=== PATIENT | male | born 1940 | race Caucasian/White ===

== ENCOUNTER 2016-08-12 14:34 | Inpatient (IN) | payer OTHER, MEDICARE ==
[2016-08-12] VITALS (8 sets, daily range): BP systolic 136–148; BP diastolic 79–90; PULSE 64–70; TEMP 36.5–36.7; O2SAT 95–98; Ht 165.1 cm; Wt 106.8 kg
[~2016-08-12] VITALS: Ht 165.1 cm; Wt 106.8 kg
[~2016-08-12 14:34] MED LIST: AMT10 PO; BCTRO EXT; BTP80 PO; Boost Nutritional Drink PO; CMD2 PO; CYM60 PO; DICL1GEL28 TOP; LORA-741 PO; MAGNSUS5 PO; MENTOIN12 EXT; NYST80OI TOP; OXGN; OXYC1TAB3 PO; PANT40TA PO; POLY99.02 OPB; POTA-327 PO; PREG1CAP36 PO; SALI0.6517 NAE; SIME1CHW3 PO; TYL325X PO
[2016-08-12] MEDS ORDERED: SODIUM CHLORIDE 0.9% 1000ML 1,000 ML IV STA (14:41)
[2016-08-12] MEDS ORDERED: ONDANSETRON INJ 2 MG/ML 2 ML VIAL IV STA (14:41)
[2016-08-12] MEDS ORDERED: FENTANYL CITRATE INJ 50 MCG/1 ML 2 ML VIAL IV PRN (14:45)
[2016-08-12] MEDS ORDERED: OPTIRAY 320 IV PRN (15:00)
--- NOTE | 2016-08-12 15:07 | DIAGNOSTIC IMAGING REPORT ---
CHEST ONE VIEW PORTABLE CLINICAL HISTORY: ABDOMINAL PAIN/GI pain. Nausea. COMPARISON STUDY: 05/03/2016 FINDINGS: Mild stable cardiomegaly. This is diminished from the prior exam. Diaphragms are smooth. Lungs Volumes are diminished. No focal infiltrate. IMPRESSION: Chronic change. No acute process. Electronically signed by: Julian Vargas M.D. 08/12/2016 3:06 PM Dictated Date/Time: 08/12/2016 3:05 PM
[2016-08-12 15:08] LABS: BASO % 0.2 %; BASO ABS # 0.01 K/uL (0-0.2); COMPLETE YES; HEMATOCRIT 36.6 % (42-52); IG% 0.9 %; LYMPH % 20.4 %; LYMPH ABS # 1.17 K/uL (1.2-3.4); MEAN CELL VOLUME 81.9 fL (80-100); MEAN CORPUSCULAR HEMOGLOBIN 26.2 pg (25-34); MEAN PLATELET VOLUME 9.8 fL (7.4-10.4); MONO % 13.1 %; NEUT % 64.4 %; PLATELET COUNT 232 K/uL (130-400); RED BLOOD COUNT 4.47 M/uL (4.7-6.1); WHITE BLOOD COUNT 5.73 K/uL (4.8-10.8)
[2016-08-12] MEDS ORDERED: MOML PO (15:17)
[2016-08-12] MEDS ORDERED: SALI0.6517 NAE ×2 (15:17→15:51)
[2016-08-12] MEDS ORDERED: OXYC-609 PO (15:17)
--- NOTE | 2016-08-12 15:17 | EMERGENCY ROOM VISIT NOTE ---
History Report prepared by Victorino: Fay Mckinley Under the Supervision of: Dr. Juan Douglass M.D. First contact with patient: 14:35 Chief Complaint: ABDOMINAL PAIN Stated Complaint: ABDOMINAL PAIN History of Present Illness The patient is a 76 year old male who presents to the Emergency Room from [place] with complaints of abdominal pain that began yesterday. It is worse today than it was yesterday. His current pain is a 7-8/10 in severity. The pain is constant and eating does not seem to make it worse. He had 2 Tylenol today for his discomfort. He has never had pain this intense in the past. The patient had an abdominal x-ray yesterday which did not show any obstruction. He also complains of increased shortness of breath recently. He does not normally wear oxygen. The patient had pneumonia recently and was recently on antibiotics. He did have a large bowel movement today. Denies fever, nausea, vomiting, or other complaints. He does still have his gallbladder and appendix. 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 He is on Coumadin. Source of History: patient Onset: yesterday Position: abdomen Symptom Intensity: 7-8/10 Timing: worsening Associated Symptoms: + SOB, No fevers, No nausea, No vomiting Review of Systems See HPI for pertinent positives & negatives. A total of 10 systems reviewed and were otherwise negative. 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 (14) UTI (urinary tract infection) (15) Warfarin anticoagulation Surgical Problems: (1) H/O inguinal hernia repair (2) H/O sinus surgery (3) Status post hip hemiarthroplasty (4) Status post removal right hip prosthesis (5) Status post total knee replacement Family History Cerebral aneurysm BROTHER Colon cancer SISTER Diabetes mellitus MOTHER Heart disease FATHER MOTHER Hypertension FATHER Prostate cancer FATHER Stroke FATHER Social History Smoking Status: Former Smoker Alcohol Use: none Drug Use: none Marital Status: single Housing Status: lives alone, half-way Occupation Status: retired Current/Historical Medications Scheduled Acetaminophen (Tylenol), 500 MG PO TID Amitriptyline HCl (Amitriptyline HCl), 10 MG PO BID Amlodipine (Norvasc), 5 MG PO DAILY Amoxicillin & Pot Clavulanate (Augmentin 875-125 mg), 1 TAB PO BID Aspirin (Aspirin Chewable), 81 MG PO QAM Baclofen (Baclofen), 20 MG PO BID Diclofenac Sodium (Topical) (Diclofenac Sodium), 1 APPLN TOP TID Duloxetine HCl (Duloxetine HCl), 60 MG PO QAM Emollient (Moisturizing Cream), 1 APPLN TOP HS Ferrous Sulfate (Ferrous Sulfate), 325 MG PO BIDM Furosemide (Lasix), 20 MG PO QAM Ipratropium-Albuterol (Duoneb), 1 TREATMENT INH Q6H Metformin Hcl (Glucophage), 1,000 MG PO BID Metolazone (Zaroxolyn), 2.5 MG PO 2XWK Mupirocin (Bactroban 2% Oint), 1 APPLN TOP BID Nystatin (Nystatin Cream), 1 APPLN TOP BID Pantoprazole Sodium (Protonix), 40 MG PO QAM Polyvinyl Alcohol (Artificial Tears), 2 DROPS OPB UD Potassium Chloride (Potassium Chloride Er), 20 MEQ PO TID Prednisone (Prednisone), 40 MG PO UD Pregabalin (Lyrica), 50 MG PO AMPM Pregabalin (Lyrica), 75 MG PO QPM Rosuvastatin Calcium (Crestor), 10 MG PO DAILY Saline (Deep Sea Nasal Crane), 2 SPRAYS SABRINA UD Sennosides-Docusate Sodium (Senexon-S), 2 TABS PO DAILY Simethicone (Gas Relief Extra Strength), 125 MG PO TID Sotalol Hcl (Sotalol Hcl), 80 MG PO BID Warfarin Sodium (Coumadin), 2 MG PO 6XWK Warfarin Sodium (Coumadin), 4 MG PO WK Zinc Oxide (Topical) (Desitin), 1 APPLN TOP BID Scheduled PRN Acetaminophen (Tylenol), 650 MG PO Q4H PRN for Pain Alum & Mag Hydrox-Simethicone (Rulox), 30 ML PO QD PRN for Indigestion Bisacodyl (Bisacodyl), 10 MG OR UD PRN for Constipation Guaifenesin (Siltussin Sa), 5 ML PO Q4H PRN for Cough Magnesium Hydroxide (Milk Of Magnesia), 30 ML PO UD PRN for Constipation Oxycodone HCl (Oxycodone HCl), 5 MG PO Q4H PRN for Moderate to Severe Pain Oxygen (Oxygen), 2 LITERS NA UD PRN for Shortness of Breath Saline (Deep Sea Nasal Crane), 2 SPRAYS SABRINA Q4H PRN for DRYNESS Sodium Phosphate/Biphosphate (Fleet Enema), 1 EA OR UD PRN for Constipation Allergies Coded Allergies: Latex (Verified Allergy, Mild, UNSURE - FROM [facility], 04/29/16) Macrolides and Ketolides (Verified Allergy, Unknown, [facility], 04/29/16) Azithromycin (Verified Adverse Reaction, Mild, nausea, 04/29/16) with nausea and diarrhea Physical Exam Vital Signs Date Time Temp Pulse Resp B/P Pulse Ox O2 Delivery O2 Flow Rate FiO2 08/12/16 18:02 66 16 129/77 92 Room Air 08/12/16 16:04 63 16 113/73 97 Nasal Cannula 6.0 08/12/16 15:06 64 16 135/84 92 Nasal Cannula 6.0 08/12/16 14:38 36.4 65 16 138/101 90 Room Air Physical Exam GENERAL: Patient is in no acute distress. HEENT: No acute trauma, normocephalic atraumatic, mucous membranes moist, no nasal congestion, no scleral icterus. NECK: No stridor, no adenopathy, no meningismus, trachea is midline. LUNGS: Clear to auscultation bilaterally when listening anteriorly, no wheeze, no rhonchi, breath sounds equal. HEART: Without murmurs gallops or rubs, regular rate and rhythm. ABDOMEN: Firm and distended but there is no real tenderness, bowel sounds are positive, no obvious hernia, tympani with percussion, Cantrell catheter draining clear to yellow colored urine. EXTREMITIES: Chronic skin change without any active cellulitis, mild bilateral pedal edema, muscle wasting noted, no obvious deformity. NEUROLOGIC: He has no use of his lower extremities consistent with past history , awake alert and oriented with normal upper extremity movement bilaterally. SKIN: No rash, no jaundice, no diaphoresis. Medical Decision & Procedures ER Provider Diagnostic Interpretation: X ray results and stated below per my interpretation and radiologist interpretation. Other radiology results and stated below per my review and radiologist interpretation: CHEST ONE VIEW PORTABLE CLINICAL HISTORY: ABDOMINAL PAIN/GI pain. Nausea. COMPARISON STUDY: 05/03/2016 FINDINGS: Mild stable cardiomegaly. This is diminished from the prior exam. Diaphragms are smooth. Lungs Volumes are diminished. No focal infiltrate. IMPRESSION: Chronic change. No acute process. Electronically signed by: Julian Vargas M.D. 08/12/2016 3:06 PM Dictated Date/Time: 08/12/2016 3:[address] SCAN OF THE ABDOMEN AND PELVIS WITH IV CONTRAST CLINICAL HISTORY: Generalized abdominal pain. COMPARISON STUDY: Abdominal CT dated 05/04/2016. TECHNIQUE: Following the IV administration of 94 cc of Optiray 320, CT scan of the abdomen and pelvis is performed from the lung bases to the proximal femora. Images are reviewed in the axial, sagittal, and coronal planes. IV contrast was administered without complication. Automated dose control exposure was utilized. The examination is degraded by large body habitus, and by streak artifact from the body wall abutting the CT gantry. There is significant streak artifact in the upper abdomen from the patient's arms. CT DOSE: 1649.12 mGy.cm FINDINGS: Lung bases: The heart is enlarged and without pericardial effusion. There is dependent airspace consolidation. No pleural effusion is identified. Gynecomastia is noted. Liver: The contrast-enhanced liver is enlarged, measuring 18.5 cm in length. The liver demonstrates diffusely diminished attenuation consistent with hepatic steatosis. Fatty sparing is seen adjacent to gallbladder fossa. There is no intrahepatic biliary ductal dilatation. The hepatic veins and portal veins are patent. Gallbladder: Unremarkable. Spleen: Normal in size and attenuation. Pancreas: Moderately atrophic and grossly unremarkable. Adrenal glands: Unremarkable. Kidneys: The contrast enhanced kidneys demonstrate cortical atrophy and are without hydronephrosis. The kidneys enhance symmetrically. Bilateral subcentimeter cortical hypodensities likely represent cysts but are too small for definitive characterization. Abdominal vasculature: The abdominal aorta is normal in course and caliber noting advanced atherosclerotic calcification. 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 This is best seen on axial image #162. Bowel: The sigmoid colon is tortuous. There is focal twisting suggested involving the sigmoid colon on axial image #308. The upstream sigmoid colon is dilated, and the appearance is concerning for possible sigmoid volvulus. There is no evidence of small bowel obstruction. The small bowel loops are normal in caliber. Numerous pill fragment are identified in the cecum. The appendix is well-visualized and normal. Peritoneum: There is no intraperitoneal free air or abdominal ascites. There is near complete fatty atrophy of the paraspinous musculature and iliopsoas muscles. Lymphadenopathy: Mildly enlarged retroperitoneal and iliac chain lymph nodes are similar to previous. A left periaortic node on image #257 measures 1.1 cm short axis. A left external iliac node on image #392 measures 1.3 cm in short axis. Pelvic viscera: The bladder is partially decompressed around a Cantrell catheter and is grossly unremarkable. The prostate and seminal vesicles are normal as visualized. There is a small fat-containing left inguinal hernia. Skeletal structures: The skeletal structures are osteopenic. There is advanced lumbosacral spondylosis as well as mild scoliosis. Compression deformities are seen at T5, T6, T7, T8, T9, T10, and L5. There is near-complete bony fusion of L1 and L2. No lytic or blastic lesions are seen. Advanced destructive change is identified involving the right hip. This is similar in appearance to previous. Postoperative change is identified in the right ileum. Postoperative changes also partially Imaged in the left femur. IMPRESSION: 1. Findings are concerning for developing sigmoid volvulus. Surgical consultation is advised. 2. Mildly enlarged retroperitoneal and iliac chain lymph nodes are identified and similar appearance to 05/04/2016 examination. These are indeterminant and may be on a reactive basis. 3. Hepatomegaly and severe hepatic steatosis. 4. There is bibasilar dependent airspace consolidation. This likely represents atelectasis. Correlate clinically for evidence of developing pneumonia. 5. 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 6. Advanced destructive changes in the right hip are similar to previous. 7. Cardiomegaly. A pericardial effusion has resolved as compared to 05/04/2016. 8. Numerous compression deformities are noted throughout the imaged spine. 9. Additional changes as above. Electronically signed by: Juan Garcia M.D. 08/12/2016 4:42 PM Dictated Date/Time: 08/12/2016 4:28 PM Laboratory Results 08/12/16 14:56 Red Blood Count 4.47, Mean Corpuscular Volume 81.9, Mean Corpuscular Hemoglobin 26.2, Mean Corpuscular Hemoglobin Concent 32.0, Mean Platelet Volume 9.8, Neutrophils (%) (Auto) 64.4, Lymphocytes (%) (Auto) 20.4, Monocytes (%) (Auto) 13.1, Eosinophils (%) (Auto) 1.0, Basophils (%) (Auto) 0.2, Neutrophils # (Auto ) 3.69, Lymphocytes # (Auto) 1.17, Monocytes # (Auto) 0.75, Eosinophils # (Auto ) 0.06, Basophils # (Auto) 0.01 08/12/16 14:56 Test 08/12/16 14:56 08/12/16 15:20 08/12/16 17:11 08/12/16 17:30 White Blood Count 5.73 K/uL (4.8-10.8) Red Blood Count 4.47 M/uL (4.7-6.1) Hemoglobin 11.7 g/dL (14.0-18.0) Hematocrit 36.6 % (42-52) Mean Corpuscular Volume 81.9 fL (80-100) Mean Corpuscular Hemoglobin 26.2 pg (25-34) Mean Corpuscular Hemoglobin Concent 32.0 g/dl (32-36) Platelet Count 232 K/uL (130-400) Mean Platelet Volume 9.8 fL (7.4-10.4) Neutrophils (%) (Auto) 64.4 % Lymphocytes (%) (Auto) 20.4 % Monocytes (%) (Auto) 13.1 % Eosinophils (%) (Auto) 1.0 % Basophils (%) (Auto) 0.2 % Neutrophils # (Auto) 3.69 K/uL (1.4-6.5) Lymphocytes # (Auto) 1.17 K/uL (1.2-3.4) Monocytes # (Auto) 0.75 K/uL (0.11-0.59) Eosinophils # (Auto) 0.06 K/uL (0-0.5) Basophils # (Auto) 0.01 K/uL (0-0.2) RDW Standard Deviation 53.8 fL (36.4-46.3) RDW Coefficient of Variation 17.9 % (11.5-14.5) Immature Granulocyte % (Auto) 0.9 % Immature Granulocyte # (Auto) 0.05 K/uL (0.00-0.02) Anion Gap 12.0 mmol/L (3-11) Est Creatinine Clear Calc Drug Dose 62.3 ml/min Estimated GFR () 68.6 Estimated GFR (Non- 59.2 BUN/Creatinine Ratio 24.5 (10-20) Lactic Acid Level 1.9 mmol/L (0.4-2.0) Calcium Level 8.5 mg/dl (8.5-10.1) Total Bilirubin 0.2 mg/dl (0.2-1) Aspartate Amino Transf (AST/SGOT) 17 U/L (15-37) Alanine Aminotransferase (ALT/SGPT) 24 U/L (12-78) Alkaline Phosphatase 105 U/L (45-117) Troponin I < 0.015 ng/ml (0-0.045) Pro-B-Type Natriuretic Peptide 1145 pg/ml (0-900) Total Protein 8.4 gm/dl (6.4-8.2) Albumin 3.0 gm/dl (3.4-5.0) Globulin 5.4 gm/dl (2.5-4.0) Albumin/Globulin Ratio 0.6 (0.9-2) Lipase 104 U/L (73-393) Urine Color YELLOW Urine Appearance SL CLOUDY (CLEAR) Urine pH 5.5 (4.5-7.5) Urine Specific [place] 1.015 (1.000-1.030) Urine Protein NEG (NEG) Urine Glucose (UA) NEG (NEG) Urine Ketones NEG (NEG) Urine Occult Blood 3+ (NEG) Urine Nitrite POS (NEG) Urine Bilirubin NEG (NEG) Urine Urobilinogen NEG (NEG) Urine Leukocyte Esterase MODERATE (NEG) Urine RBC >30 /hpf (0-4) Urine WBC 10-30 /hpf (0-5) Urine Epithelial Cells 5-10 /lpf (0-5) Urine Bacteria NEG (NEG) Urine Hyaline Casts 1-5 /lpf (0-5) Bedside Prothrombin Time INR 2.1 (0.9-1.1) Prothrombin Time 19.6 SECONDS (9.0-12.0) Prothromb Time International Ratio 1.8 (0.9-1.1) Activated Partial Thromboplast Time 40.1 SECONDS (21.0-31.0) Partial Thromboplastin Ratio 1.5 Test 08/12/16 18:04 Laboratory results reviewed by me. Medications Administered Medications (Trade) Dose Ordered Sig/Betzy Route Start Time Stop Time Status Last Admin Dose Admin Ondansetron HCl 4 mg 4 mg NOW STAT IV 08/12/16 14:41 08/12/16 14:45 DC 08/12/16 15:00 4 MG Sodium Chloride (Nss 1000ml) 1,000 ml @ 200 mls/hr Q5H STAT IV 08/12/16 14:41 08/12/16 19:40 DC 08/12/16 15:03 200 MLS/HR Fentanyl Citrate (Fentanyl Inj) 50 mcg Q15M PRN IV 08/12/16 14:45 08/26/16 14:44 08/12/16 15:01 50 MCG Naloxone HCl (Narcan Inj) 0.4 mg STK-MED ONCE .ROUTE 08/12/16 17:10 08/12/16 17:11 DC 08/12/16 17:14 0.2 MG Piperacillin Sod/ Tazobactam Sod (Zosyn Iv) 4.5 gm NOW STAT IV 08/12/16 17:23 08/12/16 17:24 DC 08/12/16 17:23 4.5 GM ECG Indication: abdominal pain Rate (beats per minute): 64 Rhythm: normal sinus Findings: T-wave inversion (anterior and laterally), no ectopy Comparison ECG Date: 04/30/16 Change: T wave changes are more pronounced ED Course 1437: The patient was evaluated in room B8. A complete history and physical exam was performed. 1441: Ordered NSS 1000 ml @ 200 mls/hr IV, Zofran Inj 4 mg IV. 1445: Ordered Fentanyl Inj 50 mcg IV. 1653: I discussed the case with Dr. Garcia, General Surgery. He will be involved in the case but also requested that I speak with GI about the patient. 1700: I discussed the case with Dr. Angie [facility]. [facility] will be involved in the case. 1707: Upon reexamination the patient is feeling better but is slightly drowsy. 1710: I discussed the case with Dr. Turner, [facility] Hospitalist. The patient will be evaluated for further management. 1712: Ordered Narcan Inj 0.2 mg IV. 1718: I reassessed the patient. He was more alert after receiving Narcan. 1723: Ordered Zosyn 4.5 gm IV. 1735: I discussed the case with Dr. Rodriguez, [facility] Gastroenterology. Medical Decision Differential includes bowel obstruction, diverticulitis, appendicitis, acute cholecystitis, pancreatitis, bowel perforation, bowel ischemia, constipation, pneumonia, UTI, hernia. There is no leukocytosis or concerning anemia. No significant electrolyte abnormality or kidney failure. Lactic acid is not elevated making bowel ischemia less likely. There is no pancreatitis. EKG shows a sinus rhythm, there is no acute ischemia although there were some T-wave inversions seen. Cardiac enzyme testing times one is not suggestive of acute cardiac injury. Chest film shows no pneumonia, free air or pneumothorax. INR is elevated consistent with someone using Coumadin. Urinalysis does suggest infection. Abdominal and pelvis CT is suggestive of a sigmoid volvulus. Patient received IV saline, he was given IV Zofran for nausea and a small amount of IV fentanyl. He became pretty sedate after the fentanyl and I did give a small dose of IV Narcan, he then became much more awake. He received a dose of IV Zosyn for the potential UTI. I did speak to general surgery with the findings on CT, they suggested I speak to GI, I spoke to GI. I also spoke to the on-call hospitalist. I talked with the patient. He is aware of his findings. He is being seen by the GI and surgical specialists, intervention will likely be required, I will leave this decision to them. The patient's abdominal pain is explained by the findings on CT. He is presently resting fairly comfortably. Admission/observation is warranted. Consults Time Called: 1648 Consulting Physician: Dr. Garcia, General Surgery Returned Call: 1653 I discussed the case with him. He will be involved in the case but also requested that I speak with GI about the patient. Additional Consults: Time Called: 1655 Consulted Physician: Dr. Angie [facility] Returned Call: 1700 Additional Comments: I discussed the case with him. [facility] will be involved in the case. Time Called: 1706 Consulted Physician: Dr. Turner, [facility] Hospitalist Returned Call: 1710 Additional Comments: I discussed the case with him. The patient will be evaluated for further management. OTHER CONSULTS: 1737: I discussed the case with Dr. Rodriguez, [facility] Gastroenterology. Impression Primary Impression: Sigmoid volvulus Additional Impressions: Diffuse abdominal pain UTI (urinary tract infection) Scribe Attestation The scribe's documentation has been prepared under my direction and personally reviewed by me in its entirety. I confirm that the note above accurately reflects all work, treatment, procedures, and medical decision making performed by me. Departure Information Dispostion Being Evaluated By Hospitalist Referrals Lilo Davis M.D. (PCP) Patient Instructions My [facility] Problem Qualifiers
[2016-08-12] MEDS ORDERED: GUAI100S75 PO (15:19)
[2016-08-12] MEDS ORDERED: LYR50 PO (15:20)
[2016-08-12] MEDS ORDERED: FURO-85 PO (15:20)
[2016-08-12] MEDS ORDERED: NYSCR30 TOP (15:23)
[2016-08-12] MEDS ORDERED: BCTROWC TOP (15:23)
[2016-08-12] MEDS ORDERED: [UNRECOGNIZED DRUG - CODE] TOP (15:25)
[2016-08-12 15:30] LABS: ALT/SGPT 24 U/L (12-78); BLOOD UREA NITROGEN 29 mg/dl (7-18); BUN/CREATININE RATIO 24.5 (10-20); CALCIUM 8.5 mg/dl (8.5-10.1); CARBON DIOXIDE 28 mmol/L (21-32); CHLORIDE 93 mmol/L (98-107); GLUCOSE 148 mg/dl (70-99); POTASSIUM 4.1 mmol/L (3.5-5.1); SODIUM 133 mmol/L (136-145)
[2016-08-12] MEDS ORDERED: PRED20TA PO (15:30)
[2016-08-12 15:35] LABS: ALB/GLOB RATIO 0.6 (0.9-2); ALKALINE PHOSPHATASE 105 U/L (45-117); AST/SGOT 17 U/L (15-37)
[2016-08-12 15:41] LABS: MANUAL MICROSCOPIC REQUIRED? YES; URINE APPEARANCE SL CLOUDY (CLEAR); URINE BILIRUBIN NEG (NEG); URINE COLOR YELLOW; URINE NITRITE POS (NEG); URINE PH 5.5 (4.5-7.5); URINE SPECIFIC GRAVITY 1.015 (1.000-1.030); UROBILINOGEN NEG (NEG)
[2016-08-12] MEDS ORDERED: ACET-1256 PO (15:45)
[2016-08-12] MEDS ORDERED: AMOX875T PO (15:45)
[2016-08-12] MEDS ORDERED: IPRASOL4 INH (15:54)
[2016-08-12 15:57] LABS: REVIEW REQ? NO
[2016-08-12] MEDS ORDERED: PREG75CA PO (15:58)
[2016-08-12 16:01] LABS: URINE BACTERIA NEG (NEG); URINE RBC >30 /hpf (0-4)
[2016-08-12] MEDS ORDERED: DICL1GEL34 TOP (16:01)
[2016-08-12] MEDS ORDERED: ZINC40OI11 TOP (16:04)
[2016-08-12] MEDS ORDERED: ALUM-76 PO (16:07)
[2016-08-12] MEDS ORDERED: WARF4TAB PO (16:13)
[2016-08-12] MEDS ORDERED: WARF2TAB PO (16:13)
--- NOTE | 2016-08-12 16:44 | DIAGNOSTIC IMAGING REPORT ---
CT SCAN OF THE ABDOMEN AND PELVIS WITH IV CONTRAST CLINICAL HISTORY: Generalized abdominal pain. COMPARISON STUDY: Abdominal CT dated 05/04/2016. TECHNIQUE: Following the IV administration of 94 cc of Optiray 320, CT scan of the abdomen and pelvis is performed from the lung bases to the proximal femora. Images are reviewed in the axial, sagittal, and coronal planes. IV contrast was administered without complication. Automated dose control exposure was utilized. The examination is degraded by large body habitus, and by streak artifact from the body wall abutting the CT gantry. There is significant streak artifact in the upper abdomen from the patient's arms. CT DOSE: 1649.12 mGy.cm FINDINGS: Lung bases: The heart is enlarged and without pericardial effusion. There is dependent airspace consolidation. No pleural effusion is identified. Gynecomastia is noted. Liver: The contrast-enhanced liver is enlarged, measuring 18.5 cm in length. The liver demonstrates diffusely diminished attenuation consistent with hepatic steatosis. Fatty sparing is seen adjacent to gallbladder fossa. There is no intrahepatic biliary ductal dilatation. The hepatic veins and portal veins are patent. Gallbladder: Unremarkable. Spleen: Normal in size and attenuation. Pancreas: Moderately atrophic and grossly unremarkable. Adrenal glands: Unremarkable. Kidneys: The contrast enhanced kidneys demonstrate cortical atrophy and are without hydronephrosis. The kidneys enhance symmetrically. Bilateral subcentimeter cortical hypodensities likely represent cysts but are too small for definitive characterization. Abdominal vasculature: The abdominal aorta is normal in course and caliber noting advanced atherosclerotic calcification. 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 This is best seen on axial image #162. Bowel: The sigmoid colon is tortuous. There is focal twisting suggested involving the sigmoid colon on axial image #308. The upstream sigmoid colon is dilated, and the appearance is concerning for possible sigmoid volvulus. There is no evidence of small bowel obstruction. The small bowel loops are normal in caliber. Numerous pill fragment are identified in the cecum. The appendix is well-visualized and normal. Peritoneum: There is no intraperitoneal free air or abdominal ascites. There is near complete fatty atrophy of the paraspinous musculature and iliopsoas muscles. Lymphadenopathy: Mildly enlarged retroperitoneal and iliac chain lymph nodes are similar to previous. A left periaortic node on image #257 measures 1.1 cm short axis. A left external iliac node on image #392 measures 1.3 cm in short axis. Pelvic viscera: The bladder is partially decompressed around a Cantrell catheter and is grossly unremarkable. The prostate and seminal vesicles are normal as visualized. There is a small fat-containing left inguinal hernia. Skeletal structures: The skeletal structures are osteopenic. There is advanced lumbosacral spondylosis as well as mild scoliosis. Compression deformities are seen at T5, T6, T7, T8, T9, T10, and L5. There is near-complete bony fusion of L1 and L2. No lytic or blastic lesions are seen. Advanced destructive change is identified involving the right hip. This is similar in appearance to previous. Postoperative change is identified in the right ileum. Postoperative changes also partially Imaged in the left femur. IMPRESSION: 1. Findings are concerning for developing sigmoid volvulus. Surgical consultation is advised. 2. Mildly enlarged retroperitoneal and iliac chain lymph nodes are identified and similar appearance to 05/04/2016 examination. These are indeterminant and may be on a reactive basis. 3. Hepatomegaly and severe hepatic steatosis. 4. There is bibasilar dependent airspace consolidation. This likely represents atelectasis. Correlate clinically for evidence of developing pneumonia. 5. 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 6. Advanced destructive changes in the right hip are similar to previous. 7. Cardiomegaly. A pericardial effusion has resolved as compared to 05/04/2016. 8. Numerous compression deformities are noted throughout the imaged spine. 9. Additional changes as above. Electronically signed by: Juan Garcia M.D. 08/12/2016 4:42 PM Dictated Date/Time: 08/12/2016 4:28 PM
[2016-08-12] MEDS ORDERED: BISA10SU5 PR (17:00)
[2016-08-12] MEDS ORDERED: SODIENE PR (17:00)
[2016-08-12] MEDS ORDERED: LRS20 PO (17:08)
[2016-08-12] MEDS ORDERED: CRS10 PO (17:08)
[2016-08-12] MEDS ORDERED: ASPCH81X PO (17:08)
[2016-08-12] MEDS ORDERED: NALOXONE HCL 0.4 MG/1 ML VIAL/CARP ONE (17:10)
[2016-08-12] MEDS ORDERED: NALOXONE HCL 0.4 MG/1 ML VIAL/CARP IV STA (17:12)
[2016-08-12] MEDS ORDERED: PIPERACILLIN/TAZOBACTAM 4.5 GM/100ML D5W IV STA (17:23)
[2016-08-12 17:55] LABS: INR 1.8 (0.9-1.1); PARTIAL THROMBOPLASTIN RATIO 1.5; PROTHROMBIN TIME (PATIENT) 19.6 SECONDS (9.0-12.0)
[2016-08-12] MEDS ORDERED: CONSULT PHARMACY STA (18:04)
--- NOTE | 2016-08-12 18:27 | History and Physical ---
History & Physical Date & Time of Service: Aug 12, 2016 at 18:22 Chief Complaint: Abdominal Pain Primary Care Physician: Lilo Davis M.D. 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 Patient lives at [facility] and follows with Dr. Davis. Patient at his baseline state of health until yesterday when he was noted to be wheezing and hypoxic. CXR showed possible atelectasis. He was started on Augmentin, Nebs and Prednisone and apparently was improved from that standpoint per [place] records. Today though, patient had increasing abdominal pain and was brought to the ER for evaluation. At the ED, CT abdomen showed possible sigmoid volvulus. GI and Gen Surg consulted. Patient was given Fentanyl at the ER, but was then noted to be "loopy" and hence was given Narcan. On my exam, patient was sleeping but easily rousable. He is oriented x 2. Denies abdominal pain, nausea. Denies dyspnea, has occasional cough and sputum, no fever/chills. No other symptoms. 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 (13) Warfarin anticoagulation Status: Chronic Surgical Problems: (1) H/O inguinal hernia repair Status: Chronic (2) H/O sinus surgery Status: Chronic (3) Status post hip hemiarthroplasty Permanent Comment: right Status: Chronic (4) Status post removal right hip prosthesis Status: Chronic (5) Status post total knee replacement Permanent Comment: BL, with revision of left Status: Chronic Family History Cerebral aneurysm BROTHER Colon cancer SISTER Diabetes mellitus MOTHER Heart disease FATHER MOTHER Hypertension FATHER Prostate cancer FATHER Stroke FATHER Social History Smoking Status: Former Smoker Drug Use: none Marital Status: single Housing status: correction Occupational Status: retired Immunizations History of Influenza Vaccine: Yes Influenza Vaccine Date: Apr 01, 2014 History of Tetanus Vaccine?: Yes Tetanus Immunization Date: May 13, 1996 History of Pneumococcal: Yes Pneumococcal Date: Jun 26, 2010 History of Hepatitis B Vaccine: No Multi-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, MRSA Allergies Coded Allergies: Latex (Verified Allergy, Mild, UNSURE - FROM [facility], 04/29/16) Macrolides and Ketolides (Verified Allergy, Unknown, UNKN, 04/29/16) Azithromycin (Verified Adverse Reaction, Mild, nausea, 04/29/16) with nausea and diarrhea Home Medications Scheduled Acetaminophen (Tylenol), 500 MG PO TID Amitriptyline HCl (Amitriptyline HCl), 10 MG PO BID Amlodipine (Norvasc), 5 MG PO DAILY Amoxicillin & Pot Clavulanate (Augmentin 875-125 mg), 1 TAB PO BID Aspirin (Aspirin Chewable), 81 MG PO QAM Baclofen (Baclofen), 20 MG PO BID Diclofenac Sodium (Topical) (Diclofenac Sodium), 1 APPLN TOP TID Duloxetine HCl (Duloxetine HCl), 60 MG PO QAM Emollient (Moisturizing Cream), 1 APPLN TOP HS Ferrous Sulfate (Ferrous Sulfate), 325 MG PO BIDM Furosemide (Lasix), 20 MG PO QAM Ipratropium-Albuterol (Duoneb), 1 TREATMENT INH Q6H Metformin Hcl (Glucophage), 1,000 MG PO BID Metolazone (Zaroxolyn), 2.5 MG PO 2XWK Mupirocin (Bactroban 2% Oint), 1 APPLN TOP BID Nystatin (Nystatin Cream), 1 APPLN TOP BID Pantoprazole Sodium (Protonix), 40 MG PO QAM Polyvinyl Alcohol (Artificial Tears), 2 DROPS OPB UD Potassium Chloride (Potassium Chloride Er), 20 MEQ PO TID Prednisone (Prednisone), 40 MG PO UD Pregabalin (Lyrica), 50 MG PO AMPM Pregabalin (Lyrica), 75 MG PO QPM Rosuvastatin Calcium (Crestor), 10 MG PO DAILY Saline (Deep Sea Nasal [place]), 2 SPRAYS SABRINA UD Sennosides-Docusate Sodium ([place]-S), 2 TABS PO DAILY Simethicone (Gas Relief Extra Strength), 125 MG PO TID Sotalol Hcl (Sotalol Hcl), 80 MG PO BID Warfarin Sodium (Coumadin), 2 MG PO 6XWK Warfarin Sodium (Coumadin), 4 MG PO WK Zinc Oxide (Topical) (Desitin), 1 APPLN TOP BID Scheduled PRN Acetaminophen (Tylenol), 650 MG PO Q4H PRN for Pain Alum & Mag Hydrox-Simethicone (Rulox), 30 ML PO QD PRN for Indigestion Bisacodyl (Bisacodyl), 10 MG NV UD PRN for Constipation Guaifenesin (Siltussin Sa), 5 ML PO Q4H PRN for Cough Magnesium Hydroxide (Milk Of Magnesia), 30 ML PO UD PRN for Constipation Oxycodone HCl (Oxycodone HCl), 5 MG PO Q4H PRN for Moderate to Severe Pain Oxygen (Oxygen), 2 LITERS NA UD PRN for Shortness of Breath Saline (Deep Sea Nasal [place]), 2 SPRAYS SABRINA Q4H PRN for DRYNESS Sodium Phosphate/Biphosphate (Fleet Enema), 1 EA NV UD PRN for Constipation Review of Systems Constitutional- no fever; no weight loss Eyes- no acute visual changes ENT- no sinus drainage; no pharyngitis Pulmonary- no cough, no wheezing, no shortness of breath Cardiac- no chest pain, no palpitations, no orthopnea, no dependent edema GI- (+) as noted above - no dysuria, no hematuria Musculoskeletal- no arthralgias, no myalgias Derm- no rashes, no new skin lesions, no changing skin lesions Hematologic- no unusual bruising, no unusual bleeding Lymphatics- no adenopathy Endocrine- no polyuria or polydipsia; no heat or cold intolerance Neuro- no headaches, no focal neurologic symptoms Psych- no anxiety, no depression Physical Exam Vital Signs Date Time Temp Pulse Resp B/P Pulse Ox O2 Delivery O2 Flow Rate FiO2 08/12/16 18:02 66 16 129/77 92 Room Air 08/12/16 16:04 63 16 113/73 97 Nasal Cannula 6.0 08/12/16 15:06 64 16 135/84 92 Nasal Cannula 6.0 08/12/16 14:38 36.4 65 16 138/101 90 Room Air General Appearance: WD/WN, no apparent distress Head: normocephalic, atraumatic Eyes: normal inspection, PERRL, EOMI, sclerae normal ENT: normal ENT inspection, hearing grossly normal, pharynx normal Neck: supple, no adenopathy, thyroid normal, no JVD, trachea midline Respiratory/Chest: chest non-tender, lungs clear, normal breath sounds, no respiratory distress, no accessory muscle use Cardiovascular: regular rate, rhythm, no edema, no murmur Abdomen/GI: normal bowel sounds, non tender, soft, + pertinent finding ( distended) Extremities/Musculoskelatal: + pertinent finding (mild lower leg edema and warmth, no tenderness) Neurologic/Psych: merchandising specialist II-XII nml as tested, no motor/sensory deficits, alert, normal mood/affect, normal reflexes, oriented x 3 Skin: normal color, warm/dry Lymphatic: no adenopathy Diagnostics Laboratory Results Results Past 24 Hours Test 08/12/16 14:56 08/12/16 15:20 08/12/16 17:11 08/12/16 17:30 Range/Units White Blood Count 5.73 4.8-10.8 K/uL Red Blood Count 4.47 4.7-6.1 M/uL Hemoglobin 11.7 14.0-18.0 g/dL Hematocrit 36.6 42-52 % Mean Corpuscular Volume 81.9 80-100 fL Mean Corpuscular Hemoglobin 26.2 25-34 pg Mean Corpuscular Hemoglobin Concent 32.0 32-36 g/dl Platelet Count 232 130-400 K/uL Mean Platelet Volume 9.8 7.4-10.4 fL Neutrophils (%) (Auto) 64.4 % Lymphocytes (%) (Auto) 20.4 % Monocytes (%) (Auto) 13.1 % Eosinophils (%) (Auto) 1.0 % Basophils (%) (Auto) 0.2 % Neutrophils # (Auto) 3.69 1.4-6.5 K/uL Lymphocytes # (Auto) 1.17 1.2-3.4 K/uL Monocytes # (Auto) 0.75 0.11-0.59 K/uL Eosinophils # (Auto) 0.06 0-0.5 K/uL Basophils # (Auto) 0.01 0-0.2 K/uL RDW Standard Deviation 53.8 36.4-46.3 fL RDW Coefficient of Variation 17.9 11.5-14.5 % Immature Granulocyte % (Auto) 0.9 % Immature Granulocyte # (Auto) 0.05 0.00-0.02 K/uL Sodium Level 133 136-145 mmol/L Potassium Level 4.1 3.5-5.1 mmol/L Chloride Level 93 98-107 mmol/L Carbon Dioxide Level 28 21-32 mmol/L Anion Gap 12.0 3-11 mmol/L Blood Urea Nitrogen 29 7-18 mg/dl Creatinine 1.20 0.60-1.40 mg/dl Est Creatinine Clear Calc Drug Dose 62.3 ml/min Estimated GFR () 68.6 Estimated GFR (Non- 59.2 BUN/Creatinine Ratio 24.5 10-20 Random Glucose 148 70-99 mg/dl Lactic Acid Level 1.9 0.4-2.0 mmol/L Calcium Level 8.5 8.5-10.1 mg/dl Total Bilirubin 0.2 0.2-1 mg/dl Aspartate Amino Transf (AST/SGOT) 17 15-37 U/L Alanine Aminotransferase (ALT/SGPT) 24 12-78 U/L Alkaline Phosphatase 105 45-117 U/L Troponin I < 0.015 0-0.045 ng/ml Total Protein 8.4 6.4-8.2 gm/dl Albumin 3.0 3.4-5.0 gm/dl Globulin 5.4 2.5-4.0 gm/dl Albumin/Globulin Ratio 0.6 0.9-2 Lipase 104 73-393 U/L Urine Color YELLOW Urine Appearance SL CLOUDY CLEAR Urine pH 5.5 4.5-7.5 Urine Specific [place] 1.015 1.000-1.030 Urine Protein NEG NEG Urine Glucose (UA) NEG NEG Urine Ketones NEG NEG Urine Occult Blood 3+ NEG Urine Nitrite POS NEG Urine Bilirubin NEG NEG Urine Urobilinogen NEG NEG Urine Leukocyte Esterase MODERATE NEG Urine RBC >30 0-4 /hpf Urine WBC 10-30 0-5 /hpf Urine Epithelial Cells 5-10 0-5 /lpf Urine Bacteria NEG NEG Urine Hyaline Casts 1-5 0-5 /lpf Bedside Prothrombin Time INR 2.1 0.9-1.1 Prothrombin Time 19.6 9.0-12.0 SECONDS Prothromb Time International Ratio 1.8 0.9-1.1 Activated Partial Thromboplast Time 40.1 21.0-31.0 SECONDS Partial Thromboplastin Ratio 1.5 Test 08/12/16 18:04 Range/Units Microbiology Results 08/12/16 Blood Culture, Snow Batch Pending 08/12/16 Blood Culture, Ordered Pending Diagnostic Radiology CT abdomen:Findings are concerning for developing sigmoid volvulus CXR: no infiltrates EKG sinus rhythm, HR normal, non specific t wave depressions in the anterior leads Impression Assessment and Plan 76 year old male with history of CAD, Paroxysmal A fib on Coumadin, Paraplegia, Neurogenic Bladder s/p Surgery for Spinal Cord Tumor, Recurrent UTI, DM, HTN presenting with abdominal pain. ABDOMINAL PAIN POSSIBLE SIGMOID VOLVULUS NPO GI and Surgery consulted may need endoscopy, per NH staff, last meal 1230pm management of hypoxia, elevated INR noted below HYPOXIA POSSIBLE PNEUMONIA/BRONCHITIS R/O CHF EXACERBATION - CT chest ABG - empiric Zosyn and Levaquin Solumedrol Nebs q6h NON SPECIFIC T WAVE INVERSION, ANTERIOR LEADS - no cardiac symptoms serial cardiac markers echo POSSIBLE UTI HISTORY OF RECURRENT UTI - urine culture blood culture - on empiric Zosyn and Levaquin EPISODE OF CONFUSION - after receiving Fentanyl Narcan given - oriented on my exam CAD - hold Aspirin for possible GI/Surgical Intervention PAROXYSMAL A FIB - INR 1.8 hold coumadin continue Sotalol - INR daily DIASTOLIC CHF - check BNP, CT chest hold diuretics for now NEUROGENIC BLADDER PARAPLEGIA,S/P SURGERY FOR SPINAL CORD TUMOR DM 2 - ISS for now usually on Metformin HTN - hold Amlodipine for now DVT prophylaxis - INR 1.8 usually on coumadin Code Status - Full Code Disposition resident of [facility] Prophylaxis [facility]TE Risk Assessment Done? Y/N: Yes Risk Level: Moderate
[2016-08-12] MEDS ORDERED: LEVALBUTEROL/IPRATROPIUM NEB INH SCH (18:30)
[2016-08-12] MEDS ORDERED: ONDANSETRON INJ 2 MG/ML 2 ML VIAL IV PRN ×2 (18:30→20:15)
[2016-08-12] MEDS ORDERED: METF-384 PO (19:06)
[2016-08-12] MEDS ORDERED: PHARMACY GLYCEMIC MGMT CONSULT PRN (19:30)
[2016-08-12] MEDS ORDERED: PIPERACILL/TAZOBAC CONSULT ACTIVE PRN (19:30)
[2016-08-12] MEDS ORDERED: LEVOFLOXACIN CONSULT ACTIVE PRN (19:30)
[2016-08-12 19:55] LABS: ZZURINE CULT IF INDIC CATH YES
[2016-08-12] MEDS ORDERED: KETAMINE HCL INJ 50 MG/ML 10 ML VIAL ONE (20:06)
[2016-08-12] MEDS ORDERED: MIDAZOLAM HCL 1 MG/ML 2ML VIAL ONE (20:09)
[2016-08-12] MEDS ORDERED: LACTATED RINGER'S 1000ML 1,000 ML IV PRN (20:15)
--- NOTE | 2016-08-12 20:24 | Gastrointestinal Consultation ---
Gastrointestinal Consultation Date of Consultation: Aug 12, 2016 Attending Physician: Dr. Turner Consulting Physician: Dr. 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 He presented to the ER from [place] with increasing abdominal pain and distension. He tells me this started yesterday evening. He was also recently started on antibiotics, steroids and nebs for SOB and possible pneumonia. Work up in the ER today is significant for likely sigmoid volvulus. He is hemodynamically stable but noted to have hypoxia in the ER with sats in the high 80's on RA and low 90's on 4-6 L O2. He tells me he has never had a colonoscopy. Past Medical/Surgical History Medical Problems: (1) Altered mental status Status: Acute (2) Altered mental status Status: Acute (3) Altered mental status Status: Acute (4) Diffuse abdominal pain Status: Acute (5) Dislodged Kohli catheter Status: Acute (6) Fever Status: Acute (7) Hematuria Status: Acute (8) Hyperglycemia Status: Acute (9) Hypomagnesemia Status: Acute (10) Hypoxia Status: Acute (11) Hypoxia Status: Acute (12) Lactic acid acidosis Status: Acute (13) Left lower lobe pneumonia Status: Acute (14) Leukocytosis Status: Acute (15) Pneumonia Status: Acute (16) Renal insufficiency Status: Acute (17) Sigmoid volvulus Status: Acute (18) UTI (urinary tract infection) Status: Acute (19) UTI (urinary tract infection) Status: Acute (20) UTI (urinary tract infection) Status: Acute (21) UTI (urinary tract infection) Status: Acute Past Medical History: as noted in HPI Past Surgical History: multiple orthopedic surgeries spinal surgery hernia repair Family History Cerebral aneurysm BROTHER Colon cancer SISTER Diabetes mellitus MOTHER Heart disease FATHER MOTHER Hypertension FATHER Prostate cancer FATHER Stroke FATHER Social History Smoking Status: Former Smoker Alcohol Use: none Drug Use: none Marital Status: single Housing Status: lives alone, residential Occupation Status: retired Allergies Coded Allergies: Latex (Verified Allergy, Mild, UNSURE - FROM [facility] [place], 04/29/16) Macrolides and Ketolides (Verified Allergy, Unknown, UNKN, 04/29/16) Azithromycin (Verified Adverse Reaction, Mild, nausea, 04/29/16) with nausea and diarrhea Current Medications Home Meds and Scripts Medications Dose Route/Sig Max Daily Dose Days Date Category Dose Instructions Coumadin (Warfarin Sodium) 4 Mg Tab 4 Mg PO WK 08/12/16 Reported TAKE 4 MG EVERY THURSDAY OR OTHERWISE DIRECTED TO TAKE BY ANTICOAGULATION CLINIC/MD Coumadin (Warfarin Sodium) 2 Mg Tab 2 Mg PO 6XWK 08/12/16 Reported TAKE 2 MG EVERY THURSDAY,THURSDAY,THURSDAY,THURSDAY,THURSDAY AND THURSDAY OR OTHERWISE DIRECTED TO TAKE BY ANTICOAGULATION CLINIC/ Sotalol Hcl 80 Mg Tab 80 Mg PO BID 08/12/16 Reported Rulox (Alum & Mag Hydrox-Simethicone) 1 Yasmeen Yasmeen 30 Ml PO QD PRN 08/12/16 Reported Desitin (Zinc Oxide (Topical)) 40 % Oin 1 Appln TOP BID 08/12/16 Reported APPLY TO SACRAL AREAS DIRECTED Diclofenac Sodium (Diclofenac Sodium (Topical)) 1 % Gel 1 Appln TOP TID 08/12/16 Reported APPLY DIRECTED TO LEFT SHOULDER Lyrica (Pregabalin) 75 Mg Cap 75 Mg PO QPM 08/12/16 Reported Duoneb (Ipratropium-Albuterol) 3 Ml Nebu 1 Treatment INH Q6H 3 08/12/16 Reported PRESCRIBED 08/09/2016, ROUTINE FOR 3 DAYS Deep Sea Nasal [place] (Saline) 0.65 % Spr 2 Sprays SABRINA UD 08/12/16 Reported INSTILL 2 SPRAYS INTO EACH NOSTRIL AT THE FOLLOWING HOURS: 0700, 0900, 1100, 1500, 1700, 1900, 2100 AND 2300 HOURS Augmentin 875-125 mg (Amoxicillin & Pot Clavulanate) 1 Tab Tab 1 Tab PO BID 10 08/12/16 Reported PRESCRIBED 08/11/2016, TAKE DIRECTED UNTIL GONE Tylenol (Acetaminophen) 500 Mg Tab 500 Mg PO TID 08/12/16 Reported Artificial Tears (Polyvinyl Alcohol) 1.4 % Rossy 2 Drops OPB UD 08/12/16 Reported INSTIL 2 DROPS INTO BOTH EYES AT THESE HOURS: 0900 1100 1300 1500 1700 1900 2100 Prednisone 20 Mg Tab 40 Mg PO UD 5 08/12/16 Reported PRESCRIBED 08/11/2016, TAKE DIRECTED FOR 5 DAYS Potassium Chloride Er (Potassium Chloride) 10 Meq Tab 20 Meq PO TID 08/12/16 Reported Moisturizing Cream (Emollient) 1 Cre Cre 1 Appln TOP HS 08/12/16 Reported APPLY DIRECTED TO DRY FEET Nystatin Cream (Nystatin) 90 Appln/30 Gm Cr 1 Appln TOP BID 08/12/16 Reported APPLY TO REDDENED/ABRADED AREAS OF BUTTOCKS Bactroban 2% Oint (Mupirocin) 66 Appln/22 Gm Oint 1 Appln TOP BID 08/12/16 Reported APPLY DIRECTED TO SACRUM Siltussin Sa (Guaifenesin) 100 Mg/5 Ml Syp 5 Ml PO Q4H PRN 08/12/16 Reported Oxycodone HCl 5 Mg Tab 5 Mg PO Q4H PRN 08/12/16 Reported Milk Of Magnesia (Magnesium Hydroxide) 30 Ml Susp 30 Ml PO UD PRN 08/12/16 Reported ONE TIME DAILY FOR NO BOWEL MOVEMENT FOR 3 DAYS. ADMINISTER ON THE MORNING OF DAY 4. Deep Sea Nasal [place] (Saline) 0.65 % Spr 2 Sprays SABRINA Q4H PRN 08/12/16 Reported Gas Relief Extra Strength (Simethicone) 125 Mg Chw 125 Mg PO TID 04/29/16 Reported Norvasc (Amlodipine Besylate) 5 Mg Tab 5 Mg PO DAILY 04/29/16 Reported Zaroxolyn (Metolazone) 2.5 Mg Tab 2.5 Mg PO 2XWK 04/07/16 Reported TAKE THIS MEDICATION EVERY THURSDAY AND THURSDAY Lyrica (Pregabalin) 50 Mg Cap 50 Mg PO AMPM 04/07/16 Reported Lasix (Furosemide) 20 Mg Tab 20 Mg PO QAM 04/07/16 Reported Tylenol (Acetaminophen) 325 Mg Tab 650 Mg PO Q4H PRN 02/20/16 Reported Oxygen Gas 2 Liters NA UD PRN 02/20/16 Reported Glucophage (Metformin Hcl) 1,000 Mg Tab 1,000 Mg PO BID 02/05/16 Reported Fleet Enema (Sodium Phosphate/Biphosphate) Keila 1 Ea IL UD PRN 02/05/16 Reported DAILY NEEDED ON DAY 6 IF DULCOLAX SUPPOSITORY WAS INEFFECTIVE Bisacodyl 10 Mg Sup 10 Mg IL UD PRN 02/05/16 Reported DAILY NEEDED FOR NO BOWEL MOVEMENT FOR 5 DAYS IF MOM INEFFECTIVE Senexon-S (Sennosides-Docusate Sodium) 1 Tab Tab 2 Tabs PO DAILY 02/05/16 Reported Protonix (Pantoprazole Sodium) 40 Mg Tab 40 Mg PO QAM 01/07/16 Reported Duloxetine HCl 60 Mg Cap 60 Mg PO QAM 12/20/15 Reported Amitriptyline HCl 10 Mg Tab 10 Mg PO BID 08/25/15 Reported Ferrous Sulfate 325 Mg Tab 325 Mg PO BIDM 04/20/15 Reported Baclofen 20 Mg Tab 20 Mg PO BID 04/20/15 Reported Crestor (Rosuvastatin Calcium) 10 Mg Tab 10 Mg PO DAILY 04/20/15 Reported Aspirin Chewable (Aspirin) 81 Mg Chew 81 Mg PO QAM 04/20/15 Reported Review of Systems 12 systems reviewed and negative except as noted Physical Exam Date Time Temp Pulse Resp B/P Pulse Ox O2 Delivery O2 Flow Rate FiO2 08/12/16 20:03 66 16 133/80 92 08/12/16 18:02 66 16 129/77 92 Room Air 08/12/16 16:04 63 16 113/73 97 Nasal Cannula 6.0 08/12/16 15:06 64 16 135/84 92 Nasal Cannula 6.0 08/12/16 14:38 36.4 65 16 138/101 90 Room Air General Appearance: WD/WN, + mild distress Eyes: normal inspection, EOMI ENT: normal ENT inspection, hearing grossly normal, + pertinent finding (MM dry ) Neck: supple, no adenopathy, no JVD Respiratory/Chest: chest non-tender, no respiratory distress, + decreased breath sounds, + wheezing Cardiovascular: regular rate, rhythm Abdomen: + pertinent finding (distended, tympanitic, no guarding) Extremities: + pedal edema Neurologic/Psych: + pertinent finding (LE paraplegia) Skin: normal color, no jaundice, warm/dry Laboratory Results Last 24 Hours Test 08/12/16 14:56 08/12/16 15:20 08/12/16 17:11 08/12/16 17:30 White Blood Count 5.73 K/uL Red Blood Count 4.47 M/uL Hemoglobin 11.7 g/dL Hematocrit 36.6 % Mean Corpuscular Volume 81.9 fL Mean Corpuscular Hemoglobin 26.2 pg Mean Corpuscular Hemoglobin Concent 32.0 g/dl Platelet Count 232 K/uL Mean Platelet Volume 9.8 fL Neutrophils (%) (Auto) 64.4 % Lymphocytes (%) (Auto) 20.4 % Monocytes (%) (Auto) 13.1 % Eosinophils (%) (Auto) 1.0 % Basophils (%) (Auto) 0.2 % Neutrophils # (Auto) 3.69 K/uL Lymphocytes # (Auto) 1.17 K/uL Monocytes # (Auto) 0.75 K/uL Eosinophils # (Auto) 0.06 K/uL Basophils # (Auto) 0.01 K/uL RDW Standard Deviation 53.8 fL RDW Coefficient of Variation 17.9 % Immature Granulocyte % (Auto) 0.9 % Immature Granulocyte # (Auto) 0.05 K/uL Sodium Level 133 mmol/L Potassium Level 4.1 mmol/L Chloride Level 93 mmol/L Carbon Dioxide Level 28 mmol/L Anion Gap 12.0 mmol/L Blood Urea Nitrogen 29 mg/dl Creatinine 1.20 mg/dl Est Creatinine Clear Calc Drug Dose 62.3 ml/min Estimated GFR () 68.6 Estimated GFR (Non- 59.2 BUN/Creatinine Ratio 24.5 Random Glucose 148 mg/dl Lactic Acid Level 1.9 mmol/L Calcium Level 8.5 mg/dl Total Bilirubin 0.2 mg/dl Aspartate Amino Transf (AST/SGOT) 17 U/L Alanine Aminotransferase (ALT/SGPT) 24 U/L Alkaline Phosphatase 105 U/L Troponin I < 0.015 ng/ml Pro-B-Type Natriuretic Peptide 1145 pg/ml Total Protein 8.4 gm/dl Albumin 3.0 gm/dl Globulin 5.4 gm/dl Albumin/Globulin Ratio 0.6 Lipase 104 U/L Urine Color YELLOW Urine Appearance SL CLOUDY Urine pH 5.5 Urine Specific [place] 1.015 Urine Protein NEG Urine Glucose (UA) NEG Urine Ketones NEG Urine Occult Blood 3+ Urine Nitrite POS Urine Bilirubin NEG Urine Urobilinogen NEG Urine Leukocyte Esterase MODERATE Urine RBC >30 /hpf Urine WBC 10-30 /hpf Urine Epithelial Cells 5-10 /lpf Urine Bacteria NEG Urine Hyaline Casts 1-5 /lpf Bedside Prothrombin Time INR 2.1 Prothrombin Time 19.6 SECONDS Prothromb Time International Ratio 1.8 Activated Partial Thromboplast Time 40.1 SECONDS Partial Thromboplastin Ratio 1.5 Test 08/12/16 18:04 Impression Patient is a 76 year old male with multiple co-morbidities including T5 paraplegia who presented with increasing abd pain and distension and imaging suggestive of a sigmoid volvulus. Plan - Emergent colonoscopy to be done in the OR. - Gentle IVF hydration. - Correction of electrolyte abnormalities. - Surgery consult.
[2016-08-12] MEDS ORDERED: SODIUM CHLORIDE 0.9% INJ 10 ML VIAL ONE (20:52)
[2016-08-12] MEDS: IPRATROPIUM BROMIDE NEB SOLN 0.02% 2.5 ML VIAL INH SCH (21:00)
[2016-08-12] MEDS: LEVALBUTEROL 1.25MG/0.5ML NEB INH SCH (21:00)
[2016-08-12] MEDS ORDERED: INSULIN ASPART 100 UNITS/ML 3 ML PEN SC SCH (21:00)
--- NOTE | 2016-08-12 21:08 | GI REPORT ---
Procedure Date: 08/12/2016 8:03 PM Procedure: Flexible Sigmoidoscopy Indications: Generalized abdominal pain, Abnormal CT of the GI tract, Volvulus Medicines: Sedation Administered by an Anesthesia Professional Complications: No immediate complications. Estimated blood loss: None. Estimated Blood Loss: Estimated blood loss: none. Procedure: Pre-Anesthesia Assessment: - Prior to the procedure, a History and Physical was performed, and patient medications, allergies and sensitivities were reviewed. The patient's tolerance of previous anesthesia was reviewed. - The risks and benefits of the procedure and the sedation options and risks were discussed with the patient. All questions were answered and informed consent was obtained. - Patient identification and proposed procedure were verified prior to the procedure by the physician and the nurse. The procedure was verified in the pre-procedure area in the procedure room. - Mental Status Examination: alert and oriented. Airway Examination: normal oropharyngeal airway and neck mobility. Respiratory Examination: poor air movement. CV Examination: normal. Abdominal Examination: abdomen tender, abdomen distended and abdomen tympanic upon percussion. - ASA Grade Assessment: E - Emergency. After obtaining informed consent, the endoscope was passed under direct vision. Throughout the procedure, the patient's blood pressure, pulse, and oxygen saturations were monitored continuously. The scope was introduced through the anus and advanced to the splenic flexure. The flexible sigmoidoscopy was accomplished without difficulty. The patient tolerated the procedure well. Findings: The perianal and digital rectal examinations were normal. Pertinent negatives include normal sphincter tone and no palpable rectal lesions. A volvulus, with viable appearing mucosa, was found in the sigmoid colon. Decompression of the volvulus was attempted and was successful, with complete decompression achieved. Following the maneuver, a tube was placed to maintain the decompression. Estimated blood loss: none. Normal mucosa was found in the descending colon. Stool was found in the entire colon. Impression: - Sigmoid volvulus. Successful complete decompression achieved. Large amount of air and stool expelled. Tube left in place. - Normal mucosa in the descending colon. - Stool in the entire examined colon. - No specimens collected. Recommendation: - Please leave the rectal decompression tube in place. - Return patient to [facility] for ongoing care. Kristie Rodriguez D.O. Kristie Rodriguez DO 08/12/2016 9:07:26 PM This report has been signed electronically. Note Initiated On: 08/12/2016 8:03 PM
--- NOTE | 2016-08-12 21:41 | Anesthesiology Progress Note ---
Anesthesia Post Op Note Date & Time Aug 12, 2016 at 21:41 Vital Signs Pain Intensity: 0 Vital Signs Past 12 Hours Date Time Temp Pulse Resp B/P Pulse Ox O2 Delivery O2 Flow Rate FiO2 08/12/16 21:30 36.1 64 16 138/73 97 Nasal Cannula 2 08/12/16 21:20 67 16 148/79 98 Nasal Cannula 3 08/12/16 21:11 36.5 67 14 146/84 98 Nasal Cannula 3 08/12/16 20:03 66 16 133/80 92 08/12/16 18:02 66 16 129/77 92 Room Air 08/12/16 16:04 63 16 113/73 97 Nasal Cannula 6.0 08/12/16 15:06 64 16 135/84 92 Nasal Cannula 6.0 08/12/16 14:38 36.4 65 16 138/101 90 Room Air Notes Mental Status: alert / awake / arousable, participated in evaluation Nausea / Vomiting: adequately controlled Pain: adequately controlled Airway Patency, RR, SpO2: stable & adequate BP & HR: stable & adequate Hydration State: stable & adequate Anesthetic Complications: no major complications apparent Pt did very well. Just gave 1 mg midazolam and 10 mg ketamine.
--- NOTE | 2016-08-12 21:42 | SURGICAL CONSULTATION ---
DATE OF CONSULTATION: 08/12/2016 HISTORY OF PRESENT ILLNESS: I have been asked by Dr. Douglass to see this 76-year-old male who lives at [facility]. The history was obtained mostly from the chart. He has been having some abdominal pain and was given a very small amount of fentanyl but that was effective in controlling his discomfort. He, however, then required Narcan to reestablish his mental status as the Narcan sedated him as well. He answers questions with minimal response for each one at this time. He apparently developed abdominal pain beginning yesterday. The pain was persistent and the severity increased today. He denies having had this in the past. He is having bowel movements. He had a formed bowel movement this morning. He denies a history of constipation. He denies requiring laxatives. He has not had diarrhea. He does not think there was any blood with his stool. His abdomen is distended, but he cannot tell me whether it is more distended than usual or whether this is his baseline. The ER chart also indicates some complaints of increased shortness of breath. He has a history of pneumonia recently and has had a chronic cough. He was recently on antibiotics. He denies fevers, chills, nausea or vomiting with this. He has a history of a spinal tumor. He has developed paralysis below the waist. He does have some feeling below the waist, but he cannot move his lower extremities. He is anticoagulated with Coumadin. 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 PAST SURGICAL HISTORY: Inguinal hernia repair, sinus surgery, hip hemiarthroplasty, total knee replacement on the left and a right hip prosthesis. MEDICATIONS AT HOME: Include amitriptyline, Norvasc, Augmentin, aspirin, baclofen, diclofenac, Duloxetine, ferrous sulfate, Lasix, DuoNeb, Glucophage, Zaroxolyn, Bactroban, Nystatin, Protonix, artificial tears, potassium, prednisone, Lyrica, Crestor, sotalol, Coumadin and Desitin. ALLERGIES: LATEX, MACROLIDES AND AZITHROMYCIN. PHYSICAL EXAMINATION: GENERAL: Reveals an obese male who does not appear to be in acute distress. VITAL SIGNS: Blood pressure 129/77, heart rate 66, respirations 16, temperature 36.4, pulse oximetry is 92% on room air. HEENT: Reveals the sclerae to be anicteric. Mucous membranes are moist. NECK: Supple, with no JVD, no cervical or supraclavicular adenopathy. BACK: Has no spinal or CVA tenderness. LUNGS: Clear. HEART: Regular. ABDOMEN: Distended, but there are normoactive bowel sounds. His abdomen is soft. There is very mild tenderness mostly in the lower abdomen to moderate palpation. There is no crepitance. EXTREMITIES: He has dermatitis on the pretibial area bilaterally. There is 1+ edema bilaterally. LABORATORY DATA: WBC 5.73, H\T\H is 11.7 and 36.6, platelet count 232,000. Sodium 133, potassium 4.1, chloride 93, CO2 of 28, BUN 29, creatinine 1.2, glucose 148. Lactic acid 1.9, total bilirubin 0.2, AST 17, ALT 24, alkaline phosphatase 105. Lipase 104. INR is 2.1. ABG is pending. CT scan of the abdomen and pelvis showing a tortuous sigmoid colon with focal twisting suggested. The upstream sigmoid colon is dilated and it raises the question of a sigmoid volvulus, but no evidence of small-bowel obstruction. The small bowel loops are normal in caliber. There is no free air or ascites. ASSESSMENT AND PLAN: This patient has a possible developing sigmoid volvulus. His INR is 2.1. I would agree with GI consultation for decompression. He may need a sigmoid colectomy at some point. We need to discuss with him the possibility of a tertiary care center for the procedure considering his significant comorbid conditions. We will keep him n.p.o. for now. There is no evidence of acute peritonitis requiring immediate surgical intervention. MTDD
[2016-08-12 23:22] LABS: ARTERIAL BLD GAS O2 SATURATION 93.5 % (90-95); ARTERIAL BLOOD GAS BASE EXCESS 5.8 mEq/L (-9-1.8); ARTERIAL BLOOD GAS HCO3 34 mmol/L (19-24); ARTERIAL BLOOD GAS PO2 77 mm/Hg (80-95)
[2016-08-12 23:24] LABS: ALLEN TEST POS (POS); O2 ADMINISTRATION 2 L O2
[2016-08-12 23:34] LABS: CKMB/CK RATIO 5.7 (0-3.0)
[2016-08-12 23:46] LABS: BLOOD UREA NITROGEN 28 mg/dl (7-18); BUN/CREATININE RATIO 23.1 (10-20); CALCIUM 8.3 mg/dl (8.5-10.1); CARBON DIOXIDE 34 mmol/L (21-32); CHLORIDE 94 mmol/L (98-107); GLUCOSE 130 mg/dl (70-99); POTASSIUM 4.2 mmol/L (3.5-5.1); SODIUM 136 mmol/L (136-145)
[2016-08-13] VITALS (18 sets, daily range): BP systolic 127–159; BP diastolic 76–106; PULSE 58–84; TEMP 36.4–37; O2SAT 40–98
[2016-08-13] MEDS: PIPERACILL/TAZOBAC IV 3.375 GM in DEXTROSE 5% 100ML 100 ML IV SCH ×2 (00:01→08:36)
[2016-08-13] MEDS: METHYLPREDNISOLONE IV 40 MG in SYRINGE 0 ML IV SCH ×2 (00:01→23:24)
[2016-08-13] MEDS: NYSTATIN CR 15 GM TUBE EXT SCH ×3 (00:02→20:28)
[2016-08-13] MEDS: BACITRACIN OINT 15 GM TUBE TOP SCH ×3 (00:02→20:28)
[2016-08-13] MEDS: SOTALOL HCL 80 MG TAB PO SCH ×4 (00:03→20:28)
[2016-08-13] MEDS ORDERED: SODIUM CHLORIDE 0.9% 500ML 500 ML IV SCH (00:30)
[2016-08-13 01:00] LABS: ALLEN TEST POS (POS); ARTERIAL BLD GAS O2 SATURATION 94.5 % (90-95); ARTERIAL BLOOD GAS BASE EXCESS 6.5 mEq/L (-9-1.8); ARTERIAL BLOOD GAS HCO3 35 mmol/L (19-24); ARTERIAL BLOOD GAS PO2 79 mm/Hg (80-95); ARTERIAL BLOOD GAS pH 7.32 (7.35-7.45); O2 ADMINISTRATION 30% BIPAP
[2016-08-13] MEDS ORDERED: SODIUM CHLORIDE 0.9% 1000ML 1,000 ML IV SCH (01:30)
[2016-08-13] MEDS: LEVALBUTEROL 1.25MG/0.5ML NEB INH SCH ×4 (02:19→19:13)
[2016-08-13] MEDS: IPRATROPIUM BROMIDE NEB SOLN 0.02% 2.5 ML VIAL INH SCH ×4 (02:19→19:13)
[2016-08-13] MEDS: LEVOFLOXACIN / D5W 750 MG in PREMIXED IN D5W 150 ML IV SCH (02:30)
[2016-08-13 03:32] LABS: CKMB/CK RATIO 5.8 (0-3.0)
[2016-08-13 05:57] LABS: BASO % 0.1 %; BASO ABS # 0.01 K/uL (0-0.2); COMPLETE YES; EOS % 0.1 %; HEMATOCRIT 36.5 % (42-52); LYMPH % 10.6 %; LYMPH ABS # 0.71 K/uL (1.2-3.4); MEAN CELL VOLUME 82.4 fL (80-100); MEAN CORPUSCULAR HGB CONC 31.5 g/dl (32-36); MEAN PLATELET VOLUME 9.9 fL (7.4-10.4); MONO % 2.5 %; NEUT % 85.7 %; PLATELET COUNT 214 K/uL (130-400); RED BLOOD COUNT 4.43 M/uL (4.7-6.1); WHITE BLOOD COUNT 6.69 K/uL (4.8-10.8)
[2016-08-13] MEDS: INSULIN ASPART 100 UNITS/ML 3 ML PEN SC SCH ×4 (06:00→18:16)
[2016-08-13 06:07] LABS: INR 1.8 (0.9-1.1); PROTHROMBIN TIME (PATIENT) 19.8 SECONDS (9.0-12.0)
[2016-08-13 06:29] LABS: BUN/CREATININE RATIO 21.8 (10-20); CALCIUM 8.6 mg/dl (8.5-10.1); CREATININE 1.2 mg/dl (0.60-1.40); POTASSIUM 4.7 mmol/L (3.5-5.1)
--- NOTE | 2016-08-13 08:06 | Surgery Progress Note ---
Surgery Progress Note Date of Service Aug 13, 2016. Subjective More alert today Underwent colonoscopic decompression last night O2 saturations decreased, Now on BIPAP Consider sigmoid colectomy after bowel prep but need risk up relative to respiratory status May need to consider tertiary care center Objective Vital Signs: Date Time Temp Pulse Resp B/P Pulse Ox O2 Delivery O2 Flow Rate FiO2 08/13/16 07:29 36.8 67 17 127/79 95 BiPAP 50 08/13/16 06:49 63 96 50 08/13/16 06:48 63 22 96 BiPAP/CPAP 50 08/13/16 06:12 62 93 50 08/13/16 04:00 98 BiPAP 30 08/13/16 03:30 36.7 73 21 128/96 40 08/13/16 02:21 58 93 30 08/13/16 02:19 59 20 91 BiPAP/CPAP 30 08/13/16 01:00 36.5 71 17 150/89 96 BiPAP 30 08/13/16 00:29 68 94 30 08/13/16 00:00 98 BiPAP 30 08/13/16 00:00 70 16 146/84 95 BiPAP 30 08/12/16 23:59 36.5 08/12/16 23:30 67 16 136/79 96 BiPAP 30 08/12/16 23:03 68 16 146/90 95 Nasal Cannula 2.0 08/12/16 22:45 64 16 141/86 96 Nasal Cannula 2.0 08/12/16 22:30 70 18 141/86 98 Nasal Cannula 2.0 08/12/16 22:25 36.7 69 18 137/88 98 Nasal Cannula 2.0 08/12/16 22:14 36.7 69 18 137/88 98 Nasal Cannula 2.0 08/12/16 21:53 36.5 66 20 148/88 95 Nasal Cannula 2.0 08/12/16 21:30 36.1 64 16 138/73 97 Nasal Cannula 2 08/12/16 21:20 67 16 148/79 98 Nasal Cannula 3 08/12/16 21:11 36.5 67 14 146/84 98 Nasal Cannula 3 08/12/16 20:03 66 16 133/80 92 08/12/16 18:02 66 16 129/77 92 Room Air 08/12/16 16:04 63 16 113/73 97 Nasal Cannula 6.0 08/12/16 15:06 64 16 135/84 92 Nasal Cannula 6.0 08/12/16 14:38 36.4 65 16 138/101 90 Room Air Abdomen: normal bowel sounds, + tenderness (decrease, very mild) Laboratory Results: Results Past 24 Hours Test 08/12/16 14:56 08/12/16 15:20 08/12/16 17:11 08/12/16 17:30 Range/Units White Blood Count 5.73 4.8-10.8 K/uL Red Blood Count 4.47 4.7-6.1 M/uL Hemoglobin 11.7 14.0-18.0 g/dL Hematocrit 36.6 42-52 % Mean Corpuscular Volume 81.9 80-100 fL Mean Corpuscular Hemoglobin 26.2 25-34 pg Mean Corpuscular Hemoglobin Concent 32.0 32-36 g/dl Platelet Count 232 130-400 K/uL Mean Platelet Volume 9.8 7.4-10.4 fL Neutrophils (%) (Auto) 64.4 % Lymphocytes (%) (Auto) 20.4 % Monocytes (%) (Auto) 13.1 % Eosinophils (%) (Auto) 1.0 % Basophils (%) (Auto) 0.2 % Neutrophils # (Auto) 3.69 1.4-6.5 K/uL Lymphocytes # (Auto) 1.17 1.2-3.4 K/uL Monocytes # (Auto) 0.75 0.11-0.59 K/uL Eosinophils # (Auto) 0.06 0-0.5 K/uL Basophils # (Auto) 0.01 0-0.2 K/uL RDW Standard Deviation 53.8 36.4-46.3 fL RDW Coefficient of Variation 17.9 11.5-14.5 % Immature Granulocyte % (Auto) 0.9 % Immature Granulocyte # (Auto) 0.05 0.00-0.02 K/uL Sodium Level 133 136-145 mmol/L Potassium Level 4.1 3.5-5.1 mmol/L Chloride Level 93 98-107 mmol/L Carbon Dioxide Level 28 21-32 mmol/L Anion Gap 12.0 3-11 mmol/L Blood Urea Nitrogen 29 7-18 mg/dl Creatinine 1.20 0.60-1.40 mg/dl Est Creatinine Clear Calc Drug Dose 62.3 ml/min Estimated GFR () 68.6 Estimated GFR (Non- 59.2 BUN/Creatinine Ratio 24.5 10-20 Random Glucose 148 70-99 mg/dl Lactic Acid Level 1.9 0.4-2.0 mmol/L Calcium Level 8.5 8.5-10.1 mg/dl Total Bilirubin 0.2 0.2-1 mg/dl Aspartate Amino Transf (AST/SGOT) 17 15-37 U/L Alanine Aminotransferase (ALT/SGPT) 24 12-78 U/L Alkaline Phosphatase 105 45-117 U/L Troponin I < 0.015 0-0.045 ng/ml Pro-B-Type Natriuretic Peptide 1145 0-900 pg/ml Total Protein 8.4 6.4-8.2 gm/dl Albumin 3.0 3.4-5.0 gm/dl Globulin 5.4 2.5-4.0 gm/dl Albumin/Globulin Ratio 0.6 0.9-2 Lipase 104 73-393 U/L Urine Color YELLOW Urine Appearance SL CLOUDY CLEAR Urine pH 5.5 4.5-7.5 Urine Specific [place] 1.015 1.000-1.030 Urine Protein NEG NEG Urine Glucose (UA) NEG NEG Urine Ketones NEG NEG Urine Occult Blood 3+ NEG Urine Nitrite POS NEG Urine Bilirubin NEG NEG Urine Urobilinogen NEG NEG Urine Leukocyte Esterase MODERATE NEG Urine RBC >30 0-4 /hpf Urine WBC 10-30 0-5 /hpf Urine Epithelial Cells 5-10 0-5 /lpf Urine Bacteria NEG NEG Urine Hyaline Casts 1-5 0-5 /lpf Bedside Prothrombin Time INR 2.1 0.9-1.1 Prothrombin Time 19.6 9.0-12.0 SECONDS Prothromb Time International Ratio 1.8 0.9-1.1 Activated Partial Thromboplast Time 40.1 21.0-31.0 SECONDS Partial Thromboplastin Ratio 1.5 Test 08/12/16 23:02 08/13/16 00:07 08/13/16 00:45 08/13/16 03:05 Range/Units Arterial Blood pH 7.30 7.32 7.35-7.45 Arterial Blood Partial Pressure CO2 70 68 35-46 mmHg Arterial Blood Partial Pressure O2 77 79 80-95 mm/Hg Arterial Blood HCO3 34 35 19-24 mmol/L Arterial Blood Oxygen Saturation 93.5 94.5 90-95 % Arterial Blood Base Excess 5.8 6.5 -9-1.8 mEq/L Arterial Blood Gas Delivery 2 L O2 30% BIPAP Junior Test POS POS POS Sodium Level 136 136-145 mmol/L Potassium Level 4.2 3.5-5.1 mmol/L Chloride Level 94 98-107 mmol/L Carbon Dioxide Level 34 21-32 mmol/L Anion Gap 8.0 3-11 mmol/L Blood Urea Nitrogen 28 7-18 mg/dl Creatinine 1.20 0.60-1.40 mg/dl Est Creatinine Clear Calc Drug Dose 62.3 ml/min Estimated GFR () 68.6 Estimated GFR (Non- 59.2 BUN/Creatinine Ratio 23.1 10-20 Random Glucose 130 70-99 mg/dl Calcium Level 8.3 8.5-10.1 mg/dl Total Creatine Kinase 37 33 39-308 U/L Creatine Kinase MB 2.1 1.9 0.5-3.6 ng/ml Creatine Kinase MB Ratio 5.7 5.8 0-3.0 Troponin I < 0.015 < 0.015 0-0.045 ng/ml Bedside Glucose 122 70-99 mg/dl Test 08/13/16 05:05 08/13/16 06:01 Range/Units White Blood Count 6.69 4.8-10.8 K/uL Red Blood Count 4.43 4.7-6.1 M/uL Hemoglobin 11.5 14.0-18.0 g/dL Hematocrit 36.5 42-52 % Mean Corpuscular Volume 82.4 80-100 fL Mean Corpuscular Hemoglobin 26.0 25-34 pg Mean Corpuscular Hemoglobin Concent 31.5 32-36 g/dl Platelet Count 214 130-400 K/uL Mean Platelet Volume 9.9 7.4-10.4 fL Neutrophils (%) (Auto) 85.7 % Lymphocytes (%) (Auto) 10.6 % Monocytes (%) (Auto) 2.5 % Eosinophils (%) (Auto) 0.1 % Basophils (%) (Auto) 0.1 % Neutrophils # (Auto) 5.72 1.4-6.5 K/uL Lymphocytes # (Auto) 0.71 1.2-3.4 K/uL Monocytes # (Auto) 0.17 0.11-0.59 K/uL Eosinophils # (Auto) 0.01 0-0.5 K/uL Basophils # (Auto) 0.01 0-0.2 K/uL RDW Standard Deviation 54.0 36.4-46.3 fL RDW Coefficient of Variation 18.0 11.5-14.5 % Immature Granulocyte % (Auto) 1.0 % Immature Granulocyte # (Auto) 0.07 0.00-0.02 K/uL Prothrombin Time 19.8 9.0-12.0 SECONDS Prothromb Time International Ratio 1.8 0.9-1.1 Sodium Level 133 136-145 mmol/L Potassium Level 4.7 3.5-5.1 mmol/L Chloride Level 92 98-107 mmol/L Carbon Dioxide Level 32 21-32 mmol/L Anion Gap 9.0 3-11 mmol/L Blood Urea Nitrogen 26 7-18 mg/dl Creatinine 1.20 0.60-1.40 mg/dl Est Creatinine Clear Calc Drug Dose 62.1 ml/min Estimated GFR () 68.6 Estimated GFR (Non- 59.2 BUN/Creatinine Ratio 21.8 10-20 Random Glucose 158 70-99 mg/dl Calcium Level 8.6 8.5-10.1 mg/dl Bedside Glucose 171 70-99 mg/dl Microbiology Results 08/12/16 Blood Culture, Received Pending 08/12/16 Blood Culture, Received Pending 08/13/16 Urine Culture, Received Pending 08/12/16 Urine Culture, Received Pending Assessment & Plan Sigmoid volvulus decompressed Consider sigmoid colectomy after bowel prep but need risk up relative to respiratory status May need to consider [facility] care [facility]
[2016-08-13] MEDS: DICLOFENAC SOD 1% GEL 100 GM TUBE EXT SCH ×4 (08:37→20:28)
--- NOTE | 2016-08-13 08:44 | Clinical Documentation Query ---
CLINICAL DOCUMENTATION QUERY 76 year old male who presents with sigmoid volvulus. He underwent decompression and has since had respiratory difficulties. In your clinical opinion is this patient being managed for: ( ) Acute hypercapnic respiratory failure treated with O2 via BiPAP. ( ) Other explanation of clinical findings (Please Explain) ( ) Unable to determine (Please Define) ( ) Need to Discuss ( ) Not Agree The medical record reflects the following clinical findings, treatment, and risk factors. Clinical Indicators: Sx consult stating, "O2 saturations decreased, Now on BIPAP." ABG reveal hypercapnia and respiratory acidosis (ABG 7.30/70/77/34) Treatment: O2 via BiPAP, IV Solumedrol, Risk Factors: Age, CHF, Sedation from procedure, and Abdominal pain Please clarify and document your clinical opinion in the progress notes and discharge summary. Terms such as "probable", "suspected", "likely", "questionable", "possible", or "still to be ruled out" are acceptable. IF IN AGREEMENT, YOU MUST DOCUMENT ABOVE DIAGNOSTIC STATEMENT IN DAILY PROGRESS NOTES AND DISCHARGE SUMMARY. This document is not part of the patient's record. Thank You, Joni Wilson, RN [phone]
--- NOTE | 2016-08-13 09:47 | Pharmacy Progress Note ---
Glycemic Control Intl Consult Date of Service Aug 13, 2016. Scope Glycemic Pharmacist consulted by Dr Turner on 08/12/16 for glycemic control and to write orders per [facility] inpatient glycemic control protocol Objective Weight (Kilograms): 111.100 Accuchecks BSG (last 24hrs): Test 08/12/16 14:56 08/12/16 23:02 08/13/16 00:07 08/13/16 05:05 Random Glucose 148 mg/dl (70-99) 130 mg/dl (70-99) 158 mg/dl (70-99) Bedside Glucose 122 mg/dl (70-99) Test 08/13/16 06:01 Bedside Glucose 171 mg/dl (70-99) Laboratory Data (last 24hrs) Test 08/12/16 14:56 08/12/16 23:02 08/13/16 05:05 Anion Gap 12.0 mmol/L 8.0 mmol/L 9.0 mmol/L BUN/Creatinine Ratio 24.5 23.1 21.8 Blood Urea Nitrogen 29 mg/dl 28 mg/dl 26 mg/dl Creatinine 1.20 mg/dl 1.20 mg/dl 1.20 mg/dl Potassium Level 4.1 mmol/L 4.2 mmol/L 4.7 mmol/L Sodium Level 133 mmol/L 136 mmol/L 133 mmol/L White Blood Count 5.73 K/uL 6.69 K/uL Red Blood Count 4.47 M/uL 4.43 M/uL Hemoglobin 11.7 g/dL 11.5 g/dL Hematocrit 36.6 % 36.5 % Mean Corpuscular Volume 81.9 fL 82.4 fL Mean Corpuscular Hemoglobin 26.2 pg 26.0 pg Mean Corpuscular Hemoglobin Concent 32.0 g/dl 31.5 g/dl Platelet Count 232 K/uL 214 K/uL Mean Platelet Volume 9.8 fL 9.9 fL Neutrophils (%) (Auto) 64.4 % 85.7 % Lymphocytes (%) (Auto) 20.4 % 10.6 % Monocytes (%) (Auto) 13.1 % 2.5 % Eosinophils (%) (Auto) 1.0 % 0.1 % Basophils (%) (Auto) 0.2 % 0.1 % Neutrophils # (Auto) 3.69 K/uL 5.72 K/uL Lymphocytes # (Auto) 1.17 K/uL 0.71 K/uL Monocytes # (Auto) 0.75 K/uL 0.17 K/uL Eosinophils # (Auto) 0.06 K/uL 0.01 K/uL Basophils # (Auto) 0.01 K/uL 0.01 K/uL Recent Pertinent Medications Outpatient Anti-diabetic Regimen: * Metformin 1000 mg PO BIDM * A1c = 6.8 % 06/18/16 The patient is currently receiving: * Correctional Insulin: Novolog Correction per scale ACHS Goal Range: Low 140 mg/dL - High 180 mg/dL Correction Factor: 30 mg/dL/unit * Prandial insulin: Per carb ratio of 1 unit per 10 grams CHO consumed * Oral Agents: currently on hold Risk Factors for Insulin Resistance: * Steroids * Infection * IVF * Recent Surgery * Diet Assessment & Plan ASSESSMENT: * 76 yo T2D M known to the glycemic service from previous admissions, admitted with abdominal pain * A1c 6.8% from 06/2016 indicative of good glycemic control * BSGs were within goal range over night and a weight-based Novolog scale was started * Patient remains NPO- underwent colonoscopic decompression overnight * He typically does not require much insulin to keep BSGs within goal range; however, he is on solumedrol 40 mg IV daily which will change things--> tighten Novolog slightly * ADA & AACE recommend a goal blood sugar range 140-180 mg/dl for the majority of critically ill & non-critically ill patients. However, more stringent targets may be selected in individual cases. PLAN FOR INPATIENT GLYCEMIC CONTROL: * Hold outpatient oral diabetes medications * Correctional Insulin with NOVOLOG per scale ACHS or Q6hrs while NPO * Goal Range: Low 140 mg/dL - High 180 mg/dL * Correction Factor: 25 mg/dL/unit * Nutritional / Prandial insulin per carb ratio of 1 unit per 9 grams CHO consumed * A1c current-added to D/C instructions * Please note that the plan above was derived based on current level of insulin resistance and hospital stress. These recommendations are appropriate for inpatient admission only. Plan of care upon discharge will need to be reassessed to avoid potential outpatient hypo/hyperglycemia. Thank you.
--- NOTE | 2016-08-13 11:42 | Gastroenterology Progress Note ---
Progress Note Date of Service: Aug 13, 2016 Subjective Pt evaluation today including: conversation w/ family, physical exam, chart review, lab review, review of studies, review of inpatient medication list Mr. Gould is 76 year old male with hx of T5 paraplegia, CAD, PAF on chronic anticoagulation, neurogenic bladder, DM, and HTN. He presented to the ER yesterday, brought from [place]. Imaging was suggestive of sigmoid volvulus and he underwent colonoscopic decompression with result of a large amt of fluid and air being expelled. Today, he is hemodynamically stable, resting quietly in bed and denies pain. Rectal tube remains in place. On exam he is non tender, non distended. Review of Systems Constitutional: No fever Respiratory: No cough Cardiac: No chest pain Abdomen: + see HPI, No GI bleeding, No constipation, No diarrhea, No nausea, No pain, No vomiting Neuro: No memory loss Psych: No depression symptoms Heme: No abnormal bleeding/bruising Medications Current Inpatient Medications Medications (Trade) Dose Ordered Sig/Betzy Route Start Time Stop Time Status Last Admin Dose Admin Ioversol 100 ml 100 ml UD PRN IV 08/12/16 15:00 08/16/16 14:59 Methylprednisolone Sodium Succinate/ Syringe (Solu-Medrol IV/ Syringe) 0.64 ml @ 1.5 mls/min Q24H IV 08/13/16 00:00 09/12/16 00:00 08/13/16 00:01 1.5 MLS/MIN Miscellaneous Information (Consult Glycemic Management Pharmacy) 1 ea UD PRN N/A 08/12/16 19:30 09/11/16 19:29 Ondansetron HCl (Zofran Inj) 4 mg Q6H PRN IV 08/12/16 18:30 09/11/16 18:29 Ipratropium [place] (Atrovent 0.02% 0.5MG/2.5ML Neb) 0.5 mg Q6R INH 08/12/16 21:00 09/11/16 20:59 08/13/16 06:47 0.5 MG Levalbuterol (Xopenex 1.25MG/ 0.5ML Neb) 1.25 mg Q6R INH 08/12/16 21:00 09/11/16 20:59 08/13/16 06:47 1.25 MG Piperacillin Sod/ Tazobactam Sod (Consult) 1 ea UD PRN N/A 08/12/16 19:30 09/11/16 19:29 Levofloxacin (Consult) 1 ea UD PRN N/A 08/12/16 19:30 09/11/16 19:29 Insulin Aspart SLIDING SCALE G... Q6 SC 08/13/16 00:00 09/12/16 00:00 Levofloxacin/Prmx (Levaquin / D5W/ Premixed D5W) 150 ml @ 100 mls/hr Q24H IV 08/13/16 02:00 08/20/16 01:59 08/13/16 02:30 100 MLS/HR Diclofenac Sodium (Voltaren 1% Top Gel) 1 appln TID EXT 08/12/16 21:00 09/11/16 20:59 08/13/16 08:37 1 APPLN Bacitracin (Bacitracin Oint) 1 appln BID TOP 08/12/16 21:00 09/11/16 20:59 08/13/16 08:38 1 APPLN Nystatin (Mycostatin Crm) 1 appln BID EXT 08/12/16 21:00 09/11/16 20:59 08/13/16 08:36 1 APPLN Sotalol HCl 80 mg 80 mg BID PO 08/12/16 21:00 09/11/16 20:59 08/13/16 08:38 80 MG Piperacillin Sod/ Tazobactam Sod/ Dextrose (Zosyn Iv/D5 100ml) 120 ml @ 30 mls/hr Q8H IV 08/13/16 16:00 08/20/16 00:00 Objective Vital Signs Date Time Temp Pulse Resp B/P Pulse Ox O2 Delivery O2 Flow Rate FiO2 08/13/16 11:09 36.4 64 14 135/81 96 BiPAP 50 08/13/16 10:15 BiPAP 50 08/13/16 07:29 36.8 67 17 127/79 95 BiPAP 50 08/13/16 06:49 63 96 50 08/13/16 06:48 63 22 96 BiPAP/CPAP 50 08/13/16 06:12 62 93 50 08/13/16 04:00 98 BiPAP 30 08/13/16 03:30 36.7 73 21 128/96 40 08/13/16 02:21 58 93 30 08/13/16 02:19 59 20 91 BiPAP/CPAP 30 08/13/16 01:00 36.5 71 17 150/89 96 BiPAP 30 08/13/16 00:29 68 94 30 08/13/16 00:00 98 BiPAP 30 08/13/16 00:00 70 16 146/84 95 BiPAP 30 08/12/16 23:59 36.5 08/12/16 23:30 67 16 136/79 96 BiPAP 30 08/12/16 23:03 68 16 146/90 95 Nasal Cannula 2.0 08/12/16 22:45 64 16 141/86 96 Nasal Cannula 2.0 08/12/16 22:30 70 18 141/86 98 Nasal Cannula 2.0 08/12/16 22:25 36.7 69 18 137/88 98 Nasal Cannula 2.0 08/12/16 22:14 36.7 69 18 137/88 98 Nasal Cannula 2.0 08/12/16 21:53 36.5 66 20 148/88 95 Nasal Cannula 2.0 08/12/16 21:30 36.1 64 16 138/73 97 Nasal Cannula 2 08/12/16 21:20 67 16 148/79 98 Nasal Cannula 3 08/12/16 21:11 36.5 67 14 146/84 98 Nasal Cannula 3 08/12/16 20:03 66 16 133/80 92 08/12/16 18:02 66 16 129/77 92 Room Air 08/12/16 16:04 63 16 113/73 97 Nasal Cannula 6.0 08/12/16 15:06 64 16 135/84 92 Nasal Cannula 6.0 08/12/16 14:38 36.4 65 16 138/101 90 Room Air Physical Exam General Appearance: no apparent distress Neck: no JVD Respiratory/Chest: + decreased breath sounds Cardiovascular: regular rate, rhythm, no JVD, no murmur Abdomen: non tender, soft Extremities: non-tender Neurologic/Psych: alert, normal mood/affect, oriented x 3 Skin: no jaundice Laboratory Results Last 24 Hours Test 08/12/16 14:56 08/12/16 15:20 08/12/16 17:11 08/12/16 17:30 White Blood Count 5.73 K/uL Red Blood Count 4.47 M/uL Hemoglobin 11.7 g/dL Hematocrit 36.6 % Mean Corpuscular Volume 81.9 fL Mean Corpuscular Hemoglobin 26.2 pg Mean Corpuscular Hemoglobin Concent 32.0 g/dl Platelet Count 232 K/uL Mean Platelet Volume 9.8 fL Neutrophils (%) (Auto) 64.4 % Lymphocytes (%) (Auto) 20.4 % Monocytes (%) (Auto) 13.1 % Eosinophils (%) (Auto) 1.0 % Basophils (%) (Auto) 0.2 % Neutrophils # (Auto) 3.69 K/uL Lymphocytes # (Auto) 1.17 K/uL Monocytes # (Auto) 0.75 K/uL Eosinophils # (Auto) 0.06 K/uL Basophils # (Auto) 0.01 K/uL RDW Standard Deviation 53.8 fL RDW Coefficient of Variation 17.9 % Immature Granulocyte % (Auto) 0.9 % Immature Granulocyte # (Auto) 0.05 K/uL Sodium Level 133 mmol/L Potassium Level 4.1 mmol/L Chloride Level 93 mmol/L Carbon Dioxide Level 28 mmol/L Anion Gap 12.0 mmol/L Blood Urea Nitrogen 29 mg/dl Creatinine 1.20 mg/dl Est Creatinine Clear Calc Drug Dose 62.3 ml/min Estimated GFR () 68.6 Estimated GFR (Non- 59.2 BUN/Creatinine Ratio 24.5 Random Glucose 148 mg/dl Lactic Acid Level 1.9 mmol/L Calcium Level 8.5 mg/dl Total Bilirubin 0.2 mg/dl Aspartate Amino Transf (AST/SGOT) 17 U/L Alanine Aminotransferase (ALT/SGPT) 24 U/L Alkaline Phosphatase 105 U/L Troponin I < 0.015 ng/ml Pro-B-Type Natriuretic Peptide 1145 pg/ml Total Protein 8.4 gm/dl Albumin 3.0 gm/dl Globulin 5.4 gm/dl Albumin/Globulin Ratio 0.6 Lipase 104 U/L Urine Color YELLOW Urine Appearance SL CLOUDY Urine pH 5.5 Urine Specific [place] 1.015 Urine Protein NEG Urine Glucose (UA) NEG Urine Ketones NEG Urine Occult Blood 3+ Urine Nitrite POS Urine Bilirubin NEG Urine Urobilinogen NEG Urine Leukocyte Esterase MODERATE Urine RBC >30 /hpf Urine WBC 10-30 /hpf Urine Epithelial Cells 5-10 /lpf Urine Bacteria NEG Urine Hyaline Casts 1-5 /lpf Bedside Prothrombin Time INR 2.1 Prothrombin Time 19.6 SECONDS Prothromb Time International Ratio 1.8 Activated Partial Thromboplast Time 40.1 SECONDS Partial Thromboplastin Ratio 1.5 Test 08/12/16 23:02 08/13/16 00:07 08/13/16 00:45 08/13/16 03:05 Arterial Blood pH 7.30 7.32 Arterial Blood Partial Pressure CO2 70 mmHg 68 mmHg Arterial Blood Partial Pressure O2 77 mm/Hg 79 mm/Hg Arterial Blood HCO3 34 mmol/L 35 mmol/L Arterial Blood Oxygen Saturation 93.5 % 94.5 % Arterial Blood Base Excess 5.8 mEq/L 6.5 mEq/L Arterial Blood Gas Delivery 2 L O2 30% BIPAP Junior Test POS POS Sodium Level 136 mmol/L Potassium Level 4.2 mmol/L Chloride Level 94 mmol/L Carbon Dioxide Level 34 mmol/L Anion Gap 8.0 mmol/L Blood Urea Nitrogen 28 mg/dl Creatinine 1.20 mg/dl Est Creatinine Clear Calc Drug Dose 62.3 ml/min Estimated GFR () 68.6 Estimated GFR (Non- 59.2 BUN/Creatinine Ratio 23.1 Random Glucose 130 mg/dl Calcium Level 8.3 mg/dl Total Creatine Kinase 37 U/L 33 U/L Creatine Kinase MB 2.1 ng/ml 1.9 ng/ml Creatine Kinase MB Ratio 5.7 5.8 Troponin I < 0.015 ng/ml < 0.015 ng/ml Bedside Glucose 122 mg/dl Test 08/13/16 05:05 08/13/16 06:01 08/13/16 10:54 White Blood Count 6.69 K/uL Red Blood Count 4.43 M/uL Hemoglobin 11.5 g/dL Hematocrit 36.5 % Mean Corpuscular Volume 82.4 fL Mean Corpuscular Hemoglobin 26.0 pg Mean Corpuscular Hemoglobin Concent 31.5 g/dl Platelet Count 214 K/uL Mean Platelet Volume 9.9 fL Neutrophils (%) (Auto) 85.7 % Lymphocytes (%) (Auto) 10.6 % Monocytes (%) (Auto) 2.5 % Eosinophils (%) (Auto) 0.1 % Basophils (%) (Auto) 0.1 % Neutrophils # (Auto) 5.72 K/uL Lymphocytes # (Auto) 0.71 K/uL Monocytes # (Auto) 0.17 K/uL Eosinophils # (Auto) 0.01 K/uL Basophils # (Auto) 0.01 K/uL RDW Standard Deviation 54.0 fL RDW Coefficient of Variation 18.0 % Immature Granulocyte % (Auto) 1.0 % Immature Granulocyte # (Auto) 0.07 K/uL Prothrombin Time 19.8 SECONDS Prothromb Time International Ratio 1.8 Sodium Level 133 mmol/L Potassium Level 4.7 mmol/L Chloride Level 92 mmol/L Carbon Dioxide Level 32 mmol/L Anion Gap 9.0 mmol/L Blood Urea Nitrogen 26 mg/dl Creatinine 1.20 mg/dl Est Creatinine Clear Calc Drug Dose 62.1 ml/min Estimated GFR () 68.6 Estimated GFR (Non- 59.2 BUN/Creatinine Ratio 21.8 Random Glucose 158 mg/dl Calcium Level 8.6 mg/dl Bedside Glucose 171 mg/dl 187 mg/dl Assessment and Plan Mr. Gould is a 76 yr old paraplegic male who is one day post colonoscopic decompression of a sigmoid volvulus. He is doing well, though is high risk for recurrence. Plan: 1. OK from a GI standpoint to start a clear liquid diet, but will defer to surgery and primary services. 2. Daily KUB to f/o recurrence. 3. Avoid medications that slow GI motility: narcotics, benzos, anticholinergics. 4. Keep rectal tube in as long as possible. 5. Further management by surgery. I have seen , examined and agree with the plan as outlined by HOPE James as above. -exam reveals soft abd -Not a great surgical candidate, ostomy given paralysis and decubitus ulcers may be a better termite exterminator option
[2016-08-13] MEDS ORDERED: PERFLUTREN LIPID MICROSPHERE (DEFINITY) IV ONE (11:46)
--- NOTE | 2016-08-13 13:50 | ECHOCARDIOGRAM REPORT ---
*NOTICE TO RECEIVING LIBERTARIAN AGENCY This information is strictly Confidential and protected under [place] law. [place] law prohibits you from making any further disclosure of this information unless further disclosure is expressly permitted by the written consent of the person to whom it pertains or is authorized by law. A general authorization for the release of medical or other information is not sufficient for this purpose. Hospital accepts no responsibility if the information is made available to any other person, INCLUDING THE PATIENT. Interpretation Summary * Name: CARLY BELLA Study Date: 08/13/2016 11:18 AM BP: 128/96 mmHg * Patient Location: .2E\S\E201\S\1 HR: 62 * : 1940 (M/d/yyyy) Gender: Male Height: 65 in * Age: 76 yrs Ethnicity: CA Weight: 246 lb * Ordering Physician: Jethro Turner * Performed By: Esther Borja RDCS * * Reason For Study: T wave inversion anterior leads * BSA: 2.2 m2 * -- Conclusions -- * The left ventricle is normal in size. * There is moderate concentric left ventricular hypertrophy. * Left ventricular systolic function is normal. * No regional wall motion abnormalities noted. * Ejection Fraction = 60-65%. * Aortic valve sclerosis moderate, without significant aortic valvular stenosis. * There is no pericardial effusion. * The study was technically difficult. Procedure Details * A complete two-dimensional transthoracic echocardiogram was performed (2D, M-mode, Doppler and color flow Doppler). * A contrast injection of Definity was performed to improve assessment of LV function. * Contrast was injected into an intravenous site in the right arm. * One vial of Definity ultrasound contrast was diluted in normal saline to a total volume of 10 ml. A total of '4' ml of solution was administered during imaging. * Lot # [id number] of Definity utilized for procedure. * Expiration date JUN 28. * The attending nurse who injected the contrast agent was Von Aguila RN. * The study was technically limited. * The study was technically difficult. Left Ventricle * The left ventricle is normal in size. * There is moderate concentric left ventricular hypertrophy. * Ejection Fraction = 60-65%. * Left ventricular systolic function is normal. * No regional wall motion abnormalities noted. Right Ventricle * The right ventricle is normal in size and function. Atria * The left atrial size is normal. * Right atrial size is normal. * No ASD detected; PFO is not assessed. Mitral Valve * The mitral valve is normal. * There is no mitral valve stenosis. * There is trace mitral regurgitation. Tricuspid Valve * The tricuspid valve is normal. * There is no tricuspid stenosis. * There is trace tricuspid regurgitation. Aortic Valve * Aortic valve sclerosis moderate, without significant aortic valvular stenosis. * The aortic valve is trileaflet. * No hemodynamically significant valvular aortic stenosis. * No aortic regurgitation is present. Pulmonic Valve * The pulmonic valve is not well visualized. Great Vessels * The aortic root is normal size. Pericardium/Pleural * There is no pericardial effusion. Great Vessels * Normal inferior vena cava diameter and respiratory variation suggests normal central venous pressure. MMode 2D Measurements and Calculations IVSd 1.3 cm LVIDd 4.5 cm LVIDs 3.1 cm LVPWd 0.98 cm IVS/LVPW 1.3 FS 31.1 % EDV(Teich) 94.7 ml ESV(Teich) 38.8 ml EF(Teich) 59.0 % EDV(cubed) 94.0 ml ESV(cubed) 30.7 ml EF(cubed) 67.4 % LV mass(C)d 188.1 grams LV mass(C)dI 87.1 grams/m\S\2 CO(Teich) 3.6 l/min CI(Teich) 1.7 l/min/m\S\2 SV(Teich) 55.9 ml SI(Teich) 25.9 ml/m\S\2 CO(cubed) 4.1 l/min CI(cubed) 1.9 l/min/m\S\2 SV(cubed) 63.3 ml SI(cubed) 29.3 ml/m\S\2 Ao root diam 3.5 cm Ao root area 9.7 cm\S\2 ACS 2.0 cm asc Aorta Diam 3.0 cm LVAd ap4 30.5 cm\S\2 LVLd ap4 8.3 cm EDV(MOD-sp4) 91.0 ml LVAs ap4 15.8 cm\S\2 LVLs ap4 6.1 cm ESV(MOD-sp4) 35.0 ml EF(MOD-sp4) 61.5 % LVAd ap2 21.2 cm\S\2 LVLd ap2 7.0 cm EDV(MOD-sp2) 54.0 ml LVAs ap2 12.1 cm\S\2 LVLs ap2 5.7 cm ESV(MOD-sp2) 21.0 ml EF(MOD-sp2) 61.1 % CO(MOD-sp4) 3.6 l/min CI(MOD-sp4) 1.7 l/min/m\S\2 SV(MOD-sp4) 56.0 ml SI(MOD-sp4) 25.9 ml/m\S\2 CO(MOD-sp2) 2.1 l/min CI(MOD-sp2) 0.99 l/min/m\S\2 SV(MOD-sp2) 33.0 ml SI(MOD-sp2) 15.3 ml/m\S\2 Doppler Measurements and Calculations MV E max sabrina 63.7 cm/sec MV A max sabrina 65.6 cm/sec MV E/A 0.97 MV dec time 0.23 sec Ao V2 max 129.1 cm/sec Ao max PG 6.7 mmHg Ao max PG (full) 0.72 mmHg LV V1 max PG 5.9 mmHg LV V1 max 121.9 cm/sec PA V2 max 95.6 cm/sec PA max PG 3.7 mmHg PA acc slope 590.2 cm/sec\S\2 PA acc time 0.13 sec TR max sabrina 103.8 cm/sec PA pr(Accel) 18.8 mmHg
--- NOTE | 2016-08-13 16:49 | Progress Note ---
Subjective Date of Service: Aug 13, 2016. Subjective Pt evaluation today including: conversation w/ patient, physical exam, lab review, review of studies, review of inpatient medication list Saw/examined the patient in room 201 +lethargic states he's doing fine, no abdominal pain very tired, and that is the only complaint today difficult to obtain ROS due to patient's mental status/lethargy Problem List Medical Problems: (1) Altered mental status Status: Acute (2) Altered mental status Status: Acute (3) Altered mental status Status: Acute (4) Diffuse abdominal pain Status: Acute (5) Dislodged Cantrell catheter Status: Acute (6) Fever Status: Acute (7) Hematuria Status: Acute (8) Hyperglycemia Status: Acute (9) Hypomagnesemia Status: Acute (10) Hypoxia Status: Acute (11) Hypoxia Status: Acute (12) Lactic acid acidosis Status: Acute (13) Left lower lobe pneumonia Status: Acute (14) Leukocytosis Status: Acute (15) Pneumonia Status: Acute (16) Renal insufficiency Status: Acute (17) Sigmoid volvulus Status: Acute (18) UTI (urinary tract infection) Status: Acute (19) UTI (urinary tract infection) Status: Acute (20) UTI (urinary tract infection) Status: Acute (21) UTI (urinary tract infection) Status: Acute Review of Systems Constitutional: + fatigue, + weakness Respiratory: No shortness of breath Cardiac: No chest pain Abdomen: No diarrhea, No nausea, No pain, No vomiting Medications Current Inpatient Medications Medications (Trade) Dose Ordered Sig/Betzy Route Start Time Stop Time Status Last Admin Dose Admin Ioversol 100 ml 100 ml UD PRN IV 08/12/16 15:00 08/16/16 14:59 Methylprednisolone Sodium Succinate/ Syringe (Solu-Medrol IV/ Syringe) 0.64 ml @ 1.5 mls/min Q24H IV 08/13/16 00:00 09/12/16 00:00 08/13/16 00:01 1.5 MLS/MIN Miscellaneous Information (Consult Glycemic Management Pharmacy) 1 ea UD PRN N/A 08/12/16 19:30 09/11/16 19:29 Ondansetron HCl (Zofran Inj) 4 mg Q6H PRN IV 08/12/16 18:30 09/11/16 18:29 Ipratropium [place] (Atrovent 0.02% 0.5MG/2.5ML Neb) 0.5 mg Q6R INH 08/12/16 21:00 09/11/16 20:59 08/13/16 14:19 0.5 MG Levalbuterol (Xopenex 1.25MG/ 0.5ML Neb) 1.25 mg Q6R INH 08/12/16 21:00 09/11/16 20:59 08/13/16 14:19 1.25 MG Piperacillin Sod/ Tazobactam Sod (Consult) 1 ea UD PRN N/A 08/12/16 19:30 09/11/16 19:29 Levofloxacin (Consult) 1 ea UD PRN N/A 08/12/16 19:30 09/11/16 19:29 Insulin Aspart SLIDING SCALE G... Q6 SC 08/13/16 00:00 09/12/16 00:00 08/13/16 12:24 1 UNITS Levofloxacin/Prmx (Levaquin / D5W/ Premixed D5W) 150 ml @ 100 mls/hr Q24H IV 08/13/16 02:00 08/20/16 01:59 08/13/16 02:30 100 MLS/HR Diclofenac Sodium (Voltaren 1% Top Gel) 1 appln TID EXT 08/12/16 21:00 09/11/16 20:59 08/13/16 14:00 1 APPLN Bacitracin (Bacitracin Oint) 1 appln BID TOP 08/12/16 21:00 09/11/16 20:59 08/13/16 08:38 1 APPLN Nystatin (Mycostatin Crm) 1 appln BID EXT 08/12/16 21:00 09/11/16 20:59 08/13/16 08:36 1 APPLN Sotalol HCl 80 mg 80 mg BID PO 08/12/16 21:00 09/11/16 20:59 08/13/16 08:38 80 MG Piperacillin Sod/ Tazobactam Sod/ Dextrose (Zosyn Iv/D5 100ml) 120 ml @ 30 mls/hr Q8H IV 08/13/16 16:00 08/20/16 00:00 Objective Vital Signs Date Time Temp Pulse Resp B/P Pulse Ox O2 Delivery O2 Flow Rate FiO2 08/13/16 14:58 36.6 63 15 159/106 95 Nasal Cannula 4.0 08/13/16 14:19 76 18 96 Nasal Cannula 4.0 08/13/16 12:00 BiPAP 50 08/13/16 11:09 36.4 64 14 135/81 96 BiPAP 50 08/13/16 10:15 BiPAP 50 08/13/16 07:29 36.8 67 17 127/79 95 BiPAP 50 08/13/16 06:49 63 96 50 08/13/16 06:48 63 22 96 BiPAP/CPAP 50 08/13/16 06:12 62 93 50 08/13/16 04:00 98 BiPAP 30 08/13/16 03:30 36.7 73 21 128/96 40 08/13/16 02:21 58 93 30 08/13/16 02:19 59 20 91 BiPAP/CPAP 30 08/13/16 01:00 36.5 71 17 150/89 96 BiPAP 30 08/13/16 00:29 68 94 30 08/13/16 00:00 98 BiPAP 30 08/13/16 00:00 70 16 146/84 95 BiPAP 30 08/12/16 23:59 36.5 08/12/16 23:30 67 16 136/79 96 BiPAP 30 08/12/16 23:03 68 16 146/90 95 Nasal Cannula 2.0 08/12/16 22:45 64 16 141/86 96 Nasal Cannula 2.0 08/12/16 22:30 70 18 141/86 98 Nasal Cannula 2.0 08/12/16 22:25 36.7 69 18 137/88 98 Nasal Cannula 2.0 08/12/16 22:14 36.7 69 18 137/88 98 Nasal Cannula 2.0 08/12/16 21:53 36.5 66 20 148/88 95 Nasal Cannula 2.0 08/12/16 21:30 36.1 64 16 138/73 97 Nasal Cannula 2 08/12/16 21:20 67 16 148/79 98 Nasal Cannula 3 08/12/16 21:11 36.5 67 14 146/84 98 Nasal Cannula 3 08/12/16 20:03 66 16 133/80 92 08/12/16 18:02 66 16 129/77 92 Room Air Physical Exam General Appearance: + pertinent finding (+lethargic/tired/difficult to arouse) Respiratory/Chest: no respiratory distress, no accessory muscle use Cardiovascular: regular rate, rhythm, no edema, no murmur Abdomen: normal bowel sounds, non tender, soft Extremities: normal inspection, no pedal edema, + pertinent finding (PVD changes in the legs; +open wounds between gluteal skin folds) Laboratory Results Last 24 Hours Test 08/12/16 17:11 08/12/16 17:30 08/12/16 23:02 08/13/16 00:07 Bedside Prothrombin Time INR 2.1 Prothrombin Time 19.6 SECONDS Prothromb Time International Ratio 1.8 Activated Partial Thromboplast Time 40.1 SECONDS Partial Thromboplastin Ratio 1.5 Arterial Blood pH 7.30 Arterial Blood Partial Pressure CO2 70 mmHg Arterial Blood Partial Pressure O2 77 mm/Hg Arterial Blood HCO3 34 mmol/L Arterial Blood Oxygen Saturation 93.5 % Arterial Blood Base Excess 5.8 mEq/L Arterial Blood Gas Delivery 2 L O2 Junior Test POS Sodium Level 136 mmol/L Potassium Level 4.2 mmol/L Chloride Level 94 mmol/L Carbon Dioxide Level 34 mmol/L Anion Gap 8.0 mmol/L Blood Urea Nitrogen 28 mg/dl Creatinine 1.20 mg/dl Est Creatinine Clear Calc Drug Dose 62.3 ml/min Estimated GFR () 68.6 Estimated GFR (Non- 59.2 BUN/Creatinine Ratio 23.1 Random Glucose 130 mg/dl Calcium Level 8.3 mg/dl Total Creatine Kinase 37 U/L Creatine Kinase MB 2.1 ng/ml Creatine Kinase MB Ratio 5.7 Troponin I < 0.015 ng/ml Bedside Glucose 122 mg/dl Test 08/13/16 00:45 08/13/16 03:05 08/13/16 05:05 08/13/16 06:01 Arterial Blood pH 7.32 Arterial Blood Partial Pressure CO2 68 mmHg Arterial Blood Partial Pressure O2 79 mm/Hg Arterial Blood HCO3 35 mmol/L Arterial Blood Oxygen Saturation 94.5 % Arterial Blood Base Excess 6.5 mEq/L Arterial Blood Gas Delivery 30% BIPAP Junior Test POS Total Creatine Kinase 33 U/L Creatine Kinase MB 1.9 ng/ml Creatine Kinase MB Ratio 5.8 Troponin I < 0.015 ng/ml White Blood Count 6.69 K/uL Red Blood Count 4.43 M/uL Hemoglobin 11.5 g/dL Hematocrit 36.5 % Mean Corpuscular Volume 82.4 fL Mean Corpuscular Hemoglobin 26.0 pg Mean Corpuscular Hemoglobin Concent 31.5 g/dl Platelet Count 214 K/uL Mean Platelet Volume 9.9 fL Neutrophils (%) (Auto) 85.7 % Lymphocytes (%) (Auto) 10.6 % Monocytes (%) (Auto) 2.5 % Eosinophils (%) (Auto) 0.1 % Basophils (%) (Auto) 0.1 % Neutrophils # (Auto) 5.72 K/uL Lymphocytes # (Auto) 0.71 K/uL Monocytes # (Auto) 0.17 K/uL Eosinophils # (Auto) 0.01 K/uL Basophils # (Auto) 0.01 K/uL RDW Standard Deviation 54.0 fL RDW Coefficient of Variation 18.0 % Immature Granulocyte % (Auto) 1.0 % Immature Granulocyte # (Auto) 0.07 K/uL Prothrombin Time 19.8 SECONDS Prothromb Time International Ratio 1.8 Sodium Level 133 mmol/L Potassium Level 4.7 mmol/L Chloride Level 92 mmol/L Carbon Dioxide Level 32 mmol/L Anion Gap 9.0 mmol/L Blood Urea Nitrogen 26 mg/dl Creatinine 1.20 mg/dl Est Creatinine Clear Calc Drug Dose 62.1 ml/min Estimated GFR () 68.6 Estimated GFR (Non- 59.2 BUN/Creatinine Ratio 21.8 Random Glucose 158 mg/dl Calcium Level 8.6 mg/dl Bedside Glucose 171 mg/dl Test 08/13/16 10:54 Bedside Glucose 187 mg/dl Assessment and Plan This is a 76 year old male with PMH of 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 of atrial fibrillation on anticoagulation, recurrent lower extremity cellulitis, hx. of discitis, presents with difficulty breathing and abdominal pain, which was found to be a sigmoid volvulus Sigmoid Volvulus appreciate GI and surgical evaluations s/p colonoscopic decompression denies abdominal pain after colonoscopy will start clears and advance if okay with GI KUB in AM hemodynamically stable likely related to opioid overuse; may need pain management consultation for medication reconciliation Hypoxia Respiratory Distress CXR performed, no acute processes possibly related to opioid overuse has had problems with lethargy and hypoxia in the past bipap was initially started due to hypoxia, but that has been weaned off in no respiratory distress currently monitor pulse ox and uptitrate O2 as needed continue nebulizers PRN solu-medrol daily; will taper this in AM Hx. of Recurrent UTI in the setting of Neurogenic Bladder chronic indwelling catheter cultures are pending on Zosyn/Levaquin currently CAD restart ASA if no other intervention taking place Paroxysmal A. Fib rate controlled with sotalol restart Coumadin if no other surgical intervention is taking place Diastolic CHF hold diuretics, restart when tolerating PO intake DM2 hold oral agents insulin sliding scale will monitor BSGs with changing diet HTN continue Norvasc DVT ppx Coumadin FULL CODE d/c back to [facility] when medically stable
[2016-08-13] MEDS: PIPERACILL/TAZOBAC IV 4.5 GM in DEXTROSE 5% 100ML IV SCH ×2 (17:08→23:23)
[2016-08-13] MEDS ORDERED: NURSING VERBAL MED ORDER ONE (21:15)
[2016-08-13] MEDS ORDERED: HYDROmorphone INJ 0.5 MG/0.5 ML SYR IV PRN (23:00)
[2016-08-13] MEDS ORDERED: OPTIRAY 320 IV PRN (23:15)
[2016-08-13] MEDS: KETOROLAC TROMETHAMINE 15 MG/ML VIAL IV. PRN (23:24)
[2016-08-14] VITALS (10 sets, daily range): BP systolic 125–158; BP diastolic 71–93; PULSE 66–85; TEMP 36.7–37; O2SAT 88–98
[2016-08-14] MEDS: TRAMADOL HCL 50 MG TAB PO PRN ×3 (00:38→18:29)
[2016-08-14] MEDS: IPRATROPIUM BROMIDE NEB SOLN 0.02% 2.5 ML VIAL INH SCH ×4 (01:15→19:00)
[2016-08-14] MEDS: LEVALBUTEROL 1.25MG/0.5ML NEB INH SCH ×4 (01:15→19:00)
[2016-08-14] MEDS: HYDROmorphone INJ 1 MG/ML SYR IV PRN ×2 (01:39→22:17)
[2016-08-14] MEDS: LEVOFLOXACIN / D5W 750 MG in PREMIXED IN D5W 150 ML IV SCH (01:41)
[2016-08-14 06:12] LABS: BASO % 0.1 %; BASO ABS # 0.01 K/uL (0-0.2); COMPLETE YES; IG% 1.1 %; LYMPH % 7.3 %; LYMPH ABS # 0.57 K/uL (1.2-3.4); MEAN CELL VOLUME 82.8 fL (80-100); MEAN CORPUSCULAR HEMOGLOBIN 25.7 pg (25-34); MEAN CORPUSCULAR HGB CONC 31.1 g/dl (32-36); MEAN PLATELET VOLUME 9.8 fL (7.4-10.4); MONO % 3.2 %; NEUT % 88.3 %; PLATELET COUNT 220 K/uL (130-400); RED BLOOD COUNT 4.35 M/uL (4.7-6.1); WHITE BLOOD COUNT 7.85 K/uL (4.8-10.8)
[2016-08-14 06:20] LABS: INR 1.7 (0.9-1.1); PROTHROMBIN TIME (PATIENT) 18.6 SECONDS (9.0-12.0)
--- NOTE | 2016-08-14 06:21 | DIAGNOSTIC IMAGING REPORT ---
CHEST CTA for PULMONARY ARTERIES CT DOSE: 2737.69 mGy.cm HISTORY: Chest pain dyspnea TECHNIQUE: Multiaxial CT images of the chest were performed following the intravenous administration of contrast to evaluate the pulmonary arteries. Maximal intensity projection images were also obtained. COMPARISON STUDY: 06/20/2010 FINDINGS: Study is negative for pulmonary most. Pulmonary arteries enhance peripherally. Bibasilar atelectatic and/or infiltrative change. Trace bibasilar pleural effusions. Mild cardiomegaly. Unremarkable thoracic aorta. IMPRESSION: 1. Study is negative for pulmonary embolus. 2. Bibasilar atelectatic and/or infiltrative change. 3. Trace bibasilar pleural effusions Electronically signed by: Julian Vargas M.D. 08/14/2016 6:20 AM Dictated Date/Time: 08/14/2016 6:18 AM
[2016-08-14 06:37] LABS: BUN/CREATININE RATIO 18.8 (10-20); CALCIUM 8.3 mg/dl (8.5-10.1); CREATININE 1.4 mg/dl (0.60-1.40); POTASSIUM 4.2 mmol/L (3.5-5.1)
[2016-08-14] MEDS: INSULIN ASPART 100 UNITS/ML 3 ML PEN SC SCH ×4 (07:00→20:03)
[2016-08-14] MEDS: SOTALOL HCL 80 MG TAB PO SCH ×2 (07:37→19:53)
[2016-08-14] MEDS: PIPERACILL/TAZOBAC IV 4.5 GM in DEXTROSE 5% 100ML IV SCH (07:38)
[2016-08-14] MEDS: AMLODIPINE BESYLATE 5 MG TAB PO SCH (07:38)
[2016-08-14] MEDS: NYSTATIN CR 15 GM TUBE EXT SCH ×2 (07:39→19:53)
[2016-08-14] MEDS: DICLOFENAC SOD 1% GEL 100 GM TUBE EXT SCH ×3 (07:40→19:53)
[2016-08-14] MEDS: BACITRACIN OINT 15 GM TUBE TOP SCH ×2 (07:40→19:52)
--- NOTE | 2016-08-14 07:48 | DIAGNOSTIC IMAGING REPORT ---
CT SCAN OF THE ABDOMEN AND PELVIS WITH IV CONTRAST CLINICAL HISTORY: Generalized abdominal pain. Recent sigmoid volvulus. COMPARISON STUDY: Abdominal CT dated 08/12/2016. TECHNIQUE: Following the IV administration of 118 cc of Optiray 320, CT scan of the abdomen and pelvis is performed from the lung bases to the proximal femora. Images are reviewed in the axial, sagittal, and coronal planes. IV contrast was administered without complication. Automated dose control exposure was utilized. The examination is degraded by large body habitus, and by streak artifact from the body wall abutting the CT gantry. There is significant streak artifact in the upper abdomen from the patient's arms. FINDINGS: Lung bases: The heart is enlarged and without pericardial effusion. There is increasing dependent airspace consolidation. No pleural effusion is identified. Gynecomastia is noted. Liver: The contrast-enhanced liver is enlarged, measuring 18.5 cm in length. The liver demonstrates diffusely diminished attenuation consistent with hepatic steatosis. Fatty sparing is seen adjacent to gallbladder fossa. There is no intrahepatic biliary ductal dilatation. The hepatic veins and portal veins are patent. Gallbladder: Unremarkable. Spleen: Normal in size and attenuation. Pancreas: Moderately atrophic and grossly unremarkable. Adrenal glands: Unremarkable. Kidneys: The contrast enhanced kidneys demonstrate cortical atrophy and are without hydronephrosis. The kidneys enhance symmetrically. Bilateral subcentimeter cortical hypodensities likely represent cysts but are too small for definitive characterization. Abdominal vasculature: The abdominal aorta is normal in course and caliber noting advanced atherosclerotic calcification. 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 This is best seen on axial image # 143. Bowel: A rectal tube is in place within the tortuous sigmoid colon. There is diffuse wall thickening and hyperemia seen involving the majority of the sigmoid colon. No significant pericolonic inflammation is identified. There is no evidence of recurrent volvulus. The proximal colon is normal in appearance. No bowel obstruction is identified. The appendix is well-visualized and normal. Peritoneum: There is no intraperitoneal free air or abdominal ascites. There is near complete fatty atrophy of the paraspinous musculature and iliopsoas muscles. Lymphadenopathy: Mildly enlarged retroperitoneal and iliac chain lymph nodes are similar to previous. A left periaortic node on image # 241 measures 1.1 cm short axis. A left external iliac node on image # 356 measures 1.3 cm in short axis. Pelvic viscera: The bladder is decompressed around a Cantrell catheter and is grossly unremarkable. The prostate and seminal vesicles are normal as visualized. There is a small fat-containing left inguinal hernia. Skeletal structures: The skeletal structures are osteopenic. There is advanced lumbosacral spondylosis as well as mild scoliosis. Compression deformities are seen at T5, T6, T7, T8, T9, T10, and L5. There is near-complete bony fusion of L1 and L2. No lytic or blastic lesions are seen. Advanced destructive change is identified involving the right hip. This is similar in appearance to previous. Postoperative change is identified in the right ileum. Postoperative changes also partially Imaged in the left femur. IMPRESSION: 1. A rectal tube is in place. There is no evidence of recurrent sigmoid volvulus. 2. There is diffuse wall thickening and hyperemia seen throughout the sigmoid colon. No significant pericolonic inflammation is identified. The appearance suggests a nonspecific colitis. This could be on an infectious, inflammatory, or ischemic basis. Clinical correlation will be required. 3. Mildly enlarged retroperitoneal and iliac chain lymph nodes are identified and similar appearance to 05/04/2016 examination. These are indeterminant and may be on a reactive basis. 4. Hepatomegaly and severe hepatic steatosis. 5. There is increasing bibasilar dependent airspace consolidation. This likely represents atelectasis. Correlate clinically for evidence of developing pneumonia. 6. 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 7. Advanced destructive changes in the right hip are similar to previous. 8. Cardiomegaly. 9. Numerous compression deformities are noted throughout the imaged spine. 10. Additional changes as above. Electronically signed by: Juan Garcia M.D. 08/14/2016 7:46 AM Dictated Date/Time: 08/14/2016 7:40 AM
[2016-08-14] MEDS ORDERED: GLUCOSE 40% GEL 15 GM TUBE PO PRN (09:00)
[2016-08-14] MEDS ORDERED: GLUCAGON FOR INJ 1 MG VIAL SQ PRN (09:00)
[2016-08-14] MEDS ORDERED: DEXTROSE 50% 50 ML SYR IV PRN (09:00)
[2016-08-14] MEDS ORDERED: GLUCOSE 10 TABS/TUBE PO PRN (09:00)
--- NOTE | 2016-08-14 09:03 | DIAGNOSTIC IMAGING REPORT ---
KUB CLINICAL HISTORY: Generalized abdominal pain. Recent sigmoid volvulus and rectal tube. FINDINGS: 3 AP, portable, supine abdominal radiographs are correlated with abdominal CT dated 08/14/2016. The examination is significantly degraded by large body habitus. There is no radiographic evidence of bowel obstruction. A rectal tube is in place, coiled within the sigmoid colon. The tip is located in the right lower quadrant. No evidence of intraperitoneal free air is seen on these supine views. The skeletal structures are osteopenic. Extensive chronic deformity is noted in the hips and bony pelvis. Orthopedic hardware is seen in the right ileum and the left proximal femur. There is lumbosacral spondylosis and scoliosis. IMPRESSION: 1. No bowel obstruction. 2. A rectal tube is unchanged in position. Electronically signed by: Juan Garcia M.D. 08/14/2016 9:02 AM Dictated Date/Time: 08/14/2016 9:00 AM
--- NOTE | 2016-08-14 10:22 | Gastroenterology Progress Note ---
Progress Note Date of Service: Aug 14, 2016 Subjective Pt evaluation today including: conversation w/ patient, physical exam, chart review, lab review, review of studies, review of inpatient medication list Mr. Gould is a 76 yr old male with hx of T5 paraplegia who lives at [facility] and also with hx of CAD, PAF on chronic anticoagulation, neurogenic bladder, DM , and HTN. He presented to the ER yesterday, brought from [place]. He underwent colonoscopic decompression and rectal tube placement on 08/12. Because of pain late yesterday, CT was completed with rectal tube in place, no obstruction or perforation. KUB this morning with similar findings. Today he has minimal diffuse abdominal discomfort, no significant pain. Review of Systems Constitutional: No fever Respiratory: No cough Cardiac: No chest pain Abdomen: + pain, + see HPI, No GI bleeding, No constipation, No diarrhea, No nausea, No vomiting Neuro: No memory loss Psych: No depression symptoms Heme: No abnormal bleeding/bruising Endo: No fatigue Skin: No rash Medications Current Inpatient Medications Medications (Trade) Dose Ordered Sig/Betzy Route Start Time Stop Time Status Last Admin Dose Admin Ioversol (Optiray 320) 100 ml UD PRN IV 08/12/16 15:00 08/16/16 14:59 Miscellaneous Information (Consult Glycemic Management Pharmacy) 1 ea UD PRN N/A 08/12/16 19:30 09/11/16 19:29 Ondansetron HCl (Zofran Inj) 4 mg Q6H PRN IV 08/12/16 18:30 09/11/16 18:29 Ipratropium [place] (Atrovent 0.02% 0.5MG/2.5ML Neb) 0.5 mg Q6R INH 08/12/16 21:00 09/11/16 20:59 08/14/16 07:12 0.5 MG Levalbuterol (Xopenex 1.25MG/ 0.5ML Neb) 1.25 mg Q6R INH 08/12/16 21:00 09/11/16 20:59 08/14/16 07:12 1.25 MG Levofloxacin 1 ea 1 ea UD PRN N/A 08/12/16 19:30 09/11/16 19:29 Levofloxacin/Prmx (Levaquin / D5W/ Premixed D5W) 150 ml @ 100 mls/hr Q24H IV 08/13/16 02:00 08/20/16 01:59 08/14/16 01:41 100 MLS/HR Diclofenac Sodium (Voltaren 1% Top Gel) 1 appln TID EXT 08/12/16 21:00 09/11/16 20:59 08/14/16 07:40 1 APPLN Bacitracin (Bacitracin Oint) 1 appln BID TOP 08/12/16 21:00 09/11/16 20:59 08/14/16 07:40 1 APPLN Nystatin (Mycostatin Crm) 1 appln BID EXT 08/12/16 21:00 09/11/16 20:59 08/14/16 07:39 1 APPLN Sotalol HCl (Betapace Tab) 80 mg BID PO 08/12/16 21:00 09/11/16 20:59 08/14/16 07:37 80 MG Amlodipine Besylate (Norvasc Tab) 5 mg QAM PO 08/14/16 09:00 09/13/16 08:59 08/14/16 07:38 5 MG Insulin Aspart (novoLOG ASPART) SLIDING SCALE G... ACHS SC 08/14/16 07:00 09/13/16 06:59 Tramadol HCl (Ultram Tab) 25 mg Q6H PRN PO 08/13/16 23:00 09/12/16 22:59 08/14/16 00:38 25 MG Hydromorphone HCl (Dilaudid Inj) 0.25 mg Q6H PRN IV 08/13/16 23:00 08/27/16 22:59 08/14/16 01:39 0.25 MG Ketorolac Tromethamine (Toradol Inj) 15 mg Q6H PRN IV. 08/13/16 23:00 08/18/16 22:59 08/13/16 23:24 15 MG Ioversol (Optiray 320) 111 ml UD PRN IV 08/13/16 23:15 08/17/16 23:14 Prednisone (PredniSONE TAB) 40 mg DAILY PO 08/14/16 09:00 09/13/16 08:59 08/14/16 09:28 40 MG Glucose (Glucose 40% Gel) 15-30 GRAMS 15 GRAMS... UD PRN PO 08/14/16 09:00 09/13/16 08:59 Glucose (Glucose Chew Tab) 4-8 Tablets 4 Tabl... UD PRN PO 08/14/16 09:00 09/13/16 08:59 Dextrose (Dextrose 50% 50ML Syringe) 25-50ML OF 50% DW IV FOR... UD PRN IV 08/14/16 09:00 09/13/16 08:59 Glucagon (Glucagon Inj) 1 mg UD PRN SQ 08/14/16 09:00 09/13/16 08:59 Objective Vital Signs Date Time Temp Pulse Resp B/P Pulse Ox O2 Delivery O2 Flow Rate FiO2 08/14/16 10:02 36.9 69 20 133/82 92 3.0 08/14/16 08:13 36.8 66 18 158/93 96 08/14/16 08:00 Nasal Cannula 08/14/16 07:15 68 18 92 Nasal Cannula 4.0 08/14/16 04:10 93 Nasal Cannula 4.0 08/14/16 03:07 37.0 66 21 125/71 93 Nasal Cannula 4.0 08/14/16 01:16 85 18 94 Nasal Cannula 4.0 08/14/16 00:00 98 Nasal Cannula 4.0 08/13/16 23:32 37.0 66 18 144/76 97 Nasal Cannula 4.0 08/13/16 20:10 Nasal Cannula 4.0 08/13/16 19:13 84 18 94 Nasal Cannula 4.0 08/13/16 18:59 36.9 78 15 136/99 92 Nasal Cannula 4.0 08/13/16 16:00 95 Nasal Cannula 4.0 08/13/16 14:58 36.6 63 15 159/106 95 Nasal Cannula 4.0 08/13/16 14:19 76 18 96 Nasal Cannula 4.0 08/13/16 12:00 BiPAP 50 08/13/16 11:09 36.4 64 14 135/81 96 BiPAP 50 Physical Exam General Appearance: no apparent distress Neck: no JVD Respiratory/Chest: lungs clear Cardiovascular: regular rate, rhythm, no JVD, no murmur Abdomen: soft, + tenderness (minmal, diffuse) Neurologic/Psych: alert, normal mood/affect, oriented x 3 Skin: no jaundice Laboratory Results Last 24 Hours Test 08/13/16 10:54 08/13/16 18:05 08/13/16 20:19 08/14/16 05:09 Bedside Glucose 187 mg/dl 189 mg/dl 152 mg/dl White Blood Count 7.85 K/uL Red Blood Count 4.35 M/uL Hemoglobin 11.2 g/dL Hematocrit 36.0 % Mean Corpuscular Volume 82.8 fL Mean Corpuscular Hemoglobin 25.7 pg Mean Corpuscular Hemoglobin Concent 31.1 g/dl Platelet Count 220 K/uL Mean Platelet Volume 9.8 fL Neutrophils (%) (Auto) 88.3 % Lymphocytes (%) (Auto) 7.3 % Monocytes (%) (Auto) 3.2 % Eosinophils (%) (Auto) 0.0 % Basophils (%) (Auto) 0.1 % Neutrophils # (Auto) 6.93 K/uL Lymphocytes # (Auto) 0.57 K/uL Monocytes # (Auto) 0.25 K/uL Eosinophils # (Auto) 0.00 K/uL Basophils # (Auto) 0.01 K/uL RDW Standard Deviation 53.8 fL RDW Coefficient of Variation 17.7 % Immature Granulocyte % (Auto) 1.1 % Immature Granulocyte # (Auto) 0.09 K/uL Prothrombin Time 18.6 SECONDS Prothromb Time International Ratio 1.7 Sodium Level 136 mmol/L Potassium Level 4.2 mmol/L Chloride Level 93 mmol/L Carbon Dioxide Level 35 mmol/L Anion Gap 8.0 mmol/L Blood Urea Nitrogen 26 mg/dl Creatinine 1.40 mg/dl Est Creatinine Clear Calc Drug Dose 52.1 ml/min Estimated GFR () 57.0 Estimated GFR (Non- 49.1 BUN/Creatinine Ratio 18.8 Random Glucose 167 mg/dl Calcium Level 8.3 mg/dl Test 08/14/16 06:52 Bedside Glucose 171 mg/dl Assessment and Plan Mr. Gould is a 76 yr old paraplegic male who is two days post colonoscopic decompression of a sigmoid volvulus. He is doing well, though is high risk for recurrence. Plan: 1. Avoid medications that slow GI motility: narcotics, benzos, anticholinergics. Consider ongoing stimulant and osmotic laxatives. 2. Keep rectal tube in as long as possible. 3. Would defer consideration for surgery, advancement of diet and other further management to surgery. GI will watch peripherally. I have seen , examined and agree with the plan as outlined by HOPE James as above. -exam reveals soft abd -Definitive therapy per surgery
--- NOTE | 2016-08-14 10:42 | Surgery Progress Note ---
Surgery Progress Note Date of Service Aug 14, 2016. Subjective Post OP Day: 2 (s/p sigmoid volvulus decompression and rectal tube placement) + diet (clear liquids), + feeling well, + pain controlled, No bowel movement, No chest pain, No flatus, No nausea, No vomiting Objective Vital Signs: Date Time Temp Pulse Resp B/P Pulse Ox O2 Delivery O2 Flow Rate FiO2 08/14/16 10:02 36.9 69 20 133/82 92 3.0 08/14/16 08:13 36.8 66 18 158/93 96 08/14/16 08:00 Nasal Cannula 08/14/16 07:15 68 18 92 Nasal Cannula 4.0 08/14/16 04:10 93 Nasal Cannula 4.0 08/14/16 03:07 37.0 66 21 125/71 93 Nasal Cannula 4.0 08/14/16 01:16 85 18 94 Nasal Cannula 4.0 08/14/16 00:00 98 Nasal Cannula 4.0 08/13/16 23:32 37.0 66 18 144/76 97 Nasal Cannula 4.0 08/13/16 20:10 Nasal Cannula 4.0 08/13/16 19:13 84 18 94 Nasal Cannula 4.0 08/13/16 18:59 36.9 78 15 136/99 92 Nasal Cannula 4.0 08/13/16 16:00 95 Nasal Cannula 4.0 08/13/16 14:58 36.6 63 15 159/106 95 Nasal Cannula 4.0 08/13/16 14:19 76 18 96 Nasal Cannula 4.0 08/13/16 12:00 BiPAP 50 08/13/16 11:09 36.4 64 14 135/81 96 BiPAP 50 General Appearance: WD/WN, no apparent distress, + obese Head: normocephalic, atraumatic Respiratory/Chest: normal breath sounds (on 4 liters of O2 via nc), no respiratory distress, no accessory muscle use, + wheezing Cardiovascular: regular rate, rhythm Abdomen: normal bowel sounds, non distended, soft, no pulsatile mass, + tenderness (slihgtly tender however no real pain on palpation) Laboratory Results: Results Past 24 Hours Test 08/13/16 10:54 08/13/16 18:05 08/13/16 20:19 08/14/16 05:09 Range/Units Bedside Glucose 187 189 152 70-99 mg/dl White Blood Count 7.85 4.8-10.8 K/uL Red Blood Count 4.35 4.7-6.1 M/uL Hemoglobin 11.2 14.0-18.0 g/dL Hematocrit 36.0 42-52 % Mean Corpuscular Volume 82.8 80-100 fL Mean Corpuscular Hemoglobin 25.7 25-34 pg Mean Corpuscular Hemoglobin Concent 31.1 32-36 g/dl Platelet Count 220 130-400 K/uL Mean Platelet Volume 9.8 7.4-10.4 fL Neutrophils (%) (Auto) 88.3 % Lymphocytes (%) (Auto) 7.3 % Monocytes (%) (Auto) 3.2 % Eosinophils (%) (Auto) 0.0 % Basophils (%) (Auto) 0.1 % Neutrophils # (Auto) 6.93 1.4-6.5 K/uL Lymphocytes # (Auto) 0.57 1.2-3.4 K/uL Monocytes # (Auto) 0.25 0.11-0.59 K/uL Eosinophils # (Auto) 0.00 0-0.5 K/uL Basophils # (Auto) 0.01 0-0.2 K/uL RDW Standard Deviation 53.8 36.4-46.3 fL RDW Coefficient of Variation 17.7 11.5-14.5 % Immature Granulocyte % (Auto) 1.1 % Immature Granulocyte # (Auto) 0.09 0.00-0.02 K/uL Prothrombin Time 18.6 9.0-12.0 SECONDS Prothromb Time International Ratio 1.7 0.9-1.1 Sodium Level 136 136-145 mmol/L Potassium Level 4.2 3.5-5.1 mmol/L Chloride Level 93 98-107 mmol/L Carbon Dioxide Level 35 21-32 mmol/L Anion Gap 8.0 3-11 mmol/L Blood Urea Nitrogen 26 7-18 mg/dl Creatinine 1.40 0.60-1.40 mg/dl Est Creatinine Clear Calc Drug Dose 52.1 ml/min Estimated GFR () 57.0 Estimated GFR (Non- 49.1 BUN/Creatinine Ratio 18.8 10-20 Random Glucose 167 70-99 mg/dl Calcium Level 8.3 8.5-10.1 mg/dl Test 2/2/17 06:52 Range/Units Bedside Glucose 171 70-99 mg/dl Assessment & Plan I interviewed and examined the patient an reviewed his labs and I agree with the above note. I discussed surgical options for sigmoid volvulus and explained that surgery is the usual recommendation. I explained that the bowel can retwist and that it is common for that to happen. I explained the options of removing the bowel and reconnecting it or possibly creating a colostomy which would give better control for healing of the decubitus ulcers. He stated that he just wants to go back to where he was living. I asked him to think about it over night and we could discuss it more tomorrow. POD # 2 s/p Sigmoid volvulus Decompression with rectal tube placement - KUB this am shows no sign of bowel obstruction, rectal tube tip present in sigmoid colon - vital signs stable - O2 via nasal canula and not BIPAP - no leukocytosis - abdominal examination benign, nondistended Plan: Continue Clear liquid diet Continue Rectal tube for decompression Continue current management established by hospitalist service will continue to monitor I have discussed this patient with Dr. Garcia who agrees with above stated findings and treatment plan.
--- NOTE | 2016-08-14 12:47 | Pharmacy Progress Note ---
Glycemic Control: Progress Nt Date of Service Aug 14, 2016. Scope Glycemic Pharmacist consulted by Dr Turner on 08/12/16 for glycemic control and to write orders per [facility] inpatient glycemic control protocol. Objective Accuchecks BSG (last 24hrs): Test 08/13/16 18:05 08/13/16 20:19 08/14/16 05:09 08/14/16 06:52 Bedside Glucose 189 mg/dl (70-99) 152 mg/dl (70-99) 171 mg/dl (70-99) Random Glucose 167 mg/dl (70-99) Test 08/14/16 11:26 Bedside Glucose 181 mg/dl (70-99) Laboratory Data (last 24hrs) Test 08/14/16 05:09 Anion Gap 8.0 mmol/L BUN/Creatinine Ratio 18.8 Blood Urea Nitrogen 26 mg/dl Creatinine 1.40 mg/dl Potassium Level 4.2 mmol/L Sodium Level 136 mmol/L White Blood Count 7.85 K/uL Red Blood Count 4.35 M/uL Hemoglobin 11.2 g/dL Hematocrit 36.0 % Mean Corpuscular Volume 82.8 fL Mean Corpuscular Hemoglobin 25.7 pg Mean Corpuscular Hemoglobin Concent 31.1 g/dl Platelet Count 220 K/uL Mean Platelet Volume 9.8 fL Neutrophils (%) (Auto) 88.3 % Lymphocytes (%) (Auto) 7.3 % Monocytes (%) (Auto) 3.2 % Eosinophils (%) (Auto) 0.0 % Basophils (%) (Auto) 0.1 % Neutrophils # (Auto) 6.93 K/uL Lymphocytes # (Auto) 0.57 K/uL Monocytes # (Auto) 0.25 K/uL Eosinophils # (Auto) 0.00 K/uL Basophils # (Auto) 0.01 K/uL Recent Pertinent Medications Outpatient Anti-diabetic Regimen: * Metformin 1000 mg PO BIDM * A1c = 6.8 % 06/18/16 The patient is currently receiving: * Correctional Insulin: Novolog Correction per scale ACHS Goal Range: Low 140 mg/dL - High 180 mg/dL Correction Factor: 25 mg/dL/unit * Prandial insulin: Per carb ratio of 1 unit per 9 grams CHO consumed * Oral Agents: currently on hold Risk Factors for Insulin Resistance: * Steroids: Solu-medrol 40mg IV - last dose last night --> Prednisone 40mg PO Daily started today * Infection: IV Levaquin * Recent Surgery: POD2 sigmoid decompression and rectal tube placement * Diet: Clears Assessment & Plan ASSESSMENT: 08/13/16 * 76 yo T2D M known to the glycemic service from previous admissions, admitted with abdominal pain * A1c 6.8% from 06/2016 indicative of good glycemic control * BSGs were within goal range over night and a weight-based Novolog scale was started * Patient remains NPO- underwent colonoscopic decompression overnight * He typically does not require much insulin to keep BSGs within goal range; however, he is on solumedrol 40 mg IV daily which will change things--> tighten Novolog slightly * ADA & AACE recommend a goal blood sugar range 140-180 mg/dl for the majority of critically ill & non-critically ill patients. However, more stringent targets may be selected in individual cases. 08/14/16 * Patient required 5 units of insulin yesterday, 0 units so far today. BSGs at goal. No changes in regimen required at this time. * Steroids transitioned to oral PLAN FOR INPATIENT GLYCEMIC CONTROL: * Hold outpatient oral diabetes medications * Correctional Insulin with NOVOLOG per scale ACHS or Q6hrs while NPO * Goal Range: Low 140 mg/dL - High 180 mg/dL * Correction Factor: 25 mg/dL/unit * Nutritional / Prandial insulin per carb ratio of 1 unit per 9 grams CHO consumed * Please note that the plan above was derived based on current level of insulin resistance and hospital stress. These recommendations are appropriate for inpatient admission only. Plan of care upon discharge will need to be reassessed to avoid potential outpatient hypo/hyperglycemia. Thank you.
[2016-08-14] MEDS: KETOROLAC TROMETHAMINE 15 MG/ML VIAL IV. PRN ×2 (12:54→19:56)
[2016-08-14] MEDS ORDERED: NURSING VERBAL MED ORDER ONE (14:15)
[2016-08-14] MEDS: FUROSEMIDE 20 MG TAB PO SCH (15:35)
[2016-08-14] MEDS ORDERED: PREGABALIN 75 MG CAP PO SCH (21:00)
[2016-08-15 00:32] VITALS: BP 139/77; PULSE 67; TEMP 36.8; O2SAT 93
[2016-08-15 02:06] VITALS: PULSE 68; O2SAT 92
[2016-08-15] MEDS: IPRATROPIUM BROMIDE NEB SOLN 0.02% 2.5 ML VIAL INH SCH ×3 (02:06→14:01)
[2016-08-15] MEDS: LEVALBUTEROL 1.25MG/0.5ML NEB INH SCH ×3 (02:06→14:01)
[2016-08-15] MEDS: LEVOFLOXACIN / D5W 750 MG in PREMIXED IN D5W 150 ML IV SCH (02:29)
[2016-08-15] MEDS: KETOROLAC TROMETHAMINE 15 MG/ML VIAL IV. PRN (02:58)
[2016-08-15 06:08] LABS: BASO % 0.1 %; BASO ABS # 0.01 K/uL (0-0.2); COMPLETE YES; IG% 1.5 %; LYMPH ABS # 0.96 K/uL (1.2-3.4); MEAN CELL VOLUME 82.4 fL (80-100); MEAN CORPUSCULAR HGB CONC 31.6 g/dl (32-36); MEAN PLATELET VOLUME 9.6 fL (7.4-10.4); MONO % 12.3 %; NEUT % 74.1 %; PLATELET COUNT 248 K/uL (130-400); RED BLOOD COUNT 4.61 M/uL (4.7-6.1); WHITE BLOOD COUNT 7.99 K/uL (4.8-10.8)
[2016-08-15 06:22] LABS: INR 1.5 (0.9-1.1); PROTHROMBIN TIME (PATIENT) 16.5 SECONDS (9.0-12.0)
[2016-08-15 06:48] LABS: CALCIUM 8.7 mg/dl (8.5-10.1); CREATININE 1.4 mg/dl (0.60-1.40); POTASSIUM 3.2 mmol/L (3.5-5.1)
[2016-08-15 07:24] VITALS: PULSE 71; O2SAT 93
--- NOTE | 2016-08-15 07:51 | Surgery Progress Note ---
Surgery Progress Note Date of Service Aug 15, 2016. Subjective No bowel movement, No nausea, No vomiting Denies abdominal pain Objective Vital Signs: Date Time Temp Pulse Resp B/P Pulse Ox O2 Delivery O2 Flow Rate FiO2 08/15/16 07:24 71 18 93 Nasal Cannula 4.0 08/15/16 02:06 68 18 92 Nasal Cannula 4.0 08/15/16 00:32 36.8 67 18 139/77 93 Nasal Cannula 4.0 08/15/16 00:00 Nasal Cannula 4.0 08/14/16 19:00 76 18 91 Room Air 08/14/16 16:03 36.7 66 18 145/89 92 Nasal Cannula 4.0 08/14/16 16:00 Nasal Cannula 4.0 08/14/16 15:08 67 18 88 Nasal Cannula 2.0 08/14/16 10:02 36.9 69 20 133/82 92 3.0 08/14/16 10:00 Nasal Cannula 4.0 08/14/16 08:13 36.8 66 18 158/93 96 08/14/16 08:00 Nasal Cannula Abdomen: normal bowel sounds, non tender, soft Laboratory Results: Results Past 24 Hours Test 08/14/16 11:26 08/14/16 19:42 08/15/16 05:19 Range/Units Bedside Glucose 181 222 70-99 mg/dl White Blood Count 7.99 4.8-10.8 K/uL Red Blood Count 4.61 4.7-6.1 M/uL Hemoglobin 12.0 14.0-18.0 g/dL Hematocrit 38.0 42-52 % Mean Corpuscular Volume 82.4 80-100 fL Mean Corpuscular Hemoglobin 26.0 25-34 pg Mean Corpuscular Hemoglobin Concent 31.6 32-36 g/dl Platelet Count 248 130-400 K/uL Mean Platelet Volume 9.6 7.4-10.4 fL Neutrophils (%) (Auto) 74.1 % Lymphocytes (%) (Auto) 12.0 % Monocytes (%) (Auto) 12.3 % Eosinophils (%) (Auto) 0.0 % Basophils (%) (Auto) 0.1 % Neutrophils # (Auto) 5.92 1.4-6.5 K/uL Lymphocytes # (Auto) 0.96 1.2-3.4 K/uL Monocytes # (Auto) 0.98 0.11-0.59 K/uL Eosinophils # (Auto) 0.00 0-0.5 K/uL Basophils # (Auto) 0.01 0-0.2 K/uL RDW Standard Deviation 54.0 36.4-46.3 fL RDW Coefficient of Variation 17.8 11.5-14.5 % Immature Granulocyte % (Auto) 1.5 % Immature Granulocyte # (Auto) 0.12 0.00-0.02 K/uL Nucleated RBC Absolute Count (auto) 0.02 0-0 K/uL Nucleated Red Blood Cells % 0.2 % Prothrombin Time 16.5 9.0-12.0 SECONDS Prothromb Time International Ratio 1.5 0.9-1.1 Sodium Level 136 136-145 mmol/L Potassium Level 3.2 3.5-5.1 mmol/L Chloride Level 91 98-107 mmol/L Carbon Dioxide Level 34 21-32 mmol/L Anion Gap 11.0 3-11 mmol/L Blood Urea Nitrogen 29 7-18 mg/dl Creatinine 1.40 0.60-1.40 mg/dl Est Creatinine Clear Calc Drug Dose 52.1 ml/min Estimated GFR () 57.0 Estimated GFR (Non- 49.1 BUN/Creatinine Ratio 21.0 10-20 Random Glucose 131 70-99 mg/dl Calcium Level 8.7 8.5-10.1 mg/dl Assessment & Plan Sigmoid volvulus I reviewed surgical poptions Patient stated "I don't want to stay in hospital that long" I explained that the twist might recur He understands that but does not want surgery right now Consider removing rectal tube and feeding If volvulus recurs will need to discuss surgery again at that time..
[2016-08-15] MEDS ORDERED: PREGABALIN 50 MG CAP PO SCH (08:00)
[2016-08-15] MEDS: SOTALOL HCL 80 MG TAB PO SCH (08:05)
[2016-08-15] MEDS: NYSTATIN CR 15 GM TUBE EXT SCH (08:05)
[2016-08-15] MEDS: AMLODIPINE BESYLATE 5 MG TAB PO SCH (08:05)
[2016-08-15] MEDS: BACITRACIN OINT 15 GM TUBE TOP SCH (08:05)
[2016-08-15 08:06] VITALS: BP 162/92; PULSE 63; TEMP 36.8; O2SAT 93
[2016-08-15] MEDS: FUROSEMIDE 20 MG TAB PO SCH (08:08)
[2016-08-15] MEDS: DICLOFENAC SOD 1% GEL 100 GM TUBE EXT SCH ×2 (08:47→14:00)
[2016-08-15] MEDS: INSULIN ASPART 100 UNITS/ML 3 ML PEN SC SCH ×2 (08:51→12:42)
[2016-08-15] MEDS: HYDROmorphone INJ 1 MG/ML SYR IV PRN (11:34)
--- NOTE | 2016-08-15 13:00 | Pharmacy Progress Note ---
Glycemic: Assessment & Plan Date of Service Aug 15, 2016. Assessment & Plan The patient received 5 units of insulin on 08/13, 8 units on 08/14. BSGs ranging 113 - 222 mg/dl over the past 24hrs. Running a bit high following steroid. IV Levaquin was dc'd. Diet still clear liquid but may be advanced. Will decrease goal range and tighten Novolog coverage. * Basal insulin: none at this time * Correctional Insulin: Novolog Correction per scale ACHS Goal Range: Low 120 mg/dL - High 140 mg/dL Correction Factor: 20 mg/dL/unit * Prandial insulin: Per carb ratio of 1 unit per 8 grams CHO consumed BSGs continue to improve, no other changes needed to inpatient regimen at this time. Pharmacy will continue to monitor patient daily and write orders per [facility] inpatient glycemic control protocol. Thanks. * Please note that the plan above was derived based on current level of insulin resistance and hospital stress. These recommendations are appropriate for inpatient admission only. Plan of care upon discharge will need to be reassessed to avoid potential outpatient hypo/hyperglycemia.
--- NOTE | 2016-08-15 13:11 | Progress Note ---
Subjective Date of Service: Aug 15, 2016. Subjective Pt evaluation today including: conversation w/ patient, physical exam, lab review, review of studies, conversation w/ toy consultant, review of inpatient medication list Saw/examined the patient in room 404 Denies any abdominal pain, no other problems/issues Very anxious/eager to get back to [facility] Problem List Medical Problems: (1) Altered mental status Status: Acute (2) Altered mental status Status: Acute (3) Altered mental status Status: Acute (4) Diffuse abdominal pain Status: Acute (5) Dislodged Cantrell catheter Status: Acute (6) Fever Status: Acute (7) Hematuria Status: Acute (8) Hyperglycemia Status: Acute (9) Hypomagnesemia Status: Acute (10) Hypoxia Status: Acute (11) Hypoxia Status: Acute (12) Lactic acid acidosis Status: Acute (13) Left lower lobe pneumonia Status: Acute (14) Leukocytosis Status: Acute (15) Pneumonia Status: Acute (16) Renal insufficiency Status: Acute (17) Sigmoid volvulus Status: Acute (18) UTI (urinary tract infection) Status: Acute (19) UTI (urinary tract infection) Status: Acute (20) UTI (urinary tract infection) Status: Acute (21) UTI (urinary tract infection) Status: Acute Review of Systems Constitutional: No chills, No fever Abdomen: No diarrhea, No nausea, No pain, No vomiting Medications Current Inpatient Medications Medications (Trade) Dose Ordered Sig/Betzy Route Start Time Stop Time Status Last Admin Dose Admin Ioversol (Optiray 320) 100 ml UD PRN IV 08/12/16 15:00 08/16/16 14:59 Miscellaneous Information (Consult Glycemic Management Pharmacy) 1 ea UD PRN N/A 08/12/16 19:30 09/11/16 19:29 Ondansetron HCl (Zofran Inj) 4 mg Q6H PRN IV 08/12/16 18:30 09/11/16 18:29 Ipratropium [place] (Atrovent 0.02% 0.5MG/2.5ML Neb) 0.5 mg Q6R INH 08/12/16 21:00 09/11/16 20:59 08/15/16 07:24 0.5 MG Levalbuterol (Xopenex 1.25MG/ 0.5ML Neb) 1.25 mg Q6R INH 08/12/16 21:00 09/11/16 20:59 08/15/16 07:24 1.25 MG Diclofenac Sodium (Voltaren 1% Top Gel) 1 appln TID EXT 08/12/16 21:00 09/11/16 20:59 08/15/16 08:47 1 APPLN Bacitracin (Bacitracin Oint) 1 appln BID TOP 08/12/16 21:00 09/11/16 20:59 08/15/16 08:05 1 APPLN Nystatin (Mycostatin Crm) 1 appln BID EXT 08/12/16 21:00 09/11/16 20:59 08/15/16 08:05 1 APPLN Sotalol HCl (Betapace Tab) 80 mg BID PO 08/12/16 21:00 09/11/16 20:59 08/15/16 08:05 80 MG Amlodipine Besylate (Norvasc Tab) 5 mg QAM PO 08/14/16 09:00 09/13/16 08:59 08/15/16 08:05 5 MG Insulin Aspart (novoLOG ASPART) SLIDING SCALE G... ACHS SC 08/14/16 07:00 09/13/16 06:59 08/15/16 12:42 4 UNITS Tramadol HCl (Ultram Tab) 25 mg Q6H PRN PO 08/13/16 23:00 09/12/16 22:59 08/14/16 18:29 25 MG Hydromorphone HCl (Dilaudid Inj) 0.25 mg Q6H PRN IV 08/13/16 23:00 08/27/16 22:59 08/15/16 11:34 0.25 MG Ketorolac Tromethamine (Toradol Inj) 15 mg Q6H PRN IV. 08/13/16 23:00 08/18/16 22:59 08/15/16 02:58 15 MG Ioversol (Optiray 320) 111 ml UD PRN IV 08/13/16 23:15 08/17/16 23:14 Prednisone (PredniSONE TAB) 40 mg DAILY PO 08/14/16 09:00 09/13/16 08:59 08/15/16 08:05 40 MG Glucose (Glucose 40% Gel) 15-30 GRAMS 15 GRAMS... UD PRN PO 08/14/16 09:00 09/13/16 08:59 Glucose (Glucose Chew Tab) 4-8 Tablets 4 Tabl... UD PRN PO 08/14/16 09:00 09/13/16 08:59 Dextrose (Dextrose 50% 50ML Syringe) 25-50ML OF 50% DW IV FOR... UD PRN IV 08/14/16 09:00 09/13/16 08:59 Glucagon (Glucagon Inj) 1 mg UD PRN SQ 08/14/16 09:00 09/13/16 08:59 Furosemide (Lasix Tab) 20 mg QAM PO 08/14/16 14:30 09/13/16 14:29 08/15/16 08:08 20 MG Pregabalin (Lyrica Cap) 50 mg QAM PO 08/15/16 08:00 09/14/16 07:59 08/15/16 08:05 50 MG Pregabalin (Lyrica Cap) 75 mg PM PO 08/14/16 21:00 09/13/16 20:59 08/14/16 20:04 75 MG Objective Vital Signs Date Time Temp Pulse Resp B/P Pulse Ox O2 Delivery O2 Flow Rate FiO2 08/15/16 08:06 36.8 63 20 162/92 93 08/15/16 08:00 Nasal Cannula 4.0 08/15/16 07:24 71 18 93 Nasal Cannula 4.0 08/15/16 02:06 68 18 92 Nasal Cannula 4.0 08/15/16 00:32 36.8 67 18 139/77 93 Nasal Cannula 4.0 08/15/16 00:00 Nasal Cannula 4.0 08/14/16 19:00 76 18 91 Room Air 08/14/16 16:03 36.7 66 18 145/89 92 Nasal Cannula 4.0 08/14/16 16:00 Nasal Cannula 4.0 08/14/16 15:08 67 18 88 Nasal Cannula 2.0 Physical Exam General Appearance: no apparent distress, + pertinent finding (+paraplegia) Respiratory/Chest: lungs clear, normal breath sounds, no respiratory distress, no accessory muscle use Cardiovascular: regular rate, rhythm, no edema, no murmur Abdomen: normal bowel sounds, non tender, soft Laboratory Results Last 24 Hours Test 08/14/16 19:42 08/15/16 05:19 08/15/16 07:59 Bedside Glucose 222 mg/dl 113 mg/dl White Blood Count 7.99 K/uL Red Blood Count 4.61 M/uL Hemoglobin 12.0 g/dL Hematocrit 38.0 % Mean Corpuscular Volume 82.4 fL Mean Corpuscular Hemoglobin 26.0 pg Mean Corpuscular Hemoglobin Concent 31.6 g/dl Platelet Count 248 K/uL Mean Platelet Volume 9.6 fL Neutrophils (%) (Auto) 74.1 % Lymphocytes (%) (Auto) 12.0 % Monocytes (%) (Auto) 12.3 % Eosinophils (%) (Auto) 0.0 % Basophils (%) (Auto) 0.1 % Neutrophils # (Auto) 5.92 K/uL Lymphocytes # (Auto) 0.96 K/uL Monocytes # (Auto) 0.98 K/uL Eosinophils # (Auto) 0.00 K/uL Basophils # (Auto) 0.01 K/uL RDW Standard Deviation 54.0 fL RDW Coefficient of Variation 17.8 % Immature Granulocyte % (Auto) 1.5 % Immature Granulocyte # (Auto) 0.12 K/uL Nucleated RBC Absolute Count (auto) 0.02 K/uL Nucleated Red Blood Cells % 0.2 % Prothrombin Time 16.5 SECONDS Prothromb Time International Ratio 1.5 Sodium Level 136 mmol/L Potassium Level 3.2 mmol/L Chloride Level 91 mmol/L Carbon Dioxide Level 34 mmol/L Anion Gap 11.0 mmol/L Blood Urea Nitrogen 29 mg/dl Creatinine 1.40 mg/dl Est Creatinine Clear Calc Drug Dose 52.1 ml/min Estimated GFR () 57.0 Estimated GFR (Non- 49.1 BUN/Creatinine Ratio 21.0 Random Glucose 131 mg/dl Calcium Level 8.7 mg/dl Assessment and Plan This is a 76 year old male with PMH of 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 of atrial fibrillation on anticoagulation, recurrent lower extremity cellulitis, hx. of discitis, presents with difficulty breathing and abdominal pain, which was found to be a sigmoid volvulus Sigmoid Volvulus 2/3 remove rectal tube advance diet plan is for discharge back to [facility] today chance of twisting and another volvulus is high, patient aware, but refusing surgery laxatives/stool softeners on discharge 2/2 appreciate GI and surgical evaluations s/p colonoscopic decompression denies abdominal pain after colonoscopy will start clears and advance if okay with GI KUB in AM hemodynamically stable likely related to opioid overuse; may need pain management consultation for medication reconciliation Hypoxia Respiratory Distress CXR performed, no acute processes possibly related to opioid overuse has had problems with lethargy and hypoxia in the past bipap was initially started due to hypoxia, but that has been weaned off in no respiratory distress currently monitor pulse ox and uptitrate O2 as needed continue nebulizers PRN solu-medrol daily; will taper this in AM Hx. of Recurrent UTI in the setting of Neurogenic Bladder chronic indwelling catheter cultures are pending on Zosyn/Levaquin currently CAD restart ASA if no other intervention taking place Paroxysmal A. Fib rate controlled with sotalol restart Coumadin if no other surgical intervention is taking place Diastolic CHF hold diuretics, restart when tolerating PO intake DM2 hold oral agents insulin sliding scale will monitor BSGs with changing diet HTN continue Norvasc DVT ppx Coumadin FULL CODE d/c back to [facility] when medically stable
--- NOTE | 2016-08-15 13:15 | Discharge Instructions ---
Discharge Instructions Admission Reason for Admission: Sigmiod Volvulus Discharge Discharge Diagnosis / Problem: Sigmoid Volvulus; s/p colonoscopic decompression Discharge Goals Goal(s): Decrease discomfort, Improve function Activity Recommendations Activity Limitations: resume your previous activity . Instructions / Follow-Up Instructions / Follow-Up Please follow-up with primary care physician If abdominal pain recurs - should return to ER; high chance of re-volvulus Current Hospital Diet Patient's current hospital diet: Clear Liquid Diet Discharge Diet Recommended Diet: AHA Diet (Heart Healthy) Procedures Procedures Performed: Colonoscopy in OR Pending Studies Studies pending at discharge: no Medical Emergencies . Who to Call and When: Medical Emergencies: If at any time you feel your situation is an emergency, please call 911 immediately. . Non-Emergent Contact Non-Emergency issues call your: Primary Care Provider . . "Provider Documentation" section prepared by Angela Chung. VTE Core Measure Inpt VTE Proph given/why not?: Warfarin (Coumadin)
--- NOTE | 2016-08-15 13:16 | Discharge Summary ---
Discharge Summary Admission Date: Aug 12, 2016 at 18:04 Discharge Date: Aug 15, 2016 Discharge Disposition: intermediate facility Principal Diagnosis: Sigmoid Volvulus s/p colonoscopic decompression Medication Reconciliation Continued Medications: Acetaminophen (Tylenol) 325 Mg Tab 650 MG PO Q4H PRN for Pain Acetaminophen (Tylenol) 500 Mg Tab 500 MG PO TID, TAB Alum & Mag Hydrox-Simethicone (Rulox) 1 Yasmeen Yasmeen 30 ML PO QD PRN for Indigestion Amitriptyline HCl (Amitriptyline HCl) 10 Mg Tab 10 MG PO BID Amlodipine (Norvasc) 5 Mg Tab 5 MG PO DAILY, TAB Aspirin (Aspirin Chewable) 81 Mg Chew 81 MG PO QAM, TAB Baclofen (Baclofen) 20 Mg Tab 20 MG PO BID Bisacodyl (Bisacodyl) 10 Mg Sup 10 MG UT UD PRN for Constipation DAILY NEEDED FOR NO BOWEL MOVEMENT FOR 5 DAYS IF MOM INEFFECTIVE Diclofenac Sodium (Topical) (Diclofenac Sodium) 1 % Gel 1 APPLN TOP TID APPLY DIRECTED TO LEFT SHOULDER Duloxetine HCl (Duloxetine HCl) 60 Mg Cap 60 MG PO QAM Emollient (Moisturizing Cream) 1 Cre Cre 1 APPLN TOP HS APPLY DIRECTED TO DRY FEET Ferrous Sulfate (Ferrous Sulfate) 325 Mg Tab 325 MG PO BIDM Furosemide (Lasix) 20 Mg Tab 20 MG PO QAM, TAB Guaifenesin (Siltussin Sa) 100 Mg/5 Ml Syp 5 ML PO Q4H PRN for Cough Ipratropium-Albuterol (Duoneb) 3 Ml Nebu 1 TREATMENT INH Q6H for 3 Days, INHA PRESCRIBED 08/09/2016, ROUTINE FOR 3 DAYS Magnesium Hydroxide (Milk Of Magnesia) 30 Ml Susp 30 ML PO UD PRN for Constipation, ML ONE TIME DAILY FOR NO BOWEL MOVEMENT FOR 3 DAYS. ADMINISTER ON THE MORNING OF DAY 4. Metformin Hcl (Glucophage) 1,000 Mg Tab 1000 MG PO BID, TAB Metolazone (Zaroxolyn) 2.5 Mg Tab 2.5 MG PO 2XWK, TAB TAKE THIS MEDICATION EVERY THURSDAY AND THURSDAY Mupirocin (Bactroban 2% Oint) 66 Appln/22 Gm Oint 1 APPLN TOP BID APPLY DIRECTED TO SACRUM Nystatin (Nystatin Cream) 90 Appln/30 Gm Cr 1 APPLN TOP BID APPLY TO REDDENED/ABRADED AREAS OF BUTTOCKS Oxycodone HCl (Oxycodone HCl) 5 Mg Tab 5 MG PO Q4H PRN for Moderate to Severe Pain Oxygen (Oxygen) Gas 2 LITERS NA UD PRN for Shortness of Breath Pantoprazole Sodium (Protonix) 40 Mg Tab 40 MG PO QAM, TAB Polyvinyl Alcohol (Artificial Tears) 1.4 % Ross[place] 2 DROPS OPB UD INSTIL 2 DROPS INTO BOTH EYES AT THESE HOURS: 0900 1100 1300 1500 1700 1900 2100 Potassium Chloride (Potassium Chloride Er) 10 Meq Tab 20 MEQ PO TID, TAB Prednisone (Prednisone) 20 Mg Tab 40 MG PO UD for 5 Days, TAB PRESCRIBED 08/11/2016, TAKE DIRECTED FOR 5 DAYS Pregabalin (Lyrica) 50 Mg Cap 50 MG PO AMPM, CAP Pregabalin (Lyrica) 75 Mg Cap 75 MG PO QPM, CAP Rosuvastatin Calcium (Crestor) 10 Mg Tab 10 MG PO DAILY Saline (Deep Sea Nasal [place]) 0.65 % Spr 2 SPRAYS SABRINA Q4H PRN for DRYNESS Saline (Deep Sea Nasal [place]) 0.65 % Spr 2 SPRAYS SABRINA UD INSTILL 2 SPRAYS INTO EACH NOSTRIL AT THE FOLLOWING HOURS: 0700, 0900, 1100, 1500, 1700, 1900, 2100 AND 2300 HOURS Sennosides-Docusate Sodium ([place]-S) 1 Tab Tab 2 TABS PO DAILY Simethicone (Gas Relief Extra Strength) 125 Mg Chw 125 MG PO TID Sodium Phosphate/Biphosphate (Fleet Enema) Keila 1 EA UT UD PRN for Constipation, BTL DAILY NEEDED ON DAY 6 IF DULCOLAX SUPPOSITORY WAS INEFFECTIVE Sotalol Hcl (Sotalol Hcl) 80 Mg Tab 80 MG PO BID, TAB Warfarin Sodium (Coumadin) 2 Mg Tab 2 MG PO 6XWK, TAB TAKE 2 MG EVERY THURSDAY,THURSDAY,THURSDAY,THURSDAY,THURSDAY AND THURSDAY OR OTHERWISE DIRECTED TO TAKE BY ANTICOAGULATION CLINIC/MD Warfarin Sodium (Coumadin) 4 Mg Tab 4 MG PO WK, TAB TAKE 4 MG EVERY THURSDAY OR OTHERWISE DIRECTED TO TAKE BY ANTICOAGULATION CLINIC/MD Zinc Oxide (Topical) (Desitin) 40 % Oin 1 APPLN TOP BID APPLY TO SACRAL AREAS DIRECTED Discontinued Medications: Amoxicillin & Pot Clavulanate (Augmentin 875-125 mg) 1 Tab Tab 1 TAB PO BID for 10 Days, #20 TAB PRESCRIBED 08/11/2016, TAKE DIRECTED UNTIL GONE Admission Information HPI (per Admitting provider): 76 year old male with history of CAD, Paroxysmal A fib on Coumadin, Paraplegia, Neurogenic Bladder s/p Surgery for Spinal Cord Tumor, Recurrent UTI, DM, HTN presenting with abdominal pain. Patient lives at [facility] and follows with Dr. Davis. Patient at his baseline state of health until yesterday when he was noted to be wheezing and hypoxic. CXR showed possible atelectasis. He was started on Augmentin, Nebs and Prednisone and apparently was improved from that standpoint per [place] records. Today though, patient had increasing abdominal pain and was brought to the ER for evaluation. At the ED, CT abdomen showed possible sigmoid volvulus. GI and Gen Surg consulted. Patient was given Fentanyl at the ER, but was then noted to be "loopy" and hence was given Narcan. On my exam, patient was sleeping but easily rousable. He is oriented x 2. Denies abdominal pain, nausea. Denies dyspnea, has occasional cough and sputum, no fever/chills. No other symptoms. Physical Exam (per Admitting): General Appearance: WD/WN, no apparent distress Head: normocephalic, atraumatic Eyes: normal inspection, PERRL, EOMI, sclerae normal ENT: normal ENT inspection, hearing grossly normal, pharynx normal Neck: supple, no adenopathy, thyroid normal, no JVD, trachea midline Respiratory/Chest: chest non-tender, lungs clear, normal breath sounds, no respiratory distress, no accessory muscle use Cardiovascular: regular rate, rhythm, no edema, no murmur Abdomen/GI: normal bowel sounds, non tender, soft, + pertinent finding ( distended) Extremities/Musculoskelatal: + pertinent finding (mild lower leg edema and warmth, no tenderness) Neurologic/Psych: manager medicaid II-XII nml as tested, no motor/sensory deficits, alert , normal mood/affect, normal reflexes, oriented x 3 Skin: normal color, warm/dry Lymphatic: no adenopathy Hospital Course This is a 76 year old male with PMH of 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 of atrial fibrillation on anticoagulation, recurrent lower extremity cellulitis, hx. of discitis, presents with difficulty breathing and abdominal pain, which was found to be a sigmoid volvulus Sigmoid Volvulus 2/3 remove rectal tube advance diet plan is for discharge back to [facility] today chance of twisting and another volvulus is high, patient aware, but refusing surgery laxatives/stool softeners on discharge 2/2 appreciate GI and surgical evaluations s/p colonoscopic decompression denies abdominal pain after colonoscopy will start clears and advance if okay with GI KUB in AM hemodynamically stable likely related to opioid overuse; may need pain management consultation for medication reconciliation Hypoxia Respiratory Distress CXR performed, no acute processes possibly related to opioid overuse has had problems with lethargy and hypoxia in the past bipap was initially started due to hypoxia, but that has been weaned off in no respiratory distress currently monitor pulse ox and uptitrate O2 as needed continue nebulizers PRN solu-medrol daily; will taper this in AM Hx. of Recurrent UTI in the setting of Neurogenic Bladder chronic indwelling catheter cultures are pending on Zosyn/Levaquin currently CAD restart ASA if no other intervention taking place Paroxysmal A. Fib rate controlled with sotalol restart Coumadin if no other surgical intervention is taking place Diastolic CHF hold diuretics, restart when tolerating PO intake DM2 hold oral agents insulin sliding scale will monitor BSGs with changing diet HTN continue Norvasc DVT ppx Coumadin FULL CODE d/c back to [facility] when medically stable Total time spent on discharge = 42 minutes This includes examination of the patient, discharge planning, medication reconciliation, and communication with other providers. Discharge Instructions Please follow-up with primary care physician If abdominal pain recurs - should return to ER; high chance of re-volvulus
[2016-08-15 14:01] VITALS: PULSE 67; O2SAT 94
[2016-08-15 15:18] VITALS: BP 162/92; PULSE 67; TEMP 36.8; O2SAT 94
[2016-10-20] MEDS ORDERED: IPRASOL4 INH (13:01)
[2016-10-20] MEDS ORDERED: CEFD300C2 PO (13:01)
[2016-12-07] MEDS ORDERED: LVQ750 PO (13:51)
[2016-12-07] MEDS ORDERED: LCTX PO (13:51)
[2016-12-07] MEDS ORDERED: LORA-741 PO (13:53)
[2016-12-07] MEDS ORDERED: OXYC-609 PO (13:53)
[2017-04-11] MEDS ORDERED: AMLO-110 PO (05:24)
[2017-04-11] MEDS ORDERED: ASPI81TA28 PO (11:00)
[2017-04-11] MEDS ORDERED: METO2.5T PO (15:20)
[2017-04-11] MEDS ORDERED: POTA-74 PO (15:30)
[2017-04-11] MEDS ORDERED: POLY99.0 OPB (15:45)
[2017-04-11] MEDS ORDERED: SOTA80TA PO (16:09)
[2017-04-11] MEDS ORDERED: SENN-83 PO (16:40)
[2017-04-11] MEDS ORDERED: FERR325T5 PO (17:08)
[2017-04-11] MEDS ORDERED: FRS/40 PO (17:09)
[2017-04-11] MEDS ORDERED: LCTX PO (17:09)
[2017-04-11] MEDS ORDERED: NYSCR30 TOP (17:33)
[2017-04-11] MEDS ORDERED: TRAM-10 PO ×2 (17:33)
[2017-04-11] MEDS ORDERED: BISA-16 PO (17:33)
[2017-04-11] MEDS ORDERED: MOML PO (17:33)
[2017-04-11] MEDS ORDERED: LYR100 PO (17:33)
[2017-04-11] MEDS ORDERED: CMD25 PO (17:43)
== END 2016-08-15 15:54 | DRG 389 ==
LOC: ENRESERVTM → ENRESERVDT → EDBD 14:34 → C.EDB 14:35 → C.2E 18:04 → C.4E 08-14 09:51
PROVIDERS: ADMIT Internal Medicine; ATTEND Family Medicine
PROC: 0D7N8ZZ Dilation of Sigmoid Colon, Via Natural or Artificial Opening Endoscopic (ICD-10-PCS; principal; 2016-08-12 20:30)
DX: K56.2 Volvulus (principal); N39.0 Urinary tract infection, site not specified; G82.20 Paraplegia, unspecified; I25.10 Atherosclerotic heart disease of native coronary artery without angina pectoris; I48.0 Paroxysmal atrial fibrillation; Z79.01 Long term (current) use of anticoagulants; N31.9 Neuromuscular dysfunction of bladder, unspecified; E11.9 Type 2 diabetes mellitus without complications; I10 Essential (primary) hypertension; E78.5 Hyperlipidemia, unspecified; I25.2 Old myocardial infarction; M19.90 Unspecified osteoarthritis, unspecified site; Z87.891 Personal history of nicotine dependence; Z86.14 Personal history of Methicillin resistant Staphylococcus aureus infection; Z79.82 Long term (current) use of aspirin; Z79.899 Other long term (current) drug therapy; Z79.52 Long term (current) use of systemic steroids; E66.9 Obesity, unspecified; Z68.39 Body mass index [BMI] 39.0-39.9, adult; R09.02 Hypoxemia; R91.1 Solitary pulmonary nodule; Z96.641 Presence of right artificial hip joint; Z96.653 Presence of artificial knee joint, bilateral; Z87.440 Personal history of urinary (tract) infections; Z84.89 Family history of other specified conditions; Z83.3 Family history of diabetes mellitus; Z82.49 Family history of ischemic heart disease and other diseases of the circulatory system; Z80.42 Family history of malignant neoplasm of prostate; Z80.8 Family history of malignant neoplasm of other organs or systems; Z82.3 Family history of stroke

== ENCOUNTER 2016-08-16 19:17 | Emergency (ER) | payer OTHER, MEDICARE ==
[~2016-08-16] VITALS: Ht 175.3 cm; Wt 108.9 kg
[~2016-08-16 19:17] MED LIST changes: +ACET-1256 PO; +ALUM-76 PO; +ASPCH81X PO; -BCTRO EXT; +BCTROWC TOP; +BISA10SU5 PR; -BTP80 PO; -Boost Nutritional Drink PO; -CMD2 PO; +CRS10 PO; -DICL1GEL28 TOP; +DICL1GEL34 TOP; +FURO-85 PO; +GUAI100S75 PO; +IPRASOL4 INH; -LORA-741 PO; +LRS20 PO; +LYR50 PO; -MAGNSUS5 PO; -MENTOIN12 EXT; +METF-384 PO; +MOML PO; +NYSCR30 TOP; -NYST80OI TOP; +OXYC-609 PO; -OXYC1TAB3 PO; -POLY99.02 OPB; -POTA-327 PO; +PRED20TA PO; -PREG1CAP36 PO; +PREG75CA PO; +SODIENE PR; +WARF2TAB PO; +WARF4TAB PO; +ZINC40OI11 TOP; +[UNRECOGNIZED DRUG - CODE] TOP
[2016-08-16 19:20] VITALS: O2SAT 99
[2016-08-16 19:26] VITALS: TEMP 36.6; Ht 175.3 cm; Wt 108.9 kg
[2016-08-16 21:05] LABS: BASO % 0.1 %; BASO ABS # 0.01 K/uL (0-0.2); COMPLETE YES; EOS % 0.4 %; HEMATOCRIT 36.9 % (42-52); IG% 1.7 %; LYMPH % 12.1 %; MEAN CELL VOLUME 81.5 fL (80-100); MEAN CORPUSCULAR HEMOGLOBIN 25.8 pg (25-34); MEAN CORPUSCULAR HGB CONC 31.7 g/dl (32-36); MEAN PLATELET VOLUME 9.9 fL (7.4-10.4); MONO % 11.2 %; NEUT % 74.5 %; PLATELET COUNT 238 K/uL (130-400); RED BLOOD COUNT 4.53 M/uL (4.7-6.1); WHITE BLOOD COUNT 9.08 K/uL (4.8-10.8)
[2016-08-16 21:16] LABS: INR 1.3 (0.9-1.1); PARTIAL THROMBOPLASTIN RATIO 1.2; PROTHROMBIN TIME (PATIENT) 13.7 SECONDS (9.0-12.0)
[2016-08-16 21:25] LABS: ALT/SGPT 27 U/L (12-78); BLOOD UREA NITROGEN 42 mg/dl (7-18); BUN/CREATININE RATIO 30.1 (10-20); CALCIUM 8.2 mg/dl (8.5-10.1); CARBON DIOXIDE 30 mmol/L (21-32); CHLORIDE 95 mmol/L (98-107); GLUCOSE 133 mg/dl (70-99); MAGNESIUM 2.1 mg/dl (1.8-2.4); SODIUM 136 mmol/L (136-145)
[2016-08-16 21:36] LABS: ALKALINE PHOSPHATASE 83 U/L (45-117); AST/SGOT 25 U/L (15-37)
[2016-08-16 21:47] LABS: URINE APPEARANCE CLEAR (CLEAR); URINE BILIRUBIN NEG (NEG); URINE COLOR YELLOW; URINE EPITHELIAL CELL AUTO 20-30 /lpf (0-5); URINE NITRITE NEG (NEG); URINE SPECIFIC GRAVITY 1.019 (1.000-1.030); UROBILINOGEN NEG (NEG)
[2016-08-16 21:50] LABS: MANUAL MICROSCOPIC REQUIRED? NO; REVIEW REQ? NO
--- NOTE | 2016-08-16 21:59 | DIAGNOSTIC IMAGING REPORT ---
ABDOMEN 2VIEW W/PA CHEST RTN CLINICAL HISTORY: vomiting, chest congestion COMPARISON STUDY: 08/14/2016 FINDINGS: Interval removal of the rectal tube. Pre-existing changes of the pelvis and lumbar spine unchanged. No secondary signs of free air. Bowel pattern is nonobstructive. Lungs are considered clear. IMPRESSION: 1. Negative chest. 2. Interval removal of the rectal tube. 3. Current bowel pattern is nonobstructive Electronically signed by: Julian Vargas M.D. 08/16/2016 9:58 PM Dictated Date/Time: 08/16/2016 9:56 PM
[2016-08-17] MEDS ORDERED: WARFARIN SOD 1 MG TAB PO ONE
[2016-08-17 00:57] VITALS: BP 128/81; PULSE 84; O2SAT 95
--- NOTE | 2016-08-17 02:48 | EMERGENCY ROOM VISIT NOTE ---
History Report prepared by Victorino: Litzy Mcmanus Under the Supervision of: Dr. Juarez Bustos M.D. First contact with patient: 19:59 Chief Complaint: ILLNESS Stated Complaint: ALTERED MENTAL STATUS History of Present Illness The patient is a 76 year old male who presents to the Emergency Room with complaints of constant illness symptoms beginning today. Per the patient and his family, the patient is from [facility]. He was discharged yesterday from [facility] for a Sigmoid volvulus procedure. His blood work was normal at time of discharge. Gagandeep says that he was confused as to where he was and vomited thick green substance. The patient denies this. He states he feels tired but has no other complaints. The patient's family however states that he does not seem confused or lethargic. He does have a productive cough, congestion and is experiencing fatigue. The patient has a history of UTI's and bladder infections. When he becomes ill, his family notes he does experience AMS. Family does not think his mental status is altered right now. 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 Pt denies LOC, headache, fevers, chills, diaphoresis, visual changes, neck pain, chest pain, breathing difficulties, nausea, vomiting, abdominal pain, back pain, melena, hematochezia, urinary symptoms, numbness, new weakness, lymphadenopathy, rash, or other complaints. Source of History: patient Onset: today Position: other (global) Quality: other (illness) Timing: constant Associated Symptoms: + cough, + fatigue Note: Patient is congested. Review of Systems See HPI for pertinent positives and negatives. A total of ten systems were reviewed and were otherwise negative. 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 (14) UTI (urinary tract infection) (15) Warfarin anticoagulation Surgical Problems: (1) H/O inguinal hernia repair (2) H/O sinus surgery (3) Status post hip hemiarthroplasty (4) Status post removal right hip prosthesis (5) Status post total knee replacement Family History Cerebral aneurysm BROTHER Colon cancer SISTER Diabetes mellitus MOTHER Heart disease FATHER MOTHER Hypertension FATHER Prostate cancer FATHER Stroke FATHER Social History Smoking Status: Never Smoker Alcohol Use: none Drug Use: none Marital Status: single Housing Status: lives alone, alf Occupation Status: retired Current/Historical Medications Scheduled Acetaminophen (Tylenol), 500 MG PO TID Amitriptyline HCl (Amitriptyline HCl), 10 MG PO BID Amlodipine (Norvasc), 5 MG PO DAILY Aspirin (Aspirin Chewable), 81 MG PO QAM Baclofen (Baclofen), 20 MG PO BID Diclofenac Sodium (Topical) (Diclofenac Sodium), 1 APPLN TOP TID Duloxetine HCl (Duloxetine HCl), 60 MG PO QAM Emollient (Moisturizing Cream), 1 APPLN TOP HS Ferrous Sulfate (Ferrous Sulfate), 325 MG PO BIDM Furosemide (Lasix), 20 MG PO QAM Ipratropium-Albuterol (Duoneb), 1 TREATMENT INH Q6H Metformin Hcl (Glucophage), 1,000 MG PO BID Metolazone (Zaroxolyn), 2.5 MG PO 2XWK Mupirocin (Bactroban 2% Oint), 1 APPLN TOP BID Nystatin (Nystatin Cream), 1 APPLN TOP BID Pantoprazole Sodium (Protonix), 40 MG PO QAM Polyvinyl Alcohol (Artificial Tears), 2 DROPS OPB UD Potassium Chloride (Potassium Chloride Er), 20 MEQ PO TID Pregabalin (Lyrica), 50 MG PO DAILY Pregabalin (Lyrica), 75 MG PO QPM Rosuvastatin Calcium (Crestor), 10 MG PO DAILY Saline (Deep Sea Nasal [place]), 2 SPRAYS SABRINA UD Sennosides-Docusate Sodium ([place]-S), 2 TABS PO DAILY Simethicone (Gas Relief Extra Strength), 125 MG PO TID Sotalol Hcl (Sotalol Hcl), 80 MG PO BID Warfarin Sodium (Coumadin), 2 MG PO 6XWK Zinc Oxide (Topical) (Desitin), 1 APPLN TOP BID Scheduled PRN Acetaminophen (Tylenol), 650 MG PO Q4H PRN for Pain Alum & Mag Hydrox-Simethicone (Rulox), 30 ML PO QD PRN for Indigestion Bisacodyl (Bisacodyl), 10 MG MA UD PRN for Constipation Guaifenesin (Siltussin Sa), 5 ML PO Q4H PRN for Cough Magnesium Hydroxide (Milk Of Magnesia), 30 ML PO UD PRN for Constipation Oxycodone HCl (Oxycodone HCl), 5 MG PO Q4H PRN for Moderate to Severe Pain Oxygen (Oxygen), 2 LITERS NA UD PRN for Shortness of Breath Saline (Deep Sea Nasal [place]), 2 SPRAYS SABRINA Q4H PRN for DRYNESS Sodium Phosphate/Biphosphate (Fleet Enema), 1 EA MA UD PRN for Constipation Allergies Coded Allergies: Latex (Verified Allergy, Mild, UNSURE - FROM [facility], 08/16/16) Macrolides and Ketolides (Verified Allergy, Unknown, [facility], 08/16/16) Azithromycin (Verified Adverse Reaction, Mild, nausea, 08/16/16) with nausea and diarrhea Physical Exam Vital Signs Date Time Temp Pulse Resp B/P Pulse Ox O2 Delivery O2 Flow Rate FiO2 08/17/16 00:57 84 20 128/81 95 Nasal Cannula 2.0 08/16/16 23:40 68 08/16/16 23:30 70 20 151/102 96 Room Air 08/16/16 21:31 66 20 124/83 96 Room Air 08/16/16 19:30 67 08/16/16 19:26 36.6 80 20 142/102 99 Room Air 08/16/16 19:20 99 Room Air Physical Exam GENERAL: Awake, alert but tired-appearing, in no distress HENT: Normocephalic, atraumatic. Oropharynx unremarkable. EYES: Normal conjunctiva. Sclera non-icteric. NECK: Supple. No nuchal rigidity. FROM. No JVD. RESPIRATORY: Scattered rhonchi bilaterally. CARDIAC: Regular rate, normal rhythm. Extremities warm and well perfused. Pulses equal. ABDOMEN: Soft, non-distended. No tenderness to palpation. No rebound or guarding. No masses. RECTAL: Deferred. MUSCULOSKELETAL: Chest examination reveals no tenderness. The back is symmetrical on inspection without obvious abnormality. There is no CVA tenderness to palpation. No joint edema. LOWER EXTREMITIES: Paralysis of the legs. Calves are equal size bilaterally and non-tender. +1 edema. Chronic venous discoloration. NEURO: Normal sensorium. Left facial droop otherwise no other sensory motor deficit. SKIN: No rash or jaundice noted. Medical Decision & Procedures ER Provider Diagnostic Interpretation: X-ray: Per my interpretation, radiologist review. ABDOMEN 2VIEW W/PA CHEST RTN CLINICAL HISTORY: vomiting, chest congestion COMPARISON STUDY: 08/14/2016 FINDINGS: Interval removal of the rectal tube. Pre-existing changes of the pelvis and lumbar spine unchanged. No secondary signs of free air. Bowel pattern is nonobstructive. Lungs are considered clear. IMPRESSION: 1. Negative chest. 2. Interval removal of the rectal tube. 3. Current bowel pattern is nonobstructive Electronically signed by: Julian Vargas M.D. 08/16/2016 9:58 PM Dictated Date/Time: 08/16/2016 9:56 PM Laboratory Results 08/16/16 20:50 Red Blood Count 4.53, Mean Corpuscular Volume 81.5, Mean Corpuscular Hemoglobin 25.8, Mean Corpuscular Hemoglobin Concent 31.7, Mean Platelet Volume 9.9, Neutrophils (%) (Auto) 74.5, Lymphocytes (%) (Auto) 12.1, Monocytes (%) (Auto) 11.2, Eosinophils (%) (Auto) 0.4, Basophils (%) (Auto) 0.1, Neutrophils # (Auto ) 6.76, Lymphocytes # (Auto) 1.10, Monocytes # (Auto) 1.02, Eosinophils # (Auto ) 0.04, Basophils # (Auto) 0.01 08/16/16 20:50 Test 08/16/16 20:50 08/16/16 21:00 08/16/16 21:25 White Blood Count 9.08 K/uL (4.8-10.8) Red Blood Count 4.53 M/uL (4.7-6.1) Hemoglobin 11.7 g/dL (14.0-18.0) Hematocrit 36.9 % (42-52) Mean Corpuscular Volume 81.5 fL (80-100) Mean Corpuscular Hemoglobin 25.8 pg (25-34) Mean Corpuscular Hemoglobin Concent 31.7 g/dl (32-36) Platelet Count 238 K/uL (130-400) Mean Platelet Volume 9.9 fL (7.4-10.4) Neutrophils (%) (Auto) 74.5 % Lymphocytes (%) (Auto) 12.1 % Monocytes (%) (Auto) 11.2 % Eosinophils (%) (Auto) 0.4 % Basophils (%) (Auto) 0.1 % Neutrophils # (Auto) 6.76 K/uL (1.4-6.5) Lymphocytes # (Auto) 1.10 K/uL (1.2-3.4) Monocytes # (Auto) 1.02 K/uL (0.11-0.59) Eosinophils # (Auto) 0.04 K/uL (0-0.5) Basophils # (Auto) 0.01 K/uL (0-0.2) RDW Standard Deviation 53.9 fL (36.4-46.3) RDW Coefficient of Variation 18.2 % (11.5-14.5) Immature Granulocyte % (Auto) 1.7 % Immature Granulocyte # (Auto) 0.15 K/uL (0.00-0.02) Prothrombin Time 13.7 SECONDS (9.0-12.0) Prothromb Time International Ratio 1.3 (0.9-1.1) Activated Partial Thromboplast Time 29.9 SECONDS (21.0-31.0) Partial Thromboplastin Ratio 1.2 Anion Gap 11.0 mmol/L (3-11) Est Creatinine Clear Calc Drug Dose 56.3 ml/min Estimated GFR () 57.0 Estimated GFR (Non- 49.1 BUN/Creatinine Ratio 30.1 (10-20) Calcium Level 8.2 mg/dl (8.5-10.1) Magnesium Level 2.1 mg/dl (1.8-2.4) Total Bilirubin 0.3 mg/dl (0.2-1) Direct Bilirubin < 0.1 mg/dl (0-0.2) Aspartate Amino Transf (AST/SGOT) 25 U/L (15-37) Alanine Aminotransferase (ALT/SGPT) 27 U/L (12-78) Alkaline Phosphatase 83 U/L (45-117) Total Protein 7.3 gm/dl (6.4-8.2) Albumin 2.7 gm/dl (3.4-5.0) Lipase 105 U/L (73-393) Thyroid Stimulating Hormone (TSH) 3.760 uIu/ml (0.300-4.500) Influenza Type A Antigen Neg for Influ A (NEG) Influenza Type B Antigen Neg for Influ B (NEG) Urine Color YELLOW Urine Appearance CLEAR (CLEAR) Urine pH 5.0 (4.5-7.5) Urine Specific [place] 1.019 (1.000-1.030) Urine Protein NEG (NEG) Urine Glucose (UA) NEG (NEG) Urine Ketones NEG (NEG) Urine Occult Blood NEG (NEG) Urine Nitrite NEG (NEG) Urine Bilirubin NEG (NEG) Urine Urobilinogen NEG (NEG) Urine Leukocyte Esterase TRACE (NEG) Urine WBC (Auto) 1-5 /hpf (0-5) Urine RBC (Auto) 0-4 /hpf (0-4) Urine Hyaline Casts (Auto) 1-5 /lpf (0-5) Urine Epithelial Cells (Auto) 20-30 /lpf (0-5) Urine Bacteria (Auto) NEG (NEG) Laboratory results reviewed by me Medications Administered Medications (Trade) Dose Ordered Sig/Betzy Route Start Time Stop Time Status Last Admin Dose Admin Warfarin Sodium (Coumadin Tab) 2 mg NOW ONCE PO 08/17/16 00:00 08/17/16 00:01 DC 08/17/16 00:28 2 MG ECG Indication: other (illness) Rate (beats per minute): 67 Rhythm: normal sinus Findings: nonspecific-ST abn Change: T wave inversion anteriorly improved from August 12, 2016. ED Course 2025: The patient was evaluated in room B9. A complete history and physical exam was performed. 2354: The patient did receive his Coumadin dosage tonight. He is getting a little extra dosage due to subtherapeutic INR level. 0000: Coumadin Tab 2 mg PO. 0030: I reevaluated the patient. Discussed results and discharge instructions: he verbalized understanding and agreement. The patient is ready for discharge. Medical Decision Prior records/ancillary studies reviewed and summarized above. Nursing notes reviewed and agree them. Additional history obtained from family. The patient's history was concerning for altered mental status. Differential diagnosis: Etiologies such as metabolic, infection, hypo/hyperglycemia, electrolyte abnormalities, cardiac sources, intracerebral event, toxicologic, neurologic, as well as others were entertained. Physical examination: As above. ER treatment provided: IV Lock On reassessment the patient felt better. The patient desired discharge. Oral Coumadin given as his level is slightly subtherapeutic. 2 mg orally. Diagnostics interpretation by me: ECG: Normal sinus without ischemia or ectopy. The labs revealed mild anemia on CBC. No leukocytosis. INR was slightly subtherapeutic. His UA was unremarkable. Chemistry panel was unremarkable. LFTs and lipase are negative. Flu testing and TSH were negative. Imaging studies: X-rays as above. The patient has unremarkable diagnostic testing. He feels well and was without complaints. He denies any vomiting. He feels like he is just tired after being in the hospital for many days. Family states his mental status is baseline. Since his testing was negative and he feels well and I discussed discharge and close follow-up as an outpatient. The patient was very much in agreement and did not want stay in the hospital. I discussed this with his family. By the evaluation outlined above emergent etiologies such as infection, other abnormalities, cardiac sources, intracerebral event, toxologic, neurologic, abnormalities blood glucose, metabolic, as well as others were deemed relatively unlikely. The patient and family were informed about the findings as listed above. All questions were answered and they were pleased with the treatment. Return instructions were outlined and the patient was discharged in stable condition. Outpatient prescription management: No change Referral: The patient was referred back to his primary care physician for follow-up in 2 days for a recheck of the current condition. The chart was completed utilizing [employer] Speech voice recognition software. Grammatical errors, random word insertions, pronoun errors, and incomplete sentences are an occasional consequence of this system due to software limitations, ambient noise, and hardware issues. Any formal questions or concerns about the content, text, or information contained within the body of this dictation should be directly addressed to the physician for clarification. Impression Primary Impression: Weakness Additional Impression: Fatigue Scribe Attestation The scribe's documentation has been prepared under my direction and personally reviewed by me in its entirety. I confirm that the note above accurately reflects all work, treatment, procedures, and medical decision making performed by me. Departure Information Dispostion Being Evaluated By Hospitalist Lilo Mcleod M.D. (PCP) Forms HOME CARE DOCUMENTATION FORM, IMPORTANT VISIT INFORMATION, WORK / SCHOOL INSTRUCTIONS Additional Instructions The patient's chemistry panel, CBC, and urinalysis were unremarkable. Chest and abdominal imaging was negative. Flu testing was negative. The INR was slightly low and an extra 2 mg of Coumadin was given. Please have the level checked on Thursday with the Coumadin clinic. Continue other medications as prescribed. Return to the ER for worsening weakness, confusion, change in mental status, chest pain, difficulty breathing, fevers, vomiting, worsening of your condition , or as needed. Follow-up with the primary care doctor on Thursday. Problem Qualifiers
[2016-10-20] MEDS ORDERED: IPRASOL4 INH (13:01)
[2016-10-20] MEDS ORDERED: CEFD300C2 PO (13:01)
[2016-12-07] MEDS ORDERED: LCTX PO (13:51)
[2016-12-07] MEDS ORDERED: LVQ750 PO (13:51)
[2016-12-07] MEDS ORDERED: OXYC-609 PO (13:53)
[2016-12-07] MEDS ORDERED: LORA-741 PO (13:53)
[2017-04-11] MEDS ORDERED: AMLO-110 PO (05:24)
[2017-04-11] MEDS ORDERED: ASPI81TA28 PO (11:00)
[2017-04-11] MEDS ORDERED: METO2.5T PO (15:20)
[2017-04-11] MEDS ORDERED: POTA-74 PO (15:30)
[2017-04-11] MEDS ORDERED: POLY99.0 OPB (15:45)
[2017-04-11] MEDS ORDERED: SOTA80TA PO (16:09)
[2017-04-11] MEDS ORDERED: SENN-83 PO (16:40)
[2017-04-11] MEDS ORDERED: FERR325T5 PO (17:08)
[2017-04-11] MEDS ORDERED: FRS/40 PO (17:09)
[2017-04-11] MEDS ORDERED: LCTX PO (17:09)
[2017-04-11] MEDS ORDERED: LYR100 PO (17:33)
[2017-04-11] MEDS ORDERED: BISA-16 PO (17:33)
[2017-04-11] MEDS ORDERED: TRAM-10 PO ×2 (17:33)
[2017-04-11] MEDS ORDERED: MOML PO (17:33)
[2017-04-11] MEDS ORDERED: NYSCR30 TOP (17:33)
[2017-04-11] MEDS ORDERED: CMD25 PO (17:43)
== END 2016-08-17 01:01 | disposition home or self-care (01) ==
LOC: EDBD 19:17 → C.EDB 19:19
DX: R53.1 Weakness (principal); R53.83 Other fatigue; R79.1 Abnormal coagulation profile; I48.91 Unspecified atrial fibrillation; I25.10 Atherosclerotic heart disease of native coronary artery without angina pectoris; I25.2 Old myocardial infarction; I10 Essential (primary) hypertension; E78.5 Hyperlipidemia, unspecified; G82.20 Paraplegia, unspecified; Z79.899 Other long term (current) drug therapy; Z79.01 Long term (current) use of anticoagulants; Z79.82 Long term (current) use of aspirin; Z87.440 Personal history of urinary (tract) infections; Z83.3 Family history of diabetes mellitus; Z82.49 Family history of ischemic heart disease and other diseases of the circulatory system; Z80.0 Family history of malignant neoplasm of digestive organs; Z80.42 Family history of malignant neoplasm of prostate; Z82.3 Family history of stroke

== ENCOUNTER 2016-09-28 19:40 | Inpatient (IN) | payer OTHER, MEDICARE ==
[~2016-09-28] VITALS: Ht 165.1 cm; Wt 106.4 kg
[~2016-09-28 19:40] MED LIST changes: -PRED20TA PO; -WARF4TAB PO; -ZINC40OI11 TOP; +ZINC40OI13 TOP
[2016-09-28] MEDS ORDERED: SODIUM CHLORIDE 0.9% 1000ML 1,000 ML IV STA (20:04)
[2016-09-28] MEDS ORDERED: SODIUM CHLORIDE 0.9% 1000ML 1,000 ML IV ONE (20:04)
[2016-09-28] MEDS ORDERED: WARF4TAB8 PO (20:08)
[2016-09-28 20:21] LABS: MANUAL MICROSCOPIC REQUIRED? YES; REVIEW REQ? NO; URINE APPEARANCE SL CLOUDY (CLEAR); URINE BILIRUBIN NEG (NEG); URINE COLOR YELLOW; URINE NITRITE POS (NEG); URINE PH 6.5 (4.5-7.5); URINE SPECIFIC GRAVITY 1.015 (1.000-1.030); UROBILINOGEN NEG (NEG)
--- NOTE | 2016-09-28 20:35 | DIAGNOSTIC IMAGING REPORT ---
CHEST ONE VIEW PORTABLE CLINICAL HISTORY: CHEST PAIN dyspnea COMPARISON STUDY: 08/16/2016 FINDINGS: Platelike atelectasis both lung bases. Diaphragms are smooth. Mild pulmonary vascular congestion. IMPRESSION: Mild pulmonary venous congestion. Platelike atelectasis both lung bases. Electronically signed by: Julian Vargas M.D. 09/28/2016 8:34 PM Dictated Date/Time: 09/28/2016 8:33 PM
--- NOTE | 2016-09-28 20:38 | EMERGENCY ROOM VISIT NOTE ---
History Report prepared by Victorino: Walter Mcclelland Under the Supervision of: Dr. Ashwin Raphael M.D. First contact with patient: 19:52 Chief Complaint: ALTERED MENTAL STATUS Stated Complaint: AMS/POSS SEPSIS / FR [facility] Nursing Triage Summary: patient sent in from [facility] after staff noticed patient had been having decreased LOC and altered mental status. upon entry to ED patient is arousable and answers questions appropriately. patient does have redenned left lower extremity and states it has been that way since having a knee operation. History of Present Illness The patient is a 76 year old male who presents to the Emergency Room with complaints of sudden altered mental status occurring prior to arrival. The patients family sates that the patient was eating dinner, and he dropped his sandwich, and he did not even realize it. 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 Additionally, he is diabetic. The patient states that he is having some mild right lower quadrant abdominal pain. The patient denies any urinary symptoms, chest pain, cough, hematochezia, recent sickness, or falls. The family additionally states that the patient has a history of septic infections. Source of History: patient, family Onset: prior to arrival Position: other (global) Quality: other (altered mental status) Timing: other (sudden) Associated Symptoms: + abdominal pain, No chest pain, No cough, No hematochezia, No urinary symptoms Review of Systems See HPI for pertinent positives & negatives. A total of 10 systems reviewed and were otherwise negative. 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 Nurse's notes were reviewed and I agree with. Sigmoid volvulus which was decompressed in July Chronic anticoagulation with Coumadin Family History Cerebral aneurysm BROTHER Colon cancer SISTER Diabetes mellitus MOTHER Heart disease FATHER MOTHER Hypertension FATHER Prostate cancer FATHER Stroke FATHER Social History Smoking Status: Never Smoker Alcohol Use: none Drug Use: none Marital Status: single Housing Status: lives alone, care home Occupation Status: retired Current/Historical Medications Scheduled Acetaminophen (Tylenol), 500 MG PO TID Amitriptyline HCl (Amitriptyline HCl), 10 MG PO BID Amlodipine (Norvasc), 5 MG PO DAILY Aspirin (Aspirin Chewable), 81 MG PO QAM Baclofen (Baclofen), 20 MG PO BID Diclofenac Sodium (Topical) (Diclofenac Sodium), 1 APPLN TOP TID Duloxetine HCl (Duloxetine HCl), 60 MG PO QAM Emollient (Moisturizing Cream), 1 APPLN TOP HS Ferrous Sulfate (Ferrous Sulfate), 325 MG PO BIDM Furosemide (Lasix), 20 MG PO QAM Ipratropium-Albuterol (Duoneb), 1 TREATMENT INH Q6H Metformin Hcl (Glucophage), 1,000 MG PO BID Metolazone (Zaroxolyn), 2.5 MG PO 2XWK Pantoprazole Sodium (Protonix), 40 MG PO QAM Polyvinyl Alcohol (Artificial Tears), 2 DROPS OPB UD Potassium Chloride (Potassium Chloride Er), 20 MEQ PO TID Pregabalin (Lyrica), 75 MG PO BID Rosuvastatin Calcium (Crestor), 10 MG PO DAILY Saline (Deep Sea Nasal [place]), 2 SPRAYS SABRINA UD Sennosides-Docusate Sodium ([place]-S), 2 TABS PO DAILY Simethicone (Gas Relief Extra Strength), 125 MG PO TID Sotalol Hcl (Sotalol Hcl), 80 MG PO BID Warfarin Sod (Jantoven), 4 MG PO 3XWK Warfarin Sodium (Coumadin), 2 MG PO 4XWK Zinc Oxide (Topical) (Desitin), 1 APPLN TOP BID Scheduled PRN Acetaminophen (Tylenol), 650 MG PO Q4H PRN for Pain Alum & Mag Hydrox-Simethicone (Rulox), 30 ML PO QD PRN for Indigestion Magnesium Hydroxide (Milk Of Magnesia), 30 ML PO UD PRN for Constipation Oxycodone HCl (Oxycodone HCl), 5 MG PO Q4H PRN for Moderate to Severe Pain Oxygen (Oxygen), 2 LITERS NA UD PRN for Shortness of Breath Saline (Deep Sea Nasal [place]), 2 SPRAYS SABRINA Q4H PRN for DRYNESS Sodium Phosphate/Biphosphate (Fleet Enema), 1 EA CA UD PRN for Constipation Allergies Coded Allergies: Latex (Verified Allergy, Mild, UNSURE - FROM [facility] HOME, 09/28/16) Macrolides and Ketolides (Verified Allergy, Unknown, [facility], 09/28/16) Azithromycin (Verified Adverse Reaction, Mild, nausea, 09/28/16) with nausea and diarrhea Physical Exam Vital Signs Date Time Temp Pulse Resp B/P Pulse Ox O2 Delivery O2 Flow Rate FiO2 09/28/16 21:21 74 20 159/88 100 Nasal Cannula 4.0 09/28/16 20:13 71 09/28/16 19:55 73 09/28/16 19:43 36.5 82 20 162/95 94 Nasal Cannula 2.0 Physical Exam General: Non-ill appearing older male who Sleepy but arousable. Answers all questions appropriately. [place] or 3 HEENT: Normal cephalic atraumatic. Pupils are equal round and reactive to light. Extraocular movements are intact. Oropharynx is pink with moist mucous membranes. No swelling of the mouth lips or tongue. Neck: Supple with a midline trachea. No meningeal signs or stiffness, no JVD or bruits. No Stridor. Chest: Clear to auscultation bilaterally. No wheezes or rhonchi. No increased work of breathing. Heart: regular rate and rhythm. Abdomen: Minimally tender. Soft, nondistended without rebound guarding or rigidity. Cantrell Catheter in place. Extremities: No cyanosis clubbing. He is chronic bilateral lower extremity edema. No calf tenderness or assymetry Spine/Back. Non tender to palpation. No CVA tenderness Skin: Good turgor without rashes. Neurologic exam: Paraplegia in the legs. Cranial nerves two through 12 are intact. Medical Decision & Procedures ER Provider Diagnostic Interpretation: Radiology results as stated below per my review and radiologist interpretation: HEAD CT NONCONTRAST CT DOSE: 1784.44 mGy.cm HISTORY: Mental status change eval for altered mental status TECHNIQUE: Multiaxial CT images of the head were performed without the use of intravenous contrast. Comparison: 05/03/2016 Findings: Moderate mucosal thickening of all major sinuses. Mastoid air cells are clear. The calvarium and skull base are intact. The ventricles and sulci are within normal limits. There is no mass, hematoma, midline shift, or acute infarct. Mild age-related chronic small vessel change Impression: Chronic sinusitis. No acute intracranial abnormality. Electronically signed by: Julian Vargas M.D. 09/28/2016 9:09 PM Dictated Date/Time: 09/28/2016 9:07 PM CHEST ONE VIEW PORTABLE CLINICAL HISTORY: CHEST PAIN dyspnea COMPARISON STUDY: 08/16/2016 FINDINGS: Platelike atelectasis both lung bases. Diaphragms are smooth. Mild pulmonary vascular congestion. IMPRESSION: Mild pulmonary venous congestion. Platelike atelectasis both lung bases. Electronically signed by: Julian Vargas M.D. 09/28/2016 8:34 PM Dictated Date/Time: 09/28/2016 8:33 PM ABDOMEN AND PELVIS CT WITHOUT CONTRAST CT DOSE: 4368.63 mGy.cm HISTORY: Pain eval for RLA pain TECHNIQUE: Multiaxial CT images of the abdomen and pelvis were performed without contrast. COMPARISON STUDY: None. FINDINGS: Bibasilar atelectatic and/or infiltrative change. Findings of a mild hepatosplenomegaly. Fatty infiltration of liver. Gallbladder is negative for distention. Pancreas is uniform. Kidneys negative for hydronephrosis. Destructive changes of the right hip and associated acetabulum are stable to slightly progressive. Bladder is midline] tube has been removed. There may be an early developing sigmoid volvulus. Maximum sigmoid diameter is 6.5 cm. Compression deformities of the thoracolumbar region are stable. IMPRESSION: 1. Destructive process involving the right hip and right acetabulum slightly progressive from the prior study. 2. Mild increase in distention of the mid sigmoid which may indicate an early or developing recurrent volvulus. 3. Stable abdominal and pelvic adenopathy. 4. Stable compression deformities of the thoracolumbar spine. 5. Stable hepatosplenomegaly. 6. Mild bibasilar atelectatic and/or infiltrative changes Electronically signed by: Julian Vargas M.D. 09/28/2016 9:16 PM Dictated Date/Time: 09/28/2016 9:09 PM Laboratory Results Test 09/28/16 19:45 09/28/16 20:32 09/28/16 20:38 09/28/16 20:41 Urine Color YELLOW Urine Appearance SL CLOUDY (CLEAR) Urine pH 6.5 (4.5-7.5) Urine Specific [place] 1.015 (1.000-1.030) Urine Protein 2+ (NEG) Urine Glucose (UA) NEG (NEG) Urine Ketones NEG (NEG) Urine Occult Blood 3+ (NEG) Urine Nitrite POS (NEG) Urine Bilirubin NEG (NEG) Urine Urobilinogen NEG (NEG) Urine Leukocyte Esterase LARGE (NEG) Urine RBC 10-30 /hpf (0-4) Urine WBC >30 /hpf (0-5) Urine Epithelial Cells 10-20 /lpf (0-5) Urine Renal Cells 0-5 /lpf (FEW) Urine Bacteria 4+ (NEG) Activated Partial Thromboplast Time 57.0 SECONDS (21.0-31.0) Partial Thromboplastin Ratio 2.2 Total Bilirubin 0.2 mg/dl (0.2-1) Direct Bilirubin < 0.1 mg/dl (0-0.2) Aspartate Amino Transf (AST/SGOT) 12 U/L (15-37) Alanine Aminotransferase (ALT/SGPT) 14 U/L (12-78) Alkaline Phosphatase 124 U/L (45-117) Total Protein 8.4 gm/dl (6.4-8.2) Albumin 2.7 gm/dl (3.4-5.0) Lipase 221 U/L (73-393) Bedside Troponin I 0.000 ng/ml (0-0.045) Bedside Lactic Acid Venous 2.22 mmol/L (0.90-1.70) Lab results as reviewed by me. Medications Administered Medications (Trade) Dose Ordered Sig/Betzy Route Start Time Stop Time Status Last Admin Dose Admin Sodium Chloride 1,000 ml @ 999 mls/hr Q1H1M STAT IV 09/28/16 20:04 09/28/16 21:59 DC 09/28/16 20:04 999 MLS/HR Sodium Chloride (Nss 1000ml) 1,000 ml @ 150 mls/hr Q6H40M ONCE IV 09/28/16 20:04 09/28/16 21:59 DC 09/28/16 20:04 150 MLS/HR Piperacillin Sod/ Tazobactam Sod (Zosyn Iv) 4.5 gm NOW STAT IV 09/28/16 21:24 09/28/16 21:25 DC 09/28/16 21:36 4.5 GM ECG Indication: altered mental status Rate (beats per minute): 79 Rhythm: normal sinus Findings: nonspecific-ST abn, no ectopy, other (T wave abnormalities) Comparison ECG Date: 08/16/16 Change: no significant change ED Course 1951: Past medical records reviewed. The patient was evaluated in room C5, and a complete history and physical examination were performed. 2003: Sodium Chloride 1000 ml @ 150 mls/hr IV, Sodium Chloride 1000 ml @ 999 mls /hr IV 2123: Zosyn 4.5gm IV 2125: I reevaluated the patient, and he was resting. 2129: I discussed the patient's case with Dr. Aguilar. He is going to evaluate the patient for further treatment Medical Decision Differentials include, but are not limited to; sepsis, intracranial process, CVA , UTI, arrhythmia, electrolyte or metabolic abnormality. This patient comes in as described above. He was placed in room C5. He has had altered mental status he is sleepy but arousable answers questions. This is more sleepy than usual he has a very complicated medical history. He is afebrile and has stable vital signs here . he may have had a little bit of lower abdominal pain but on exam he is minimally tender. I reviewed his history and he had a recent sigmoid volvulus and certainly that is concern as well. I talked to the son at length and he said when he had volvulus in July , he had severe pain and vomiting which he does not have now. IV access established ,blood work was obtained including lactic acid blood cultures. Urinalysis and culture obtained and a CAT scan of his head and abdomen. He has no acute focal neurologic deficits to suggest stroke. His CT of his head was unremarkable. He has no acute electrolyte or metabolic abdomen otherwise. Lactic acid is mildly elevated. He was hydrated normal saline. His urinalysis does suggest UTI however he has chronic Cantrell catheter. He was given Zosyn IV to cover this and other possibilities. The CAT scan of his abdomen suggest a possible recurrence of a sigmoid volvulus here on exam besides being somnolent he really has no other symptoms. I did consult Dr. Boykin to see him in the emergency department. He think he needs to be admitted for hydration and antibiotics GI consultation and further evaluation. This could be an evolving process or recurrent volvulous. The patient's son is happy the plan will be admitted for these measures. Consults Time Called: 2127 Consulting Physician: Dr. Aguilar Returned Call: 2129 I discussed the patient's case with Dr. Aguilar. He is going to evaluate the patient for further treatment Impression Primary Impression: Altered mental status Additional Impressions: Sepsis Sigmoid volvulus UTI (urinary tract infection) Scribe Attestation The scribe's documentation has been prepared under my direction and personally reviewed by me in its entirety. I confirm that the note above accurately reflects all work, treatment, procedures, and medical decision making performed by me. Departure Information Dispostion Being Evaluated By Hospitalist Lilo Mcleod M.D. (PCP) Patient Instructions My [facility] Problem Qualifiers
[2016-09-28 20:46] LABS: URINE BACTERIA 4+ (NEG); URINE WBC >30 /hpf (0-5)
[2016-09-28 20:49] LABS: BASO % 0.2 %; BASO ABS # 0.02 K/uL (0-0.2); COMPLETE YES; EOS % 1.3 %; HEMATOCRIT 33.6 % (42-52); IG% 0.3 %; LYMPH ABS # 0.97 K/uL (1.2-3.4); MEAN CELL VOLUME 78.9 fL (80-100); MEAN CORPUSCULAR HEMOGLOBIN 25.6 pg (25-34); MEAN CORPUSCULAR HGB CONC 32.4 g/dl (32-36); MEAN PLATELET VOLUME 9.1 fL (7.4-10.4); MONO % 8.7 %; NEUT % 79.5 %; PLATELET COUNT 216 K/uL (130-400); RED BLOOD COUNT 4.26 M/uL (4.7-6.1)
[2016-09-28 21:08] LABS: INR 2.1 (0.9-1.1); PARTIAL THROMBOPLASTIN RATIO 2.2; PROTHROMBIN TIME (PATIENT) 23.2 SECONDS (9.0-12.0)
[2016-09-28 21:10] LABS: ALT/SGPT 14 U/L (12-78); BLOOD UREA NITROGEN 24 mg/dl (7-18); BUN/CREATININE RATIO 18.5 (10-20); CALCIUM 8.9 mg/dl (8.5-10.1); CARBON DIOXIDE 30 mmol/L (21-32); CHLORIDE 90 mmol/L (98-107); GLUCOSE 137 mg/dl (70-99); POTASSIUM 4.6 mmol/L (3.5-5.1); SODIUM 128 mmol/L (136-145)
--- NOTE | 2016-09-28 21:10 | DIAGNOSTIC IMAGING REPORT ---
HEAD CT NONCONTRAST CT DOSE: 1784.44 mGy.cm HISTORY: Mental status change eval for altered mental status TECHNIQUE: Multiaxial CT images of the head were performed without the use of intravenous contrast. Comparison: 05/03/2016 Findings: Moderate mucosal thickening of all major sinuses. Mastoid air cells are clear. The calvarium and skull base are intact. The ventricles and sulci are within normal limits. There is no mass, hematoma, midline shift, or acute infarct. Mild age-related chronic small vessel change Impression: Chronic sinusitis. No acute intracranial abnormality. Electronically signed by: Julian Vargas M.D. 09/28/2016 9:09 PM Dictated Date/Time: 09/28/2016 9:07 PM
[2016-09-28 21:13] LABS: ALKALINE PHOSPHATASE 124 U/L (45-117); AST/SGOT 12 U/L (15-37)
--- NOTE | 2016-09-28 21:17 | DIAGNOSTIC IMAGING REPORT ---
ABDOMEN AND PELVIS CT WITHOUT CONTRAST CT DOSE: 4368.63 mGy.cm HISTORY: Pain eval for RLA pain TECHNIQUE: Multiaxial CT images of the abdomen and pelvis were performed without contrast. COMPARISON STUDY: None. FINDINGS: Bibasilar atelectatic and/or infiltrative change. Findings of a mild hepatosplenomegaly. Fatty infiltration of liver. Gallbladder is negative for distention. Pancreas is uniform. Kidneys negative for hydronephrosis. Destructive changes of the right hip and associated acetabulum are stable to slightly progressive. Bladder is midline] tube has been removed. There may be an early developing sigmoid volvulus. Maximum sigmoid diameter is 6.5 cm. Compression deformities of the thoracolumbar region are stable. IMPRESSION: 1. Destructive process involving the right hip and right acetabulum slightly progressive from the prior study. 2. Mild increase in distention of the mid sigmoid which may indicate an early or developing recurrent volvulus. 3. Stable abdominal and pelvic adenopathy. 4. Stable compression deformities of the thoracolumbar spine. 5. Stable hepatosplenomegaly. 6. Mild bibasilar atelectatic and/or infiltrative changes Electronically signed by: Julian Vargas M.D. 09/28/2016 9:16 PM Dictated Date/Time: 09/28/2016 9:09 PM
[2016-09-28] MEDS ORDERED: PIPERACILLIN/TAZOBACTAM 4.5 GM/100ML D5W IV STA (21:24)
[2016-09-28 22:32] LABS: ARTERIAL BLD GAS O2 SATURATION 95.2 % (90-95); ARTERIAL BLOOD GAS BASE EXCESS 6.3 mEq/L (-9-1.8); ARTERIAL BLOOD GAS HCO3 34 mmol/L (19-24); ARTERIAL BLOOD GAS PO2 86 mm/Hg (80-95); ARTERIAL BLOOD GAS pH 7.34 (7.35-7.45)
[2016-09-28 22:34] LABS: ALLEN TEST POS (POS); O2 ADMINISTRATION 4.5L
[2016-09-28] MEDS ORDERED: ALBUT/IPRATROP 3MG/0.5MG NEB 3 ML VIAL INH STA (22:48)
[2016-09-28] MEDS ORDERED: SOTALOL HCL 80 MG TAB PO ONE (22:49)
[2016-09-28 22:59] LABS: MAGNESIUM 2.3 mg/dl (1.8-2.4); THYROID STIMULATING HORMONE 3.62 uIu/ml (0.300-4.500)
[2016-09-28] MEDS ORDERED: SOD PHOSPHATE/SOD BIPHOSPHATE ENEMA 132 ML BTL PR PRN (23:00)
[2016-09-28] MEDS ORDERED: DEXTROSE 50% 50 ML SYR IV PRN (23:00)
[2016-09-28] MEDS ORDERED: PROMETHAZINE HCL INJ 12.5 MG in SODIUM CHLORIDE 0.9% 50ML 50 ML IV PRN (23:00)
[2016-09-28] MEDS ORDERED: ALBUT/IPRATROP 3MG/0.5MG NEB 3 ML VIAL INH PRN (23:00)
[2016-09-28] MEDS ORDERED: GLUCOSE 40% GEL 15 GM TUBE PO PRN (23:00)
[2016-09-28] MEDS ORDERED: GLUCAGON FOR INJ 1 MG VIAL SQ PRN (23:00)
[2016-09-28] MEDS ORDERED: GLUCOSE 10 TABS/TUBE PO PRN (23:00)
[2016-09-28] MEDS ORDERED: ONDANSETRON INJ 2 MG/ML 2 ML VIAL IV PRN (23:00)
[2016-09-28] MEDS ORDERED: NITROGLYCERIN 0.4 MG SL PER TAB CHARGE SL PRN (23:00)
[2016-09-28 23:18] VITALS: BP 145/94; PULSE 80; TEMP 36.9; O2SAT 97; Ht 165.1 cm; Wt 106.4 kg
[2016-09-28] MEDS ORDERED: PIPERACILL/TAZOBAC CONSULT ACTIVE PRN (23:31)
[2016-09-29] VITALS (14 sets, daily range): BP systolic 116–141; BP diastolic 71–83; PULSE 55–79; TEMP 36.5–36.9; O2SAT 92–100
[2016-09-29] MEDS: SODIUM CHLORIDE 0.9% 1000ML 1,000 ML IV SCH ×2 (00:08→16:31)
[2016-09-29] MEDS ORDERED: LEVALBUTEROL/IPRATROPIUM NEB INH SCH (03:00)
[2016-09-29] MEDS: IPRATROPIUM BROMIDE NEB SOLN 0.02% 2.5 ML VIAL INH SCH ×4 (03:19→19:39)
[2016-09-29] MEDS: LEVALBUTEROL 1.25MG/0.5ML NEB INH SCH ×4 (03:19→19:39)
--- NOTE | 2016-09-29 03:57 | HISTORY & PHYSICAL EXAMINATION ---
DATE OF ADMISSION: 09/28/2016 PRIMARY CARE PHYSICIAN: Dr. Lilo Davis. History obtained from records and the patient's cousin, Mr. Dagoberto Gould. Limited history obtained secondary to disorientation and lethargic state. Patient is a [facility] resident. HISTORY OF PRESENT ILLNESS: Medical history significant for chronic resp failure home O2 prn as per records, chronic diastolic HF (EF 60-65% 2017), CAD as per records, hypertension, paroxysmal Afib, on anticoagulation, chronic anemia (baseline hemoglobin 11), recurrent UTIs secondary to neurogenic bladder secondary to spinal cord tumor surgery, history of paraplegia, chronic indwelling Cantrell catheter, DM2 on oral meds, Lyme disease sp tx hx of MRSA, history of sigmoid volvulus as per records. Recent confinement last month for sigmoid volvulus, status post colonic decompression w/ rectal tube placement. As per records, chance of twisting another volvulus was high. Patient refused surgery as per note. As per records, last few days, the patient was noted to have LE swelling by staff. Diuretic dose increased. Outpatient chest x-ray a few days ago showed some congestion. Yesterday, the patient noted to have decreased responsiveness, increased confusion, O2 sats 88 on room air. As per cousin, the patient somewhat distractible the last few days. Patient complaining of abdominal discomfort, no nausea, no witnessed vomiting, Belly more distended as per cousin. Patient brought to the Emergency Room. Given Zosyn for possible UTI. MEDICAL HISTORY: As above. PAST SURGICAL HISTORY: Hernia repair, sinus surgery, hip surgery, knee replacement. HOME MEDICATIONS: Include Protonix, artificial tears, potassium chloride, Lyrica, Crestor, sotalol, Fleet enema, Coumadin, loose stools noted, Jantoven, Desitin, Protonix, Senokot-S, DuoNeb, Glucophage, Zaroxolyn, oxycodone, oxygen, baclofen, diclofenac, duloxetine, ferrous sulfate, Lasix, aspirin, Tylenol, amitriptyline, Norvasc. ALLERGIES: AZITHROMYCIN, LATEX, MACROLIDE, KETOLIDE. FAMILY HISTORY: Diabetes, heart disease, brain aneurysm. PERSONAL SOCIAL HISTORY: Past tobacco abuse. No chronic intake of alcoholic beverages. [facility] resident. Closest family is cousin. REVIEW OF SYSTEMS: Could not be reliably obtained. PHYSICAL EXAMINATION: VITAL SIGNS: Blood pressure was noted to be 162/95, later 150/80, pulse rate 69, RR 20, temperature 36.9, sats 94 on 2 liters. GENERAL: Noted to be lethargic, disoriented. No respiratory distress. SKIN: Pallor. HEENT: Pale palpebral conjunctivae. Dry mucosa. NECK: Short neck. CHEST: Rhonchi. HEART: Regular rate and rhythm. ABDOMEN: marked distention, some tenderness. EXTREMITIES: Minimal LE edema. no tenderness NEUROLOGIC: disoriented, restless. Old facial asymmetry. LABORATORY DATA: Hemoglobin 10.9, hematocrit 32.6, white cell count 9.7, platelets 216. Sodium 128, potassium 4.6, chloride 90, CO2 of 30, BUN 20, creatinine 1.3, glucose 137. Lipase was normal. BNP was normal. INR was noted to be 2.1. trop 0 Hemoglobin A1c from 03/[address] head, no acute pathology. Chest x-ray, minimal congestion, atelectasis. CT abdomen and pelvis, destructive process right hip progressing, mild increase distention midsigmoid which may indicate early or developing recurrent volvulus. UA, nitrite positive. ASSESSMENT: 1. Encephalopathy multifactorial : Hyponatremia, clinical dehydration, possibly from recent [facility] at the prison for LE swelling complicated urinary tract infection (chronic indwelling Cantrell 2 to neurogenic bladder secondary to spinal cord tumor surgery) No sepsis. Abdominal pain, distention, possible developing recurrent volvulus on CT. (px refused surgery recommendation as per records) home neuropsychotropic/narcotics/anti-spasmodic meds 2. Chronic diastolic failure. The patient seems to be on dry side. 3. chronic resp failure as per records, px prone to CO2 retention 4. Coronary artery disease as per records. 5. HTN, slightly elevated 6. PAF, NSR, INR tx 7. DM2, on oral meds, well controlled as of recent A1c last year. 8. Acute on chronic anemia. Hemoglobin is up. No overt bleeding for now. 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 Past tobacco abuse. 11. Loose stools, ro Clostridium difficile diarrhea. 12. hx MRSA as per records PLAN: PCU. Hold home diuretics for now. Careful correction of sodium. Follow urine cultures, Zosyn. Hold neuro psychotropic/anti-spasmodic meds until mentation at baseline GI consult RE abdominal distention, possible recurrent volvulus. Patient known to Dr. Rodriguez. stool cdif ISS BG goal 140-180 Patient due for hemoglobin A1c check. Hold Coumadin for now. RE px may need intervention for poss volvulus DVT prophylaxis, SCDs while off Coumadin and INR less than 2. DNR as per cousin/POA, Dagobertovinny Gould, contact number [phone]. [facility]
[2016-09-29] MEDS: PIPERACILL/TAZOBAC IV 4.5 GM in DEXTROSE 5% 100ML IV SCH ×3 (04:06→20:14)
[2016-09-29] MEDS ORDERED: HALOPERIDOL 1 MG TAB PO PRN (05:45)
[2016-09-29] MEDS ORDERED: HALOPERIDOL LACTATE 5 MG/ML 1 ML VIAL IM PRN (05:45)
[2016-09-29 06:43] LABS: BASO % 0.1 %; BASO ABS # 0.01 K/uL (0-0.2); COMPLETE YES; EOS % 0.8 %; IG% 0.3 %; LYMPH % 7.4 %; LYMPH ABS # 0.87 K/uL (1.2-3.4); MEAN CELL VOLUME 78.8 fL (80-100); MEAN CORPUSCULAR HEMOGLOBIN 25.1 pg (25-34); MEAN CORPUSCULAR HGB CONC 31.9 g/dl (32-36); MEAN PLATELET VOLUME 9.1 fL (7.4-10.4); MONO % 9.3 %; NEUT % 82.1 %; PLATELET COUNT 215 K/uL (130-400); RED BLOOD COUNT 4.06 M/uL (4.7-6.1); WHITE BLOOD COUNT 11.77 K/uL (4.8-10.8)
[2016-09-29 06:52] LABS: INR 2.1 (0.9-1.1); PROTHROMBIN TIME (PATIENT) 22.7 SECONDS (9.0-12.0)
[2016-09-29] MEDS: INSULIN ASPART 100 UNITS/ML 3 ML PEN SC SCH ×4 (07:00→20:00)
[2016-09-29 07:08] LABS: ESTIMATED AVERAGE GLUCOSE 169 mg/dl; HA1C FLAG Normal (Normal)
[2016-09-29 07:15] LABS: BLOOD UREA NITROGEN 24 mg/dl (7-18); BUN/CREATININE RATIO 18.1 (10-20); CALCIUM 8.9 mg/dl (8.5-10.1); CARBON DIOXIDE 34 mmol/L (21-32); CHLORIDE 90 mmol/L (98-107); GLUCOSE 138 mg/dl (70-99); SODIUM 131 mmol/L (136-145)
[2016-09-29] MEDS: FERROUS SULFATE 325 MG TAB PO SCH ×2 (08:21→16:30)
[2016-09-29] MEDS: AMLODIPINE BESYLATE 5 MG TAB PO SCH (08:23)
[2016-09-29] MEDS: PANTOprazole SOD 40 MG TAB PO SCH (08:23)
[2016-09-29] MEDS: SOTALOL HCL 80 MG TAB PO SCH ×2 (08:23→21:18)
[2016-09-29] MEDS: ASPIRIN 81 MG CHEW PO SCH (08:23)
[2016-09-29] MEDS: DOCUSATE SODIUM/SENNA 50/8.6MG TAB PO SCH (08:24)
--- NOTE | 2016-09-29 09:37 | Gastrointestinal Consultation ---
Gastrointestinal Consultation Date of Consultation: Sep 29, 2016 Consulting Physician: Kp Reason for Consultation: ? volvulus History of Present Illness Patient is a 76 year old male with PMH significant for sigmoid volvulus w/ colonic decompression last month, HTN, CAD, DMT2, AFIB on anticoagulation, anemia of chronic disease, spinal cord tumor, paraplegia, neurogenic bladder, who presents to the ED for evaluation of worsening edema and altered LOC. GI was consulted for evaluation of generalized abdominal pain, worse in RLQ and questionable volvulus on CT ABD. Patient is a poor historian and there is no family at bedside. During assessment he is drowsy with limited interaction. Denies fever, chills, chest pain, nausea, vomiting. CT abd 09/28/16: Destructive changes of the right hip and associated acetabulum are stable to slightly progressive. Bladder is midline] tube has been removed. There may be an early developing sigmoid volvulus. Maximum sigmoid diameter is 6.5 cm. Compression deformities of the thoracolumbar region are stable. Past Medical/Surgical History Medical Problems: (1) Altered mental status Status: Acute (2) Altered mental status Status: Acute (3) Altered mental status Status: Acute (4) Altered mental status Status: Acute (5) Diffuse abdominal pain Status: Acute (6) Dislodged Cantrell catheter Status: Acute (7) Fever Status: Acute (8) Hematuria Status: Acute (9) Hyperglycemia Status: Acute (10) Hypomagnesemia Status: Acute (11) Hypoxia Status: Acute (12) Hypoxia Status: Acute (13) Lactic acid acidosis Status: Acute (14) Left lower lobe pneumonia Status: Acute (15) Leukocytosis Status: Acute (16) Pneumonia Status: Acute (17) Renal insufficiency Status: Acute (18) Sepsis Status: Acute (19) Sigmoid volvulus Status: Acute (20) UTI (urinary tract infection) Status: Acute (21) UTI (urinary tract infection) Status: Acute (22) UTI (urinary tract infection) Status: Acute (23) UTI (urinary tract infection) Status: Acute Family History Cerebral aneurysm BROTHER Colon cancer SISTER Diabetes mellitus MOTHER Heart disease FATHER MOTHER Hypertension FATHER Prostate cancer FATHER Stroke FATHER Social History Smoking Status: Never Smoker Alcohol Use: none Drug Use: none Marital Status: single Housing Status: lives alone, skilled nursing Occupation Status: retired Allergies Coded Allergies: Latex (Verified Allergy, Mild, UNSURE - FROM [facility] [place], 09/28/16) Macrolides and Ketolides (Verified Allergy, Unknown, [facility], 09/28/16) Azithromycin (Verified Adverse Reaction, Mild, nausea, 09/28/16) with nausea and diarrhea Current Medications Home Meds and Scripts Medications Dose Route/Sig Max Daily Dose Days Date Category Dose Instructions Jantoven (Warfarin Sodium) 4 Mg Tab 4 Mg PO 3XWK 09/28/16 Reported Coumadin (Warfarin Sodium) 2 Mg Tab 2 Mg PO 4XWK 08/12/16 Reported TAKE 2 MG EVERY THURSDAY,THURSDAY,THURSDAY, THURSDAY OR OTHERWISE DIRECTED TO TAKE BY ANTICOAGULATION CLINIC/ Sotalol Hcl 80 Mg Tab 80 Mg PO BID 08/12/16 Reported Rulox (Alum & Mag Hydrox-Simethicone) 1 Yasmeen Yasmeen 30 Ml PO QD PRN 08/12/16 Reported Desitin (Zinc Oxide (Topical)) 40 % Oin 1 Appln TOP BID 08/12/16 Reported APPLY TO SACRAL AREAS DIRECTED Diclofenac Sodium (Diclofenac Sodium (Topical)) 1 % Gel 1 Appln TOP TID 08/12/16 Reported APPLY DIRECTED TO LEFT SHOULDER Lyrica (Pregabalin) 75 Mg Cap 75 Mg PO BID 08/12/16 Reported Duoneb (Ipratropium-Albuterol) 3 Ml Nebu 1 Treatment INH Q6H 3 08/12/16 Reported PRESCRIBED 08/09/2016, ROUTINE FOR 3 DAYS Deep Sea Nasal [place] (Saline) 0.65 % Spr 2 Sprays SABRINA UD 08/12/16 Reported INSTILL 2 SPRAYS INTO EACH NOSTRIL AT THE FOLLOWING HOURS: 0700, 0900, 1100, 1500, 1700, 1900, 2100 AND 2300 HOURS Tylenol (Acetaminophen) 500 Mg Tab 500 Mg PO TID 08/12/16 Reported Artificial Tears (Polyvinyl Alcohol) 1.4 % Rossy 2 Drops OPB UD 08/12/16 Reported INSTIL 2 DROPS INTO BOTH EYES AT THESE HOURS: 0900 1100 1300 1500 1700 1900 2100 Potassium Chloride Er (Potassium Chloride) 10 Meq Tab 20 Meq PO TID 08/12/16 Reported Moisturizing Cream (Emollient) 1 Cre Cre 1 Appln TOP HS 08/12/16 Reported APPLY DIRECTED TO DRY FEET Oxycodone HCl 5 Mg Tab 5 Mg PO Q4H PRN 08/12/16 Reported Milk Of Magnesia (Magnesium Hydroxide) 30 Ml Susp 30 Ml PO UD PRN 08/12/16 Reported ONE TIME DAILY FOR NO BOWEL MOVEMENT FOR 3 DAYS. ADMINISTER ON THE MORNING OF DAY 4. Deep Sea Nasal [place] (Saline) 0.65 % Spr 2 Sprays SABRINA Q4H PRN 08/12/16 Reported Gas Relief Extra Strength (Simethicone) 125 Mg Chw 125 Mg PO TID 04/29/16 Reported Norvasc (Amlodipine Besylate) 5 Mg Tab 5 Mg PO DAILY 04/29/16 Reported Zaroxolyn (Metolazone) 2.5 Mg Tab 2.5 Mg PO 2XWK 04/07/16 Reported TAKE THIS MEDICATION EVERY THURSDAY AND THURSDAY Lasix (Furosemide) 20 Mg Tab 20 Mg PO QAM 04/07/16 Reported Tylenol (Acetaminophen) 325 Mg Tab 650 Mg PO Q4H PRN 02/20/16 Reported Oxygen Gas 2 Liters NA UD PRN 02/20/16 Reported Glucophage (Metformin Hcl) 1,000 Mg Tab 1,000 Mg PO BID 02/05/16 Reported Fleet Enema (Sodium Phosphate/Biphosphate) Keila 1 Ea VA UD PRN 02/05/16 Reported DAILY NEEDED ON DAY 6 IF DULCOLAX SUPPOSITORY WAS INEFFECTIVE Senexon-S (Sennosides-Docusate Sodium) 1 Tab Tab 2 Tabs PO DAILY 02/05/16 Reported Protonix (Pantoprazole Sodium) 40 Mg Tab 40 Mg PO QAM 01/07/16 Reported Duloxetine HCl 60 Mg Cap 60 Mg PO QAM 12/20/15 Reported Amitriptyline HCl 10 Mg Tab 10 Mg PO BID 08/25/15 Reported Ferrous Sulfate 325 Mg Tab 325 Mg PO BIDM 04/20/15 Reported Baclofen 20 Mg Tab 20 Mg PO BID 04/20/15 Reported Crestor (Rosuvastatin Calcium) 10 Mg Tab 10 Mg PO DAILY 04/20/15 Reported Aspirin Chewable (Aspirin) 81 Mg Chew 81 Mg PO QAM 04/20/15 Reported Review of Systems Constitutional: No chills, No fever Respiratory: No shortness of breath Cardiac: No chest pain Abdomen: + pain, No GI bleeding, No constipation, No diarrhea, No nausea, No vomiting Skin: No rash Physical Exam Date Time Temp Pulse Resp B/P Pulse Ox O2 Delivery O2 Flow Rate FiO2 09/29/16 08:24 36.9 79 20 116/71 93 Nasal Cannula 2.0 09/29/16 07:02 74 18 92 Nasal Cannula 4.0 09/29/16 04:00 Nasal Cannula 09/29/16 03:22 36.9 78 24 141/83 100 Mask 4.0 09/29/16 03:19 74 18 92 Nasal Cannula 4.0 09/29/16 00:25 78 18 93 Nasal Cannula 4.0 09/28/16 23:18 36.9 80 20 145/94 97 Nasal Cannula 4.0 09/28/16 22:39 79 20 158/80 99 09/28/16 21:21 74 20 159/88 100 Nasal Cannula 4.0 09/28/16 20:13 71 09/28/16 19:55 73 09/28/16 19:43 36.5 82 20 162/95 94 Nasal Cannula 2.0 General Appearance: + mild distress ENT: hearing grossly normal Neck: supple Respiratory/Chest: no respiratory distress, no accessory muscle use, + decreased breath sounds Cardiovascular: regular rate, rhythm, no JVD Abdomen: no organomegaly, no pulsatile mass, + abnormal bowel sounds (distant bowel sounds, present x 4), + distended Neurologic/Psych: alert, + pertinent finding (oriented to place, not location) Skin: normal color, no jaundice, warm/dry, no rash Laboratory Results Last 24 Hours Test 09/28/16 19:45 09/28/16 20:32 09/28/16 20:38 09/28/16 22:17 Urine Color YELLOW Urine Appearance SL CLOUDY Urine pH 6.5 Urine Specific [place] 1.015 Urine Protein 2+ Urine Glucose (UA) NEG Urine Ketones NEG Urine Occult Blood 3+ Urine Nitrite POS Urine Bilirubin NEG Urine Urobilinogen NEG Urine Leukocyte Esterase LARGE Urine RBC 10-30 /hpf Urine WBC >30 /hpf Urine Epithelial Cells 10-20 /lpf Urine Renal Cells 0-5 /lpf Urine Bacteria 4+ White Blood Count 9.70 K/uL Red Blood Count 4.26 M/uL Hemoglobin 10.9 g/dL Hematocrit 33.6 % Mean Corpuscular Volume 78.9 fL Mean Corpuscular Hemoglobin 25.6 pg Mean Corpuscular Hemoglobin Concent 32.4 g/dl Platelet Count 216 K/uL Mean Platelet Volume 9.1 fL Neutrophils (%) (Auto) 79.5 % Lymphocytes (%) (Auto) 10.0 % Monocytes (%) (Auto) 8.7 % Eosinophils (%) (Auto) 1.3 % Basophils (%) (Auto) 0.2 % Neutrophils # (Auto) 7.71 K/uL Lymphocytes # (Auto) 0.97 K/uL Monocytes # (Auto) 0.84 K/uL Eosinophils # (Auto) 0.13 K/uL Basophils # (Auto) 0.02 K/uL RDW Standard Deviation 50.2 fL RDW Coefficient of Variation 17.7 % Immature Granulocyte % (Auto) 0.3 % Immature Granulocyte # (Auto) 0.03 K/uL Prothrombin Time 23.2 SECONDS Prothromb Time International Ratio 2.1 Activated Partial Thromboplast Time 57.0 SECONDS Partial Thromboplastin Ratio 2.2 Sodium Level 128 mmol/L 131 mmol/L Potassium Level 4.6 mmol/L Chloride Level 90 mmol/L Carbon Dioxide Level 30 mmol/L Anion Gap 8.0 mmol/L Blood Urea Nitrogen 24 mg/dl Creatinine 1.30 mg/dl Est Creatinine Clear Calc Drug Dose 58.5 ml/min Estimated GFR () 62.3 Estimated GFR (Non- 53.8 BUN/Creatinine Ratio 18.5 Random Glucose 137 mg/dl Calcium Level 8.9 mg/dl Total Bilirubin 0.2 mg/dl Direct Bilirubin < 0.1 mg/dl Aspartate Amino Transf (AST/SGOT) 12 U/L Alanine Aminotransferase (ALT/SGPT) 14 U/L Alkaline Phosphatase 124 U/L Total Protein 8.4 gm/dl Albumin 2.7 gm/dl Lipase 221 U/L Bedside Troponin I 0.000 ng/ml Arterial Blood pH 7.34 Arterial Blood Partial Pressure CO2 64 mmHg Arterial Blood Partial Pressure O2 86 mm/Hg Arterial Blood HCO3 34 mmol/L Arterial Blood Oxygen Saturation 95.2 % Arterial Blood Base Excess 6.3 mEq/L Arterial Blood Gas Delivery 4.5L Junior Test POS Estimated Average Glucose 169 mg/dl Hemoglobin A1c 7.5 % Osmolality 284 mOsm/kg Magnesium Level 2.3 mg/dl Ammonia 12.0 umol/L Pro-B-Type Natriuretic Peptide 808 pg/ml Thyroid Stimulating Hormone (TSH) 3.620 uIu/ml Test 09/29/16 06:13 09/29/16 06:24 White Blood Count 11.77 K/uL Red Blood Count 4.06 M/uL Hemoglobin 10.2 g/dL Hematocrit 32.0 % Mean Corpuscular Volume 78.8 fL Mean Corpuscular Hemoglobin 25.1 pg Mean Corpuscular Hemoglobin Concent 31.9 g/dl Platelet Count 215 K/uL Mean Platelet Volume 9.1 fL Neutrophils (%) (Auto) 82.1 % Lymphocytes (%) (Auto) 7.4 % Monocytes (%) (Auto) 9.3 % Eosinophils (%) (Auto) 0.8 % Basophils (%) (Auto) 0.1 % Neutrophils # (Auto) 9.67 K/uL Lymphocytes # (Auto) 0.87 K/uL Monocytes # (Auto) 1.09 K/uL Eosinophils # (Auto) 0.09 K/uL Basophils # (Auto) 0.01 K/uL RDW Standard Deviation 51.0 fL RDW Coefficient of Variation 17.6 % Immature Granulocyte % (Auto) 0.3 % Immature Granulocyte # (Auto) 0.04 K/uL Prothrombin Time 22.7 SECONDS Prothromb Time International Ratio 2.1 Sodium Level 131 mmol/L Potassium Level 4.0 mmol/L Chloride Level 90 mmol/L Carbon Dioxide Level 34 mmol/L Anion Gap 7.0 mmol/L Blood Urea Nitrogen 24 mg/dl Creatinine 1.30 mg/dl Est Creatinine Clear Calc Drug Dose 57.5 ml/min Estimated GFR () 62.3 Estimated GFR (Non- 53.8 BUN/Creatinine Ratio 18.1 Random Glucose 138 mg/dl Calcium Level 8.9 mg/dl Troponin I < 0.015 ng/ml Bedside Glucose 151 mg/dl Impression Patient is a 76 year old male with generalized abdominal pain, worse in RLQ with CT evidence of distention and possible early sigmoid volvulus. Plan NPO IVF colonoscopy with colonic decompression today with Dr. Goodrich Avoid medications that slow GI motility: narcotics, benzos, anticholinergics Start bowel regimen I saw and evaluated the patient. He appears to have recurrent sigmoid volvulus based on the CT scan from yesterday evening. The patient has a recent history of a sigmoid volvulus and is status post a colonic decompression in July. At that time he had seen general surgery but the patient declined surgical intervention. Physical examination No obvious distress Distended abdomen with tympany noted Impression: Patient with signs and symptoms suggestive of recurrent sigmoid volvulus. Given the CT scan findings we will proceed with colonoscopy for volvulus reduction and colonic compression tube placement. We did obtain consent for the procedure from the patient's power of senior trial attorney. Plan Colonic decompression today Daily KUB, KUB today after colonic decompression Obtain a general surgery consultation Colyte 100 mL via rectal tube every 4-6 hours all rectal tube remains in place.
[2016-09-29] MEDS ORDERED: MINERAL OIL 30 ML UDC ONE (10:54)
--- NOTE | 2016-09-29 12:09 | GI REPORT ---
Procedure Date: 09/29/2016 11:46 AM Procedure: Colonoscopy Indications: Abnormal CT of the GI tract, Suspected volvulus, For therapy of volvulus Medicines: Monitored Anesthesia Care Complications: No immediate complications. Estimated blood loss: Minimal. Estimated Blood Loss: Estimated blood loss: none. Procedure: Pre-Anesthesia Assessment: - Prior to the procedure, a History and Physical was performed, and patient medications, allergies and sensitivities were reviewed. The patient's tolerance of previous anesthesia was reviewed. - The patient is unable to give consent secondary to the patient's altered mental status. The alternatives, risks and benefits of the procedure were discussed at length with the patient's relative. The patient's proxy verbalized understanding of the risks as well as the alternatives and wished to proceed with the procedure. - Patient identification and proposed procedure were verified prior to the procedure by the physician, the nurse and the elocution teacher. The procedure was verified in the procedure room. - Pre-procedure physical examination revealed no contraindications to sedation. - ASA Grade Assessment: IV - A patient with severe systemic disease that is a constant threat to life. - After reviewing the risks and benefits, the patient was deemed in satisfactory condition to undergo the procedure. - Immediately prior to administration of medications, the patient was re-assessed for adequacy to receive sedatives. - The heart rate, respiratory rate, oxygen saturations, blood pressure, adequacy of pulmonary ventilation, and response to care were monitored throughout the procedure. - The physical status of the patient was re-assessed after the procedure. - The anesthesia plan was to use monitored anesthesia care (MAC). After I obtained informed consent, the scope was passed under direct vision. Throughout the procedure, the patient's blood pressure, pulse, and oxygen saturations were monitored continuously. The Scope was introduced through the anus and advanced to the transverse colon for evaluation. This was the intended extent. The colonoscopy was performed without difficulty. The patient tolerated the procedure well. The quality of the bowel preparation was adequate. Findings: The perianal and digital rectal examinations were normal. Pertinent negatives include normal sphincter tone. A large amount of solid stool was found in the transverse colon, precluding visualization. Decompression of the volvulus was attempted and was successful, with complete decompression achieved. Following the maneuver, a tube was placed to maintain the decompression. Estimated blood loss: none. Impression: - Stool in the transverse colon. - Decompression tube placed (Sigmoid volvulus) Recommendation: Colonic decompression perfromed Please give 100 ml colyte via rectal tube every 4 hours KUB today and every am Surgery consultation today Jenny Goodrich D.O. Jenny Goodrich, 09/29/2016 12:09:36 PM This report has been signed electronically. Note Initiated On: 09/29/2016 11:46 AM I attest to the content of the Intraoperative Record and orders documented therein, exceptions below
[2016-09-29] MEDS ORDERED: PROPOFOL IV EMULSION 10 MG/ML 20 ML VIAL IV ONE (12:12)
[2016-09-29] MEDS ORDERED: LIDOCAINE HCL 2% 2 ML VIAL (20MG/ML) ONE (12:12)
--- NOTE | 2016-09-29 12:29 | Anesthesiology Progress Note ---
Anesthesia Post Op Note Date & Time Sep 29, 2016 at 12:28 Vital Signs Pain Intensity: 0 Vital Signs Past 12 Hours Date Time Temp Pulse Resp B/P Pulse Ox O2 Delivery O2 Flow Rate FiO2 09/29/16 12:13 69 16 125/70 96 Nasal Cannula 4 09/29/16 11:18 37.1 73 16 144/77 97 Nasal Cannula 4 09/29/16 08:24 36.9 79 20 116/71 93 Nasal Cannula 2.0 09/29/16 08:00 92 Nasal Cannula 4.0 09/29/16 07:02 74 18 92 Nasal Cannula 4.0 09/29/16 04:00 Nasal Cannula 09/29/16 03:22 36.9 78 24 141/83 100 Mask 4.0 09/29/16 03:19 74 18 92 Nasal Cannula 4.0 Notes Mental Status: alert / awake / arousable, participated in evaluation Pt Amnestic to Procedure: Yes Nausea / Vomiting: adequately controlled Pain: adequately controlled Airway Patency, RR, SpO2: stable & adequate BP & HR: stable & adequate Hydration State: stable & adequate Anesthetic Complications: no major complications apparent
--- NOTE | 2016-09-29 12:58 | Clinical Documentation Query ---
CLINICAL DOCUMENTATION QUERY Dr. KAY, In your clinical opinion is this patient being managed for: ( ) UTI possibly due to chronic indwelling kohli catheter ( ) Other explanation of clinical findings (Please Explain) ( ) Unable to determine (Please Define) ( ) Need to Discuss ( ) Not Agree The medical record reflects the following clinical findings, treatment, and risk factors. Clinical Indicators: 76 yo male with a complicated UTI. Documentation reflects pt has a chronic kohli catheter due to a neurogenic bladder. UA with LE large, WBC > 30, bacteria +4. Culture is pending Treatment: IV zosyn, kohli catheter changed Risk Factors: chronic kohli catheter Please clarify and document your clinical opinion in the progress notes and discharge summary. Terms such as "probable", "suspected", "likely", "questionable", "possible", or "still to be ruled out" are acceptable. IF IN AGREEMENT, YOU MUST DOCUMENT ABOVE DIAGNOSTIC STATEMENT IN DAILY PROGRESS NOTES AND DISCHARGE SUMMARY. This document is not part of the patient's record. Thank You, Lianne Stevenson, MARVIN [phone]
--- NOTE | 2016-09-29 15:27 | Surgery Consultation ---
Consultation Date of Consultation: Sep 29, 2016. Attending Physician: Angela Chung DO Reason for Consultation: Recurrent Sigmoid Volvulus (Fifi Camarillo PA-C) History of Present Illness Homero is a 76 year-old male who presented to emergency department from nursing facility with altered mental status and decreased O2 saturations at 88% on room air. He also had some generalized abdominal pain. CT scan of abdomen and pelvis showed possible recurrent sigmoid volvulus. He was last in the hospital at the end of July for sigmoid volvulus which he required decompression with rectal tube. Patient elected against surgery at that time. Homero has extensive medical history including CAD, obesity, history of spinal cord tumor and paraplegia, neurogenic bladder with chronic indwelling Cantrell Catheter, DM2, HTN, Chronic anemia, atrial fibrillation on anticoagulation, and recurrent UTIs. Homero underwent CT scan of abdomen and pelvis which showed possible recurrence of sigmoid volvulus. He underwent colonoscopy for decompression and rectal tube placement today. (Fifi Camarillo PA-C) Past Medical/Surgical History Medical Problems: (1) Altered mental status Status: Acute (2) Altered mental status Status: Acute (3) Altered mental status Status: Acute (4) Altered mental status Status: Acute (5) Diffuse abdominal pain Status: Acute (6) Dislodged Cantrell catheter Status: Acute (7) Fever Status: Acute (8) Hematuria Status: Acute (9) Hyperglycemia Status: Acute (10) Hypomagnesemia Status: Acute (11) Hypoxia Status: Acute (12) Hypoxia Status: Acute (13) Lactic acid acidosis Status: Acute (14) Left lower lobe pneumonia Status: Acute (15) Leukocytosis Status: Acute (16) Pneumonia Status: Acute (17) Renal insufficiency Status: Acute (18) Sepsis Status: Acute (19) Sigmoid volvulus Status: Acute (20) UTI (urinary tract infection) Status: Acute (21) UTI (urinary tract infection) Status: Acute (22) UTI (urinary tract infection) Status: Acute (23) UTI (urinary tract infection) Status: Acute (Fifi Camarillo PA-C) Family History Cerebral aneurysm BROTHER Colon cancer SISTER Diabetes mellitus MOTHER Heart disease FATHER MOTHER Hypertension FATHER Prostate cancer FATHER Stroke FATHER (Fifi Camarillo PA-C) Cerebral aneurysm BROTHER Colon cancer SISTER Diabetes mellitus MOTHER Heart disease FATHER MOTHER Hypertension FATHER Prostate cancer FATHER Stroke FATHER (Julian Garcia M.D.) Social History Smoking Status: Never Smoker Drug Use: none Marital Status: single Housing Status: lives alone, assisted Occupation Status: retired (Fifi Camarillo ., JAZMÍN) Allergies Coded Allergies: Latex (Verified Allergy, Mild, UNSURE - FROM [facility], 09/28/16) Macrolides and Ketolides (Verified Allergy, Unknown, [facility], 09/28/16) Azithromycin (Verified Adverse Reaction, Mild, nausea, 09/28/16) with nausea and diarrhea Home Medications Scheduled Acetaminophen (Tylenol), 500 MG PO TID Amitriptyline HCl (Amitriptyline HCl), 10 MG PO BID Amlodipine (Norvasc), 5 MG PO DAILY Aspirin (Aspirin Chewable), 81 MG PO QAM Baclofen (Baclofen), 20 MG PO BID Diclofenac Sodium (Topical) (Diclofenac Sodium), 1 APPLN TOP TID Duloxetine HCl (Duloxetine HCl), 60 MG PO QAM Emollient (Moisturizing Cream), 1 APPLN TOP HS Ferrous Sulfate (Ferrous Sulfate), 325 MG PO BIDM Furosemide (Lasix), 20 MG PO QAM Ipratropium-Albuterol (Duoneb), 1 TREATMENT INH Q6H Metformin Hcl (Glucophage), 1,000 MG PO BID Metolazone (Zaroxolyn), 2.5 MG PO 2XWK Pantoprazole Sodium (Protonix), 40 MG PO QAM Polyvinyl Alcohol (Artificial Tears), 2 DROPS OPB UD Potassium Chloride (Potassium Chloride Er), 20 MEQ PO TID Pregabalin (Lyrica), 75 MG PO BID Rosuvastatin Calcium (Crestor), 10 MG PO DAILY Saline (Deep Sea Nasal [place]), 2 SPRAYS SABRINA UD Sennosides-Docusate Sodium ([place]-S), 2 TABS PO DAILY Simethicone (Gas Relief Extra Strength), 125 MG PO TID Sotalol Hcl (Sotalol Hcl), 80 MG PO BID Warfarin Sod (Jantoven), 4 MG PO 3XWK Warfarin Sodium (Coumadin), 2 MG PO 4XWK Zinc Oxide (Topical) (Desitin), 1 APPLN TOP BID Scheduled PRN Acetaminophen (Tylenol), 650 MG PO Q4H PRN for Pain Alum & Mag Hydrox-Simethicone (Rulox), 30 ML PO QD PRN for Indigestion Magnesium Hydroxide (Milk Of Magnesia), 30 ML PO UD PRN for Constipation Oxycodone HCl (Oxycodone HCl), 5 MG PO Q4H PRN for Moderate to Severe Pain Oxygen (Oxygen), 2 LITERS NA UD PRN for Shortness of Breath Saline (Deep Sea Nasal [place]), 2 SPRAYS SABRINA Q4H PRN for DRYNESS Sodium Phosphate/Biphosphate (Fleet Enema), 1 EA NV UD PRN for Constipation Current Inpatient Medications Current Inpatient Medications Medications (Trade) Dose Ordered Sig/Betzy Route Start Time Stop Time Status Last Admin Dose Admin Albuterol/ Ipratropium (Duoneb) 3 ml Q2H PRN INH 09/28/16 23:00 10/28/16 22:59 Acetaminophen (Tylenol Tab) 650 mg Q4H PRN PO 09/28/16 23:00 10/28/16 22:59 Nitroglycerin (Nitrostat Tab) 0.4 mg UD PRN SL 09/28/16 23:00 10/28/16 22:59 Insulin Aspart (novoLOG ASPART) SLIDING SCALE If C... ACHS SC 09/29/16 07:00 10/29/16 06:59 Glucose (Glucose 40% Gel) 15-30 GRAMS 15 GRAMS... UD PRN PO 09/28/16 23:00 10/28/16 22:59 Glucose (Glucose Chew Tab) 4-8 Tablets 4 Tabl... UD PRN PO 09/28/16 23:00 10/28/16 22:59 Dextrose (Dextrose 50% 50ML Syringe) 25-50ML OF 50% DW IV FOR... UD PRN IV 09/28/16 23:00 10/28/16 22:59 Glucagon (Glucagon Inj) 1 mg UD PRN SQ 09/28/16 23:00 10/28/16 22:59 Hydromorphone HCl (Dilaudid Inj) 0.5 mg Q3H PRN IV 09/28/16 23:00 10/12/16 22:59 Ondansetron HCl 4 mg 4 mg Q6H PRN IV 09/28/16 23:00 10/28/16 22:59 Promethazine HCl/ Sodium Chloride (Phenergan Inj/ Nss 50ml) 50.5 ml @ 204 mls/hr Q6H PRN IV 09/28/16 23:00 10/28/16 22:59 Amlodipine Besylate (Norvasc Tab) 5 mg DAILY PO 09/29/16 09:00 10/29/16 08:59 09/29/16 08:23 5 MG Aspirin (Aspirin Chew) 81 mg QAM PO 09/29/16 09:00 10/29/16 08:59 09/29/16 08:23 81 MG Ferrous Sulfate (Feosol Tab) 325 mg BIDM PO 09/29/16 07:30 10/29/16 07:59 09/29/16 08:21 325 MG Pantoprazole Sodium (Protonix Tab) 40 mg QAM PO 09/29/16 09:00 10/29/16 08:59 09/29/16 08:23 40 MG Senna/Docusate Sodium (Senokot S Tab) 2 tab DAILY PO 09/29/16 09:00 10/29/16 08:59 09/29/16 08:24 2 TAB Sodium Biphosphate/ Sodium Phosphate (Fleet Enema) 1 ml UD PRN NV 09/28/16 23:00 10/28/16 22:59 Sotalol HCl (Betapace Tab) 80 mg BID PO 09/29/16 09:00 10/29/16 08:59 09/29/16 08:23 80 MG Piperacillin Sod/ Tazobactam Sod 1 ea 1 ea UD PRN N/A 09/28/16 23:31 10/28/16 23:30 Sodium Chloride (Nss 1000ml) 1,000 ml @ 60 mls/hr [id number] IV 09/28/16 23:15 10/28/16 23:14 09/29/16 00:08 60 MLS/HR Ipratropium [place] (Atrovent 0.02% 0.5MG/2.5ML Neb) 0.5 mg Q6R INH 09/29/16 03:00 10/29/16 02:59 09/29/16 14:13 0.5 MG Levalbuterol 1.25 mg 1.25 mg Q6R INH 09/29/16 03:00 10/29/16 02:59 09/29/16 14:13 1.25 MG Piperacillin Sod/ Tazobactam Sod/ Dextrose (Zosyn Iv/D5 100ml) 120 ml @ 30 mls/hr Q8H IV 09/29/16 04:00 10/09/16 03:59 09/29/16 13:35 30 MLS/HR Haloperidol Lactate (Haldol Inj) 2 mg Q2H PRN IM 09/29/16 05:45 10/29/16 05:44 Haloperidol (Haldol Tab) 2 mg Q4H PRN PO 09/29/16 05:45 10/29/16 05:44 Polyethylene Glycol/ Electrolytes (Golytely Soln) 0.4 dose Q4 NV 09/29/16 16:00 10/29/16 15:59 (Fifi Camarillo ., INESC) Review of Systems Patient is poor historian, slightly confused on examination. States he is having abdominal pain and "pain everywhere" (Fifi Camarillo ., INESC) Physical Exam Date Time Temp Pulse Resp B/P Pulse Ox O2 Delivery O2 Flow Rate FiO2 09/29/16 14:14 74 18 93 Nasal Cannula 4.0 09/29/16 12:49 72 139/80 94 Nasal Cannula 3.0 09/29/16 12:28 67 18 108/60 97 Nasal Cannula 4 09/29/16 12:13 69 16 125/70 96 Nasal Cannula 4 09/29/16 12:00 94 Nasal Cannula 4.0 09/29/16 11:18 37.1 73 16 144/77 97 Nasal Cannula 4 09/29/16 08:24 36.9 79 20 116/71 93 Nasal Cannula 2.0 09/29/16 08:00 92 Nasal Cannula 4.0 09/29/16 07:02 74 18 92 Nasal Cannula 4.0 09/29/16 04:00 Nasal Cannula 09/29/16 03:22 36.9 78 24 141/83 100 Mask 4.0 09/29/16 03:19 74 18 92 Nasal Cannula 4.0 09/29/16 00:25 78 18 93 Nasal Cannula 4.0 09/28/16 23:18 36.9 80 20 145/94 97 Nasal Cannula 4.0 09/28/16 22:39 79 20 158/80 99 09/28/16 21:21 74 20 159/88 100 Nasal Cannula 4.0 09/28/16 20:13 71 09/28/16 19:55 73 09/28/16 19:43 36.5 82 20 162/95 94 Nasal Cannula 2.0 General Appearance: + mild distress, + obese Head: atraumatic Eyes: sclerae normal ENT: hearing grossly normal Respiratory/Chest: no respiratory distress, no accessory muscle use Abdomen/GI: normal bowel sounds, soft, no organomegaly, no pulsatile mass, + tenderness Neurologic/Psych: + disoriented Skin: warm/dry, no rash (Fifi Camarillo ., PA-C) Laboratory Results Last 24 Hours Test 09/28/16 19:45 09/28/16 20:32 09/28/16 20:38 09/28/16 20:41 Urine Color YELLOW Urine Appearance SL CLOUDY Urine pH 6.5 Urine Specific [place] 1.015 Urine Protein 2+ Urine Glucose (UA) NEG Urine Ketones NEG Urine Occult Blood 3+ Urine Nitrite POS Urine Bilirubin NEG Urine Urobilinogen NEG Urine Leukocyte Esterase LARGE Urine RBC 10-30 /hpf Urine WBC >30 /hpf Urine Epithelial Cells 10-20 /lpf Urine Renal Cells 0-5 /lpf Urine Bacteria 4+ White Blood Count 9.70 K/uL Red Blood Count 4.26 M/uL Hemoglobin 10.9 g/dL Hematocrit 33.6 % Mean Corpuscular Volume 78.9 fL Mean Corpuscular Hemoglobin 25.6 pg Mean Corpuscular Hemoglobin Concent 32.4 g/dl Platelet Count 216 K/uL Mean Platelet Volume 9.1 fL Neutrophils (%) (Auto) 79.5 % Lymphocytes (%) (Auto) 10.0 % Monocytes (%) (Auto) 8.7 % Eosinophils (%) (Auto) 1.3 % Basophils (%) (Auto) 0.2 % Neutrophils # (Auto) 7.71 K/uL Lymphocytes # (Auto) 0.97 K/uL Monocytes # (Auto) 0.84 K/uL Eosinophils # (Auto) 0.13 K/uL Basophils # (Auto) 0.02 K/uL RDW Standard Deviation 50.2 fL RDW Coefficient of Variation 17.7 % Immature Granulocyte % (Auto) 0.3 % Immature Granulocyte # (Auto) 0.03 K/uL Prothrombin Time 23.2 SECONDS Prothromb Time International Ratio 2.1 Activated Partial Thromboplast Time 57.0 SECONDS Partial Thromboplastin Ratio 2.2 Sodium Level 128 mmol/L Potassium Level 4.6 mmol/L Chloride Level 90 mmol/L Carbon Dioxide Level 30 mmol/L Anion Gap 8.0 mmol/L Blood Urea Nitrogen 24 mg/dl Creatinine 1.30 mg/dl Est Creatinine Clear Calc Drug Dose 58.5 ml/min Estimated GFR () 62.3 Estimated GFR (Non- 53.8 BUN/Creatinine Ratio 18.5 Random Glucose 137 mg/dl Calcium Level 8.9 mg/dl Total Bilirubin 0.2 mg/dl Direct Bilirubin < 0.1 mg/dl Aspartate Amino Transf (AST/SGOT) 12 U/L Alanine Aminotransferase (ALT/SGPT) 14 U/L Alkaline Phosphatase 124 U/L Total Protein 8.4 gm/dl Albumin 2.7 gm/dl Lipase 221 U/L Bedside Troponin I 0.000 ng/ml Bedside Lactic Acid Venous 2.22 mmol/L Test 09/28/16 22:17 09/29/16 06:13 09/29/16 06:24 Arterial Blood pH 7.34 Arterial Blood Partial Pressure CO2 64 mmHg Arterial Blood Partial Pressure O2 86 mm/Hg Arterial Blood HCO3 34 mmol/L Arterial Blood Oxygen Saturation 95.2 % Arterial Blood Base Excess 6.3 mEq/L Arterial Blood Gas Delivery 4.5L Junior Test POS Sodium Level 131 mmol/L 131 mmol/L Estimated Average Glucose 169 mg/dl Hemoglobin A1c 7.5 % Osmolality 284 mOsm/kg Magnesium Level 2.3 mg/dl Ammonia 12.0 umol/L Pro-B-Type Natriuretic Peptide 808 pg/ml Thyroid Stimulating Hormone (TSH) 3.620 uIu/ml White Blood Count 11.77 K/uL Red Blood Count 4.06 M/uL Hemoglobin 10.2 g/dL Hematocrit 32.0 % Mean Corpuscular Volume 78.8 fL Mean Corpuscular Hemoglobin 25.1 pg Mean Corpuscular Hemoglobin Concent 31.9 g/dl Platelet Count 215 K/uL Mean Platelet Volume 9.1 fL Neutrophils (%) (Auto) 82.1 % Lymphocytes (%) (Auto) 7.4 % Monocytes (%) (Auto) 9.3 % Eosinophils (%) (Auto) 0.8 % Basophils (%) (Auto) 0.1 % Neutrophils # (Auto) 9.67 K/uL Lymphocytes # (Auto) 0.87 K/uL Monocytes # (Auto) 1.09 K/uL Eosinophils # (Auto) 0.09 K/uL Basophils # (Auto) 0.01 K/uL RDW Standard Deviation 51.0 fL RDW Coefficient of Variation 17.6 % Immature Granulocyte % (Auto) 0.3 % Immature Granulocyte # (Auto) 0.04 K/uL Prothrombin Time 22.7 SECONDS Prothromb Time International Ratio 2.1 Potassium Level 4.0 mmol/L Chloride Level 90 mmol/L Carbon Dioxide Level 34 mmol/L Anion Gap 7.0 mmol/L Blood Urea Nitrogen 24 mg/dl Creatinine 1.30 mg/dl Est Creatinine Clear Calc Drug Dose 57.5 ml/min Estimated GFR () 62.3 Estimated GFR (Non- 53.8 BUN/Creatinine Ratio 18.1 Random Glucose 138 mg/dl Calcium Level 8.9 mg/dl Troponin I < 0.015 ng/ml Bedside Glucose 151 mg/dl ABDOMEN AND PELVIS CT WITHOUT CONTRAST CT DOSE: 4368.63 mGy.cm HISTORY: Pain eval for RLA pain TECHNIQUE: Multiaxial CT images of the abdomen and pelvis were performed without contrast. COMPARISON STUDY: None. FINDINGS: Bibasilar atelectatic and/or infiltrative change. Findings of a mild hepatosplenomegaly. Fatty infiltration of liver. Gallbladder is negative for distention. Pancreas is uniform. Kidneys negative for hydronephrosis. Destructive changes of the right hip and associated acetabulum are stable to slightly progressive. Bladder is midline] tube has been removed. There may be an early developing sigmoid volvulus. Maximum sigmoid diameter is 6.5 cm. Compression deformities of the thoracolumbar region are stable. IMPRESSION: 1. Destructive process involving the right hip and right acetabulum slightly progressive from the prior study. 2. Mild increase in distention of the mid sigmoid which may indicate an early or developing recurrent volvulus. 3. Stable abdominal and pelvic adenopathy. 4. Stable compression deformities of the thoracolumbar spine. 5. Stable hepatosplenomegaly. 6. Mild bibasilar atelectatic and/or infiltrative changes (Fifi Camarillo ., PA-C) Assessment & Plan Recurrent Sigmoid Volvulus s/p rectal tube decompression - Leukocytosis of 11.77 - afebrile - INR 2.1 Altered Mental Status Plan: Dr. Garcia discussed with Family Member Michael Gould, (person to notify) about patient's status and the possible need for sigmoidectomy given this is second occurrence of sigmoid volvulus. Patient does not want to have colostomy and would prefer to have reconnection if surgery is required. Patient underwent colonoscopy for decompression and rectal tube placement by Dr. Goodrich today. Continue rectal tube and orders per GI Recheck INR tomorrow am Continue current pain management prn Dr. Garcia to discuss management options with family/POA tomorrow Dr. Garcia has seen and examined patient, agrees with above stated findings and treatment plan. (Fifi Camarillo ., PA-C) I have interview and examined this patient and review the labs and radiology images and reports and I agree with the above note. He has a recurrent volvulus. I discussed his situation with spouse of POA. He will need to have his INR normalize prior to surgery. A decision will need to be made regarding creation of colostomy or not. They will also need to decide where they would like the surgery performed. (Julian Garcia M.D.)
--- NOTE | 2016-09-29 15:42 | DIAGNOSTIC IMAGING REPORT ---
KUB CLINICAL HISTORY: Rectal tube placement. FINDINGS: 2 AP, portable, supine abdominal radiographs are correlated with abdominal CT dated 09/28/2016. A rectal tube is coiled in the right pelvis, likely located within the sigmoid colon. There is no clear radiographic evidence of bowel obstruction. No evidence of intraperitoneal free air is seen on these supine views. There is advanced atherosclerotic calcification of the abdominal aorta. The skeletal structures are osteopenic. Advanced lumbosacral spondylosis and scoliosis are noted. Postoperative change is seen in the right bony pelvis. Advanced degenerative change and chronic deformity is noted in the right hip. Postoperative change is partially imaged in the left femur. IMPRESSION: 1. A rectal tube is in place. This is coiled in the right hemipelvis, likely located within the tortuous sigmoid colon. 2. There is no clear radiographic evidence of bowel obstruction. Electronically signed by: Juan Garcia M.D. 09/29/2016 3:40 PM Dictated Date/Time: 09/29/2016 3:35 PM
--- NOTE | 2016-09-29 15:45 | Progress Note ---
Subjective Date of Service: Sep 29, 2016. Subjective Pt evaluation today including: conversation w/ patient, physical exam, lab review, review of studies, review of inpatient medication list Saw/examined the patient in room 205 He had a colonoscopic decompression earlier today States he still feels weak and has abdominal pain Seems more awake/alert and with it currently than what was documented during admission Problem List Medical Problems: (1) Altered mental status Status: Acute (2) Altered mental status Status: Acute (3) Altered mental status Status: Acute (4) Altered mental status Status: Acute (5) Diffuse abdominal pain Status: Acute (6) Dislodged [place]rell catheter Status: Acute (7) Fever Status: Acute (8) Hematuria Status: Acute (9) Hyperglycemia Status: Acute (10) Hypomagnesemia Status: Acute (11) Hypoxia Status: Acute (12) Hypoxia Status: Acute (13) Lactic acid acidosis Status: Acute (14) Left lower lobe pneumonia Status: Acute (15) Leukocytosis Status: Acute (16) Pneumonia Status: Acute (17) Renal insufficiency Status: Acute (18) Sepsis Status: Acute (19) Sigmoid volvulus Status: Acute (20) UTI (urinary tract infection) Status: Acute (21) UTI (urinary tract infection) Status: Acute (22) UTI (urinary tract infection) Status: Acute (23) UTI (urinary tract infection) Status: Acute Review of Systems Respiratory: No shortness of breath Cardiac: No chest pain Abdomen: + pain, No diarrhea, No nausea, No vomiting Medications Current Inpatient Medications Medications (Trade) Dose Ordered Sig/Betzy Route Start Time Stop Time Status Last Admin Dose Admin Albuterol/ Ipratropium (Duoneb) 3 ml Q2H PRN INH 09/28/16 23:00 10/28/16 22:59 Acetaminophen (Tylenol Tab) 650 mg Q4H PRN PO 09/28/16 23:00 10/28/16 22:59 Nitroglycerin (Nitrostat Tab) 0.4 mg UD PRN SL 09/28/16 23:00 10/28/16 22:59 Insulin Aspart (novoLOG ASPART) SLIDING SCALE If C... ACHS SC 09/29/16 07:00 10/29/16 06:59 Glucose (Glucose 40% Gel) 15-30 GRAMS 15 GRAMS... UD PRN PO 09/28/16 23:00 10/28/16 22:59 Glucose (Glucose Chew Tab) 4-8 Tablets 4 Tabl... UD PRN PO 09/28/16 23:00 10/28/16 22:59 Dextrose (Dextrose 50% 50ML Syringe) 25-50ML OF 50% DW IV FOR... UD PRN IV 09/28/16 23:00 10/28/16 22:59 Glucagon (Glucagon Inj) 1 mg UD PRN SQ 09/28/16 23:00 10/28/16 22:59 Hydromorphone HCl (Dilaudid Inj) 0.5 mg Q3H PRN IV 09/28/16 23:00 10/12/16 22:59 Ondansetron HCl 4 mg 4 mg Q6H PRN IV 09/28/16 23:00 10/28/16 22:59 Promethazine HCl/ Sodium Chloride (Phenergan Inj/ Nss 50ml) 50.5 ml @ 204 mls/hr Q6H PRN IV 09/28/16 23:00 10/28/16 22:59 Amlodipine Besylate (Norvasc Tab) 5 mg DAILY PO 09/29/16 09:00 10/29/16 08:59 09/29/16 08:23 5 MG Aspirin (Aspirin Chew) 81 mg QAM PO 09/29/16 09:00 10/29/16 08:59 09/29/16 08:23 81 MG Ferrous Sulfate (Feosol Tab) 325 mg BIDM PO 09/29/16 07:30 10/29/16 07:59 09/29/16 08:21 325 MG Pantoprazole Sodium (Protonix Tab) 40 mg QAM PO 09/29/16 09:00 10/29/16 08:59 09/29/16 08:23 40 MG Senna/Docusate Sodium (Senokot S Tab) 2 tab DAILY PO 09/29/16 09:00 10/29/16 08:59 09/29/16 08:24 2 TAB Sodium Biphosphate/ Sodium Phosphate (Fleet Enema) 1 ml UD PRN AR 09/28/16 23:00 10/28/16 22:59 Sotalol HCl (Betapace Tab) 80 mg BID PO 09/29/16 09:00 10/29/16 08:59 09/29/16 08:23 80 MG Piperacillin Sod/ Tazobactam Sod 1 ea 1 ea UD PRN N/A 09/28/16 23:31 10/28/16 23:30 Sodium Chloride (Nss 1000ml) 1,000 ml @ 60 mls/hr [id number] IV 09/28/16 23:15 10/28/16 23:14 09/29/16 00:08 60 MLS/HR Ipratropium [place] (Atrovent 0.02% 0.5MG/2.5ML Neb) 0.5 mg Q6R INH 09/29/16 03:00 10/29/16 02:59 09/29/16 14:13 0.5 MG Levalbuterol 1.25 mg 1.25 mg Q6R INH 09/29/16 03:00 10/29/16 02:59 09/29/16 14:13 1.25 MG Piperacillin Sod/ Tazobactam Sod/ Dextrose (Zosyn Iv/D5 100ml) 120 ml @ 30 mls/hr Q8H IV 09/29/16 04:00 10/09/16 03:59 09/29/16 13:35 30 MLS/HR Haloperidol Lactate (Haldol Inj) 2 mg Q2H PRN IM 09/29/16 05:45 10/29/16 05:44 Haloperidol (Haldol Tab) 2 mg Q4H PRN PO 09/29/16 05:45 10/29/16 05:44 Polyethylene Glycol/ Electrolytes (Golytely Soln) 0.4 dose Q4 AR 09/29/16 16:00 10/29/16 15:59 Objective Vital Signs Date Time Temp Pulse Resp B/P Pulse Ox O2 Delivery O2 Flow Rate FiO2 09/29/16 14:14 74 18 93 Nasal Cannula 4.0 09/29/16 12:49 72 139/80 94 Nasal Cannula 3.0 09/29/16 12:28 67 18 108/60 97 Nasal Cannula 4 09/29/16 12:13 69 16 125/70 96 Nasal Cannula 4 09/29/16 12:00 94 Nasal Cannula 4.0 09/29/16 11:18 37.1 73 16 144/77 97 Nasal Cannula 4 09/29/16 08:24 36.9 79 20 116/71 93 Nasal Cannula 2.0 09/29/16 08:00 92 Nasal Cannula 4.0 09/29/16 07:02 74 18 92 Nasal Cannula 4.0 09/29/16 04:00 Nasal Cannula 09/29/16 03:22 36.9 78 24 141/83 100 Mask 4.0 09/29/16 03:19 74 18 92 Nasal Cannula 4.0 09/29/16 00:25 78 18 93 Nasal Cannula 4.0 09/28/16 23:18 36.9 80 20 145/94 97 Nasal Cannula 4.0 09/28/16 22:39 79 20 158/80 99 09/28/16 21:21 74 20 159/88 100 Nasal Cannula 4.0 09/28/16 20:13 71 09/28/16 19:55 73 09/28/16 19:43 36.5 82 20 162/95 94 Nasal Cannula 2.0 Physical Exam General Appearance: + mild distress, + pertinent finding (This is an eldery man who is paraplegic, lethargic patient who is arousable with stimuli, feels weak, with abdominal pain) Respiratory/Chest: lungs clear, normal breath sounds, no respiratory distress, no accessory muscle use Cardiovascular: regular rate, rhythm, no edema, no murmur Abdomen: + abnormal bowel sounds (decreased bowel sounds), + distended, + tenderness Laboratory Results Last 24 Hours Test 09/28/16 19:45 09/28/16 20:32 09/28/16 20:38 09/28/16 20:41 Urine Color YELLOW Urine Appearance SL CLOUDY Urine pH 6.5 Urine Specific [place] 1.015 Urine Protein 2+ Urine Glucose (UA) NEG Urine Ketones NEG Urine Occult Blood 3+ Urine Nitrite POS Urine Bilirubin NEG Urine Urobilinogen NEG Urine Leukocyte Esterase LARGE Urine RBC 10-30 /hpf Urine WBC >30 /hpf Urine Epithelial Cells 10-20 /lpf Urine Renal Cells 0-5 /lpf Urine Bacteria 4+ White Blood Count 9.70 K/uL Red Blood Count 4.26 M/uL Hemoglobin 10.9 g/dL Hematocrit 33.6 % Mean Corpuscular Volume 78.9 fL Mean Corpuscular Hemoglobin 25.6 pg Mean Corpuscular Hemoglobin Concent 32.4 g/dl Platelet Count 216 K/uL Mean Platelet Volume 9.1 fL Neutrophils (%) (Auto) 79.5 % Lymphocytes (%) (Auto) 10.0 % Monocytes (%) (Auto) 8.7 % Eosinophils (%) (Auto) 1.3 % Basophils (%) (Auto) 0.2 % Neutrophils # (Auto) 7.71 K/uL Lymphocytes # (Auto) 0.97 K/uL Monocytes # (Auto) 0.84 K/uL Eosinophils # (Auto) 0.13 K/uL Basophils # (Auto) 0.02 K/uL RDW Standard Deviation 50.2 fL RDW Coefficient of Variation 17.7 % Immature Granulocyte % (Auto) 0.3 % Immature Granulocyte # (Auto) 0.03 K/uL Prothrombin Time 23.2 SECONDS Prothromb Time International Ratio 2.1 Activated Partial Thromboplast Time 57.0 SECONDS Partial Thromboplastin Ratio 2.2 Sodium Level 128 mmol/L Potassium Level 4.6 mmol/L Chloride Level 90 mmol/L Carbon Dioxide Level 30 mmol/L Anion Gap 8.0 mmol/L Blood Urea Nitrogen 24 mg/dl Creatinine 1.30 mg/dl Est Creatinine Clear Calc Drug Dose 58.5 ml/min Estimated GFR () 62.3 Estimated GFR (Non- 53.8 BUN/Creatinine Ratio 18.5 Random Glucose 137 mg/dl Calcium Level 8.9 mg/dl Total Bilirubin 0.2 mg/dl Direct Bilirubin < 0.1 mg/dl Aspartate Amino Transf (AST/SGOT) 12 U/L Alanine Aminotransferase (ALT/SGPT) 14 U/L Alkaline Phosphatase 124 U/L Total Protein 8.4 gm/dl Albumin 2.7 gm/dl Lipase 221 U/L Bedside Troponin I 0.000 ng/ml Bedside Lactic Acid Venous 2.22 mmol/L Test 09/28/16 22:17 09/29/16 06:13 09/29/16 06:24 Arterial Blood pH 7.34 Arterial Blood Partial Pressure CO2 64 mmHg Arterial Blood Partial Pressure O2 86 mm/Hg Arterial Blood HCO3 34 mmol/L Arterial Blood Oxygen Saturation 95.2 % Arterial Blood Base Excess 6.3 mEq/L Arterial Blood Gas Delivery 4.5L Junior Test POS Sodium Level 131 mmol/L 131 mmol/L Estimated Average Glucose 169 mg/dl Hemoglobin A1c 7.5 % Osmolality 284 mOsm/kg Magnesium Level 2.3 mg/dl Ammonia 12.0 umol/L Pro-B-Type Natriuretic Peptide 808 pg/ml Thyroid Stimulating Hormone (TSH) 3.620 uIu/ml White Blood Count 11.77 K/uL Red Blood Count 4.06 M/uL Hemoglobin 10.2 g/dL Hematocrit 32.0 % Mean Corpuscular Volume 78.8 fL Mean Corpuscular Hemoglobin 25.1 pg Mean Corpuscular Hemoglobin Concent 31.9 g/dl Platelet Count 215 K/uL Mean Platelet Volume 9.1 fL Neutrophils (%) (Auto) 82.1 % Lymphocytes (%) (Auto) 7.4 % Monocytes (%) (Auto) 9.3 % Eosinophils (%) (Auto) 0.8 % Basophils (%) (Auto) 0.1 % Neutrophils # (Auto) 9.67 K/uL Lymphocytes # (Auto) 0.87 K/uL Monocytes # (Auto) 1.09 K/uL Eosinophils # (Auto) 0.09 K/uL Basophils # (Auto) 0.01 K/uL RDW Standard Deviation 51.0 fL RDW Coefficient of Variation 17.6 % Immature Granulocyte % (Auto) 0.3 % Immature Granulocyte # (Auto) 0.04 K/uL Prothrombin Time 22.7 SECONDS Prothromb Time International Ratio 2.1 Potassium Level 4.0 mmol/L Chloride Level 90 mmol/L Carbon Dioxide Level 34 mmol/L Anion Gap 7.0 mmol/L Blood Urea Nitrogen 24 mg/dl Creatinine 1.30 mg/dl Est Creatinine Clear Calc Drug Dose 57.5 ml/min Estimated GFR () 62.3 Estimated GFR (Non- 53.8 BUN/Creatinine Ratio 18.1 Random Glucose 138 mg/dl Calcium Level 8.9 mg/dl Troponin I < 0.015 ng/ml Bedside Glucose 151 mg/dl Assessment and Plan This is a 76 year old male with PMH of 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 of atrial fibrillation on anticoagulation, recurrent lower extremity cellulitis, hx. of discitis, presents with recurrent sigmoid volvulus Sigmoid Volvulus presented in July with similar presentation at that time, he had a colonoscopy to decompress the volvulus at that time they recommended surgery, but he refused, knowing that recurrence was a possibility presented again from [facility] with altered mental status and abdominal distention Abdominal CT was performed showing recurrent volvulus appreciate GI input and management, they performed decompression surgery has been consulted repeat KUB in AM Metabolic Encephalopathy secondary to Recurrent UTI in the setting of Neurogenic Bladder chronic indwelling catheter cultures are pending started on Zosyn Paroxysmal A. Fib rate controlled with sotalol restart Coumadin if no surgical intervention taking place will await surgery input Diastolic CHF giving gentle hydration while NPO monitor breathing status DM2 hold oral agents insulin sliding scale will monitor BSGs with changing diet HTN continue Norvasc DVT ppx INR currently 2.1 DNR
[2016-09-29] MEDS: LAVAGE SOLUTION 4000ML PR SCH ×2 (16:30→20:14)
[2016-09-30] VITALS (12 sets, daily range): BP systolic 103–152; BP diastolic 54–70; PULSE 66–82; TEMP 36.8–37.8; O2SAT 91–97
[2016-09-30] MEDS: LAVAGE SOLUTION 4000ML PR SCH ×7 (00:09→23:42)
[2016-09-30] MEDS: INSULIN ASPART 100 UNITS/ML 3 ML PEN SC SCH ×4 (02:00→20:21)
[2016-09-30] MEDS: IPRATROPIUM BROMIDE NEB SOLN 0.02% 2.5 ML VIAL INH SCH ×2 (02:18→07:05)
[2016-09-30] MEDS: LEVALBUTEROL 1.25MG/0.5ML NEB INH SCH ×2 (02:18→07:05)
[2016-09-30] MEDS: HYDROmorphone INJ 0.5 MG/0.5 ML SYR IV PRN ×4 (03:21→22:08)
[2016-09-30] MEDS: PIPERACILL/TAZOBAC IV 4.5 GM in DEXTROSE 5% 100ML IV SCH ×3 (04:36→20:19)
[2016-09-30 07:04] LABS: BASO % 0.1 %; BASO ABS # 0.01 K/uL (0-0.2); COMPLETE YES; EOS % 0.7 %; HEMATOCRIT 33.2 % (42-52); IG% 0.3 %; LYMPH % 11.1 %; LYMPH ABS # 1.01 K/uL (1.2-3.4); MEAN CELL VOLUME 81.6 fL (80-100); MEAN CORPUSCULAR HEMOGLOBIN 25.6 pg (25-34); MEAN CORPUSCULAR HGB CONC 31.3 g/dl (32-36); MEAN PLATELET VOLUME 9.5 fL (7.4-10.4); MONO % 9.8 %; PLATELET COUNT 223 K/uL (130-400); RED BLOOD COUNT 4.07 M/uL (4.7-6.1); WHITE BLOOD COUNT 9.06 K/uL (4.8-10.8)
[2016-09-30 07:17] LABS: INR 1.9 (0.9-1.1); PROTHROMBIN TIME (PATIENT) 20.5 SECONDS (9.0-12.0)
--- NOTE | 2016-09-30 07:17 | Surgery Progress Note ---
Surgery Progress Note Date of Service Sep 30, 2016. Subjective No nausea, No vomiting Sleepy this AM Denies pain Hungry Objective Vital Signs: Date Time Temp Pulse Resp B/P Pulse Ox O2 Delivery O2 Flow Rate FiO2 09/30/16 04:00 91 Nasal Cannula 3.0 09/30/16 03:10 37.1 80 24 130/70 91 Nasal Cannula 3.0 09/30/16 02:18 74 18 95 Nasal Cannula 3.0 09/30/16 00:03 36.8 69 21 124/67 97 Nasal Cannula 3.0 09/30/16 00:01 97 Nasal Cannula 3.0 09/29/16 20:00 96 Nasal Cannula 3.0 09/29/16 19:46 36.5 76 22 137/71 96 Nasal Cannula 3.0 09/29/16 19:42 76 18 96 Nasal Cannula 3.0 09/29/16 16:00 96 Nasal Cannula 4.0 09/29/16 15:41 36.7 55 20 140/73 95 Nasal Cannula 3.0 09/29/16 14:14 74 18 93 Nasal Cannula 4.0 09/29/16 12:49 72 139/80 94 Nasal Cannula 3.0 09/29/16 12:28 67 18 108/60 97 Nasal Cannula 4 09/29/16 12:13 69 16 125/70 96 Nasal Cannula 4 09/29/16 12:00 94 Nasal Cannula 4.0 09/29/16 11:18 37.1 73 16 144/77 97 Nasal Cannula 4 09/29/16 08:24 36.9 79 20 116/71 93 Nasal Cannula 2.0 09/29/16 08:00 92 Nasal Cannula 4.0 Abdomen: non tender, soft, + distended (but less) Laboratory Results: Results Past 24 Hours Test 09/29/16 16:27 09/29/16 20:04 09/30/16 01:59 09/30/16 06:40 Range/Units Bedside Glucose 130 117 130 70-99 mg/dl White Blood Count 9.06 4.8-10.8 K/uL Red Blood Count 4.07 4.7-6.1 M/uL Hemoglobin 10.4 14.0-18.0 g/dL Hematocrit 33.2 42-52 % Mean Corpuscular Volume 81.6 80-100 fL Mean Corpuscular Hemoglobin 25.6 25-34 pg Mean Corpuscular Hemoglobin Concent 31.3 32-36 g/dl Platelet Count 223 130-400 K/uL Mean Platelet Volume 9.5 7.4-10.4 fL Neutrophils (%) (Auto) 78.0 % Lymphocytes (%) (Auto) 11.1 % Monocytes (%) (Auto) 9.8 % Eosinophils (%) (Auto) 0.7 % Basophils (%) (Auto) 0.1 % Neutrophils # (Auto) 7.06 1.4-6.5 K/uL Lymphocytes # (Auto) 1.01 1.2-3.4 K/uL Monocytes # (Auto) 0.89 0.11-0.59 K/uL Eosinophils # (Auto) 0.06 0-0.5 K/uL Basophils # (Auto) 0.01 0-0.2 K/uL RDW Standard Deviation 53.6 36.4-46.3 fL RDW Coefficient of Variation 17.8 11.5-14.5 % Immature Granulocyte % (Auto) 0.3 % Immature Granulocyte # (Auto) 0.03 0.00-0.02 K/uL Assessment & Plan Recurrent volvulus WBC normal No pain or tenderness this AM Will need sigmoid resection Will discuss timing and site with patient's POA Continue with rectal tube
[2016-09-30 07:30] LABS: BUN/CREATININE RATIO 15.6 (10-20); CALCIUM 8.6 mg/dl (8.5-10.1); CREATININE 1.2 mg/dl (0.60-1.40); POTASSIUM 3.5 mmol/L (3.5-5.1)
[2016-09-30] MEDS: FERROUS SULFATE 325 MG TAB PO SCH (08:22)
[2016-09-30] MEDS: SOTALOL HCL 80 MG TAB PO SCH ×2 (08:22→20:54)
[2016-09-30] MEDS: PANTOprazole SOD 40 MG TAB PO SCH (08:23)
[2016-09-30] MEDS: ASPIRIN 81 MG CHEW PO SCH (08:23)
[2016-09-30] MEDS: AMLODIPINE BESYLATE 5 MG TAB PO SCH (08:23)
[2016-09-30] MEDS: DOCUSATE SODIUM/SENNA 50/8.6MG TAB PO SCH (08:24)
[2016-09-30] MEDS: SODIUM CHLORIDE 0.9% 1000ML 1,000 ML IV SCH (08:24)
[2016-09-30] MEDS ORDERED: PHYTONADIONE 5 MG TAB PO STA (10:25)
--- NOTE | 2016-09-30 10:33 | Progress Note ---
Internal Med Progress Note Date of Service: Sep 30, 2016. Provider Documentation: SUBJECTIVE: remains sleepy opens eyes to voice , mentions belly hurts , no other complain can not tell whether he was able to pass gas -has rectal tube can tell that he is in Hospital -thinks it is [facility] , corrects when reoriented that he is in [facility], later [facility] [employer] falls to sleep in between sentences OBJECTIVE: Vital Signs-as noted below Exam: General-elderly male, chronically ill appearing Eyes-sclera non icteric, ENT-dry oral mucosa Lungs-no wheeze or rales Heart-regular Abdomen-distended, soft, bowel sound active /hyper pitched on left quadrant Extremities--warm /erythematous area on rt lower leg /chronic venous stasis change on left lower leg , + 2-3 pedal edema , un stageable sacral wound on both buttock and sacral area Neuro-lethargic, sleepy , opens eyes to voice , paraplegic at baseline Lab data as noted below. ASSESSMENT & PLAN: RECURRENT Sigmoid Volvulus last admission in July with similar presentation-had colonoscopic decompression pt refused surgery in that time presented again from [facility] with altered mental status and abdominal distention Abdominal CT shows recurrent Sigmoid volvulus appreciate GI input and management, s/p Colonoscopic decompression followed by sigmoid colon tube placement repeat KUB in AM-shows no significant bowel dilatation , colonic tube in sigmoid colon surgery has been consulted-appreciate input -pt will need Surgical resection of Sigmoid colon to prevent future obstruction D/w POA -Pt's Cousin Darius Gould contact number [phone]. agreeable for Surgery -but prefers not to have Colostomy wants to discuss with Surgery team and medical team -possible a meeting to make decision Surgery team updated Lethargy /Changed Mental status -due to Metabolic Encephalopathy in setting of sigmoid volvulus /dehydration /possible UTI /leg cellulitis -still remains sleepy -opening eyes to voice , able to follow simple commands cont to monitor RT Lower ext cellulitis : red /increased warmth /tender on rt lower ext on Zosyn Sacral wound : present on admission evaluated with wound care nurse buttock wound appear to be hard and boggy need to R/o abscess /underlying fluid collection wound care Dr Julian Cam consulted Possible UTI : due to chronic indwelling catheter in setting of Neurogenic bladder on Zosyn Urine culture -pin point growth -re incubating -will follow HX OF Paroxysmal A. Fib rate controlled with sotalol Coumadin on hold for possible colon surgery 2 mg PO vit K ordered INR 1.9 today follow INR HX OF Diastolic CHF appears to be dehydrated given gentle hydration monitor vol status DM2 hold oral agents-pt is NPO insulin sliding scale DVT ppx INR currently 1.9 DNR DISPOSITION : was at [facility] possible return to [place] when medically stable social service consulted for discharge planning -update given to Darius GONSALEZ Contact WALLACE Gould -Cousin contact number [phone]. Vital Signs: Date Time Temp Pulse Resp B/P Pulse Ox O2 Delivery O2 Flow Rate FiO2 09/30/16 12:00 37.0 74 22 127/67 94 Nasal Cannula 3.0 09/30/16 12:00 Nasal Cannula 3.0 09/30/16 08:00 Nasal Cannula 3.0 09/30/16 07:33 36.8 68 20 107/54 93 Nasal Cannula 2.0 09/30/16 07:05 68 18 96 Nasal Cannula 3.0 09/30/16 04:00 91 Nasal Cannula 3.0 09/30/16 03:10 37.1 80 24 130/70 91 Nasal Cannula 3.0 09/30/16 02:18 74 18 95 Nasal Cannula 3.0 09/30/16 00:03 36.8 69 21 124/67 97 Nasal Cannula 3.0 09/30/16 00:01 97 Nasal Cannula 3.0 09/29/16 20:00 96 Nasal Cannula 3.0 09/29/16 19:46 36.5 76 22 137/71 96 Nasal Cannula 3.0 09/29/16 19:42 76 18 96 Nasal Cannula 3.0 09/29/16 16:00 96 Nasal Cannula 4.0 09/29/16 15:41 36.7 55 20 140/73 95 Nasal Cannula 3.0 Lab Results: Results Past 24 Hours Test 09/29/16 16:27 09/29/16 20:04 09/30/16 01:59 09/30/16 06:40 Range/Units Bedside Glucose 130 117 130 70-99 mg/dl White Blood Count 9.06 4.8-10.8 K/uL Red Blood Count 4.07 4.7-6.1 M/uL Hemoglobin 10.4 14.0-18.0 g/dL Hematocrit 33.2 42-52 % Mean Corpuscular Volume 81.6 80-100 fL Mean Corpuscular Hemoglobin 25.6 25-34 pg Mean Corpuscular Hemoglobin Concent 31.3 32-36 g/dl Platelet Count 223 130-400 K/uL Mean Platelet Volume 9.5 7.4-10.4 fL Neutrophils (%) (Auto) 78.0 % Lymphocytes (%) (Auto) 11.1 % Monocytes (%) (Auto) 9.8 % Eosinophils (%) (Auto) 0.7 % Basophils (%) (Auto) 0.1 % Neutrophils # (Auto) 7.06 1.4-6.5 K/uL Lymphocytes # (Auto) 1.01 1.2-3.4 K/uL Monocytes # (Auto) 0.89 0.11-0.59 K/uL Eosinophils # (Auto) 0.06 0-0.5 K/uL Basophils # (Auto) 0.01 0-0.2 K/uL RDW Standard Deviation 53.6 36.4-46.3 fL RDW Coefficient of Variation 17.8 11.5-14.5 % Immature Granulocyte % (Auto) 0.3 % Immature Granulocyte # (Auto) 0.03 0.00-0.02 K/uL Prothrombin Time 20.5 9.0-12.0 SECONDS Prothromb Time International Ratio 1.9 0.9-1.1 Sodium Level 134 136-145 mmol/L Potassium Level 3.5 3.5-5.1 mmol/L Chloride Level 94 98-107 mmol/L Carbon Dioxide Level 29 21-32 mmol/L Anion Gap 11.0 3-11 mmol/L Blood Urea Nitrogen 19 7-18 mg/dl Creatinine 1.20 0.60-1.40 mg/dl Est Creatinine Clear Calc Drug Dose 61.9 ml/min Estimated GFR () 68.6 Estimated GFR (Non- 59.2 BUN/Creatinine Ratio 15.6 10-20 Random Glucose 131 70-99 mg/dl Calcium Level 8.6 8.5-10.1 mg/dl Test 09/30/16 14:14 Range/Units Bedside Glucose 119 70-99 mg/dl Microbiology Results 09/30/16 MRSA DNA Surveillance Screen - Final, Complete Specimen Positive for MRSA by DNA Probe 09/30/16 C.difficile Toxin B Gene (PCR) - Final, Complete No C. difficile toxin B gene detected
--- NOTE | 2016-09-30 11:17 | DIAGNOSTIC IMAGING REPORT ---
KUB CLINICAL HISTORY: Sigmoid volvulus. COMPARISON STUDY: 09/29/2016 FINDINGS: The study is limited from a technical standpoint. Postsurgical changes involve the right hemipelvis. There is a chronic right hip deformity. A colonic tube is visualized. The tube is likely positioned within the sigmoid. There is no significant bowel dilatation. IMPRESSION: No significant bowel dilatation. Electronically signed by: Hitesh Fajardo M.D. 09/30/2016 11:16 AM Dictated Date/Time: 09/30/2016 11:15 AM
[2016-09-30] MEDS ORDERED: PHYTONADIONE PED INJ 2 MG, ORA-SWEET SYRUP 2.25 ML, ORA-PLUS SUSP. VEHICLE 2.25 ML, BAR... PO ONE ×3 (11:30)
--- NOTE | 2016-09-30 11:40 | Gastroenterology Progress Note ---
Progress Note Date of Service: Sep 30, 2016 Subjective Pt evaluation today including: conversation w/ patient, physical exam, lab review, review of studies, review of inpatient medication list Mr. Gould is a 76 yr old male with a hx of LTKA on 09/09 with recurrent sigmoid volvulus S/P endoscopic insertion of a rectal tube yesterday. Today, abdomen moderately distended, moderately tender on palpation but not taunt. BS present but hypoactive. Rectal tube in place with golytely through the tube with return of clear/yellow liquid with tiny flakes of solid dark brown stool draining through the tube. KUB today with rectal tube in the sigmoid. No colon distention. Discussed with Dr. Whitfield and the plan is for surgical reduction of the volvulus by Dr. Garcia after INR is reversed - in the next few days. Review of Systems Pt denies pain; doesn't answer questions, unable to obtain ROS from the pt. Pt is afebrile, normotensive, pulse ox low 90's with 2 or 3 L O2. Medications Current Inpatient Medications Medications (Trade) Dose Ordered Sig/Betzy Route Start Time Stop Time Status Last Admin Dose Admin Acetaminophen (Tylenol Tab) 650 mg Q4H PRN PO 09/28/16 23:00 10/28/16 22:59 Nitroglycerin (Nitrostat Tab) 0.4 mg UD PRN SL 09/28/16 23:00 10/28/16 22:59 Glucose (Glucose 40% Gel) 15-30 GRAMS 15 GRAMS... UD PRN PO 09/28/16 23:00 10/28/16 22:59 Glucose (Glucose Chew Tab) 4-8 Tablets 4 Tabl... UD PRN PO 09/28/16 23:00 10/28/16 22:59 Dextrose (Dextrose 50% 50ML Syringe) 25-50ML OF 50% DW IV FOR... UD PRN IV 09/28/16 23:00 10/28/16 22:59 Glucagon (Glucagon Inj) 1 mg UD PRN SQ 09/28/16 23:00 10/28/16 22:59 Hydromorphone HCl (Dilaudid Inj) 0.5 mg Q3H PRN IV 09/28/16 23:00 10/12/16 22:59 09/30/16 03:21 0.5 MG Ondansetron HCl 4 mg 4 mg Q6H PRN IV 09/28/16 23:00 10/28/16 22:59 Promethazine HCl/ Sodium Chloride (Phenergan Inj/ Nss 50ml) 50.5 ml @ 204 mls/hr Q6H PRN IV 09/28/16 23:00 10/28/16 22:59 Amlodipine Besylate (Norvasc Tab) 5 mg DAILY PO 09/29/16 09:00 10/29/16 08:59 Future Hold 09/30/16 08:23 5 MG Aspirin (Aspirin Chew) 81 mg QAM PO 09/29/16 09:00 10/29/16 08:59 Future Hold 09/30/16 08:23 81 MG Ferrous Sulfate (Feosol Tab) 325 mg BIDM PO 09/29/16 07:30 10/29/16 07:59 Future Hold 09/30/16 08:22 325 MG Senna/Docusate Sodium (Senokot S Tab) 2 tab DAILY PO 09/29/16 09:00 10/29/16 08:59 09/30/16 08:24 2 TAB Sodium Biphosphate/ Sodium Phosphate (Fleet Enema) 1 ml UD PRN NJ 09/28/16 23:00 10/28/16 22:59 Sotalol HCl (Betapace Tab) 80 mg BID PO 09/29/16 09:00 10/29/16 08:59 09/30/16 08:22 80 MG Piperacillin Sod/ Tazobactam Sod 1 ea 1 ea UD PRN N/A 09/28/16 23:31 10/28/16 23:30 Sodium Chloride 1,000 ml @ 60 mls/hr [id number] IV 09/28/16 23:15 10/28/16 23:14 09/30/16 08:24 60 MLS/HR Piperacillin Sod/ Tazobactam Sod/ Dextrose (Zosyn Iv/D5 100ml) 120 ml @ 30 mls/hr Q8H IV 09/29/16 04:00 10/09/16 03:59 09/30/16 04:36 30 MLS/HR Haloperidol Lactate (Haldol Inj) 2 mg Q2H PRN IM 09/29/16 05:45 10/29/16 05:44 Haloperidol (Haldol Tab) 2 mg Q4H PRN PO 09/29/16 05:45 10/29/16 05:44 Polyethylene Glycol/ Electrolytes (Golytely Soln) 0.4 dose Q4 NJ 09/29/16 16:00 10/29/16 15:59 09/30/16 08:17 0.4 DOSE Insulin Aspart SLIDING SCALE If C... Q6H SC 09/29/16 20:00 10/29/16 19:59 Pantoprazole Sodium/Syringe (Protonix Inj/ Syringe) 10 ml @ 5 mls/min DAILY@11 IV 09/30/16 11:00 10/30/16 10:59 UNV Ipratropium Josephine (Atrovent 0.02% 0.5MG/2.5ML Neb) 0.5 mg Q6R PRN INH 09/30/16 15:00 10/30/16 14:59 UNV Levalbuterol (Xopenex 1.25MG/ 0.5ML Neb) 1.25 mg Q6R PRN INH 09/30/16 15:00 10/30/16 14:59 UNV Phytonadione (Mephyton Tab) 2 mg NOW STAT PO 09/30/16 10:25 09/30/16 10:26 UNV Objective Vital Signs Date Time Temp Pulse Resp B/P Pulse Ox O2 Delivery O2 Flow Rate FiO2 09/30/16 08:00 Nasal Cannula 3.0 09/30/16 07:33 36.8 68 20 107/54 93 Nasal Cannula 2.0 09/30/16 07:05 68 18 96 Nasal Cannula 3.0 09/30/16 04:00 91 Nasal Cannula 3.0 09/30/16 03:10 37.1 80 24 130/70 91 Nasal Cannula 3.0 09/30/16 02:18 74 18 95 Nasal Cannula 3.0 09/30/16 00:03 36.8 69 21 124/67 97 Nasal Cannula 3.0 09/30/16 00:01 97 Nasal Cannula 3.0 09/29/16 20:00 96 Nasal Cannula 3.0 09/29/16 19:46 36.5 76 22 137/71 96 Nasal Cannula 3.0 09/29/16 19:42 76 18 96 Nasal Cannula 3.0 09/29/16 16:00 96 Nasal Cannula 4.0 09/29/16 15:41 36.7 55 20 140/73 95 Nasal Cannula 3.0 09/29/16 14:14 74 18 93 Nasal Cannula 4.0 09/29/16 12:49 72 139/80 94 Nasal Cannula 3.0 09/29/16 12:28 67 18 108/60 97 Nasal Cannula 4 09/29/16 12:13 69 16 125/70 96 Nasal Cannula 4 09/29/16 12:00 94 Nasal Cannula 4.0 Physical Exam General Appearance: no apparent distress Neck: no JVD Respiratory/Chest: no respiratory distress, + wheezing (mild, scattered), + pertinent finding (cough during exam) Cardiovascular: regular rate, rhythm, no JVD, no murmur Abdomen: non tender (no indication of tenderness on palpation), + abnormal bowel sounds (hypoactive), + distended Neurologic/Psych: alert, normal mood/affect, oriented x 3 Skin: normal color, no jaundice, no rash Laboratory Results Last 24 Hours Test 09/29/16 16:27 09/29/16 20:04 09/30/16 01:59 09/30/16 06:40 Bedside Glucose 130 mg/dl 117 mg/dl 130 mg/dl White Blood Count 9.06 K/uL Red Blood Count 4.07 M/uL Hemoglobin 10.4 g/dL Hematocrit 33.2 % Mean Corpuscular Volume 81.6 fL Mean Corpuscular Hemoglobin 25.6 pg Mean Corpuscular Hemoglobin Concent 31.3 g/dl Platelet Count 223 K/uL Mean Platelet Volume 9.5 fL Neutrophils (%) (Auto) 78.0 % Lymphocytes (%) (Auto) 11.1 % Monocytes (%) (Auto) 9.8 % Eosinophils (%) (Auto) 0.7 % Basophils (%) (Auto) 0.1 % Neutrophils # (Auto) 7.06 K/uL Lymphocytes # (Auto) 1.01 K/uL Monocytes # (Auto) 0.89 K/uL Eosinophils # (Auto) 0.06 K/uL Basophils # (Auto) 0.01 K/uL RDW Standard Deviation 53.6 fL RDW Coefficient of Variation 17.8 % Immature Granulocyte % (Auto) 0.3 % Immature Granulocyte # (Auto) 0.03 K/uL Prothrombin Time 20.5 SECONDS Prothromb Time International Ratio 1.9 Sodium Level 134 mmol/L Potassium Level 3.5 mmol/L Chloride Level 94 mmol/L Carbon Dioxide Level 29 mmol/L Anion Gap 11.0 mmol/L Blood Urea Nitrogen 19 mg/dl Creatinine 1.20 mg/dl Est Creatinine Clear Calc Drug Dose 61.9 ml/min Estimated GFR () 68.6 Estimated GFR (Non- 59.2 BUN/Creatinine Ratio 15.6 Random Glucose 131 mg/dl Calcium Level 8.6 mg/dl Assessment and Plan Mr. Gould is a 76 yr old male with a recurrent sigmoid volvulus who underwent endoscopic reduction with placement of a rectal tube which remains in place. No colon distention on KUB today. Plan: 1. Please keep rectal tube in place, OK to use to deliver Golytely. 2. Appreciate surgical input and agree with eventual surgical treatment. 3. Avoid narcotics as much as possible to allow motility. 4. GI will continue to follow. ATTESTATION: I have performed a history and physical examination of this patient and reviewed the electronic record. Specifically, on physical examination the abdomen is soft and mildly distended. I have discussed the case with HOPE Landon. The above note reflects my findings, conclusions, and recommendations. Hu Vallejo MD
[2016-09-30] MEDS ORDERED: LEVALBUTEROL 1.25MG/0.5ML NEB INH PRN (12:00)
[2016-09-30] MEDS ORDERED: IPRATROPIUM BROMIDE NEB SOLN 0.02% 2.5 ML VIAL INH PRN (12:00)
[2016-09-30] MEDS ORDERED: EUCERIN CR 120 GM JAR EXT PRN (13:15)
--- NOTE | 2016-09-30 13:17 | Clinical Documentation Query ---
CLINICAL DOCUMENTATION QUERY Dr. CAR, In your clinical opinion is this patient being managed for: ( x ) UTI possibly due to chronic indwelling kohli catheter ( ) Other explanation of clinical findings (Please Explain) ( ) Unable to determine (Please Define) ( ) Need to Discuss ( ) Not Agree The medical record reflects the following clinical findings, treatment, and risk factors. Clinical Indicators: 76 yo male with a complicated UTI. Documentation reflects pt has a chronic kohli catheter due to a neurogenic bladder. UA with LE large, WBC > 30, bacteria +4. Culture is pending Treatment: IV zosyn, kohli catheter changed Risk Factors: chronic kohli catheter Please clarify and document your clinical opinion in the progress notes and discharge summary. Terms such as "probable", "suspected", "likely", "questionable", "possible", or "still to be ruled out" are acceptable. IF IN AGREEMENT, YOU MUST DOCUMENT ABOVE DIAGNOSTIC STATEMENT IN DAILY PROGRESS NOTES AND DISCHARGE SUMMARY. This document is not part of the patient's record. Thank You, Lianne Stevenson, MARVIN [phone]
[2016-09-30] MEDS: ACETAMINOPHEN 325 MG TAB PO PRN (13:51)
--- NOTE | 2016-09-30 15:37 | Progress Note ---
Progress Note Date of Service Sep 30, 2016. Progress Note ATTENDING NOTE : Pt's Cousin WALLACE Gould would like to meet surgery and medicine team to discuss Surgery option Dr Garcia will be available at 5 PM Mr Gould updated -will be at [facility] today at 5 pm
[2016-09-30] MEDS ORDERED: SODIUM CHLORIDE 0.65% NA SOLN 45 ML (OCEAN) NAE PRN (17:45)
[2016-09-30] MEDS ORDERED: MAGNESIUM HYDROXIDE SUSP 30 ML UDC PO PRN (17:45)
[2016-09-30] MEDS ORDERED: FUROSEMIDE INJ 20 MG in SYRINGE 0 ML IV SCH (18:30)
[2016-09-30] MEDS: PREGABALIN 75 MG CAP PO SCH (19:21)
[2016-09-30] MEDS: SODIUM CHLORIDE 0.65% NA SOLN 45 ML (OCEAN) NAE SCH ×3 (19:22→23:16)
[2016-09-30] MEDS: EUCERIN CR 120 GM JAR EXT SCH (20:53)
[2016-09-30] MEDS: AMITRIPTYLINE HCL 10 MG TAB PO SCH (20:55)
[2016-09-30] MEDS: BACLOFEN TAB 20 MG TAB PO SCH (20:55)
[2016-09-30] MEDS: SIMETHICONE 80 MG CHEW PO SCH (20:56)
[2016-09-30] MEDS: LANOLIN/PETROLATUM 30 GM TUBE EXT SCH ×2 (21:24)
--- NOTE | 2016-09-30 21:34 | DIAGNOSTIC IMAGING REPORT ---
KUB HISTORY: ? Colon dilation COMPARISON: KUB 09/30/2016. FINDINGS: There again noted postoperative changes at the right hip. A colonic tube remains unchanged in position. No pneumoperitoneum. No pneumatosis. The large and small bowel are normal in caliber. No dilated loops of bowel. The right side of the colon is gas-filled. No renal calculi. No ureteral calculi. IMPRESSION: No significant bowel dilatation. Electronically signed by: Jorge Veronica M.D. 09/30/2016 9:32 PM Dictated Date/Time: 09/30/2016 9:31 PM
[2016-10-01] VITALS (8 sets, daily range): BP systolic 115–138; BP diastolic 63–90; PULSE 66–84; TEMP 36.7–37.9; O2SAT 91–98
[2016-10-01] MEDS: HYDROmorphone INJ 0.5 MG/0.5 ML SYR IV PRN ×2 (01:07→04:29)
[2016-10-01] MEDS: INSULIN ASPART 100 UNITS/ML 3 ML PEN SC SCH ×4 (02:00→20:54)
[2016-10-01] MEDS: LAVAGE SOLUTION 4000ML PR SCH ×4 (04:18→16:00)
[2016-10-01] MEDS: PIPERACILL/TAZOBAC IV 4.5 GM in DEXTROSE 5% 100ML IV SCH ×2 (04:18→11:42)
[2016-10-01 06:23] LABS: HEMATOCRIT 30.9 % (42-52); MEAN CELL VOLUME 80.9 fL (80-100); MEAN CORPUSCULAR HEMOGLOBIN 25.4 pg (25-34); MEAN CORPUSCULAR HGB CONC 31.4 g/dl (32-36); MEAN PLATELET VOLUME 9.1 fL (7.4-10.4); PLATELET COUNT 245 K/uL (130-400); RED BLOOD COUNT 3.82 M/uL (4.7-6.1); WHITE BLOOD COUNT 10.31 K/uL (4.8-10.8)
[2016-10-01 06:29] LABS: INR 1.4 (0.9-1.1); PROTHROMBIN TIME (PATIENT) 14.9 SECONDS (9.0-12.0)
[2016-10-01 06:49] LABS: BUN/CREATININE RATIO 11.7 (10-20); CALCIUM 8.8 mg/dl (8.5-10.1); CREATININE 1.5 mg/dl (0.60-1.40); POTASSIUM 3.2 mmol/L (3.5-5.1)
[2016-10-01] MEDS: LAVAGE SOLUTION 4000ML PO SCH (07:28)
[2016-10-01] MEDS: SODIUM CHLORIDE 0.65% NA SOLN 45 ML (OCEAN) NAE SCH ×8 (07:40→23:18)
[2016-10-01] MEDS: LANOLIN/PETROLATUM 30 GM TUBE EXT SCH ×4 (07:40→20:52)
[2016-10-01] MEDS: BACLOFEN TAB 20 MG TAB PO SCH ×2 (07:41→20:47)
[2016-10-01] MEDS: DULOXETINE HCL 60 MG CAP PO SCH (07:41)
[2016-10-01] MEDS: AMITRIPTYLINE HCL 10 MG TAB PO SCH ×2 (07:41→20:45)
[2016-10-01] MEDS: DOCUSATE SODIUM/SENNA 50/8.6MG TAB PO SCH (07:41)
[2016-10-01] MEDS: SOTALOL HCL 80 MG TAB PO SCH ×2 (07:42→20:46)
[2016-10-01] MEDS: SIMETHICONE 80 MG CHEW PO SCH ×3 (07:43→20:45)
[2016-10-01] MEDS: PREGABALIN 75 MG CAP PO SCH ×2 (07:46→20:45)
--- NOTE | 2016-10-01 08:13 | DIAGNOSTIC IMAGING REPORT ---
KUB CLINICAL HISTORY: sigmoid volvulus pain COMPARISON STUDY: 09/30/2016 FINDINGS: Nonobstructive bowel pattern. Rectal tube in position. IMPRESSION: Nonobstructive bowel pattern. Rectal tube in position. Electronically signed by: Julian Vargas M.D. 10/01/2016 8:12 AM Dictated Date/Time: 10/01/2016 8:09 AM
--- NOTE | 2016-10-01 08:14 | DIAGNOSTIC IMAGING REPORT ---
CHEST ONE VIEW PORTABLE CLINICAL HISTORY: CHF dyspnea COMPARISON STUDY: No previous studies for comparison. FINDINGS: Mild stable cardiomegaly. Pulmonary vasculature prominence. Diaphragms smooth. IMPRESSION: Mild prominence of pulmonary vasculature. No change from the prior exam. Electronically signed by: Julian Vargas M.D. 10/01/2016 8:13 AM Dictated Date/Time: 10/01/2016 8:12 AM
[2016-10-01] MEDS ORDERED: FUROSEMIDE 20 MG TAB PO SCH (09:00)
[2016-10-01] MEDS ORDERED: POTASSIUM CHLR 10 MEQ / WTR 10 MEQ in PREMIXED WATER 100 ML IV SCH (11:00)
[2016-10-01] MEDS: PANTOprazole INJ 40 MG in SYRINGE 0 ML IV SCH (11:17)
[2016-10-01] MEDS ORDERED: BOOST BREEZE NUTRITION DRINK 1 BOX PO SCH (11:30)
[2016-10-01] MEDS ORDERED: POTASSIUM CHLORIDE 20 MEQ/15 ML UDC PO STA (11:52)
[2016-10-01] MEDS: BOOST BREEZE NUTRITION DRINK 1 BOX PO SCH ×2 (11:55→16:45)
--- NOTE | 2016-10-01 11:55 | Gastroenterology Progress Note ---
Progress Note Date of Service: Oct 01, 2016 Subjective Pt evaluation today including: conversation w/ patient, physical exam Review of Systems Constitutional: No fever Respiratory: No cough Cardiac: No chest pain Abdomen: + pain (c/o pain) Male : No dysuria Neuro: + problem reported (Seems more alert today. Answers simple questions. ) Psych: No depression symptoms Heme: No abnormal bleeding/bruising Endo: No problem reported Skin: No jaundice Medications Current Inpatient Medications Medications (Trade) Dose Ordered Sig/Betzy Route Start Time Stop Time Status Last Admin Dose Admin Acetaminophen (Tylenol Tab) 650 mg Q4H PRN PO 09/28/16 23:00 10/28/16 22:59 09/30/16 13:51 650 MG Nitroglycerin (Nitrostat Tab) 0.4 mg UD PRN SL 09/28/16 23:00 10/28/16 22:59 Glucose (Glucose 40% Gel) 15-30 GRAMS 15 GRAMS... UD PRN PO 09/28/16 23:00 10/28/16 22:59 Glucose (Glucose Chew Tab) 4-8 Tablets 4 Tabl... UD PRN PO 09/28/16 23:00 10/28/16 22:59 Dextrose (Dextrose 50% 50ML Syringe) 25-50ML OF 50% DW IV FOR... UD PRN IV 09/28/16 23:00 10/28/16 22:59 Glucagon (Glucagon Inj) 1 mg UD PRN SQ 09/28/16 23:00 10/28/16 22:59 Hydromorphone HCl (Dilaudid Inj) 0.5 mg Q3H PRN IV 09/28/16 23:00 10/12/16 22:59 10/01/16 04:29 0.5 MG Ondansetron HCl 4 mg 4 mg Q6H PRN IV 09/28/16 23:00 10/28/16 22:59 Promethazine HCl/ Sodium Chloride (Phenergan Inj/ Nss 50ml) 50.5 ml @ 204 mls/hr Q6H PRN IV 09/28/16 23:00 10/28/16 22:59 Amlodipine Besylate (Norvasc Tab) 5 mg DAILY PO 09/29/16 09:00 10/29/16 08:59 Future Hold 09/30/16 08:23 5 MG Aspirin (Aspirin Chew) 81 mg QAM PO 09/29/16 09:00 10/29/16 08:59 Future Hold 09/30/16 08:23 81 MG Ferrous Sulfate (Feosol Tab) 325 mg BIDM PO 09/29/16 07:30 10/29/16 07:59 Future Hold 09/30/16 08:22 325 MG Senna/Docusate Sodium (Senokot S Tab) 2 tab DAILY PO 09/29/16 09:00 10/29/16 08:59 10/01/16 07:41 2 TAB Sodium Biphosphate/ Sodium Phosphate (Fleet Enema) 1 ml UD PRN NJ 09/28/16 23:00 10/28/16 22:59 Sotalol HCl (Betapace Tab) 80 mg BID PO 09/29/16 09:00 10/29/16 08:59 10/01/16 07:42 80 MG Piperacillin Sod/ Tazobactam Sod 1 ea 1 ea UD PRN N/A 09/28/16 23:31 10/28/16 23:30 Piperacillin Sod/ Tazobactam Sod/ Dextrose (Zosyn Iv/D5 100ml) 120 ml @ 30 mls/hr Q8H IV 09/29/16 04:00 10/09/16 03:59 10/01/16 11:42 30 MLS/HR Polyethylene Glycol/ Electrolytes (Golytely Soln) 0.4 dose Q4 NJ 09/29/16 16:00 10/29/16 15:59 10/01/16 11:41 0.4 DOSE Insulin Aspart SLIDING SCALE If C... Q6H SC 09/29/16 20:00 10/29/16 19:59 09/30/16 20:21 1 UNITS Pantoprazole Sodium/Syringe (Protonix Inj/ Syringe) 10 ml @ 5 mls/min DAILY@11 IV 10/01/16 11:00 10/31/16 10:59 10/01/16 11:17 5 MLS/MIN Ipratropium [place] (Atrovent 0.02% 0.5MG/2.5ML Neb) 0.5 mg Q6H PRN INH 09/30/16 12:00 10/30/16 11:59 Levalbuterol (Xopenex 1.25MG/ 0.5ML Neb) 1.25 mg Q6H PRN INH 09/30/16 12:00 10/30/16 11:59 Multi-Ingredient Ointment (Eucerin Unscented Cr) 1 appln BID PRN EXT 09/30/16 13:15 10/30/16 13:14 Polyethylene Glycol/ Electrolytes (Golytely Soln) 8 dose DAILY@0800 PO 10/01/16 08:00 10/02/16 23:59 10/01/16 07:28 8 DOSE Amitriptyline HCl (Elavil Tab) 10 mg BID PO 09/30/16 21:00 10/30/16 20:59 10/01/16 07:41 10 MG Baclofen (Lioresal Tab) 20 mg BID PO 09/30/16 21:00 10/30/16 20:59 10/01/16 07:41 20 MG Duloxetine HCl (Cymbalta Cap) 60 mg QAM PO 10/01/16 09:00 10/31/16 08:59 10/01/16 07:41 60 MG Furosemide (Lasix Tab) 20 mg QAM PO 10/01/16 09:00 10/31/16 08:59 Future Hold 10/01/16 07:41 20 MG Magnesium Hydroxide (Milk Of Magnesia Susp) 30 ml UD PRN PO 09/30/16 17:45 10/30/16 17:44 Pregabalin (Lyrica Cap) 75 mg BID PO 09/30/16 18:30 10/30/16 18:29 10/01/16 07:46 75 MG Sodium Chloride ([place] Nasal [place]) 2 sprays Q4H PRN SABRINA 09/30/16 17:45 10/30/16 17:44 Sodium Chloride ([place] Nasal [place]) 2 sprays 0700,0900,1100,1500 SABRINA 10/01/16 07:00 10/31/16 06:59 10/01/16 11:17 2 SPRAYS Multi-Ingredient Ointment (Eucerin Unscented Cr) 1 appln HS EXT 09/30/16 21:00 10/30/16 20:59 09/30/16 20:53 1 APPLN Simethicone (Mylicon Chew Tab) 120 mg TID PO 09/30/16 21:00 10/30/16 20:59 10/01/16 07:43 120 MG Multi-Ingredient Ointment (Desitin Oint) 1 gm BID EXT 09/30/16 21:00 10/30/16 20:59 10/01/16 07:40 1 GM Sodium Chloride 2 sprays 2 sprays 1700,1900,2100,2300 SABRINA 09/30/16 19:00 10/30/16 18:59 09/30/16 23:16 2 SPRAYS Potassium Chloride/Prmx (Kcl 10 Meq / Wtr/Premixed Water) 100 ml @ 100 mls/hr Q1H IV 10/01/16 11:00 10/01/16 14:59 10/01/16 11:16 100 MLS/HR Enteral Nutritional Formula (Boost Breeze Nutritional Drink) 0.5 box TIDM PO 10/01/16 11:30 10/31/16 11:29 Objective Vital Signs Date Time Temp Pulse Resp B/P Pulse Ox O2 Delivery O2 Flow Rate FiO2 10/01/16 11:12 37.0 73 16 138/90 94 Nasal Cannula 3.0 10/01/16 08:11 Nasal Cannula 3.0 10/01/16 08:00 Nasal Cannula 3.0 10/01/16 07:51 37.3 78 24 120/64 91 Nasal Cannula 4.0 10/01/16 04:00 91 Nasal Cannula 4.0 10/01/16 03:28 37.9 84 26 119/66 91 Nasal Cannula 4.0 10/01/16 00:01 93 Nasal Cannula 4.0 09/30/16 23:40 37.8 82 26 152/67 93 Nasal Cannula 4.0 09/30/16 20:00 95 Nasal Cannula 2.0 09/30/16 19:25 37.0 72 20 120/61 95 Nasal Cannula 2.0 09/30/16 16:00 Nasal Cannula 3.0 09/30/16 15:31 36.8 66 18 103/59 95 09/30/16 12:00 37.0 74 22 127/67 94 Nasal Cannula 3.0 09/30/16 12:00 Nasal Cannula 3.0 Physical Exam General Appearance: + mild distress (abdominal discomfort) Neck: no JVD Respiratory/Chest: lungs clear (much improved from yesterday) Cardiovascular: no JVD, no murmur Abdomen: non tender, soft Extremities: non-tender Neurologic/Psych: alert, normal mood/affect, oriented x 3 Skin: no jaundice Laboratory Results Last 24 Hours Test 09/30/16 14:14 09/30/16 19:57 10/01/16 01:58 10/01/16 06:00 Bedside Glucose 119 mg/dl 187 mg/dl 140 mg/dl White Blood Count 10.31 K/uL Red Blood Count 3.82 M/uL Hemoglobin 9.7 g/dL Hematocrit 30.9 % Mean Corpuscular Volume 80.9 fL Mean Corpuscular Hemoglobin 25.4 pg Mean Corpuscular Hemoglobin Concent 31.4 g/dl RDW Standard Deviation 52.8 fL RDW Coefficient of Variation 17.6 % Platelet Count 245 K/uL Mean Platelet Volume 9.1 fL Prothrombin Time 14.9 SECONDS Prothromb Time International Ratio 1.4 Sodium Level 136 mmol/L Potassium Level 3.2 mmol/L Chloride Level 93 mmol/L Carbon Dioxide Level 31 mmol/L Anion Gap 12.0 mmol/L Blood Urea Nitrogen 18 mg/dl Creatinine 1.50 mg/dl Est Creatinine Clear Calc Drug Dose 49.5 ml/min Estimated GFR () 52.4 Estimated GFR (Non- 45.2 BUN/Creatinine Ratio 11.7 Random Glucose 129 mg/dl Calcium Level 8.8 mg/dl Test 10/01/16 06:36 Bedside Glucose 142 mg/dl Assessment and Plan Mr. Gould is a 76 yr old male with a recurrent sigmoid volvulus who underwent endoscopic reduction with placement of a rectal tube which remains in place. No colon distention on KUB today. Plan: 1. Please keep rectal tube in place, OK to use to deliver Golytely. 2. Appreciate surgical input and agree with eventual surgical treatment. 3. Avoid narcotics as much as possible to allow motility. ATTESTATION: I have performed a history and physical examination of this patient and reviewed the electronic record. Specifically, on physical examination abdomen remains mildly distended. For surgery Thursday. I have discussed the case with HOPE Landon. The above note reflects my findings, conclusions, and recommendations. Hu Vallejo MD
--- NOTE | 2016-10-01 14:07 | Surgery Progress Note ---
Surgery Progress Note Date of Service Oct 01, 2016. Subjective Post OP Day: HD # 3 +back and leg pain No abdominal pain tolerated diet no nausea or vomiting +shortness of breath Objective Vital Signs: Date Time Temp Pulse Resp B/P Pulse Ox O2 Delivery O2 Flow Rate FiO2 10/01/16 12:00 Nasal Cannula 3.0 10/01/16 11:12 37.0 73 16 138/90 94 Nasal Cannula 3.0 10/01/16 08:11 Nasal Cannula 3.0 10/01/16 08:00 Nasal Cannula 3.0 10/01/16 07:51 37.3 78 24 120/64 91 Nasal Cannula 4.0 10/01/16 04:00 91 Nasal Cannula 4.0 10/01/16 03:28 37.9 84 26 119/66 91 Nasal Cannula 4.0 10/01/16 00:01 93 Nasal Cannula 4.0 09/30/16 23:40 37.8 82 26 152/67 93 Nasal Cannula 4.0 09/30/16 20:00 95 Nasal Cannula 2.0 09/30/16 19:25 37.0 72 20 120/61 95 Nasal Cannula 2.0 09/30/16 16:00 Nasal Cannula 3.0 09/30/16 15:31 36.8 66 18 103/59 95 General Appearance: WD/WN, + mild distress, + obese Head: normocephalic, atraumatic Respiratory/Chest: no respiratory distress, no accessory muscle use, + crackles Cardiovascular: regular rate, rhythm Abdomen: non tender, non distended, soft, no pulsatile mass Laboratory Results: Results Past 24 Hours Test 09/30/16 14:14 09/30/16 19:57 10/01/16 01:58 10/01/16 06:00 Range/Units Bedside Glucose 119 187 140 70-99 mg/dl White Blood Count 10.31 4.8-10.8 K/uL Red Blood Count 3.82 4.7-6.1 M/uL Hemoglobin 9.7 14.0-18.0 g/dL Hematocrit 30.9 42-52 % Mean Corpuscular Volume 80.9 80-100 fL Mean Corpuscular Hemoglobin 25.4 25-34 pg Mean Corpuscular Hemoglobin Concent 31.4 32-36 g/dl RDW Standard Deviation 52.8 36.4-46.3 fL RDW Coefficient of Variation 17.6 11.5-14.5 % Platelet Count 245 130-400 K/uL Mean Platelet Volume 9.1 7.4-10.4 fL Prothrombin Time 14.9 9.0-12.0 SECONDS Prothromb Time International Ratio 1.4 0.9-1.1 Sodium Level 136 136-145 mmol/L Potassium Level 3.2 3.5-5.1 mmol/L Chloride Level 93 98-107 mmol/L Carbon Dioxide Level 31 21-32 mmol/L Anion Gap 12.0 3-11 mmol/L Blood Urea Nitrogen 18 7-18 mg/dl Creatinine 1.50 0.60-1.40 mg/dl Est Creatinine Clear Calc Drug Dose 49.5 ml/min Estimated GFR () 52.4 Estimated GFR (Non- 45.2 BUN/Creatinine Ratio 11.7 10-20 Random Glucose 129 70-99 mg/dl Calcium Level 8.8 8.5-10.1 mg/dl Test 10/01/16 06:36 Range/Units Bedside Glucose 142 70-99 mg/dl Assessment & Plan Recurrent Sigmoid Volvulus s/p rectal tube decompression - vital signs stable - CXR showing increased pulmonary congestion - KUB showing nonobstructive bowel gas pattern - Rectal tube with liquid stool output Plan: Continue rectal tube per GI continue clear liquids Patient to have sigmoid resection Thursday at [address] Garcia discussed with family/POA Half of bowel prep today and half tomorrow Continue current CCU management Will continue to monitor I have discussed this patient with Dr. Garcia who is in agreement with above stated findings and treatment plan.
[2016-10-01] MEDS ORDERED: CEFTRIAXONE SOD INJ 2000 MG in DEXTROSE 5% 50ML IV SCH (16:00)
--- NOTE | 2016-10-01 20:01 | Progress Note ---
Internal Med Progress Note Date of Service: Oct 01, 2016. Provider Documentation: SUBJECTIVE: more awake and alert today mentions that he feels sleepy no complain of abdominal pain getting bowel prep -liquid dark stool in rectal tube on clears -as per nursing able to tolerate with out worsening of abdominal pain or N/V OBJECTIVE: Vital Signs-as noted below Exam: General-elderly male, chronically ill appearing ,sleeping , opens eyes to voice Eyes-sclera non icteric, ENT-dry oral mucosa Lungs-no wheeze or rales Heart-regular Abdomen-distended, soft, bowel sound active /hyper pitched on left quadrant Extremities--improved red on rt lower leg /no warmth or tenderness /chronic venous stasis change on left lower leg , + 2-3 pedal edema , un stageable sacral wound on both buttock and sacral area Neuro-lethargic, sleepy , opens eyes to voice , paraplegic at baseline Lab data as noted below. 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 with altered mental status and abdominal distention Abdominal CT shows recurrent Sigmoid volvulus appreciate GI input and management, s/p Colonoscopic decompression followed by sigmoid colon tube placement serial KUB -shows no significant bowel dilatation , colonic tube in sigmoid colon surgery has been consulted-appreciate input -schedule for Surgical resection of Sigmoid colon on Thursday Am cont bowel prep on Clear diet , NPO past midnight on Lethargy /Changed Mental status -due to Metabolic Encephalopathy improved mental status to approx baseline RT Lower ext cellulitis : improved cont on IV Abx Sacral wound : present on admission evaluated with wound care nurse buttock wound appear to be hard and boggy need to R/o abscess /underlying fluid collection wound care Dr Julian Cam consulted UTI : due to chronic indwelling catheter in setting of Neurogenic bladder Urine culture -E coli Abx changed to IV Rocephin per sensitivity HX OF Paroxysmal A. Fib rate controlled with sotalol Coumadin on hold for possible colon surgery 2 mg PO vit K ordered INR 1.4 follow INR HX OF Diastolic CHF given IV Lasix for vol overload monitor ACUTE KIDNEY INJURY /CKD STAGE 3 : due to above hold Lasix follow PRP DM2 hold oral agents-pt is NPO insulin sliding scale DVT ppx hold Coumadin DNR DISPOSITION : was at [place] possible return to [place] when medically stable social service consulted for discharge planning -update given to Darius GONSALEZ Contact WALLACE Mccoy Liner -Cousin contact number [phone]. Vital Signs: Date Time Temp Pulse Resp B/P Pulse Ox O2 Delivery O2 Flow Rate FiO2 10/02/16 12:00 36.5 70 16 132/76 94 Nasal Cannula 4.0 10/02/16 12:00 94 Nasal Cannula 3.0 10/02/16 08:00 36.5 70 16 132/76 94 Nasal Cannula 4.0 10/02/16 08:00 94 Nasal Cannula 3.0 10/02/16 04:00 Nasal Cannula 3.0 10/02/16 03:49 36.4 67 22 123/74 91 Nasal Cannula 4.0 10/01/16 23:59 Nasal Cannula 3.0 10/01/16 23:40 36.7 66 21 121/79 98 Nasal Cannula 4.0 10/01/16 20:14 36.8 75 18 115/63 95 10/01/16 20:00 Nasal Cannula 3.0 10/01/16 16:00 Nasal Cannula 3.0 10/01/16 15:44 36.9 76 20 131/63 92 Lab Results: Results Past 24 Hours Test 10/01/16 20:50 10/02/16 05:40 10/02/16 06:36 10/02/16 11:16 Range/Units Bedside Glucose 127 118 160 70-99 mg/dl Prothrombin Time 12.7 9.0-12.0 SECONDS Prothromb Time International Ratio 1.2 0.9-1.1 Sodium Level 139 136-145 mmol/L Potassium Level 2.9 3.5-5.1 mmol/L Chloride Level 96 98-107 mmol/L Carbon Dioxide Level 35 21-32 mmol/L Anion Gap 8.0 3-11 mmol/L Blood Urea Nitrogen 14 7-18 mg/dl Creatinine 1.20 0.60-1.40 mg/dl Est Creatinine Clear Calc Drug Dose 61.5 ml/min Estimated GFR () 68.6 Estimated GFR (Non- 59.2 BUN/Creatinine Ratio 11.3 10-20 Random Glucose 117 70-99 mg/dl Calcium Level 8.8 8.5-10.1 mg/dl Test 10/02/16 11:25 10/02/16 14:29 10/02/16 14:46 10/02/16 14:47 Range/Units White Blood Count 9.05 4.8-10.8 K/uL Red Blood Count 3.72 4.7-6.1 M/uL Hemoglobin 9.3 14.0-18.0 g/dL Hematocrit 30.0 42-52 % Mean Corpuscular Volume 80.6 80-100 fL Mean Corpuscular Hemoglobin 25.0 25-34 pg Mean Corpuscular Hemoglobin Concent 31.0 32-36 g/dl RDW Standard Deviation 52.9 36.4-46.3 fL RDW Coefficient of Variation 17.8 11.5-14.5 % Platelet Count 223 130-400 K/uL Mean Platelet Volume 8.5 7.4-10.4 fL Bedside Glucose 154 70-99 mg/dl
[2016-10-01] MEDS: EUCERIN CR 120 GM JAR EXT SCH (20:47)
[2016-10-01] MEDS ORDERED: NURSING VERBAL MED ORDER ONE (23:30)
[2016-10-02] VITALS (11 sets, daily range): BP systolic 123–136; BP diastolic 74–80; PULSE 60–71; TEMP 36.4–37.1; O2SAT 91–98
[2016-10-02] MEDS ORDERED: HYDROmorphone INJ 0.5 MG/0.5 ML SYR IV PRN
[2016-10-02 06:37] LABS: INR 1.2 (0.9-1.1); PROTHROMBIN TIME (PATIENT) 12.7 SECONDS (9.0-12.0)
[2016-10-02 06:47] LABS: BUN/CREATININE RATIO 11.3 (10-20); CALCIUM 8.8 mg/dl (8.5-10.1); CREATININE 1.2 mg/dl (0.60-1.40); POTASSIUM 2.9 mmol/L (3.5-5.1)
[2016-10-02] MEDS: INSULIN ASPART 100 UNITS/ML 3 ML PEN SC SCH ×4 (07:00→20:53)
[2016-10-02] MEDS: BOOST BREEZE NUTRITION DRINK 1 BOX PO SCH ×3 (07:30→15:53)
--- NOTE | 2016-10-02 07:39 | DIAGNOSTIC IMAGING REPORT ---
CHEST ONE VIEW PORTABLE HISTORY: Short of breath. COMPARISON: Chest 10/01/2016. FINDINGS: There are low lung volumes. The heart is mildly enlarged. Tortuous thoracic aorta. Left greater the right interstitial and vascular thickening with a small left and trace right pleural effusion. This is similar to the prior study. IMPRESSION: No change in the mild asymmetric pulmonary edema and small left and trace right pleural effusions. Electronically signed by: Jorge Veronica M.D. 10/02/2016 7:38 AM Dictated Date/Time: 10/02/2016 7:37 AM
--- NOTE | 2016-10-02 07:55 | DIAGNOSTIC IMAGING REPORT ---
KUB CLINICAL HISTORY: sigmoid volvulus pain COMPARISON STUDY: 10/01/2016 FINDINGS: Rectal tube in position. Stable postoperative changes right hemithorax. Nonobstructive bowel pattern. IMPRESSION: Rectal tube in position. Nonobstructive bowel pattern. Electronically signed by: Julian Vargas M.D. 10/02/2016 7:54 AM Dictated Date/Time: 10/02/2016 7:53 AM
[2016-10-02] MEDS: LAVAGE SOLUTION 4000ML PO SCH (08:07)
[2016-10-02] MEDS: SODIUM CHLORIDE 0.65% NA SOLN 45 ML (OCEAN) NAE SCH ×8 (08:48→23:56)
[2016-10-02] MEDS: DULOXETINE HCL 60 MG CAP PO SCH (08:48)
[2016-10-02] MEDS: LANOLIN/PETROLATUM 30 GM TUBE EXT SCH ×4 (08:48→20:54)
[2016-10-02] MEDS: SOTALOL HCL 80 MG TAB PO SCH (08:48)
[2016-10-02] MEDS: SIMETHICONE 80 MG CHEW PO SCH ×2 (08:49→13:59)
[2016-10-02] MEDS: PREGABALIN 75 MG CAP PO SCH (08:49)
[2016-10-02] MEDS: AMITRIPTYLINE HCL 10 MG TAB PO SCH (08:49)
[2016-10-02] MEDS: DOCUSATE SODIUM/SENNA 50/8.6MG TAB PO SCH (08:50)
[2016-10-02] MEDS: BACLOFEN TAB 20 MG TAB PO SCH (08:50)
[2016-10-02] MEDS: ACETAMINOPHEN 325 MG TAB PO PRN (09:07)
[2016-10-02] MEDS ORDERED: IMIPENEM/CILASTATIN CONSULT ACTIVE PRN (11:00)
[2016-10-02] MEDS ORDERED: POTASSIUM CHLORIDE 20 MEQ/15 ML UDC PO ONE (11:30)
[2016-10-02 11:33] LABS: MEAN CELL VOLUME 80.6 fL (80-100); MEAN PLATELET VOLUME 8.5 fL (7.4-10.4); PLATELET COUNT 223 K/uL (130-400); RED BLOOD COUNT 3.72 M/uL (4.7-6.1); WHITE BLOOD COUNT 9.05 K/uL (4.8-10.8)
[2016-10-02] MEDS: PANTOprazole INJ 40 MG in SYRINGE 0 ML IV SCH (11:50)
[2016-10-02] MEDS: IMIPENEM/CILASTATIN IV 500 MG in D5W 100ML IV SCH ×3 (11:51→23:56)
--- NOTE | 2016-10-02 15:31 | DIAGNOSTIC IMAGING REPORT ---
CT HEAD WITHOUT CONTRAST (CT) CLINICAL HISTORY: Acute change in mental status COMPARISON STUDY: 09/28/2016 TECHNIQUE: Axial CT of the brain is performed from the vertex to the skull base. IV contrast was not administered for this examination. CT DOSE: 921.40 mGy.cm FINDINGS: No intra or extra-axial mass lesions are visualized. There is no CT evidence of acute cortical infarction. There is no evidence of midline shift. There is no acute hemorrhage. No calvarial fractures are visualized. There are mild white matter hypodensities likely on a small vessel basis. There is no evidence of pathologic ventricular dilatation. There are postsurgical changes involve the paranasal sinuses. There is chronic maxillary mucosal thickening. IMPRESSION: No acute intracranial findings Electronically signed by: Hitesh Fajardo M.D. 10/02/2016 3:30 PM Dictated Date/Time: 10/02/2016 3:28 PM
[2016-10-02 15:55] LABS: ALLEN TEST POS (POS); ARTERIAL BLD GAS O2 SATURATION 92.3 % (90-95); ARTERIAL BLOOD GAS BASE EXCESS 8.6 mEq/L (-9-1.8); ARTERIAL BLOOD GAS HCO3 36 mmol/L (19-24); ARTERIAL BLOOD GAS PO2 74 mm/Hg (80-95); ARTERIAL BLOOD GAS pH 7.37 (7.35-7.45); O2 ADMINISTRATION 2.5 LITERS
--- NOTE | 2016-10-02 16:51 | Anesthesiology Progress Note ---
Anesthesia Progress Note Date of Service Oct 02, 2016. Progress Notes is a 76 year old gentleman who is slated to undergo a bowel resection on 10/03/[address] Garcia. Patient PMH significant for chronic respiratory failure on home oxygen. Upon trying to obtain consent, patient is being placed on BiPAP so his respiratory status will have to be reassessed in AM to see if this is an appropriate time to undergo surgery. Regardless, patient at increased risk for postoperative ventilation. Other PMH significant for PR, CAD , HTN, CHF (although echo 08/13/16 showed EF 60-65% with mild LVH), PAF (coumadin on hold), GERD, OA, NIDDM (being treated with insulin as inpatient however), CKD (stage 3), anemia (chronic) and obesity. 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 He has a neurogenic bladder and an indwelling kohli with recurrent UTI's.EKG showed NSR with HR [address] and T wave abnormalities. H/H was 9.3/30 although patient is type and screened. K on 10/02/16 was 2.9 and was repleted with 60meQ of potassium. Airway exam shows MP 3 without teeth. Given patient's MS changes, phone consent was obtained from patient's POA. Discussed GETA with possible arterial line monitoring and possible post-op mechanical ventilation. All questions answered. Patient will be reassessed in AM to determine whether or not he is fully optimized at this time.
[2016-10-02] MEDS ORDERED: NALOXONE HCL 0.4 MG/1 ML VIAL/CARP IV STA (18:10)
[2016-10-02] MEDS ORDERED: FUROSEMIDE INJ 40 MG in SYRINGE 0 ML IV ONE (18:30)
--- NOTE | 2016-10-02 18:49 | Progress Note ---
Internal Med Progress Note Date of Service: Oct 02, 2016. Provider Documentation: SUBJECTIVE: pt found to be more lethargic this afternoon hardly waking up opens eyes to sternal rub was more alert earlier morning during eval stat ABG ordered CT Head without contrast eval to R/O CVA pt is put on BIpap Cxray shows persistent bilat pulmonary congestion Lasix 40 mg IV ordered case D/w Dr Garcia pt will need to be optimized medically -improved pulmonary status prior to surgery tomorrow AM cont to monitor OBJECTIVE: Vital Signs-as noted below Exam: General-elderly male, more lethargic today , difficult to arouse Eyes-sclera non icteric, ENT-dry oral mucosa Lungs-no wheeze or rales Heart-regular Abdomen-distended, soft, bowel sound active /hyper pitched on left quadrant Extremities--improved red on rt lower leg /no warmth or tenderness /chronic venous stasis change on left lower leg , + 2-3 pedal edema , un stageable sacral wound on both buttock and sacral area Neuro-more lethargic , paraplegic at baseline Lab data as noted below. ASSESSMENT & PLAN: CHANGED MENTAL STATUS : found to be more lethargic, obtunded this afternoon appears to reverse back to his initial presentation on admission pt was more awake and alert yesterday and earlier this AM -no evidence of worsening of infection /sepsis white count remains normal , no fever lactic acid -1 normal ammonia level ABG shows normal pH with PCo2 64 , ordered for Bipap Lasix 40 mg IV ordered for pulmonary congestion stat CT head with out contrast -no acute change pt will be NPO surgery team updated will cont to monitor pt will needs to be evaluated again in Am to assess improvement of status prior to scheduled sigmoid colectomy at 10 AM tomorrow RECURRENT Sigmoid Volvulus last admission in July with similar presentation-had colonoscopic decompression pt refused surgery at that time presented again from [facility] with altered mental status and abdominal distention Abdominal CT shows recurrent Sigmoid volvulus appreciate GI input and management, s/p Colonoscopic decompression followed by sigmoid colon tube placement serial KUB -shows no significant bowel dilatation , colonic tube in sigmoid colon surgery has been consulted-appreciate input -schedule for Surgical resection of Sigmoid colon tomorrow at 10 AM concern for worsening of mental status pulmonary congestion will cont IV Lasix to improve pulmonary congestion BiPap tx for Co2 retention Pulmonology consult requested to assist in optimization of lung status with multiple underlying co comorbidities [place], CAD, HTN, CHF with diastolic dysfunction ( echo 08/13/16 showed EF 60-65% with mild LVH), PAF (Coumadin on hold), GERD, OA, chronic respiratory failure on home 02 2 L , Type 2 DM , CKD (stage 3), anemia ( chronic) and paraplegia with chronic indwelling [place]rell UTI with pseudomonads/E Coli -MDR -on Imipenem , Sacral wound , rt lower ext Cellulitis pt is High risk for Genny and post op complication -including but not limited to -Respiratory failure /overt flash pulmonary edema , decompensated CHF -leading to acute [place] arrhythmia-hx of PAF , [place] change PO Sotalol to IV Lopressor will need ICU monitoring /mechanical ventilation post op will repeat Cxray in AM , Lasix ordered for today and AM Lethargy /Changed Mental status -due to Metabolic Encephalopathy worsening of mental status today management and evaluation outlined above RT Lower ext cellulitis : cont on Imipenem Sacral wound : present on admission evaluated with wound care nurse buttock wound appear to be hard and boggy need to R/o abscess /underlying fluid collection wound care Dr Julian Cam consulted UTI : due to chronic indwelling catheter in setting of Neurogenic bladder Urine culture -E coli /Pseudomonas -multi Drug resistant ABx adjusted to Imipenem -per sensitivity HX OF Paroxysmal A. Fib rate controlled with sotalol Sotalol on hold for NPO staus /bowel surgery IV Lopressor Coumadin on hold for possible colon surgery INR reversed with Vit K ( 2 mg PO vit K given on 09/30/16 ) ACUTE CHF WITH DIASTOLIC FAILURE : cont IV Lasix Diuresis due to worsening of pulmonary congestion /respiratory status repeat Cxray will need ICU monitoring /mechanical ventilation post op ACUTE KIDNEY INJURY /CKD STAGE 3 : follow PRP while getting IV Lasix DM2 insulin sliding scale DVT ppx hold Coumadin DNR DISPOSITION : was at [facility] possible return to [place] when medically stable social service consulted for discharge planning Contact WALLACE Gould -Cousin contact number [phone]. Vital Signs: Date Time Temp Pulse Resp B/P Pulse Ox O2 Delivery O2 Flow Rate FiO2 10/03/16 08:24 40 10/03/16 07:28 37.1 72 22 127/80 96 BiPAP 10/03/16 07:25 76 23 94 BiPAP/CPAP 30 10/03/16 07:25 76 94 30 10/03/16 04:00 98 BiPAP 30 10/03/16 03:45 37.1 80 22 116/75 98 BiPAP 30 10/03/16 03:17 72 94 30 10/03/16 01:55 74 20 94 BiPAP/CPAP 30 10/02/16 23:59 98 BiPAP 30 10/02/16 23:50 37.1 71 22 132/78 91 BiPAP 30 10/02/16 20:00 98 BiPAP 30 10/02/16 19:22 36.4 66 20 129/77 98 BiPAP 10/02/16 19:10 66 94 30 10/02/16 19:10 66 17 96 BiPAP/CPAP 30 10/02/16 16:30 60 97 30 10/02/16 16:08 36.6 61 18 136/80 94 3.0 10/02/16 16:00 94 Nasal Cannula 3.0 10/02/16 12:00 36.5 70 16 132/76 94 Nasal Cannula 4.0 10/02/16 12:00 94 Nasal Cannula 3.0 Lab Results: Results Past 24 Hours Test 10/02/16 11:16 10/02/16 11:25 10/02/16 14:29 10/02/16 15:43 Range/Units Bedside Glucose 160 154 70-99 mg/dl White Blood Count 9.05 4.8-10.8 K/uL Red Blood Count 3.72 4.7-6.1 M/uL Hemoglobin 9.3 14.0-18.0 g/dL Hematocrit 30.0 42-52 % Mean Corpuscular Volume 80.6 80-100 fL Mean Corpuscular Hemoglobin 25.0 25-34 pg Mean Corpuscular Hemoglobin Concent 31.0 32-36 g/dl RDW Standard Deviation 52.9 36.4-46.3 fL RDW Coefficient of Variation 17.8 11.5-14.5 % Platelet Count 223 130-400 K/uL Mean Platelet Volume 8.5 7.4-10.4 fL Arterial Blood pH 7.37 7.35-7.45 Arterial Blood Partial Pressure CO2 63 35-46 mmHg Arterial Blood Partial Pressure O2 74 80-95 mm/Hg Arterial Blood HCO3 36 19-24 mmol/L Arterial Blood Oxygen Saturation 92.3 90-95 % Arterial Blood Base Excess 8.6 -9-1.8 mEq/L Arterial Blood Gas Delivery 2.5 LITERS Junior Test POS POS Lactic Acid Level 1.1 0.4-2.0 mmol/L Test 10/02/16 16:24 10/02/16 18:09 10/02/16 19:25 10/02/16 20:17 Range/Units Bedside Glucose 128 117 70-99 mg/dl Sodium Level 140 136-145 mmol/L Potassium Level 3.6 3.5-5.1 mmol/L Chloride Level 99 98-107 mmol/L Carbon Dioxide Level 35 21-32 mmol/L Anion Gap 6.0 3-11 mmol/L Blood Urea Nitrogen 12 7-18 mg/dl Creatinine 1.20 0.60-1.40 mg/dl Est Creatinine Clear Calc Drug Dose 61.5 ml/min Estimated GFR () 68.6 Estimated GFR (Non- 59.2 BUN/Creatinine Ratio 10.2 10-20 Random Glucose 117 70-99 mg/dl Calcium Level 8.6 8.5-10.1 mg/dl Ammonia 14.0 11-32 umol/L Test 10/03/16 06:05 10/03/16 06:23 Range/Units Prothrombin Time 12.0 9.0-12.0 SECONDS Prothromb Time International Ratio 1.1 0.9-1.1 Arterial Blood pH 7.44 7.35-7.45 Arterial Blood Partial Pressure CO2 55 35-46 mmHg Arterial Blood Partial Pressure O2 64 80-95 mm/Hg Arterial Blood HCO3 37 19-24 mmol/L Arterial Blood Oxygen Saturation 89.8 90-95 % Arterial Blood Base Excess 10.8 -9-1.8 mEq/L Arterial Blood Gas Delivery 30% Junior Test POS POS Sodium Level 139 136-145 mmol/L Potassium Level 3.0 3.5-5.1 mmol/L Chloride Level 97 98-107 mmol/L Carbon Dioxide Level 33 21-32 mmol/L Anion Gap 9.0 3-11 mmol/L Blood Urea Nitrogen 13 7-18 mg/dl Creatinine 1.10 0.60-1.40 mg/dl Est Creatinine Clear Calc Drug Dose 67.1 ml/min Estimated GFR () 76.2 Estimated GFR (Non- 65.8 BUN/Creatinine Ratio 11.4 10-20 Random Glucose 126 70-99 mg/dl Calcium Level 9.2 8.5-10.1 mg/dl Total Bilirubin 0.3 0.2-1 mg/dl Direct Bilirubin < 0.1 0-0.2 mg/dl Aspartate Amino Transf (AST/SGOT) 17 15-37 U/L Alanine Aminotransferase (ALT/SGPT) 12 12-78 U/L Alkaline Phosphatase 116 45-117 U/L Total Protein 8.2 6.4-8.2 gm/dl Albumin 2.2 3.4-5.0 gm/dl Bedside Glucose 124 70-99 mg/dl
[2016-10-02 18:55] LABS: BUN/CREATININE RATIO 10.2 (10-20); CALCIUM 8.6 mg/dl (8.5-10.1); CREATININE 1.2 mg/dl (0.60-1.40); POTASSIUM 3.6 mmol/L (3.5-5.1)
[2016-10-02] MEDS: LEVALBUTEROL 1.25MG/0.5ML NEB INH SCH (19:10)
[2016-10-02] MEDS: IPRATROPIUM BROMIDE NEB SOLN 0.02% 2.5 ML VIAL INH SCH (19:15)
[2016-10-02] MEDS: EUCERIN CR 120 GM JAR EXT SCH (20:38)
[2016-10-03] VITALS (26 sets, daily range): BP systolic 90–127; BP diastolic 60–81; PULSE 72–89; TEMP 36.3–37.1; O2SAT 94–98
[2016-10-03] MEDS: LEVALBUTEROL 1.25MG/0.5ML NEB INH SCH ×3 (03:16→14:49)
[2016-10-03] MEDS: IPRATROPIUM BROMIDE NEB SOLN 0.02% 2.5 ML VIAL INH SCH ×3 (03:16→14:49)
[2016-10-03] MEDS: SODIUM CHLORIDE 0.65% NA SOLN 45 ML (OCEAN) NAE SCH ×5 (05:35→16:25)
[2016-10-03] MEDS: IMIPENEM/CILASTATIN IV 500 MG in D5W 100ML IV SCH ×4 (05:35→23:32)
[2016-10-03] MEDS ORDERED: FUROSEMIDE INJ 40 MG in SYRINGE 0 ML IV ONE (06:00)
[2016-10-03 06:24] LABS: ARTERIAL BLD GAS O2 SATURATION 89.8 % (90-95); ARTERIAL BLOOD GAS BASE EXCESS 10.8 mEq/L (-9-1.8); ARTERIAL BLOOD GAS HCO3 37 mmol/L (19-24); ARTERIAL BLOOD GAS PO2 64 mm/Hg (80-95); ARTERIAL BLOOD GAS pH 7.44 (7.35-7.45)
[2016-10-03 06:25] LABS: ALLEN TEST POS (POS); O2 ADMINISTRATION 30%
[2016-10-03 06:33] LABS: INR 1.1 (0.9-1.1)
[2016-10-03] MEDS ORDERED: ACETAMINOPHEN 1000 MG/100 ML IV IV ONE (06:40)
[2016-10-03 06:53] LABS: ALKALINE PHOSPHATASE 116 U/L (45-117); ALT/SGPT 12 U/L (12-78); AST/SGOT 17 U/L (15-37); BLOOD UREA NITROGEN 13 mg/dl (7-18); BUN/CREATININE RATIO 11.4 (10-20); CALCIUM 9.2 mg/dl (8.5-10.1); CARBON DIOXIDE 33 mmol/L (21-32); CHLORIDE 97 mmol/L (98-107); GLUCOSE 126 mg/dl (70-99); SODIUM 139 mmol/L (136-145)
[2016-10-03] MEDS: INSULIN ASPART 100 UNITS/ML 3 ML PEN SC SCH ×4 (07:00→21:00)
--- NOTE | 2016-10-03 07:39 | DIAGNOSTIC IMAGING REPORT ---
CHEST ONE VIEW PORTABLE HISTORY: Short of breath. COMPARISON: Chest 10/02/2016. FINDINGS: There are low lung volumes with enlargement of the cardiac silhouette. No pneumothorax. Mild pulmonary vascular congestion has improved. A trace left pleural effusion remains unchanged. IMPRESSION: Slight improvement in the pulmonary vascular congestion. Electronically signed by: Jorge Veronica M.D. 10/03/2016 7:37 AM Dictated Date/Time: 10/03/2016 7:36 AM
--- NOTE | 2016-10-03 08:11 | PULMONARY CONSULTATION ---
DATE OF CONSULTATION: 10/03/2016 DATE OF CONSULTATION: 10/03/2016. HISTORY OF PRESENT ILLNESS: The patient is a pleasant 76-year-old male who was admitted to the hospital on the with a sigmoid volvulus and abdominal pain and Dr. Whitfield has asked me to evaluate the patient from a pulmonary standpoint for respiratory failure. The patient has exhibited hypercapnia with relative hypoxemia. His CO2 has been in the 55 to 64 range. When I reviewed his records and his admissions for pneumonia, sigmoid volvulus in the past he has had this as far back as 2015 when he has had significant hypercapnia. He does complain of frequent episodes of falling asleep rather readily at the nursing facility with sedentary activity. He denies morning headaches. I am not sure whether he dreams. He is not sure whether he snores, but he states he was told he had significant snoring in the past. Has been placed on BiPAP and seems to be tolerating that fairly well. With that, his CO2 has improved from 64 down to pCO2 of 55 from the to this morning at 0605 hours. He is awake and comfortable at the present time. This history is notable for paresis lower extremities related to spinal tumor so he is not very active. 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 He actually told me he is able to do his work so he may have some confusion as well. She has never had any lung disease in the past, has never smoked cigarettes. PAST MEDICAL HISTORY: Significant for sigmoid volvulus, hypertension on oxygen at home for chronic respiratory failure, diastolic heart failure, coronary artery disease, paroxysmal atrial fibrillation, anemia, urinary tract infection, spinal cord tumor with neurogenic bladder, paraplegia of the lower extremities, diabetes, Lyme disease, MRSA. PAST SURGICAL HISTORY: Significant for colonoscopy with decompression of the sigmoid volvulus and rectal tube. SOCIAL HISTORY: He chewed tobacco for about 30 years. He has never been an alcohol user, never smoked any cigarettes. On rare occasions, he had smoked some cigars in the past. He is not been an alcohol user. 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 According to records, he has had some hematuria, hypomagnesemia, lactic acidosis, pneumonia in the past, chronic kidney disease, urinary tract infections. FAMILY HISTORY: His brother has had cerebral aneurysm, sister had colon cancer. Mother diabetes, father from heart disease and hypertension. His father also had a stroke and prostate cancer. ALLERGIES: LATEX, MACROLIDES. MEDICATIONS: Noted. PHYSICAL EXAMINATION: VITAL SIGNS: His blood pressure 116/75, respiratory rate is 20, his oxygen saturation 98% on BiPAP. He is afebrile. His weight is 109 kilograms. When he was here in December of last year, he was 109 kilograms at that time so his weight has been stable over the last year or so. HEAD, EYES, EARS, NOSE, AND THROAT: Reveals some slight septal deviation to the left side with a small dose. No facial asymmetry is noted. There has a very small posterior pharynx, large tongue, small pendulous uvula that abuts up against the posterior pharyngeal wall. No adenopathy is noted. No stridor is noted. Trachea is midline. Mandibular exam is normal. There is no neck vein distention or HJR. HEART: Regular rate and rhythm, no murmurs are heard. No irregular heartbeat noted. LUNGS: Reveal decreased breath sounds, otherwise are clear. No fremitus is noted. ABDOMEN: Soft, slightly distended. 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 He has muscle wasting of the lower extremities with no cyanosis, clubbing or edema. Chest x-ray showed changes consistent with possible haziness in the right chest and a bit in the left chest with perhaps asymmetric pulmonary edema. I believe this probably is most consistent with small left pleural effusion. When compared to previous chest x-ray on the , the atelectasis has improved and mild pulmonary vascular congestion is stable. LABORATORY DATA: White count 9.05, hemoglobin 9.3, hematocrit 30%, platelet count 222,000. Blood gas this morning revealed a pH 7.44, pCO2 of 55, pO2 64 and 30% FIO2 on BiPAP. CO2 is 33 on the electrolytes, was 35 on the suggesting some hypoventilation. He remains hypokalemic with a potassium of 3. Liver function studies have been unremarkable. TSH was 3.6. INR is 1.1. Urinalysis revealed many inflammatory cells and red cells and has grown out some E. coli. Blood cultures were unremarkable. MRSA DNA surveillance screen is positive. IMPRESSION: Respiratory failure. This is hypercapnia and is most consistent with hypoventilation syndrome. From his history and his clinical examination I suspect she probably has significant obstructive sleep apnea. He says he stays at the assisted and is a bit confused. I do not know whether he has snoring but certainly with hypercapnia, no history of lung disease, no history of smoking in the past, no major exposures at least from what I can glean from the records, hypoventilation syndrome and/or sleep apnea is the most likely cause. RECOMMENDATIONS: 1. At this point, I would continue with his present medications. I think the Atrovent and Xopenex could be given just p.r.n. 2. Would continue on BIPAP with setting of inspiratory pressure of 14, expiratory pressure of [address] rate of 8. This may help to improve the hypercapnia. 3. Avoid any medications that may cause drowsiness, although on BiPAP if you need to use something he should be fairly well supported. Thanks for asking me to evaluate Mr. Gould. He should probably have a polysomnogram done as an outpatient and that could be done as a portable study at the nursing facility.
[2016-10-03] MEDS: LANOLIN/PETROLATUM 30 GM TUBE EXT SCH ×4 (08:56→23:02)
[2016-10-03] MEDS: POTASSIUM CHLR 10 MEQ / WTR 10 MEQ in PREMIXED WATER 100 ML IV SCH ×4 (09:19→12:00)
--- NOTE | 2016-10-03 09:24 | Surgery Progress Note ---
Surgery Progress Note Date of Service Oct 03, 2016. Subjective Post OP Day: HD # 5 patient sleeping on encounter with BIPAP Wakes to voice Denies abdominal pain Objective Vital Signs: Date Time Temp Pulse Resp B/P Pulse Ox O2 Delivery O2 Flow Rate FiO2 10/03/16 08:24 40 10/03/16 07:28 37.1 72 22 127/80 96 BiPAP 10/03/16 07:25 76 23 94 BiPAP/CPAP 30 10/03/16 07:25 76 94 30 10/03/16 04:00 98 BiPAP 30 10/03/16 03:45 37.1 80 22 116/75 98 BiPAP 30 10/03/16 03:17 72 94 30 10/03/16 01:55 74 20 94 BiPAP/CPAP 30 10/02/16 23:59 98 BiPAP 30 10/02/16 23:50 37.1 71 22 132/78 91 BiPAP 30 10/02/16 20:00 98 BiPAP 30 10/02/16 19:22 36.4 66 20 129/77 98 BiPAP 10/02/16 19:10 66 94 30 10/02/16 19:10 66 17 96 BiPAP/CPAP 30 10/02/16 16:30 60 97 30 10/02/16 16:08 36.6 61 18 136/80 94 3.0 10/02/16 16:00 94 Nasal Cannula 3.0 10/02/16 12:00 36.5 70 16 132/76 94 Nasal Cannula 4.0 10/02/16 12:00 94 Nasal Cannula 3.0 General Appearance: no apparent distress, + obese, + pertinent finding ( chronically ill appearing, BIPAP present, lethargic) Head: normocephalic, atraumatic Neck: trachea midline Respiratory/Chest: normal breath sounds, no respiratory distress, no accessory muscle use Cardiovascular: regular rate, rhythm Abdomen: non tender, non distended, soft, no pulsatile mass, + abnormal bowel sounds (hypoactive bowel sounds) Laboratory Results: Results Past 24 Hours Test 10/02/16 11:16 10/02/16 11:25 10/02/16 14:29 10/02/16 15:43 Range/Units Bedside Glucose 160 154 70-99 mg/dl White Blood Count 9.05 4.8-10.8 K/uL Red Blood Count 3.72 4.7-6.1 M/uL Hemoglobin 9.3 14.0-18.0 g/dL Hematocrit 30.0 42-52 % Mean Corpuscular Volume 80.6 80-100 fL Mean Corpuscular Hemoglobin 25.0 25-34 pg Mean Corpuscular Hemoglobin Concent 31.0 32-36 g/dl RDW Standard Deviation 52.9 36.4-46.3 fL RDW Coefficient of Variation 17.8 11.5-14.5 % Platelet Count 223 130-400 K/uL Mean Platelet Volume 8.5 7.4-10.4 fL Arterial Blood pH 7.37 7.35-7.45 Arterial Blood Partial Pressure CO2 63 35-46 mmHg Arterial Blood Partial Pressure O2 74 80-95 mm/Hg Arterial Blood HCO3 36 19-24 mmol/L Arterial Blood Oxygen Saturation 92.3 90-95 % Arterial Blood Base Excess 8.6 -9-1.8 mEq/L Arterial Blood Gas Delivery 2.5 LITERS Junior Test POS POS Lactic Acid Level 1.1 0.4-2.0 mmol/L Test 10/02/16 16:24 10/02/16 18:09 10/02/16 19:25 10/02/16 20:17 Range/Units Bedside Glucose 128 117 70-99 mg/dl Sodium Level 140 136-145 mmol/L Potassium Level 3.6 3.5-5.1 mmol/L Chloride Level 99 98-107 mmol/L Carbon Dioxide Level 35 21-32 mmol/L Anion Gap 6.0 3-11 mmol/L Blood Urea Nitrogen 12 7-18 mg/dl Creatinine 1.20 0.60-1.40 mg/dl Est Creatinine Clear Calc Drug Dose 61.5 ml/min Estimated GFR () 68.6 Estimated GFR (Non- 59.2 BUN/Creatinine Ratio 10.2 10-20 Random Glucose 117 70-99 mg/dl Calcium Level 8.6 8.5-10.1 mg/dl Ammonia 14.0 11-32 umol/L Test 10/03/16 06:05 10/03/16 06:23 Range/Units Prothrombin Time 12.0 9.0-12.0 SECONDS Prothromb Time International Ratio 1.1 0.9-1.1 Arterial Blood pH 7.44 7.35-7.45 Arterial Blood Partial Pressure CO2 55 35-46 mmHg Arterial Blood Partial Pressure O2 64 80-95 mm/Hg Arterial Blood HCO3 37 19-24 mmol/L Arterial Blood Oxygen Saturation 89.8 90-95 % Arterial Blood Base Excess 10.8 -9-1.8 mEq/L Arterial Blood Gas Delivery 30% Junior Test POS POS Sodium Level 139 136-145 mmol/L Potassium Level 3.0 3.5-5.1 mmol/L Chloride Level 97 98-107 mmol/L Carbon Dioxide Level 33 21-32 mmol/L Anion Gap 9.0 3-11 mmol/L Blood Urea Nitrogen 13 7-18 mg/dl Creatinine 1.10 0.60-1.40 mg/dl Est Creatinine Clear Calc Drug Dose 67.1 ml/min Estimated GFR () 76.2 Estimated GFR (Non- 65.8 BUN/Creatinine Ratio 11.4 10-20 Random Glucose 126 70-99 mg/dl Calcium Level 9.2 8.5-10.1 mg/dl Total Bilirubin 0.3 0.2-1 mg/dl Direct Bilirubin < 0.1 0-0.2 mg/dl Aspartate Amino Transf (AST/SGOT) 17 15-37 U/L Alanine Aminotransferase (ALT/SGPT) 12 12-78 U/L Alkaline Phosphatase 116 45-117 U/L Total Protein 8.2 6.4-8.2 gm/dl Albumin 2.2 3.4-5.0 gm/dl Bedside Glucose 124 70-99 mg/dl Diagnostic Interpretation: CT HEAD WITHOUT CONTRAST (CT) CLINICAL HISTORY: Acute change in mental status COMPARISON STUDY: 09/28/2016 TECHNIQUE: Axial CT of the brain is performed from the vertex to the skull base. IV contrast was not administered for this examination. CT DOSE: 921.40 mGy.cm FINDINGS: No intra or extra-axial mass lesions are visualized. There is no CT evidence of acute cortical infarction. There is no evidence of midline shift. There is no acute hemorrhage. No calvarial fractures are visualized. There are mild white matter hypodensities likely on a small vessel basis. There is no evidence of pathologic ventricular dilatation. There are postsurgical changes involve the paranasal sinuses. There is chronic maxillary mucosal thickening. IMPRESSION: No acute intracranial findings CHEST ONE VIEW PORTABLE HISTORY: Short of breath. COMPARISON: Chest 10/02/2016. FINDINGS: There are low lung volumes with enlargement of the cardiac silhouette. No pneumothorax. Mild pulmonary vascular congestion has improved. A trace left pleural effusion remains unchanged. IMPRESSION: Slight improvement in the pulmonary vascular congestion. 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 Whitfield, patient cleared for surgery. Plan for exploratory laparotomy with sigmoid resection and colostomy. Dr. Garcia has discussed this with the patient's POA, Darius Gould. Will obtain consent over telephone from POA prior to surgery. Patient will be kept on ventilator post-op and weaned off appropriately hopefully 24-48 hours post-op. Dr. Whitfield discussed this with POA. Replete Potassium IV one time Waiting for H&H I have discussed the patient with Dr. Garcia who is in agreement with above stated findings and treatment plan.
[2016-10-03] MEDS ORDERED: DEXAMETHASONE SOD INJ 4 MG/ML VIAL ONE (09:31)
[2016-10-03] MEDS ORDERED: LIDOCAINE HCL 2% 2 ML VIAL (20MG/ML) ONE (09:31)
[2016-10-03] MEDS ORDERED: PROPOFOL IV EMULSION 10 MG/ML 20 ML VIAL IV ONE (09:31)
[2016-10-03] MEDS ORDERED: ONDANSETRON INJ 2 MG/ML 2 ML VIAL ONE (09:31)
[2016-10-03] MEDS ORDERED: ROCURONIUM BROMIDE 10 MG/ML 5 ML VIAL ONE (09:31)
[2016-10-03] MEDS ORDERED: FENTANYL CITRATE INJ 50 MCG/1 ML 2 ML VIAL ONE (09:31)
[2016-10-03] MEDS ORDERED: SUCCINYLCHOLINE CHLORIDE 20 MG/ML 10 ML VIAL IV ONE (09:32)
[2016-10-03] MEDS ORDERED: MIDAZOLAM HCL 1 MG/ML 2ML VIAL ONE ×2 (09:46→12:55)
--- NOTE | 2016-10-03 09:51 | Progress Note ---
Internal Med Progress Note Date of Service: Oct 03, 2016. Provider Documentation: SUBJECTIVE: more awake today , opens eyes complains of Bipap machine alarm going off pt remained on Bipap over night adequate Diuresis with Lasix in afternoon ( 1 L out out after 40 mg Lasix last evening ) got 40 IV Lasix 6 am Cxray shows improved pulmonary congestion ABG shows improvement of PC02 55 spo2 89.9 BiPAP Fo02 increased to 40 % D/w Surgery and Anesthesia pt will proceed for sigmoid colectomy surgery today as scheduled OBJECTIVE: Vital Signs-as noted below Exam: General-elderly male, more awake Eyes-sclera non icteric, ENT-dry oral mucosa Lungs-improved auscultation , no wheeze , minimum rales at base Heart-regular Abdomen-distended, soft, bowel sound active /hyper pitched on left quadrant Extremities--improved red on rt lower leg /no warmth or tenderness /chronic venous stasis change on left lower leg , + 2-3 pedal edema , un stageable sacral wound on both buttock and sacral area Neuro-more arousable today , paraplegic at baseline Lab data as noted below. ASSESSMENT & PLAN: CHANGED MENTAL STATUS : mental status improved since yesterday possible C02 retention was on BiPAP last night -no evidence of worsening of infection /sepsis white count remains normal , no fever stat CT head with out contrast -no acute change lactic acid -1 normal ammonia level ABG this AM shows improved PCo2 64 -> 55 improved pulmonary congestion post diuresis -pt should proceed for surgery this AM RECURRENT Sigmoid Volvulus last admission in July with similar presentation-had colonoscopic decompression pt refused surgery at that time presented again from [facility] with altered mental status and abdominal distention Abdominal CT shows recurrent Sigmoid volvulus appreciate GI input and management, s/p Colonoscopic decompression followed by sigmoid colon tube placement serial KUB -shows no significant bowel dilatation , colonic tube in sigmoid colon surgery has been consulted-appreciate input -schedule for Surgical resection of Sigmoid colon today at 10 AM with multiple underlying co comorbidities VT, CAD, HTN, CHF with diastolic dysfunction ( echo 08/13/16 showed EF 60-65% with mild LVH), PAF (Coumadin on hold), GERD, OA, chronic respiratory failure on home 02 2 L , Type 2 DM , CKD (stage 3), anemia ( chronic) and paraplegia with chronic indwelling Cantrell UTI with pseudomonads/E Coli -MDR -on Imipenem , Sacral wound , rt lower ext Cellulitis pt is High risk for Genny and post op complication -including but not limited to -Respiratory failure /overt flash pulmonary edema , decompensated CHF -leading to acute VT arrhythmia-hx of PAF , [place] change PO Sotalol to IV Lopressor given improvement of mental status and pulmonary congestion -pt should proceed for surgery today will need ICU monitoring /mechanical ventilation post op POA Cousin : Darius Gould updated Surgery and anesthesia team aware Lethargy /Changed Mental status -due to Metabolic Encephalopathy mental status improved today management and evaluation outlined above RT Lower ext cellulitis : cont on Imipenem Sacral wound : present on admission evaluated with wound care nurse buttock wound appear to be hard and boggy need to R/o abscess /underlying fluid collection wound care Dr Julian Cam consulted UTI : due to chronic indwelling catheter in setting of Neurogenic bladder Urine culture -E coli /Pseudomonas -multi Drug resistant ABx adjusted to Imipenem -per sensitivity HX OF Paroxysmal A. Fib rate controlled with sotalol Sotalol on hold for NPO status /bowel surgery IV Lopressor 5 mg q 6 hrs Coumadin on hold for possible colon surgery INR reversed with Vit K ( 2 mg PO vit K given on 09/30/16 ) ACUTE CHF WITH DIASTOLIC FAILURE : echo 08/13/16 showed EF 60-65% with mild LVH cont IV Lasix Diuresis due to worsening of pulmonary congestion /respiratory status Cxray show improved pulmonary congestion this AM repeat Cxray in AM will need ICU monitoring /mechanical ventilation post op ACUTE KIDNEY INJURY /CKD STAGE 3 : follow PRP while getting IV Lasix DM2 insulin sliding scale DVT ppx hold Coumadin DNR DISPOSITION : pt is scheduled for Sigmoid Colectomy today will be in ICU post op for close monitoring of hemodynamics resident at [facility] return to [facility] when medically stable Social service consulted for discharge planning Contact POA Darius Gould -Cousin contact number [phone]. Vital Signs: Date Time Temp Pulse Resp B/P Pulse Ox O2 Delivery O2 Flow Rate FiO2 10/03/16 08:24 40 10/03/16 07:28 37.1 72 22 127/80 96 BiPAP 10/03/16 07:25 76 23 94 BiPAP/CPAP 30 10/03/16 07:25 76 94 30 10/03/16 04:00 98 BiPAP 30 10/03/16 03:45 37.1 80 22 116/75 98 BiPAP 30 10/03/16 03:17 72 94 30 10/03/16 01:55 74 20 94 BiPAP/CPAP 30 10/02/16 23:59 98 BiPAP 30 10/02/16 23:50 37.1 71 22 132/78 91 BiPAP 30 10/02/16 20:00 98 BiPAP 30 10/02/16 19:22 36.4 66 20 129/77 98 BiPAP 10/02/16 19:10 66 94 30 10/02/16 19:10 66 17 96 BiPAP/CPAP 30 10/02/16 16:30 60 97 30 10/02/16 16:08 36.6 61 18 136/80 94 3.0 10/02/16 16:00 94 Nasal Cannula 3.0 10/02/16 12:00 36.5 70 16 132/76 94 Nasal Cannula 4.0 10/02/16 12:00 94 Nasal Cannula 3.0 Lab Results: Results Past 24 Hours Test 10/02/16 11:16 10/02/16 11:25 10/02/16 14:29 10/02/16 15:43 Range/Units Bedside Glucose 160 154 70-99 mg/dl White Blood Count 9.05 4.8-10.8 K/uL Red Blood Count 3.72 4.7-6.1 M/uL Hemoglobin 9.3 14.0-18.0 g/dL Hematocrit 30.0 42-52 % Mean Corpuscular Volume 80.6 80-100 fL Mean Corpuscular Hemoglobin 25.0 25-34 pg Mean Corpuscular Hemoglobin Concent 31.0 32-36 g/dl RDW Standard Deviation 52.9 36.4-46.3 fL RDW Coefficient of Variation 17.8 11.5-14.5 % Platelet Count 223 130-400 K/uL Mean Platelet Volume 8.5 7.4-10.4 fL Arterial Blood pH 7.37 7.35-7.45 Arterial Blood Partial Pressure CO2 63 35-46 mmHg Arterial Blood Partial Pressure O2 74 80-95 mm/Hg Arterial Blood HCO3 36 19-24 mmol/L Arterial Blood Oxygen Saturation 92.3 90-95 % Arterial Blood Base Excess 8.6 -9-1.8 mEq/L Arterial Blood Gas Delivery 2.5 LITERS Junior Test POS POS Lactic Acid Level 1.1 0.4-2.0 mmol/L Test 10/02/16 16:24 10/02/16 18:09 10/02/16 19:25 10/02/16 20:17 Range/Units Bedside Glucose 128 117 70-99 mg/dl Sodium Level 140 136-145 mmol/L Potassium Level 3.6 3.5-5.1 mmol/L Chloride Level 99 98-107 mmol/L Carbon Dioxide Level 35 21-32 mmol/L Anion Gap 6.0 3-11 mmol/L Blood Urea Nitrogen 12 7-18 mg/dl Creatinine 1.20 0.60-1.40 mg/dl Est Creatinine Clear Calc Drug Dose 61.5 ml/min Estimated GFR () 68.6 Estimated GFR (Non- 59.2 BUN/Creatinine Ratio 10.2 10-20 Random Glucose 117 70-99 mg/dl Calcium Level 8.6 8.5-10.1 mg/dl Ammonia 14.0 11-32 umol/L Test 10/03/16 06:05 10/03/16 06:23 Range/Units Prothrombin Time 12.0 9.0-12.0 SECONDS Prothromb Time International Ratio 1.1 0.9-1.1 Arterial Blood pH 7.44 7.35-7.45 Arterial Blood Partial Pressure CO2 55 35-46 mmHg Arterial Blood Partial Pressure O2 64 80-95 mm/Hg Arterial Blood HCO3 37 19-24 mmol/L Arterial Blood Oxygen Saturation 89.8 90-95 % Arterial Blood Base Excess 10.8 -9-1.8 mEq/L Arterial Blood Gas Delivery 30% Junior Test POS POS Sodium Level 139 136-145 mmol/L Potassium Level 3.0 3.5-5.1 mmol/L Chloride Level 97 98-107 mmol/L Carbon Dioxide Level 33 21-32 mmol/L Anion Gap 9.0 3-11 mmol/L Blood Urea Nitrogen 13 7-18 mg/dl Creatinine 1.10 0.60-1.40 mg/dl Est Creatinine Clear Calc Drug Dose 67.1 ml/min Estimated GFR () 76.2 Estimated GFR (Non- 65.8 BUN/Creatinine Ratio 11.4 10-20 Random Glucose 126 70-99 mg/dl Calcium Level 9.2 8.5-10.1 mg/dl Total Bilirubin 0.3 0.2-1 mg/dl Direct Bilirubin < 0.1 0-0.2 mg/dl Aspartate Amino Transf (AST/SGOT) 17 15-37 U/L Alanine Aminotransferase (ALT/SGPT) 12 12-78 U/L Alkaline Phosphatase 116 45-117 U/L Total Protein 8.2 6.4-8.2 gm/dl Albumin 2.2 3.4-5.0 gm/dl Bedside Glucose 124 70-99 mg/dl
[2016-10-03 10:35] LABS: HEMATOCRIT 32.4 % (42-52); MEAN CELL VOLUME 82.2 fL (80-100); MEAN CORPUSCULAR HEMOGLOBIN 25.9 pg (25-34); MEAN CORPUSCULAR HGB CONC 31.5 g/dl (32-36); MEAN PLATELET VOLUME 9.1 fL (7.4-10.4); PLATELET COUNT 277 K/uL (130-400); RED BLOOD COUNT 3.94 M/uL (4.7-6.1); WHITE BLOOD COUNT 8.65 K/uL (4.8-10.8)
--- NOTE | 2016-10-03 10:45 | CONSULTATION REPORT ---
DATE OF CONSULTATION: 10/01/2016 CHIEF COMPLAINT: Ulceration, right thigh region. HISTORY OF PRESENT ILLNESS: The patient was recently admitted to [facility] for evaluation and management of disorientation and lethargy. The patient is a current resident at [facility]. The patient at the present time is moderately confused and unable to provide any significant past medical history regarding the development of ulceration to the hip region. PAST SURGICAL HISTORY: Noted for hernia repair, hip surgery, and knee replacement. MEDICAL HISTORY: Consistent with coronary artery disease, hypertension, atrial fibrillation, anemia, paraplegia, sigmoid volvulus. MEDICATIONS: Were noted in the nursing notes and were reviewed. ALLERGIES: TO LATEX, MACROLIDE, KETOLIDE AND AZITHROMYCIN. REVIEW OF SYSTEMS: Deferred at this time due to the patient's current confusion. PHYSICAL EXAMINATION: GENERAL: The patient is lying in hospital bed in no apparent distress. He is alert, cooperative. VITAL SIGNS: Reviewed and found to be unremarkable. The patient is afebrile. HEENT: Pupils equal and reactive to light. Sclerae clear. NECK: Supple. CHEST: Heart and lungs clear to auscultation. EXTREMITIES: Reveal the presence of ulceration measuring 4 x 6 x 0.1 cm, noted on the right upper thigh posteriorly. No active drainage is noted from this site. There is no central slough or periwound erythema present. ASSESSMENT: Stage II pressure ulcer right thigh region. PLAN: At this time, the site will be dressed with Aquacel Ag and Optifoam, change daily or as needed based upon soiling. The patient will continue to be monitored during the hospitalization and followed up in the outpatient environment as needed. Thank you.
[2016-10-03] MEDS: PANTOprazole INJ 40 MG in SYRINGE 0 ML IV SCH (11:00)
[2016-10-03] MEDS ORDERED: ALBUMIN HUMAN 5% 12.5 GM/250 ML VIAL IV ONE (11:02)
[2016-10-03] MEDS: METOPROLOL TARTRATE 1 MG/ML VIAL IV. SCH ×3 (12:00→23:31)
[2016-10-03 12:37] LABS: ISTAT HEMOGLOBIN 9.2 g/dl (14.0-18.0); ISTAT IONIZED CALCIUM 1.06 mmol/l (1.12-1.32)
[2016-10-03 12:37] LABS: ISTAT ARTERIAL BLOOD GAS HCO3 33 meq/L (19-24); ISTAT ARTERIAL BLOOD GAS PCO2 44 mmHg (35-46); ISTAT ARTERIAL BLOOD GAS PO2 107 mmHg (80-95); ISTAT ARTERIAL BLOOD GAS pH 7.48 (7.35-7.45); ISTAT CARBON DIOXIDE 34 mEq/l (24-31)
[2016-10-03] MEDS ORDERED: ONDANSETRON INJ 2 MG/ML 2 ML VIAL IV PRN (13:00)
[2016-10-03] MEDS ORDERED: ATROPINE SULFATE 0.1 MG/ML 5ML SYR IV PRN (13:00)
[2016-10-03] MEDS ORDERED: EpHEDrine SULFATE INJ 50 MG/ML AMP IV PRN (13:00)
[2016-10-03] MEDS ORDERED: PHENYLEPHRINE 100MCG/ML 5ML SYR IV PRN (13:00)
[2016-10-03] MEDS ORDERED: HYDROmorphone INJ 2 MG/ML SYR/VIAL IV PRN (13:00)
--- NOTE | 2016-10-03 13:10 | [facility] Post Operative Brief Note ---
Immediate Operative Summary Operative Date Oct 03, 2016. Pre-Operative Diagnosis Redundant sigmoid colon with vululos Post-Operative Diagnosis Same Procedure(s) Performed Sigmoid Colectomy with Formation of Colostomy Surgeon Dr Garcia Management Sme Surgeon(s) Nancy Camarillo PA-C Estimated Blood Loss 400ml Findings See dictation Specimens A. sigmoid colon Drains None Anesthesia General Complication(s) None Disposition Surgical ICU
[2016-10-03] MEDS ORDERED: PROPOFOL IV EMULSION 10 MG/ML 100 ML VIAL IV ONE (13:36)
--- NOTE | 2016-10-03 13:40 | OPERATIVE REPORT ---
DATE OF OPERATION: 10/03/2016 PREOPERATIVE DIAGNOSIS: Redundant sigmoid colon, status post volvulus, recurrent. POSTOPERATIVE DIAGNOSIS: Same. PROCEDURE: Exploratory laparotomy and sigmoid colon resection with formation of colostomy. SURGEON: Dr. Julian Garcia. QUALITY CHECKER: Fifi Camarillo PA-C. FINDINGS: The sigmoid colon was markedly redundant. The distal portion of the sigmoid colon was also dilated. There was no evidence of perforation or abscess. TECHNIQUE: The patient was given a general anesthetic and the area was prepped and draped in the usual sterile fashion. Vertical midline incision was made from the umbilicus down towards the pubic bone. The fascial bridge connecting the fascial opening where was a small umbilical hernia was also opened. The abdomen was then explored and the significantly redundant sigmoid colon was identified. The colon was reduced out of the abdomen. The site for division of the colon proximally was chosen. This was chosen above the dilated area and enough length was made for allowing for formation of the colostomy without tension. The mesentery was away from the bowel there and it was divided using the ROHIT stapler. The mesocolon for the sigmoid portion was then divided using the LigaSure in areas and a clamp to divide and ligate technique for the areas with larger vessels. It was ligated with 2-0 silk ties. The dissection was carried from proximal to distal until I was down to near the sacral promontory. The mesocolon was away from the wall of the colon around the entire circumference at that level and it was divided using a TA stapler. That was sent for pathology. There was some oozing from areas of the mesentery that were clamped and ligated with 2-0 and 3-0 silk ties where appropriate. The pelvis was irrigated and the irrigation was removed. There was no further oozing. The site for the colostomy had been previously marked. It was just above the umbilicus on the left side. I decided to move that down about a cm and a half. Skin circular portion was removed. The subcutaneous tissue was divided and hemostasis was obtained down to the fascia. A cruciate incision was made in the fascia. The muscle was split and then the peritoneum was opened. The opening allowed easily to admit 2 of my fingers through the entire length of it. The colon was brought through that area with ease. The areas of dissection were then inspected again and there was no further bleeding. The lower abdomen and pelvis were irrigated again. The irrigation was removed. The fascia was closed with a running #1 PDS. The skin was closed with margie. The colostomy was then matured. The staple line was removed and in 4 quadrants, the 3-0 Vicryl was used in a full thickness through the edge of the colon, a bite taken about 3-4 cm down along the colon wall and then through the dermis to create a [place] type colostomy. The wall of the bowel was then approximated to the dermis in between those 4 sutures. The colostomy remained viable. The skin was then cleansed, dried and a colostomy appliance was applied. A dressing was placed. Estimated blood loss was 400 mL. Sponge, needle and instrument counts were correct prior to closure. The patient tolerated the surgical procedure without complication and was transferred to recovery. I attest to the content of the Intraoperative Record and any orders documented therein. Any exceptions are noted below. MTDD
--- NOTE | 2016-10-03 14:31 | DIAGNOSTIC IMAGING REPORT ---
CHEST ONE VIEW PORTABLE CLINICAL HISTORY: Respiratory failure COMPARISON STUDY: 10/03/2016 FINDINGS: There is an endotracheal tube which extends into the right mainstem bronchus 2.5 cm distal to the suad. There is left lung atelectasis. There is right apical capping consistent with a right apical pleural effusion.[ There is a nasogastric tube which is visualized with its tip extending into the stomach IMPRESSION: 1. Right mainstem bronchus intubation with secondary left lung atelectasis. 2. Right pleural effusion. Electronically signed by: Hitesh Fajardo M.D. 10/03/2016 2:29 PM Dictated Date/Time: 10/03/2016 2:09 PM
[2016-10-03 14:51] LABS: ISTAT ARTERIAL BLOOD GAS HCO3 32 meq/L (19-24); ISTAT ARTERIAL BLOOD GAS PCO2 53 mmHg (35-46); ISTAT ARTERIAL BLOOD GAS PO2 79 mmHg (80-95); ISTAT ARTERIAL BLOOD GAS pH 7.39 (7.35-7.45); ISTAT CARBON DIOXIDE 33 mEq/l (24-31); ISTAT DELIVERY SYSTEM Ventilator; ISTAT FIO2 70 %; ISTAT PEEP 5; ISTAT RATE 14; ISTAT SITE Art Line; VE 7; Vt 500
[2016-10-03] MEDS ORDERED: ALUMINUM/MAGNESIUM SUSP 30 ML UDC NG SCH (17:00)
--- NOTE | 2016-10-03 17:18 | Anesthesiology Progress Note ---
Anesthesia Post Op Note Date & Time Oct 03, 2016 at 17:17 Vital Signs Pain Intensity: 0 Vital Signs Past 12 Hours Date Time Temp Pulse Resp B/P Pulse Ox O2 Delivery O2 Flow Rate FiO2 10/03/16 14:18 Mechanical Ventilator 10/03/16 13:46 89 18 128/70 96 Mechanical Ventilator 70 10/03/16 13:45 70 10/03/16 08:24 40 10/03/16 08:00 96 BiPAP 40 10/03/16 07:28 37.1 72 22 127/80 96 BiPAP 10/03/16 07:25 76 23 94 BiPAP/CPAP 30 10/03/16 07:25 76 94 30 Notes Mental Status: alert / awake / arousable, participated in evaluation Pt Amnestic to Procedure: Yes Nausea / Vomiting: adequately controlled Pain: adequately controlled Airway Patency, RR, SpO2: stable & adequate BP & HR: stable & adequate Hydration State: stable & adequate Anesthetic Complications: no major complications apparent The patient was left intubated PACU. I discussed the patient with Dr. Snyder and gave her a full report.
--- NOTE | 2016-10-03 18:40 | DIAGNOSTIC IMAGING REPORT ---
CHEST ONE VIEW PORTABLE CLINICAL HISTORY: post ET tube reposition check COMPARISON STUDY: Same date 2:00 PM FINDINGS: Improved aeration left hemithorax. Endotracheal tube 2 cm above the suad. Bibasilar atelectatic and/or fusion-type change. Nasogastric tube within the gastric fundus. IMPRESSION: Improved aeration left hemithorax. Endotracheal tube 2 cm above the suad. Electronically signed by: Julian Vargas M.D. 10/03/2016 6:39 PM Dictated Date/Time: 10/03/2016 6:38 PM
[2016-10-03 18:49] LABS: MEAN CELL VOLUME 80.5 fL (80-100); MEAN CORPUSCULAR HEMOGLOBIN 25.1 pg (25-34); MEAN CORPUSCULAR HGB CONC 31.2 g/dl (32-36); MEAN PLATELET VOLUME 9.1 fL (7.4-10.4); PLATELET COUNT 251 K/uL (130-400); RED BLOOD COUNT 3.23 M/uL (4.7-6.1); WHITE BLOOD COUNT 11.84 K/uL (4.8-10.8)
--- NOTE | 2016-10-03 19:02 | Progress Note ---
Progress Note Date of Service Oct 03, 2016. Progress Note POST OP LAB REVIEWED : hb drop from 10.4 in Am to 8.1 acute blood loss anemia due to brittany operative loss ordered for 1 unit of PRBC to be transfused 20 mg IV Lasix post transfusion monitor vol status -pt remains on mechanical ventilation repeat H&H in AM
[2016-10-03 19:21] LABS: ALB/GLOB RATIO 0.5 (0.9-2); BUN/CREATININE RATIO 11.1 (10-20); CALCIUM 8.2 mg/dl (8.5-10.1); CREATININE 1.3 mg/dl (0.60-1.40); POTASSIUM 4.1 mmol/L (3.5-5.1)
[2016-10-03] MEDS ORDERED: FUROSEMIDE INJ 20 MG in SYRINGE 0 ML IV SCH (19:30)
[2016-10-03] MEDS: IPRATROPIUM BROMIDE HFA INHALER INH SCH (21:00)
[2016-10-03] MEDS: LEValbuterol HFA 15GM INHALER INH SCH (21:00)
[2016-10-03] MEDS ORDERED: ACETAMINOPHEN IV 650 MG in EMPTY BAG 0 ML IV PRN (21:45)
[2016-10-03] MEDS: CHLORHEXIDINE GLUCONATE 0.12% 480 ML MT SCH (22:25)
[2016-10-03] MEDS ORDERED: SODIUM CHLORIDE 0.9% 500ML 500 ML IV STA (22:43)
[2016-10-03] MEDS ORDERED: NURSING VERBAL MED ORDER ONE (22:45)
[2016-10-03] MEDS: EUCERIN CR 120 GM JAR EXT SCH (22:59)
[2016-10-03] MEDS: SODIUM CHLORIDE 0.45% 1000ML 1,000 ML IV SCH (23:03)
[2016-10-03 23:13] LABS: HEMATOCRIT 26.9 % (42-52); MEAN CELL VOLUME 82.3 fL (80-100); MEAN CORPUSCULAR HEMOGLOBIN 25.7 pg (25-34); MEAN CORPUSCULAR HGB CONC 31.2 g/dl (32-36); MEAN PLATELET VOLUME 8.5 fL (7.4-10.4); PLATELET COUNT 224 K/uL (130-400); RED BLOOD COUNT 3.27 M/uL (4.7-6.1)
[2016-10-03 23:43] LABS: BASO % 0.1 %; BASO ABS # 0.01 K/uL (0-0.2); COMPLETE YES; IG% 0.4 %; LYMPH % 5.6 %; LYMPH ABS # 0.57 K/uL (1.2-3.4); MONO % 5.4 %; NEUT % 88.5 %; POLYCHROMASIA 1+; ROULEAUX 1+
[2016-10-04] VITALS (25 sets, daily range): BP systolic 89–135; BP diastolic 56–76; PULSE 71–86; TEMP 36.8–37.1; O2SAT 82–100
[2016-10-04] MEDS ORDERED: PROPOFOL IV EMULSION 10 MG/ML 100 ML VIAL IV ONE (00:26)
[2016-10-04] MEDS: IPRATROPIUM BROMIDE HFA INHALER INH SCH ×4 (01:23→20:27)
[2016-10-04] MEDS: LEValbuterol HFA 15GM INHALER INH SCH ×4 (01:23→20:27)
[2016-10-04] MEDS: PROPOFOL IV EMULSION 10 MG/ML 100 ML VIAL IV PRN ×2 (04:57→23:32)
[2016-10-04] MEDS: IMIPENEM/CILASTATIN IV 500 MG in D5W 100ML IV SCH ×3 (04:58→18:15)
--- NOTE | 2016-10-04 04:59 | CRITICAL CARE CONSULTATION ---
DATE OF CONSULTATION: 10/03/2016 CHIEF COMPLAINT: Abdominal pain and altered mental status. HISTORY OF PRESENT ILLNESS: The patient is a 76-year-old chronically ill gentleman, with a history of recurrent sigmoid volvulus who presented to the Emergency Department from [facility] on September 28 secondary to altered mental status. He was found to have a red, left lower extremity as well as some right lower quadrant pain. He underwent a CT scan of the brain which showed some chronic sinusitis and no acute abnormality. Chest x-ray showed mild congestion and atelectasis. CT scan of the abdomen and pelvis showed destructive process involving the right hip and right acetabulum as well as mild increase in distention of the mid sigmoid concerning for recurrent volvulus. Please see the former report for further details. He was admitted to the hospital and started on Zosyn for possible UTI or cellulitis. The GI service was consulted and on September 29 he underwent decompression of the sigmoid volvulus with endoscopic placement of a rectal tube. His Coumadin was held on admission and general surgery was consulted for possible sigmoid colectomy. He had declined surgery in the past. He was given vitamin K and from what I conceive was relatively lethargic for the next day or so. On the , he was more lethargic and underwent another CT scan of his brain. He was placed on BiPAP and given 40 mg of Lasix. A pulmonary consultation was obtained and his antibiotics were switched to imipenem. Today, he underwent a sigmoid colectomy and there were no reported intraoperative complications other than some episodes of hypoxemia which were felt to be secondary to an endotracheal tube that might be in the right mainstem. He also had some bronchospasm and received a bronchodilator treatment. He was intubated with a GlideScope and has limited neck extension and limited mouth opening. He had 1.4 liters of crystalloid, 500 mL of albumin, 400 mL estimated blood loss and 300 mL of urine output. His postop hemoglobin was 9.2. He was transferred from the operating room to the intensive care unit on the ventilator and I placed him on the following ventilator settings; assist control rate 14, tidal volume 500, FIO2 70%, PEEP 5. 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 PAST SURGICAL HISTORY: Status post inguinal hernia repair, left total knee replacement, hip replacement and sinus surgery. ALLERGIES: TO LATEX, MACROLIDES AND AZITHROMYCIN. PRESENT MEDICATIONS: Maalox, Lasix, Dilaudid, imipenem day #2, Atrovent, Xopenex, Lopressor, Eucerin, Nitrostat, Zofran, Protonix, promethazine, Fleet enema and Wagoner nasal spray. SOCIAL HISTORY: He lives at [facility] and does not smoke or drink. FAMILY HISTORY: Significant for cerebral aneurysm, colon cancer, diabetes, hypertension and prostate cancer. REVIEW OF SYSTEMS: Not obtainable due to patient's intubated state. PHYSICAL EXAMINATION: GENERAL: This is an obese man, unresponsive to painful stimuli, being transferred to the ICU from surgery. VITAL SIGNS: Temperature 37.1, heart rate 80, respiratory rate is 14, blood pressure 128/80 and oxygen saturation 98%. HEENT: Pupils are equally round and reactive to light. There is an orogastric tube and endotracheal tube in place. NECK: Short and fat. LUNGS: Have decreased breath sounds throughout, particularly in the bases. No rhonchi or wheezes. HEART: Regular rate and rhythm, no murmurs. ABDOMEN: Obese, distended and somewhat firm. There is a left lower quadrant ostomy which is dark red with some very minimal bloody output in the ostomy bag. EXTREMITIES: Warm. SCDs are in place. There is very mild erythema of the anterior aspect of the left leg. There is trace to 1+ edema. Radial and dorsalis pedis pulses are 1+. There is a right radial A-line. LABORATORY DATA: White blood cell count 11.8, hemoglobin 8.1, hematocrit 26 and platelets 251. Sodium 141, potassium 4.1, chloride 100, CO2 27, BUN 14, creatinine 1.3, blood sugar 151, calcium 8.2 and albumin 2.4. INR 1.1, pH 7.39, pCO2 53, pO2 79 and HCO3 32. MICROBIOLOGY DATA: Urine culture on 09/28/2016 is growing E. coli and Pseudomonas aeruginosa. Blood cultures on 09/28/2016; no growth. C. diff on 09/30/2016; no growth. IMAGING: Portable chest x-ray immediately postoperatively shows a right mainstem intubation with collapse of the left lung and a right pleural effusion. IMPRESSION: 1. Status post exploratory laparotomy and sigmoid colectomy secondary to recurrent sigmoid volvulus. 2. Acute hypoxemic respiratory failure and right mainstem intubation. The endotracheal tube has been pulled back. I do not see that he has any chronic lung disease, but his abdomen and body habitus do promote atelectasis. He was diuresed prior to his surgery. I would not recommend further diuresis, particularly immediately in the postoperative period. He received Lasix from the hospitalist this evening. Hold on any further Lasix for the time being as he will have fluid shifts secondary to his abdominal surgery. 3. Metabolic encephalopathy, unclear etiology. It sounds as if he did not return to his baseline prior to surgery. 4. Escherichia coli and pseudomonas urinary tract infection. I wonder if he may be colonized. I will look back and see if I can find earlier culture data. 5. Possible left lower extremity cellulitis, I think this has likely resolved. 6. History of atrial fibrillation. 7. History of neurogenic bladder. 8. Paraplegia, secondary to T5 mass. 9. Postoperative anemia, no signs of acute blood loss. PLAN: NEUROLOGIC: After the surgery he did awaken. He was placed back on his propofol after that. Titrate propofol for RASS of -1. PULMONARY: Continue bronchodilators. Wean FIO2 on the ventilator tonight and follow up chest x-ray in the morning. CARDIOVASCULAR: I would like to resume his sotalol. It looks as if it has been discontinued on September 29. His beta homer may help control his rhythm, but he may go back into or in and out of atrial fibrillation without an antiarrhythmic. Should he go into atrial fibrillation in the ICU, I will start amiodarone. GASTROINTESTINAL: Maintain n.p.o. with the exception of medications down the NG tube. Await return of bowel function. RENAL: He has renal hold on diuretics for now. Reassess renal function in the morning. Again, he will have fluid shifts and may have a chest x-ray with atelectasis and some pulmonary congestion. HEMATOLOGIC: Follow up the anemia and watch for any signs of bleeding. Eventually he will need to have his Coumadin resumed or begin a heparin infusion. INFECTIOUS DISEASE: Continue imipenem. He may be able to use cefepime. I favor a short course as I suspect he may be colonized with several organisms in his urine. MISCELLANEOUS: SCDs for DVT prophylaxis and I will add IV Protonix. Critical care time, 60 minutes. MTDD
[2016-10-04] MEDS: METOPROLOL TARTRATE 1 MG/ML VIAL IV. SCH ×3 (05:05→18:00)
[2016-10-04] MEDS: SODIUM CHLORIDE 0.45% 1000ML 1,000 ML IV SCH ×3 (05:25→18:58)
[2016-10-04 06:38] LABS: INR 1.1 (0.9-1.1); PROTHROMBIN TIME (PATIENT) 11.6 SECONDS (9.0-12.0)
[2016-10-04] MEDS: INSULIN ASPART 100 UNITS/ML 3 ML PEN SC SCH ×4 (06:45→21:00)
[2016-10-04 07:08] LABS: BUN/CREATININE RATIO 10.2 (10-20); CALCIUM 7.7 mg/dl (8.5-10.1); CREATININE 1.5 mg/dl (0.60-1.40); PHOSPHORUS 2.9 mg/dl (2.5-4.9); POTASSIUM 3.3 mmol/L (3.5-5.1)
--- NOTE | 2016-10-04 07:28 | PROGRESS NOTE ---
DATE: 10/04/2016 SUBJECTIVE: The patient was intubated in the intensive care unit. Dr. Snyder's note was appreciated. He underwent a sigmoid colectomy for recurrent sigmoid volvulus, had developed some hypoxemia, was intubated and his blood gas actually looks fairly good. He is sedated right now and comfortable. According to the nursing personnel he had a fairly good night last night with no significant abnormalities. He did have a low urine output and was given some IV fluids. He has significant oral secretions noted which are clear. OBJECTIVE: VITAL SIGNS: Stable. Blood pressure 118/65, his pulse is 80 and regular, respiratory rate of 16. He is afebrile. Blood gas revealed a pH of 7.39, pCO2 53, pO2 of 79, 1438 in yesterday, min .ventilation of 7 liters with tidal volume of 500, FIO2 70%, PEEP of 5 and respiratory rate of 14. Blood gas for this morning is pending. I\T\Os; 1476 in and 1025 out. Weight 111.1 kilograms, that is about stable for him. HEENT: Endotracheal tube is in good position. No subcutaneous emphysema is noted. Nose exam is unremarkable. No significant nasal drainage is noted. No adenopathy is noted. No neck vein distention or HJR. HEART: Regular rate and rhythm. No murmurs are heard. LUNGS: Reveal decreased breath sounds, otherwise are clear with a few scattered rhonchi in the right mid lung field anterior. No fremitus is noted. ABDOMEN: Slightly distended. EXTREMITIES: Reveal no cyanosis, clubbing or edema. Chest x-ray from last night at 6:00 p.m. showed improved aeration of the left hemithorax with some basilar atelectasis and endotracheal tube 2 cm above the suad. Chest film from today is pending. Hemoglobin was 8.4 yesterday. CBC and PRP are pending for today. TSH was unremarkable. MRSA DNA surveillance screen from the from nasal swab was positive as was on the . IMPRESSION: 1. Respiratory failure postoperatively. 2. Hypoventilation syndrome. 3. Sigmoid volvulus status post sigmoid resection yesterday. 4. Anemia. RECOMMENDATION: At this point, I think attempting to wean would be appropriate. He could be changed down to a CPAP of 5 with some pressure support and see how he does once he is off all his sedatives. He may not be able to be weaned today because of the abdominal surgery. If he is weaned and extubated, he will need to be watched very carefully. He will be placed on BiPAP each time he sleeps because he does have profound hypoventilation syndrome. Overall, he is stable. [facility]
--- NOTE | 2016-10-04 07:30 | PROGRESS NOTE ---
DATE: 10/04/2016 NO DICTATION.
--- NOTE | 2016-10-04 07:47 | DIAGNOSTIC IMAGING REPORT ---
SINGLE VIEW CHEST CLINICAL HISTORY: CHF. FINDINGS: An AP, portable, upright chest radiograph is compared to study dated 10/03/2016. The examination is significantly degraded by portable technique, large body habitus, and patient rotation. Endotracheal and enteric tubes are again noted. The heart is enlarged and there is atherosclerotic calcification of the thoracic aorta. The pulmonary vasculature is noncongested. There are low lung volumes. Pleural effusions are identified with bibasilar consolidation. No pneumothorax is seen. The skeletal structures are osteopenic. Advanced arthritic change is seen in the shoulders. IMPRESSION: 1. Stable lines and tubes. 2. Cardiomegaly without clear radiographic evidence of congestive failure. 3. Low lung volumes. 4. Pleural effusions with bibasilar consolidation. This likely represents atelectasis. Clinical correlation will be required. Electronically signed by: Juan Garcia M.D. 10/04/2016 7:46 AM Dictated Date/Time: 10/04/2016 7:44 AM
[2016-10-04] MEDS: LANOLIN/PETROLATUM 30 GM TUBE EXT SCH ×4 (08:01→21:13)
[2016-10-04] MEDS: CHLORHEXIDINE GLUCONATE 0.12% 480 ML MT SCH ×2 (08:02→21:11)
--- NOTE | 2016-10-04 11:50 | Surgery Progress Note ---
Surgery Progress Note Date of Service Oct 04, 2016. Subjective Post OP Day: 1 sedated on vent Objective Vital Signs: Date Time Temp Pulse Resp B/P Pulse Ox O2 Delivery O2 Flow Rate FiO2 10/04/16 09:15 50 10/04/16 08:00 36.9 73 22 110/64 99 CPAP 30 73 73 10/04/16 08:00 Mechanical Ventilator 30 10/04/16 08:00 30 10/04/16 07:28 50 10/04/16 06:00 81 16 118/65 97 10/04/16 05:07 86 16 111/64 95 10/04/16 05:05 84 104/61 10/04/16 05:00 37.1 84 16 105/59 96 10/04/16 04:50 50 10/04/16 04:24 98 Mechanical Ventilator 70 10/04/16 04:24 70 10/04/16 04:00 84 16 104/61 95 10/04/16 03:00 86 16 89/76 95 10/04/16 02:00 84 16 97/59 95 10/04/16 01:23 50 10/04/16 01:00 85 16 90/56 94 10/04/16 00:05 70 10/04/16 00:05 98 Mechanical Ventilator 70 10/04/16 00:00 81 16 96/59 97 10/03/16 23:31 88 123/81 10/03/16 23:30 84 16 104/63 97 10/03/16 23:15 86 16 119/73 94 10/03/16 23:00 88 16 102/64 96 10/03/16 22:45 85 16 110/67 98 10/03/16 22:30 87 16 100/62 97 10/03/16 22:15 87 16 100/63 97 10/03/16 22:00 87 16 95/61 97 10/03/16 21:45 85 16 96/61 97 10/03/16 21:30 86 16 101/64 98 10/03/16 21:15 37.1 83 16 96/62 98 10/03/16 21:00 84 16 98/62 97 10/03/16 21:00 70 10/03/16 20:45 37.0 87 16 90/60 97 10/03/16 20:30 84 16 101/65 98 10/03/16 20:15 36.3 83 16 95/61 97 10/03/16 20:00 70 10/03/16 20:00 36.5 81 16 108/60 98 10/03/16 20:00 98 Mechanical Ventilator 70 10/03/16 19:09 88 16 117/79 96 10/03/16 19:00 89 16 122/70 97 10/03/16 18:28 88 123/81 10/03/16 18:00 89 24 123/81 98 Mechanical Ventilator 70 89 89 10/03/16 17:19 70 10/03/16 16:00 70 10/03/16 16:00 95 Mechanical Ventilator 70 10/03/16 16:00 37.0 86 14 123/81 96 Mechanical Ventilator 70 86 86 10/03/16 14:18 Mechanical Ventilator 10/03/16 13:46 89 18 128/70 96 Mechanical Ventilator 70 10/03/16 13:45 70 General Appearance: WD/WN, no apparent distress Head: normocephalic, atraumatic Neck: supple, trachea midline Respiratory/Chest: + decreased breath sounds, + rhonchi Cardiovascular: regular rate, rhythm Abdomen: soft, + abnormal bowel sounds, + distended, + tenderness, + pertinent finding (ostomy purple but looks good; some fluid drainage; no gas) Incision(s): clean, dry, intact Extremities: non-tender, no pedal edema Laboratory Results: Results Past 24 Hours Test 10/03/16 12:11 10/03/16 12:18 10/03/16 14:38 10/03/16 18:16 Range/Units Bedside Hemoglobin 9.2 14.0-18.0 g/dl Bedside Hematocrit 27 42-52 % Bedside Sodium 139 135-144 mEq/L Bedside Potassium 3.3 3.3-5.0 mEq/L Bedside Chloride 95 101-112 mEq/L Bedside Total CO2 29 24-31 mEq/l Anion Gap 19.0 16-25 mmol/L Bedside Blood Urea Nitrogen 11 7-18 mg/dl Bedside Creatinine 1.0 0.6-1.3 mg/dl Bedside Glucose (other) 128 70-99 mg/dl Bedside Ionized Calcium (Yoko) 1.06 1.12-1.32 mmol/l Bedside Blood Gas pH (LAB) 7.48 7.39 7.35-7.45 Bedside Blood Gas pCO2 (LAB) 44 53 35-46 mmHg Bedside Blood Gas pO2 (LAB) 107 79 80-95 mmHg Bedside Blood Gas HCO3 (LAB) 33 32 19-24 meq/L Bedside Blood Gas Total CO2 34 33 24-31 mEq/l Bedside Blood Gas Base Excess (LAB) 9.0 7.0 -9-1.8 meq/L Bedside Blood Gas O2 Saturation 98.0 95.0 90-95 % Blood Gas Sample Site Art Line Junior Test NA Oxygen Delivery Device Ventilator Bedside Oxygen Rate (breaths/min) 14 Blood Gas Minute Ventilation 7 Bedside FiO2 70 % Blood Gas Tidal Volume 500 Blood Gas PEEP 5 Bedside Glucose 158 70-99 mg/dl Test 10/03/16 18:26 10/03/16 22:55 10/03/16 22:58 10/04/16 05:44 Range/Units White Blood Count 11.84 10.10 4.8-10.8 K/uL Red Blood Count 3.23 3.27 4.7-6.1 M/uL Hemoglobin 8.1 8.4 14.0-18.0 g/dL Hematocrit 26.0 26.9 42-52 % Mean Corpuscular Volume 80.5 82.3 80-100 fL Mean Corpuscular Hemoglobin 25.1 25.7 25-34 pg Mean Corpuscular Hemoglobin Concent 31.2 31.2 32-36 g/dl RDW Standard Deviation 53.1 53.6 36.4-46.3 fL RDW Coefficient of Variation 17.9 17.8 11.5-14.5 % Platelet Count 251 224 130-400 K/uL Mean Platelet Volume 9.1 8.5 7.4-10.4 fL Sodium Level 141 140 136-145 mmol/L Potassium Level 4.1 3.3 3.5-5.1 mmol/L Chloride Level 100 99 98-107 mmol/L Carbon Dioxide Level 27 33 21-32 mmol/L Anion Gap 14.0 8.0 3-11 mmol/L Blood Urea Nitrogen 14 15 7-18 mg/dl Creatinine 1.30 1.50 0.60-1.40 mg/dl Est Creatinine Clear Calc Drug Dose 56.8 49.7 ml/min Estimated GFR () 62.3 52.4 Estimated GFR (Non- 53.8 45.2 BUN/Creatinine Ratio 11.1 10.2 10-20 Random Glucose 151 139 70-99 mg/dl Calcium Level 8.2 7.7 8.5-10.1 mg/dl Total Bilirubin 0.6 0.5 0.2-1 mg/dl Aspartate Amino Transf (AST/SGOT) 18 11 15-37 U/L Alanine Aminotransferase (ALT/SGPT) 12 14 12-78 U/L Alkaline Phosphatase 91 74 45-117 U/L Total Protein 7.2 6.8 6.4-8.2 gm/dl Albumin 2.4 2.3 3.4-5.0 gm/dl Globulin 4.8 2.5-4.0 gm/dl Albumin/Globulin Ratio 0.5 0.9-2 Neutrophils (%) (Auto) 88.5 % Lymphocytes (%) (Auto) 5.6 % Monocytes (%) (Auto) 5.4 % Eosinophils (%) (Auto) 0.0 % Basophils (%) (Auto) 0.1 % Neutrophils # (Auto) 8.93 1.4-6.5 K/uL Lymphocytes # (Auto) 0.57 1.2-3.4 K/uL Monocytes # (Auto) 0.55 0.11-0.59 K/uL Eosinophils # (Auto) 0.00 0-0.5 K/uL Basophils # (Auto) 0.01 0-0.2 K/uL Immature Granulocyte % (Auto) 0.4 % Immature Granulocyte # (Auto) 0.04 0.00-0.02 K/uL Polychromasia 1+ Rouleau 1+ Bedside Glucose 165 70-99 mg/dl Prothrombin Time 11.6 9.0-12.0 SECONDS Prothromb Time International Ratio 1.1 0.9-1.1 Phosphorus Level 2.9 2.5-4.9 mg/dl Magnesium Level 2.0 1.8-2.4 mg/dl Direct Bilirubin 0.2 0-0.2 mg/dl Test 10/04/16 06:14 Range/Units Bedside Glucose 155 70-99 mg/dl Microbiology Results 10/03/16 MRSA DNA Surveillance Screen - Final, Complete Specimen Positive for MRSA by DNA Probe Assessment & Plan s/p open sigmoid resection and colostomy -weaning vent -ngt out if extubated -npo
[2016-10-04] MEDS: PANTOprazole INJ 40 MG in SYRINGE 0 ML IV SCH (12:08)
[2016-10-04] MEDS ORDERED: POTASSIUM CHLORIDE 20 MEQ/15 ML UDC PO STA (13:43)
[2016-10-04] MEDS ORDERED: FUROSEMIDE 40 MG/4 ML VIAL IV STA (13:49)
[2016-10-04] MEDS: POTASSIUM CHLR 10 MEQ / WTR 10 MEQ in PREMIXED WATER 100 ML IV SCH ×4 (14:25→18:14)
[2016-10-04] MEDS: HYDROmorphone INJ 0.5 MG/0.5 ML SYR IV PRN ×2 (15:54→22:35)
--- NOTE | 2016-10-04 20:52 | Progress Note ---
Internal Med Progress Note Date of Service: Oct 04, 2016. Provider Documentation: pt seen at 1 pm today SUBJECTIVE: awake and alert pointing to ET Tube to be taken off on CPAP trial plan for extubation later today OBJECTIVE: Vital Signs-as noted below Exam: General-elderly male, more awake Eyes-sclera non icteric, ENT-on vent , ET tube , OG tube present Lungs-i+ wheeze , positive rales at base Heart-regular Abdomen-, soft, left lower quadrant colostomy intact , dark liquid stool in bag Extremities--improved red on rt lower leg /no warmth or tenderness /chronic venous stasis change on left lower leg , + 2-3 pedal edema , un stageable sacral wound on both buttock and sacral area Neuro-awake , paraplegic at baseline Lab data as noted below. 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 with similar presentation-had colonoscopic decompression pt refused surgery at that time presented again from [facility] with altered mental status and abdominal distention Abdominal CT shows recurrent Sigmoid volvulus appreciate GI input and management, s/p Colonoscopic decompression followed by sigmoid colon tube placement serial KUB -shows no significant bowel dilatation , colonic tube in sigmoid colon surgery has been consulted-appreciate input -s/p Surgical resection of Sigmoid colon by Dr Garcia on Thursday10/03/16 had Colostomy placed remains in ICU on mechanical ventilation post op colostomy has been having dark liquid stool out out surgery following ACUTE BLOOD LOSS ANEMIA : due to above given 1 unit of PRBC tx post op 20 mg IV Lasix afterwards follow H&H RT Lower ext cellulitis : cont on Imipenem Sacral wound : present on admission evaluated with wound care nurse buttock wound appear to be hard and boggy need to R/o abscess /underlying fluid collection wound care Dr Julian Cam consulted-appreciate input Stage II pressure ulcer right thigh region. recommends : dressing with Aquacel Ag and Optifoam, change daily or as needed based upon soiling. pt will be continue to be followed by wound Care while in Hospital and will need out pat wound clinic follow up COMPLICATED UTI : with microorganism with MDR due to chronic indwelling catheter in setting of Neurogenic bladder Urine culture -E coli /Pseudomonas -multi Drug resistant ABx adjusted to Imipenem -per sensitivity HX OF Paroxysmal A. Fib rate controlled with sotalol Sotalol on hold for NPO status /post op can be resumed via NG tube when OK by surgery to PO intake IV Lopressor 5 mg q 6 hrs Coumadin on hold for possible colon surgery INR reversed with Vit K ( 2 mg PO vit K given on 09/30/16 ) will be resumed when acceptable bleeding risk post op -will D/w Surgery ACUTE CHF WITH DIASTOLIC FAILURE : echo 08/13/16 showed EF 60-65% with mild LVH cont IV Lasix Diuresis due to worsening of pulmonary congestion /respiratory status continue Mechanical ventilation with ICU monitoring getting IV Lasix intermittently follow vol status appreciate input form Critical care ACUTE KIDNEY INJURY /CKD STAGE 3 : Cr elevated 1.5 ( baseline 1.3 ) due to bowel surgery /vol shift started on IV Fluids for low urine out put monitor PRP daily DM2 insulin sliding scale DVT ppx scd and teds Coumadin will be resumed when acceptation bleeding risk post op bowel surgery DNR DISPOSITION : pt will remains in ICU with Mechanical ventilation for respiratory support resident at [facility] return to [facility] when medically stable Social service consulted for discharge planning Contact IRENAPatricia cMcoy Liner -Cousin contact number [phone]. Vital Signs: Date Time Temp Pulse Resp B/P Pulse Ox O2 Delivery O2 Flow Rate FiO2 10/05/16 06:00 14 108/61 95 Mechanical Ventilator 35 10/05/16 05:12 35 10/05/16 05:00 26 145/64 87 10/05/16 05:00 26 145/64 87 Mechanical Ventilator 35 10/05/16 04:05 93 Mechanical Ventilator 40 10/05/16 04:05 60 10/05/16 04:00 36.9 110/67 Mechanical Ventilator 35 10/05/16 03:00 12 134/66 91 Mechanical Ventilator 35 10/05/16 02:18 35 10/05/16 02:00 15 108/73 100 Mechanical Ventilator 35 10/05/16 01:00 16 100/67 92 Mechanical Ventilator 40 10/05/16 00:24 93 Mechanical Ventilator 40 10/05/16 00:24 60 10/05/16 00:00 14 101/55 95 Mechanical Ventilator 40 10/04/16 23:23 40 10/04/16 23:00 8 114/61 100 Mechanical Ventilator 40 10/04/16 22:00 13 115/62 100 Mechanical Ventilator 40 10/04/16 21:00 0 114/61 100 Mechanical Ventilator 40 10/04/16 20:27 40 10/04/16 20:20 93 Mechanical Ventilator 60 10/04/16 20:20 60 10/04/16 20:00 36.8 18 127/69 Mechanical Ventilator 40 10/04/16 19:00 15 130/75 Mechanical Ventilator 60 10/04/16 18:00 15 110/65 82 Mechanical Ventilator 40 132/71 10/04/16 18:00 50 10/04/16 17:00 22 135/72 92 10/04/16 16:15 93 CPAP 40 Mechanical Ventilator 10/04/16 16:15 40 10/04/16 16:00 36.9 79 20 124/67 94 129/71 10/04/16 15:00 78 18 127/70 94 78 10/04/16 14:05 50 10/04/16 14:00 78 21 116/63 95 CPAP 40 78 114/63 Mechanical Ventilator 78 10/04/16 12:07 79 127/65 10/04/16 12:00 40 10/04/16 12:00 Mechanical Ventilator 30 10/04/16 12:00 78 20 116/63 94 CPAP 40 78 Mechanical Ventilator 78 10/04/16 11:30 50 10/04/16 10:00 94 CPAP 40 Mechanical Ventilator 10/04/16 10:00 71 22 CPAP 71 Mechanical Ventilator 71 10/04/16 09:15 50 Lab Results: Results Past 24 Hours Test 10/04/16 12:13 10/04/16 17:00 10/04/16 21:16 10/04/16 22:20 Range/Units Bedside Glucose 137 153 132 70-99 mg/dl Urine Color YELLOW Urine Appearance CLEAR CLEAR Urine pH 6.0 4.5-7.5 Urine Specific [place] 1.010 1.000-1.030 Urine Protein NEG NEG Urine Glucose (UA) NEG NEG Urine Ketones TRACE NEG Urine Occult Blood NEG NEG Urine Nitrite NEG NEG Urine Bilirubin NEG NEG Urine Urobilinogen NEG NEG Urine Leukocyte Esterase TRACE NEG Urine WBC (Auto) 1-5 0-5 /hpf Urine RBC (Auto) 0-4 0-4 /hpf Urine Hyaline Casts (Auto) 1-5 0-5 /lpf Urine Epithelial Cells (Auto) 0-5 0-5 /lpf Urine Bacteria (Auto) NEG NEG Test 10/05/16 05:03 10/05/16 06:47 10/05/16 08:12 Range/Units White Blood Count 9.07 4.8-10.8 K/uL Red Blood Count 2.97 4.7-6.1 M/uL Hemoglobin 7.7 14.0-18.0 g/dL Hematocrit 25.2 42-52 % Mean Corpuscular Volume 84.8 80-100 fL Mean Corpuscular Hemoglobin 25.9 25-34 pg Mean Corpuscular Hemoglobin Concent 30.6 32-36 g/dl RDW Standard Deviation 57.0 36.4-46.3 fL RDW Coefficient of Variation 18.2 11.5-14.5 % Platelet Count 248 130-400 K/uL Mean Platelet Volume 9.1 7.4-10.4 fL Prothrombin Time 11.3 9.0-12.0 SECONDS Prothromb Time International Ratio 1.1 0.9-1.1 Sodium Level 139 136-145 mmol/L Potassium Level 3.2 3.5-5.1 mmol/L Chloride Level 98 98-107 mmol/L Carbon Dioxide Level 31 21-32 mmol/L Anion Gap 10.0 3-11 mmol/L Blood Urea Nitrogen 12 7-18 mg/dl Creatinine 1.20 0.60-1.40 mg/dl Est Creatinine Clear Calc Drug Dose 62.1 ml/min Estimated GFR () 68.6 Estimated GFR (Non- 59.2 BUN/Creatinine Ratio 9.7 10-20 Random Glucose 119 70-99 mg/dl Calcium Level 7.8 8.5-10.1 mg/dl Phosphorus Level 2.2 2.5-4.9 mg/dl Magnesium Level 1.7 1.8-2.4 mg/dl Bedside Glucose 122 70-99 mg/dl Blood Gas Sample Site Art Line Bedside Blood Gas pH (LAB) 7.41 7.35-7.45 Bedside Blood Gas pCO2 (LAB) 49 35-46 mmHg Bedside Blood Gas pO2 (LAB) 65 80-95 mmHg Bedside Blood Gas HCO3 (LAB) 31 19-24 meq/L Bedside Blood Gas Total CO2 33 24-31 mEq/l Bedside Blood Gas Base Excess (LAB) 7.0 -9-1.8 meq/L Bedside Blood Gas O2 Saturation 92.0 90-95 % Junior Test NA Oxygen Delivery Device Ventilator Bedside Oxygen Rate (breaths/min) 14 Blood Gas Minute Ventilation 7.5 Bedside FiO2 35 % Blood Gas Tidal Volume 500 Blood Gas PEEP 5 Microbiology Results 10/04/16 Urine Culture, Received Pending
[2016-10-04] MEDS: EUCERIN CR 120 GM JAR EXT SCH (21:12)
[2016-10-04 23:10] LABS: URINE APPEARANCE CLEAR (CLEAR); URINE BILIRUBIN NEG (NEG); URINE COLOR YELLOW; URINE EPITHELIAL CELL AUTO 0-5 /lpf (0-5); URINE NITRITE NEG (NEG); UROBILINOGEN NEG (NEG)
[2016-10-04 23:18] LABS: MANUAL MICROSCOPIC REQUIRED? NO; REVIEW REQ? NO
[2016-10-05] VITALS (28 sets, daily range): BP systolic 100–145; BP diastolic 55–86; PULSE 72–94; TEMP 36.6–37.2; O2SAT 87–100
[2016-10-05] MEDS: IMIPENEM/CILASTATIN IV 500 MG in D5W 100ML IV SCH ×5 (00:32→23:03)
--- NOTE | 2016-10-05 00:41 | CRITICAL CARE PROGRESS NOTE ---
DATE: 10/04/2016 SUBJECTIVE: Today is postop day #1 status post sigmoid colectomy secondary to recurrent volvulus. The patient did a weaning trial of CPAP 06/16 today. However, he ended up becoming tachypneic and his pressure support was not able to be decreased much beyond that. He received 40 mg of Lasix. He complained of some abdominal pain and is receiving Dilaudid. There has not been anything significant out of his ostomy bag. His NG tube was discontinued, but replaced later in the day. OBJECTIVE: VITAL SIGNS: T-max 37.1, heart rate 70-80, respiratory rate 20, blood pressure 89-118/50s-70s and oxygen saturation 99%. When I saw him, he was on CPAP /, 50%, 24-hour fluid balance positive 451 mL GENERAL: He is awake, he follows simple commands with the upper extremities. LUNGS: Have bibasilar rales, very decreased breath sounds in the bases, no rhonchi or wheezes. HEART: Regular rate and rhythm. ABDOMEN: Distended, firm, appropriately tender. No bowel sounds. EXTREMITIES: With 1+ edema. LABORATORY DATA: White blood cell count 10.1, hemoglobin 8.4, hematocrit 26.9 and platelets 224. Sodium 140, potassium 3.3, chloride 99, CO2 33, BUN 15, creatinine 1.5, AST 11 and albumin 2.3. MICROBIOLOGY DATA: Reviewed. Urine culture from 09/28/2016 shows E. coli and pseudomonas. Followup urine on 10/04/2016 is pending. MEDICATIONS AND INFUSIONS: Acetaminophen, chlorhexidine, Dilaudid, imipenem, insulin, Atrovent, Xopenex, Lopressor, Zofran, Protonix, promethazine, propofol, [place] nasal spray and normal saline. IMAGING: Portable chest x-ray from this morning shows bibasilar atelectasis and elevation of the right hemidiaphragm. IMPRESSION: 1. Postoperative day #1 shows post-exploratory laparotomy and sigmoid colectomy secondary to recurrent sigmoid volvulus, awaiting return of bowel function. 2. Acute hypoxemic respiratory failure. His large abdomen and his body habitus is contributing to his atelectasis. 3. Metabolic encephalopathy, may be improved. He certainly is active today, trying to pull out his two endotracheal tubes at times and making sure that he got his nurses' attention when he needed it. 4. Escherichia coli and pseudomonas urinary tract infection. 5. Possible left lower extremity cellulitis, I believe, resolved. 6. History of atrial fibrillation, presently in sinus rhythm. 7. History of neurogenic bladder. 8. History of paraplegia. 9. Postoperative anemia. 10. Sacral decubitus ulcer 11. History of diastolic dysfunction and afib PLAN: Neruo: Avoid sedatives and treat pain adequately. 1. PULMONARY: Continue attempts at ventilator weaning. I gave him some Lasix and stopped his fluids last evening. 2. CARDIOVASCULAR: Continue IV beta homer and watch volume status carefully. He was on Sotolol as an outpatient. Consider changing to amiodarone or restart sotolol when he is able to take po. 3. GASTROINTESTINAL: Await return of bowel function. Continue proton pump inhibitor for GI prophylaxis. Mobilize if possible. 4. RENAL: Creatinine is up a bit today. With his chronic kidney disease, he may require higher doses of Lasix when it is time to formally diurese him. 5. HEMATOLOGIC: I discussed with surgery the timing of resuming IV heparin or Coumadin. 6. INFECTIOUS DISEASE: Continue imipenem for now. Critical care time, 40 minutes. MTDD
[2016-10-05] MEDS: IPRATROPIUM BROMIDE HFA INHALER INH SCH ×3 (01:55→15:06)
[2016-10-05] MEDS: LEValbuterol HFA 15GM INHALER INH SCH ×3 (01:55→15:06)
[2016-10-05] MEDS: PROPOFOL IV EMULSION 10 MG/ML 100 ML VIAL IV PRN ×2 (05:21→10:36)
[2016-10-05] MEDS: HYDROmorphone INJ 0.5 MG/0.5 ML SYR IV PRN ×4 (05:22→20:23)
[2016-10-05 05:31] LABS: HEMATOCRIT 25.2 % (42-52); MEAN CELL VOLUME 84.8 fL (80-100); MEAN CORPUSCULAR HEMOGLOBIN 25.9 pg (25-34); MEAN CORPUSCULAR HGB CONC 30.6 g/dl (32-36); MEAN PLATELET VOLUME 9.1 fL (7.4-10.4); PLATELET COUNT 248 K/uL (130-400); RED BLOOD COUNT 2.97 M/uL (4.7-6.1); WHITE BLOOD COUNT 9.07 K/uL (4.8-10.8)
[2016-10-05 05:42] LABS: INR 1.1 (0.9-1.1); PROTHROMBIN TIME (PATIENT) 11.3 SECONDS (9.0-12.0)
[2016-10-05 05:57] LABS: BUN/CREATININE RATIO 9.7 (10-20); CALCIUM 7.8 mg/dl (8.5-10.1); CREATININE 1.2 mg/dl (0.60-1.40); MAGNESIUM 1.7 mg/dl (1.8-2.4); POTASSIUM 3.2 mmol/L (3.5-5.1)
[2016-10-05] MEDS: METOPROLOL TARTRATE 1 MG/ML VIAL IV. SCH ×5 (06:00→23:13)
[2016-10-05 06:04] LABS: PHOSPHORUS 2.2 mg/dl (2.5-4.9)
[2016-10-05] MEDS: INSULIN ASPART 100 UNITS/ML 3 ML PEN SC SCH ×4 (06:33→23:19)
--- NOTE | 2016-10-05 07:20 | DIAGNOSTIC IMAGING REPORT ---
CHEST ONE VIEW PORTABLE CLINICAL HISTORY: Congestive heart failure. COMPARISON STUDY: Chest radiograph October 04, 2016. FINDINGS: This exam is compromised by suboptimal penetration. A left subclavian central line is in place. Lung volumes are diminished. There is no pneumothorax. Cardiomediastinal silhouette is stable. There is pulmonary vascular congestion. The tip of the endotracheal tube is 6 mm above the suad. The tip of the nasogastric tube is obscured but at least within the mid body of the stomach. Bibasilar opacities persist. IMPRESSION: 1. Tip of endotracheal tube 6 mm above the suad. 2. Diminished lung volumes with persistent bibasilar opacities. 3. Pulmonary vascular congestion without overt pulmonary edema. Electronically signed by: Chad Mcintyre M.D. 10/05/2016 7:19 AM Dictated Date/Time: 10/05/2016 7:17 AM
[2016-10-05] MEDS: CHLORHEXIDINE GLUCONATE 0.12% 480 ML MT SCH (08:04)
--- NOTE | 2016-10-05 08:32 | PROGRESS NOTE ---
DATE: 10/05/2016 SUBJECTIVE: The patient is comfortable this morning with being sedated on the ventilator. Hemodynamically, he has been stable. His secretions are scant. He continues to have distended abdomen with low tidal volumes, requires ventilator support. His vital signs are stable and he is afebrile. According to nursing personnel he had a fairly stable night late last night with increased amounts of secretions. He was medicated with some Dilaudid. He remains in atrial fibrillation, although when I reviewed the monitored it appeared to be perhaps in normal sinus rhythm with occasional ectopic beats this morning. His endotracheal tube is in good position. No significant secretions Are noted in the tube. OBJECTIVE: NECK: There is no neck vein distention or HJR. No subcutaneous emphysema is noted. HEART: Regular rate and rhythm. His rhythm is stable, I do not detect any of his significant gallops. He does have occasional ectopic beat. LUNGS: Reveal decreased breath sounds bilaterally, otherwise are clear. ABDOMEN: Distended and tympanitic. The NG tube is in good position. He has no cyanosis. He does have edema of his feet with some erythematous changes over the right anterior tibial area. LABORATORY DATA: Hemoglobin was down to 7.7 with hematocrit 25%, blood gas on the 24th is noted. PRP is stable with a potassium of 3.2, magnesium is 1.7, phosphorus is low as well. MRSA DNA surveillance screen nasal swab was positive. IMPRESSION: 1. Respiratory failure with hypoventilation syndrome. 2. Sigmoid volvulus status post resection. 3. Anemia. RECOMMENDATIONS: 1. At this point, I think the patient would benefit from transfusion of 2 units of packed cells. 2. Correct the magnesium and phosphorus. 3. Continue with weaning from the ventilator, although it may be difficult since his abdomen remains distended. Overall, pulmonary wang he is stable. He will be followed by Dr. Patel this week.
[2016-10-05 08:48] LABS: ISTAT ARTERIAL BLOOD GAS HCO3 31 meq/L (19-24); ISTAT ARTERIAL BLOOD GAS PCO2 49 mmHg (35-46); ISTAT ARTERIAL BLOOD GAS PO2 65 mmHg (80-95); ISTAT ARTERIAL BLOOD GAS pH 7.41 (7.35-7.45); ISTAT CARBON DIOXIDE 33 mEq/l (24-31); ISTAT DELIVERY SYSTEM Ventilator; ISTAT FIO2 35 %; ISTAT PEEP 5; ISTAT RATE 14; ISTAT SITE Art Line; VE 7.5; Vt 500
[2016-10-05] MEDS ORDERED: POTASSIUM PHOS 3 MMOL/1 ML INFUSION IV STA ×2 (09:26→18:37)
--- NOTE | 2016-10-05 09:31 | Progress Note ---
Internal Med Progress Note Date of Service: Oct 05, 2016. Provider Documentation: SUBJECTIVE: remains on mechanical ventilation sedated on propofol opens eyes briefly to voice , no recognition dark liquid stool in colostomy bag afebrile remained stable hemodynamically overnight OBJECTIVE: Vital Signs-as noted below Exam: General-elderly male, sedated on Vent Eyes-sclera non icteric, ENT-on vent , ET tube , OG tube present Lungs-i+ wheeze , positive rales at base Heart-regular Abdomen-, soft, left lower quadrant colostomy intact , dark liquid stool in bag Extremities--improved red on rt lower leg /no warmth or tenderness /chronic venous stasis change on left lower leg , + 2-3 pedal edema , un stageable sacral wound on both buttock and sacral area Neuro-on propofol gtt for mechanical ventilation , paraplegic at baseline Lab data as noted below. ASSESSMENT & PLAN: ACUTE RESPIRATORY FAILURE : multifactorial -acute CHF with diastolic dysfunction /underlying severe ANDREW / hypoventilation syndrome /basilar lung atelectasis due to recent bowel surgery remains in Mechanical ventilation post op bowel surgery ABG this AM pH 7.41/pCo2 49/pO2 65/Hco3 31 appreciate input form Critical care Cxray 10/05/16 : 1. Tip of endotracheal tube 6 mm above the suad. 2. Diminished lung volumes with persistent bibasilar opacities. 3. Pulmonary vascular congestion without overt pulmonary edema. 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 with similar presentation-had colonoscopic decompression pt refused surgery at that time presented again from [facility] with altered mental status and abdominal distention Abdominal CT shows recurrent Sigmoid volvulus appreciate GI input and management, s/p Colonoscopic decompression followed by sigmoid colon tube placement serial KUB -shows no significant bowel dilatation , colonic tube in sigmoid colon surgery has been consulted-appreciate input -s/p Surgical resection of Sigmoid colon by Dr Garcia on Thursday10/03/16 POD # 2 had Colostomy placed remains in ICU on mechanical ventilation post op colostomy has been having dark liquid stool out out stool for C diff -negative surgery following ACUTE BLOOD LOSS ANEMIA : due to above given 1 unit of PRBC tx post op on 10/03/16 HB dropped to 7.7 no active bleeding episodes noted , dark liquid in colostomy bag ordered for 1 unit of PRBC to be transfused today 20 mg IV Lasix afterwards ( pt has robin vol overload ) follow H&H RT Lower ext cellulitis : cont on Imipenem MICROBIOLOGY : BLOOD culture : 09/28/16 -no growth stool C diff assay -negative MRSA nasal probe + ve Urine culture on 09/28/16 E.COLI Pseudomonas -multidrug resistance on Imipenem per sensitivity ; ist day of tx 10/02/16 Day # 4 repeat Urine culture on 10/04/16 -report pending LOW K/MG /PHOS : replaced follow lytes Sacral wound : present on admission evaluated with wound care nurse buttock wound appear to be hard and boggy need to R/o abscess /underlying fluid collection wound care Dr Julian Cam consulted-appreciate input Stage II pressure ulcer right thigh region. recommends : dressing with Aquacel Ag and Optifoam, change daily or as needed based upon soiling. pt will be continue to be followed by wound Care while in Hospital and will need out pat wound clinic follow up COMPLICATED UTI : with microorganism with MDR due to chronic indwelling catheter in setting of Neurogenic bladder Urine culture -E coli /Pseudomonas -multi Drug resistant ABx adjusted to Imipenem -per sensitivity HX OF Paroxysmal A. Fib rate controlled with sotalol Sotalol on hold for NPO status /post op can be resumed via NG tube when OK by surgery to PO intake IV Lopressor 5 mg q 6 hrs Coumadin on hold for possible colon surgery INR reversed with Vit K ( 2 mg PO vit K given on 09/30/16 ) will be resumed when acceptable bleeding risk post op -will D/w Surgery ACUTE CHF WITH DIASTOLIC FAILURE : echo 08/13/16 showed EF 60-65% with mild LVH cont IV Lasix Diuresis due to worsening of pulmonary congestion /respiratory status continue Mechanical ventilation with ICU monitoring getting IV Lasix intermittently ordered for 20 mg I V Lasix after 1 unit of PRBC tx resumed out pt scheduled Lasix 20 mg Daily Zaroxolyn 5 mg PO X2 week resumed follow vol status appreciate input form Critical care ACUTE KIDNEY INJURY /CKD STAGE 3 : due to bowel surgery /vol shift started on IV Fluids for low urine out put cr improved to baseline with IV IVF D/brianna for vol overload Lasix to be given post PRBC tx monitor PRP daily DM2 insulin sliding scale DVT ppx high risk paraplegic ordered for Sub q Heparin Coumadin will be resumed when acceptation bleeding risk post op-will D/w surgery DNR ok for mechanical ventilation brittany and post operatively for recovery /pulmonary support D/w PO cousin Mr Darius Gould DISPOSITION : cousin POA Mr Darius Krishnamurthyr updated pt will remain in ICU with Mechanical ventilation for respiratory support resident at [facility] return to [facility] when medically stable Social service consulted for discharge planning Contact WALLACE Gould -Cousin contact number [phone]. Vital Signs: Date Time Temp Pulse Resp B/P Pulse Ox O2 Delivery O2 Flow Rate FiO2 10/05/16 12:07 84 135/72 10/05/16 12:00 35 10/05/16 12:00 CPAP 35 Mechanical Ventilator 10/05/16 11:50 36.9 83 18 135/72 95 10/05/16 11:00 36.7 78 14 112/84 96 10/05/16 10:30 36.6 77 14 106/60 92 10/05/16 10:00 36.8 81 17 119/73 95 10/05/16 09:45 37.1 85 15 119/74 96 10/05/16 09:32 37.0 85 10 121/86 98 10/05/16 09:00 37.0 85 15 128/69 98 Mechanical Ventilator 35 10/05/16 08:00 35 10/05/16 08:00 Mechanical Ventilator 35 10/05/16 07:22 35 10/05/16 07:00 72 14 127/70 93 Mechanical Ventilator 35 10/05/16 06:00 14 108/61 95 Mechanical Ventilator 35 10/05/16 05:12 35 10/05/16 05:00 26 145/64 87 10/05/16 05:00 26 145/64 87 Mechanical Ventilator 35 10/05/16 04:05 93 Mechanical Ventilator 40 10/05/16 04:05 60 10/05/16 04:00 36.9 110/67 Mechanical Ventilator 35 10/05/16 03:00 12 134/66 91 Mechanical Ventilator 35 10/05/16 02:18 35 10/05/16 02:00 15 108/73 100 Mechanical Ventilator 35 10/05/16 01:00 16 100/67 92 Mechanical Ventilator 40 10/05/16 00:24 93 Mechanical Ventilator 40 10/05/16 00:24 60 10/05/16 00:00 14 101/55 95 Mechanical Ventilator 40 10/04/16 23:23 40 10/04/16 23:00 8 114/61 100 Mechanical Ventilator 40 10/04/16 22:00 13 115/62 100 Mechanical Ventilator 40 10/04/16 21:00 0 114/61 100 Mechanical Ventilator 40 10/04/16 20:27 40 10/04/16 20:20 93 Mechanical Ventilator 60 10/04/16 20:20 60 10/04/16 20:00 36.8 18 127/69 Mechanical Ventilator 40 10/04/16 19:00 15 130/75 Mechanical Ventilator 60 10/04/16 18:00 15 110/65 82 Mechanical Ventilator 40 132/71 10/04/16 18:00 50 10/04/16 17:00 22 135/72 92 10/04/16 16:15 93 CPAP 40 Mechanical Ventilator 10/04/16 16:15 40 10/04/16 16:00 36.9 79 20 124/67 94 129/71 10/04/16 15:00 78 18 127/70 94 78 10/04/16 14:05 50 10/04/16 14:00 78 21 116/63 95 CPAP 40 78 114/63 Mechanical Ventilator 78 Lab Results: Results Past 24 Hours Test 10/04/16 17:00 10/04/16 21:16 10/04/16 22:20 10/05/16 05:03 Range/Units Bedside Glucose 153 132 70-99 mg/dl Urine Color YELLOW Urine Appearance CLEAR CLEAR Urine pH 6.0 4.5-7.5 Urine Specific [place] 1.010 1.000-1.030 Urine Protein NEG NEG Urine Glucose (UA) NEG NEG Urine Ketones TRACE NEG Urine Occult Blood NEG NEG Urine Nitrite NEG NEG Urine Bilirubin NEG NEG Urine Urobilinogen NEG NEG Urine Leukocyte Esterase TRACE NEG Urine WBC (Auto) 1-5 0-5 /hpf Urine RBC (Auto) 0-4 0-4 /hpf Urine Hyaline Casts (Auto) 1-5 0-5 /lpf Urine Epithelial Cells (Auto) 0-5 0-5 /lpf Urine Bacteria (Auto) NEG NEG White Blood Count 9.07 4.8-10.8 K/uL Red Blood Count 2.97 4.7-6.1 M/uL Hemoglobin 7.7 14.0-18.0 g/dL Hematocrit 25.2 42-52 % Mean Corpuscular Volume 84.8 80-100 fL Mean Corpuscular Hemoglobin 25.9 25-34 pg Mean Corpuscular Hemoglobin Concent 30.6 32-36 g/dl RDW Standard Deviation 57.0 36.4-46.3 fL RDW Coefficient of Variation 18.2 11.5-14.5 % Platelet Count 248 130-400 K/uL Mean Platelet Volume 9.1 7.4-10.4 fL Prothrombin Time 11.3 9.0-12.0 SECONDS Prothromb Time International Ratio 1.1 0.9-1.1 Sodium Level 139 136-145 mmol/L Potassium Level 3.2 3.5-5.1 mmol/L Chloride Level 98 98-107 mmol/L Carbon Dioxide Level 31 21-32 mmol/L Anion Gap 10.0 3-11 mmol/L Blood Urea Nitrogen 12 7-18 mg/dl Creatinine 1.20 0.60-1.40 mg/dl Est Creatinine Clear Calc Drug Dose 62.1 ml/min Estimated GFR () 68.6 Estimated GFR (Non- 59.2 BUN/Creatinine Ratio 9.7 10-20 Random Glucose 119 70-99 mg/dl Calcium Level 7.8 8.5-10.1 mg/dl Phosphorus Level 2.2 2.5-4.9 mg/dl Magnesium Level 1.7 1.8-2.4 mg/dl Test 10/05/16 06:47 10/05/16 08:12 10/05/16 11:51 Range/Units Bedside Glucose 122 147 70-99 mg/dl Blood Gas Sample Site Art Line Bedside Blood Gas pH (LAB) 7.41 7.35-7.45 Bedside Blood Gas pCO2 (LAB) 49 35-46 mmHg Bedside Blood Gas pO2 (LAB) 65 80-95 mmHg Bedside Blood Gas HCO3 (LAB) 31 19-24 meq/L Bedside Blood Gas Total CO2 33 24-31 mEq/l Bedside Blood Gas Base Excess (LAB) 7.0 -9-1.8 meq/L Bedside Blood Gas O2 Saturation 92.0 90-95 % Junior Test NA Oxygen Delivery Device Ventilator Bedside Oxygen Rate (breaths/min) 14 Blood Gas Minute Ventilation 7.5 Bedside FiO2 35 % Blood Gas Tidal Volume 500 Blood Gas PEEP 5 Microbiology Results 10/04/16 Urine Culture, Received Pending
[2016-10-05] MEDS: LANOLIN/PETROLATUM 30 GM TUBE EXT SCH ×4 (09:46→20:40)
[2016-10-05] MEDS ORDERED: FUROSEMIDE INJ 20 MG in SYRINGE 0 ML IV SCH (10:00)
[2016-10-05] MEDS ORDERED: POTASSIUM CHLR 10 MEQ / WTR 10 MEQ in PREMIXED WATER 100 ML IV SCH (10:00)
[2016-10-05] MEDS ORDERED: MAGNESIUM SULFATE 1GM / D5W 1 GM in PREMIXED IN D5W 100 ML IV SCH (10:00)
[2016-10-05] MEDS ORDERED: POTASSIUM PHOSPHATE INJ 9 MMOL in SODIUM CHLORIDE 0.9% 250ML 250 ML IV SCH (11:00)
[2016-10-05] MEDS: PANTOprazole INJ 40 MG in SYRINGE 0 ML IV SCH (11:08)
[2016-10-05] MEDS: POTASSIUM CHLR 20 MEQ / WTR 20 MEQ in PREMIXED WATER 100 ML IV SCH ×5 (11:08→23:03)
--- NOTE | 2016-10-05 11:16 | Surgery Progress Note ---
Surgery Progress Note Date of Service Oct 05, 2016. Subjective Post OP Day: 2 sedated, intubated Objective Vital Signs: Date Time Temp Pulse Resp B/P Pulse Ox O2 Delivery O2 Flow Rate FiO2 10/05/16 11:00 36.7 78 14 112/84 96 10/05/16 10:30 36.6 77 14 106/60 92 10/05/16 10:00 36.8 81 17 119/73 95 10/05/16 09:45 37.1 85 15 119/74 96 10/05/16 09:32 37.0 85 10 121/86 98 10/05/16 09:00 37.0 85 15 128/69 98 Mechanical Ventilator 35 10/05/16 08:00 35 10/05/16 08:00 Mechanical Ventilator 35 10/05/16 07:22 35 10/05/16 07:00 72 14 127/70 93 Mechanical Ventilator 35 10/05/16 06:00 14 108/61 95 Mechanical Ventilator 35 10/05/16 05:12 35 10/05/16 05:00 26 145/64 87 10/05/16 05:00 26 145/64 87 Mechanical Ventilator 35 10/05/16 04:05 93 Mechanical Ventilator 40 10/05/16 04:05 60 10/05/16 04:00 36.9 110/67 Mechanical Ventilator 35 10/05/16 03:00 12 134/66 91 Mechanical Ventilator 35 10/05/16 02:18 35 10/05/16 02:00 15 108/73 100 Mechanical Ventilator 35 10/05/16 01:00 16 100/67 92 Mechanical Ventilator 40 10/05/16 00:24 93 Mechanical Ventilator 40 10/05/16 00:24 60 10/05/16 00:00 14 101/55 95 Mechanical Ventilator 40 10/04/16 23:23 40 10/04/16 23:00 8 114/61 100 Mechanical Ventilator 40 10/04/16 22:00 13 115/62 100 Mechanical Ventilator 40 10/04/16 21:00 0 114/61 100 Mechanical Ventilator 40 10/04/16 20:27 40 10/04/16 20:20 93 Mechanical Ventilator 60 10/04/16 20:20 60 10/04/16 20:00 36.8 18 127/69 Mechanical Ventilator 40 10/04/16 19:00 15 130/75 Mechanical Ventilator 60 10/04/16 18:00 15 110/65 82 Mechanical Ventilator 40 132/71 10/04/16 18:00 50 10/04/16 17:00 22 135/72 92 10/04/16 16:15 93 CPAP 40 Mechanical Ventilator 10/04/16 16:15 40 10/04/16 16:00 36.9 79 20 124/67 94 129/71 10/04/16 15:00 78 18 127/70 94 78 10/04/16 14:05 50 10/04/16 14:00 78 21 116/63 95 CPAP 40 78 114/63 Mechanical Ventilator 78 10/04/16 12:07 79 127/65 10/04/16 12:00 40 10/04/16 12:00 Mechanical Ventilator 30 10/04/16 12:00 78 20 116/63 94 CPAP 40 78 Mechanical Ventilator 78 10/04/16 11:30 50 General Appearance: WD/WN, no apparent distress Head: normocephalic, atraumatic Neck: supple, trachea midline Respiratory/Chest: chest non-tender, + decreased breath sounds, + crackles Cardiovascular: regular rate, rhythm Abdomen: soft, + distended, + tenderness (mild), + pertinent finding (ostomy OK ; no flatus) Incision(s): clean, dry, intact Extremities: non-tender, + pedal edema Laboratory Results: Results Past 24 Hours Test 10/04/16 12:13 10/04/16 17:00 10/04/16 21:16 10/04/16 22:20 Range/Units Bedside Glucose 137 153 132 70-99 mg/dl Urine Color YELLOW Urine Appearance CLEAR CLEAR Urine pH 6.0 4.5-7.5 Urine Specific [place] 1.010 1.000-1.030 Urine Protein NEG NEG Urine Glucose (UA) NEG NEG Urine Ketones TRACE NEG Urine Occult Blood NEG NEG Urine Nitrite NEG NEG Urine Bilirubin NEG NEG Urine Urobilinogen NEG NEG Urine Leukocyte Esterase TRACE NEG Urine WBC (Auto) 1-5 0-5 /hpf Urine RBC (Auto) 0-4 0-4 /hpf Urine Hyaline Casts (Auto) 1-5 0-5 /lpf Urine Epithelial Cells (Auto) 0-5 0-5 /lpf Urine Bacteria (Auto) NEG NEG Test 10/05/16 05:03 10/05/16 06:47 3/26/17 08:12 Range/Units White Blood Count 9.07 4.8-10.8 K/uL Red Blood Count 2.97 4.7-6.1 M/uL Hemoglobin 7.7 14.0-18.0 g/dL Hematocrit 25.2 42-52 % Mean Corpuscular Volume 84.8 80-100 fL Mean Corpuscular Hemoglobin 25.9 25-34 pg Mean Corpuscular Hemoglobin Concent 30.6 32-36 g/dl RDW Standard Deviation 57.0 36.4-46.3 fL RDW Coefficient of Variation 18.2 11.5-14.5 % Platelet Count 248 130-400 K/uL Mean Platelet Volume 9.1 7.4-10.4 fL Prothrombin Time 11.3 9.0-12.0 SECONDS Prothromb Time International Ratio 1.1 0.9-1.1 Sodium Level 139 136-145 mmol/L Potassium Level 3.2 3.5-5.1 mmol/L Chloride Level 98 98-107 mmol/L Carbon Dioxide Level 31 21-32 mmol/L Anion Gap 10.0 3-11 mmol/L Blood Urea Nitrogen 12 7-18 mg/dl Creatinine 1.20 0.60-1.40 mg/dl Est Creatinine Clear Calc Drug Dose 62.1 ml/min Estimated GFR () 68.6 Estimated GFR (Non- 59.2 BUN/Creatinine Ratio 9.7 10-20 Random Glucose 119 70-99 mg/dl Calcium Level 7.8 8.5-10.1 mg/dl Phosphorus Level 2.2 2.5-4.9 mg/dl Magnesium Level 1.7 1.8-2.4 mg/dl Bedside Glucose 122 70-99 mg/dl Blood Gas Sample Site Art Line Bedside Blood Gas pH (LAB) 7.41 7.35-7.45 Bedside Blood Gas pCO2 (LAB) 49 35-46 mmHg Bedside Blood Gas pO2 (LAB) 65 80-95 mmHg Bedside Blood Gas HCO3 (LAB) 31 19-24 meq/L Bedside Blood Gas Total CO2 33 24-31 mEq/l Bedside Blood Gas Base Excess (LAB) 7.0 -9-1.8 meq/L Bedside Blood Gas O2 Saturation 92.0 90-95 % Junior Test NA Oxygen Delivery Device Ventilator Bedside Oxygen Rate (breaths/min) 14 Blood Gas Minute Ventilation 7.5 Bedside FiO2 35 % Blood Gas Tidal Volume 500 Blood Gas PEEP 5 Microbiology Results 10/04/16 Urine Culture, Received Pending Assessment & Plan s/p open sigmoid resection and colostomy -weaning vent -ngt out if extubated -npo some drainage from ostomy
[2016-10-05] MEDS ORDERED: NURSING VERBAL MED ORDER ONE ×2 (11:30→12:30)
[2016-10-05] MEDS ORDERED: FUROSEMIDE 40 MG/4 ML VIAL ONE (12:01)
[2016-10-05] MEDS: HEPARIN SOD 5000 UNIT/0.5 ML CARP SQ SCH ×2 (15:00→21:36)
[2016-10-05 16:26] LABS: HEMATOCRIT 28.7 % (42-52)
[2016-10-05 16:48] LABS: BUN/CREATININE RATIO 9.6 (10-20); CALCIUM 8.4 mg/dl (8.5-10.1); CREATININE 1.1 mg/dl (0.60-1.40); MAGNESIUM 1.8 mg/dl (1.8-2.4); PHOSPHORUS 2.4 mg/dl (2.5-4.9); POTASSIUM 3.4 mmol/L (3.5-5.1)
[2016-10-05] MEDS ORDERED: MAGNESIUM SULFATE 1GM / D5W 1 GM in PREMIXED IN D5W 100 ML IV ONE (19:00)
[2016-10-05] MEDS ORDERED: POTASSIUM PHOSPHATE INJ 15 MMOL in SODIUM CHLORIDE 0.9% 250ML 250 ML IV SCH (19:00)
--- NOTE | 2016-10-05 19:50 | CRITICAL CARE PROGRESS NOTE ---
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 I saw the patient this morning when he was on the ventilator. He seemed to indicate he was having back pain. He is not having any significant output from his colostomy. He was placed on CPAP 12/5 and eventually CPAP 5/5 and extubated this afternoon. He was not having any significant endotracheal tube secretions. He had 1 unit of packed red blood cells today. OBJECTIVE: VITAL SIGNS: Maximum temperature 37.1, heart rate 70s, respiratory rate 16-22, blood pressure 106-112/60s-70s, oxygen saturation 96s %, 24-hour fluid balance positive 850 mL. GENERAL: He was awake and would follow commands weakly with the upper extremities. LUNGS: Had bibasilar rales, no rhonchi or wheezes. HEART: Regular rate and rhythm. ABDOMEN: Obese, round, firm and appropriately tender. Midline incision dressing is clean, dry and intact. Some dark brown output in the ostomy bag. The ostomy itself is dark red. LABORATORY DATA: White blood cell count 9.07, hemoglobin 7.7, hematocrit 25.2 and platelets 248. Sodium 139, potassium 3.2, chloride 98, CO2 31, BUN 12, creatinine 1.2, calcium 7.8, phosphorus 2.2, magnesium 1.7. PT, PTT and INR are within normal limits. Portable chest x-ray from this morning was reviewed and shows some pulmonary vascular congestion without overt edema. Bibasilar opacities, which I believe are likely secondary to atelectasis. MICROBIOLOGY DATA: Reviewed. MEDICATIONS: Acetaminophen, chlorhexidine, Lasix, subcutaneous heparin, Dilaudid, imipenem day 4, insulin sliding scale, Xopenex, Atrovent, Zaroxolyn, Lopressor, Eucerin, Zofran, Protonix, potassium phosphate, promethazine and [place] nasal spray. IMPRESSION: 1. Postoperative day #2 status post exploratory laparotomy and sigmoid colectomy secondary to recurrent volvulus, doing well from a surgical standpoint and awaiting return of bowel function. 2. Acute hypoxemic respiratory failure, now extubated. He probably has an element of obesity hypoventilation syndrome and is prone to atelectasis secondary to his body habitus and his paraplegia. I have ordered BIPAP to be worn bedtime and as needed. Diuresis is ongoing. 3. Metabolic encephalopathy, improved. 4. Escherichia coli and pseudomonas urinary tract infection, on imipenem. I believe his antibiotics were broadened when he had worsening of his mental status the day prior to surgery. 5. Left lower extremity cellulitis, treated during this admission. 6. History of atrial fibrillation and use of Coumadin as an outpatient. He continues in normal sinus rhythm and is not on his sotalol or systemic anticoagulation. 7. History of neurogenic bladder and urinary tract infection. 8. History of paraplegia. 9. Postoperative anemia, status post 1 unit packed red blood cells today. 10. History of diastolic dysfunction. 11. Chronic indwelling [place]. PLAN: NEUROLOGIC: He may benefit from resuming his baclofen when he is able to take medications orally. Judicious use of narcotics for pain. PULMONARY: BiPAP 15/5 nightly and at bedtime. Bronchodilators, diuresis and mobilization. CARDIOVASCULAR: Continue IV Lopressor. Consider amiodarone if he were to go into atrial fibrillation. At that point, I would recommend heparin infusion. GASTROINTESTINAL: The NG tube was discontinued. Continue proton pump inhibitor. Change to the enteral form soon. RENAL: Attempt diuresis. He already has metabolic alkalosis. He might benefit from albumin with a Lasix chaser. HEMATOLOGY: Resume Coumadin soon. INFECTIOUS DISEASE: He has had 7 days of antibiotics. He was on Zosyn between September 28 and October 01. He was changed to ceftriaxone on October 01 for a day and then was placed on imipenem on October 02. The ceftriaxone and imipenem definitely cover both organisms. Discontinue imipenem after a total of 7 days between the two antibiotics. Critical care time, 40 minutes.
[2016-10-05] MEDS: EUCERIN CR 120 GM JAR EXT SCH (20:19)
[2016-10-05] MEDS: IPRATROPIUM BROMIDE NEB SOLN 0.02% 2.5 ML VIAL INH SCH (20:49)
[2016-10-05] MEDS: LEVALBUTEROL 1.25MG/0.5ML NEB INH SCH (20:49)
[2016-10-06] VITALS (14 sets, daily range): BP systolic 118–144; BP diastolic 70–87; PULSE 77–105; TEMP 36.9–37.3; O2SAT 93–100
[2016-10-06] MEDS: HYDROmorphone INJ 0.5 MG/0.5 ML SYR IV PRN ×6 (00:16→21:16)
[2016-10-06] MEDS: LEVALBUTEROL 1.25MG/0.5ML NEB INH SCH ×4 (02:20→19:17)
[2016-10-06] MEDS: IPRATROPIUM BROMIDE NEB SOLN 0.02% 2.5 ML VIAL INH SCH ×4 (02:20→19:17)
[2016-10-06] MEDS: HEPARIN SOD 5000 UNIT/0.5 ML CARP SQ SCH ×3 (05:38→21:15)
[2016-10-06] MEDS: METOPROLOL TARTRATE 1 MG/ML VIAL IV. SCH (05:41)
[2016-10-06] MEDS: IMIPENEM/CILASTATIN IV 500 MG in D5W 100ML IV SCH ×4 (05:41→23:40)
[2016-10-06] MEDS: INSULIN ASPART 100 UNITS/ML 3 ML PEN SC SCH ×4 (06:00→21:00)
[2016-10-06 06:02] LABS: BASO % 0.4 %; BASO ABS # 0.04 K/uL (0-0.2); HEMATOCRIT 28.4 % (42-52); IG% 2.6 %; LYMPH % 10.6 %; LYMPH ABS # 0.95 K/uL (1.2-3.4); MEAN CELL VOLUME 84.3 fL (80-100); MEAN CORPUSCULAR HEMOGLOBIN 26.4 pg (25-34); MEAN CORPUSCULAR HGB CONC 31.3 g/dl (32-36); MEAN PLATELET VOLUME 8.8 fL (7.4-10.4); MONO % 8.4 %; PLATELET COUNT 250 K/uL (130-400); RED BLOOD COUNT 3.37 M/uL (4.7-6.1); WHITE BLOOD COUNT 8.95 K/uL (4.8-10.8)
[2016-10-06 06:37] LABS: BUN/CREATININE RATIO 9.3 (10-20); CALCIUM 8.2 mg/dl (8.5-10.1); COMPLETE YES; MAGNESIUM 2.1 mg/dl (1.8-2.4); POTASSIUM 3.6 mmol/L (3.5-5.1)
[2016-10-06 06:38] LABS: PHOSPHORUS 2.8 mg/dl (2.5-4.9)
--- NOTE | 2016-10-06 07:37 | DIAGNOSTIC IMAGING REPORT ---
SINGLE VIEW CHEST CLINICAL HISTORY: Respiratory failure. FINDINGS: An AP, portable, upright chest radiograph is compared to study dated 10/05/2016. The examination is significantly degraded by portable technique, large body habitus, and patient rotation. Endotracheal and enteric tubes have been removed. A left PICC line is unchanged in position. The heart is enlarged and there is atherosclerotic calcification of the thoracic aorta. There is mild pulmonary vascular congestion. There are low lung volumes. Pleural effusions are identified with bibasilar consolidation. No pneumothorax is seen. The skeletal structures are osteopenic. Advanced arthritic change is seen in the shoulders. IMPRESSION: 1. Endotracheal and enteric tubes have been removed. 2. Cardiomegaly with mild pulmonary vascular congestion. 3. Low lung volumes. 4. Pleural effusions with bibasilar consolidation, similar to previous. Electronically signed by: Juan Garcia M.D. 10/06/2016 7:36 AM Dictated Date/Time: 10/06/2016 7:34 AM
[2016-10-06] MEDS: PANTOprazole INJ 40 MG in SYRINGE 0 ML IV SCH (08:33)
[2016-10-06] MEDS: LANOLIN/PETROLATUM 30 GM TUBE EXT SCH ×4 (08:34→21:05)
[2016-10-06] MEDS ORDERED: FUROSEMIDE INJ 20 MG in SYRINGE 0 ML IV SCH (09:00)
[2016-10-06] MEDS ORDERED: FUROSEMIDE INJ 40 MG in SYRINGE 0 ML IV SCH (09:00)
[2016-10-06] MEDS ORDERED: POTASSIUM CHLORIDE 20 MEQ/15 ML UDC PO ONE (09:15)
--- NOTE | 2016-10-06 09:15 | Progress Note ---
Internal Med Progress Note Date of Service: Oct 06, 2016. Provider Documentation: SUBJECTIVE: extubated yesterday now on room air , speaking spontaneously asking for food no complain of chest pain or SOB no abdominal discomfort colostomy draining dark liquid stool evaluated by Surgery Dr Garcia at bedside OK to start on clear liquid diet stable to be transferred out of ICU OBJECTIVE: Vital Signs-as noted below Exam: General-awake and alert , conversing , asking for food , says feels very hungry Eyes-sclera non icteric, ENT-dry oral mucosa Lungs-diminished air entry , no rales or wheeze auscultated Heart-regular Abdomen-, soft, left lower quadrant colostomy intact , dark liquid stool in bag , Extremities--improved redness on rt lower leg /no warmth or tenderness / chronic venous stasis change on left lower leg , + 2-3 pedal edema , un stageable sacral wound on both buttock and sacral area Neuro-awake and alert , oriented to place and person , conversing appropriately , paraplegic at baseline Lab data as noted below. ASSESSMENT & PLAN: ACUTE RESPIRATORY FAILURE : resolved multifactorial -acute CHF with diastolic dysfunction /underlying severe ANDREW / hypoventilation syndrome /basilar lung atelectasis due to recent bowel surgery required mechanical ventilation post procedure extubated yesterday afternoon has been doing well , was transitioned to 2l 02 via nasal canula this AM on room air Cxray : 10/06/16 1. Endotracheal and enteric tubes have been removed. 2. Cardiomegaly with mild pulmonary vascular congestion. 3. Low lung volumes. 4. Pleural effusions with bibasilar consolidation, similar to previous. -continue incentive spirometry -repeat Cxray in AM PRN For SOB or concern for vol overload -Bipap at night and PRN ( needs to be on Biapap at night and PRN for wheeze / SOB /Lethargy -hx of ANDREW /multiple times pt was found to be lethargic in AM due to Co2 retention ) -Biapap at HS 15/5 will need to be continued on discharge to SNF/NH as well RECURRENT Sigmoid Volvulus/S/P SIGMOID COLECTOMY WITH COLOSTOMY PLACEMENT recovering well post op last admission in July 2016 with Sigmoid volvulus -had colonoscopic decompression pt refused surgery at that time this admission presented again from [facility] with altered mental status and abdominal distention Abdominal CT shows recurrent Sigmoid volvulus appreciate GI input and management, s/p Colonoscopic decompression followed by sigmoid colon tube placement serial KUB -shows no significant bowel dilatation , colonic tube in sigmoid colon surgery has been consulted-appreciate input -s/p Surgical resection of Sigmoid colon by Dr Garcia on Thursday10/03/16 POD # 3 had Colostomy placed required ICU on mechanical ventilation post op colostomy has been having dark liquid stool out out stool for C diff -negative surgery following -appreciate input pt will be started on Clear liquid diet stable to be transferred to PCU will D/w Surgery when to resume Coumadin for chronic anticoagulation ( Chronic Afib ) ACUTE BLOOD LOSS ANEMIA : due to above-post surgical status given 1 unit of PRBC tx post op on 10/03/16 HB dropped to 7.7 no active bleeding episodes noted , dark liquid in colostomy bag ordered for 1 unit of PRBC to be transfusion on 10/06/16 20 mg IV given Lasix afterwards ( pt has robin vol overload ) H&H 8.9/28.9 today monitor ordered stool for heme occult RT Lower ext cellulitis : resolved on Imipenem Day # 5 COMPLICATED UTI : with microorganism with MDR due to chronic indwelling catheter in setting of Neurogenic bladder Urine culture -E coli /Pseudomonas -multi Drug resistant ABx adjusted to Imipenem -per sensitivity DAY # 5 MICROBIOLOGY : BLOOD culture : 09/28/16 -no growth stool C diff assay -negative MRSA nasal probe + ve Urine culture on 09/28/16 E.COLI Pseudomonas -multidrug resistance on Imipenem per sensitivity ; ist day of tx 10/02/16 Day # 5 will need total 10 days of treatment repeat Urine culture ordered on 10/04/16 -report pending Sacral wound/STAGE II PRESSURE ULCER : present on admission evaluated with wound care nurse buttock wound appear to be hard and boggy need to R/o abscess /underlying fluid collection wound care Dr Julian Cam consulted-appreciate input Stage II pressure ulcer right thigh region. recommends : dressing with Aquacel Ag and Optifoam, change daily or as needed based upon soiling. pt will be continue to be followed by wound Care while in Hospital and will need out pat wound clinic follow up on discharge HX OF Paroxysmal A. Fib rate controlled with sotalol Sotalol resumed today IV Lopressor 5 mg q 6 hrs PRN for HR > 100 Coumadin was on hold for possible colon surgery INR reversed with Vit K ( 2 mg PO vit K given on 09/30/16 ) Coumadin resumed starting form tomorrow D/w Surgery ACUTE CHF WITH DIASTOLIC FAILURE : echo 08/13/16 showed EF 60-65% with mild LVH given IV Lasix Diuresis due to worsening of pulmonary congestion /respiratory status needed Mechanical ventilation with ICU monitoring getting IV Lasix intermittently ordered for 20 mg I V Lasix after 1 unit of PRBC tx Zaroxolyn 5 mg PO X2 week resumed was on Lasix 40 mg IV Lasix with close monitoring of PRP changed to Lasix 40 mg PO daily follow vol status repeat Cxray in PRN basis for SOB /hypoxia appreciate input form Critical care ACUTE KIDNEY INJURY /CKD STAGE 3 : resolved, Cr at baseline monitor PRP daily DM2 insulin sliding scale Metformin on hold for acute illness /bowel surgery /NPO can be resumed on discharge DVT ppx high risk paraplegic on Sub q Heparin Coumadin will be resumed when acceptation bleeding risk post op-will D/w surgery DNR ok for mechanical ventilation brittany and post operatively for recovery /pulmonary support D/w PO cousin Mr Darius Gould DISPOSITION : transfer to PCU today resident at [facility] return to [facility] when medically stable Social service consulted for discharge planning cousin POA Mr Mccoy Liner updated Contact WALLACE Darius Liner -Cousin contact number [phone]. Vital Signs: Date Time Temp Pulse Resp B/P Pulse Ox O2 Delivery O2 Flow Rate FiO2 10/07/16 04:00 36.8 73 14 119/60 97 Nasal Cannula 2.0 10/07/16 04:00 93 Room Air 10/07/16 01:47 71 16 95 Nasal Cannula 2.0 10/06/16 23:59 93 Room Air 10/06/16 23:58 37.1 77 20 118/76 93 Room Air Mechanical Ventilator 10/06/16 20:00 37.2 84 18 132/78 95 Room Air 10/06/16 20:00 95 Room Air 10/06/16 19:17 83 16 95 Room Air 10/06/16 16:36 91 16 96 Room Air 10/06/16 16:13 37.3 80 22 144/87 96 Room Air 10/06/16 16:00 Room Air 10/06/16 12:43 36.9 105 20 119/76 93 Room Air 10/06/16 12:00 Room Air 10/06/16 08:08 37.0 89 20 132/70 94 Room Air 10/06/16 08:00 Room Air Lab Results: Results Past 24 Hours Test 10/06/16 11:29 10/06/16 15:56 10/06/16 20:05 10/07/16 05:47 Range/Units Bedside Glucose 150 106 136 70-99 mg/dl White Blood Count 7.68 4.8-10.8 K/uL Red Blood Count 3.54 4.7-6.1 M/uL Hemoglobin 9.4 14.0-18.0 g/dL Hematocrit 29.4 42-52 % Mean Corpuscular Volume 83.1 80-100 fL Mean Corpuscular Hemoglobin 26.6 25-34 pg Mean Corpuscular Hemoglobin Concent 32.0 32-36 g/dl RDW Standard Deviation 53.7 36.4-46.3 fL RDW Coefficient of Variation 17.8 11.5-14.5 % Platelet Count 275 130-400 K/uL Mean Platelet Volume 8.9 7.4-10.4 fL Nucleated RBC Absolute Count (auto) 0.02 0-0 K/uL Nucleated Red Blood Cells % 0.3 % Prothrombin Time 11.4 9.0-12.0 SECONDS Prothromb Time International Ratio 1.1 0.9-1.1 Sodium Level 136 136-145 mmol/L Potassium Level 3.2 3.5-5.1 mmol/L Chloride Level 94 98-107 mmol/L Carbon Dioxide Level 34 21-32 mmol/L Anion Gap 8.0 3-11 mmol/L Blood Urea Nitrogen 12 7-18 mg/dl Creatinine 1.10 0.60-1.40 mg/dl Est Creatinine Clear Calc Drug Dose 66.2 ml/min Estimated GFR () 76.2 Estimated GFR (Non- 65.8 BUN/Creatinine Ratio 10.6 10-20 Random Glucose 114 70-99 mg/dl Calcium Level 8.0 8.5-10.1 mg/dl Phosphorus Level 2.9 2.5-4.9 mg/dl Magnesium Level 1.9 1.8-2.4 mg/dl
[2016-10-06] MEDS ORDERED: NURSING VERBAL MED ORDER ONE (09:30)
--- NOTE | 2016-10-06 10:12 | Anesthesiology Progress Note ---
Anesthesia Post Op Note Date & Time Oct 06, 2016 at 10:12 Vital Signs Pain Intensity: 7.0 Vital Signs Past 12 Hours Date Time Temp Pulse Resp B/P Pulse Ox O2 Delivery O2 Flow Rate FiO2 10/06/16 08:08 37.0 89 20 132/70 94 Room Air 10/06/16 08:00 Room Air 10/06/16 07:20 77 16 100 Nasal Cannula 2.0 10/06/16 06:00 78 22 124/74 99 Nasal Cannula 2.0 10/06/16 05:41 92 151/74 10/06/16 04:00 37.2 91 22 127/71 98 Nasal Cannula 2.0 10/06/16 04:00 94 BiPAP 30 10/06/16 02:20 82 100 30 10/06/16 02:20 87 18 100 BiPAP/CPAP 30 10/06/16 02:00 88 21 127/71 100 BiPAP 30 10/06/16 00:01 37.2 90 20 122/80 100 Ambu-Bag 30 10/05/16 23:59 94 BiPAP 30 10/05/16 23:13 96 135/71 10/05/16 23:03 76 98 30 Notes Mental Status: alert / awake / arousable, participated in evaluation Pt Amnestic to Procedure: Yes Nausea / Vomiting: adequately controlled Pain: adequately controlled Airway Patency, RR, SpO2: stable & adequate BP & HR: stable & adequate Hydration State: stable & adequate Anesthetic Complications: no major complications apparent
[2016-10-06] MEDS: PREGABALIN 75 MG CAP PO SCH ×2 (11:36→20:01)
--- NOTE | 2016-10-06 11:49 | Surgery Progress Note ---
Surgery Progress Note Date of Service Oct 06, 2016. Subjective Post OP Day: 3 + bowel movement (colostoy), + diet (tolerating clear liquids), + feeling well, + flatus, No nausea, No vomiting Awake, alert, answering questions appropriately Objective Vital Signs: Date Time Temp Pulse Resp B/P Pulse Ox O2 Delivery O2 Flow Rate FiO2 10/06/16 08:08 37.0 89 20 132/70 94 Room Air 10/06/16 08:00 Room Air 10/06/16 07:20 77 16 100 Nasal Cannula 2.0 10/06/16 06:00 78 22 124/74 99 Nasal Cannula 2.0 10/06/16 05:41 92 151/74 10/06/16 04:00 37.2 91 22 127/71 98 Nasal Cannula 2.0 10/06/16 04:00 94 BiPAP 30 10/06/16 02:20 82 100 30 10/06/16 02:20 87 18 100 BiPAP/CPAP 30 10/06/16 02:00 88 21 127/71 100 BiPAP 30 10/06/16 00:01 37.2 90 20 122/80 100 Ambu-Bag 30 10/05/16 23:59 94 BiPAP 30 10/05/16 23:13 96 135/71 10/05/16 23:03 76 98 30 10/05/16 22:00 92 19 117/69 99 Nasal Cannula 2.0 10/05/16 21:01 89 18 99 Nasal Cannula 2.0 10/05/16 20:00 94 Nasal Cannula 2.0 10/05/16 20:00 37.2 94 22 126/72 95 Nasal Cannula 2.0 10/05/16 18:00 81 20 114/71 94 Nasal Cannula 2.0 10/05/16 17:58 96 127/71 10/05/16 17:00 90 18 121/71 98 Nasal Cannula 2.0 10/05/16 16:25 36.9 91 23 132/81 93 Nasal Cannula 4.0 10/05/16 16:15 89 20 134/68 94 Nasal Cannula 4.0 10/05/16 16:00 Nasal Cannula 4.0 10/05/16 15:00 88 21 131/83 96 Nasal Cannula 4.0 10/05/16 13:45 35 10/05/16 13:00 87 16 132/73 96 CPAP 35 Mechanical Ventilator 10/05/16 12:45 35 10/05/16 12:07 84 135/72 10/05/16 12:00 35 10/05/16 12:00 CPAP 35 Mechanical Ventilator 10/05/16 11:50 36.9 83 18 135/72 95 Abdomen: normal bowel sounds, soft, + distended (mild), + pertinent finding ( ostomy functioning) Incision(s): clean, dry, intact, no erythema Laboratory Results: Results Past 24 Hours Test 10/05/16 11:51 10/05/16 16:18 10/05/16 17:48 10/05/16 23:18 Range/Units Bedside Glucose 147 110 100 70-99 mg/dl Hemoglobin 9.3 14.0-18.0 g/dL Hematocrit 28.7 42-52 % Sodium Level 139 136-145 mmol/L Potassium Level 3.4 3.5-5.1 mmol/L Chloride Level 97 98-107 mmol/L Carbon Dioxide Level 34 21-32 mmol/L Anion Gap 8.0 3-11 mmol/L Blood Urea Nitrogen 11 7-18 mg/dl Creatinine 1.10 0.60-1.40 mg/dl Est Creatinine Clear Calc Drug Dose 67.6 ml/min Estimated GFR () 76.2 Estimated GFR (Non- 65.8 BUN/Creatinine Ratio 9.6 10-20 Random Glucose 124 70-99 mg/dl Calcium Level 8.4 8.5-10.1 mg/dl Phosphorus Level 2.4 2.5-4.9 mg/dl Magnesium Level 1.8 1.8-2.4 mg/dl Test 10/06/16 05:47 10/06/16 11:29 Range/Units White Blood Count 8.95 4.8-10.8 K/uL Red Blood Count 3.37 4.7-6.1 M/uL Hemoglobin 8.9 14.0-18.0 g/dL Hematocrit 28.4 42-52 % Mean Corpuscular Volume 84.3 80-100 fL Mean Corpuscular Hemoglobin 26.4 25-34 pg Mean Corpuscular Hemoglobin Concent 31.3 32-36 g/dl Platelet Count 250 130-400 K/uL Mean Platelet Volume 8.8 7.4-10.4 fL Neutrophils (%) (Auto) 75.0 % Lymphocytes (%) (Auto) 10.6 % Monocytes (%) (Auto) 8.4 % Eosinophils (%) (Auto) 3.0 % Basophils (%) (Auto) 0.4 % Neutrophils # (Auto) 6.71 1.4-6.5 K/uL Lymphocytes # (Auto) 0.95 1.2-3.4 K/uL Monocytes # (Auto) 0.75 0.11-0.59 K/uL Eosinophils # (Auto) 0.27 0-0.5 K/uL Basophils # (Auto) 0.04 0-0.2 K/uL RDW Standard Deviation 54.6 36.4-46.3 fL RDW Coefficient of Variation 17.8 11.5-14.5 % Immature Granulocyte % (Auto) 2.6 % Immature Granulocyte # (Auto) 0.23 0.00-0.02 K/uL Red Blood Cell Morphology Unremarkable Sodium Level 140 136-145 mmol/L Potassium Level 3.6 3.5-5.1 mmol/L Chloride Level 99 98-107 mmol/L Carbon Dioxide Level 32 21-32 mmol/L Anion Gap 9.0 3-11 mmol/L Blood Urea Nitrogen 9 7-18 mg/dl Creatinine 1.00 0.60-1.40 mg/dl Est Creatinine Clear Calc Drug Dose 73.0 ml/min Estimated GFR () 85.6 Estimated GFR (Non- 73.8 BUN/Creatinine Ratio 9.3 10-20 Bedside Glucose 108 150 70-99 mg/dl Random Glucose 110 70-99 mg/dl Calcium Level 8.2 8.5-10.1 mg/dl Phosphorus Level 2.8 2.5-4.9 mg/dl Magnesium Level 2.1 1.8-2.4 mg/dl Assessment & Plan S/P sigmoid colectomy with formation of colostomy Bowel function has returned Tolerating clear liquids Can begin Coumadin tomorrow if H7H remains stable.
[2016-10-06] MEDS ORDERED: METOPROLOL TARTRATE 1 MG/ML VIAL IV PRN (12:00)
[2016-10-06] MEDS: SOTALOL HCL 80 MG TAB PO SCH ×2 (12:36→19:59)
[2016-10-06] MEDS: DICLOFENAC SOD 1% GEL 100 GM TUBE EXT SCH ×2 (14:32→19:59)
--- NOTE | 2016-10-06 16:01 | PULMONARY PROGRESS NOTE ---
DATE: 10/06/2016 TIME: 03:40 p.m. SUBJECTIVE: The patient denies shortness of breath. He denies cough. He is not the best historian, however. The one thing he is complaining about is pain in his legs, particularly the left leg. He was extubated yesterday apparently without difficulties. He has been stable today from a respiratory perspective. OBJECTIVE: GENERAL: The patient appears comfortable. His voice was a bit husky. VITAL SIGNS: Temperature is 36.9. NECK: He has a large neck. HEART: Rate is 84 per minute. The rhythm is regular. Blood pressure 119/76. LUNGS: Auscultation of the lung ramos revealed them to be clear bilaterally. No wheezing or rhonchi were heard. Respiratory rate was 20 breaths per minute. Saturation was 93% on room air. ABDOMEN: Obese. It appears distended. He does have bowel sounds. There is a colostomy on the left side. Catheter is in place. EXTREMITIES: The lower extremities show significant edema. There is some generalized discoloration. There are some areas of erythematous change. LABORATORY DATA: White count today was 8.95. Hemoglobin 8.9. Platelets 250,000. Blood gas yesterday showed a pH of 7.41 with a pCO2 of 49 and a pO2 of 65 done on the ventilator. Electrolytes show sodium 140, potassium 3.6, chloride 99 and bicarb 32. BUN was 9 with a creatinine of 1.0. Chest x-ray done today shows that the ET tube has been removed. There is cardiomegaly with mild pulmonary vascular congestion and low lung volumes. The volumes could be down due to the abdominal distention. Pleural effusions were suggested. IMPRESSIONS: 1. Sigmoid volvulus -- status post resection. 2. Respiratory failure -- chronic. 3. Obstructive sleep apnea. 4. Hypoventilatory changes on chest x-ray. 5. Anemia. COMMENTS AND RECOMMENDATIONS: The patient seems fairly stable. I would continue the nebulizer treatments every 6 hours as he has been receiving. I would continue with the incentive spirometry, although I am doubtful if the patient does it. He is very restless the nurses state that this is normal for him. He likely should have a followup blood gas since he was extubated. We will put that in for tomorrow morning.
[2016-10-06] MEDS: EUCERIN CR 120 GM JAR EXT SCH (19:57)
[2016-10-06] MEDS: AMITRIPTYLINE HCL 10 MG TAB PO SCH (19:59)
[2016-10-07] VITALS (12 sets, daily range): BP systolic 104–145; BP diastolic 60–82; PULSE 60–73; TEMP 36.4–36.8; O2SAT 85–100
[2016-10-07] MEDS: HYDROmorphone INJ 0.5 MG/0.5 ML SYR IV PRN ×2 (01:42→18:19)
[2016-10-07] MEDS: LEVALBUTEROL 1.25MG/0.5ML NEB INH SCH ×4 (01:47→20:58)
[2016-10-07] MEDS: IPRATROPIUM BROMIDE NEB SOLN 0.02% 2.5 ML VIAL INH SCH ×4 (01:47→20:58)
[2016-10-07] MEDS: IMIPENEM/CILASTATIN IV 500 MG in D5W 100ML IV SCH ×4 (05:49→23:32)
[2016-10-07] MEDS: HEPARIN SOD 5000 UNIT/0.5 ML CARP SQ SCH ×3 (05:50→21:52)
[2016-10-07 06:01] LABS: HEMATOCRIT 29.4 % (42-52); MEAN CELL VOLUME 83.1 fL (80-100); MEAN CORPUSCULAR HEMOGLOBIN 26.6 pg (25-34); MEAN PLATELET VOLUME 8.9 fL (7.4-10.4); PLATELET COUNT 275 K/uL (130-400); RED BLOOD COUNT 3.54 M/uL (4.7-6.1); WHITE BLOOD COUNT 7.68 K/uL (4.8-10.8)
[2016-10-07 06:24] LABS: BUN/CREATININE RATIO 10.6 (10-20); CREATININE 1.1 mg/dl (0.60-1.40); MAGNESIUM 1.9 mg/dl (1.8-2.4); PHOSPHORUS 2.9 mg/dl (2.5-4.9); POTASSIUM 3.2 mmol/L (3.5-5.1)
[2016-10-07 06:34] LABS: INR 1.1 (0.9-1.1); PROTHROMBIN TIME (PATIENT) 11.4 SECONDS (9.0-12.0)
[2016-10-07] MEDS: INSULIN ASPART 100 UNITS/ML 3 ML PEN SC SCH ×4 (06:38→21:00)
[2016-10-07] MEDS ORDERED: POTASSIUM CHLORIDE 10 MEQ TABCR PO STA (07:20)
[2016-10-07] MEDS: DICLOFENAC SOD 1% GEL 100 GM TUBE EXT SCH ×3 (08:23→21:28)
[2016-10-07] MEDS: LANOLIN/PETROLATUM 30 GM TUBE EXT SCH ×4 (08:23→21:55)
[2016-10-07] MEDS: ROSUVASTATIN CALCIUM 10 MG TAB PO SCH (08:24)
[2016-10-07] MEDS: AMITRIPTYLINE HCL 10 MG TAB PO SCH ×2 (08:24→21:28)
[2016-10-07] MEDS: SOTALOL HCL 80 MG TAB PO SCH ×2 (08:24→21:28)
[2016-10-07] MEDS: DULOXETINE HCL 60 MG CAP PO SCH (08:24)
[2016-10-07] MEDS: PANTOprazole SOD 40 MG TAB PO SCH (08:25)
[2016-10-07] MEDS: FUROSEMIDE 40 MG TAB PO SCH (08:25)
[2016-10-07] MEDS: ASPIRIN 81 MG CHEW PO SCH (08:26)
[2016-10-07] MEDS: PREGABALIN 75 MG CAP PO SCH ×2 (08:27→21:29)
[2016-10-07] MEDS ORDERED: METOLAZONE 2.5 MG TAB PO SCH (08:30)
[2016-10-07 08:55] LABS: ARTERIAL BLD GAS O2 SATURATION 87.1 % (90-95); ARTERIAL BLOOD GAS BASE EXCESS 7.4 mEq/L (-9-1.8); ARTERIAL BLOOD GAS HCO3 34 mmol/L (19-24); ARTERIAL BLOOD GAS PO2 58 mm/Hg (80-95)
[2016-10-07 08:57] LABS: ALLEN TEST POS (POS); O2 ADMINISTRATION 2 LITERS
--- NOTE | 2016-10-07 09:29 | Surgery Progress Note ---
Surgery Progress Note Date of Service Oct 07, 2016. Subjective Post OP Day: 4 (POD # 4 s/p exploratory lapartomy sigmoid resection with creation of colostomy and Hartmanns Pouch) + bowel movement (dark liquid stool and air in colostomy bag), + diet ( tolerating clear liquids), + flatus, No SOB (stated breathing feels better), No chest pain, No complaints, No nausea, No vomiting Objective Vital Signs: Date Time Temp Pulse Resp B/P Pulse Ox O2 Delivery O2 Flow Rate FiO2 10/07/16 07:00 70 12 98 Nasal Cannula 2.0 10/07/16 04:00 36.8 73 14 119/60 97 Nasal Cannula 2.0 10/07/16 04:00 93 Room Air 10/07/16 01:47 71 16 95 Nasal Cannula 2.0 10/06/16 23:59 93 Room Air 10/06/16 23:58 37.1 77 20 118/76 93 Room Air Mechanical Ventilator 10/06/16 20:00 37.2 84 18 132/78 95 Room Air 10/06/16 20:00 95 Room Air 10/06/16 19:17 83 16 95 Room Air 10/06/16 16:36 91 16 96 Room Air 10/06/16 16:13 37.3 80 22 144/87 96 Room Air 10/06/16 16:00 Room Air 10/06/16 12:43 36.9 105 20 119/76 93 Room Air 10/06/16 12:00 Room Air General Appearance: WD/WN, no apparent distress, + obese Head: normocephalic, atraumatic Neck: trachea midline Respiratory/Chest: no respiratory distress, no accessory muscle use, + decreased breath sounds, + crackles, + rales Cardiovascular: regular rate, rhythm, no murmur Abdomen: non tender, non distended, soft, + pertinent finding (ostomy slightly dusky with dark liquid stool and gas in colostomy bag, nontender on palpation) Incision(s): clean, dry, intact, no drainage, erythema Laboratory Results: Results Past 24 Hours Test 10/06/16 11:29 10/06/16 15:56 10/06/16 20:05 10/07/16 05:47 Range/Units Bedside Glucose 150 106 136 70-99 mg/dl White Blood Count 7.68 4.8-10.8 K/uL Red Blood Count 3.54 4.7-6.1 M/uL Hemoglobin 9.4 14.0-18.0 g/dL Hematocrit 29.4 42-52 % Mean Corpuscular Volume 83.1 80-100 fL Mean Corpuscular Hemoglobin 26.6 25-34 pg Mean Corpuscular Hemoglobin Concent 32.0 32-36 g/dl RDW Standard Deviation 53.7 36.4-46.3 fL RDW Coefficient of Variation 17.8 11.5-14.5 % Platelet Count 275 130-400 K/uL Mean Platelet Volume 8.9 7.4-10.4 fL Nucleated RBC Absolute Count (auto) 0.02 0-0 K/uL Nucleated Red Blood Cells % 0.3 % Prothrombin Time 11.4 9.0-12.0 SECONDS Prothromb Time International Ratio 1.1 0.9-1.1 Sodium Level 136 136-145 mmol/L Potassium Level 3.2 3.5-5.1 mmol/L Chloride Level 94 98-107 mmol/L Carbon Dioxide Level 34 21-32 mmol/L Anion Gap 8.0 3-11 mmol/L Blood Urea Nitrogen 12 7-18 mg/dl Creatinine 1.10 0.60-1.40 mg/dl Est Creatinine Clear Calc Drug Dose 66.2 ml/min Estimated GFR () 76.2 Estimated GFR (Non- 65.8 BUN/Creatinine Ratio 10.6 10-20 Random Glucose 114 70-99 mg/dl Calcium Level 8.0 8.5-10.1 mg/dl Phosphorus Level 2.9 2.5-4.9 mg/dl Magnesium Level 1.9 1.8-2.4 mg/dl Test 10/07/16 08:45 Range/Units Arterial Blood pH 7.40 7.35-7.45 Arterial Blood Partial Pressure CO2 56 35-46 mmHg Arterial Blood Partial Pressure O2 58 80-95 mm/Hg Arterial Blood HCO3 34 19-24 mmol/L Arterial Blood Oxygen Saturation 87.1 90-95 % Arterial Blood Base Excess 7.4 -9-1.8 mEq/L Arterial Blood Gas Delivery 2 LITERS Junior Test POS POS Assessment & Plan POD # 4 s/p exploratory laparotomy with sigmoid resection and creation of colostomy and Saniya Pouch -Vital signs stable - tolerating clear liquids - + ostomy output, ostomy sightly dusky, nontender on palpation - abdominal examination benign - H&H 9.4/29.4 respectively s/p transfusion of 2 PRBCs post-op Plan: Continue clear liquids Continue current management established by Medicine Will discuss with Dr. Garcia who will see patient later today.
--- NOTE | 2016-10-07 09:47 | Progress Note ---
Subjective Date of Service: Oct 07, 2016. Subjective Pt evaluation today including: conversation w/ patient, physical exam, lab review, review of studies, review of inpatient medication list Saw/examined the patient in room 110 Doing okay today, awake and alert Tolerating PO diet - had clear broth this morning with no problems/issues c/o chronic back pain and right hip pain no significant abdominal pain +colostomy draining well Problem List Medical Problems: (1) Altered mental status Status: Acute (2) Altered mental status Status: Acute (3) Altered mental status Status: Acute (4) Altered mental status Status: Acute (5) Diffuse abdominal pain Status: Acute (6) Dislodged Cantrell catheter Status: Acute (7) Fever Status: Acute (8) Hematuria Status: Acute (9) Hyperglycemia Status: Acute (10) Hypomagnesemia Status: Acute (11) Hypoxia Status: Acute (12) Hypoxia Status: Acute (13) Lactic acid acidosis Status: Acute (14) Left lower lobe pneumonia Status: Acute (15) Leukocytosis Status: Acute (16) Pneumonia Status: Acute (17) Renal insufficiency Status: Acute (18) Sepsis Status: Acute (19) Sigmoid volvulus Status: Acute (20) Sigmoid volvulus Status: Acute (21) UTI (urinary tract infection) Status: Acute (22) UTI (urinary tract infection) Status: Acute (23) UTI (urinary tract infection) Status: Acute (24) UTI (urinary tract infection) Status: Acute (25) UTI (urinary tract infection) Status: Acute Review of Systems Constitutional: + problem reported (increased appetite), No chills, No fever Respiratory: No cough, No dyspnea at rest, No dyspnea on exertion, No hemoptysis, No shortness of breath, No sputum, No wheezing Cardiac: No chest pain, No edema, No palpitations Abdomen: No nausea, No pain, No vomiting Musculoskeletal: + joint pain (back and right hip/lower extremity; chronic) Heme: No abnormal bleeding/bruising Medications Current Inpatient Medications Medications (Trade) Dose Ordered Sig/Betzy Route Start Time Stop Time Status Last Admin Dose Admin Glucose (Glucose 40% Gel) 15-30 GRAMS 15 GRAMS... UD PRN PO 09/28/16 23:00 10/28/16 22:59 Glucose (Glucose Chew Tab) 4-8 Tablets 4 Tabl... UD PRN PO 09/28/16 23:00 10/28/16 22:59 Dextrose (Dextrose 50% 50ML Syringe) 25-50ML OF 50% DW IV FOR... UD PRN IV 09/28/16 23:00 10/28/16 22:59 Glucagon (Glucagon Inj) 1 mg UD PRN SQ 09/28/16 23:00 10/28/16 22:59 Ondansetron HCl 4 mg 4 mg Q6H PRN IV 09/28/16 23:00 10/28/16 22:59 10/06/16 03:07 4 MG Promethazine HCl/ Sodium Chloride (Phenergan Inj/ Nss 50ml) 50.5 ml @ 204 mls/hr Q6H PRN IV 09/28/16 23:00 10/28/16 22:59 Aspirin (Aspirin Chew) 81 mg QAM PO 09/29/16 09:00 10/29/16 08:59 Future hold 10/07/16 08:26 81 MG Multi-Ingredient Ointment (Eucerin Unscented Cr) 1 appln BID PRN EXT 09/30/16 13:15 10/30/16 13:14 Duloxetine HCl (Cymbalta Cap) 60 mg QAM PO 10/01/16 09:00 10/31/16 08:59 Future hold 10/07/16 08:24 60 MG Magnesium Hydroxide (Milk Of Magnesia Susp) 30 ml UD PRN PO 09/30/16 17:45 10/30/16 17:44 Future hold Sodium Chloride (Edmunds Nasal Harrold) 2 sprays Q4H PRN SABRINA 09/30/16 17:45 10/30/16 17:44 Multi-Ingredient Ointment (Eucerin Unscented Cr) 1 appln HS EXT 09/30/16 21:00 10/30/16 20:59 10/06/16 19:57 1 APPLN Multi-Ingredient Ointment (Desitin Oint) 1 gm BID EXT 09/30/16 21:00 10/30/16 20:59 10/07/16 08:23 1 GM Imipenem/ Cilastatin Sodium 1 ea 1 ea UD PRN N/A 10/02/16 11:00 11/01/16 10:59 Imipenem/ Cilastatin Sodium/ Dextrose (Primaxin Iv/D5 100ml) 110 ml @ 110 mls/hr Q6@0000,0600,1200,1800 IV 10/02/16 12:00 10/12/16 11:59 10/07/16 05:49 110 MLS/HR Hydromorphone HCl 0.5 mg 0.5 mg Q4 PRN IV 10/03/16 18:15 10/17/16 18:14 10/07/16 01:42 0.5 MG Acetaminophen/ Empty Bag (Ofirmev IV/ Empty Iv Bag 100ml) 65 ml @ 260 mls/hr Q6H PRN IV 10/03/16 21:45 11/02/16 21:44 10/06/16 03:11 260 MLS/HR Metolazone (Zaroxolyn Tab) 2.5 mg TuFr@0830 PO 10/07/16 08:30 11/06/16 08:29 10/07/16 08:23 2.5 MG Heparin Sodium (Porcine) (Heparin Sq 5000 Unit/0.5ml) 5,000 unit Q8 SQ 10/05/16 14:00 11/04/16 13:59 10/07/16 05:50 5,000 UNIT Ipratropium Riley (Atrovent 0.02% 0.5MG/2.5ML Neb) 0.5 mg Q6R INH 10/05/16 21:00 11/04/16 20:59 10/07/16 08:50 0.5 MG Levalbuterol (Xopenex 1.25MG/ 0.5ML Neb) 1.25 mg Q6R INH 10/05/16 21:00 11/04/16 20:59 10/07/16 08:50 1.25 MG Heparin Sodium (Porcine) (Heparin 10 Unit/ ml 5 ml Flush) 5 ml PRN PRN FLUSH 10/06/16 00:45 11/05/16 00:44 Insulin Aspart (novoLOG ASPART) SLIDING SCALE If C... ACHS SC 10/06/16 11:00 11/04/16 11:59 Metoprolol Tartrate (Lopressor Iv) 5 mg Q6 PRN IV 10/06/16 12:00 11/05/16 11:59 Furosemide (Lasix Tab) 40 mg QAM PO 10/07/16 09:00 11/06/16 08:59 10/07/16 08:25 40 MG Pantoprazole Sodium (Protonix Tab) 40 mg QAM PO 10/07/16 09:00 11/06/16 08:59 10/07/16 08:25 40 MG Acetaminophen (Tylenol Tab) 650 mg Q4H PRN PO 10/06/16 10:45 11/05/16 10:44 Diclofenac Sodium (Voltaren 1% Top Gel) 1 appln TID EXT 10/06/16 14:00 11/05/16 13:59 10/07/16 08:23 1 APPLN Rosuvastatin Calcium (Crestor Tab) 10 mg DAILY PO 10/07/16 09:00 11/06/16 08:59 10/07/16 08:24 10 MG Pregabalin (Lyrica Cap) 75 mg BID PO 10/06/16 11:00 11/05/16 10:59 10/07/16 08:27 75 MG Sotalol HCl (Betapace Tab) 80 mg BID PO 10/06/16 11:15 11/05/16 11:14 10/07/16 08:24 80 MG Amitriptyline HCl (Elavil Tab) 10 mg BID PO 10/06/16 21:00 11/05/16 20:59 10/07/16 08:24 10 MG Warfarin Sodium (Coumadin Tab) 4 mg DAILY@16 PO 10/07/16 16:00 11/06/16 15:59 Objective Vital Signs Date Time Temp Pulse Resp B/P Pulse Ox O2 Delivery O2 Flow Rate FiO2 10/07/16 07:00 70 12 98 Nasal Cannula 2.0 10/07/16 04:00 36.8 73 14 119/60 97 Nasal Cannula 2.0 10/07/16 04:00 93 Room Air 10/07/16 01:47 71 16 95 Nasal Cannula 2.0 10/06/16 23:59 93 Room Air 10/06/16 23:58 37.1 77 20 118/76 93 Room Air Mechanical Ventilator 10/06/16 20:00 37.2 84 18 132/78 95 Room Air 10/06/16 20:00 95 Room Air 10/06/16 19:17 83 16 95 Room Air 10/06/16 16:36 91 16 96 Room Air 10/06/16 16:13 37.3 80 22 144/87 96 Room Air 10/06/16 16:00 Room Air 10/06/16 12:43 36.9 105 20 119/76 93 Room Air 10/06/16 12:00 Room Air Physical Exam General Appearance: no apparent distress, + pertinent finding (paraplegic at baseline; obese; empty tray at bedside) ENT: hearing grossly normal Respiratory/Chest: chest non-tender, lungs clear, normal breath sounds, no respiratory distress, no accessory muscle use Cardiovascular: regular rate, rhythm, no murmur Abdomen: soft, + pertinent finding (+incisional scar with margie; some redness around the area, mildly tender to palpation; +colostomy in place; draining well) Extremities: + pertinent finding (chronic +2 pitting edema b/l LE; venous stasis changes; redness/fragile skin) Neurologic/Psychiatric: alert, normal mood/affect, oriented x 3 Laboratory Results Last 24 Hours Test 10/06/16 11:29 10/06/16 15:56 10/06/16 20:05 10/07/16 05:47 Bedside Glucose 150 mg/dl 106 mg/dl 136 mg/dl White Blood Count 7.68 K/uL Red Blood Count 3.54 M/uL Hemoglobin 9.4 g/dL Hematocrit 29.4 % Mean Corpuscular Volume 83.1 fL Mean Corpuscular Hemoglobin 26.6 pg Mean Corpuscular Hemoglobin Concent 32.0 g/dl RDW Standard Deviation 53.7 fL RDW Coefficient of Variation 17.8 % Platelet Count 275 K/uL Mean Platelet Volume 8.9 fL Nucleated RBC Absolute Count (auto) 0.02 K/uL Nucleated Red Blood Cells % 0.3 % Prothrombin Time 11.4 SECONDS Prothromb Time International Ratio 1.1 Sodium Level 136 mmol/L Potassium Level 3.2 mmol/L Chloride Level 94 mmol/L Carbon Dioxide Level 34 mmol/L Anion Gap 8.0 mmol/L Blood Urea Nitrogen 12 mg/dl Creatinine 1.10 mg/dl Est Creatinine Clear Calc Drug Dose 66.2 ml/min Estimated GFR () 76.2 Estimated GFR (Non- 65.8 BUN/Creatinine Ratio 10.6 Random Glucose 114 mg/dl Calcium Level 8.0 mg/dl Phosphorus Level 2.9 mg/dl Magnesium Level 1.9 mg/dl Test 10/07/16 08:45 Arterial Blood pH 7.40 Arterial Blood Partial Pressure CO2 56 mmHg Arterial Blood Partial Pressure O2 58 mm/Hg Arterial Blood HCO3 34 mmol/L Arterial Blood Oxygen Saturation 87.1 % Arterial Blood Base Excess 7.4 mEq/L Arterial Blood Gas Delivery 2 LITERS Junior Test POS Assessment and Plan This is a 76 year old male with PMH of 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 of atrial fibrillation on anticoagulation, recurrent lower extremity cellulitis, hx. of discitis, presents with recurrent sigmoid volvulus Acute Respiratory Failure - improved 10/07 His respiratory failure began prior to his surgery (10/04) post-operatively - he required intubation multifactorial in nature - likely obesity-hypoventilation, atelectatic changes seen on CXR due to body habitus, possibly volume overload with acute diastolic CHF patient has been extubated (on 10/05) currently saturating well on 2L O2 via nasal cannula we will continue nocturnal Bipap and Bipap PRN ABG from this AM (10/07) does show some hypercapnia and hypoxia, though normal pH continue nebulizers as needed incentive spirometry encouraged appreciate pulmonary input Recurrent Sigmoid Volvulus s/p Sigmoid Colectomy 10/07 presented in July with similar presentation at that time, he had a colonoscopy/rectal tube to decompress the volvulus at that time they recommended surgery, but he refused, knowing that recurrence was a possibility presented again from [facility] with altered mental status and abdominal distention Abdominal CT was performed showing recurrent volvulus decompression again performed as per GI s/p sigmoid colectomy on (10/03) - colostomy formed and functioning well tolerating clears appreciate surgery input - advance when okay with surgery Acute Blood Loss Anemia 10/07 s/p 2 units of PRBCs post-operatively at its noemi; Hgb down to 7.7 on 10/05 Currently, Hgb > 9; asymptomatic monitor H/H and transfuse PRN Metabolic Encephalopathy secondary to Recurrent UTI in the setting of Neurogenic Bladder and Indwelling Catheter growing drug-resistant E. coli and Pseudomonas repeat culture on 10/04 negative Currently on Invanz day #6 Recurrent b/l LE cellulitis - resolved patient with chronic venous stasis issues has had multiple episodes of cellulitis currently, lower extremities look improved with no significant erythema or warmth Stage II Sacral Pressure Ulcer present on admission appreciate wound care consultation daily dressing changes Paroxysmal A. Fib Coumadin has since been restarted; INR = 1.1, monitor daily continue Sotalol; currently NSR Diastolic CHF has had respiratory distress has been diuresed throughout hospital stay currently receiving PO Lasix 40mg daily DM2 hold oral agents insulin sliding scale will monitor BSGs with changing diet HTN Norvasc held blood pressures are stable, monitor BP DVT ppx subq heparin Coumadin restarted; monitor INR DNR POA Darius Liner - Cousin contact number [phone]
[2016-10-07] MEDS: WARFARIN SOD 4 MG TAB PO SCH (16:29)
--- NOTE | 2016-10-07 18:56 | PULMONARY PROGRESS NOTE ---
DATE: 10/07/2016 TIME: 6:10 p.m. SUBJECTIVE: The patient has been moved out of the intensive care unit. He is lethargic, but arousable. He was complaining to the nurse of pain. He denies shortness of breath. He denies cough. The patient did not verbalize all that much. OBJECTIVE: GENERAL: The patient did not appear in any distress. He was somewhat lethargic as noted. VITAL SIGNS: Temperature is 36.7. Heart rate is 67 per minute, the rhythm is regular. Blood pressure is 121/82. LUNGS: Lung ramos reveal decreased breath sounds at the bases. No wheezing was heard. The patient was able to take deep breaths for me. His oxygen saturation recorded at 5:09 p.m. was 100% on 2 liters, but then at 5:50 p.m. was 85% on 2 liters. ABDOMEN: Shows a colostomy. It is functioning. There are active bowel sounds. The abdomen looks distended. There is no tenderness to palpation. EXTREMITIES: Continue to show significant edema as well as color changes which were seen previously. LABORATORY DATA: Blood gas done today showed a pH of 7.40 with a pCO2 of 56 and a pO2 of 58 done on 2 liter nasal cannula. The pCO2 was higher than it had been on the prior blood gas checks, but that was when he was on the ventilator. Presumably, this is his baseline pCO2 in light of the normal pH. Electrolytes show sodium of 136, potassium 3.2, chloride 94, bicarbonate 34. BUN is 12 with a creatinine of 1.1. Blood sugar is 128. White count is 7.68. Hemoglobin is 9.4. Platelets are 275,000. IMPRESSION: 1. Chronic respiratory failure. 2. Obstructive sleep apnea. 3. Status post resection of sigmoid volvulus. 4. Hypoventilatory change. 5. Anemia. COMMENTS AND RECOMMENDATIONS: The patient refused BiPAP last evening. We need to encourage him to try to use the BiPAP as much as possible. I would continue with the respiratory treatments. He will need to have a recheck on his pulse oximetry that was low at the most recent setting.
[2016-10-07] MEDS: EUCERIN CR 120 GM JAR EXT SCH (21:25)
[2016-10-08] VITALS (9 sets, daily range): BP systolic 107–126; BP diastolic 69–81; PULSE 59–69; TEMP 37.2–37.9; O2SAT 93–99
[2016-10-08] MEDS: IPRATROPIUM BROMIDE NEB SOLN 0.02% 2.5 ML VIAL INH SCH ×4 (02:11→20:06)
[2016-10-08] MEDS: LEVALBUTEROL 1.25MG/0.5ML NEB INH SCH ×4 (02:11→20:06)
[2016-10-08] MEDS: IMIPENEM/CILASTATIN IV 500 MG in D5W 100ML IV SCH ×4 (05:41→23:45)
[2016-10-08] MEDS: HEPARIN SOD 5000 UNIT/0.5 ML CARP SQ SCH ×3 (05:41→21:46)
[2016-10-08 05:47] LABS: HEMATOCRIT 30.6 % (42-52); MEAN CORPUSCULAR HEMOGLOBIN 26.7 pg (25-34); MEAN PLATELET VOLUME 9.5 fL (7.4-10.4); PLATELET COUNT 303 K/uL (130-400); RED BLOOD COUNT 3.56 M/uL (4.7-6.1); WHITE BLOOD COUNT 7.46 K/uL (4.8-10.8)
[2016-10-08 05:52] LABS: INR 1.1 (0.9-1.1); PROTHROMBIN TIME (PATIENT) 11.8 SECONDS (9.0-12.0)
[2016-10-08 06:16] LABS: BUN/CREATININE RATIO 11.8 (10-20); CALCIUM 8.6 mg/dl (8.5-10.1); CREATININE 1.2 mg/dl (0.60-1.40); MAGNESIUM 1.9 mg/dl (1.8-2.4); PHOSPHORUS 3.4 mg/dl (2.5-4.9)
--- NOTE | 2016-10-08 06:46 | Surgery Progress Note ---
Surgery Progress Note Date of Service Oct 08, 2016. Subjective Post OP Day: 5 + bowel movement (colostomy functioning), + diet (tolerated clear liquids), No complaints, No nausea, No vomiting Objective Vital Signs: Date Time Temp Pulse Resp B/P Pulse Ox O2 Delivery O2 Flow Rate FiO2 10/08/16 02:11 68 16 93 Nasal Cannula 2.0 10/07/16 23:32 36.8 63 16 104/66 91 Nasal Cannula 2.0 10/07/16 20:58 62 16 95 Nasal Cannula 2.0 10/07/16 20:00 Nasal Cannula 2.0 10/07/16 18:23 91 Nasal Cannula 2.0 10/07/16 17:50 36.7 67 17 121/82 85 Nasal Cannula 2.0 10/07/16 17:09 36.4 60 14 100 2.0 10/07/16 16:00 36.4 60 14 137/66 100 Nasal Cannula 2.0 10/07/16 16:00 99 Nasal Cannula 2.0 10/07/16 14:15 68 12 100 Nasal Cannula 2.0 10/07/16 12:00 36.6 65 16 136/75 99 Nasal Cannula 2.0 10/07/16 12:00 99 Nasal Cannula 2.0 10/07/16 08:00 98 Nasal Cannula 2.0 10/07/16 08:00 36.6 72 18 145/76 98 Nasal Cannula 2.0 10/07/16 07:00 70 12 98 Nasal Cannula 2.0 Abdomen: normal bowel sounds, non tender, non distended, + pertinent finding ( ostomy viable) Incision(s): clean, dry, intact, no erythema, no drainage Laboratory Results: Results Past 24 Hours Test 10/07/16 08:45 10/07/16 11:21 10/07/16 15:28 10/07/16 21:27 Range/Units Arterial Blood pH 7.40 7.35-7.45 Arterial Blood Partial Pressure CO2 56 35-46 mmHg Arterial Blood Partial Pressure O2 58 80-95 mm/Hg Arterial Blood HCO3 34 19-24 mmol/L Arterial Blood Oxygen Saturation 87.1 90-95 % Arterial Blood Base Excess 7.4 -9-1.8 mEq/L Arterial Blood Gas Delivery 2 LITERS Junior Test POS POS Bedside Glucose 157 128 124 70-99 mg/dl Test 10/08/16 04:55 Range/Units White Blood Count 7.46 4.8-10.8 K/uL Red Blood Count 3.56 4.7-6.1 M/uL Hemoglobin 9.5 14.0-18.0 g/dL Hematocrit 30.6 42-52 % Mean Corpuscular Volume 86.0 80-100 fL Mean Corpuscular Hemoglobin 26.7 25-34 pg Mean Corpuscular Hemoglobin Concent 31.0 32-36 g/dl RDW Standard Deviation 55.9 36.4-46.3 fL RDW Coefficient of Variation 17.7 11.5-14.5 % Platelet Count 303 130-400 K/uL Mean Platelet Volume 9.5 7.4-10.4 fL Nucleated RBC Absolute Count (auto) 0.03 0-0 K/uL Nucleated Red Blood Cells % 0.4 % Prothrombin Time 11.8 9.0-12.0 SECONDS Prothromb Time International Ratio 1.1 0.9-1.1 Sodium Level 137 136-145 mmol/L Potassium Level 3.0 3.5-5.1 mmol/L Chloride Level 94 98-107 mmol/L Carbon Dioxide Level 37 21-32 mmol/L Anion Gap 6.0 3-11 mmol/L Blood Urea Nitrogen 14 7-18 mg/dl Creatinine 1.20 0.60-1.40 mg/dl Est Creatinine Clear Calc Drug Dose 60.7 ml/min Estimated GFR () 68.6 Estimated GFR (Non- 59.2 BUN/Creatinine Ratio 11.8 10-20 Random Glucose 117 70-99 mg/dl Calcium Level 8.6 8.5-10.1 mg/dl Phosphorus Level 3.4 2.5-4.9 mg/dl Magnesium Level 1.9 1.8-2.4 mg/dl Assessment & Plan S/P sigmoid colectomy with formation of colostomy Bowel function continues Tolerating clear liquids Advance to full liquids H&H stable
[2016-10-08] MEDS: INSULIN ASPART 100 UNITS/ML 3 ML PEN SC SCH ×4 (07:55→21:00)
[2016-10-08] MEDS: DICLOFENAC SOD 1% GEL 100 GM TUBE EXT SCH ×3 (08:02→21:39)
[2016-10-08] MEDS: ASPIRIN 81 MG CHEW PO SCH (08:05)
[2016-10-08] MEDS: AMITRIPTYLINE HCL 10 MG TAB PO SCH ×2 (08:05→21:38)
[2016-10-08] MEDS: PANTOprazole SOD 40 MG TAB PO SCH (08:05)
[2016-10-08] MEDS: SOTALOL HCL 80 MG TAB PO SCH ×2 (08:06→21:38)
[2016-10-08] MEDS: FUROSEMIDE 40 MG TAB PO SCH (08:06)
[2016-10-08] MEDS: ROSUVASTATIN CALCIUM 10 MG TAB PO SCH (08:06)
[2016-10-08] MEDS: DULOXETINE HCL 60 MG CAP PO SCH (08:06)
[2016-10-08] MEDS: PREGABALIN 75 MG CAP PO SCH ×2 (08:07→21:38)
[2016-10-08] MEDS: LANOLIN/PETROLATUM 30 GM TUBE EXT SCH ×4 (08:08→21:39)
[2016-10-08] MEDS: HYDROmorphone INJ 0.5 MG/0.5 ML SYR IV PRN (15:24)
[2016-10-08] MEDS: WARFARIN SOD 4 MG TAB PO SCH (15:28)
--- NOTE | 2016-10-08 17:40 | PULMONARY PROGRESS NOTE ---
DATE: 10/08/2016 TIME: 05:10 p.m. SUBJECTIVE: The patient is feeling better. He denies cough or shortness of breath, although I am not sure that he is a good historian. He denies abdominal pain. OBJECTIVE: GENERAL: The patient looked comfortable. He was much more awake than he had been in the last 2 days. VITAL SIGNS: He does have a low-grade fever. Most recent temperature is 37.6. The patient's heart rate is 83 beats per minute. The rhythm was regular. Blood pressure 126/77. LUNGS: Lung ramos revealed fairly good breath sounds bilaterally with no significant wheezes or rhonchi. Saturation was 95% on 2 liters done by myself. ABDOMEN: While it is large, it does not seem overtly distended. It is seemingly a little softer than yesterday. Bowel sounds were present. He has a colostomy. EXTREMITIES: Unchanged showing chronic skin color changes and chronic edema. LABORATORY DATA: White count today is 7.46. Hemoglobin is 9.5. Platelets are 303,000. INR is 1.1. Electrolytes show sodium 137, potassium 3.0, chloride 97, and bicarbonate 37. The BUN is 14 with a creatinine of 1.2. Blood sugar most recently was 146. IMPRESSIONS: 1. Chronic respiratory failure. 2. Status post resection of sigmoid volvulus. 3. Obstructive sleep apnea. 4. Hypoventilatory change. 5. Anemia. COMMENTS AND RECOMMENDATIONS: The patient clinically looks better. He is, however, spiking a fever this afternoon that will need to be followed carefully. I was unable to determine if the patient wore his BiPAP last night or not. I would continue with the current therapy. I have encouraged the patient to keep taking deep breaths. I am doubtful that he is compliant with that, however. He is still getting the nebulizer treatments.
--- NOTE | 2016-10-08 19:02 | Progress Note ---
Subjective Date of Service: Oct 08, 2016. Subjective Pt evaluation today including: conversation w/ patient, physical exam, lab review, review of studies, review of inpatient medication list Saw/examined the patient in room 361 Doing well, tolerated full liquids today; eager for solid food No other issues to note Problem List Medical Problems: (1) Altered mental status Status: Acute (2) Altered mental status Status: Acute (3) Altered mental status Status: Acute (4) Altered mental status Status: Acute (5) Diffuse abdominal pain Status: Acute (6) Dislodged Cantrell catheter Status: Acute (7) Fever Status: Acute (8) Hematuria Status: Acute (9) Hyperglycemia Status: Acute (10) Hypomagnesemia Status: Acute (11) Hypoxia Status: Acute (12) Hypoxia Status: Acute (13) Lactic acid acidosis Status: Acute (14) Left lower lobe pneumonia Status: Acute (15) Leukocytosis Status: Acute (16) Pneumonia Status: Acute (17) Renal insufficiency Status: Acute (18) Sepsis Status: Acute (19) Sigmoid volvulus Status: Acute (20) Sigmoid volvulus Status: Acute (21) UTI (urinary tract infection) Status: Acute (22) UTI (urinary tract infection) Status: Acute (23) UTI (urinary tract infection) Status: Acute (24) UTI (urinary tract infection) Status: Acute (25) UTI (urinary tract infection) Status: Acute Review of Systems Constitutional: + weakness, No chills, No fever Respiratory: No cough, No shortness of breath Cardiac: No chest pain Abdomen: No constipation, No diarrhea, No nausea, No pain, No vomiting Medications Current Inpatient Medications Medications (Trade) Dose Ordered Sig/Betzy Route Start Time Stop Time Status Last Admin Dose Admin Glucose (Glucose 40% Gel) 15-30 GRAMS 15 GRAMS... UD PRN PO 09/28/16 23:00 10/28/16 22:59 Glucose (Glucose Chew Tab) 4-8 Tablets 4 Tabl... UD PRN PO 09/28/16 23:00 10/28/16 22:59 Dextrose (Dextrose 50% 50ML Syringe) 25-50ML OF 50% DW IV FOR... UD PRN IV 09/28/16 23:00 10/28/16 22:59 Glucagon (Glucagon Inj) 1 mg UD PRN SQ 09/28/16 23:00 10/28/16 22:59 Ondansetron HCl 4 mg 4 mg Q6H PRN IV 09/28/16 23:00 10/28/16 22:59 10/06/16 03:07 4 MG Promethazine HCl/ Sodium Chloride (Phenergan Inj/ Nss 50ml) 50.5 ml @ 204 mls/hr Q6H PRN IV 09/28/16 23:00 10/28/16 22:59 Aspirin (Aspirin Chew) 81 mg QAM PO 09/29/16 09:00 10/29/16 08:59 Future hold 10/08/16 08:05 81 MG Multi-Ingredient Ointment (Eucerin Unscented Cr) 1 appln BID PRN EXT 09/30/16 13:15 10/30/16 13:14 Duloxetine HCl (Cymbalta Cap) 60 mg QAM PO 10/01/16 09:00 10/31/16 08:59 Future hold 10/08/16 08:06 60 MG Magnesium Hydroxide (Milk Of Magnesia Susp) 30 ml UD PRN PO 09/30/16 17:45 10/30/16 17:44 Future hold Sodium Chloride ([place] Nasal [place]) 2 sprays Q4H PRN SABRINA 09/30/16 17:45 10/30/16 17:44 Multi-Ingredient Ointment (Eucerin Unscented Cr) 1 appln HS EXT 09/30/16 21:00 10/30/16 20:59 10/07/16 21:25 1 APPLN Multi-Ingredient Ointment (Desitin Oint) 1 gm BID EXT 09/30/16 21:00 10/30/16 20:59 10/08/16 08:08 1 GM Imipenem/ Cilastatin Sodium 1 ea 1 ea UD PRN N/A 10/02/16 11:00 11/01/16 10:59 Imipenem/ Cilastatin Sodium/ Dextrose (Primaxin Iv/D5 100ml) 110 ml @ 110 mls/hr Q6@0000,0600,1200,1800 IV 10/02/16 12:00 10/12/16 11:59 10/08/16 17:36 110 MLS/HR Hydromorphone HCl 0.5 mg 0.5 mg Q4 PRN IV 10/03/16 18:15 10/17/16 18:14 10/08/16 15:24 0.5 MG Acetaminophen/ Empty Bag (Ofirmev IV/ Empty Iv Bag 100ml) 65 ml @ 260 mls/hr Q6H PRN IV 10/03/16 21:45 11/02/16 21:44 10/06/16 03:11 260 MLS/HR Metolazone (Zaroxolyn Tab) 2.5 mg TuFr@0830 PO 10/07/16 08:30 11/06/16 08:29 10/07/16 08:23 2.5 MG Heparin Sodium (Porcine) (Heparin Sq 5000 Unit/0.5ml) 5,000 unit Q8 SQ 10/05/16 14:00 11/04/16 13:59 10/08/16 15:27 5,000 UNIT Ipratropium Early (Atrovent 0.02% 0.5MG/2.5ML Neb) 0.5 mg Q6R INH 10/05/16 21:00 11/04/16 20:59 10/08/16 14:26 0.5 MG Levalbuterol (Xopenex 1.25MG/ 0.5ML Neb) 1.25 mg Q6R INH 10/05/16 21:00 11/04/16 20:59 10/08/16 14:26 1.25 MG Heparin Sodium (Porcine) (Heparin 10 Unit/ ml 5 ml Flush) 5 ml PRN PRN FLUSH 10/06/16 00:45 11/05/16 00:44 10/08/16 07:56 5 ML Insulin Aspart (novoLOG ASPART) SLIDING SCALE If C... ACHS SC 10/06/16 11:00 11/04/16 11:59 Metoprolol Tartrate (Lopressor Iv) 5 mg Q6 PRN IV 10/06/16 12:00 11/05/16 11:59 Furosemide (Lasix Tab) 40 mg QAM PO 10/07/16 09:00 11/06/16 08:59 10/08/16 08:06 40 MG Pantoprazole Sodium (Protonix Tab) 40 mg QAM PO 10/07/16 09:00 11/06/16 08:59 10/08/16 08:05 40 MG Acetaminophen (Tylenol Tab) 650 mg Q4H PRN PO 10/06/16 10:45 11/05/16 10:44 Diclofenac Sodium (Voltaren 1% Top Gel) 1 appln TID EXT 10/06/16 14:00 11/05/16 13:59 10/08/16 15:26 1 APPLN Rosuvastatin Calcium (Crestor Tab) 10 mg DAILY PO 10/07/16 09:00 11/06/16 08:59 10/08/16 08:06 10 MG Pregabalin (Lyrica Cap) 75 mg BID PO 10/06/16 11:00 11/05/16 10:59 10/08/16 08:07 75 MG Sotalol HCl (Betapace Tab) 80 mg BID PO 10/06/16 11:15 11/05/16 11:14 10/08/16 08:06 80 MG Amitriptyline HCl (Elavil Tab) 10 mg BID PO 10/06/16 21:00 11/05/16 20:59 10/08/16 08:05 10 MG Warfarin Sodium (Coumadin Tab) 4 mg DAILY@16 PO 10/07/16 16:00 11/06/16 15:59 10/08/16 15:28 4 MG Objective Vital Signs Date Time Temp Pulse Resp B/P Pulse Ox O2 Delivery O2 Flow Rate FiO2 10/08/16 15:11 37.6 63 17 126/77 97 Nasal Cannula 2.0 10/08/16 14:28 62 16 94 Nasal Cannula 2.0 10/08/16 10:40 95 Nasal Cannula 2.0 10/08/16 08:00 65 119/81 10/08/16 07:55 Room Air 10/08/16 07:38 65 16 96 Nasal Cannula 2.0 10/08/16 07:30 37.2 65 20 107/75 95 Nasal Cannula 2.0 10/08/16 02:11 68 16 93 Nasal Cannula 2.0 10/07/16 23:32 36.8 63 16 104/66 91 Nasal Cannula 2.0 10/07/16 20:58 62 16 95 Nasal Cannula 2.0 10/07/16 20:00 Nasal Cannula 2.0 Physical Exam General Appearance: no apparent distress, + pertinent finding (paraplegia; awake/alert) Respiratory/Chest: lungs clear, normal breath sounds, no respiratory distress, no accessory muscle use Cardiovascular: regular rate, rhythm, no edema, no murmur Abdomen: normal bowel sounds, + tenderness Neurologic/Psychiatric: alert, normal mood/affect, oriented x 3 Skin: + rash (on bilateral legs; venous stasis changes, no acute cellulitic changes) Lymphatic: no adenopathy Laboratory Results Last 24 Hours Test 10/07/16 21:27 10/08/16 04:55 10/08/16 07:22 10/08/16 11:15 Bedside Glucose 124 mg/dl 122 mg/dl 162 mg/dl White Blood Count 7.46 K/uL Red Blood Count 3.56 M/uL Hemoglobin 9.5 g/dL Hematocrit 30.6 % Mean Corpuscular Volume 86.0 fL Mean Corpuscular Hemoglobin 26.7 pg Mean Corpuscular Hemoglobin Concent 31.0 g/dl RDW Standard Deviation 55.9 fL RDW Coefficient of Variation 17.7 % Platelet Count 303 K/uL Mean Platelet Volume 9.5 fL Nucleated RBC Absolute Count (auto) 0.03 K/uL Nucleated Red Blood Cells % 0.4 % Prothrombin Time 11.8 SECONDS Prothromb Time International Ratio 1.1 Sodium Level 137 mmol/L Potassium Level 3.0 mmol/L Chloride Level 94 mmol/L Carbon Dioxide Level 37 mmol/L Anion Gap 6.0 mmol/L Blood Urea Nitrogen 14 mg/dl Creatinine 1.20 mg/dl Est Creatinine Clear Calc Drug Dose 60.7 ml/min Estimated GFR () 68.6 Estimated GFR (Non- 59.2 BUN/Creatinine Ratio 11.8 Random Glucose 117 mg/dl Calcium Level 8.6 mg/dl Phosphorus Level 3.4 mg/dl Magnesium Level 1.9 mg/dl Test 10/08/16 16:50 Bedside Glucose 146 mg/dl Assessment and Plan This is a 76 year old male with PMH of 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 of atrial fibrillation on anticoagulation, recurrent lower extremity cellulitis, hx. of discitis, presents with recurrent sigmoid volvulus Acute Respiratory Failure - improved 10/08 seems to be at baseline did not use bipap last night, will discuss with patient otherwise, continue current medications 10/07 His respiratory failure began prior to his surgery (10/04) post-operatively - he required intubation multifactorial in nature - likely obesity-hypoventilation, atelectatic changes seen on CXR due to body habitus, possibly volume overload with acute diastolic CHF patient has been extubated (on 10/05) currently saturating well on 2L O2 via nasal cannula we will continue nocturnal Bipap and Bipap PRN ABG from this AM (10/07) does show some hypercapnia and hypoxia, though normal pH continue nebulizers as needed incentive spirometry encouraged appreciate pulmonary input Recurrent Sigmoid Volvulus s/p Sigmoid Colectomy 10/08 doing well s/p sigmoid colectomy tolerating full liquids plan is to advance as per general surgery d/c when tolerating PO intake 10/07 presented in July with similar presentation at that time, he had a colonoscopy/rectal tube to decompress the volvulus at that time they recommended surgery, but he refused, knowing that recurrence was a possibility presented again from [facility] with altered mental status and abdominal distention Abdominal CT was performed showing recurrent volvulus decompression again performed as per GI s/p sigmoid colectomy on (10/03) - colostomy formed and functioning well tolerating clears appreciate surgery input - advance when okay with surgery Acute Blood Loss Anemia 10/07 s/p 2 units of PRBCs post-operatively at its noemi; Hgb down to 7.7 on 10/05 Currently, Hgb > 9; asymptomatic monitor H/H and transfuse PRN Metabolic Encephalopathy secondary to Recurrent UTI in the setting of Neurogenic Bladder and Indwelling Catheter growing drug-resistant E. coli and Pseudomonas repeat culture on 10/04 negative Currently on Invanz day #6/10 Recurrent b/l LE cellulitis - resolved patient with chronic venous stasis issues has had multiple episodes of cellulitis currently, lower extremities look improved with no significant erythema or warmth Stage II Sacral Pressure Ulcer present on admission appreciate wound care consultation daily dressing changes Paroxysmal A. Fib Coumadin has since been restarted; INR = 1.1, monitor daily continue Sotalol; currently NSR Diastolic CHF has had respiratory distress has been diuresed throughout hospital stay currently receiving PO Lasix 40mg daily DM2 hold oral agents insulin sliding scale will monitor BSGs with changing diet HTN Norvasc held blood pressures are stable, monitor BP DVT ppx subq heparin Coumadin restarted; monitor INR DNR POA Darius Liner - Cousin contact number [phone]
[2016-10-08] MEDS: POTASSIUM CHLR 20 MEQ / WTR 20 MEQ in PREMIXED WATER 100 ML IV SCH ×2 (19:32→21:38)
[2016-10-08] MEDS: EUCERIN CR 120 GM JAR EXT SCH (21:39)
[2016-10-09] VITALS (8 sets, daily range): BP systolic 115–130; BP diastolic 77–89; PULSE 63–69; TEMP 36.6–37.4; O2SAT 85–98
[2016-10-09] MEDS: LEVALBUTEROL 1.25MG/0.5ML NEB INH SCH ×4 (02:18→20:13)
[2016-10-09] MEDS: IPRATROPIUM BROMIDE NEB SOLN 0.02% 2.5 ML VIAL INH SCH ×4 (02:18→20:13)
[2016-10-09 05:11] LABS: HEMATOCRIT 30.2 % (42-52); MEAN CELL VOLUME 83.2 fL (80-100); MEAN CORPUSCULAR HEMOGLOBIN 25.9 pg (25-34); MEAN CORPUSCULAR HGB CONC 31.1 g/dl (32-36); PLATELET COUNT 305 K/uL (130-400); RED BLOOD COUNT 3.63 M/uL (4.7-6.1); WHITE BLOOD COUNT 7.66 K/uL (4.8-10.8)
[2016-10-09 05:31] LABS: INR 1.2 (0.9-1.1); PROTHROMBIN TIME (PATIENT) 12.9 SECONDS (9.0-12.0)
[2016-10-09 05:37] LABS: BUN/CREATININE RATIO 12.2 (10-20); CALCIUM 8.8 mg/dl (8.5-10.1); CREATININE 1.2 mg/dl (0.60-1.40)
[2016-10-09] MEDS: IMIPENEM/CILASTATIN IV 500 MG in D5W 100ML IV SCH ×3 (05:52→17:23)
[2016-10-09] MEDS: HEPARIN SOD 5000 UNIT/0.5 ML CARP SQ SCH ×3 (06:02→22:01)
[2016-10-09] MEDS: INSULIN ASPART 100 UNITS/ML 3 ML PEN SC SCH ×4 (08:00→21:00)
[2016-10-09] MEDS: POTASSIUM CHLR 20 MEQ / WTR 20 MEQ in PREMIXED WATER 100 ML IV SCH ×2 (09:27→12:28)
[2016-10-09] MEDS: SOTALOL HCL 80 MG TAB PO SCH ×2 (09:28→20:33)
[2016-10-09] MEDS: PANTOprazole SOD 40 MG TAB PO SCH (09:28)
[2016-10-09] MEDS: FUROSEMIDE 40 MG TAB PO SCH (09:29)
[2016-10-09] MEDS: AMITRIPTYLINE HCL 10 MG TAB PO SCH ×2 (09:29→20:34)
[2016-10-09] MEDS: DULOXETINE HCL 60 MG CAP PO SCH (09:29)
[2016-10-09] MEDS: ROSUVASTATIN CALCIUM 10 MG TAB PO SCH (09:29)
[2016-10-09] MEDS: LANOLIN/PETROLATUM 30 GM TUBE EXT SCH ×4 (09:30→20:36)
[2016-10-09] MEDS: DICLOFENAC SOD 1% GEL 100 GM TUBE EXT SCH ×3 (09:30→20:40)
[2016-10-09] MEDS: ASPIRIN 81 MG CHEW PO SCH (09:46)
[2016-10-09] MEDS: PREGABALIN 75 MG CAP PO SCH ×2 (09:46→21:01)
--- NOTE | 2016-10-09 09:46 | Surgery Progress Note ---
Surgery Progress Note Date of Service Oct 09, 2016. Subjective Post OP Day: POD # 6 s/p exploratory laparotomy, sigmoid resection and colostomy formation + bowel movement, + diet (tolerating full liquids), + feeling well, + flatus, + pain controlled, No SOB, No chest pain, No complaints, No nausea, No vomiting Objective Vital Signs: Date Time Temp Pulse Resp B/P Pulse Ox O2 Delivery O2 Flow Rate FiO2 10/09/16 07:49 64 20 130/89 95 Nasal Cannula 2.0 10/09/16 07:40 64 16 94 Nasal Cannula 2.0 10/09/16 02:19 63 16 98 Nasal Cannula 3.0 10/08/16 23:34 37.9 59 18 112/69 99 Nasal Cannula 3.0 10/08/16 20:06 69 16 95 Nasal Cannula 2.0 10/08/16 19:30 Nasal Cannula 2.0 10/08/16 15:11 37.6 63 17 126/77 97 Nasal Cannula 2.0 10/08/16 14:28 62 16 94 Nasal Cannula 2.0 10/08/16 10:40 95 Nasal Cannula 2.0 General Appearance: WD/WN, no apparent distress, + obese Head: normocephalic, atraumatic Neck: trachea midline Respiratory/Chest: lungs clear, normal breath sounds, no respiratory distress, no accessory muscle use, + crackles (slight crackle in left upper lung) Cardiovascular: regular rate, rhythm, no murmur Abdomen: non tender, non distended, soft, no organomegaly, + pertinent finding (Ostomy funciting with soft brown stool present) Incision(s): clean, dry, intact, erythema (slight erythema at incision site but improved from previous) Laboratory Results: Results Past 24 Hours Test 10/08/16 11:15 10/08/16 16:50 10/08/16 20:35 10/09/16 04:50 Range/Units Bedside Glucose 162 146 153 70-99 mg/dl White Blood Count 7.66 4.8-10.8 K/uL Red Blood Count 3.63 4.7-6.1 M/uL Hemoglobin 9.4 14.0-18.0 g/dL Hematocrit 30.2 42-52 % Mean Corpuscular Volume 83.2 80-100 fL Mean Corpuscular Hemoglobin 25.9 25-34 pg Mean Corpuscular Hemoglobin Concent 31.1 32-36 g/dl RDW Standard Deviation 53.2 36.4-46.3 fL RDW Coefficient of Variation 17.5 11.5-14.5 % Platelet Count 305 130-400 K/uL Mean Platelet Volume 9.0 7.4-10.4 fL Nucleated RBC Absolute Count (auto) 0.04 0-0 K/uL Nucleated Red Blood Cells % 0.5 % Prothrombin Time 12.9 9.0-12.0 SECONDS Prothromb Time International Ratio 1.2 0.9-1.1 Sodium Level 135 136-145 mmol/L Potassium Level 3.0 3.5-5.1 mmol/L Chloride Level 89 98-107 mmol/L Carbon Dioxide Level 38 21-32 mmol/L Anion Gap 8.0 3-11 mmol/L Blood Urea Nitrogen 15 7-18 mg/dl Creatinine 1.20 0.60-1.40 mg/dl Est Creatinine Clear Calc Drug Dose 60.7 ml/min Estimated GFR () 68.6 Estimated GFR (Non- 59.2 BUN/Creatinine Ratio 12.2 10-20 Random Glucose 117 70-99 mg/dl Calcium Level 8.8 8.5-10.1 mg/dl Test 10/09/16 07:45 Range/Units Bedside Glucose 125 70-99 mg/dl Assessment & Plan POD # 6 s/p exploratory laparotomy with sigmoid resection and creation of colostomy and Saniya Pouch - Vital signs stable - tolerating full liquids - + ostomy output - abdominal examination benign - H&H 9.4/30.2, stable Plan: advance diet to soft diet Continue current management established by Medicine will continue to monitor I have discussed this patient with Dr. Garcia who is in agreement with above stated findings and treatment plan.
[2016-10-09] MEDS: HYDROmorphone INJ 0.5 MG/0.5 ML SYR IV PRN ×2 (11:16→22:04)
--- NOTE | 2016-10-09 16:26 | PULMONARY PROGRESS NOTE ---
DATE: 10/09/2016 TIME: 4:10 p.m. SUBJECTIVE: The patient offers no complaints. He is not the best historian, however. He denies cough or shortness of breath. He denies abdominal pain. He states he was eating solid food today. OBJECTIVE: GENERAL: The patient looks comfortable. He was sleeping when I came into the room, but he awakened readily. VITAL SIGNS: Current temperature is 36.9. He had a low grade fever earlier today of 37.4. The heart rate is 65 per minute. Blood pressure is 128/77. HEART: The rhythm was regular. LUNGS: Kaur revealed few scattered rhonchi bilaterally posteriorly. Saturation is 98% on 2 liters. ABDOMEN: Has good bowel sounds. It is obese. There is a colostomy in place. He still has peripheral edema in the lower extremities. LABORATORY DATA: White count today is 7.66. Hemoglobin is 9.4. Platelets are 305,000. INR is 1.2. Electrolytes show sodium 135, potassium 3.0, chloride 89, and bicarbonate 38. BUN is 15 with a creatinine of 1.2. Blood sugar was as high as 174. IMPRESSIONS: 1. Respiratory failure - chronic. 2. Sigmoid volvulus with resection. 3. Hypoventilatory changes. 4. Probable obstructive sleep apnea. 5. Anemia. RECOMMENDATIONS: The patient seems clinically fairly stable. I do not know if he has been wearing his BiPAP. I could not obtain that information. He appears to need increased potassium supplementation. The patient has chronic elevation of his PCO2.
--- NOTE | 2016-10-09 16:37 | Progress Note ---
Subjective Date of Service: Oct 09, 2016. Subjective Pt evaluation today including: conversation w/ patient, physical exam, lab review, review of studies, review of inpatient medication list Saw/examined the patient in room 361 He's doing well, no problems/tolerating soft diet No abdominal pain Problem List Medical Problems: (1) Altered mental status Status: Acute (2) Altered mental status Status: Acute (3) Altered mental status Status: Acute (4) Altered mental status Status: Acute (5) Diffuse abdominal pain Status: Acute (6) Dislodged Cantrell catheter Status: Acute (7) Fever Status: Acute (8) Hematuria Status: Acute (9) Hyperglycemia Status: Acute (10) Hypomagnesemia Status: Acute (11) Hypoxia Status: Acute (12) Hypoxia Status: Acute (13) Lactic acid acidosis Status: Acute (14) Left lower lobe pneumonia Status: Acute (15) Leukocytosis Status: Acute (16) Pneumonia Status: Acute (17) Renal insufficiency Status: Acute (18) Sepsis Status: Acute (19) Sigmoid volvulus Status: Acute (20) Sigmoid volvulus Status: Acute (21) UTI (urinary tract infection) Status: Acute (22) UTI (urinary tract infection) Status: Acute (23) UTI (urinary tract infection) Status: Acute (24) UTI (urinary tract infection) Status: Acute (25) UTI (urinary tract infection) Status: Acute Review of Systems Constitutional: + weakness, No chills, No fever Respiratory: No shortness of breath Cardiac: No chest pain Abdomen: No nausea, No pain, No vomiting Medications Current Inpatient Medications Medications (Trade) Dose Ordered Sig/Betzy Route Start Time Stop Time Status Last Admin Dose Admin Glucose (Glucose 40% Gel) 15-30 GRAMS 15 GRAMS... UD PRN PO 09/28/16 23:00 10/28/16 22:59 Glucose (Glucose Chew Tab) 4-8 Tablets 4 Tabl... UD PRN PO 09/28/16 23:00 10/28/16 22:59 Dextrose (Dextrose 50% 50ML Syringe) 25-50ML OF 50% DW IV FOR... UD PRN IV 09/28/16 23:00 10/28/16 22:59 Glucagon (Glucagon Inj) 1 mg UD PRN SQ 09/28/16 23:00 10/28/16 22:59 Ondansetron HCl 4 mg 4 mg Q6H PRN IV 09/28/16 23:00 10/28/16 22:59 10/06/16 03:07 4 MG Promethazine HCl/ Sodium Chloride (Phenergan Inj/ Nss 50ml) 50.5 ml @ 204 mls/hr Q6H PRN IV 09/28/16 23:00 10/28/16 22:59 Aspirin (Aspirin Chew) 81 mg QAM PO 09/29/16 09:00 10/29/16 08:59 Future hold 10/09/16 09:46 81 MG Multi-Ingredient Ointment (Eucerin Unscented Cr) 1 appln BID PRN EXT 09/30/16 13:15 10/30/16 13:14 Duloxetine HCl (Cymbalta Cap) 60 mg QAM PO 10/01/16 09:00 10/31/16 08:59 Future hold 10/09/16 09:29 60 MG Magnesium Hydroxide (Milk Of Magnesia Susp) 30 ml UD PRN PO 09/30/16 17:45 10/30/16 17:44 Future hold Sodium Chloride (Young Nasal [place]) 2 sprays Q4H PRN SABRINA 09/30/16 17:45 10/30/16 17:44 Multi-Ingredient Ointment (Eucerin Unscented Cr) 1 appln HS EXT 09/30/16 21:00 10/30/16 20:59 10/08/16 21:39 1 APPLN Multi-Ingredient Ointment (Desitin Oint) 1 gm BID EXT 09/30/16 21:00 10/30/16 20:59 10/09/16 09:30 1 GM Imipenem/ Cilastatin Sodium 1 ea 1 ea UD PRN N/A 10/02/16 11:00 11/01/16 10:59 Imipenem/ Cilastatin Sodium/ Dextrose (Primaxin Iv/D5 100ml) 110 ml @ 110 mls/hr Q6@0000,0600,1200,1800 IV 10/02/16 12:00 10/12/16 11:59 10/09/16 12:23 110 MLS/HR Hydromorphone HCl 0.5 mg 0.5 mg Q4 PRN IV 10/03/16 18:15 10/17/16 18:14 10/09/16 11:16 0.5 MG Acetaminophen/ Empty Bag (Ofirmev IV/ Empty Iv Bag 100ml) 65 ml @ 260 mls/hr Q6H PRN IV 10/03/16 21:45 11/02/16 21:44 10/06/16 03:11 260 MLS/HR Metolazone (Zaroxolyn Tab) 2.5 mg TuFr@0830 PO 10/07/16 08:30 11/06/16 08:29 10/07/16 08:23 2.5 MG Heparin Sodium (Porcine) (Heparin Sq 5000 Unit/0.5ml) 5,000 unit Q8 SQ 10/05/16 14:00 11/04/16 13:59 10/09/16 06:02 5,000 UNIT Ipratropium [place] (Atrovent 0.02% 0.5MG/2.5ML Neb) 0.5 mg Q6R INH 10/05/16 21:00 11/04/16 20:59 10/09/16 14:07 0.5 MG Levalbuterol (Xopenex 1.25MG/ 0.5ML Neb) 1.25 mg Q6R INH 10/05/16 21:00 11/04/16 20:59 10/09/16 14:07 1.25 MG Heparin Sodium (Porcine) (Heparin 10 Unit/ ml 5 ml Flush) 5 ml PRN PRN FLUSH 10/06/16 00:45 11/05/16 00:44 10/09/16 14:49 5 ML Insulin Aspart (novoLOG ASPART) SLIDING SCALE If C... ACHS SC 10/06/16 11:00 11/04/16 11:59 Metoprolol Tartrate (Lopressor Iv) 5 mg Q6 PRN IV 10/06/16 12:00 11/05/16 11:59 Furosemide (Lasix Tab) 40 mg QAM PO 10/07/16 09:00 11/06/16 08:59 10/09/16 09:29 40 MG Pantoprazole Sodium (Protonix Tab) 40 mg QAM PO 10/07/16 09:00 11/06/16 08:59 10/09/16 09:28 40 MG Acetaminophen (Tylenol Tab) 650 mg Q4H PRN PO 10/06/16 10:45 11/05/16 10:44 Diclofenac Sodium (Voltaren 1% Top Gel) 1 appln TID EXT 10/06/16 14:00 11/05/16 13:59 10/09/16 13:34 1 APPLN Rosuvastatin Calcium (Crestor Tab) 10 mg DAILY PO 10/07/16 09:00 11/06/16 08:59 10/09/16 09:29 10 MG Pregabalin (Lyrica Cap) 75 mg BID PO 10/06/16 11:00 11/05/16 10:59 10/09/16 09:46 75 MG Sotalol HCl (Betapace Tab) 80 mg BID PO 10/06/16 11:15 11/05/16 11:14 10/09/16 09:28 80 MG Amitriptyline HCl (Elavil Tab) 10 mg BID PO 10/06/16 21:00 11/05/16 20:59 10/09/16 09:29 10 MG Warfarin Sodium (Coumadin Tab) 4 mg DAILY@16 PO 10/07/16 16:00 11/06/16 15:59 10/08/16 15:28 4 MG Objective Vital Signs Date Time Temp Pulse Resp B/P Pulse Ox O2 Delivery O2 Flow Rate FiO2 10/09/16 15:25 36.9 65 16 128/77 98 Nasal Cannula 2.0 10/09/16 14:07 69 16 94 Nasal Cannula 2.0 10/09/16 10:04 37.4 10/09/16 07:49 64 20 130/89 95 Nasal Cannula 2.0 10/09/16 07:45 Nasal Cannula 2.0 10/09/16 07:40 64 16 94 Nasal Cannula 2.0 10/09/16 02:19 63 16 98 Nasal Cannula 3.0 10/08/16 23:34 37.9 59 18 112/69 99 Nasal Cannula 3.0 10/08/16 20:06 69 16 95 Nasal Cannula 2.0 10/08/16 19:30 Nasal Cannula 2.0 Physical Exam Respiratory/Chest: no respiratory distress, no accessory muscle use Abdomen: normal bowel sounds, non tender, soft, + pertinent finding (+colostomy ) Extremities: normal inspection, no pedal edema Neurologic/Psychiatric: alert, normal mood/affect, oriented x 3 Laboratory Results Last 24 Hours Test 10/08/16 16:50 10/08/16 20:35 10/09/16 04:50 10/09/16 07:45 Bedside Glucose 146 mg/dl 153 mg/dl 125 mg/dl White Blood Count 7.66 K/uL Red Blood Count 3.63 M/uL Hemoglobin 9.4 g/dL Hematocrit 30.2 % Mean Corpuscular Volume 83.2 fL Mean Corpuscular Hemoglobin 25.9 pg Mean Corpuscular Hemoglobin Concent 31.1 g/dl RDW Standard Deviation 53.2 fL RDW Coefficient of Variation 17.5 % Platelet Count 305 K/uL Mean Platelet Volume 9.0 fL Nucleated RBC Absolute Count (auto) 0.04 K/uL Nucleated Red Blood Cells % 0.5 % Prothrombin Time 12.9 SECONDS Prothromb Time International Ratio 1.2 Sodium Level 135 mmol/L Potassium Level 3.0 mmol/L Chloride Level 89 mmol/L Carbon Dioxide Level 38 mmol/L Anion Gap 8.0 mmol/L Blood Urea Nitrogen 15 mg/dl Creatinine 1.20 mg/dl Est Creatinine Clear Calc Drug Dose 60.7 ml/min Estimated GFR () 68.6 Estimated GFR (Non- 59.2 BUN/Creatinine Ratio 12.2 Random Glucose 117 mg/dl Calcium Level 8.8 mg/dl Test 10/09/16 11:18 Bedside Glucose 174 mg/dl Assessment and Plan This is a 76 year old male with PMH of 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 of atrial fibrillation on anticoagulation, recurrent lower extremity cellulitis, hx. of discitis, presents with recurrent sigmoid volvulus Acute Respiratory Failure - improved 10/09 at baseline No other issues with his respirations chronic elevation of PCO2 appreciate pulm input 10/08 seems to be at baseline did not use bipap last night, will discuss with patient otherwise, continue current medications 10/07 His respiratory failure began prior to his surgery (10/04) post-operatively - he required intubation multifactorial in nature - likely obesity-hypoventilation, atelectatic changes seen on CXR due to body habitus, possibly volume overload with acute diastolic CHF patient has been extubated (on 10/05) currently saturating well on 2L O2 via nasal cannula we will continue nocturnal Bipap and Bipap PRN ABG from this AM (10/07) does show some hypercapnia and hypoxia, though normal pH continue nebulizers as needed incentive spirometry encouraged appreciate pulmonary input Recurrent Sigmoid Volvulus s/p Sigmoid Colectomy 10/09 tolerating soft diet can d/c in AM to [facility] if okay with surgery 10/08 doing well s/p sigmoid colectomy tolerating full liquids plan is to advance as per general surgery d/c when tolerating PO intake 10/07 presented in July with similar presentation at that time, he had a colonoscopy/rectal tube to decompress the volvulus at that time they recommended surgery, but he refused, knowing that recurrence was a possibility presented again from [facility] with altered mental status and abdominal distention Abdominal CT was performed showing recurrent volvulus decompression again performed as per GI s/p sigmoid colectomy on (10/03) - colostomy formed and functioning well tolerating clears appreciate surgery input - advance when okay with surgery Acute Blood Loss Anemia 10/07 s/p 2 units of PRBCs post-operatively at its noemi; Hgb down to 7.7 on 10/05 Currently, Hgb > 9; asymptomatic monitor H/H and transfuse PRN Metabolic Encephalopathy secondary to Recurrent UTI in the setting of Neurogenic Bladder and Indwelling Catheter 10/09 Last dose on Thursday of Invanz 10/07 growing drug-resistant E. coli and Pseudomonas repeat culture on 10/04 negative Currently on Invanz day #6 Recurrent b/l LE cellulitis - resolved patient with chronic venous stasis issues has had multiple episodes of cellulitis currently, lower extremities look improved with no significant erythema or warmth Stage II Sacral Pressure Ulcer present on admission appreciate wound care consultation daily dressing changes Paroxysmal A. Fib Coumadin has since been restarted; INR = 1.1, monitor daily continue Sotalol; currently NSR Diastolic CHF has had respiratory distress has been diuresed throughout hospital stay currently receiving PO Lasix 40mg daily DM2 hold oral agents insulin sliding scale will monitor BSGs with changing diet HTN Norvasc held blood pressures are stable, monitor BP DVT ppx subq heparin Coumadin restarted; monitor INR DNR POA Darius Krishnamurthyr - Cousin contact number [phone]
[2016-10-09] MEDS: WARFARIN SOD 4 MG TAB PO SCH (17:17)
[2016-10-09] MEDS: ACETAMINOPHEN 325 MG TAB PO PRN (20:31)
[2016-10-09] MEDS: EUCERIN CR 120 GM JAR EXT SCH (20:35)
[2016-10-10] VITALS (8 sets, daily range): BP systolic 118–125; BP diastolic 75–80; PULSE 59–68; TEMP 36.6–36.8; O2SAT 92–96
[2016-10-10] MEDS: IMIPENEM/CILASTATIN IV 500 MG in D5W 100ML IV SCH ×4 (01:38→17:14)
[2016-10-10] MEDS: IPRATROPIUM BROMIDE NEB SOLN 0.02% 2.5 ML VIAL INH SCH ×3 (01:54→14:30)
[2016-10-10] MEDS: LEVALBUTEROL 1.25MG/0.5ML NEB INH SCH ×3 (01:54→14:30)
[2016-10-10 05:34] LABS: HEMATOCRIT 29.8 % (42-52); MEAN CELL VOLUME 84.4 fL (80-100); MEAN CORPUSCULAR HEMOGLOBIN 26.3 pg (25-34); MEAN CORPUSCULAR HGB CONC 31.2 g/dl (32-36); MEAN PLATELET VOLUME 9.4 fL (7.4-10.4); PLATELET COUNT 286 K/uL (130-400); RED BLOOD COUNT 3.53 M/uL (4.7-6.1); WHITE BLOOD COUNT 7.79 K/uL (4.8-10.8)
[2016-10-10] MEDS: HEPARIN SOD 5000 UNIT/0.5 ML CARP SQ SCH ×2 (05:48→13:40)
[2016-10-10 05:52] LABS: INR 1.3 (0.9-1.1)
[2016-10-10 06:14] LABS: BUN/CREATININE RATIO 13.7 (10-20); CALCIUM 8.4 mg/dl (8.5-10.1); CREATININE 1.4 mg/dl (0.60-1.40); POTASSIUM 2.8 mmol/L (3.5-5.1)
[2016-10-10] MEDS ORDERED: POTASSIUM CHLORIDE 10 MEQ TABCR PO STA (06:28)
--- NOTE | 2016-10-10 06:32 | Progress Note ---
Internal Med Progress Note Date of Service: Oct 10, 2016. Provider Documentation: Made aware by RN of AM labs. CO2 40s increasing serum crea noted low sodium, K AP CO2 retention 2 to [facility] (BIPAP non-compliant as per RN) hyponatremia, hypokalemia poss from overdiuresis baseline ABG vp & general counsel px about need for BIPAP replace K, check mg hold diuretics for now Will relay to AM provider. Vital Signs: Date Time Temp Pulse Resp B/P Pulse Ox O2 Delivery O2 Flow Rate FiO2 10/10/16 07:48 68 16 93 Nasal Cannula 2.0 10/10/16 01:54 60 16 94 Nasal Cannula 2.0 10/09/16 23:37 36.6 65 18 115/77 98 Nasal Cannula 2.0 10/09/16 20:45 Nasal Cannula 2.0 10/09/16 20:14 68 16 85 Room Air 10/09/16 15:25 36.9 65 16 128/77 98 Nasal Cannula 2.0 10/09/16 14:07 69 16 94 Nasal Cannula 2.0 10/09/16 10:04 37.4 Lab Results: Results Past 24 Hours Test 10/09/16 11:18 10/09/16 16:40 10/09/16 20:43 10/10/16 05:15 Range/Units Bedside Glucose 174 122 173 70-99 mg/dl White Blood Count 7.79 4.8-10.8 K/uL Red Blood Count 3.53 4.7-6.1 M/uL Hemoglobin 9.3 14.0-18.0 g/dL Hematocrit 29.8 42-52 % Mean Corpuscular Volume 84.4 80-100 fL Mean Corpuscular Hemoglobin 26.3 25-34 pg Mean Corpuscular Hemoglobin Concent 31.2 32-36 g/dl RDW Standard Deviation 54.3 36.4-46.3 fL RDW Coefficient of Variation 17.5 11.5-14.5 % Platelet Count 286 130-400 K/uL Mean Platelet Volume 9.4 7.4-10.4 fL Nucleated RBC Absolute Count (auto) 0.02 0-0 K/uL Nucleated Red Blood Cells % 0.2 % Prothrombin Time 14.0 9.0-12.0 SECONDS Prothromb Time International Ratio 1.3 0.9-1.1 Sodium Level 132 136-145 mmol/L Potassium Level 2.8 3.5-5.1 mmol/L Chloride Level 85 98-107 mmol/L Carbon Dioxide Level 41 21-32 mmol/L Anion Gap 6.0 3-11 mmol/L Blood Urea Nitrogen 19 7-18 mg/dl Creatinine 1.40 0.60-1.40 mg/dl Est Creatinine Clear Calc Drug Dose 52.0 ml/min Estimated GFR () 57.0 Estimated GFR (Non- 49.1 BUN/Creatinine Ratio 13.7 10-20 Random Glucose 123 70-99 mg/dl Calcium Level 8.4 8.5-10.1 mg/dl Magnesium Level 1.6 1.8-2.4 mg/dl Test 10/10/16 06:48 Range/Units
[2016-10-10 07:06] LABS: ARTERIAL BLD GAS O2 SATURATION 95.2 % (90-95); ARTERIAL BLOOD GAS BASE EXCESS 13.6 mEq/L (-9-1.8); ARTERIAL BLOOD GAS HCO3 41 mmol/L (19-24); ARTERIAL BLOOD GAS PO2 86 mm/Hg (80-95)
[2016-10-10] MEDS: INSULIN ASPART 100 UNITS/ML 3 ML PEN SC SCH ×3 (08:00→17:14)
[2016-10-10 08:20] LABS: ALLEN TEST POS (POS); O2 ADMINISTRATION 2 L
[2016-10-10] MEDS ORDERED: POTASSIUM CHLORIDE 10 MEQ TABCR PO ONE (08:30)
--- NOTE | 2016-10-10 08:56 | Surgery Progress Note ---
Surgery Progress Note Date of Service Oct 10, 2016. Subjective Post OP Day: POD # 7 s/p ex lap with sigmod resection and formation of colostomy Objective Vital Signs: Date Time Temp Pulse Resp B/P Pulse Ox O2 Delivery O2 Flow Rate FiO2 10/10/16 08:00 36.6 59 20 118/79 96 Nasal Cannula 2.0 10/10/16 07:48 68 16 93 Nasal Cannula 2.0 10/10/16 01:54 60 16 94 Nasal Cannula 2.0 10/09/16 23:37 36.6 65 18 115/77 98 Nasal Cannula 2.0 10/09/16 20:45 Nasal Cannula 2.0 10/09/16 20:14 68 16 85 Room Air 10/09/16 15:25 36.9 65 16 128/77 98 Nasal Cannula 2.0 10/09/16 14:07 69 16 94 Nasal Cannula 2.0 10/09/16 10:04 37.4 General Appearance: WD/WN, no apparent distress, + obese Head: normocephalic, atraumatic Neck: trachea midline Respiratory/Chest: no respiratory distress, no accessory muscle use, + crackles , + rales, + pertinent finding (patient has nebulizer treatment on currently) Cardiovascular: regular rate, rhythm, no murmur Abdomen: non tender, non distended, soft, no organomegaly, + pertinent finding (ostomy pink and funciting, air and soft stool in ostomy bag) Incision(s): clean, dry, intact, no drainage Extremities: + pedal edema Laboratory Results: Results Past 24 Hours Test 10/09/16 11:18 10/09/16 16:40 10/09/16 20:43 10/10/16 05:15 Range/Units Bedside Glucose 174 122 173 70-99 mg/dl White Blood Count 7.79 4.8-10.8 K/uL Red Blood Count 3.53 4.7-6.1 M/uL Hemoglobin 9.3 14.0-18.0 g/dL Hematocrit 29.8 42-52 % Mean Corpuscular Volume 84.4 80-100 fL Mean Corpuscular Hemoglobin 26.3 25-34 pg Mean Corpuscular Hemoglobin Concent 31.2 32-36 g/dl RDW Standard Deviation 54.3 36.4-46.3 fL RDW Coefficient of Variation 17.5 11.5-14.5 % Platelet Count 286 130-400 K/uL Mean Platelet Volume 9.4 7.4-10.4 fL Nucleated RBC Absolute Count (auto) 0.02 0-0 K/uL Nucleated Red Blood Cells % 0.2 % Prothrombin Time 14.0 9.0-12.0 SECONDS Prothromb Time International Ratio 1.3 0.9-1.1 Sodium Level 132 136-145 mmol/L Potassium Level 2.8 3.5-5.1 mmol/L Chloride Level 85 98-107 mmol/L Carbon Dioxide Level 41 21-32 mmol/L Anion Gap 6.0 3-11 mmol/L Blood Urea Nitrogen 19 7-18 mg/dl Creatinine 1.40 0.60-1.40 mg/dl Est Creatinine Clear Calc Drug Dose 52.0 ml/min Estimated GFR () 57.0 Estimated GFR (Non- 49.1 BUN/Creatinine Ratio 13.7 10-20 Random Glucose 123 70-99 mg/dl Calcium Level 8.4 8.5-10.1 mg/dl Magnesium Level 1.6 1.8-2.4 mg/dl Test 10/10/16 06:48 Range/Units Arterial Blood pH 7.40 7.35-7.45 Arterial Blood Partial Pressure CO2 67 35-46 mmHg Arterial Blood Partial Pressure O2 86 80-95 mm/Hg Arterial Blood HCO3 41 19-24 mmol/L Arterial Blood Oxygen Saturation 95.2 90-95 % Arterial Blood Base Excess 13.6 -9-1.8 mEq/L Arterial Blood Gas Delivery 2 L Junior Test POS POS Assessment & Plan POD # 7 s/p exploratory laparotomy with sigmoid resection and creation of colostomy and Saniya Pouch - Vital signs stable - tolerating low fat diet - + ostomy output - abdominal examination benign - H&H stable Plan: Continue low fat diet Continue current management established by Medicine from surgical standpoint patient may be discharged, ostomy functioning well Dr. Garcia has seen and examined patient agrees with assessment and plan.
[2016-10-10] MEDS: PANTOprazole SOD 40 MG TAB PO SCH (09:11)
[2016-10-10] MEDS: AMITRIPTYLINE HCL 10 MG TAB PO SCH (09:11)
[2016-10-10] MEDS: ROSUVASTATIN CALCIUM 10 MG TAB PO SCH (09:11)
[2016-10-10] MEDS: DULOXETINE HCL 60 MG CAP PO SCH (09:11)
[2016-10-10] MEDS: ASPIRIN 81 MG CHEW PO SCH (09:12)
[2016-10-10] MEDS: SOTALOL HCL 80 MG TAB PO SCH (09:12)
[2016-10-10] MEDS: ACETAMINOPHEN 325 MG TAB PO PRN ×2 (09:13→15:10)
[2016-10-10] MEDS: PREGABALIN 75 MG CAP PO SCH (09:13)
[2016-10-10] MEDS: LANOLIN/PETROLATUM 30 GM TUBE EXT SCH ×2 (09:14)
[2016-10-10] MEDS: DICLOFENAC SOD 1% GEL 100 GM TUBE EXT SCH ×2 (09:14→13:40)
--- NOTE | 2016-10-10 13:47 | PULMONARY PROGRESS NOTE ---
DATE: 10/10/2016 TIME: 1:05 p.m. SUBJECTIVE: The patient offers no complaints. He denies cough or shortness of breath. His appetite is good. He is not complaining of any surgical pain. Reportedly, as per nursing staff, he has been refusing BiPAP. PHYSICAL EXAMINATION: GENERAL: The patient appears comfortable at rest. VITAL SIGNS: Temperature is 36.7. Heart rate is 60 beats per minute. The rhythm is regular. Blood pressure is 124/80. Respiratory rate was 16 breaths per minute. LUNGS: Lung ramos revealed mild decreased breath sounds at the bases with just a few scattered rales. Oxygen saturation was 92% on 2 liters. ABDOMEN: Remains obese. There is a colostomy in place. Good bowel sounds were heard. EXTREMITIES: Wrapped and remain edematous. The patient tells me that he has not been able to walk or bear weight for about 3 years because of a back problem. LABORATORY DATA: White count today is 7.79. Hemoglobin is 9.3. Platelets are 286,000. INR today is 1.3. Blood gas done this morning showed a pH of 7.40 with a PCO2 of 67 and a PO2 of 86, done on 2 liters. This reflects a compensated respiratory acidosis. However, the PCO2 was higher than it had been previously. This was done in the very tailor's aide hours and the patient may well have been asleep. Thus, we could anticipate some worsening of his PCO2 at that time of day. He has had elevated carbon dioxide chronically. Electrolytes show sodium 132, potassium 2.8, chloride 85, and bicarb 41. BUN is 19 with a creatinine of 1.4. The patient needs increased potassium obviously. IMPRESSIONS: 1. Chronic respiratory failure with hypercarbia and hypoxia. 2. Obstructive sleep apnea is likely. 3. Status post surgical repair of sigmoid volvulus. 4. Hypoventilatory changes on x-ray. 5. Anemia. 6. Hypokalemia. COMMENTS: The patient's respiratory status is relatively stable. I do not believe there is much we can do about his pCO2 levels if he will not wear BiPAP and this has been tried for several nights. He is maintaining his pH normality. As much as possible, it would be good to get the patient out of bed if this can be done. He does need more potassium supplementation. I would continue his nebulizer treatments even upon discharge. Because he has a high CO2 level, we ideally should be content with O2 saturations about 90% or thereabouts. If we make his oxygen levels excessively high, this will not stimulate ventilation at all. The alkalosis probably is related to the diuretics and the metolazone has been put on hold. The patient I believe is still doing incentive spirometry and should be encouraged to do so. I have no other suggestions at present. We will see the patient again only if specifically requested.
--- NOTE | 2016-10-10 14:57 | Progress Note ---
Subjective Date of Service: Oct 10, 2016. Subjective Pt evaluation today including: conversation w/ patient, physical exam, lab review, review of studies, review of inpatient medication list Saw/examined the patient in room 361 He is doing well, awake/alert, oriented x 3 Eating well, tolerating PO diet; no pain, nausea/vomiting Problem List Medical Problems: (1) Altered mental status Status: Acute (2) Altered mental status Status: Acute (3) Altered mental status Status: Acute (4) Altered mental status Status: Acute (5) Diffuse abdominal pain Status: Acute (6) Dislodged Cantrell catheter Status: Acute (7) Fever Status: Acute (8) Hematuria Status: Acute (9) Hyperglycemia Status: Acute (10) Hypomagnesemia Status: Acute (11) Hypoxia Status: Acute (12) Hypoxia Status: Acute (13) Lactic acid acidosis Status: Acute (14) Left lower lobe pneumonia Status: Acute (15) Leukocytosis Status: Acute (16) Pneumonia Status: Acute (17) Renal insufficiency Status: Acute (18) Sepsis Status: Acute (19) Sigmoid volvulus Status: Acute (20) Sigmoid volvulus Status: Acute (21) UTI (urinary tract infection) Status: Acute (22) UTI (urinary tract infection) Status: Acute (23) UTI (urinary tract infection) Status: Acute (24) UTI (urinary tract infection) Status: Acute (25) UTI (urinary tract infection) Status: Acute Review of Systems Abdomen: No nausea, No pain, No vomiting Medications Current Inpatient Medications Medications (Trade) Dose Ordered Sig/Betzy Route Start Time Stop Time Status Last Admin Dose Admin Glucose (Glucose 40% Gel) 15-30 GRAMS 15 GRAMS... UD PRN PO 09/28/16 23:00 10/28/16 22:59 Glucose (Glucose Chew Tab) 4-8 Tablets 4 Tabl... UD PRN PO 09/28/16 23:00 10/28/16 22:59 Dextrose (Dextrose 50% 50ML Syringe) 25-50ML OF 50% DW IV FOR... UD PRN IV 09/28/16 23:00 10/28/16 22:59 Glucagon (Glucagon Inj) 1 mg UD PRN SQ 09/28/16 23:00 10/28/16 22:59 Ondansetron HCl 4 mg 4 mg Q6H PRN IV 09/28/16 23:00 10/28/16 22:59 10/06/16 03:07 4 MG Promethazine HCl/ Sodium Chloride (Phenergan Inj/ Nss 50ml) 50.5 ml @ 204 mls/hr Q6H PRN IV 09/28/16 23:00 10/28/16 22:59 Aspirin (Aspirin Chew) 81 mg QAM PO 09/29/16 09:00 10/29/16 08:59 Future hold 10/10/16 09:12 81 MG Multi-Ingredient Ointment (Eucerin Unscented Cr) 1 appln BID PRN EXT 09/30/16 13:15 10/30/16 13:14 Duloxetine HCl (Cymbalta Cap) 60 mg QAM PO 10/01/16 09:00 10/31/16 08:59 Future hold 10/10/16 09:11 60 MG Magnesium Hydroxide (Milk Of Magnesia Susp) 30 ml UD PRN PO 09/30/16 17:45 10/30/16 17:44 Future hold Sodium Chloride ([place] Nasal [place]) 2 sprays Q4H PRN SABRINA 09/30/16 17:45 10/30/16 17:44 Multi-Ingredient Ointment (Eucerin Unscented Cr) 1 appln HS EXT 09/30/16 21:00 10/30/16 20:59 10/09/16 20:35 1 APPLN Multi-Ingredient Ointment (Desitin Oint) 1 gm BID EXT 09/30/16 21:00 10/30/16 20:59 10/10/16 09:14 1 GM Imipenem/ Cilastatin Sodium 1 ea 1 ea UD PRN N/A 10/02/16 11:00 11/01/16 10:59 Imipenem/ Cilastatin Sodium/ Dextrose (Primaxin Iv/D5 100ml) 110 ml @ 110 mls/hr Q6@0000,0600,1200,1800 IV 10/02/16 12:00 10/12/16 11:59 10/10/16 11:39 110 MLS/HR Hydromorphone HCl 0.5 mg 0.5 mg Q4 PRN IV 10/03/16 18:15 10/17/16 18:14 10/09/16 22:04 0.5 MG Acetaminophen/ Empty Bag (Ofirmev IV/ Empty Iv Bag 100ml) 65 ml @ 260 mls/hr Q6H PRN IV 10/03/16 21:45 11/02/16 21:44 10/06/16 03:11 260 MLS/HR Metolazone (Zaroxolyn Tab) 2.5 mg TuFr@0830 PO 10/07/16 08:30 11/06/16 08:29 Future Hold 10/07/16 08:23 2.5 MG Heparin Sodium (Porcine) (Heparin Sq 5000 Unit/0.5ml) 5,000 unit Q8 SQ 10/05/16 14:00 11/04/16 13:59 10/10/16 13:40 5,000 UNIT Ipratropium [place] (Atrovent 0.02% 0.5MG/2.5ML Neb) 0.5 mg Q6R INH 10/05/16 21:00 11/04/16 20:59 10/10/16 14:30 0.5 MG Levalbuterol (Xopenex 1.25MG/ 0.5ML Neb) 1.25 mg Q6R INH 10/05/16 21:00 11/04/16 20:59 10/10/16 14:30 1.25 MG Heparin Sodium (Porcine) (Heparin 10 Unit/ ml 5 ml Flush) 5 ml PRN PRN FLUSH 10/06/16 00:45 11/05/16 00:44 10/10/16 13:09 5 ML Insulin Aspart (novoLOG ASPART) SLIDING SCALE If C... ACHS SC 10/06/16 11:00 11/04/16 11:59 Metoprolol Tartrate (Lopressor Iv) 5 mg Q6 PRN IV 10/06/16 12:00 11/05/16 11:59 Furosemide (Lasix Tab) 40 mg QAM PO 10/07/16 09:00 11/06/16 08:59 Future Hold 10/09/16 09:29 40 MG Pantoprazole Sodium (Protonix Tab) 40 mg QAM PO 10/07/16 09:00 11/06/16 08:59 10/10/16 09:11 40 MG Acetaminophen (Tylenol Tab) 650 mg Q4H PRN PO 10/06/16 10:45 11/05/16 10:44 10/10/16 09:13 650 MG Diclofenac Sodium (Voltaren 1% Top Gel) 1 appln TID EXT 10/06/16 14:00 11/05/16 13:59 10/10/16 13:40 1 APPLN Rosuvastatin Calcium (Crestor Tab) 10 mg DAILY PO 10/07/16 09:00 11/06/16 08:59 10/10/16 09:11 10 MG Pregabalin (Lyrica Cap) 75 mg BID PO 10/06/16 11:00 11/05/16 10:59 10/10/16 09:13 75 MG Sotalol HCl (Betapace Tab) 80 mg BID PO 10/06/16 11:15 11/05/16 11:14 10/10/16 09:12 80 MG Amitriptyline HCl (Elavil Tab) 10 mg BID PO 10/06/16 21:00 11/05/16 20:59 10/10/16 09:11 10 MG Warfarin Sodium (Coumadin Tab) 4 mg DAILY@16 PO 10/07/16 16:00 11/06/16 15:59 10/09/16 17:17 4 MG Potassium Chloride (Klor-Con M10) 40 meq DAILY PO 10/11/16 09:00 11/10/16 08:59 Objective Vital Signs Date Time Temp Pulse Resp B/P Pulse Ox O2 Delivery O2 Flow Rate FiO2 10/10/16 14:30 66 16 96 Nasal Cannula 2.0 10/10/16 11:52 36.7 63 14 124/80 92 Nasal Cannula 2.0 10/10/16 11:07 96 Nasal Cannula 2.0 10/10/16 08:10 Nasal Cannula 2.0 10/10/16 08:00 36.6 59 20 118/79 96 Nasal Cannula 2.0 10/10/16 07:48 68 16 93 Nasal Cannula 2.0 10/10/16 01:54 60 16 94 Nasal Cannula 2.0 10/09/16 23:37 36.6 65 18 115/77 98 Nasal Cannula 2.0 10/09/16 20:45 Nasal Cannula 2.0 10/09/16 20:14 68 16 85 Room Air 10/09/16 15:25 36.9 65 16 128/77 98 Nasal Cannula 2.0 Physical Exam General Appearance: no apparent distress Respiratory/Chest: lungs clear, normal breath sounds, no respiratory distress, no accessory muscle use Abdomen: non tender, soft, + pertinent finding (+ostomy in place) Extremities: no pedal edema, + pertinent finding (venous stasis changes) Laboratory Results Last 24 Hours Test 10/09/16 16:40 10/09/16 20:43 10/10/16 05:15 10/10/16 06:48 Bedside Glucose 122 mg/dl 173 mg/dl White Blood Count 7.79 K/uL Red Blood Count 3.53 M/uL Hemoglobin 9.3 g/dL Hematocrit 29.8 % Mean Corpuscular Volume 84.4 fL Mean Corpuscular Hemoglobin 26.3 pg Mean Corpuscular Hemoglobin Concent 31.2 g/dl RDW Standard Deviation 54.3 fL RDW Coefficient of Variation 17.5 % Platelet Count 286 K/uL Mean Platelet Volume 9.4 fL Nucleated RBC Absolute Count (auto) 0.02 K/uL Nucleated Red Blood Cells % 0.2 % Prothrombin Time 14.0 SECONDS Prothromb Time International Ratio 1.3 Sodium Level 132 mmol/L Potassium Level 2.8 mmol/L Chloride Level 85 mmol/L Carbon Dioxide Level 41 mmol/L Anion Gap 6.0 mmol/L Blood Urea Nitrogen 19 mg/dl Creatinine 1.40 mg/dl Est Creatinine Clear Calc Drug Dose 52.0 ml/min Estimated GFR () 57.0 Estimated GFR (Non- 49.1 BUN/Creatinine Ratio 13.7 Random Glucose 123 mg/dl Calcium Level 8.4 mg/dl Magnesium Level 1.6 mg/dl Arterial Blood pH 7.40 Arterial Blood Partial Pressure CO2 67 mmHg Arterial Blood Partial Pressure O2 86 mm/Hg Arterial Blood HCO3 41 mmol/L Arterial Blood Oxygen Saturation 95.2 % Arterial Blood Base Excess 13.6 mEq/L Arterial Blood Gas Delivery 2 L Junior Test POS Test 10/10/16 08:34 10/10/16 12:35 Bedside Glucose 133 mg/dl 176 mg/dl Assessment and Plan This is a 76 year old male with PMH of 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 of atrial fibrillation on anticoagulation, recurrent lower extremity cellulitis, hx. of discitis, presents with recurrent sigmoid volvulus Acute Respiratory Failure - improved 10/10 appreciate pulmonology input should use bipap nocturnally otherwise, not much in terms of his chronic CO2 retention 10/09 at baseline No other issues with his respirations chronic elevation of PCO2 appreciate pulm input 10/08 seems to be at baseline did not use bipap last night, will discuss with patient otherwise, continue current medications 10/07 His respiratory failure began prior to his surgery (10/04) post-operatively - he required intubation multifactorial in nature - likely obesity-hypoventilation, atelectatic changes seen on CXR due to body habitus, possibly volume overload with acute diastolic CHF patient has been extubated (on 10/05) currently saturating well on 2L O2 via nasal cannula we will continue nocturnal Bipap and Bipap PRN ABG from this AM (10/07) does show some hypercapnia and hypoxia, though normal pH continue nebulizers as needed incentive spirometry encouraged appreciate pulmonary input Recurrent Sigmoid Volvulus s/p Sigmoid Colectomy 10/10 tolerating diet d/c back to [facility] today 10/09 tolerating soft diet can d/c in AM to [facility] if okay with surgery 10/08 doing well s/p sigmoid colectomy tolerating full liquids plan is to advance as per general surgery d/c when tolerating PO intake 10/07 presented in July with similar presentation at that time, he had a colonoscopy/rectal tube to decompress the volvulus at that time they recommended surgery, but he refused, knowing that recurrence was a possibility presented again from [facility] with altered mental status and abdominal distention Abdominal CT was performed showing recurrent volvulus decompression again performed as per GI s/p sigmoid colectomy on (10/03) - colostomy formed and functioning well tolerating clears appreciate surgery input - advance when okay with surgery Acute Blood Loss Anemia 10/07 s/p 2 units of PRBCs post-operatively at its noemi; Hgb down to 7.7 on 10/05 Currently, Hgb > 9; asymptomatic monitor H/H and transfuse PRN Metabolic Encephalopathy secondary to Recurrent UTI in the setting of Neurogenic Bladder and Indwelling Catheter 10/09 Last dose on Thursday of -[id number]- Primaxin 10/07 growing drug-resistant E. coli and Pseudomonas repeat culture on 10/04 negative Currently on Primaxin day #6/10 Recurrent b/l LE cellulitis - resolved patient with chronic venous stasis issues has had multiple episodes of cellulitis currently, lower extremities look improved with no significant erythema or warmth Stage II Sacral Pressure Ulcer present on admission appreciate wound care consultation daily dressing changes Paroxysmal A. Fib Coumadin has since been restarted; INR = 1.1, monitor daily continue Sotalol; currently NSR Diastolic CHF has had respiratory distress has been diuresed throughout hospital stay currently receiving PO Lasix 40mg daily DM2 hold oral agents insulin sliding scale will monitor BSGs with changing diet HTN Norvasc held blood pressures are stable, monitor BP DVT ppx subq heparin Coumadin restarted; monitor INR DNR WALLACE Mccoy Liner - Cousin contact number [phone]
--- NOTE | 2016-10-10 15:03 | Discharge Instructions ---
Discharge Instructions Date of Service Oct 10, 2016. Admission Reason for Admission: Encephalopathy Discharge Discharge Diagnosis / Problem: Sigmoid Volvulus s/p Sigmoid Colectomy Discharge Goals Goal(s): Decrease discomfort, Improve function, Diagnostic testing, Therapeutic intervention Activity Recommendations Activity Limitations: resume your previous activity . Instructions / Follow-Up Instructions / Follow-Up Continue current medications Low Fat Diet Recheck INR in 2-3 days Current Hospital Diet Patient's current hospital diet: Low Fiber Diet, Diabetes Type 2 Diet Discharge Diet Recommended Diet: Low Fat Diet Procedures Procedures Performed: Sigmoid Colectomy with Formation of Colostomy Pending Studies Studies pending at discharge: no Laboratory Results Hemoglobin A1c Test 09/28/16 22:17 Range/Units Estimated Average Glucose 169 mg/dl Hemoglobin A1c 7.5 H 4.5-5.6 % Medical Emergencies . Who to Call and When: Medical Emergencies: If at any time you feel your situation is an emergency, please call 911 immediately. . Non-Emergent Contact Non-Emergency issues call your: Primary Care Provider . . "Provider Documentation" section prepared by Angela Chung. VTE Core Measure Inpt VTE Proph given/why not?: Unfractionated heparin SQ, Warfarin (Coumadin)
--- NOTE | 2016-10-10 15:06 | Discharge Summary ---
Discharge Summary Date of Service Oct 10, 2016. Discharge Summary Admission Date: Sep 28, 2016 at 22:07 Discharge Date: Oct 10, 2016 Discharge Disposition: [facility] facility Principal Diagnosis: Sigmoid Volvulus s/p Sigmoid Colectomy Medication Reconciliation Continued Medications: Acetaminophen (Tylenol) 325 Mg Tab 650 MG PO Q4H PRN for Pain Acetaminophen (Tylenol) 500 Mg Tab 500 MG PO TID, TAB Alum & Mag Hydrox-Simethicone (Rulox) 1 Yasmeen Yasmeen 30 ML PO QD PRN for Indigestion Amitriptyline HCl (Amitriptyline HCl) 10 Mg Tab 10 MG PO BID Amlodipine (Norvasc) 5 Mg Tab 5 MG PO DAILY, TAB Aspirin (Aspirin Chewable) 81 Mg Chew 81 MG PO QAM, TAB Baclofen (Baclofen) 20 Mg Tab 20 MG PO BID Diclofenac Sodium (Topical) (Diclofenac Sodium) 1 % Gel 1 APPLN TOP TID APPLY DIRECTED TO LEFT SHOULDER Duloxetine HCl (Duloxetine HCl) 60 Mg Cap 60 MG PO QAM Emollient (Moisturizing Cream) 1 Cre Cre 1 APPLN TOP HS APPLY DIRECTED TO DRY FEET Ferrous Sulfate (Ferrous Sulfate) 325 Mg Tab 325 MG PO BIDM Furosemide (Lasix) 20 Mg Tab 20 MG PO QAM, TAB Ipratropium-Albuterol (Duoneb) 3 Ml Nebu 1 TREATMENT INH Q6H for 3 Days, INHA PRESCRIBED 08/09/2016, ROUTINE FOR 3 DAYS Magnesium Hydroxide (Milk Of Magnesia) 30 Ml Susp 30 ML PO UD PRN for Constipation, ML ONE TIME DAILY FOR NO BOWEL MOVEMENT FOR 3 DAYS. ADMINISTER ON THE MORNING OF DAY 4. Metformin Hcl (Glucophage) 1,000 Mg Tab 1000 MG PO BID, TAB Metolazone (Zaroxolyn) 2.5 Mg Tab 2.5 MG PO 2XWK, TAB TAKE THIS MEDICATION EVERY THURSDAY AND THURSDAY Oxycodone HCl (Oxycodone HCl) 5 Mg Tab 5 MG PO Q4H PRN for Moderate to Severe Pain Oxygen (Oxygen) Gas 2 LITERS NA UD PRN for Shortness of Breath Pantoprazole Sodium (Protonix) 40 Mg Tab 40 MG PO QAM, TAB Polyvinyl Alcohol (Artificial Tears) 1.4 % Rossy 2 DROPS OPB UD INSTIL 2 DROPS INTO BOTH EYES AT THESE HOURS: 0900 1100 1300 1500 1700 1900 2100 Potassium Chloride (Potassium Chloride Er) 10 Meq Tab 20 MEQ PO TID, TAB Pregabalin (Lyrica) 75 Mg Cap 75 MG PO BID, CAP Rosuvastatin Calcium (Crestor) 10 Mg Tab 10 MG PO DAILY Saline ([place] Nasal [place]) 0.65 % Spr 2 SPRAYS SABRINA Q4H PRN for DRYNESS Saline ([place] Nasal [place]) 0.65 % Spr 2 SPRAYS SABRINA UD INSTILL 2 SPRAYS INTO EACH NOSTRIL AT THE FOLLOWING HOURS: 0700, 0900, 1100, 1500, 1700, 1900, 2100 AND 2300 HOURS Sennosides-Docusate Sodium ([place]-S) 1 Tab Tab 2 TABS PO DAILY Simethicone (Gas Relief Extra Strength) 125 Mg Chw 125 MG PO TID Sodium Phosphate/Biphosphate (Fleet Enema) Keila 1 EA MA UD PRN for Constipation, BTL DAILY NEEDED ON DAY 6 IF DULCOLAX SUPPOSITORY WAS INEFFECTIVE Sotalol Hcl (Sotalol Hcl) 80 Mg Tab 80 MG PO BID, TAB Warfarin Sod (Jantoven) 4 Mg Tab 4 MG PO 3XWK, TAB Warfarin Sodium (Coumadin) 2 Mg Tab 2 MG PO 4XWK, TAB TAKE 2 MG EVERY THURSDAY,THURSDAY,THURSDAY, THURSDAY OR OTHERWISE DIRECTED TO TAKE BY ANTICOAGULATION CLINIC/MD Zinc Oxide (Topical) (Desitin) 40 % Oin 1 APPLN TOP BID APPLY TO SACRAL AREAS DIRECTED Admission Information Physical Exam (per Admitting): DATE OF ADMISSION: 09/28/2016 PRIMARY CARE PHYSICIAN: Dr. Lilo Davis. History obtained from records and the patient's cousin, Mr. Dagoberto Gould. Limited history obtained secondary to disorientation and lethargic state. Patient is a [facility] resident. HISTORY OF PRESENT ILLNESS: Medical history significant for chronic resp failure home O2 prn as per records, chronic diastolic HF (EF 60-65% 2016), CAD as per records, hypertension, paroxysmal Afib, on anticoagulation, chronic anemia (baseline hemoglobin 11), recurrent UTIs secondary to neurogenic bladder secondary to spinal cord tumor surgery, history of paraplegia, chronic indwelling Cantrell catheter, DM2 on oral meds, Lyme disease sp tx hx of MRSA, history of sigmoid volvulus as per records. Recent confinement last month for sigmoid volvulus, status post colonic decompression w/ rectal tube placement. As per records, chance of twisting another volvulus was high. Patient refused surgery as per note. As per records, last few days, the patient was noted to have LE swelling by staff. Diuretic dose increased. Outpatient chest x-ray a few days ago showed some congestion. Yesterday, the patient noted to have decreased responsiveness, increased confusion, O2 sats 88 on room air. As per cousin, the patient somewhat distractible the last few days. Patient complaining of abdominal discomfort, no nausea, no witnessed vomiting, Belly more distended as per cousin. Patient brought to the Emergency Room. Given Zosyn for possible UTI. MEDICAL HISTORY: As above. PAST SURGICAL HISTORY: Hernia repair, sinus surgery, hip surgery, knee replacement. HOME MEDICATIONS: Include Protonix, artificial tears, potassium chloride, Lyrica, Crestor, sotalol, Fleet enema, Coumadin, loose stools noted, Jantoven, Desitin, Protonix, Senokot-S, DuoNeb, Glucophage, Zaroxolyn, oxycodone, oxygen, baclofen, diclofenac, duloxetine, ferrous sulfate, Lasix, aspirin, Tylenol, amitriptyline, Norvasc. ALLERGIES: AZITHROMYCIN, LATEX, MACROLIDE, KETOLIDE. FAMILY HISTORY: Diabetes, heart disease, brain aneurysm. PERSONAL SOCIAL HISTORY: Past tobacco abuse. No chronic intake of alcoholic beverages. [facility] resident. Closest family is cousin. REVIEW OF SYSTEMS: Could not be reliably obtained. PHYSICAL EXAMINATION: VITAL SIGNS: Blood pressure was noted to be 162/95, later 150/80, pulse rate 69, RR 20, temperature 36.9, sats 94 on 2 liters. GENERAL: Noted to be lethargic, disoriented. No respiratory distress. SKIN: Pallor. HEENT: Pale palpebral conjunctivae. Dry mucosa. NECK: Short neck. CHEST: Rhonchi. HEART: Regular rate and rhythm. ABDOMEN: marked distention, some tenderness. EXTREMITIES: Minimal LE edema. no tenderness NEUROLOGIC: disoriented, restless. Old facial asymmetry. LABORATORY DATA: Hemoglobin 10.9, hematocrit 32.6, white cell count 9.7, platelets 216. Sodium 128, potassium 4.6, chloride 90, CO2 of 30, BUN 20, creatinine 1.3, glucose 137. Lipase was normal. BNP was normal. INR was noted to be 2.1. trop 0 Hemoglobin A1c from 03/[address] head, no acute pathology. Chest x-ray, minimal congestion, atelectasis. CT abdomen and pelvis, destructive process right hip progressing, mild increase distention midsigmoid which may indicate early or developing recurrent volvulus. UA, nitrite positive. ASSESSMENT: 1. Encephalopathy multifactorial : Hyponatremia, clinical dehydration, possibly from recent diuretic changes at the halfway for LE swelling complicated urinary tract infection (chronic indwelling Cantrell 2 to neurogenic bladder secondary to spinal cord tumor surgery) No sepsis. Abdominal pain, distention, possible developing recurrent volvulus on CT. (px refused surgery recommendation as per records) home neuropsychotropic/narcotics/anti-spasmodic meds 2. Chronic diastolic failure. The patient seems to be on dry side. 3. chronic resp failure as per records, px prone to CO2 retention 4. Coronary artery disease as per records. 5. HTN, slightly elevated 6. PAF, NSR, INR tx 7. DM2, on oral meds, well controlled as of recent A1c last year. 8. Acute on chronic anemia. Hemoglobin is up. No overt bleeding for now. 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 Past tobacco abuse. 11. Loose stools, ro Clostridium difficile diarrhea. 12. hx MRSA as per records PLAN: PCU. Hold home diuretics for now. Careful correction of sodium. Follow urine cultures, Zosyn. Hold neuro psychotropic/anti-spasmodic meds until mentation at baseline GI consult RE abdominal distention, possible recurrent volvulus. Patient known to Dr. Rodriguez. stool cdif ISS BG goal 140-180 Patient due for hemoglobin A1c check. Hold Coumadin for now. RE px may need intervention for poss volvulus DVT prophylaxis, SCDs while off Coumadin and INR less than 2. DNR as per cousin/POA, Alexis Dagoberto Liner, contact number [phone]. 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 of atrial fibrillation on anticoagulation, recurrent lower extremity cellulitis, hx. of discitis, presents with recurrent sigmoid volvulus Acute Respiratory Failure - improved 10/10 appreciate pulmonology input should use bipap nocturnally otherwise, not much in terms of his chronic CO2 retention 10/09 at baseline No other issues with his respirations chronic elevation of PCO2 appreciate pulm input 10/08 seems to be at baseline did not use bipap last night, will discuss with patient otherwise, continue current medications 10/07 His respiratory failure began prior to his surgery (10/04) post-operatively - he required intubation multifactorial in nature - likely obesity-hypoventilation, atelectatic changes seen on CXR due to body habitus, possibly volume overload with acute diastolic CHF patient has been extubated (on 10/05) currently saturating well on 2L O2 via nasal cannula we will continue nocturnal Bipap and Bipap PRN ABG from this AM (10/07) does show some hypercapnia and hypoxia, though normal pH continue nebulizers as needed incentive spirometry encouraged appreciate pulmonary input Recurrent Sigmoid Volvulus s/p Sigmoid Colectomy 10/10 tolerating diet d/c back to [facility] today 10/09 tolerating soft diet can d/c in AM to [facility] if okay with surgery 10/08 doing well s/p sigmoid colectomy tolerating full liquids plan is to advance as per general surgery d/c when tolerating PO intake 10/07 presented in July with similar presentation at that time, he had a colonoscopy/rectal tube to decompress the volvulus at that time they recommended surgery, but he refused, knowing that recurrence was a possibility presented again from [facility] with altered mental status and abdominal distention Abdominal CT was performed showing recurrent volvulus decompression again performed as per GI s/p sigmoid colectomy on (10/03) - colostomy formed and functioning well tolerating clears appreciate surgery input - advance when okay with surgery Acute Blood Loss Anemia 10/07 s/p 2 units of PRBCs post-operatively at its noemi; Hgb down to 7.7 on 10/05 Currently, Hgb > 9; asymptomatic monitor H/H and transfuse PRN Metabolic Encephalopathy secondary to Recurrent UTI in the setting of Neurogenic Bladder and Indwelling Catheter 10/09 Last dose on Thursday of -[id number]-l-[id number]-[id number]- Primaxin 10/07 growing drug-resistant E. coli and Pseudomonas repeat culture on 10/04 negative Currently on Primaxin day #6/10 Recurrent b/l LE cellulitis - resolved patient with chronic venous stasis issues has had multiple episodes of cellulitis currently, lower extremities look improved with no significant erythema or warmth Stage II Sacral Pressure Ulcer present on admission appreciate wound care consultation daily dressing changes Paroxysmal A. Fib Coumadin has since been restarted; INR = 1.1, monitor daily continue Sotalol; currently NSR Diastolic CHF has had respiratory distress has been diuresed throughout hospital stay currently receiving PO Lasix 40mg daily DM2 hold oral agents insulin sliding scale will monitor BSGs with changing diet HTN Norvasc held blood pressures are stable, monitor BP DVT ppx subq heparin Coumadin restarted; monitor INR DNR WALLACE Mccoy Liner - Cousin contact number [phone] Total time spent on discharge = 50 minutes This includes examination of the patient, discharge planning, medication reconciliation, and communication with other providers. Discharge Instructions Continue current medications Low Fat Diet Recheck INR in 2-3 days
[2016-10-10] MEDS: WARFARIN SOD 4 MG TAB PO SCH (16:15)
[2016-10-11] MEDS ORDERED: POTASSIUM CHLORIDE 10 MEQ TABCR PO SCH (09:00)
[2016-10-20] MEDS ORDERED: IPRASOL4 INH (13:01)
[2016-10-20] MEDS ORDERED: CEFD300C2 PO (13:01)
[2016-12-07] MEDS ORDERED: LVQ750 PO (13:51)
[2016-12-07] MEDS ORDERED: LCTX PO (13:51)
[2016-12-07] MEDS ORDERED: OXYC-609 PO (13:53)
[2016-12-07] MEDS ORDERED: LORA-741 PO (13:53)
[2017-04-11] MEDS ORDERED: AMLO-110 PO (05:24)
[2017-04-11] MEDS ORDERED: ASPI81TA28 PO (11:00)
[2017-04-11] MEDS ORDERED: METO2.5T PO (15:20)
[2017-04-11] MEDS ORDERED: POTA-74 PO (15:30)
[2017-04-11] MEDS ORDERED: POLY99.0 OPB (15:45)
[2017-04-11] MEDS ORDERED: SOTA80TA PO (16:09)
[2017-04-11] MEDS ORDERED: SENN-83 PO (16:40)
[2017-04-11] MEDS ORDERED: FERR325T5 PO (17:08)
[2017-04-11] MEDS ORDERED: FRS/40 PO (17:09)
[2017-04-11] MEDS ORDERED: LCTX PO (17:09)
[2017-04-11] MEDS ORDERED: NYSCR30 TOP (17:33)
[2017-04-11] MEDS ORDERED: MOML PO (17:33)
[2017-04-11] MEDS ORDERED: LYR100 PO (17:33)
[2017-04-11] MEDS ORDERED: TRAM-10 PO ×2 (17:33)
[2017-04-11] MEDS ORDERED: BISA-16 PO (17:33)
[2017-04-11] MEDS ORDERED: CMD25 PO (17:43)
[2017-04-16] MEDS ORDERED: CEFE2INJ2 IV ×2 (14:58→15:00)
[2017-04-16] MEDS ORDERED: VNCE1000 IV (15:03)
== END 2016-10-10 18:50 | DRG 329 ==
LOC: ENRESERVTM → ENRESERVDT → EDBD 19:40 → C.EDC 19:41 → C.2E 22:07 → C.MSICU 10-03 13:15 → C.MSW 10-07 17:32
PROVIDERS: ADMIT Family Medicine; ATTEND Family Medicine
PROC: 0D7N8ZZ Dilation of Sigmoid Colon, Via Natural or Artificial Opening Endoscopic (ICD-10-PCS; 2016-09-29)
PROC: 0DBN0ZZ Excision of Sigmoid Colon, Open Approach (ICD-10-PCS; principal; 2016-10-03 10:00)
PROC: 0D1N0Z4 Bypass Sigmoid Colon to Cutaneous, Open Approach (ICD-10-PCS; principal; 2016-10-03 10:00)
DX: K56.2 Volvulus (principal); J96.22 Acute and chronic respiratory failure with hypercapnia; G93.41 Metabolic encephalopathy; J96.21 Acute and chronic respiratory failure with hypoxia; I50.31 Acute diastolic (congestive) heart failure; I50.32 Chronic diastolic (congestive) heart failure; L03.116 Cellulitis of left lower limb; N17.9 Acute kidney failure, unspecified; L03.115 Cellulitis of right lower limb; E87.1 Hypo-osmolality and hyponatremia; I13.0 Hypertensive heart and chronic kidney disease with heart failure and stage 1 through stage 4 chronic kidney disease, or unspecified chronic kidney disease; D62 Acute posthemorrhagic anemia; E66.2 Morbid (severe) obesity with alveolar hypoventilation; G82.20 Paraplegia, unspecified; T83.511A Infection and inflammatory reaction due to indwelling urethral catheter, initial encounter; N39.0 Urinary tract infection, site not specified; E86.0 Dehydration; Z99.81 Dependence on supplemental oxygen; I25.10 Atherosclerotic heart disease of native coronary artery without angina pectoris; Z86.14 Personal history of Methicillin resistant Staphylococcus aureus infection; Z79.82 Long term (current) use of aspirin; Z79.899 Other long term (current) drug therapy; Z88.8 Allergy status to other drugs, medicaments and biological substances; Z79.01 Long term (current) use of anticoagulants; Z91.040 Latex allergy status; I48.0 Paroxysmal atrial fibrillation; Z79.84 Long term (current) use of oral hypoglycemic drugs; Z87.891 Personal history of nicotine dependence; N31.9 Neuromuscular dysfunction of bladder, unspecified; G51.0 Bell's palsy; R19.7 Diarrhea, unspecified; Z66 Do not resuscitate; Z80.8 Family history of malignant neoplasm of other organs or systems; Z82.49 Family history of ischemic heart disease and other diseases of the circulatory system; Z80.42 Family history of malignant neoplasm of prostate; Z82.3 Family history of stroke; Z90.49 Acquired absence of other specified parts of digestive tract; B96.20 Unspecified Escherichia coli [E. coli] as the cause of diseases classified elsewhere; B96.5 Pseudomonas (aeruginosa) (mallei) (pseudomallei) as the cause of diseases classified elsewhere; E11.51 Type 2 diabetes mellitus with diabetic peripheral angiopathy without gangrene; E78.5 Hyperlipidemia, unspecified; Z68.39 Body mass index [BMI] 39.0-39.9, adult; Z88.3 Allergy status to other anti-infective agents; E11.22 Type 2 diabetes mellitus with diabetic chronic kidney disease; Z96.652 Presence of left artificial knee joint; N18.3 Chronic kidney disease, stage 3 (moderate); K21.9 Gastro-esophageal reflux disease without esophagitis; M19.90 Unspecified osteoarthritis, unspecified site; I25.2 Old myocardial infarction; L89.152 Pressure ulcer of sacral region, stage 2; E87.6 Hypokalemia; Y83.1 Surgical operation with implant of artificial internal device as the cause of abnormal reaction of the patient, or of later complication, without mention of misadventure at the time of the procedure; Z16.24 Resistance to multiple antibiotics; Z96.659 Presence of unspecified artificial knee joint; D72.829 Elevated white blood cell count, unspecified

== ENCOUNTER 2016-10-12 09:01 | Inpatient (IN) | payer OTHER, MEDICARE ==
[~2016-10-12] VITALS: Ht 177.8 cm; Wt 109.5 kg
[2016-10-12] VITALS (7 sets, daily range): BP systolic 116–167; BP diastolic 82–91; PULSE 72–80; TEMP 36.1–36.8; O2SAT 95–99; Ht 177.8 cm; Wt 109.5 kg
[~2016-10-12 09:01] MED LIST changes: -BCTROWC TOP; -BISA10SU5 PR; -GUAI100S75 PO; -LYR50 PO; -NYSCR30 TOP; +WARF4TAB8 PO
--- NOTE | 2016-10-12 09:27 | EMERGENCY ROOM VISIT NOTE ---
History Report prepared by Victorino: Robert Bonilla Under the Supervision of: Dr. Hu Larios D.O. First contact with patient: 09:04 Chief Complaint: LETHARGIC Stated Complaint: LETHARGY Nursing Triage Summary: Staff reported the patient to be lethargic, sent for evaluation. History of Present Illness The patient is a 76 year old male who presents to the Emergency Room with complaints of altered mental status. The patient was recently discharged from our facility. He was intubated and spent time in the ICU. He was [facility] a prison. They started to notice over the last 24 hours that he was becoming less and less responsive. The patient doesn't answer to verbal questions and complains of abdominal pain. He also complains of generalized weakness. He denies having any chest pain or shortness of breath. He was noted to have difficulty breathing at the prison I received a DuoNeb and Solu- Medrol prior to arrival from the prehospital personnel. The patient's oxygen saturation were found to be low and he was placed on supplemental. The patient denies having any lower extremity swelling. He does complain of abdominal swelling and pain. He denies having any GI bleeding. The prison staff stated that his ostomy was working and he did not have any vomiting. Review of Systems See HPI for pertinent positives & negatives. A total of 10 systems reviewed and were otherwise negative. 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 (14) UTI (urinary tract infection) (15) UTI (urinary tract infection) (16) Warfarin anticoagulation Surgical Problems: (1) H/O inguinal hernia repair (2) H/O resection of large bowel (3) H/O sinus surgery (4) Status post hip hemiarthroplasty (5) Status post removal right hip prosthesis (6) Status post total knee replacement Family History Cerebral aneurysm BROTHER Colon cancer SISTER Diabetes mellitus MOTHER Heart disease FATHER MOTHER Hypertension FATHER Prostate cancer FATHER Stroke FATHER Social History Smoking Status: Unknown if Ever Smoked Alcohol Use: none Drug Use: none Marital Status: single Housing Status: lives alone, prison Occupation Status: retired Current/Historical Medications Scheduled Acetaminophen (Tylenol), 500 MG PO TID Amitriptyline HCl (Amitriptyline HCl), 10 MG PO BID Amlodipine (Norvasc), 5 MG PO DAILY Aspirin (Aspirin Chewable), 81 MG PO QAM Baclofen (Baclofen), 20 MG PO BID Diclofenac Sodium (Topical) (Diclofenac Sodium), 1 APPLN TOP TID Duloxetine HCl (Duloxetine HCl), 60 MG PO QAM Emollient (Moisturizing Cream), 1 APPLN TOP HS Ferrous Sulfate (Ferrous Sulfate), 325 MG PO BIDM Furosemide (Lasix), 20 MG PO QAM Ipratropium-Albuterol (Duoneb), 1 TREATMENT INH Q6H Metformin Hcl (Glucophage), 1,000 MG PO BID Metolazone (Zaroxolyn), 2.5 MG PO 2XWK Pantoprazole Sodium (Protonix), 40 MG PO QAM Polyvinyl Alcohol (Artificial Tears), 2 DROPS OPB UD Potassium Chloride (Potassium Chloride Er), 20 MEQ PO TID Pregabalin (Lyrica), 75 MG PO BID Rosuvastatin Calcium (Crestor), 10 MG PO DAILY Saline (Deep Sea Nasal Plover), 2 SPRAYS SABRINA UD Sennosides-Docusate Sodium (Senexon-S), 2 TABS PO DAILY Simethicone (Gas Relief Extra Strength), 125 MG PO TID Sotalol Hcl (Sotalol Hcl), 80 MG PO BID Warfarin Sodium (Coumadin), 2 MG PO 4XWK Zinc Oxide (Topical) (Desitin), 1 APPLN TOP BID Scheduled PRN Acetaminophen (Tylenol), 650 MG PO Q4H PRN for Pain Alum & Mag Hydrox-Simethicone (Rulox), 30 ML PO QD PRN for Indigestion Magnesium Hydroxide (Milk Of Magnesia), 30 ML PO UD PRN for Constipation Oxycodone HCl (Oxycodone HCl), 5 MG PO Q4H PRN for Moderate to Severe Pain Oxygen (Oxygen), 2 LITERS NA UD PRN for Shortness of Breath Saline (Deep Sea Nasal Plover), 2 SPRAYS SABRINA Q4H PRN for DRYNESS Sodium Phosphate/Biphosphate (Fleet Enema), 1 EA AL UD PRN for Constipation Allergies Coded Allergies: Latex (Verified Allergy, Mild, UNSURE - FROM [facility], 10/12/16) Macrolides and Ketolides (Verified Allergy, Unknown, UNKN, 10/12/16) Azithromycin (Verified Adverse Reaction, Mild, nausea, 10/12/16) with nausea and diarrhea Physical Exam Vital Signs Date Time Temp Pulse Resp B/P Pulse Ox O2 Delivery O2 Flow Rate FiO2 10/12/16 11:45 96 Nasal Cannula 3.0 10/12/16 10:23 59 18 111/69 96 Nasal Cannula 3.0 10/12/16 09:51 62 10/12/16 09:23 87 Room Air 10/12/16 09:23 94 Nasal Cannula 3.0 10/12/16 09:13 36.8 67 18 115/96 87 Room Air Physical Exam GENERAL: Patient is listless but responds to verbal commands. He does not appear to be in pain. EYES: The conjunctivae are clear. The pupils are round and reactive. EARS, NOSE, MOUTH AND THROAT: The nose is without any evidence of any deformity. Mucous membranes are moist. NECK: The neck is nontender and supple. RESPIRATORY: Shallow respirations are noted. There are scattered rhonchi noted throughout. CARDIOVASCULAR: Regular rate and rhythm noted there no murmurs rubs or gallops normal S1 normal S2 GASTROINTESTINAL: The abdomen is moderately distended and diffusely tender. There is a recent surgical site in the low abdomen. Skin margie are still in place. There is an ostomy in the left side of the abdomen. There is dark stool noted. There is also an area of protrusion in the ostomy site. The ostomy site appears patent. MUSCULOSKELETAL/EXTREMITIES: There is no evidence of gross deformity full range of motion is noted in the hips and shoulders SKIN: There is pedal edema bilaterally. There are venous stasis changes in both lower extremity's. NEUROLOGIC: Patient is awake and oriented to person place and situation. Medical Decision & Procedures ER Provider Diagnostic Interpretation: Radiology results as stated below per my review and radiologist interpretation: CT SCAN OF THE ABDOMEN AND PELVIS WITHOUT CONTRAST CLINICAL HISTORY: Diffuse abdominal pain COMPARISON STUDY: 09/28/2016 TECHNIQUE: CT scan of the abdomen and pelvis was performed from the lung bases to the proximal femurs. Images are reviewed in the axial, sagittal, and coronal planes. IV contrast was not administered for this examination. CT DOSE: 3271.15 mGy.cm FINDINGS: Lower chest: There are bibasilar opacities, likely atelectatic. Liver: The unenhanced liver is normal in size, contour, and attenuation. There is no intrahepatic biliary ductal dilatation. Gallbladder: Unremarkable. Spleen: Normal in size and attenuation. Pancreas: Unremarkable. Adrenal glands: Unremarkable. Kidneys: No renal, ureteral, or bladder calculi are visualized. Bowel: There are no transition zones indicate bowel obstruction. There is been interval surgery. There is a left lower quadrant ostomy. There is infiltration of the anterior abdominal wall fat consistent with recent surgery. There is a suture line within the sigmoid colon. The patient appears be status post partial sigmoid resection. There is infiltration of the mid and upper pelvic mesentery likely secondary to recent surgery. There is a 3 cm soft tissue nodule adjacent sigmoid stump. This likely represents postsurgical change, possibly representing a small hematoma. Peritoneum: There is no intraperitoneal free air or abdominal ascites. Vasculature: The abdominal aorta is normal in course and caliber. Adenopathy: There are mildly enlarged para-aortic and iliac lymph nodes, similar to the preceding study. Pelvic viscera: The bladder, and pelvic viscera are unremarkable. Skeletal structures: The right femoral head is absent. There are postsurgical changes in the right acetabulum. There is right acetabular erosion. There is a right hip joint effusion. There is a possible sinus tract to the right lateral skin surface.. IMPRESSION: 1. Interval sigmoid resection with creation of a left lower quadrant ostomy 2. No evidence of bowel obstruction. No evidence of free air 3. Infiltration and nodularity of the mid pelvic mesenteric fat, likely postsurgical 4. No evidence of a drainable abscess 5. Mild retroperitoneal and pelvic lymphadenopathy, likely postsurgical. 6. 3 cm soft tissue nodule adjacent to the sigmoid stump, likely postsurgical. 7. Persistent erosive/destructive changes involving the right acetabulum. Joint effusion. Possible sinus tract to the right lateral skin surface 8. Bibasilar pulmonary opacities likely atelectatic Electronically signed by: Hitesh Fajardo M.D. 10/12/2016 10:42 AM Dictated Date/Time: 10/12/2016 10:28 AM CHEST ONE VIEW PORTABLE CLINICAL HISTORY: Sepsis COMPARISON STUDY: 10/06/2016 FINDINGS: The heart is enlarged. There is aortic tortuosity/ectasia. There are low lung volumes. There is pulmonary vascular congestion. There are left basal airspace opacities, inflammatory versus atelectatic.[ The left-sided PICC catheter has been removed. There is equivocal small left pleural effusion. IMPRESSION: 1. Interval removal of the left-sided PICC catheter 2. Cardiomegaly with persistent pulmonary vascular congestion 3. Low lung volumes with left basilar atelectasis/consolidation 4. Equivocal small left pleural effusion Electronically signed by: Hitesh Fajardo M.D. 10/12/2016 9:58 AM Dictated Date/Time: 10/12/2016 9:[address] HEAD WITHOUT CONTRAST (CT) CLINICAL HISTORY: Acute change in mental status COMPARISON STUDY: 10/02/2016 TECHNIQUE: Axial CT of the brain is performed from the vertex to the skull base. IV contrast was not administered for this examination. CT DOSE: FINDINGS: No intra or extra-axial mass lesions are visualized. There is no CT evidence of acute cortical infarction. There is no evidence of midline shift. There is no acute hemorrhage. No calvarial fractures are visualized. There are patchy white matter hypodensities likely on a small vessel basis. There is no evidence of pathologic ventricular dilatation. There are postsurgical changes involving the maxillary sinuses. There is partial opacification the left frontal sinus. There is an opacified left anterior ethmoid air cell. IMPRESSION: No acute intracranial findings Electronically signed by: Hitesh Fajardo M.D. 10/12/2016 10:27 AM Dictated Date/Time: 10/12/2016 10:25 AM Laboratory Results 10/12/16 09:36 Red Blood Count 3.72, Mean Corpuscular Volume 83.9, Mean Corpuscular Hemoglobin 26.3, Mean Corpuscular Hemoglobin Concent 31.4, Mean Platelet Volume 9.4, Neutrophils (%) (Auto) 69.7, Lymphocytes (%) (Auto) 14.7, Monocytes (%) (Auto) 7.2, Eosinophils (%) (Auto) 4.1, Basophils (%) (Auto) 0.2, Neutrophils # (Auto) 6.48, Lymphocytes # (Auto) 1.37, Monocytes # (Auto) 0.67, Eosinophils # (Auto) 0.38, Basophils # (Auto) 0.02 10/12/16 09:36 Test 10/12/16 09:36 10/12/16 09:45 10/12/16 10:25 White Blood Count 9.30 K/uL (4.8-10.8) Red Blood Count 3.72 M/uL (4.7-6.1) Hemoglobin 9.8 g/dL (14.0-18.0) Hematocrit 31.2 % (42-52) Mean Corpuscular Volume 83.9 fL (80-100) Mean Corpuscular Hemoglobin 26.3 pg (25-34) Mean Corpuscular Hemoglobin Concent 31.4 g/dl (32-36) Platelet Count 308 K/uL (130-400) Mean Platelet Volume 9.4 fL (7.4-10.4) Neutrophils (%) (Auto) 69.7 % Lymphocytes (%) (Auto) 14.7 % Monocytes (%) (Auto) 7.2 % Eosinophils (%) (Auto) 4.1 % Basophils (%) (Auto) 0.2 % Neutrophils # (Auto) 6.48 K/uL (1.4-6.5) Lymphocytes # (Auto) 1.37 K/uL (1.2-3.4) Monocytes # (Auto) 0.67 K/uL (0.11-0.59) Eosinophils # (Auto) 0.38 K/uL (0-0.5) Basophils # (Auto) 0.02 K/uL (0-0.2) RDW Standard Deviation 55.1 fL (36.4-46.3) RDW Coefficient of Variation 18.0 % (11.5-14.5) Immature Granulocyte % (Auto) 4.1 % Immature Granulocyte # (Auto) 0.38 K/uL (0.00-0.02) Nucleated RBC Absolute Count (auto) 0.03 K/uL (0-0) Nucleated Red Blood Cells % 0.3 % Erythrocyte Sedimentation Rate 77 mm/hr (0-14) Prothrombin Time 16.8 SECONDS (9.0-12.0) Prothromb Time International Ratio 1.5 (0.9-1.1) Activated Partial Thromboplast Time 34.3 SECONDS (21.0-31.0) Partial Thromboplastin Ratio 1.3 Venous Blood pH 7.35 (7.36-7.41) Venous Blood Partial Pressure CO2 72 mmHg (38.0-50.0) Venous Blood Partial Pressure O2 26 mmHg Venous Blood HCO3 39 mmol/L Venous Blood Oxygen Saturation < 60.0 % Venous Blood Base Excess 10.6 mmol/L Anion Gap 4.0 mmol/L (3-11) Est Creatinine Clear Calc Drug Dose 41.9 ml/min Estimated GFR () 39.4 Estimated GFR (Non- 34.0 BUN/Creatinine Ratio 15.6 (10-20) Calcium Level 8.5 mg/dl (8.5-10.1) Phosphorus Level 3.4 mg/dl (2.5-4.9) Magnesium Level 1.8 mg/dl (1.8-2.4) Total Bilirubin 0.5 mg/dl (0.2-1) Aspartate Amino Transf (AST/SGOT) 16 U/L (15-37) Alanine Aminotransferase (ALT/SGPT) 10 U/L (12-78) Alkaline Phosphatase 109 U/L (45-117) Ammonia < 10.0 umol/L (11-32) Total Creatine Kinase 56 U/L (39-308) Creatine Kinase MB 1.0 ng/ml (0.5-3.6) Creatine Kinase MB Ratio 1.8 (0-3.0) Troponin I < 0.015 ng/ml (0-0.045) C-Reactive Protein 8.04 mg/dl (0-0.29) Pro-B-Type Natriuretic Peptide 749 pg/ml (0-900) Total Protein 8.1 gm/dl (6.4-8.2) Albumin 2.6 gm/dl (3.4-5.0) Globulin 5.5 gm/dl (2.5-4.0) Albumin/Globulin Ratio 0.5 (0.9-2) Lipase 111 U/L (73-393) Bedside Lactic Acid Venous 1.87 mmol/L (0.90-1.70) Urine Color YELLOW Urine Appearance CLEAR (CLEAR) Urine pH 5.0 (4.5-7.5) Urine Specific Morton 1.014 (1.000-1.030) Urine Protein TRACE (NEG) Urine Glucose (UA) NEG (NEG) Urine Ketones TRACE (NEG) Urine Occult Blood 1+ (NEG) Urine Nitrite NEG (NEG) Urine Bilirubin NEG (NEG) Urine Urobilinogen NEG (NEG) Urine Leukocyte Esterase MODERATE (NEG) Urine WBC (Auto) 10-30 /hpf (0-5) Urine RBC (Auto) 5-10 /hpf (0-4) Urine Hyaline Casts (Auto) 0 /lpf (0-5) Urine Epithelial Cells (Auto) >30 /lpf (0-5) Urine Bacteria (Auto) 1+ (NEG) Urine Renal Epithelial Cells /lpf (0-5) Laboratory results per my review. Medications Administered Medications (Trade) Dose Ordered Sig/Betzy Route Start Time Stop Time Status Last Admin Dose Admin Sodium Chloride (Nss 500ml) 500 ml @ 999 mls/hr Q31M STAT IV 10/12/16 10:33 10/12/16 11:03 DC 10/12/16 10:36 999 MLS/HR Ceftriaxone Sodium (Rocephin Inj) 1 gm NOW STAT IV 10/12/16 11:05 10/12/16 11:06 DC 10/12/16 12:05 1 GM Levofloxacin 750 mg 750 mg NOW STAT IV 10/12/16 11:05 10/12/16 11:06 DC 10/12/16 12:05 750 MG Sodium Chloride (Nss 1000ml) 1,000 ml @ 80 mls/hr [id number] IV 10/12/16 12:15 11/11/16 12:14 10/12/16 15:00 80 MLS/HR ECG Indication: weakness Rate (beats per minute): 60 Rhythm: normal sinus Findings: T-wave inversion, no ectopy, other (LVH by voltage criteria) Comparison ECG Date: 10/01/16 Change: no significant change ED Course 0915: The patient was evaluated in room B6. A complete history and physical examination were performed. 1033: Ordered Sodium Chloride 500 mL @ 999 mL/hr IV. 1105: Ordered Levofloxacin 750 mg IV, Rocephin 1 gm IV. 1125: I discussed the case with Emilie Askew, she will evaluate the patient for further treatment. Medical Decision Prior records/ancillary studies reviewed and summarized above. Nursing notes reviewed. Additional history obtained from the prehospital personnel. The patient's history was concerning for altered mental status. Differential diagnosis: Etiologies such as metabolic, infection, hypoglycemia, electrolyte abnormalities , cardiac sources, intracerebral event, toxicologic, neurologic, as well as others were entertained. The patient is a 76-year-old male who presented to the emergency department for altered mental status from his [facility]. The patient has been noticed to have decrease in his mental status over the last few days. CAT scan did not show any signs of stroke. He also recently had abdominal surgery. CT abdomen and pelvis did not show any acute disease. The patient was found have signs of urinary tract infection. He also may have a pneumonia because he has significant sputum production hypoxia. Patient started on IV antibiotics in emergency department. He also was given a small fluid bolus. I discussed the patient's laboratory and radiographic studies with him. I also discussed his case with the on-call [facility] hospitalist group. They have agreed to evaluate the patient in emergency department for further management and disposition. Consults Time Called: 1113 Consulting Physician: Emilie Askew Returned Call: 1125 I discussed the case with Emilie Askew, she will evaluate the patient for further treatment. Impression Primary Impression: Altered mental status Additional Impressions: Abdominal pain UTI (urinary tract infection) Hypoxia Scribe Attestation The scribe's documentation has been prepared under my direction and personally reviewed by me in its entirety. I confirm that the note above accurately reflects all work, treatment, procedures, and medical decision making performed by me. Departure Information Dispostion Being Evaluated By Hospitalist Referrals Lilo Davis M.D. (PCP) Patient Instructions My [facility] Problem Qualifiers Primary Impression: Altered mental status Altered mental status type: unspecified Qualified Codes: R41.82 - Altered mental status, unspecified Additional Impressions: Abdominal pain Abdominal location: generalized Qualified Codes: R10.84 - Generalized abdominal pain UTI (urinary tract infection) Urinary tract infection type: site unspecified Hematuria presence: without hematuria Qualified Codes: N39.0 - Urinary tract infection, site not specified
[2016-10-12 09:53] LABS: VEN BLOOD GAS BASE EXCESS 10.6 mmol/L; VENOUS BLOOD GAS PCO2 72 mmHg (38.0-50.0); VENOUS BLOOD GAS PO2 26 mmHg
[2016-10-12 09:54] LABS: BASO % 0.2 %; BASO ABS # 0.02 K/uL (0-0.2); COMPLETE YES; EOS % 4.1 %; HEMATOCRIT 31.2 % (42-52); IG% 4.1 %; LYMPH % 14.7 %; LYMPH ABS # 1.37 K/uL (1.2-3.4); MEAN CELL VOLUME 83.9 fL (80-100); MEAN CORPUSCULAR HEMOGLOBIN 26.3 pg (25-34); MEAN CORPUSCULAR HGB CONC 31.4 g/dl (32-36); MEAN PLATELET VOLUME 9.4 fL (7.4-10.4); MONO % 7.2 %; NEUT % 69.7 %; PLATELET COUNT 308 K/uL (130-400); RED BLOOD COUNT 3.72 M/uL (4.7-6.1)
[2016-10-12 09:55] LABS: VEN BLD GAS O2 SATURATION < 60.0 %
--- NOTE | 2016-10-12 10:00 | DIAGNOSTIC IMAGING REPORT ---
CHEST ONE VIEW PORTABLE CLINICAL HISTORY: Sepsis COMPARISON STUDY: 10/06/2016 FINDINGS: The heart is enlarged. There is aortic tortuosity/ectasia. There are low lung volumes. There is pulmonary vascular congestion. There are left basal airspace opacities, inflammatory versus atelectatic.[ The left-sided PICC catheter has been removed. There is equivocal small left pleural effusion. IMPRESSION: 1. Interval removal of the left-sided PICC catheter 2. Cardiomegaly with persistent pulmonary vascular congestion 3. Low lung volumes with left basilar atelectasis/consolidation 4. Equivocal small left pleural effusion Electronically signed by: Hitesh Fajardo M.D. 10/12/2016 9:58 AM Dictated Date/Time: 10/12/2016 9:57 AM
[2016-10-12 10:04] LABS: INR 1.5 (0.9-1.1); PARTIAL THROMBOPLASTIN RATIO 1.3; PROTHROMBIN TIME (PATIENT) 16.8 SECONDS (9.0-12.0)
[2016-10-12 10:12] LABS: ALT/SGPT 10 U/L (12-78); AST/SGOT 16 U/L (15-37); BLOOD UREA NITROGEN 30 mg/dl (7-18); BUN/CREATININE RATIO 15.6 (10-20); CALCIUM 8.5 mg/dl (8.5-10.1); CARBON DIOXIDE 39 mmol/L (21-32); CHLORIDE 92 mmol/L (98-107); GLUCOSE 136 mg/dl (70-99); MAGNESIUM 1.8 mg/dl (1.8-2.4); POTASSIUM 3.8 mmol/L (3.5-5.1); SODIUM 135 mmol/L (136-145)
[2016-10-12 10:21] LABS: ALB/GLOB RATIO 0.5 (0.9-2); ALKALINE PHOSPHATASE 109 U/L (45-117); C-REACTIVE PROTEIN 8.04 mg/dl (0-0.29); CKMB/CK RATIO 1.8 (0-3.0); PHOSPHORUS 3.4 mg/dl (2.5-4.9)
--- NOTE | 2016-10-12 10:28 | DIAGNOSTIC IMAGING REPORT ---
CT HEAD WITHOUT CONTRAST (CT) CLINICAL HISTORY: Acute change in mental status COMPARISON STUDY: 10/02/2016 TECHNIQUE: Axial CT of the brain is performed from the vertex to the skull base. IV contrast was not administered for this examination. CT DOSE: FINDINGS: No intra or extra-axial mass lesions are visualized. There is no CT evidence of acute cortical infarction. There is no evidence of midline shift. There is no acute hemorrhage. No calvarial fractures are visualized. There are patchy white matter hypodensities likely on a small vessel basis. There is no evidence of pathologic ventricular dilatation. There are postsurgical changes involving the maxillary sinuses. There is partial opacification the left frontal sinus. There is an opacified left anterior ethmoid air cell. IMPRESSION: No acute intracranial findings Electronically signed by: Hitesh Fajardo M.D. 10/12/2016 10:27 AM Dictated Date/Time: 10/12/2016 10:25 AM
[2016-10-12] MEDS ORDERED: SODIUM CHLORIDE 0.9% 500ML 500 ML IV STA (10:33)
--- NOTE | 2016-10-12 10:43 | DIAGNOSTIC IMAGING REPORT ---
CT SCAN OF THE ABDOMEN AND PELVIS WITHOUT CONTRAST CLINICAL HISTORY: Diffuse abdominal pain COMPARISON STUDY: 09/28/2016 TECHNIQUE: CT scan of the abdomen and pelvis was performed from the lung bases to the proximal femurs. Images are reviewed in the axial, sagittal, and coronal planes. IV contrast was not administered for this examination. CT DOSE: 3271.15 mGy.cm FINDINGS: Lower chest: There are bibasilar opacities, likely atelectatic. Liver: The unenhanced liver is normal in size, contour, and attenuation. There is no intrahepatic biliary ductal dilatation. Gallbladder: Unremarkable. Spleen: Normal in size and attenuation. Pancreas: Unremarkable. Adrenal glands: Unremarkable. Kidneys: No renal, ureteral, or bladder calculi are visualized. Bowel: There are no transition zones indicate bowel obstruction. There is been interval surgery. There is a left lower quadrant ostomy. There is infiltration of the anterior abdominal wall fat consistent with recent surgery. There is a suture line within the sigmoid colon. The patient appears be status post partial sigmoid resection. There is infiltration of the mid and upper pelvic mesentery likely secondary to recent surgery. There is a 3 cm soft tissue nodule adjacent sigmoid stump. This likely represents postsurgical change, possibly representing a small hematoma. Peritoneum: There is no intraperitoneal free air or abdominal ascites. Vasculature: The abdominal aorta is normal in course and caliber. Adenopathy: There are mildly enlarged para-aortic and iliac lymph nodes, similar to the preceding study. Pelvic viscera: The bladder, and pelvic viscera are unremarkable. Skeletal structures: The right femoral head is absent. There are postsurgical changes in the right acetabulum. There is right acetabular erosion. There is a right hip joint effusion. There is a possible sinus tract to the right lateral skin surface.. IMPRESSION: 1. Interval sigmoid resection with creation of a left lower quadrant ostomy 2. No evidence of bowel obstruction. No evidence of free air 3. Infiltration and nodularity of the mid pelvic mesenteric fat, likely postsurgical 4. No evidence of a drainable abscess 5. Mild retroperitoneal and pelvic lymphadenopathy, likely postsurgical. 6. 3 cm soft tissue nodule adjacent to the sigmoid stump, likely postsurgical. 7. Persistent erosive/destructive changes involving the right acetabulum. Joint effusion. Possible sinus tract to the right lateral skin surface 8. Bibasilar pulmonary opacities likely atelectatic Electronically signed by: Hitesh Fajardo M.D. 10/12/2016 10:42 AM Dictated Date/Time: 10/12/2016 10:28 AM
[2016-10-12 10:48] LABS: URINE APPEARANCE CLEAR (CLEAR); URINE BILIRUBIN NEG (NEG); URINE COLOR YELLOW; URINE EPITHELIAL CELL AUTO >30 /lpf (0-5); URINE NITRITE NEG (NEG); URINE SPECIFIC GRAVITY 1.014 (1.000-1.030); UROBILINOGEN NEG (NEG)
[2016-10-12 10:52] LABS: MANUAL MICROSCOPIC REQUIRED? NO; REVIEW REQ? YES
[2016-10-12] MEDS ORDERED: LEVAQUIN 750MG / 150ML D5W IV STA (11:05)
[2016-10-12] MEDS ORDERED: CEFTRIAXONE SOD INJ 1 GM ADDVIAL IV STA (11:05)
[2016-10-12 11:37] LABS: ZZURINE CULT IF INDIC CATH YES
[2016-10-12] MEDS ORDERED: ONDANSETRON INJ 2 MG/ML 2 ML VIAL IV PRN (12:15)
[2016-10-12] MEDS ORDERED: ACETAMINOPHEN 325 MG TAB PO PRN (12:15)
[2016-10-12] MEDS ORDERED: LEVOFLOXACIN / D5W 500 MG in PREMIXED IN D5W 100 ML IV SCH (12:15)
[2016-10-12] MEDS ORDERED: CEFTRIAXONE SOD INJ 1 GM in DEXTROSE 5% ADD-VANTAGE 50ML 50 ML IV SCH (12:15)
[2016-10-12] MEDS ORDERED: GLUCOSE 40% GEL 15 GM TUBE PO PRN (12:30)
[2016-10-12] MEDS ORDERED: SODIUM CHLORIDE 0.65% NA SOLN 45 ML (OCEAN) NAE SCH (12:30)
[2016-10-12] MEDS ORDERED: DEXTROSE 50% 50 ML SYR IV PRN (12:30)
[2016-10-12] MEDS ORDERED: SODIUM CHLORIDE 0.65% NA SOLN 45 ML (OCEAN) NAE PRN (12:30)
[2016-10-12] MEDS ORDERED: SOD PHOSPHATE/SOD BIPHOSPHATE ENEMA 132 ML BTL PR PRN (12:30)
[2016-10-12] MEDS ORDERED: MAGNESIUM HYDROXIDE SUSP 30 ML UDC PO PRN (12:30)
[2016-10-12] MEDS ORDERED: GLUCOSE 10 TABS/TUBE PO PRN (12:30)
[2016-10-12] MEDS ORDERED: GLUCAGON FOR INJ 1 MG VIAL SQ PRN (12:30)
[2016-10-12] MEDS ORDERED: NITROGLYCERIN 0.4 MG SL PER TAB CHARGE SL PRN (12:45)
--- NOTE | 2016-10-12 12:54 | Progress Note ---
Progress Note Date of Service Oct 12, 2016. Progress Note ATTENDING ADDENDUM care coordinated with EVIE Diamond please refer to her notes for full details, I agree with her notes patient seen and examined, records reviewed by myself as well on exam, patient seen with family at bedside, Michael patient is lethargic, grimaces to painful stimuli but not in distress Michael states that she was informed that patient has been progressively [facility] at the [facility] no cough, nausea/vomiting, diarrhea VS noted and reviewed lethargic,, not in distress no accessory muscle use normal rate, regular rhythm, no murmurs clear breath sounds bilaterally non distended, soft, surgical incision site without signs of infection, colostomy site with formed stools, non bloody no leg edema, (+) areas of mild erythema, no warmth lethargic, pupils 3mm equal round briskly reactive, grimaces to painful stimuli WBC 9.3 Hg 9.8 Crea 1.9 abg PH 7.[address] head: no acute process CT abdomen: no free air UA: (+) indicative of uti ASSESSMENT/PLAN> ALTERED MENTAL STATUS LIKELY TOXIC METABOLIC ENCEPHALOPATHY FROM: RECURRENT UTI in the setting of Chronic Indwelling Cantrell Cath grew E coli and Pseudomonas last admission, treated with Imipenem ff up repeat urine and blood cultures based on last urine cultures, empiric Cefepime for now change Cantrell Cath will consult ID for recurrent UTIs, possible suppressive therapy ACUTE RENAL FAILURE ON CKD 3 hold diuretics gentle IV fluids repeat ABG to r/o worsening of hypercapnea RECENT SIGMOID COLECTOMY FOR SIGMOID VOLVULUS Colostomy functioning ok per SNF CT abdomen: no acute process other diagnoses and plan of care as per EVIE Diamond's notes Jethro Turner MD
[2016-10-12 13:10] LABS: ARTERIAL BLD GAS O2 SATURATION 94.9 % (90-95); ARTERIAL BLOOD GAS HCO3 37 mmol/L (19-24); ARTERIAL BLOOD GAS PO2 81 mm/Hg (80-95)
[2016-10-12 13:13] LABS: ALLEN TEST POS (POS); O2 ADMINISTRATION 3 L
[2016-10-12] MEDS: SODIUM CHLORIDE 0.9% 1000ML 1,000 ML IV SCH (15:00)
[2016-10-12] MEDS ORDERED: INSULIN ASPART 100 UNITS/ML 3 ML PEN SC SCH (16:00)
[2016-10-12] MEDS ORDERED: CEFEPIME IV 2000 MG in DEXTROSE 5% 100ML IV SCH (16:00)
[2016-10-12] MEDS: DICLOFENAC SOD 1% GEL 100 GM TUBE EXT SCH ×2 (16:32→21:00)
[2016-10-12] MEDS: FERROUS SULFATE 325 MG TAB PO SCH (16:32)
[2016-10-12] MEDS ORDERED: NURSING VERBAL MED ORDER ONE (16:45)
[2016-10-12] MEDS: WARFARIN SOD 2 MG TAB PO SCH (17:50)
[2016-10-12] MEDS: INSULIN ASPART 100 UNITS/ML 3 ML PEN SC SCH ×2 (18:05→23:59)
--- NOTE | 2016-10-12 19:17 | History and Physical ---
History & Physical Date & Time of Service: Oct 12, 2016 at 12:41 Chief Complaint: Lethargy Primary Care Physician: Lilo Davis M.D. 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 Pt was recently admitted to [facility] from 09/28-10/10 with recurrent sigmoid volvulus that was treated with sigmoid bowel resection. Post-operatively patient was transfused 2 units pRBCs and required intubation for respiratory failure (due to obesity- hypoventilation and CHF exacerbation). In addition, urine culture grew drug- resistant pseudomonas and E.coli and patient was treated with 10-day course of Primaxin. Pt was discharged in stable condition to [facility] home. Per cousin at bedside, patient was as his baseline upon discharge. This morning she received a call that the patient had become progressively more lethargic and unresponsive over the past 24 hrs. Cousin adds that this is how the patient typically presents when he has an infection. Pt is unable to give any history at this time due to AMS. In the ED, pt was hypoxic on room air upon arrival. He is afebrile with no leukocytosis. Creat 1.9. UA 1+ bacteria. CXR + low lung volumes with L basilar atelectasis. CT abd/pelvis negative for acute process. Pt will be admitted for further evaluation and treatment. 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 (13) Warfarin anticoagulation Status: Chronic Surgical Problems: (1) H/O inguinal hernia repair Status: Chronic (2) H/O resection of large bowel Permanent Comment: colostomy Status: Chronic (3) H/O sinus surgery Status: Chronic (4) Status post hip hemiarthroplasty Permanent Comment: right Status: Chronic (5) Status post removal right hip prosthesis Status: Chronic (6) Status post total knee replacement Permanent Comment: BL, with revision of left Status: Chronic Family History Cerebral aneurysm BROTHER Colon cancer SISTER Diabetes mellitus MOTHER Heart disease FATHER MOTHER Hypertension FATHER Prostate cancer FATHER Stroke FATHER Social History Smoking Status: Former Smoker Alcohol Use: none Drug Use: none Marital Status: single Housing status: assisted Occupational Status: retired Immunizations History of Influenza Vaccine: Yes Influenza Vaccine Date: Apr 01, 2014 History of Tetanus Vaccine?: Yes Tetanus Immunization Date: May 13, 1996 History of Pneumococcal: Yes Pneumococcal Date: Jun 26, 2010 History of Hepatitis B Vaccine: No Multi-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, MRSA Allergies Coded Allergies: Latex (Verified Allergy, Mild, UNSURE - FROM [facility], 10/12/16) Macrolides and Ketolides (Verified Allergy, Unknown, [facility], 10/12/16) Azithromycin (Verified Adverse Reaction, Mild, nausea, 10/12/16) with nausea and diarrhea Home Medications Scheduled Acetaminophen (Tylenol), 500 MG PO TID Amitriptyline HCl (Amitriptyline HCl), 10 MG PO BID Amlodipine (Norvasc), 5 MG PO DAILY Aspirin (Aspirin Chewable), 81 MG PO QAM Baclofen (Baclofen), 20 MG PO BID Diclofenac Sodium (Topical) (Diclofenac Sodium), 1 APPLN TOP TID Duloxetine HCl (Duloxetine HCl), 60 MG PO QAM Emollient (Moisturizing Cream), 1 APPLN TOP HS Ferrous Sulfate (Ferrous Sulfate), 325 MG PO BIDM Furosemide (Lasix), 20 MG PO QAM Ipratropium-Albuterol (Duoneb), 1 TREATMENT INH Q6H Metformin Hcl (Glucophage), 1,000 MG PO BID Metolazone (Zaroxolyn), 2.5 MG PO 2XWK Pantoprazole Sodium (Protonix), 40 MG PO QAM Polyvinyl Alcohol (Artificial Tears), 2 DROPS OPB UD Potassium Chloride (Potassium Chloride Er), 20 MEQ PO TID Pregabalin (Lyrica), 75 MG PO BID Rosuvastatin Calcium (Crestor), 10 MG PO DAILY Saline (Deep Sea Nasal [place]), 2 SPRAYS SABRINA UD Sennosides-Docusate Sodium ([place]-S), 2 TABS PO DAILY Simethicone (Gas Relief Extra Strength), 125 MG PO TID Sotalol Hcl (Sotalol Hcl), 80 MG PO BID Warfarin Sodium (Coumadin), 2 MG PO 4XWK Zinc Oxide (Topical) (Desitin), 1 APPLN TOP BID Scheduled PRN Acetaminophen (Tylenol), 650 MG PO Q4H PRN for Pain Alum & Mag Hydrox-Simethicone (Rulox), 30 ML PO QD PRN for Indigestion Magnesium Hydroxide (Milk Of Magnesia), 30 ML PO UD PRN for Constipation Oxycodone HCl (Oxycodone HCl), 5 MG PO Q4H PRN for Moderate to Severe Pain Oxygen (Oxygen), 2 LITERS NA UD PRN for Shortness of Breath Saline (Deep Sea Nasal [place]), 2 SPRAYS SABRINA Q4H PRN for DRYNESS Sodium Phosphate/Biphosphate (Fleet Enema), 1 EA NC UD PRN for Constipation Review of Systems Unable to obtain ROS due to AMS Physical Exam Vital Signs Date Time Temp Pulse Resp B/P Pulse Ox O2 Delivery O2 Flow Rate FiO2 10/12/16 11:45 96 Nasal Cannula 3.0 10/12/16 10:23 59 18 111/69 96 Nasal Cannula 3.0 10/12/16 09:51 62 10/12/16 09:23 87 Room Air 10/12/16 09:23 94 Nasal Cannula 3.0 10/12/16 09:13 36.8 67 18 115/96 87 Room Air General Appearance: WD/WN, no apparent distress, + pertinent finding (Pt is laying in bed sleeping on my arrival; cousin is at bedside ) Head: normocephalic, atraumatic Eyes: normal inspection ENT: hearing grossly normal Neck: supple Respiratory/Chest: chest non-tender, lungs clear, normal breath sounds, no respiratory distress Cardiovascular: regular rate, rhythm, no murmur Abdomen/GI: normal bowel sounds, non tender, soft, + pertinent finding ( surgical scar noted to left lower abdomen; no erythema or drainage noted; colostomy bag contains light brown stool ) Back: + pertinent finding (unable to inspect back at this time ) Extremities/Musculoskelatal: no calf tenderness, + pedal edema (trace), + pertinent finding (L knee >R knee; chronic venous stasis skin changes) Neurologic/Psych: + pertinent finding (arousable but very somnolent ) Skin: normal color, warm/dry Diagnostics Laboratory Results Results Past 24 Hours Test 10/12/16 09:36 10/12/16 09:45 10/12/16 10:25 Range/Units White Blood Count 9.30 4.8-10.8 K/uL Red Blood Count 3.72 4.7-6.1 M/uL Hemoglobin 9.8 14.0-18.0 g/dL Hematocrit 31.2 42-52 % Mean Corpuscular Volume 83.9 80-100 fL Mean Corpuscular Hemoglobin 26.3 25-34 pg Mean Corpuscular Hemoglobin Concent 31.4 32-36 g/dl Platelet Count 308 130-400 K/uL Mean Platelet Volume 9.4 7.4-10.4 fL Neutrophils (%) (Auto) 69.7 % Lymphocytes (%) (Auto) 14.7 % Monocytes (%) (Auto) 7.2 % Eosinophils (%) (Auto) 4.1 % Basophils (%) (Auto) 0.2 % Neutrophils # (Auto) 6.48 1.4-6.5 K/uL Lymphocytes # (Auto) 1.37 1.2-3.4 K/uL Monocytes # (Auto) 0.67 0.11-0.59 K/uL Eosinophils # (Auto) 0.38 0-0.5 K/uL Basophils # (Auto) 0.02 0-0.2 K/uL RDW Standard Deviation 55.1 36.4-46.3 fL RDW Coefficient of Variation 18.0 11.5-14.5 % Immature Granulocyte % (Auto) 4.1 % Immature Granulocyte # (Auto) 0.38 0.00-0.02 K/uL Nucleated RBC Absolute Count (auto) 0.03 0-0 K/uL Nucleated Red Blood Cells % 0.3 % Erythrocyte Sedimentation Rate 77 0-14 mm/hr Prothrombin Time 16.8 9.0-12.0 SECONDS Prothromb Time International Ratio 1.5 0.9-1.1 Activated Partial Thromboplast Time 34.3 21.0-31.0 SECONDS Partial Thromboplastin Ratio 1.3 Venous Blood pH 7.35 7.36-7.41 Venous Blood Partial Pressure CO2 72 38.0-50.0 mmHg Venous Blood Partial Pressure O2 26 mmHg Venous Blood HCO3 39 mmol/L Venous Blood Oxygen Saturation < 60.0 % Venous Blood Base Excess 10.6 mmol/L Sodium Level 135 136-145 mmol/L Potassium Level 3.8 3.5-5.1 mmol/L Chloride Level 92 98-107 mmol/L Carbon Dioxide Level 39 21-32 mmol/L Anion Gap 4.0 3-11 mmol/L Blood Urea Nitrogen 30 7-18 mg/dl Creatinine 1.90 0.60-1.40 mg/dl Est Creatinine Clear Calc Drug Dose 41.9 ml/min Estimated GFR () 39.4 Estimated GFR (Non- 34.0 BUN/Creatinine Ratio 15.6 10-20 Random Glucose 136 70-99 mg/dl Calcium Level 8.5 8.5-10.1 mg/dl Phosphorus Level 3.4 2.5-4.9 mg/dl Magnesium Level 1.8 1.8-2.4 mg/dl Total Bilirubin 0.5 0.2-1 mg/dl Aspartate Amino Transf (AST/SGOT) 16 15-37 U/L Alanine Aminotransferase (ALT/SGPT) 10 12-78 U/L Alkaline Phosphatase 109 45-117 U/L Ammonia < 10.0 11-32 umol/L Total Creatine Kinase 56 39-308 U/L Creatine Kinase MB 1.0 0.5-3.6 ng/ml Creatine Kinase MB Ratio 1.8 0-3.0 Troponin I < 0.015 0-0.045 ng/ml C-Reactive Protein 8.04 0-0.29 mg/dl Pro-B-Type Natriuretic Peptide 749 0-900 pg/ml Total Protein 8.1 6.4-8.2 gm/dl Albumin 2.6 3.4-5.0 gm/dl Globulin 5.5 2.5-4.0 gm/dl Albumin/Globulin Ratio 0.5 0.9-2 Lipase 111 73-393 U/L Bedside Lactic Acid Venous 1.87 0.90-1.70 mmol/L Urine Color YELLOW Urine Appearance CLEAR CLEAR Urine pH 5.0 4.5-7.5 Urine Specific [place] 1.014 1.000-1.030 Urine Protein TRACE NEG Urine Glucose (UA) NEG NEG Urine Ketones TRACE NEG Urine Occult Blood 1+ NEG Urine Nitrite NEG NEG Urine Bilirubin NEG NEG Urine Urobilinogen NEG NEG Urine Leukocyte Esterase MODERATE NEG Urine WBC (Auto) 10-30 0-5 /hpf Urine RBC (Auto) 5-10 0-4 /hpf Urine Hyaline Casts (Auto) 0 0-5 /lpf Urine Epithelial Cells (Auto) >30 0-5 /lpf Urine Bacteria (Auto) 1+ NEG Urine Renal Epithelial Cells 0-5 /lpf Microbiology Results 10/12/16 Blood Culture, Received Pending 10/12/16 Blood Culture, Received Pending 10/12/16 Gram Stain, Received Pending 10/12/16 Sputum Culture, Received Pending 10/12/16 Urine Culture, Received Pending Diagnostic Radiology ABD/PELVIS CT IMPRESSION: 1. Interval sigmoid resection with creation of a left lower quadrant ostomy 2. No evidence of bowel obstruction. No evidence of free air 3. Infiltration and nodularity of the mid pelvic mesenteric fat, likely postsurgical 4. No evidence of a drainable abscess 5. Mild retroperitoneal and pelvic lymphadenopathy, likely postsurgical. 6. 3 cm soft tissue nodule adjacent to the sigmoid stump, likely postsurgical. 7. Persistent erosive/destructive changes involving the right acetabulum. Joint effusion. Possible sinus tract to the right lateral skin surface 8. Bibasilar pulmonary opacities likely atelectatic CXR IMPRESSION: 1. Interval removal of the left-sided PICC catheter 2. Cardiomegaly with persistent pulmonary vascular congestion 3. Low lung volumes with left basilar atelectasis/consolidation 4. Equivocal small left pleural effusion CT HEAD IMPRESSION: No acute intracranial findings Impression Assessment and Plan ALTERED MENTAL STATUS; LIKELY SECONDARY TO METABOLIC ENCEPHALOPATHY FROM RECURRENT UTI pt presents with lethargy from [facility]; chronic indwelling kohli for neurogenic bladder -admit to telemetry -pt is afebrile with no leukocytosis -urine cx last admission grew E.Coli and Pseudomonas-->treated with Imipenum -UA 1+ bacteria -blood and urine cx-pending -start IVF and Cefepime -replace kohli cath -consult ID for recurrent UTIs, possible suppressive therapy ACUTE RENAL FAILURE ON CKD 3 -creatinine increased to 1.9 (baseline 1.2); likely dehydrated -hold diuretics -gentle IV fluids -continue to monitor with prp and avoid nephrotoxic agents when able RECENT SIGMOID COLECTOMY FOR SIGMOID VOLVULUS -colostomy functioning well per SNF -CT abd/pelvis: no acute process PAROXYSMAL AFIB -cont Coumadin; INR subtherapeutic at 1.5 -bridge with Lovenox until INR therapeutic -continue to monitor INR daily DIASTOLIC CHF -recent echo EF 60-65% -holding Lasix for now due to elevated creatinine -monitor volume status DM 2 -recent A1C 7.5 -hold oral agents -start ISS -monitor BSG AC HS HTN -stable -cont Norvasc and sotalol -monitor DVT PROPHYLAXIS -cont Coumadin; bridge with Lovenox until INR therapeutic CODE STATUS -DNR per discussion with patient's cousin at bedside DISPO Pt seen in collaboration with Dr. Turner. Please see his addendum for further details. Thanks! -Of note: patient will be followed by Dr. Chung starting tomorrow AM. WALLACE Gould (cousin) contact number [phone] Advanced Directives Existing Living Will: Yes Existing Power of Senior Revenue Accountant: Yes VTE Prophylaxis VTE Risk Assessment Done? Y/N: Yes Risk Level: High
[2016-10-12] MEDS: CEFEPIME IV 2000 MG in DEXTROSE 5% 100ML IV SCH (19:56)
--- NOTE | 2016-10-12 20:00 | Medical Consult ---
Consultation Date of Consultation: Oct 12, 2016. Attending Physician: Angela Chung DO Reason for Consultation: Recurrent urinary tract infection History of Present Illness 76-year-old male well known to the Infectious Disease service with history of neurogenic bladder and recurrent urinary tract infections associated with encephalopathy, hospitalized in September with sigmoid volvulus requiring surgical resection and ostomy placement. He is now admitted with 1 day history of acute change in mental status with abnormal urinalysis consistent with previous episodes of sepsis with urinary tract infection. Prior culture positive for E coli and Pseudomonas. Patient has been started empirically on imipenem. Blood cultures are no growth today, urine culture is pending. CT scan of the abdomen and pelvis, read by me, shows no obvious acute process. No report of significant fever. Past Medical/Surgical History Medical Problems: (1) Abdominal pain Status: Acute (2) Altered mental status Status: Acute (3) Altered mental status Status: Acute (4) Altered mental status Status: Acute (5) Altered mental status Status: Acute (6) Diffuse abdominal pain Status: Acute (7) Dislodged Cantrell catheter Status: Acute (8) Fever Status: Acute (9) Hematuria Status: Acute (10) Hyperglycemia Status: Acute (11) Hypomagnesemia Status: Acute (12) Hypoxia Status: Acute (13) Hypoxia Status: Acute (14) Hypoxia Status: Acute (15) Lactic acid acidosis Status: Acute (16) Left lower lobe pneumonia Status: Acute (17) Leukocytosis Status: Acute (18) Pneumonia Status: Acute (19) Renal insufficiency Status: Acute (20) Sepsis Status: Acute (21) Sigmoid volvulus Status: Acute (22) Sigmoid volvulus Status: Acute (23) UTI (urinary tract infection) Status: Acute (24) UTI (urinary tract infection) Status: Acute (25) UTI (urinary tract infection) Status: Acute (26) UTI (urinary tract infection) Status: Acute (27) UTI (urinary tract infection) Status: Acute Medical Problems: (1) Altered mental status (2) Atrial fibrillation (3) Chronic indwelling Cantrell catheter (4) Coronary artery disease (5) Dyslipidemia (6) History of myocardial infarction (7) Hypertension (8) Lumbar discitis (9) Neurogenic bladder (10) Osteoarthritis (11) Paraplegia (12) Pulmonary nodule (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 (14) UTI (urinary tract infection) (15) UTI (urinary tract infection) (16) Warfarin anticoagulation Surgical Problems: (1) H/O inguinal hernia repair (2) H/O resection of large bowel (3) H/O sinus surgery (4) Status post hip hemiarthroplasty (5) Status post removal right hip prosthesis (6) Status post total knee replacement Family History Cerebral aneurysm BROTHER Colon cancer SISTER Diabetes mellitus MOTHER Heart disease FATHER MOTHER Hypertension FATHER Prostate cancer FATHER Stroke FATHER Social History Smoking Status: Former Smoker Alcohol Use: none Drug Use: none Marital Status: single Housing Status: lives alone, half-way Occupation Status: retired Allergies Coded Allergies: Latex (Verified Allergy, Mild, UNSURE - FROM [facility], 10/12/16) Macrolides and Ketolides (Verified Allergy, Unknown, [facility], 10/12/16) Azithromycin (Verified Adverse Reaction, Mild, nausea, 10/12/16) with nausea and diarrhea Current Inpatient Medications Current Inpatient Medications Medications (Trade) Dose Ordered Sig/Betzy Route Start Time Stop Time Status Last Admin Dose Admin Acetaminophen (Tylenol Tab) 650 mg Q4H PRN PO 10/12/16 12:15 11/11/16 12:14 Ondansetron HCl 4 mg 4 mg Q6H PRN IV 10/12/16 12:15 11/11/16 12:14 Sodium Chloride (Nss 1000ml) 1,000 ml @ 80 mls/hr [id number] IV 10/12/16 12:15 11/11/16 12:14 10/12/16 15:00 80 MLS/HR Glucose (Glucose 40% Gel) 15-30 GRAMS 15 GRAMS... UD PRN PO 10/12/16 12:30 11/11/16 12:29 Glucose (Glucose Chew Tab) 4-8 Tablets 4 Tabl... UD PRN PO 10/12/16 12:30 11/11/16 12:29 Dextrose (Dextrose 50% 50ML Syringe) 25-50ML OF 50% DW IV FOR... UD PRN IV 10/12/16 12:30 11/11/16 12:29 Glucagon (Glucagon Inj) 1 mg UD PRN SQ 10/12/16 12:30 11/11/16 12:29 Amitriptyline HCl (Elavil Tab) 10 mg BID PO 10/12/16 21:00 11/11/16 20:59 Amlodipine Besylate (Norvasc Tab) 5 mg DAILY PO 10/13/16 09:00 11/12/16 08:59 Aspirin (Aspirin Chew) 81 mg QAM PO 10/13/16 09:00 11/12/16 08:59 Baclofen (Lioresal Tab) 20 mg BID PO 10/12/16 21:00 11/11/16 20:59 Diclofenac Sodium (Voltaren 1% Top Gel) 1 appln TID EXT 10/12/16 14:00 11/11/16 13:59 Duloxetine HCl (Cymbalta Cap) 60 mg QAM PO 10/13/16 09:00 11/12/16 08:59 Ferrous Sulfate (Feosol Tab) 325 mg BIDM PO 10/12/16 16:45 11/11/16 17:59 Albuterol/ Ipratropium (Duoneb) 3 ml Q6R INH 10/12/16 15:00 11/11/16 14:59 Magnesium Hydroxide (Milk Of Magnesia Susp) 30 ml DAILY PRN PO 10/12/16 12:30 11/11/16 12:29 Oxycodone HCl (Roxicodone Immediate Rel Tab) 5 mg Q4H PRN PO 10/12/16 12:30 10/26/16 12:29 Pantoprazole Sodium (Protonix Tab) 40 mg QAM PO 10/13/16 09:00 11/12/16 08:59 Pregabalin (Lyrica Cap) 75 mg BID PO 10/12/16 21:00 11/11/16 20:59 Rosuvastatin Calcium (Crestor Tab) 10 mg DAILY PO 10/13/16 09:00 11/12/16 08:59 Sodium Chloride ([place]eton Nasal [place]) 2 sprays Q4H PRN SABRINA 10/12/16 12:30 11/11/16 12:29 Senna/Docusate Sodium (Senokot S Tab) 2 tab DAILY PO 10/13/16 09:00 11/12/16 08:59 Sodium Biphosphate/ Sodium Phosphate (Fleet Enema) 132 ml DAILY PRN PA 10/12/16 12:30 11/11/16 12:29 Sotalol HCl (Betapace Tab) 80 mg BID PO 10/12/16 21:00 11/11/16 20:59 Warfarin Sodium (Coumadin Tab) 2 mg SuTuThSa@1600 PO 10/12/16 18:00 11/11/16 17:59 Nitroglycerin 0.4 mg 0.4 mg UD PRN SL 10/12/16 12:45 11/11/16 12:44 Cefepime HCl/ Dextrose (Maxipime IV/D5 100ml) 112.5 ml @ 225 mls/hr DAILY@1600 IV 10/12/16 16:00 10/22/16 15:59 Insulin Aspart (novoLOG ASPART) SLIDING SCALE If C... Q6 SC 10/12/16 18:00 11/11/16 17:59 10/12/16 18:05 2 UNITS Warfarin Sodium (Coumadin Tab) 4 mg MoWeFr@1600 PO 10/13/16 16:00 11/12/16 15:59 Enoxaparin Sodium (Lovenox Inj) 40 mg HS SQ 10/12/16 21:00 11/11/16 20:59 Review of Systems Not obtainable because of patient's mental status Physical Exam Date Time Temp Pulse Resp B/P Pulse Ox O2 Delivery O2 Flow Rate FiO2 10/12/16 19:22 36.1 80 18 167/91 96 Nasal Cannula 3.0 10/12/16 16:00 99 Nasal Cannula 3.0 10/12/16 14:35 36.6 72 21 124/85 99 Nasal Cannula 3.0 10/12/16 14:25 62 18 96 10/12/16 12:46 58 18 116/67 98 Room Air 10/12/16 11:45 96 Nasal Cannula 3.0 10/12/16 10:23 59 18 111/69 96 Nasal Cannula 3.0 10/12/16 09:51 62 10/12/16 09:23 87 Room Air 10/12/16 09:23 94 Nasal Cannula 3.0 10/12/16 09:13 36.8 67 18 115/96 87 Room Air General Appearance: WD/WN, no apparent distress Head: normocephalic, atraumatic Eyes: normal inspection, EOMI, sclerae normal ENT: normal ENT inspection, pharynx normal Neck: supple, no adenopathy, thyroid normal, trachea midline Respiratory/Chest: chest non-tender, lungs clear, normal breath sounds, no respiratory distress Cardiovascular: regular rate, rhythm, no gallop, no murmur Abdomen/GI: normal bowel sounds, soft, no organomegaly, + pertinent finding ( ostomy site appears clean, surgical incision clean) Back: normal inspection, no CVA tenderness Extremities/Musculoskelatal: no calf tenderness, non-tender, + pertinent finding ( chronic venous stasis changes) Neurologic/Psych: alert, + disoriented Skin: normal color, no rash Lymphatic: no adenopathy Laboratory Results Date/Time Source Procedure Growth Status 10/12/16 09:36 Blood Blood Culture Pending Received 10/12/16 09:17 Blood Blood Culture Pending Received 10/12/16 10:25 Sputum Expectorated Sputum Gram Stain Pending Received 10/12/16 10:25 Sputum Expectorated Sputum Sputum Culture Pending Received 10/12/16 10:25 Urine,Catheterized Urine Culture Pending Received Last 24 Hours Test 10/12/16 09:36 10/12/16 09:45 10/12/16 10:25 10/12/16 12:56 White Blood Count 9.30 K/uL Red Blood Count 3.72 M/uL Hemoglobin 9.8 g/dL Hematocrit 31.2 % Mean Corpuscular Volume 83.9 fL Mean Corpuscular Hemoglobin 26.3 pg Mean Corpuscular Hemoglobin Concent 31.4 g/dl Platelet Count 308 K/uL Mean Platelet Volume 9.4 fL Neutrophils (%) (Auto) 69.7 % Lymphocytes (%) (Auto) 14.7 % Monocytes (%) (Auto) 7.2 % Eosinophils (%) (Auto) 4.1 % Basophils (%) (Auto) 0.2 % Neutrophils # (Auto) 6.48 K/uL Lymphocytes # (Auto) 1.37 K/uL Monocytes # (Auto) 0.67 K/uL Eosinophils # (Auto) 0.38 K/uL Basophils # (Auto) 0.02 K/uL RDW Standard Deviation 55.1 fL RDW Coefficient of Variation 18.0 % Immature Granulocyte % (Auto) 4.1 % Immature Granulocyte # (Auto) 0.38 K/uL Nucleated RBC Absolute Count (auto) 0.03 K/uL Nucleated Red Blood Cells % 0.3 % Erythrocyte Sedimentation Rate 77 mm/hr Prothrombin Time 16.8 SECONDS Prothromb Time International Ratio 1.5 Activated Partial Thromboplast Time 34.3 SECONDS Partial Thromboplastin Ratio 1.3 Venous Blood pH 7.35 Venous Blood Partial Pressure CO2 72 mmHg Venous Blood Partial Pressure O2 26 mmHg Venous Blood HCO3 39 mmol/L Venous Blood Oxygen Saturation < 60.0 % Venous Blood Base Excess 10.6 mmol/L Sodium Level 135 mmol/L Potassium Level 3.8 mmol/L Chloride Level 92 mmol/L Carbon Dioxide Level 39 mmol/L Anion Gap 4.0 mmol/L Blood Urea Nitrogen 30 mg/dl Creatinine 1.90 mg/dl Est Creatinine Clear Calc Drug Dose 41.9 ml/min Estimated GFR () 39.4 Estimated GFR (Non- 34.0 BUN/Creatinine Ratio 15.6 Random Glucose 136 mg/dl Calcium Level 8.5 mg/dl Phosphorus Level 3.4 mg/dl Magnesium Level 1.8 mg/dl Total Bilirubin 0.5 mg/dl Aspartate Amino Transf (AST/SGOT) 16 U/L Alanine Aminotransferase (ALT/SGPT) 10 U/L Alkaline Phosphatase 109 U/L Ammonia < 10.0 umol/L Total Creatine Kinase 56 U/L Creatine Kinase MB 1.0 ng/ml Creatine Kinase MB Ratio 1.8 Troponin I < 0.015 ng/ml C-Reactive Protein 8.04 mg/dl Pro-B-Type Natriuretic Peptide 749 pg/ml Total Protein 8.1 gm/dl Albumin 2.6 gm/dl Globulin 5.5 gm/dl Albumin/Globulin Ratio 0.5 Lipase 111 U/L Bedside Lactic Acid Venous 1.87 mmol/L Urine Color YELLOW Urine Appearance CLEAR Urine pH 5.0 Urine Specific Rheems 1.014 Urine Protein TRACE Urine Glucose (UA) NEG Urine Ketones TRACE Urine Occult Blood 1+ Urine Nitrite NEG Urine Bilirubin NEG Urine Urobilinogen NEG Urine Leukocyte Esterase MODERATE Urine WBC (Auto) 10-30 /hpf Urine RBC (Auto) 5-10 /hpf Urine Hyaline Casts (Auto) 0 /lpf Urine Epithelial Cells (Auto) >30 /lpf Urine Bacteria (Auto) 1+ Urine Renal Epithelial Cells /lpf Arterial Blood pH 7.40 Arterial Blood Partial Pressure CO2 60 mmHg Arterial Blood Partial Pressure O2 81 mm/Hg Arterial Blood HCO3 37 mmol/L Arterial Blood Oxygen Saturation 94.9 % Arterial Blood Base Excess 10.0 mEq/L Arterial Blood Gas Delivery 3 L Junior Test POS Test 10/12/16 14:36 10/12/16 15:57 10/12/16 17:44 Bedside Glucose 205 mg/dl 212 mg/dl Lactic Acid Level 1.7 mmol/L Patient Name: CARLY BELLA Unit Number: [id number] Dictated: 10/12/161027 Transcribed: 10/12/161027 ARG Printed Date/Time: [~ rep prt dt]/[~ rep prt tm] [~ rep ct labl] - [~ rep ct ivnm] [facility] [place] [address] Dictated: 10/12/161027 Transcribed: 10/12/161027 ARG Printed Date/Time: [~ rep prt dt]/[~ rep prt tm] [~ rep ct labl] - [~ rep ct ivnm] CT SCAN OF THE ABDOMEN AND PELVIS WITHOUT CONTRAST CLINICAL HISTORY: Diffuse abdominal pain COMPARISON STUDY: 09/28/2016 TECHNIQUE: CT scan of the abdomen and pelvis was performed from the lung bases to the proximal femurs. Images are reviewed in the axial, sagittal, and coronal planes. IV contrast was not administered for this examination. CT DOSE: 3271.15 mGy.cm FINDINGS: Lower chest: There are bibasilar opacities, likely atelectatic. Liver: The unenhanced liver is normal in size, contour, and attenuation. There is no intrahepatic biliary ductal dilatation. Gallbladder: Unremarkable. Spleen: Normal in size and attenuation. Pancreas: Unremarkable. Adrenal glands: Unremarkable. Kidneys: No renal, ureteral, or bladder calculi are visualized. Bowel: There are no transition zones indicate bowel obstruction. There is been interval surgery. There is a left lower quadrant ostomy. There is infiltration of the anterior abdominal wall fat consistent with recent surgery. There is a suture line within the sigmoid colon. The patient appears be status post partial sigmoid resection. There is infiltration of the mid and upper pelvic mesentery likely secondary to recent surgery. There is a 3 cm soft tissue nodule adjacent sigmoid stump. This likely represents postsurgical change, possibly representing a small hematoma. Peritoneum: There is no intraperitoneal free air or abdominal ascites. Vasculature: The abdominal aorta is normal in course and caliber. Adenopathy: There are mildly enlarged para-aortic and iliac lymph nodes, similar to the preceding study. Pelvic viscera: The bladder, and pelvic viscera are unremarkable. Skeletal structures: The right femoral head is absent. There are postsurgical changes in the right acetabulum. There is right acetabular erosion. There is a right hip joint effusion. There is a possible sinus tract to the right lateral skin surface.. IMPRESSION: 1. Interval sigmoid resection with creation of a left lower quadrant ostomy 2. No evidence of bowel obstruction. No evidence of free air 3. Infiltration and nodularity of the mid pelvic mesenteric fat, likely postsurgical 4. No evidence of a drainable abscess 5. Mild retroperitoneal and pelvic lymphadenopathy, likely postsurgical. 6. 3 cm soft tissue nodule adjacent to the sigmoid stump, likely postsurgical. 7. Persistent erosive/destructive changes involving the right acetabulum. Joint effusion. Possible sinus tract to the right lateral skin surface 8. Bibasilar pulmonary opacities likely atelectatic Electronically signed by: Hitesh Fajardo M.D. 10/12/2016 10:42 AM Dictated Date/Time: 10/12/2016 10:28 AM The status of this report is Signed. Draft = Not yet reviewed or approved by Radiologist. Signed = Reviewed and approved by Radiologist. <AttendingPhy></AttendingPhy> <FamilyPhy>Lilo Davis M.D.</FamilyPhy> < PrimaryPhy>Lilo Davis M.D.</PrimaryPhy> <UnitNumber>[id number]</UnitNumber > <VisitNumber>[id number]</VisitNumber> <PatientName>CARLY BELLA</ PatientName> <DateOfBirth>1940</DateOfBirth> <Location>[facility]</Location> < ServiceDate>10/12/16</ServiceDate> <MNE>ESINDI</MNE> <OrderingPhy>Hu Larios D.O.</OrderingPhy> <OrderingPhyMNE>f rep ord dr wells</OrderingPhyMNE> <DictatingPhyMNE>f rep dict dr wells</DictatingPhyMNE> <CCListMNE>f rep ct vanessae</ CCListMNE> <AdmittingPhyMNE>f pt admit dr wells</AdmittingPhyMNE> <AttendingPhyMNE >f pt attend dr wells</AttendingPhyMNE> <ConsultingPhyMNE>f pt consult dr wells</ConsultingPhyMNE> <FamilyPhyMNE>f pt fam dr wells</FamilyPhyMNE> <OtherPhyMNE>f pt other dr wells</OtherPhyMNE> < PrimaryPhyMNE>f pt prim care dr wells</PrimaryPhyMNE> <ReferringPhyMNE>f pt referring dr wells</ReferringPhyMNE> Assessment & Plan 76-year-old male with history of neurogenic bladder and recurrent urinary tract infections with encephalopathy, status post recent hospitalization for sigmoid volvulus requiring resection, now presents with 1 day history of acute change in mental status and abnormal urinalysis, consistent with prior episodes of sepsis with urinary tract infection and encephalopathy. Given prior culture results showing E coli and Pseudomonas, imipenem appropriate therapy. We will await final culture results and adjust antibiotics accordingly. Recommend orthopedic consultation regarding right hip process. Will discuss with all involved and follow.
[2016-10-12] MEDS: SOTALOL HCL 80 MG TAB PO SCH (21:00)
[2016-10-12] MEDS: BACLOFEN TAB 20 MG TAB PO SCH (21:00)
[2016-10-12] MEDS: AMITRIPTYLINE HCL 10 MG TAB PO SCH (21:00)
[2016-10-12] MEDS ORDERED: CEFEPIME IV 2,000 MG in DEXTROSE 5% 100ML 100 ML IV SCH (21:00)
[2016-10-12] MEDS: PREGABALIN 75 MG CAP PO SCH (21:00)
[2016-10-12] MEDS: ALBUT/IPRATROP 3MG/0.5MG NEB 3 ML VIAL INH SCH (21:01)
[2016-10-12] MEDS ORDERED: METOPROLOL TARTRATE 1 MG/ML VIAL IV PRN (21:45)
[2016-10-12] MEDS: ENOXAPARIN 40 MG/0.4 ML SYR SQ SCH (22:06)
[2016-10-13] VITALS (13 sets, daily range): BP systolic 114–154; BP diastolic 72–90; PULSE 60–82; TEMP 36.4–37.2; O2SAT 91–100
[2016-10-13] MEDS: ALBUT/IPRATROP 3MG/0.5MG NEB 3 ML VIAL INH SCH ×4 (01:40→19:10)
[2016-10-13] MEDS: SODIUM CHLORIDE 0.9% 1000ML 1,000 ML IV SCH ×2 (02:30→15:38)
[2016-10-13] MEDS: INSULIN ASPART 100 UNITS/ML 3 ML PEN SC SCH ×4 (05:54→20:44)
[2016-10-13 06:39] LABS: HEMATOCRIT 31.2 % (42-52); MEAN CELL VOLUME 83.9 fL (80-100); MEAN CORPUSCULAR HEMOGLOBIN 26.1 pg (25-34); MEAN CORPUSCULAR HGB CONC 31.1 g/dl (32-36); MEAN PLATELET VOLUME 9.6 fL (7.4-10.4); PLATELET COUNT 308 K/uL (130-400); RED BLOOD COUNT 3.72 M/uL (4.7-6.1); WHITE BLOOD COUNT 6.29 K/uL (4.8-10.8)
[2016-10-13 06:47] LABS: INR 1.7 (0.9-1.1); PROTHROMBIN TIME (PATIENT) 18.9 SECONDS (9.0-12.0)
[2016-10-13 07:10] LABS: BUN/CREATININE RATIO 19.4 (10-20); CALCIUM 8.6 mg/dl (8.5-10.1); CREATININE 1.4 mg/dl (0.60-1.40); POTASSIUM 4.2 mmol/L (3.5-5.1)
--- NOTE | 2016-10-13 08:42 | Progress Note ---
Subjective Date of Service: Oct 13, 2016. Subjective Pt evaluation today including: conversation w/ patient, physical exam, chart review, lab review, review of studies, review of inpatient medication list Saw/examined the patient in room 208 He is awake and alert today, cooperative during exam and answering questions Does not recall what happened after he went to [facility] States he was doing fine when he first got there, no chest pain, no shortness of breath No symptoms currently; eating properly, +ostomy draining appropriately No significant erythema around surgical site Problem List Medical Problems: (1) Abdominal pain Status: Acute (2) Altered mental status Status: Acute (3) Altered mental status Status: Acute (4) Altered mental status Status: Acute (5) Altered mental status Status: Acute (6) Diffuse abdominal pain Status: Acute (7) Dislodged Cantrell catheter Status: Acute (8) Fever Status: Acute (9) Hematuria Status: Acute (10) Hyperglycemia Status: Acute (11) Hypomagnesemia Status: Acute (12) Hypoxia Status: Acute (13) Hypoxia Status: Acute (14) Hypoxia Status: Acute (15) Lactic acid acidosis Status: Acute (16) Left lower lobe pneumonia Status: Acute (17) Leukocytosis Status: Acute (18) Pneumonia Status: Acute (19) Renal insufficiency Status: Acute (20) Sepsis Status: Acute (21) Sigmoid volvulus Status: Acute (22) Sigmoid volvulus Status: Acute (23) UTI (urinary tract infection) Status: Acute (24) UTI (urinary tract infection) Status: Acute (25) UTI (urinary tract infection) Status: Acute (26) UTI (urinary tract infection) Status: Acute (27) UTI (urinary tract infection) Status: Acute Review of Systems Constitutional: + weakness, No chills, No fever Respiratory: No cough, No shortness of breath, No sputum Cardiac: No chest pain Abdomen: No nausea, No pain, No vomiting Heme: No abnormal bleeding/bruising Medications Current Inpatient Medications Medications (Trade) Dose Ordered Sig/Betzy Route Start Time Stop Time Status Last Admin Dose Admin Acetaminophen (Tylenol Tab) 650 mg Q4H PRN PO 10/12/16 12:15 11/11/16 12:14 Ondansetron HCl 4 mg 4 mg Q6H PRN IV 10/12/16 12:15 11/11/16 12:14 Sodium Chloride (Nss 1000ml) 1,000 ml @ 80 mls/hr [id number] IV 10/12/16 12:15 11/11/16 12:14 10/13/16 02:30 80 MLS/HR Glucose (Glucose 40% Gel) 15-30 GRAMS 15 GRAMS... UD PRN PO 10/12/16 12:30 11/11/16 12:29 Glucose (Glucose Chew Tab) 4-8 Tablets 4 Tabl... UD PRN PO 10/12/16 12:30 11/11/16 12:29 Dextrose (Dextrose 50% 50ML Syringe) 25-50ML OF 50% DW IV FOR... UD PRN IV 10/12/16 12:30 11/11/16 12:29 Glucagon (Glucagon Inj) 1 mg UD PRN SQ 10/12/16 12:30 11/11/16 12:29 Amitriptyline HCl (Elavil Tab) 10 mg BID PO 10/12/16 21:00 11/11/16 20:59 Amlodipine Besylate (Norvasc Tab) 5 mg DAILY PO 10/13/16 09:00 11/12/16 08:59 Aspirin (Aspirin Chew) 81 mg QAM PO 10/13/16 09:00 11/12/16 08:59 Baclofen (Lioresal Tab) 20 mg BID PO 10/12/16 21:00 11/11/16 20:59 Diclofenac Sodium (Voltaren 1% Top Gel) 1 appln TID EXT 10/12/16 14:00 11/11/16 13:59 Duloxetine HCl (Cymbalta Cap) 60 mg QAM PO 10/13/16 09:00 11/12/16 08:59 Ferrous Sulfate (Feosol Tab) 325 mg BIDM PO 10/12/16 16:45 11/11/16 17:59 Albuterol/ Ipratropium (Duoneb) 3 ml Q6R INH 10/12/16 15:00 11/11/16 14:59 10/13/16 07:24 3 ML Magnesium Hydroxide (Milk Of Magnesia Susp) 30 ml DAILY PRN PO 10/12/16 12:30 11/11/16 12:29 Oxycodone HCl (Roxicodone Immediate Rel Tab) 5 mg Q4H PRN PO 10/12/16 12:30 10/26/16 12:29 Pantoprazole Sodium (Protonix Tab) 40 mg QAM PO 10/13/16 09:00 11/12/16 08:59 Pregabalin (Lyrica Cap) 75 mg BID PO 10/12/16 21:00 11/11/16 20:59 Rosuvastatin Calcium (Crestor Tab) 10 mg DAILY PO 10/13/16 09:00 11/12/16 08:59 Sodium Chloride (Stone Nasal [place]) 2 sprays Q4H PRN SABRINA 10/12/16 12:30 11/11/16 12:29 Senna/Docusate Sodium (Senokot S Tab) 2 tab DAILY PO 10/13/16 09:00 11/12/16 08:59 Sodium Biphosphate/ Sodium Phosphate (Fleet Enema) 132 ml DAILY PRN ME 10/12/16 12:30 11/11/16 12:29 Sotalol HCl (Betapace Tab) 80 mg BID PO 10/12/16 21:00 11/11/16 20:59 Warfarin Sodium (Coumadin Tab) 2 mg SuTuThSa@1600 PO 10/12/16 18:00 11/11/16 17:59 Nitroglycerin 0.4 mg 0.4 mg UD PRN SL 10/12/16 12:45 11/11/16 12:44 Cefepime HCl/ Dextrose (Maxipime IV/D5 100ml) 112.5 ml @ 225 mls/hr DAILY@1600 IV 10/12/16 16:00 10/22/16 15:59 10/12/16 19:56 225 MLS/HR Insulin Aspart (novoLOG ASPART) SLIDING SCALE If C... Q6 SC 10/12/16 18:00 11/11/16 17:59 10/13/16 05:54 1 UNITS Warfarin Sodium (Coumadin Tab) 4 mg MoWeFr@1600 PO 10/13/16 16:00 11/12/16 15:59 Enoxaparin Sodium (Lovenox Inj) 40 mg HS SQ 10/12/16 21:00 11/11/16 20:59 10/12/16 22:06 40 MG Metoprolol Tartrate (Lopressor Iv) 5 mg Q6 PRN IV 10/12/16 21:45 11/11/16 21:44 Objective Vital Signs Date Time Temp Pulse Resp B/P Pulse Ox O2 Delivery O2 Flow Rate FiO2 10/13/16 08:03 37.2 73 19 125/90 91 10/13/16 07:25 82 16 95 Nasal Cannula 2.0 10/13/16 04:30 96 Nasal Cannula 2.0 10/13/16 03:31 36.5 76 18 130/78 92 Nasal Cannula 2.0 10/13/16 01:40 78 16 95 Nasal Cannula 2.0 10/13/16 00:05 95 Nasal Cannula 2.0 10/12/16 23:40 36.8 78 21 116/82 99 Nasal Cannula 2.5 10/12/16 21:01 80 16 95 Nasal Cannula 2.0 10/12/16 20:00 96 Nasal Cannula 3.0 10/12/16 19:22 36.1 80 18 167/91 96 Nasal Cannula 3.0 10/12/16 16:00 99 Nasal Cannula 3.0 10/12/16 14:35 36.6 72 21 124/85 99 Nasal Cannula 3.0 10/12/16 14:25 62 18 96 10/12/16 12:46 58 18 116/67 98 Room Air 10/12/16 11:45 96 Nasal Cannula 3.0 10/12/16 10:23 59 18 111/69 96 Nasal Cannula 3.0 10/12/16 09:51 62 10/12/16 09:23 87 Room Air 10/12/16 09:23 94 Nasal Cannula 3.0 10/12/16 09:13 36.8 67 18 115/96 87 Room Air Physical Exam General Appearance: no apparent distress, + pertinent finding (mildly disoriented, but awake/alert; paraplegic male) Respiratory/Chest: chest non-tender, lungs clear, normal breath sounds, no respiratory distress, no accessory muscle use Cardiovascular: regular rate, rhythm, no murmur Abdomen: normal bowel sounds, non tender, soft, + pertinent finding ( incisional scar; margie in place, no significant erythema around surgical site ; ostomy in place, draining stool) Extremities: no pedal edema, + pertinent finding (+venous stasis changes, no significant erythema noted; not warm to touch) Neurologic/Psychiatric: no motor/sensory deficits, alert, normal mood/affect, + disoriented (oriented to person, confused about why he is here and not [facility]) Skin: + pertinent finding (venous stasis changes, multiple skin ulcerations, no erythema, not warm to touch) Laboratory Results Last 24 Hours Test 10/12/16 09:36 10/12/16 09:45 10/12/16 10:25 10/12/16 12:56 White Blood Count 9.30 K/uL Red Blood Count 3.72 M/uL Hemoglobin 9.8 g/dL Hematocrit 31.2 % Mean Corpuscular Volume 83.9 fL Mean Corpuscular Hemoglobin 26.3 pg Mean Corpuscular Hemoglobin Concent 31.4 g/dl Platelet Count 308 K/uL Mean Platelet Volume 9.4 fL Neutrophils (%) (Auto) 69.7 % Lymphocytes (%) (Auto) 14.7 % Monocytes (%) (Auto) 7.2 % Eosinophils (%) (Auto) 4.1 % Basophils (%) (Auto) 0.2 % Neutrophils # (Auto) 6.48 K/uL Lymphocytes # (Auto) 1.37 K/uL Monocytes # (Auto) 0.67 K/uL Eosinophils # (Auto) 0.38 K/uL Basophils # (Auto) 0.02 K/uL RDW Standard Deviation 55.1 fL RDW Coefficient of Variation 18.0 % Immature Granulocyte % (Auto) 4.1 % Immature Granulocyte # (Auto) 0.38 K/uL Nucleated RBC Absolute Count (auto) 0.03 K/uL Nucleated Red Blood Cells % 0.3 % Erythrocyte Sedimentation Rate 77 mm/hr Prothrombin Time 16.8 SECONDS Prothromb Time International Ratio 1.5 Activated Partial Thromboplast Time 34.3 SECONDS Partial Thromboplastin Ratio 1.3 Venous Blood pH 7.35 Venous Blood Partial Pressure CO2 72 mmHg Venous Blood Partial Pressure O2 26 mmHg Venous Blood HCO3 39 mmol/L Venous Blood Oxygen Saturation < 60.0 % Venous Blood Base Excess 10.6 mmol/L Sodium Level 135 mmol/L Potassium Level 3.8 mmol/L Chloride Level 92 mmol/L Carbon Dioxide Level 39 mmol/L Anion Gap 4.0 mmol/L Blood Urea Nitrogen 30 mg/dl Creatinine 1.90 mg/dl Est Creatinine Clear Calc Drug Dose 41.9 ml/min Estimated GFR () 39.4 Estimated GFR (Non- 34.0 BUN/Creatinine Ratio 15.6 Random Glucose 136 mg/dl Calcium Level 8.5 mg/dl Phosphorus Level 3.4 mg/dl Magnesium Level 1.8 mg/dl Total Bilirubin 0.5 mg/dl Aspartate Amino Transf (AST/SGOT) 16 U/L Alanine Aminotransferase (ALT/SGPT) 10 U/L Alkaline Phosphatase 109 U/L Ammonia < 10.0 umol/L Total Creatine Kinase 56 U/L Creatine Kinase MB 1.0 ng/ml Creatine Kinase MB Ratio 1.8 Troponin I < 0.015 ng/ml C-Reactive Protein 8.04 mg/dl Pro-B-Type Natriuretic Peptide 749 pg/ml Total Protein 8.1 gm/dl Albumin 2.6 gm/dl Globulin 5.5 gm/dl Albumin/Globulin Ratio 0.5 Lipase 111 U/L Bedside Lactic Acid Venous 1.87 mmol/L Urine Color YELLOW Urine Appearance CLEAR Urine pH 5.0 Urine Specific [place] 1.014 Urine Protein TRACE Urine Glucose (UA) NEG Urine Ketones TRACE Urine Occult Blood 1+ Urine Nitrite NEG Urine Bilirubin NEG Urine Urobilinogen NEG Urine Leukocyte Esterase MODERATE Urine WBC (Auto) 10-30 /hpf Urine RBC (Auto) 5-10 /hpf Urine Hyaline Casts (Auto) 0 /lpf Urine Epithelial Cells (Auto) >30 /lpf Urine Bacteria (Auto) 1+ Urine Renal Epithelial Cells /lpf Arterial Blood pH 7.40 Arterial Blood Partial Pressure CO2 60 mmHg Arterial Blood Partial Pressure O2 81 mm/Hg Arterial Blood HCO3 37 mmol/L Arterial Blood Oxygen Saturation 94.9 % Arterial Blood Base Excess 10.0 mEq/L Arterial Blood Gas Delivery 3 L Junior Test POS Test 10/12/16 14:36 10/12/16 15:57 10/12/16 17:44 10/12/16 23:53 Bedside Glucose 205 mg/dl 212 mg/dl 174 mg/dl Lactic Acid Level 1.7 mmol/L Test 10/13/16 05:49 10/13/16 05:59 Bedside Glucose 178 mg/dl White Blood Count 6.29 K/uL Red Blood Count 3.72 M/uL Hemoglobin 9.7 g/dL Hematocrit 31.2 % Mean Corpuscular Volume 83.9 fL Mean Corpuscular Hemoglobin 26.1 pg Mean Corpuscular Hemoglobin Concent 31.1 g/dl RDW Standard Deviation 54.8 fL RDW Coefficient of Variation 18.0 % Platelet Count 308 K/uL Mean Platelet Volume 9.6 fL Nucleated RBC Absolute Count (auto) 0.02 K/uL Nucleated Red Blood Cells % 0.3 % Prothrombin Time 18.9 SECONDS Prothromb Time International Ratio 1.7 Sodium Level 140 mmol/L Potassium Level 4.2 mmol/L Chloride Level 98 mmol/L Carbon Dioxide Level 34 mmol/L Anion Gap 8.0 mmol/L Blood Urea Nitrogen 27 mg/dl Creatinine 1.40 mg/dl Est Creatinine Clear Calc Drug Dose 55.8 ml/min Estimated GFR () 57.0 Estimated GFR (Non- 49.1 BUN/Creatinine Ratio 19.4 Random Glucose 184 mg/dl Calcium Level 8.6 mg/dl Assessment and Plan This is a 76 year old male with PMH of 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 of atrial fibrillation on anticoagulation, CKD stage 3, recurrent lower extremity cellulitis, hx. 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 at this point, it seems more likely to be related to the UTI Currently on Cefepime appreciate ID input cultures pending will transition or de-escalate if cultures allow Acute Kidney Injury superimposed on CKD stage 3 likely secondary to UTI and decreased PO intake gentle hydration creat improved from 1.9 to 1.4 Recent Colectomy s/p Colostomy patient with recurrent sigmoid volvulus requiring surgical intervention Denies nausea/vomiting or abdominal pain Abdominal CT with acute findings, chronic/post-surgical changes will need margie removed around 2 weeks after surgery date Likely ANDREW Chronic Hypercapnia ANDREW, obesity-hypoventilation paraplegia and likely atelectatic changes due to body habitus and decreased movement nocturnal bipap recommended by pulmonology during previous admission will order this; though compliance will be an issue Paroxysmal Atrial Fibrillation patient takes Coumadin for anticoagulation INR subtherapeutic, continue Coumadin and monitor INR; adjust dose if necessary continue Sotalol DM2 hold oral agents sliding scale insulin HTN blood pressure controlled continue home medications DVT ppx Coumadin DNR
[2016-10-13] MEDS: AMITRIPTYLINE HCL 10 MG TAB PO SCH ×2 (08:48→20:36)
[2016-10-13] MEDS: ROSUVASTATIN CALCIUM 10 MG TAB PO SCH (08:49)
[2016-10-13] MEDS: PREGABALIN 75 MG CAP PO SCH ×2 (08:49→20:43)
[2016-10-13] MEDS: FERROUS SULFATE 325 MG TAB PO SCH ×2 (08:50→17:34)
[2016-10-13] MEDS: PANTOprazole SOD 40 MG TAB PO SCH (08:50)
[2016-10-13] MEDS: DOCUSATE SODIUM/SENNA 50/8.6MG TAB PO SCH (08:50)
[2016-10-13] MEDS: ASPIRIN 81 MG CHEW PO SCH (08:51)
[2016-10-13] MEDS: BACLOFEN TAB 20 MG TAB PO SCH ×2 (08:51→20:37)
[2016-10-13] MEDS: SOTALOL HCL 80 MG TAB PO SCH ×2 (08:51→20:36)
[2016-10-13] MEDS: AMLODIPINE BESYLATE 5 MG TAB PO SCH (08:51)
[2016-10-13] MEDS: DICLOFENAC SOD 1% GEL 100 GM TUBE EXT SCH ×3 (08:52→20:44)
[2016-10-13] MEDS: DULOXETINE HCL 60 MG CAP PO SCH (08:52)
[2016-10-13] MEDS ORDERED: NURSING VERBAL MED ORDER ONE (09:15)
--- NOTE | 2016-10-13 09:17 | Clinical Documentation Query ---
QUERY 1 OF [address] KAY, In your clinical opinion is this patient being managed for: ( ) possible Pneumonia due to MRSA ( ) Other explanation of clinical findings (Please Explain) ( ) Unable to determine (Please Define) ( ) Need to Discuss ( ) Not Agree The medical record reflects the following clinical findings, treatment, and risk factors. Clinical Indicators: 76 yo male presenting with an altered mental status. Hypoxic on room air at 87% which improved to 94% on 3L. CXR: suggests L basal airspace opacities, inflammatory vs atelectatic. Reportedly having difficulty breathing at [facility]. ER notes lungs with scattered rhonchi throughout and significant sputum production. Treatment: duoneb, O2 support and IV solumedrol by EMS, O2 support continued, IV fluids, IV levaquin, IV rocephin, IV cefepime, ID consult, duonebs scheduled, CPAP Risk Factors: age, recent lengthy hospital stay which included surgery, DM QUERY 2 OF 2 If the UTI is possibly related to the pt's kohli catheter, documentation must explicitly link the relationship. In your clinical opinion is this patient being managed for: ( ) UTI possibly due to chronic kohli catheter ( ) Other explanation of clinical findings (Please Explain) ( ) Unable to determine (Please Define) ( ) Need to Discuss ( ) Not Agree The medical record reflects the following clinical findings, treatment, and risk factors. Clinical Indicators: Pt noted to have recurrent UTI's as well as a chronic kohli catheter d/t neurogenic bladder Treatment: changed kohli catheter, IV cefepime, UA + with pending culture results Risk Factors: neurogenic bladder, chronic kohli catheter, DM Please clarify and document your clinical opinion in the progress notes and discharge summary. Terms such as "probable", "suspected", "likely", "questionable", "possible", or "still to be ruled out" are acceptable. IF IN AGREEMENT, YOU MUST DOCUMENT ABOVE DIAGNOSTIC STATEMENT IN DAILY PROGRESS NOTES AND DISCHARGE SUMMARY. This document is not part of the patient's record. Thank You, Lianne Stevenson, MARVIN [phone]
[2016-10-13] MEDS: WARFARIN SOD 4 MG TAB PO SCH (15:39)
[2016-10-13] MEDS: CEFEPIME IV 2000 MG in DEXTROSE 5% 100ML IV SCH (15:43)
--- NOTE | 2016-10-13 15:44 | Infectious Disease Progress Nt ---
Progress Note Date of Service Oct 13, 2016. Subjective Pt evaluation today including: conversation w/ patient, physical exam, chart review, lab review, review of studies, conversation w/ crm consultant, review of inpatient medication list Patient more alert and oriented today. Remains afebrile. Offers no new specific complaints. All Other Systems: Reviewed and Negative Medications Current Inpatient Medications Medications (Trade) Dose Ordered Sig/Betzy Route Start Time Stop Time Status Last Admin Dose Admin Acetaminophen (Tylenol Tab) 650 mg Q4H PRN PO 10/12/16 12:15 11/11/16 12:14 Ondansetron HCl 4 mg 4 mg Q6H PRN IV 10/12/16 12:15 11/11/16 12:14 Sodium Chloride (Nss 1000ml) 1,000 ml @ 80 mls/hr [id number] IV 10/12/16 12:15 11/11/16 12:14 10/13/16 02:30 80 MLS/HR Glucose (Glucose 40% Gel) 15-30 GRAMS 15 GRAMS... UD PRN PO 10/12/16 12:30 11/11/16 12:29 Glucose (Glucose Chew Tab) 4-8 Tablets 4 Tabl... UD PRN PO 10/12/16 12:30 11/11/16 12:29 Dextrose (Dextrose 50% 50ML Syringe) 25-50ML OF 50% DW IV FOR... UD PRN IV 10/12/16 12:30 11/11/16 12:29 Glucagon (Glucagon Inj) 1 mg UD PRN SQ 10/12/16 12:30 11/11/16 12:29 Amitriptyline HCl (Elavil Tab) 10 mg BID PO 10/12/16 21:00 11/11/16 20:59 10/13/16 08:48 10 MG Amlodipine Besylate (Norvasc Tab) 5 mg DAILY PO 10/13/16 09:00 11/12/16 08:59 10/13/16 08:51 5 MG Aspirin (Aspirin Chew) 81 mg QAM PO 10/13/16 09:00 11/12/16 08:59 10/13/16 08:51 81 MG Baclofen (Lioresal Tab) 20 mg BID PO 10/12/16 21:00 11/11/16 20:59 10/13/16 08:51 20 MG Diclofenac Sodium (Voltaren 1% Top Gel) 1 appln TID EXT 10/12/16 14:00 11/11/16 13:59 10/13/16 08:52 1 APPLN Duloxetine HCl (Cymbalta Cap) 60 mg QAM PO 10/13/16 09:00 11/12/16 08:59 10/13/16 08:52 60 MG Ferrous Sulfate (Feosol Tab) 325 mg BIDM PO 10/12/16 16:45 11/11/16 17:59 10/13/16 08:50 325 MG Albuterol/ Ipratropium (Duoneb) 3 ml Q6R INH 10/12/16 15:00 11/11/16 14:59 10/13/16 07:24 3 ML Magnesium Hydroxide (Milk Of Magnesia Susp) 30 ml DAILY PRN PO 10/12/16 12:30 11/11/16 12:29 Oxycodone HCl (Roxicodone Immediate Rel Tab) 5 mg Q4H PRN PO 10/12/16 12:30 10/26/16 12:29 Pantoprazole Sodium (Protonix Tab) 40 mg QAM PO 10/13/16 09:00 11/12/16 08:59 10/13/16 08:50 40 MG Pregabalin (Lyrica Cap) 75 mg BID PO 10/12/16 21:00 11/11/16 20:59 10/13/16 08:49 75 MG Rosuvastatin Calcium (Crestor Tab) 10 mg DAILY PO 10/13/16 09:00 11/12/16 08:59 10/13/16 08:49 10 MG Sodium Chloride (Cascade Nasal [place]) 2 sprays Q4H PRN SABRINA 10/12/16 12:30 11/11/16 12:29 Senna/Docusate Sodium (Senokot S Tab) 2 tab DAILY PO 10/13/16 09:00 11/12/16 08:59 10/13/16 08:50 2 TAB Sodium Biphosphate/ Sodium Phosphate (Fleet Enema) 132 ml DAILY PRN NM 10/12/16 12:30 11/11/16 12:29 Sotalol HCl (Betapace Tab) 80 mg BID PO 10/12/16 21:00 11/11/16 20:59 10/13/16 08:51 80 MG Warfarin Sodium (Coumadin Tab) 2 mg SuTuThSa@1600 PO 10/12/16 18:00 11/11/16 17:59 Nitroglycerin 0.4 mg 0.4 mg UD PRN SL 10/12/16 12:45 11/11/16 12:44 Cefepime HCl/ Dextrose (Maxipime IV/D5 100ml) 112.5 ml @ 225 mls/hr DAILY@1600 IV 10/12/16 16:00 10/22/16 15:59 10/12/16 19:56 225 MLS/HR Warfarin Sodium (Coumadin Tab) 4 mg MoWeFr@1600 PO 10/13/16 16:00 11/12/16 15:59 Enoxaparin Sodium (Lovenox Inj) 40 mg HS SQ 10/12/16 21:00 11/11/16 20:59 10/12/16 22:06 40 MG Metoprolol Tartrate (Lopressor Iv) 5 mg Q6 PRN IV 10/12/16 21:45 11/11/16 21:44 Insulin Aspart (novoLOG ASPART) SLIDING SCALE If C... ACHS SC 10/13/16 11:00 11/12/16 10:59 10/13/16 11:54 5 UNITS Objective Vital Signs Date Time Temp Pulse Resp B/P Pulse Ox O2 Delivery O2 Flow Rate FiO2 10/13/16 15:30 36.9 69 154/85 94 2.0 10/13/16 12:00 Nasal Cannula 2.0 10/13/16 11:50 36.4 74 20 114/72 97 Nasal Cannula 2.0 10/13/16 08:03 37.2 73 19 125/90 91 10/13/16 08:00 Nasal Cannula 2.0 10/13/16 07:25 82 16 95 Nasal Cannula 2.0 10/13/16 04:30 96 Nasal Cannula 2.0 10/13/16 03:31 36.5 76 18 130/78 92 Nasal Cannula 2.0 10/13/16 01:40 78 16 95 Nasal Cannula 2.0 10/13/16 00:05 95 Nasal Cannula 2.0 10/12/16 23:40 36.8 78 21 116/82 99 Nasal Cannula 2.5 10/12/16 21:01 80 16 95 Nasal Cannula 2.0 10/12/16 20:00 96 Nasal Cannula 3.0 10/12/16 19:22 36.1 80 18 167/91 96 Nasal Cannula 3.0 10/12/16 16:00 99 Nasal Cannula 3.0 Physical Exam General Appearance: WD/WN, no apparent distress Eyes: normal inspection, sclerae normal ENT: normal ENT inspection, pharynx normal Neck: supple, no adenopathy, trachea midline Respiratory/Chest: lungs clear, normal breath sounds, no respiratory distress Cardiovascular: regular rate, rhythm, no gallop, no murmur Abdomen: normal bowel sounds, non tender, soft, no organomegaly Extremities: non-tender, no calf tenderness Neurologic/Psychiatric: alert, + disoriented Skin: normal color, no rash Lymphatic: no adenopathy Laboratory Results Last 24 Hours Test 10/12/16 15:57 10/12/16 17:44 10/12/16 23:53 10/13/16 05:49 Lactic Acid Level 1.7 mmol/L Bedside Glucose 212 mg/dl 174 mg/dl 178 mg/dl Test 10/13/16 05:59 10/13/16 11:10 White Blood Count 6.29 K/uL Red Blood Count 3.72 M/uL Hemoglobin 9.7 g/dL Hematocrit 31.2 % Mean Corpuscular Volume 83.9 fL Mean Corpuscular Hemoglobin 26.1 pg Mean Corpuscular Hemoglobin Concent 31.1 g/dl RDW Standard Deviation 54.8 fL RDW Coefficient of Variation 18.0 % Platelet Count 308 K/uL Mean Platelet Volume 9.6 fL Nucleated RBC Absolute Count (auto) 0.02 K/uL Nucleated Red Blood Cells % 0.3 % Prothrombin Time 18.9 SECONDS Prothromb Time International Ratio 1.7 Sodium Level 140 mmol/L Potassium Level 4.2 mmol/L Chloride Level 98 mmol/L Carbon Dioxide Level 34 mmol/L Anion Gap 8.0 mmol/L Blood Urea Nitrogen 27 mg/dl Creatinine 1.40 mg/dl Est Creatinine Clear Calc Drug Dose 55.8 ml/min Estimated GFR () 57.0 Estimated GFR (Non- 49.1 BUN/Creatinine Ratio 19.4 Random Glucose 184 mg/dl Calcium Level 8.6 mg/dl Vitamin B12 Level 709 pg/mL Folate 4.20 ng/mL Bedside Glucose 263 mg/dl Assessment and Plan 76-year-old male with history of neurogenic bladder and recurrent urinary tract infections with encephalopathy, status post recent hospitalization for sigmoid volvulus requiring resection, now presents with 1 day history of acute change in mental status and abnormal urinalysis, consistent with prior episodes of sepsis with urinary tract infection and encephalopathy. Urine culture is negative, sputum growing Staph species. Am concerned about possible ongoing right hip process, and would recommend orthopedic consultation.Bone scan ordered.
[2016-10-13] MEDS: ENOXAPARIN 40 MG/0.4 ML SYR SQ SCH (20:37)
[2016-10-14] VITALS (11 sets, daily range): BP systolic 113–169; BP diastolic 60–100; PULSE 55–70; TEMP 36.4–36.8; O2SAT 93–100
[2016-10-14] MEDS: ALBUT/IPRATROP 3MG/0.5MG NEB 3 ML VIAL INH SCH ×4 (02:40→19:18)
[2016-10-14] MEDS: SODIUM CHLORIDE 0.9% 1000ML 1,000 ML IV SCH ×2 (04:42→16:18)
[2016-10-14] MEDS: FERROUS SULFATE 325 MG TAB PO SCH ×2 (07:39→16:11)
[2016-10-14] MEDS: ROSUVASTATIN CALCIUM 10 MG TAB PO SCH (07:39)
[2016-10-14] MEDS: SOTALOL HCL 80 MG TAB PO SCH ×2 (07:39→20:10)
[2016-10-14] MEDS: ASPIRIN 81 MG CHEW PO SCH (07:39)
[2016-10-14] MEDS: DULOXETINE HCL 60 MG CAP PO SCH (07:40)
[2016-10-14] MEDS: AMITRIPTYLINE HCL 10 MG TAB PO SCH ×2 (07:40→20:09)
[2016-10-14] MEDS: AMLODIPINE BESYLATE 5 MG TAB PO SCH (07:40)
[2016-10-14] MEDS: BACLOFEN TAB 20 MG TAB PO SCH ×2 (07:40→20:09)
[2016-10-14] MEDS: PANTOprazole SOD 40 MG TAB PO SCH (07:41)
[2016-10-14] MEDS: DICLOFENAC SOD 1% GEL 100 GM TUBE EXT SCH ×3 (07:41→20:10)
[2016-10-14] MEDS: DOCUSATE SODIUM/SENNA 50/8.6MG TAB PO SCH (07:41)
[2016-10-14] MEDS: PREGABALIN 75 MG CAP PO SCH ×2 (07:42→20:15)
[2016-10-14] MEDS: INSULIN ASPART 100 UNITS/ML 3 ML PEN SC SCH ×4 (07:49→20:24)
--- NOTE | 2016-10-14 13:00 | DIAGNOSTIC IMAGING REPORT ---
BONE SCAN 3 PHASE LIMITED HISTORY: Right hip pain. possible right hip infection TECHNIQUE: Immediately and 3 hours following the intravenous administration of 26 mCi of technetium 99 M MDP, 3 phase bone scan of the hips were performed. COMPARISON STUDY: Abdomen and pelvis CT 10/12/2016. FINDINGS: No abnormal radiotracer uptake within the hips on the blood flow or blood pool sequences. Mild radiotracer uptake seen within the proximal right femur on the delayed sequences only. This is located at the area of the deformed proximal right femur in the region of heterotopic ossification. IMPRESSION: Mild radiotracer uptake within the proximal right femur on the delayed sequences only located at the deformed proximal right femur in the region of the heterotopic ossification. No evidence for positive three-phase uptake. Therefore, this is less likely to represent infection. The radiotracer uptake may be related to the heterotopic ossification/new bone formation. Electronically signed by: Jorge Veronica M.D. 10/14/2016 12:59 PM Dictated Date/Time: 10/14/2016 12:54 PM
[2016-10-14] MEDS: WARFARIN SOD 2 MG TAB PO SCH (16:12)
[2016-10-14] MEDS: CEFEPIME IV 2000 MG in DEXTROSE 5% 100ML IV SCH (16:16)
--- NOTE | 2016-10-14 17:41 | Progress Note ---
Subjective Date of Service: Oct 14, 2016. Subjective Pt evaluation today including: conversation w/ patient, physical exam, lab review, review of studies, review of inpatient medication list Saw/examined the patient in room 208 Spoke with patient's sister in the room with him She is concerned that he is coming to the hospital repeatedly because of his UTI He is lethargic and tired today; arousable and does answer some questions, but very lethargic Problem List Medical Problems: (1) Abdominal pain Status: Acute (2) Altered mental status Status: Acute (3) Altered mental status Status: Acute (4) Altered mental status Status: Acute (5) Altered mental status Status: Acute (6) Diffuse abdominal pain Status: Acute (7) Dislodged [place]rell catheter Status: Acute (8) Fever Status: Acute (9) Hematuria Status: Acute (10) Hyperglycemia Status: Acute (11) Hypomagnesemia Status: Acute (12) Hypoxia Status: Acute (13) Hypoxia Status: Acute (14) Hypoxia Status: Acute (15) Lactic acid acidosis Status: Acute (16) Left lower lobe pneumonia Status: Acute (17) Leukocytosis Status: Acute (18) Pneumonia Status: Acute (19) Renal insufficiency Status: Acute (20) Sepsis Status: Acute (21) Sigmoid volvulus Status: Acute (22) Sigmoid volvulus Status: Acute (23) UTI (urinary tract infection) Status: Acute (24) UTI (urinary tract infection) Status: Acute (25) UTI (urinary tract infection) Status: Acute (26) UTI (urinary tract infection) Status: Acute (27) UTI (urinary tract infection) Status: Acute Review of Systems difficult to obtain due to patient's mental status Medications Current Inpatient Medications Medications (Trade) Dose Ordered Sig/Betzy Route Start Time Stop Time Status Last Admin Dose Admin Acetaminophen (Tylenol Tab) 650 mg Q4H PRN PO 10/12/16 12:15 11/11/16 12:14 Ondansetron HCl 4 mg 4 mg Q6H PRN IV 10/12/16 12:15 11/11/16 12:14 Sodium Chloride (Nss 1000ml) 1,000 ml @ 80 mls/hr [id number] IV 10/12/16 12:15 11/11/16 12:14 10/14/16 16:18 80 MLS/HR Glucose (Glucose 40% Gel) 15-30 GRAMS 15 GRAMS... UD PRN PO 10/12/16 12:30 11/11/16 12:29 Glucose (Glucose Chew Tab) 4-8 Tablets 4 Tabl... UD PRN PO 10/12/16 12:30 11/11/16 12:29 Dextrose (Dextrose 50% 50ML Syringe) 25-50ML OF 50% DW IV FOR... UD PRN IV 10/12/16 12:30 11/11/16 12:29 Glucagon (Glucagon Inj) 1 mg UD PRN SQ 10/12/16 12:30 11/11/16 12:29 Amitriptyline HCl (Elavil Tab) 10 mg BID PO 10/12/16 21:00 11/11/16 20:59 10/14/16 07:40 10 MG Amlodipine Besylate (Norvasc Tab) 5 mg DAILY PO 10/13/16 09:00 11/12/16 08:59 10/14/16 07:40 5 MG Aspirin (Aspirin Chew) 81 mg QAM PO 10/13/16 09:00 11/12/16 08:59 10/14/16 07:39 81 MG Baclofen (Lioresal Tab) 20 mg BID PO 10/12/16 21:00 11/11/16 20:59 10/14/16 07:40 20 MG Diclofenac Sodium (Voltaren 1% Top Gel) 1 appln TID EXT 10/12/16 14:00 11/11/16 13:59 10/13/16 08:52 1 APPLN Duloxetine HCl (Cymbalta Cap) 60 mg QAM PO 10/13/16 09:00 11/12/16 08:59 10/14/16 07:40 60 MG Ferrous Sulfate (Feosol Tab) 325 mg BIDM PO 10/12/16 16:45 11/11/16 17:59 10/14/16 16:11 325 MG Albuterol/ Ipratropium (Duoneb) 3 ml Q6R INH 10/12/16 15:00 11/11/16 14:59 10/14/16 14:27 3 ML Magnesium Hydroxide (Milk Of Magnesia Susp) 30 ml DAILY PRN PO 10/12/16 12:30 11/11/16 12:29 Oxycodone HCl (Roxicodone Immediate Rel Tab) 5 mg Q4H PRN PO 10/12/16 12:30 10/26/16 12:29 Pantoprazole Sodium (Protonix Tab) 40 mg QAM PO 10/13/16 09:00 11/12/16 08:59 10/14/16 07:41 40 MG Pregabalin (Lyrica Cap) 75 mg BID PO 10/12/16 21:00 11/11/16 20:59 10/14/16 07:42 75 MG Rosuvastatin Calcium (Crestor Tab) 10 mg DAILY PO 10/13/16 09:00 11/12/16 08:59 10/14/16 07:39 10 MG Sodium Chloride ([place] Nasal [place]) 2 sprays Q4H PRN SABRINA 10/12/16 12:30 11/11/16 12:29 Senna/Docusate Sodium (Senokot S Tab) 2 tab DAILY PO 10/13/16 09:00 11/12/16 08:59 10/14/16 07:41 2 TAB Sodium Biphosphate/ Sodium Phosphate (Fleet Enema) 132 ml DAILY PRN [place] 10/12/16 12:30 11/11/16 12:29 Sotalol HCl (Betapace Tab) 80 mg BID PO 10/12/16 21:00 11/11/16 20:59 10/14/16 07:39 80 MG Warfarin Sodium (Coumadin Tab) 2 mg SuTuThSa@1600 PO 10/12/16 18:00 11/11/16 17:59 10/14/16 16:12 2 MG Nitroglycerin 0.4 mg 0.4 mg UD PRN SL 10/12/16 12:45 11/11/16 12:44 Cefepime HCl/ Dextrose (Maxipime IV/D5 100ml) 112.5 ml @ 225 mls/hr DAILY@1600 IV 10/12/16 16:00 10/22/16 15:59 10/14/16 16:16 225 MLS/HR Warfarin Sodium (Coumadin Tab) 4 mg MoWeFr@1600 PO 10/13/16 16:00 11/12/16 15:59 10/13/16 15:39 4 MG Enoxaparin Sodium (Lovenox Inj) 40 mg HS SQ 10/12/16 21:00 11/11/16 20:59 10/13/16 20:37 40 MG Metoprolol Tartrate (Lopressor Iv) 5 mg Q6 PRN IV 10/12/16 21:45 11/11/16 21:44 Insulin Aspart (novoLOG ASPART) SLIDING SCALE If C... ACHS SC 10/13/16 11:00 11/12/16 10:59 10/14/16 07:49 2 UNITS Objective Vital Signs Date Time Temp Pulse Resp B/P Pulse Ox O2 Delivery O2 Flow Rate FiO2 10/14/16 15:30 36.4 62 20 116/60 100 Room Air 10/14/16 14:27 56 16 96 Nasal Cannula 3.0 10/14/16 12:08 36.8 55 22 169/100 100 10/14/16 12:00 Nasal Cannula 3.0 10/14/16 08:00 Nasal Cannula 3.0 10/14/16 07:37 36.6 66 20 129/81 96 Nasal Cannula 3.0 10/14/16 07:11 70 16 94 Nasal Cannula 3.0 10/14/16 04:00 36.6 64 20 113/61 99 Nasal Cannula 3.0 10/14/16 04:00 Nasal Cannula 4.0 10/14/16 01:35 70 16 93 Nasal Cannula 2.0 10/13/16 23:59 Nasal Cannula 4.0 10/13/16 23:42 36.7 60 20 114/72 98 Nasal Cannula 3.0 10/13/16 20:00 Room Air 10/13/16 19:21 36.6 71 22 129/75 100 Nasal Cannula 3.0 10/13/16 19:10 78 16 94 Nasal Cannula 2.0 Physical Exam General Appearance: + pertinent finding (lethargic; weak; difficult to arouse) Respiratory/Chest: lungs clear, normal breath sounds, no respiratory distress, no accessory muscle use Cardiovascular: regular rate, rhythm, no edema, no murmur Abdomen: normal bowel sounds, non tender, soft, + pertinent finding (+ostomy is functioning) Neurologic/Psychiatric: + disoriented, + pertinent finding (somnolent) Laboratory Results Last 24 Hours Test 10/13/16 20:43 10/14/16 06:38 10/14/16 11:54 10/14/16 16:41 Bedside Glucose 137 mg/dl 130 mg/dl 135 mg/dl 152 mg/dl Assessment and Plan This is a 76 year old male with PMH of 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 of atrial fibrillation on anticoagulation, CKD stage 3, recurrent lower extremity cellulitis, hx. 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 at this point, it seems more likely to be related to the UTI Currently on Cefepime appreciate ID input cultures pending will transition or de-escalate if cultures allow Acute Kidney Injury superimposed on CKD stage 3 likely secondary to UTI and decreased PO intake gentle hydration creat improved from 1.9 to 1.4 Recent Colectomy s/p Colostomy patient with recurrent sigmoid volvulus requiring surgical intervention Denies nausea/vomiting or abdominal pain Abdominal CT with acute findings, chronic/post-surgical changes will need margie removed around 10 days-2 weeks after surgery date Likely ANDREW Chronic Hypercapnia ANDREW, obesity-hypoventilation paraplegia and likely atelectatic changes due to body habitus and decreased movement nocturnal bipap recommended by pulmonology during previous admission will order this; though compliance will be an issue Paroxysmal Atrial Fibrillation patient takes Coumadin for anticoagulation INR subtherapeutic, continue Coumadin and monitor INR; adjust dose if necessary continue Sotalol DM2 hold oral agents sliding scale insulin HTN blood pressure controlled continue home medications DVT ppx Coumadin DNR
--- NOTE | 2016-10-14 19:15 | Infectious Disease Progress Nt ---
Progress Note Date of Service Oct 14, 2016. Subjective Pt evaluation today including: conversation w/ patient, physical exam, chart review, lab review, review of studies, conversation w/ political consultant, review of inpatient medication list Somewhat lethargic today. No other new complaints. Remains afebrile. All Other Systems: Reviewed and Negative Medications Current Inpatient Medications Medications (Trade) Dose Ordered Sig/Betzy Route Start Time Stop Time Status Last Admin Dose Admin Acetaminophen (Tylenol Tab) 650 mg Q4H PRN PO 10/12/16 12:15 11/11/16 12:14 Ondansetron HCl 4 mg 4 mg Q6H PRN IV 10/12/16 12:15 11/11/16 12:14 Sodium Chloride (Nss 1000ml) 1,000 ml @ 80 mls/hr [id number] IV 10/12/16 12:15 11/11/16 12:14 10/14/16 16:18 80 MLS/HR Glucose (Glucose 40% Gel) 15-30 GRAMS 15 GRAMS... UD PRN PO 10/12/16 12:30 11/11/16 12:29 Glucose (Glucose Chew Tab) 4-8 Tablets 4 Tabl... UD PRN PO 10/12/16 12:30 11/11/16 12:29 Dextrose (Dextrose 50% 50ML Syringe) 25-50ML OF 50% DW IV FOR... UD PRN IV 10/12/16 12:30 11/11/16 12:29 Glucagon (Glucagon Inj) 1 mg UD PRN SQ 10/12/16 12:30 11/11/16 12:29 Amitriptyline HCl (Elavil Tab) 10 mg BID PO 10/12/16 21:00 11/11/16 20:59 10/14/16 07:40 10 MG Amlodipine Besylate (Norvasc Tab) 5 mg DAILY PO 10/13/16 09:00 11/12/16 08:59 10/14/16 07:40 5 MG Aspirin (Aspirin Chew) 81 mg QAM PO 10/13/16 09:00 11/12/16 08:59 10/14/16 07:39 81 MG Baclofen (Lioresal Tab) 20 mg BID PO 10/12/16 21:00 11/11/16 20:59 10/14/16 07:40 20 MG Diclofenac Sodium (Voltaren 1% Top Gel) 1 appln TID EXT 10/12/16 14:00 11/11/16 13:59 10/13/16 08:52 1 APPLN Duloxetine HCl (Cymbalta Cap) 60 mg QAM PO 10/13/16 09:00 11/12/16 08:59 10/14/16 07:40 60 MG Ferrous Sulfate (Feosol Tab) 325 mg BIDM PO 10/12/16 16:45 11/11/16 17:59 10/14/16 16:11 325 MG Albuterol/ Ipratropium (Duoneb) 3 ml Q6R INH 10/12/16 15:00 11/11/16 14:59 10/14/16 14:27 3 ML Magnesium Hydroxide (Milk Of Magnesia Susp) 30 ml DAILY PRN PO 10/12/16 12:30 11/11/16 12:29 Oxycodone HCl (Roxicodone Immediate Rel Tab) 5 mg Q4H PRN PO 10/12/16 12:30 10/26/16 12:29 Pantoprazole Sodium (Protonix Tab) 40 mg QAM PO 10/13/16 09:00 11/12/16 08:59 10/14/16 07:41 40 MG Pregabalin (Lyrica Cap) 75 mg BID PO 10/12/16 21:00 11/11/16 20:59 10/14/16 07:42 75 MG Rosuvastatin Calcium (Crestor Tab) 10 mg DAILY PO 10/13/16 09:00 11/12/16 08:59 10/14/16 07:39 10 MG Sodium Chloride ([place] Nasal [place]) 2 sprays Q4H PRN SABRINA 10/12/16 12:30 11/11/16 12:29 Senna/Docusate Sodium (Senokot S Tab) 2 tab DAILY PO 10/13/16 09:00 11/12/16 08:59 10/14/16 07:41 2 TAB Sodium Biphosphate/ Sodium Phosphate (Fleet Enema) 132 ml DAILY PRN [place] 10/12/16 12:30 11/11/16 12:29 Sotalol HCl (Betapace Tab) 80 mg BID PO 10/12/16 21:00 11/11/16 20:59 10/14/16 07:39 80 MG Warfarin Sodium (Coumadin Tab) 2 mg SuTuThSa@1600 PO 10/12/16 18:00 11/11/16 17:59 10/14/16 16:12 2 MG Nitroglycerin 0.4 mg 0.4 mg UD PRN SL 10/12/16 12:45 11/11/16 12:44 Cefepime HCl/ Dextrose (Maxipime IV/D5 100ml) 112.5 ml @ 225 mls/hr DAILY@1600 IV 10/12/16 16:00 10/22/16 15:59 10/14/16 16:16 225 MLS/HR Warfarin Sodium (Coumadin Tab) 4 mg MoWeFr@1600 PO 10/13/16 16:00 11/12/16 15:59 10/13/16 15:39 4 MG Enoxaparin Sodium (Lovenox Inj) 40 mg HS SQ 10/12/16 21:00 11/11/16 20:59 10/13/16 20:37 40 MG Metoprolol Tartrate (Lopressor Iv) 5 mg Q6 PRN IV 10/12/16 21:45 11/11/16 21:44 Insulin Aspart (novoLOG ASPART) SLIDING SCALE If C... ACHS SC 10/13/16 11:00 11/12/16 10:59 10/14/16 17:42 4 UNITS Objective Vital Signs Date Time Temp Pulse Resp B/P Pulse Ox O2 Delivery O2 Flow Rate FiO2 10/14/16 16:00 Nasal Cannula 3.0 10/14/16 15:30 36.4 62 20 116/60 100 Room Air 10/14/16 14:27 56 16 96 Nasal Cannula 3.0 10/14/16 12:08 36.8 55 22 169/100 100 10/14/16 12:00 Nasal Cannula 3.0 10/14/16 08:00 Nasal Cannula 3.0 10/14/16 07:37 36.6 66 20 129/81 96 Nasal Cannula 3.0 10/14/16 07:11 70 16 94 Nasal Cannula 3.0 10/14/16 04:00 36.6 64 20 113/61 99 Nasal Cannula 3.0 10/14/16 04:00 Nasal Cannula 4.0 10/14/16 01:35 70 16 93 Nasal Cannula 2.0 10/13/16 23:59 Nasal Cannula 4.0 10/13/16 23:42 36.7 60 20 114/72 98 Nasal Cannula 3.0 10/13/16 20:00 Room Air 10/13/16 19:21 36.6 71 22 129/75 100 Nasal Cannula 3.0 Physical Exam General Appearance: WD/WN, no apparent distress Eyes: normal inspection, sclerae normal ENT: normal ENT inspection, pharynx normal Neck: supple, no adenopathy, trachea midline Respiratory/Chest: lungs clear, normal breath sounds, no respiratory distress Cardiovascular: regular rate, rhythm, no gallop, no murmur Abdomen: normal bowel sounds, non tender, soft, no organomegaly Extremities: non-tender, no calf tenderness Neurologic/Psychiatric: + disoriented, + pertinent finding (lethargic) Skin: normal color, no rash Lymphatic: no adenopathy Laboratory Results Last 24 Hours Test 10/13/16 20:43 10/14/16 06:38 10/14/16 11:54 10/14/16 16:41 Bedside Glucose 137 mg/dl 130 mg/dl 135 mg/dl 152 mg/dl [~ rep ct add3]] BONE SCAN 3 PHASE LIMITED HISTORY: Right hip pain. possible right hip infection TECHNIQUE: Immediately and 3 hours following the intravenous administration of 26 mCi of technetium 99 M MDP, 3 phase bone scan of the hips were performed. COMPARISON STUDY: Abdomen and pelvis CT 10/12/2016. FINDINGS: No abnormal radiotracer uptake within the hips on the blood flow or blood pool sequences. Mild radiotracer uptake seen within the proximal right femur on the delayed sequences only. This is located at the area of the deformed proximal right femur in the region of heterotopic ossification. IMPRESSION: Mild radiotracer uptake within the proximal right femur on the delayed sequences only located at the deformed proximal right femur in the region of the heterotopic ossification. No evidence for positive three-phase uptake. Therefore, this is less likely to represent infection. The radiotracer uptake may be related to the heterotopic ossification/new bone formation. Electronically signed by: Jorge Veronica M.D. 10/14/2016 12:59 PM Assessment and Plan 76-year-old male with history of neurogenic bladder and recurrent urinary tract infections with encephalopathy, status post recent hospitalization for sigmoid volvulus requiring resection, now presents with 1 day history of acute change in mental status and abnormal urinalysis, consistent with prior episodes of sepsis with urinary tract infection and encephalopathy. Urine culture is negative, sputum growing Staph species, will discuss significance with all involved.. Bone scan not c/w hip infection.
[2016-10-14] MEDS: ENOXAPARIN 40 MG/0.4 ML SYR SQ SCH (20:15)
[2016-10-15] VITALS (13 sets, daily range): BP systolic 129–179; BP diastolic 72–94; PULSE 55–60; TEMP 36.4–36.8; O2SAT 92–100
[2016-10-15] MEDS: ALBUT/IPRATROP 3MG/0.5MG NEB 3 ML VIAL INH SCH ×4 (02:16→19:47)
[2016-10-15] MEDS: SODIUM CHLORIDE 0.9% 1000ML 1,000 ML IV SCH ×2 (05:01→16:09)
[2016-10-15 06:06] LABS: HEMATOCRIT 31.4 % (42-52); MEAN CELL VOLUME 86.5 fL (80-100); MEAN CORPUSCULAR HEMOGLOBIN 25.1 pg (25-34); PLATELET COUNT 257 K/uL (130-400); RED BLOOD COUNT 3.63 M/uL (4.7-6.1); WHITE BLOOD COUNT 6.47 K/uL (4.8-10.8)
[2016-10-15 06:38] LABS: BUN/CREATININE RATIO 22.1 (10-20); CALCIUM 8.5 mg/dl (8.5-10.1); CREATININE 1.1 mg/dl (0.60-1.40); POTASSIUM 4.4 mmol/L (3.5-5.1)
[2016-10-15 06:39] LABS: INR 2.1 (0.9-1.1); PROTHROMBIN TIME (PATIENT) 23.4 SECONDS (9.0-12.0)
[2016-10-15] MEDS: INSULIN ASPART 100 UNITS/ML 3 ML PEN SC SCH ×4 (07:00→21:00)
[2016-10-15] MEDS: DICLOFENAC SOD 1% GEL 100 GM TUBE EXT SCH ×3 (07:56→19:42)
[2016-10-15] MEDS: AMITRIPTYLINE HCL 10 MG TAB PO SCH ×2 (07:57→21:02)
[2016-10-15] MEDS: DOCUSATE SODIUM/SENNA 50/8.6MG TAB PO SCH (07:57)
[2016-10-15] MEDS: ASPIRIN 81 MG CHEW PO SCH (07:57)
[2016-10-15] MEDS: BACLOFEN TAB 20 MG TAB PO SCH ×2 (07:57→21:02)
[2016-10-15] MEDS: PANTOprazole SOD 40 MG TAB PO SCH (07:58)
[2016-10-15] MEDS: ROSUVASTATIN CALCIUM 10 MG TAB PO SCH (07:58)
[2016-10-15] MEDS: AMLODIPINE BESYLATE 5 MG TAB PO SCH (07:58)
[2016-10-15] MEDS: FERROUS SULFATE 325 MG TAB PO SCH ×2 (07:58→17:00)
[2016-10-15] MEDS: SOTALOL HCL 80 MG TAB PO SCH ×2 (07:58→21:41)
[2016-10-15] MEDS: DULOXETINE HCL 60 MG CAP PO SCH (07:59)
[2016-10-15] MEDS: PREGABALIN 75 MG CAP PO SCH ×2 (08:02→21:22)
[2016-10-15] MEDS: CEFEPIME IV 2000 MG in DEXTROSE 5% 100ML IV SCH (16:13)
[2016-10-15] MEDS: WARFARIN SOD 4 MG TAB PO SCH (16:25)
--- NOTE | 2016-10-15 19:40 | Progress Note ---
Medicine Progress Note Date & Time of Visit: Oct 15, 2016 at 19:26. Subjective Patient seen and examined. Sleeping but arousable. Difficult to understand, but nursing staff notes that patient at baseline this hospitalization. Objective Last 8 Hrs Date Time Temp Pulse Resp B/P Pulse Ox O2 Delivery O2 Flow Rate FiO2 10/15/16 15:54 93 Nasal Cannula 3.0 10/15/16 15:50 36.6 58 18 129/76 93 Room Air 10/15/16 14:30 36.5 55 16 100 3.0 10/15/16 14:12 58 18 100 Room Air 10/15/16 12:31 36.5 55 16 151/78 100 Nasal Cannula 3.0 10/15/16 12:00 Nasal Cannula 3.0 Physical Exam: General-sleeping but arousable Eyes-EOMI; no scleral icterus Neck-no stridor; trachea midline Lungs-CTA bilaterally; no wheezes/crackles Heart-RRR; no m/r/g Abdomen-soft; NT; nBS; ostomy site c/d/i Extremities-no deformity Neuro-unable to assess Laboratory Results: Last 24 Hours Test 10/14/16 20:24 10/15/16 05:35 10/15/16 06:10 10/15/16 11:35 Bedside Glucose 123 mg/dl 115 mg/dl 116 mg/dl White Blood Count 6.47 K/uL Red Blood Count 3.63 M/uL Hemoglobin 9.1 g/dL Hematocrit 31.4 % Mean Corpuscular Volume 86.5 fL Mean Corpuscular Hemoglobin 25.1 pg Mean Corpuscular Hemoglobin Concent 29.0 g/dl RDW Standard Deviation 60.2 fL RDW Coefficient of Variation 18.8 % Platelet Count 257 K/uL Mean Platelet Volume 10.0 fL Prothrombin Time 23.4 SECONDS Prothromb Time International Ratio 2.1 Sodium Level 144 mmol/L Potassium Level 4.4 mmol/L Chloride Level 106 mmol/L Carbon Dioxide Level 35 mmol/L Anion Gap 3.0 mmol/L Blood Urea Nitrogen 24 mg/dl Creatinine 1.10 mg/dl Est Creatinine Clear Calc Drug Dose 71.0 ml/min Estimated GFR () 76.2 Estimated GFR (Non- 65.8 BUN/Creatinine Ratio 22.1 Random Glucose 124 mg/dl Calcium Level 8.5 mg/dl Test 10/15/16 16:44 Bedside Glucose 116 mg/dl Assessment & Plan Metabolic encephalopathy - presented with confusion - possibly due to infection - started on Cefepime - ID consulted - urine culture negative - blood cultures negative - sputum culture with MRSA (unsure of clinical significance as patient is also MRSA colonized) - bone scan negative [place] - resolved with IVF's Recent colectomy s/p colostomy - CT a/p unremarkable - surgery done 10/03 Chronic hypercapnia - nocturnal BiPAP Paroxysmal A fib - continue warfarin and sotalol DM type 2 - hold oral agents - SSI DVT prophylaxis with warfarin Dispo to [facility] when medically stable Consultants: Infectious disease Procedures: Bone Scan Mild radiotracer uptake within the proximal right femur on the delayed sequences only located at the deformed proximal right femur in the region of the heterotopic ossification. No evidence for positive three-phase uptake. Therefore, this is less likely to represent infection. The radiotracer uptake may be related to the heterotopic ossification/new bone formation. CT a/p 1. Interval sigmoid resection with creation of a left lower quadrant ostomy 2. No evidence of bowel obstruction. No evidence of free air 3. Infiltration and nodularity of the mid pelvic mesenteric fat, likely postsurgical 4. No evidence of a drainable abscess 5. Mild retroperitoneal and pelvic lymphadenopathy, likely postsurgical. 6. 3 cm soft tissue nodule adjacent to the sigmoid stump, likely postsurgical. 7. Persistent erosive/destructive changes involving the right acetabulum. Joint effusion. Possible sinus tract to the right lateral skin surface 8. Bibasilar pulmonary opacities likely atelectatic Current Inpatient Medications: Current Inpatient Medications Medications (Trade) Dose Ordered Sig/Betzy Route Start Time Stop Time Status Last Admin Dose Admin Acetaminophen (Tylenol Tab) 650 mg Q4H PRN PO 10/12/16 12:15 11/11/16 12:14 Ondansetron HCl 4 mg 4 mg Q6H PRN IV 10/12/16 12:15 11/11/16 12:14 Sodium Chloride (Nss 1000ml) 1,000 ml @ 80 mls/hr [id number] IV 10/12/16 12:15 11/11/16 12:14 10/15/16 16:09 80 MLS/HR Glucose (Glucose 40% Gel) 15-30 GRAMS 15 GRAMS... UD PRN PO 10/12/16 12:30 11/11/16 12:29 Glucose (Glucose Chew Tab) 4-8 Tablets 4 Tabl... UD PRN PO 10/12/16 12:30 11/11/16 12:29 Dextrose (Dextrose 50% 50ML Syringe) 25-50ML OF 50% DW IV FOR... UD PRN IV 10/12/16 12:30 11/11/16 12:29 Glucagon (Glucagon Inj) 1 mg UD PRN SQ 10/12/16 12:30 11/11/16 12:29 Amitriptyline HCl (Elavil Tab) 10 mg BID PO 10/12/16 21:00 11/11/16 20:59 10/15/16 07:57 10 MG Amlodipine Besylate (Norvasc Tab) 5 mg DAILY PO 10/13/16 09:00 11/12/16 08:59 10/15/16 07:58 5 MG Aspirin (Aspirin Chew) 81 mg QAM PO 10/13/16 09:00 11/12/16 08:59 10/15/16 07:57 81 MG Baclofen (Lioresal Tab) 20 mg BID PO 10/12/16 21:00 11/11/16 20:59 10/15/16 07:57 20 MG Diclofenac Sodium (Voltaren 1% Top Gel) 1 appln TID EXT 10/12/16 14:00 11/11/16 13:59 10/15/16 07:56 1 APPLN Duloxetine HCl (Cymbalta Cap) 60 mg QAM PO 10/13/16 09:00 11/12/16 08:59 10/15/16 07:59 60 MG Ferrous Sulfate (Feosol Tab) 325 mg BIDM PO 10/12/16 16:45 11/11/16 17:59 10/15/16 07:58 325 MG Albuterol/ Ipratropium (Duoneb) 3 ml Q6R INH 10/12/16 15:00 11/11/16 14:59 10/15/16 14:12 3 ML Magnesium Hydroxide (Milk Of Magnesia Susp) 30 ml DAILY PRN PO 10/12/16 12:30 11/11/16 12:29 Oxycodone HCl (Roxicodone Immediate Rel Tab) 5 mg Q4H PRN PO 10/12/16 12:30 10/26/16 12:29 Pantoprazole Sodium (Protonix Tab) 40 mg QAM PO 10/13/16 09:00 11/12/16 08:59 10/15/16 07:58 40 MG Pregabalin (Lyrica Cap) 75 mg BID PO 10/12/16 21:00 11/11/16 20:59 10/15/16 08:02 75 MG Rosuvastatin Calcium (Crestor Tab) 10 mg DAILY PO 10/13/16 09:00 11/12/16 08:59 10/15/16 07:58 10 MG Sodium Chloride ([place] Nasal [place]) 2 sprays Q4H PRN SABRINA 10/12/16 12:30 11/11/16 12:29 Senna/Docusate Sodium (Senokot S Tab) 2 tab DAILY PO 10/13/16 09:00 11/12/16 08:59 10/15/16 07:57 2 TAB Sodium Biphosphate/ Sodium Phosphate (Fleet Enema) 132 ml DAILY PRN [place] 10/12/16 12:30 11/11/16 12:29 Sotalol HCl (Betapace Tab) 80 mg BID PO 10/12/16 21:00 11/11/16 20:59 10/15/16 07:58 80 MG Warfarin Sodium (Coumadin Tab) 2 mg SuTuThSa@1600 PO 10/12/16 18:00 11/11/16 17:59 10/14/16 16:12 2 MG Nitroglycerin 0.4 mg 0.4 mg UD PRN SL 10/12/16 12:45 11/11/16 12:44 Cefepime HCl/ Dextrose (Maxipime IV/D5 100ml) 112.5 ml @ 225 mls/hr DAILY@1600 IV 10/12/16 16:00 10/22/16 15:59 10/15/16 16:13 225 MLS/HR Warfarin Sodium (Coumadin Tab) 4 mg MoWeFr@1600 PO 10/13/16 16:00 11/12/16 15:59 10/15/16 16:25 4 MG Enoxaparin Sodium (Lovenox Inj) 40 mg HS SQ 10/12/16 21:00 11/11/16 20:59 10/14/16 20:15 40 MG Metoprolol Tartrate (Lopressor Iv) 5 mg Q6 PRN IV 10/12/16 21:45 11/11/16 21:44 Insulin Aspart (novoLOG ASPART) SLIDING SCALE If C... ACHS SC 10/13/16 11:00 11/12/16 10:59 10/14/16 17:42 4 UNITS
[2016-10-16] VITALS (10 sets, daily range): BP systolic 150–164; BP diastolic 78–99; PULSE 58–74; TEMP 36.1–36.7; O2SAT 92–94
[2016-10-16] MEDS: ALBUT/IPRATROP 3MG/0.5MG NEB 3 ML VIAL INH SCH ×4 (02:30→19:31)
[2016-10-16 06:51] LABS: INR 2.2 (0.9-1.1); PROTHROMBIN TIME (PATIENT) 24.9 SECONDS (9.0-12.0)
[2016-10-16 06:54] LABS: HEMATOCRIT 32.3 % (42-52); MEAN CELL VOLUME 86.1 fL (80-100); MEAN CORPUSCULAR HEMOGLOBIN 26.7 pg (25-34); MEAN PLATELET VOLUME 10.1 fL (7.4-10.4); PLATELET COUNT 245 K/uL (130-400); RED BLOOD COUNT 3.75 M/uL (4.7-6.1); WHITE BLOOD COUNT 5.45 K/uL (4.8-10.8)
[2016-10-16 07:10] LABS: BUN/CREATININE RATIO 17.7 (10-20); CALCIUM 8.7 mg/dl (8.5-10.1); CREATININE 0.95 mg/dl (0.60-1.40); POTASSIUM 3.9 mmol/L (3.5-5.1)
[2016-10-16] MEDS: AMLODIPINE BESYLATE 5 MG TAB PO SCH (08:07)
[2016-10-16] MEDS: DOCUSATE SODIUM/SENNA 50/8.6MG TAB PO SCH (08:07)
[2016-10-16] MEDS: AMITRIPTYLINE HCL 10 MG TAB PO SCH ×2 (08:07→21:23)
[2016-10-16] MEDS: PANTOprazole SOD 40 MG TAB PO SCH (08:07)
[2016-10-16] MEDS: ROSUVASTATIN CALCIUM 10 MG TAB PO SCH (08:07)
[2016-10-16] MEDS: FERROUS SULFATE 325 MG TAB PO SCH ×2 (08:07→17:17)
[2016-10-16] MEDS: ASPIRIN 81 MG CHEW PO SCH (08:08)
[2016-10-16] MEDS: SOTALOL HCL 80 MG TAB PO SCH ×2 (08:08→21:24)
[2016-10-16] MEDS: BACLOFEN TAB 20 MG TAB PO SCH ×2 (08:08→21:23)
[2016-10-16] MEDS: DULOXETINE HCL 60 MG CAP PO SCH (08:08)
[2016-10-16] MEDS: DICLOFENAC SOD 1% GEL 100 GM TUBE EXT SCH ×3 (08:08→21:22)
[2016-10-16] MEDS: PREGABALIN 75 MG CAP PO SCH ×2 (08:16→21:33)
[2016-10-16] MEDS: INSULIN ASPART 100 UNITS/ML 3 ML PEN SC SCH ×4 (08:16→21:00)
[2016-10-16] MEDS: CEFTAROLINE FOSAMIL INJ 600 MG in SODIUM CHLORIDE 0.9% 250ML 250 ML IV SCH ×2 (10:13→21:34)
[2016-10-16] MEDS: WARFARIN SOD 2 MG TAB PO SCH (17:16)
--- NOTE | 2016-10-16 20:22 | Progress Note ---
Medicine Progress Note Date & Time of Visit: Oct 16, 2016 at 20:18. Subjective Patient seen and examined. Appears slightly more interactive today. States that he is ready to eat. Objective Last 8 Hrs Date Time Temp Pulse Resp B/P Pulse Ox O2 Delivery O2 Flow Rate FiO2 10/16/16 19:35 68 16 92 Room Air 10/16/16 16:00 93 Room Air 10/16/16 14:54 36.1 60 18 161/78 93 Room Air 10/16/16 13:55 70 14 94 Room Air Physical Exam: General-awake; alert; NAD Eyes-EOMI; no scleral icterus Neck-no stridor; trachea midline Lungs-CTA bilaterally anteriorly Heart-RRR; no m/r/g Abdomen-soft; NT; nBS; ostomy site c/d/i Extremities-no deformity Neuro-unable to assess Laboratory Results: Last 24 Hours Test 10/15/16 20:24 10/16/16 06:20 10/16/16 07:39 10/16/16 11:16 Bedside Glucose 103 mg/dl 91 mg/dl 108 mg/dl White Blood Count 5.45 K/uL Red Blood Count 3.75 M/uL Hemoglobin 10.0 g/dL Hematocrit 32.3 % Mean Corpuscular Volume 86.1 fL Mean Corpuscular Hemoglobin 26.7 pg Mean Corpuscular Hemoglobin Concent 31.0 g/dl RDW Standard Deviation 58.4 fL RDW Coefficient of Variation 18.5 % Platelet Count 245 K/uL Mean Platelet Volume 10.1 fL Prothrombin Time 24.9 SECONDS Prothromb Time International Ratio 2.2 Sodium Level 145 mmol/L Potassium Level 3.9 mmol/L Chloride Level 106 mmol/L Carbon Dioxide Level 33 mmol/L Anion Gap 6.0 mmol/L Blood Urea Nitrogen 17 mg/dl Creatinine 0.95 mg/dl Est Creatinine Clear Calc Drug Dose 82.2 ml/min Estimated GFR () 91.0 Estimated GFR (Non- 78.5 BUN/Creatinine Ratio 17.7 Random Glucose 116 mg/dl Calcium Level 8.7 mg/dl Test 10/16/16 15:57 Bedside Glucose 103 mg/dl Assessment & Plan Metabolic encephalopathy - presented with confusion - possibly due to infection - started on Cefepime --> changed to ceftaroline - ID consulted - urine culture negative - blood cultures negative - sputum culture with MRSA - bone scan negative - CT head on admission negative [place] - resolved with IVF's Recent colectomy s/p colostomy - CT a/p unremarkable - surgery done 10/03 Chronic hypercapnia - nocturnal BiPAP Paroxysmal A fib - continue warfarin and sotalol - INR therapeutic DM type 2 - hold oral agents - SSI DVT prophylaxis with warfarin Dispo to [facility] when medically stable Consultants: Infectious disease Procedures: Bone Scan Mild radiotracer uptake within the proximal right femur on the delayed sequences only located at the deformed proximal right femur in the region of the heterotopic ossification. No evidence for positive three-phase uptake. Therefore, this is less likely to represent infection. The radiotracer uptake may be related to the heterotopic ossification/new bone formation. CT a/p 1. Interval sigmoid resection with creation of a left lower quadrant ostomy 2. No evidence of bowel obstruction. No evidence of free air 3. Infiltration and nodularity of the mid pelvic mesenteric fat, likely postsurgical 4. No evidence of a drainable abscess 5. Mild retroperitoneal and pelvic lymphadenopathy, likely postsurgical. 6. 3 cm soft tissue nodule adjacent to the sigmoid stump, likely postsurgical. 7. Persistent erosive/destructive changes involving the right acetabulum. Joint effusion. Possible sinus tract to the right lateral skin surface 8. Bibasilar pulmonary opacities likely atelectatic Current Inpatient Medications: Current Inpatient Medications Medications (Trade) Dose Ordered Sig/Betzy Route Start Time Stop Time Status Last Admin Dose Admin Acetaminophen (Tylenol Tab) 650 mg Q4H PRN PO 10/12/16 12:15 11/11/16 12:14 Ondansetron HCl (Zofran Inj) 4 mg Q6H PRN IV 10/12/16 12:15 11/11/16 12:14 Glucose (Glucose 40% Gel) 15-30 GRAMS 15 GRAMS... UD PRN PO 10/12/16 12:30 11/11/16 12:29 Glucose (Glucose Chew Tab) 4-8 Tablets 4 Tabl... UD PRN PO 10/12/16 12:30 11/11/16 12:29 Dextrose (Dextrose 50% 50ML Syringe) 25-50ML OF 50% DW IV FOR... UD PRN IV 10/12/16 12:30 11/11/16 12:29 Glucagon (Glucagon Inj) 1 mg UD PRN SQ 10/12/16 12:30 11/11/16 12:29 Amitriptyline HCl (Elavil Tab) 10 mg BID PO 10/12/16 21:00 11/11/16 20:59 10/16/16 08:07 10 MG Amlodipine Besylate (Norvasc Tab) 5 mg DAILY PO 10/13/16 09:00 11/12/16 08:59 10/16/16 08:07 5 MG Aspirin (Aspirin Chew) 81 mg QAM PO 10/13/16 09:00 11/12/16 08:59 10/16/16 08:08 81 MG Baclofen (Lioresal Tab) 20 mg BID PO 10/12/16 21:00 11/11/16 20:59 10/16/16 08:08 20 MG Diclofenac Sodium (Voltaren 1% Top Gel) 1 appln TID EXT 10/12/16 14:00 11/11/16 13:59 10/16/16 14:35 1 APPLN Duloxetine HCl (Cymbalta Cap) 60 mg QAM PO 10/13/16 09:00 11/12/16 08:59 10/16/16 08:08 60 MG Ferrous Sulfate (Feosol Tab) 325 mg BIDM PO 10/12/16 16:45 11/11/16 17:59 10/16/16 17:17 325 MG Albuterol/ Ipratropium (Duoneb) 3 ml Q6R INH 10/12/16 15:00 11/11/16 14:59 10/16/16 19:31 3 ML Magnesium Hydroxide (Milk Of Magnesia Susp) 30 ml DAILY PRN PO 10/12/16 12:30 11/11/16 12:29 Oxycodone HCl (Roxicodone Immediate Rel Tab) 5 mg Q4H PRN PO 10/12/16 12:30 10/26/16 12:29 Pantoprazole Sodium (Protonix Tab) 40 mg QAM PO 10/13/16 09:00 11/12/16 08:59 10/16/16 08:07 40 MG Pregabalin (Lyrica Cap) 75 mg BID PO 10/12/16 21:00 11/11/16 20:59 10/16/16 08:16 75 MG Rosuvastatin Calcium (Crestor Tab) 10 mg DAILY PO 10/13/16 09:00 11/12/16 08:59 10/16/16 08:07 10 MG Sodium Chloride ([place] Nasal [place]) 2 sprays Q4H PRN SABRINA 10/12/16 12:30 11/11/16 12:29 Senna/Docusate Sodium (Senokot S Tab) 2 tab DAILY PO 10/13/16 09:00 11/12/16 08:59 10/16/16 08:07 2 TAB Sodium Biphosphate/ Sodium Phosphate (Fleet Enema) 132 ml DAILY PRN [place] 10/12/16 12:30 11/11/16 12:29 Sotalol HCl (Betapace Tab) 80 mg BID PO 10/12/16 21:00 11/11/16 20:59 10/16/16 08:08 80 MG Warfarin Sodium (Coumadin Tab) 2 mg SuTuThSa@1600 PO 10/12/16 18:00 11/11/16 17:59 10/16/16 17:16 2 MG Nitroglycerin (Nitrostat Tab) 0.4 mg UD PRN SL 10/12/16 12:45 11/11/16 12:44 Warfarin Sodium (Coumadin Tab) 4 mg MoWeFr@1600 PO 10/13/16 16:00 11/12/16 15:59 10/15/16 16:25 4 MG Metoprolol Tartrate (Lopressor Iv) 5 mg Q6 PRN IV 10/12/16 21:45 11/11/16 21:44 Insulin Aspart SLIDING SCALE If C... ACHS SC 10/13/16 11:00 11/12/16 10:59 10/16/16 08:16 1 UNITS Ceftaroline Fosamil/Sodium Chloride (Teflaro Inj/Nss 250ml) 270 ml @ 250 mls/hr Q12H IV 10/16/16 10:00 10/23/16 09:59 10/16/16 10:13 250 MLS/HR
[2016-10-16] MEDS: OXYCODONE HCL IR 5 MG TAB (IMMEDIATE RELEASE) PO PRN (22:17)
[2016-10-17] VITALS (10 sets, daily range): BP systolic 137–167; BP diastolic 82–97; PULSE 58–72; TEMP 36.2–36.7; O2SAT 91–100
[2016-10-17] MEDS: ALBUT/IPRATROP 3MG/0.5MG NEB 3 ML VIAL INH SCH ×4 (01:56→19:17)
[2016-10-17] MEDS: DULOXETINE HCL 60 MG CAP PO SCH (07:54)
[2016-10-17] MEDS: FERROUS SULFATE 325 MG TAB PO SCH ×2 (07:54→17:48)
[2016-10-17] MEDS: DOCUSATE SODIUM/SENNA 50/8.6MG TAB PO SCH (07:54)
[2016-10-17] MEDS: SOTALOL HCL 80 MG TAB PO SCH ×2 (07:54→20:42)
[2016-10-17] MEDS: PANTOprazole SOD 40 MG TAB PO SCH (07:54)
[2016-10-17] MEDS: ROSUVASTATIN CALCIUM 10 MG TAB PO SCH (07:54)
[2016-10-17] MEDS: AMITRIPTYLINE HCL 10 MG TAB PO SCH ×2 (07:55→20:42)
[2016-10-17] MEDS: AMLODIPINE BESYLATE 5 MG TAB PO SCH (07:55)
[2016-10-17] MEDS: DICLOFENAC SOD 1% GEL 100 GM TUBE EXT SCH ×3 (07:55→20:42)
[2016-10-17] MEDS: BACLOFEN TAB 20 MG TAB PO SCH ×2 (07:55→20:42)
[2016-10-17] MEDS: PREGABALIN 75 MG CAP PO SCH ×2 (07:59→20:49)
[2016-10-17] MEDS: ASPIRIN 81 MG CHEW PO SCH (07:59)
[2016-10-17] MEDS: OXYCODONE HCL IR 5 MG TAB (IMMEDIATE RELEASE) PO PRN ×2 (07:59→23:42)
[2016-10-17] MEDS: INSULIN ASPART 100 UNITS/ML 3 ML PEN SC SCH ×4 (08:00→20:48)
[2016-10-17] MEDS: CEFTAROLINE FOSAMIL INJ 600 MG in SODIUM CHLORIDE 0.9% 250ML 250 ML IV SCH ×2 (09:48→22:05)
[2016-10-17 10:05] LABS: MEAN CELL VOLUME 85.4 fL (80-100); MEAN CORPUSCULAR HEMOGLOBIN 26.4 pg (25-34); MEAN CORPUSCULAR HGB CONC 30.9 g/dl (32-36); MEAN PLATELET VOLUME 9.8 fL (7.4-10.4); PLATELET COUNT 216 K/uL (130-400); RED BLOOD COUNT 3.98 M/uL (4.7-6.1); WHITE BLOOD COUNT 6.11 K/uL (4.8-10.8)
[2016-10-17 10:15] LABS: INR 2.6 (0.9-1.1); PROTHROMBIN TIME (PATIENT) 29.5 SECONDS (9.0-12.0)
[2016-10-17 10:35] LABS: BUN/CREATININE RATIO 12.2 (10-20); CALCIUM 8.3 mg/dl (8.5-10.1); CREATININE 1.3 mg/dl (0.60-1.40); POTASSIUM 3.7 mmol/L (3.5-5.1)
[2016-10-17] MEDS: WARFARIN SOD 4 MG TAB PO SCH (15:48)
--- NOTE | 2016-10-17 17:34 | Infectious Disease Progress Nt ---
Progress Note Date of Service Oct 17, 2016. Subjective Pt evaluation today including: conversation w/ patient, physical exam, chart review, lab review, review of studies, conversation w/ national sales consultant, review of inpatient medication list No obvious problems overnight. Remains afebrile. Tolerating antibiotic without apparent difficulty. All Other Systems: Reviewed and Negative Medications Current Inpatient Medications Medications (Trade) Dose Ordered Sig/Betzy Route Start Time Stop Time Status Last Admin Dose Admin Acetaminophen (Tylenol Tab) 650 mg Q4H PRN PO 10/12/16 12:15 11/11/16 12:14 Ondansetron HCl (Zofran Inj) 4 mg Q6H PRN IV 10/12/16 12:15 11/11/16 12:14 Glucose (Glucose 40% Gel) 15-30 GRAMS 15 GRAMS... UD PRN PO 10/12/16 12:30 11/11/16 12:29 Glucose (Glucose Chew Tab) 4-8 Tablets 4 Tabl... UD PRN PO 10/12/16 12:30 11/11/16 12:29 Dextrose (Dextrose 50% 50ML Syringe) 25-50ML OF 50% DW IV FOR... UD PRN IV 10/12/16 12:30 11/11/16 12:29 Glucagon (Glucagon Inj) 1 mg UD PRN SQ 10/12/16 12:30 11/11/16 12:29 Amitriptyline HCl (Elavil Tab) 10 mg BID PO 10/12/16 21:00 11/11/16 20:59 10/17/16 07:55 10 MG Amlodipine Besylate (Norvasc Tab) 5 mg DAILY PO 10/13/16 09:00 11/12/16 08:59 10/17/16 07:55 5 MG Aspirin (Aspirin Chew) 81 mg QAM PO 10/13/16 09:00 11/12/16 08:59 10/17/16 07:59 81 MG Baclofen (Lioresal Tab) 20 mg BID PO 10/12/16 21:00 11/11/16 20:59 10/17/16 07:55 20 MG Diclofenac Sodium (Voltaren 1% Top Gel) 1 appln TID EXT 10/12/16 14:00 11/11/16 13:59 10/17/16 13:50 1 APPLN Duloxetine HCl (Cymbalta Cap) 60 mg QAM PO 10/13/16 09:00 11/12/16 08:59 10/17/16 07:54 60 MG Ferrous Sulfate (Feosol Tab) 325 mg BIDM PO 10/12/16 16:45 11/11/16 17:59 10/17/16 07:54 325 MG Albuterol/ Ipratropium (Duoneb) 3 ml Q6R INH 10/12/16 15:00 11/11/16 14:59 10/17/16 13:59 3 ML Magnesium Hydroxide (Milk Of Magnesia Susp) 30 ml DAILY PRN PO 10/12/16 12:30 11/11/16 12:29 Oxycodone HCl (Roxicodone Immediate Rel Tab) 5 mg Q4H PRN PO 10/12/16 12:30 10/26/16 12:29 10/17/16 07:59 5 MG Pantoprazole Sodium (Protonix Tab) 40 mg QAM PO 10/13/16 09:00 11/12/16 08:59 10/17/16 07:54 40 MG Pregabalin (Lyrica Cap) 75 mg BID PO 10/12/16 21:00 11/11/16 20:59 10/17/16 07:59 75 MG Rosuvastatin Calcium (Crestor Tab) 10 mg DAILY PO 10/13/16 09:00 11/12/16 08:59 10/17/16 07:54 10 MG Sodium Chloride ([place] Nasal [place]) 2 sprays Q4H PRN SABRINA 10/12/16 12:30 11/11/16 12:29 Senna/Docusate Sodium (Senokot S Tab) 2 tab DAILY PO 10/13/16 09:00 11/12/16 08:59 10/17/16 07:54 2 TAB Sodium Biphosphate/ Sodium Phosphate (Fleet Enema) 132 ml DAILY PRN [place] 10/12/16 12:30 11/11/16 12:29 Sotalol HCl (Betapace Tab) 80 mg BID PO 10/12/16 21:00 11/11/16 20:59 10/17/16 07:54 80 MG Warfarin Sodium (Coumadin Tab) 2 mg SuTuThSa@1600 PO 10/12/16 18:00 11/11/16 17:59 10/16/16 17:16 2 MG Nitroglycerin (Nitrostat Tab) 0.4 mg UD PRN SL 10/12/16 12:45 11/11/16 12:44 Warfarin Sodium (Coumadin Tab) 4 mg MoWeFr@1600 PO 10/13/16 16:00 11/12/16 15:59 10/17/16 15:48 4 MG Metoprolol Tartrate (Lopressor Iv) 5 mg Q6 PRN IV 10/12/16 21:45 11/11/16 21:44 Insulin Aspart SLIDING SCALE If C... ACHS SC 10/13/16 11:00 11/12/16 10:59 10/16/16 08:16 1 UNITS Ceftaroline Fosamil/Sodium Chloride (Teflaro Inj/Nss 250ml) 270 ml @ 250 mls/hr Q12H IV 10/16/16 10:00 10/23/16 09:59 10/17/16 09:48 250 MLS/HR Objective Vital Signs Date Time Temp Pulse Resp B/P Pulse Ox O2 Delivery O2 Flow Rate FiO2 10/17/16 16:00 93 Room Air 50 10/17/16 15:46 36.3 58 18 137/86 93 Room Air 10/17/16 14:01 64 16 96 Room Air 10/17/16 08:18 36.2 71 16 153/85 100 10/17/16 08:00 92 Room Air 10/17/16 07:06 72 16 100 Room Air 10/17/16 01:56 69 16 91 Room Air 10/17/16 00:00 Room Air 10/17/16 00:00 167/97 10/16/16 23:45 150/99 10/16/16 23:23 36.7 61 18 162/91 92 Room Air 10/16/16 19:35 68 16 92 Room Air Physical Exam General Appearance: WD/WN, no apparent distress Eyes: normal inspection, sclerae normal ENT: normal ENT inspection, pharynx normal Neck: supple, no adenopathy, trachea midline Respiratory/Chest: lungs clear, normal breath sounds, no respiratory distress Cardiovascular: regular rate, rhythm, no gallop, no murmur Abdomen: normal bowel sounds, non tender, soft, no organomegaly Extremities: non-tender, no calf tenderness Neurologic/Psychiatric: alert, oriented x 3 Skin: normal color, no rash Lymphatic: no adenopathy Laboratory Results Last 24 Hours Test 10/16/16 20:18 10/17/16 07:51 10/17/16 09:55 10/17/16 11:12 Bedside Glucose 93 mg/dl 105 mg/dl 143 mg/dl White Blood Count 6.11 K/uL Red Blood Count 3.98 M/uL Hemoglobin 10.5 g/dL Hematocrit 34.0 % Mean Corpuscular Volume 85.4 fL Mean Corpuscular Hemoglobin 26.4 pg Mean Corpuscular Hemoglobin Concent 30.9 g/dl RDW Standard Deviation 58.6 fL RDW Coefficient of Variation 18.9 % Platelet Count 216 K/uL Mean Platelet Volume 9.8 fL Prothrombin Time 29.5 SECONDS Prothromb Time International Ratio 2.6 Sodium Level 144 mmol/L Potassium Level 3.7 mmol/L Chloride Level 106 mmol/L Carbon Dioxide Level 28 mmol/L Anion Gap 10.0 mmol/L Blood Urea Nitrogen 16 mg/dl Creatinine 1.30 mg/dl Est Creatinine Clear Calc Drug Dose 60.1 ml/min Estimated GFR () 62.3 Estimated GFR (Non- 53.8 BUN/Creatinine Ratio 12.2 Random Glucose 191 mg/dl Calcium Level 8.3 mg/dl Test 10/17/16 16:28 Bedside Glucose 114 mg/dl Assessment and Plan 76-year-old male with history of neurogenic bladder and recurrent urinary tract infections with encephalopathy, status post recent hospitalization for sigmoid volvulus requiring resection, now presents with 1 day history of acute change in mental status and abnormal urinalysis, consistent with prior episodes of sepsis with urinary tract infection and encephalopathy. Urine culture is negative, sputum growing MRSA, now on ceftaroline. Appears slightly improved. Will continue present Rx and discuss with all involved.
--- NOTE | 2016-10-17 18:49 | Progress Note ---
Medicine Progress Note Date & Time of Visit: Oct 17, 2016 at 18:47. Subjective Patient seen and examined. Cousin present at bedside. Patient states that he is hungry and is not being fed. Objective Last 8 Hrs Date Time Temp Pulse Resp B/P Pulse Ox O2 Delivery O2 Flow Rate FiO2 10/17/16 16:00 93 Room Air 50 10/17/16 15:46 36.3 58 18 137/86 93 Room Air 10/17/16 14:01 64 16 96 Room Air Physical Exam: General-awake; alert; NAD Eyes-EOMI; no scleral icterus Neck-no stridor; trachea midline Lungs-CTA bilaterally anteriorly Heart-RRR; no m/r/g Abdomen-soft; NT; nBS; ostomy site c/d/i Extremities-no deformity Neuro-oriented x3; appropriately identifies family; answers questions appropriately; intelligible speech Laboratory Results: Last 24 Hours Test 10/16/16 20:18 10/17/16 07:51 10/17/16 09:55 10/17/16 11:12 Bedside Glucose 93 mg/dl 105 mg/dl 143 mg/dl White Blood Count 6.11 K/uL Red Blood Count 3.98 M/uL Hemoglobin 10.5 g/dL Hematocrit 34.0 % Mean Corpuscular Volume 85.4 fL Mean Corpuscular Hemoglobin 26.4 pg Mean Corpuscular Hemoglobin Concent 30.9 g/dl RDW Standard Deviation 58.6 fL RDW Coefficient of Variation 18.9 % Platelet Count 216 K/uL Mean Platelet Volume 9.8 fL Prothrombin Time 29.5 SECONDS Prothromb Time International Ratio 2.6 Sodium Level 144 mmol/L Potassium Level 3.7 mmol/L Chloride Level 106 mmol/L Carbon Dioxide Level 28 mmol/L Anion Gap 10.0 mmol/L Blood Urea Nitrogen 16 mg/dl Creatinine 1.30 mg/dl Est Creatinine Clear Calc Drug Dose 60.1 ml/min Estimated GFR () 62.3 Estimated GFR (Non- 53.8 BUN/Creatinine Ratio 12.2 Random Glucose 191 mg/dl Calcium Level 8.3 mg/dl Test 10/17/16 16:28 Bedside Glucose 114 mg/dl Assessment & Plan Metabolic encephalopathy -- improving - presented with confusion - possibly due to infection - started on Cefepime --> changed to ceftaroline - ID consulted - urine culture negative - blood cultures negative - sputum culture with MRSA - bone scan negative - CT head on admission negative [place] - resolved with IVF's Recent colectomy s/p colostomy - CT a/p unremarkable - surgery done 10/03 Chronic hypercapnia - nocturnal BiPAP Paroxysmal A fib - continue warfarin and sotalol - INR therapeutic DM type 2 - hold oral agents - SSI DVT prophylaxis with warfarin Dispo to [facility] when medically stable Consultants: Infectious disease Procedures: Bone Scan Mild radiotracer uptake within the proximal right femur on the delayed sequences only located at the deformed proximal right femur in the region of the heterotopic ossification. No evidence for positive three-phase uptake. Therefore, this is less likely to represent infection. The radiotracer uptake may be related to the heterotopic ossification/new bone formation. CT a/p 1. Interval sigmoid resection with creation of a left lower quadrant ostomy 2. No evidence of bowel obstruction. No evidence of free air 3. Infiltration and nodularity of the mid pelvic mesenteric fat, likely postsurgical 4. No evidence of a drainable abscess 5. Mild retroperitoneal and pelvic lymphadenopathy, likely postsurgical. 6. 3 cm soft tissue nodule adjacent to the sigmoid stump, likely postsurgical. 7. Persistent erosive/destructive changes involving the right acetabulum. Joint effusion. Possible sinus tract to the right lateral skin surface 8. Bibasilar pulmonary opacities likely atelectatic Current Inpatient Medications: Current Inpatient Medications Medications (Trade) Dose Ordered Sig/Betzy Route Start Time Stop Time Status Last Admin Dose Admin Acetaminophen (Tylenol Tab) 650 mg Q4H PRN PO 10/12/16 12:15 11/11/16 12:14 Ondansetron HCl (Zofran Inj) 4 mg Q6H PRN IV 10/12/16 12:15 11/11/16 12:14 Glucose (Glucose 40% Gel) 15-30 GRAMS 15 GRAMS... UD PRN PO 10/12/16 12:30 11/11/16 12:29 Glucose (Glucose Chew Tab) 4-8 Tablets 4 Tabl... UD PRN PO 10/12/16 12:30 11/11/16 12:29 Dextrose (Dextrose 50% 50ML Syringe) 25-50ML OF 50% DW IV FOR... UD PRN IV 10/12/16 12:30 11/11/16 12:29 Glucagon (Glucagon Inj) 1 mg UD PRN SQ 10/12/16 12:30 11/11/16 12:29 Amitriptyline HCl (Elavil Tab) 10 mg BID PO 10/12/16 21:00 11/11/16 20:59 10/17/16 07:55 10 MG Amlodipine Besylate (Norvasc Tab) 5 mg DAILY PO 10/13/16 09:00 11/12/16 08:59 10/17/16 07:55 5 MG Aspirin (Aspirin Chew) 81 mg QAM PO 10/13/16 09:00 11/12/16 08:59 10/17/16 07:59 81 MG Baclofen (Lioresal Tab) 20 mg BID PO 10/12/16 21:00 11/11/16 20:59 10/17/16 07:55 20 MG Diclofenac Sodium (Voltaren 1% Top Gel) 1 appln TID EXT 10/12/16 14:00 11/11/16 13:59 10/17/16 13:50 1 APPLN Duloxetine HCl (Cymbalta Cap) 60 mg QAM PO 10/13/16 09:00 11/12/16 08:59 10/17/16 07:54 60 MG Ferrous Sulfate (Feosol Tab) 325 mg BIDM PO 10/12/16 16:45 11/11/16 17:59 10/17/16 17:48 325 MG Albuterol/ Ipratropium (Duoneb) 3 ml Q6R INH 10/12/16 15:00 11/11/16 14:59 10/17/16 13:59 3 ML Magnesium Hydroxide (Milk Of Magnesia Susp) 30 ml DAILY PRN PO 10/12/16 12:30 11/11/16 12:29 Oxycodone HCl (Roxicodone Immediate Rel Tab) 5 mg Q4H PRN PO 10/12/16 12:30 10/26/16 12:29 10/17/16 07:59 5 MG Pantoprazole Sodium (Protonix Tab) 40 mg QAM PO 10/13/16 09:00 11/12/16 08:59 10/17/16 07:54 40 MG Pregabalin (Lyrica Cap) 75 mg BID PO 10/12/16 21:00 11/11/16 20:59 10/17/16 07:59 75 MG Rosuvastatin Calcium (Crestor Tab) 10 mg DAILY PO 10/13/16 09:00 11/12/16 08:59 10/17/16 07:54 10 MG Sodium Chloride ([place] Nasal [place]) 2 sprays Q4H PRN SABRINA 10/12/16 12:30 11/11/16 12:29 Senna/Docusate Sodium (Senokot S Tab) 2 tab DAILY PO 10/13/16 09:00 11/12/16 08:59 10/17/16 07:54 2 TAB Sodium Biphosphate/ Sodium Phosphate (Fleet Enema) 132 ml DAILY PRN [place] 10/12/16 12:30 11/11/16 12:29 Sotalol HCl (Betapace Tab) 80 mg BID PO 10/12/16 21:00 11/11/16 20:59 10/17/16 07:54 80 MG Warfarin Sodium (Coumadin Tab) 2 mg SuTuThSa@1600 PO 10/12/16 18:00 11/11/16 17:59 10/16/16 17:16 2 MG Nitroglycerin (Nitrostat Tab) 0.4 mg UD PRN SL 10/12/16 12:45 11/11/16 12:44 Warfarin Sodium (Coumadin Tab) 4 mg MoWeFr@1600 PO 10/13/16 16:00 11/12/16 15:59 10/17/16 15:48 4 MG Metoprolol Tartrate (Lopressor Iv) 5 mg Q6 PRN IV 10/12/16 21:45 11/11/16 21:44 Insulin Aspart SLIDING SCALE If C... ACHS SC 10/13/16 11:00 11/12/16 10:59 10/17/16 17:47 2 UNITS Ceftaroline Fosamil/Sodium Chloride (Teflaro Inj/Nss 250ml) 270 ml @ 250 mls/hr Q12H IV 10/16/16 10:00 10/23/16 09:59 10/17/16 09:48 250 MLS/HR
[2016-10-18 01:30] VITALS: PULSE 68; O2SAT 95
[2016-10-18] MEDS: ALBUT/IPRATROP 3MG/0.5MG NEB 3 ML VIAL INH SCH ×3 (01:30→14:08)
[2016-10-18 06:04] LABS: HEMATOCRIT 32.7 % (42-52); MEAN CELL VOLUME 84.1 fL (80-100); MEAN CORPUSCULAR HEMOGLOBIN 25.7 pg (25-34); MEAN CORPUSCULAR HGB CONC 30.6 g/dl (32-36); MEAN PLATELET VOLUME 9.9 fL (7.4-10.4); PLATELET COUNT 213 K/uL (130-400); RED BLOOD COUNT 3.89 M/uL (4.7-6.1)
[2016-10-18 06:16] LABS: INR 3.2 (0.9-1.1); PROTHROMBIN TIME (PATIENT) 35.5 SECONDS (9.0-12.0)
[2016-10-18 06:50] LABS: BUN/CREATININE RATIO 12.4 (10-20); CALCIUM 8.4 mg/dl (8.5-10.1); CREATININE 1.2 mg/dl (0.60-1.40); POTASSIUM 3.6 mmol/L (3.5-5.1)
[2016-10-18 07:55] VITALS: BP 133/79; PULSE 65; TEMP 36.4; O2SAT 94
[2016-10-18 08:00] VITALS: O2SAT 93
[2016-10-18] MEDS: AMITRIPTYLINE HCL 10 MG TAB PO SCH ×2 (09:29→20:25)
[2016-10-18] MEDS: AMLODIPINE BESYLATE 5 MG TAB PO SCH (09:29)
[2016-10-18] MEDS: SOTALOL HCL 80 MG TAB PO SCH ×2 (09:29→20:25)
[2016-10-18] MEDS: PANTOprazole SOD 40 MG TAB PO SCH (09:29)
[2016-10-18] MEDS: FERROUS SULFATE 325 MG TAB PO SCH ×2 (09:30→17:29)
[2016-10-18] MEDS: DICLOFENAC SOD 1% GEL 100 GM TUBE EXT SCH ×3 (09:30→20:43)
[2016-10-18] MEDS: ROSUVASTATIN CALCIUM 10 MG TAB PO SCH (09:31)
[2016-10-18] MEDS: DULOXETINE HCL 60 MG CAP PO SCH (09:31)
[2016-10-18] MEDS: DOCUSATE SODIUM/SENNA 50/8.6MG TAB PO SCH (09:31)
[2016-10-18] MEDS: BACLOFEN TAB 20 MG TAB PO SCH ×2 (09:31→20:25)
[2016-10-18] MEDS: PREGABALIN 75 MG CAP PO SCH ×2 (09:39→20:26)
[2016-10-18] MEDS: ASPIRIN 81 MG CHEW PO SCH (09:39)
[2016-10-18] MEDS: CEFTAROLINE FOSAMIL INJ 600 MG in SODIUM CHLORIDE 0.9% 250ML 250 ML IV SCH ×2 (09:39→20:31)
[2016-10-18] MEDS: INSULIN ASPART 100 UNITS/ML 3 ML PEN SC SCH ×4 (09:48→20:42)
[2016-10-18 16:13] VITALS: BP 128/84; PULSE 61; TEMP 36.3; O2SAT 94
--- NOTE | 2016-10-18 18:16 | Progress Note ---
Medicine Progress Note Date & Time of Visit: Oct 18, 2016 at 18:13. Subjective Patient seen and examined. Denies complaints. Asking about discharge. Tolerating diet. Objective Last 8 Hrs Date Time Temp Pulse Resp B/P Pulse Ox O2 Delivery O2 Flow Rate FiO2 10/18/16 16:13 36.3 61 18 128/84 94 Room Air 10/18/16 16:00 Room Air Physical Exam: General-awake; alert; NAD Eyes-EOMI; no scleral icterus Neck-no stridor; trachea midline Lungs-CTA bilaterally anteriorly Heart-RRR; no m/r/g Abdomen-soft; NT; nBS; ostomy site c/d/i Extremities-no deformity Neuro-oriented x3; answers questions appropriately; intelligible speech Laboratory Results: Last 24 Hours Test 10/17/16 20:36 10/18/16 05:45 10/18/16 07:31 10/18/16 11:49 Bedside Glucose 174 mg/dl 95 mg/dl 156 mg/dl White Blood Count 6.60 K/uL Red Blood Count 3.89 M/uL Hemoglobin 10.0 g/dL Hematocrit 32.7 % Mean Corpuscular Volume 84.1 fL Mean Corpuscular Hemoglobin 25.7 pg Mean Corpuscular Hemoglobin Concent 30.6 g/dl RDW Standard Deviation 57.9 fL RDW Coefficient of Variation 18.9 % Platelet Count 213 K/uL Mean Platelet Volume 9.9 fL Prothrombin Time 35.5 SECONDS Prothromb Time International Ratio 3.2 Sodium Level 142 mmol/L Potassium Level 3.6 mmol/L Chloride Level 105 mmol/L Carbon Dioxide Level 28 mmol/L Anion Gap 9.0 mmol/L Blood Urea Nitrogen 15 mg/dl Creatinine 1.20 mg/dl Est Creatinine Clear Calc Drug Dose 65.1 ml/min Estimated GFR () 68.6 Estimated GFR (Non- 59.2 BUN/Creatinine Ratio 12.4 Random Glucose 108 mg/dl Calcium Level 8.4 mg/dl Test 10/18/16 16:41 Bedside Glucose 124 mg/dl Assessment & Plan Metabolic encephalopathy -- improved - presented with confusion - possibly due to infection - started on Cefepime --> changed to ceftaroline - ID consulted - urine culture negative - blood cultures negative - sputum culture with MRSA - bone scan negative - CT head on admission negative [place] - resolved with IVF's Recent colectomy s/p colostomy - CT a/p unremarkable - surgery done 10/03 Chronic hypercapnia - nocturnal BiPAP Paroxysmal A fib - continue warfarin and sotalol - INR therapeutic DM type 2 - hold oral agents - SSI DVT prophylaxis with warfarin Dispo to [facility] when medically stable. Will need to d/w ID antibiotic choice and length of treatment. Consultants: Infectious disease Procedures: Bone Scan Mild radiotracer uptake within the proximal right femur on the delayed sequences only located at the deformed proximal right femur in the region of the heterotopic ossification. No evidence for positive three-phase uptake. Therefore, this is less likely to represent infection. The radiotracer uptake may be related to the heterotopic ossification/new bone formation. CT a/p 1. Interval sigmoid resection with creation of a left lower quadrant ostomy 2. No evidence of bowel obstruction. No evidence of free air 3. Infiltration and nodularity of the mid pelvic mesenteric fat, likely postsurgical 4. No evidence of a drainable abscess 5. Mild retroperitoneal and pelvic lymphadenopathy, likely postsurgical. 6. 3 cm soft tissue nodule adjacent to the sigmoid stump, likely postsurgical. 7. Persistent erosive/destructive changes involving the right acetabulum. Joint effusion. Possible sinus tract to the right lateral skin surface 8. Bibasilar pulmonary opacities likely atelectatic Current Inpatient Medications: Current Inpatient Medications Medications (Trade) Dose Ordered Sig/Betzy Route Start Time Stop Time Status Last Admin Dose Admin Acetaminophen (Tylenol Tab) 650 mg Q4H PRN PO 10/12/16 12:15 11/11/16 12:14 Ondansetron HCl (Zofran Inj) 4 mg Q6H PRN IV 10/12/16 12:15 11/11/16 12:14 Glucose (Glucose 40% Gel) 15-30 GRAMS 15 GRAMS... UD PRN PO 10/12/16 12:30 11/11/16 12:29 Glucose (Glucose Chew Tab) 4-8 Tablets 4 Tabl... UD PRN PO 10/12/16 12:30 11/11/16 12:29 Dextrose (Dextrose 50% 50ML Syringe) 25-50ML OF 50% DW IV FOR... UD PRN IV 10/12/16 12:30 11/11/16 12:29 Glucagon (Glucagon Inj) 1 mg UD PRN SQ 10/12/16 12:30 5/2/17 12:29 Amitriptyline HCl (Elavil Tab) 10 mg BID PO 10/12/16 21:00 11/11/16 20:59 10/18/16 09:29 10 MG Amlodipine Besylate (Norvasc Tab) 5 mg DAILY PO 10/13/16 09:00 11/12/16 08:59 10/18/16 09:29 5 MG Aspirin (Aspirin Chew) 81 mg QAM PO 10/13/16 09:00 11/12/16 08:59 10/18/16 09:39 81 MG Baclofen (Lioresal Tab) 20 mg BID PO 10/12/16 21:00 11/11/16 20:59 10/18/16 09:31 20 MG Diclofenac Sodium (Voltaren 1% Top Gel) 1 appln TID EXT 10/12/16 14:00 11/11/16 13:59 10/18/16 14:00 1 APPLN Duloxetine HCl (Cymbalta Cap) 60 mg QAM PO 10/13/16 09:00 11/12/16 08:59 10/18/16 09:31 60 MG Ferrous Sulfate (Feosol Tab) 325 mg BIDM PO 10/12/16 16:45 11/11/16 17:59 10/18/16 17:29 325 MG Albuterol/ Ipratropium (Duoneb) 3 ml Q6R INH 10/12/16 15:00 11/11/16 14:59 10/18/16 07:22 3 ML Magnesium Hydroxide (Milk Of Magnesia Susp) 30 ml DAILY PRN PO 10/12/16 12:30 11/11/16 12:29 Oxycodone HCl (Roxicodone Immediate Rel Tab) 5 mg Q4H PRN PO 10/12/16 12:30 10/26/16 12:29 10/17/16 23:42 5 MG Pantoprazole Sodium (Protonix Tab) 40 mg QAM PO 10/13/16 09:00 11/12/16 08:59 10/18/16 09:29 40 MG Pregabalin (Lyrica Cap) 75 mg BID PO 10/12/16 21:00 11/11/16 20:59 10/18/16 09:39 75 MG Rosuvastatin Calcium (Crestor Tab) 10 mg DAILY PO 10/13/16 09:00 11/12/16 08:59 10/18/16 09:31 10 MG Sodium Chloride ([place] Nasal [place]) 2 sprays Q4H PRN SABRINA 10/12/16 12:30 11/11/16 12:29 Senna/Docusate Sodium (Senokot S Tab) 2 tab DAILY PO 10/13/16 09:00 11/12/16 08:59 10/18/16 09:31 2 TAB Sodium Biphosphate/ Sodium Phosphate (Fleet Enema) 132 ml DAILY PRN [place] 10/12/16 12:30 11/11/16 12:29 Sotalol HCl (Betapace Tab) 80 mg BID PO 10/12/16 21:00 11/11/16 20:59 10/18/16 09:29 80 MG Warfarin Sodium (Coumadin Tab) 2 mg SuTuThSa@1600 PO 10/12/16 18:00 11/11/16 17:59 Future Hold 10/16/16 17:16 2 MG Nitroglycerin (Nitrostat Tab) 0.4 mg UD PRN SL 10/12/16 12:45 11/11/16 12:44 Warfarin Sodium (Coumadin Tab) 4 mg MoWeFr@1600 PO 10/13/16 16:00 11/12/16 15:59 10/17/16 15:48 4 MG Metoprolol Tartrate (Lopressor Iv) 5 mg Q6 PRN IV 10/12/16 21:45 11/11/16 21:44 Insulin Aspart SLIDING SCALE If C... ACHS SC 10/13/16 11:00 11/12/16 10:59 10/18/16 17:32 2 UNITS Ceftaroline Fosamil/Sodium Chloride (Teflaro Inj/Nss 250ml) 270 ml @ 250 mls/hr Q12H IV 10/16/16 10:00 10/23/16 09:59 10/18/16 09:39 250 MLS/HR
[2016-10-18] MEDS ORDERED: ALBUT/IPRATROP 3MG/0.5MG NEB 3 ML VIAL INH PRN (21:00)
[2016-10-19] VITALS: BP 128/84; PULSE 65; TEMP 36.4; O2SAT 92; O2SAT 94
[2016-10-19 06:40] VITALS: BP 128/84; PULSE 61; TEMP 36.3; O2SAT 94
[2016-10-19 07:38] VITALS: BP 119/73; PULSE 59; TEMP 36.5; O2SAT 92
[2016-10-19 07:41] LABS: HEMATOCRIT 30.1 % (42-52); MEAN CELL VOLUME 84.1 fL (80-100); MEAN CORPUSCULAR HEMOGLOBIN 25.4 pg (25-34); MEAN CORPUSCULAR HGB CONC 30.2 g/dl (32-36); MEAN PLATELET VOLUME 10.1 fL (7.4-10.4); PLATELET COUNT 177 K/uL (130-400); RED BLOOD COUNT 3.58 M/uL (4.7-6.1); WHITE BLOOD COUNT 5.51 K/uL (4.8-10.8)
[2016-10-19 07:52] LABS: PROTHROMBIN TIME (PATIENT) 33.4 SECONDS (9.0-12.0)
[2016-10-19 08:10] LABS: BUN/CREATININE RATIO 11.8 (10-20); CALCIUM 8.1 mg/dl (8.5-10.1); CREATININE 1.3 mg/dl (0.60-1.40); POTASSIUM 3.7 mmol/L (3.5-5.1)
[2016-10-19] MEDS: ASPIRIN 81 MG CHEW PO SCH (09:40)
[2016-10-19] MEDS: PREGABALIN 75 MG CAP PO SCH ×2 (09:40→20:53)
[2016-10-19] MEDS: AMLODIPINE BESYLATE 5 MG TAB PO SCH (09:41)
[2016-10-19] MEDS: PANTOprazole SOD 40 MG TAB PO SCH (09:42)
[2016-10-19] MEDS: DULOXETINE HCL 60 MG CAP PO SCH (09:42)
[2016-10-19] MEDS: AMITRIPTYLINE HCL 10 MG TAB PO SCH ×2 (09:42→20:51)
[2016-10-19] MEDS: ROSUVASTATIN CALCIUM 10 MG TAB PO SCH (09:42)
[2016-10-19] MEDS: FERROUS SULFATE 325 MG TAB PO SCH ×2 (09:42→17:10)
[2016-10-19] MEDS: BACLOFEN TAB 20 MG TAB PO SCH ×2 (09:43→20:52)
[2016-10-19] MEDS: DOCUSATE SODIUM/SENNA 50/8.6MG TAB PO SCH (09:43)
[2016-10-19] MEDS: CEFTAROLINE FOSAMIL INJ 600 MG in SODIUM CHLORIDE 0.9% 250ML 250 ML IV SCH ×2 (09:43→21:49)
[2016-10-19] MEDS: DICLOFENAC SOD 1% GEL 100 GM TUBE EXT SCH ×3 (09:46→20:52)
[2016-10-19] MEDS: INSULIN ASPART 100 UNITS/ML 3 ML PEN SC SCH ×4 (09:49→21:00)
[2016-10-19] MEDS: SOTALOL HCL 80 MG TAB PO SCH ×2 (11:07→20:51)
--- NOTE | 2016-10-19 14:44 | Progress Note ---
Medicine Progress Note Date & Time of Visit: Oct 19, 2016 at 14:41. Subjective Patient seen and examined. Eating 100% of meals. Interactive. Denies complaints. Objective Last 8 Hrs Date Time Temp Pulse Resp B/P Pulse Ox O2 Delivery O2 Flow Rate FiO2 10/19/16 08:12 Room Air 10/19/16 07:38 36.5 59 18 119/73 92 Room Air Physical Exam: General-awake; alert; NAD Eyes-EOMI; no scleral icterus Neck-no stridor; trachea midline Lungs-CTA bilaterally; no wheezes/crackles Heart-RRR; no m/r/g Abdomen-soft; NT; nBS; ostomy site c/d/i Extremities-no deformity Neuro-oriented x3; answers questions appropriately; intelligible speech Laboratory Results: Last 24 Hours Test 10/18/16 16:41 10/18/16 20:10 10/19/16 07:05 10/19/16 07:21 Bedside Glucose 124 mg/dl 127 mg/dl 118 mg/dl White Blood Count 5.51 K/uL Red Blood Count 3.58 M/uL Hemoglobin 9.1 g/dL Hematocrit 30.1 % Mean Corpuscular Volume 84.1 fL Mean Corpuscular Hemoglobin 25.4 pg Mean Corpuscular Hemoglobin Concent 30.2 g/dl RDW Standard Deviation 57.8 fL RDW Coefficient of Variation 18.9 % Platelet Count 177 K/uL Mean Platelet Volume 10.1 fL Prothrombin Time 33.4 SECONDS Prothromb Time International Ratio 3.0 Sodium Level 141 mmol/L Potassium Level 3.7 mmol/L Chloride Level 104 mmol/L Carbon Dioxide Level 29 mmol/L Anion Gap 8.0 mmol/L Blood Urea Nitrogen 15 mg/dl Creatinine 1.30 mg/dl Est Creatinine Clear Calc Drug Dose 60.1 ml/min Estimated GFR () 62.3 Estimated GFR (Non- 53.8 BUN/Creatinine Ratio 11.8 Random Glucose 118 mg/dl Calcium Level 8.1 mg/dl Test 10/19/16 11:27 Bedside Glucose 184 mg/dl Assessment & Plan Metabolic encephalopathy -- resolved - presented with confusion - possibly due to infection - started on cefepime --> changed to ceftaroline - ID consulted - urine culture negative - blood cultures negative - sputum culture with MRSA - bone scan negative - CT head on admission negative [place] - resolved with IVF's Recent colectomy s/p colostomy - CT a/p unremarkable - surgery done 10/03 - margie removed Chronic hypercapnia - nocturnal BiPAP Paroxysmal A fib - continue warfarin and sotalol - INR therapeutic DM type 2 - hold oral agents - SSI DVT prophylaxis with warfarin Dispo to [facility] when medically stable. Will need to d/w ID antibiotic choice and length of treatment. Consultants: Infectious disease Procedures: Bone Scan Mild radiotracer uptake within the proximal right femur on the delayed sequences only located at the deformed proximal right femur in the region of the heterotopic ossification. No evidence for positive three-phase uptake. Therefore, this is less likely to represent infection. The radiotracer uptake may be related to the heterotopic ossification/new bone formation. CT a/p 1. Interval sigmoid resection with creation of a left lower quadrant ostomy 2. No evidence of bowel obstruction. No evidence of free air 3. Infiltration and nodularity of the mid pelvic mesenteric fat, likely postsurgical 4. No evidence of a drainable abscess 5. Mild retroperitoneal and pelvic lymphadenopathy, likely postsurgical. 6. 3 cm soft tissue nodule adjacent to the sigmoid stump, likely postsurgical. 7. Persistent erosive/destructive changes involving the right acetabulum. Joint effusion. Possible sinus tract to the right lateral skin surface 8. Bibasilar pulmonary opacities likely atelectatic Current Inpatient Medications: Current Inpatient Medications Medications (Trade) Dose Ordered Sig/Betzy Route Start Time Stop Time Status Last Admin Dose Admin Acetaminophen (Tylenol Tab) 650 mg Q4H PRN PO 10/12/16 12:15 11/11/16 12:14 Ondansetron HCl (Zofran Inj) 4 mg Q6H PRN IV 10/12/16 12:15 11/11/16 12:14 Glucose (Glucose 40% Gel) 15-30 GRAMS 15 GRAMS... UD PRN PO 10/12/16 12:30 11/11/16 12:29 Glucose (Glucose Chew Tab) 4-8 Tablets 4 Tabl... UD PRN PO 10/12/16 12:30 11/11/16 12:29 Dextrose (Dextrose 50% 50ML Syringe) 25-50ML OF 50% DW IV FOR... UD PRN IV 10/12/16 12:30 11/11/16 12:29 Glucagon (Glucagon Inj) 1 mg UD PRN SQ 10/12/16 12:30 11/11/16 12:29 Amitriptyline HCl (Elavil Tab) 10 mg BID PO 10/12/16 21:00 11/11/16 20:59 10/19/16 09:42 10 MG Amlodipine Besylate (Norvasc Tab) 5 mg DAILY PO 10/13/16 09:00 11/12/16 08:59 10/19/16 09:41 5 MG Aspirin (Aspirin Chew) 81 mg QAM PO 10/13/16 09:00 11/12/16 08:59 10/19/16 09:40 81 MG Baclofen (Lioresal Tab) 20 mg BID PO 10/12/16 21:00 11/11/16 20:59 10/19/16 09:43 20 MG Diclofenac Sodium (Voltaren 1% Top Gel) 1 appln TID EXT 10/12/16 14:00 11/11/16 13:59 10/19/16 13:54 1 APPLN Duloxetine HCl (Cymbalta Cap) 60 mg QAM PO 10/13/16 09:00 11/12/16 08:59 10/19/16 09:42 60 MG Ferrous Sulfate (Feosol Tab) 325 mg BIDM PO 10/12/16 16:45 11/11/16 17:59 10/19/16 09:42 325 MG Magnesium Hydroxide (Milk Of Magnesia Susp) 30 ml DAILY PRN PO 10/12/16 12:30 11/11/16 12:29 Oxycodone HCl (Roxicodone Immediate Rel Tab) 5 mg Q4H PRN PO 10/12/16 12:30 10/26/16 12:29 10/17/16 23:42 5 MG Pantoprazole Sodium (Protonix Tab) 40 mg QAM PO 10/13/16 09:00 11/12/16 08:59 10/19/16 09:42 40 MG Pregabalin (Lyrica Cap) 75 mg BID PO 10/12/16 21:00 11/11/16 20:59 10/19/16 09:40 75 MG Rosuvastatin Calcium (Crestor Tab) 10 mg DAILY PO 10/13/16 09:00 11/12/16 08:59 10/19/16 09:42 10 MG Sodium Chloride ([place] Nasal [place]) 2 sprays Q4H PRN SABRINA 10/12/16 12:30 11/11/16 12:29 Senna/Docusate Sodium (Senokot S Tab) 2 tab DAILY PO 10/13/16 09:00 11/12/16 08:59 10/19/16 09:43 2 TAB Sodium Biphosphate/ Sodium Phosphate (Fleet Enema) 132 ml DAILY PRN PA 10/12/16 12:30 11/11/16 12:29 Sotalol HCl (Betapace Tab) 80 mg BID PO 10/12/16 21:00 11/11/16 20:59 10/19/16 11:07 80 MG Warfarin Sodium (Coumadin Tab) 2 mg SuTuThSa@1600 PO 10/12/16 18:00 11/11/16 17:59 Future Hold 10/16/16 17:16 2 MG Nitroglycerin (Nitrostat Tab) 0.4 mg UD PRN SL 10/12/16 12:45 11/11/16 12:44 Warfarin Sodium (Coumadin Tab) 4 mg MoWeFr@1600 PO 10/13/16 16:00 11/12/16 15:59 10/17/16 15:48 4 MG Metoprolol Tartrate (Lopressor Iv) 5 mg Q6 PRN IV 10/12/16 21:45 11/11/16 21:44 Insulin Aspart SLIDING SCALE If C... ACHS SC 10/13/16 11:00 11/12/16 10:59 10/19/16 12:33 3 UNITS Ceftaroline Fosamil/Sodium Chloride (Teflaro Inj/Nss 250ml) 270 ml @ 250 mls/hr Q12H IV 10/16/16 10:00 10/23/16 09:59 10/19/16 09:43 250 MLS/HR Albuterol/ Ipratropium (Duoneb) 3 ml Q6R PRN INH 10/18/16 21:00 11/17/16 20:59
[2016-10-19 15:25] VITALS: BP 117/72; PULSE 56; TEMP 36.4; O2SAT 92
[2016-10-20 08:00] VITALS: O2SAT 94
[2016-10-20 08:05] VITALS: BP 162/88; PULSE 56; TEMP 36.4; O2SAT 94
[2016-10-20] MEDS: AMITRIPTYLINE HCL 10 MG TAB PO SCH ×2 (08:29→21:06)
[2016-10-20] MEDS: PANTOprazole SOD 40 MG TAB PO SCH (08:29)
[2016-10-20] MEDS: AMLODIPINE BESYLATE 5 MG TAB PO SCH (08:30)
[2016-10-20] MEDS: BACLOFEN TAB 20 MG TAB PO SCH ×2 (08:30→21:08)
[2016-10-20] MEDS: DULOXETINE HCL 60 MG CAP PO SCH (08:30)
[2016-10-20] MEDS: SOTALOL HCL 80 MG TAB PO SCH ×2 (08:30→21:07)
[2016-10-20] MEDS: FERROUS SULFATE 325 MG TAB PO SCH ×2 (08:30→17:12)
[2016-10-20] MEDS: ROSUVASTATIN CALCIUM 10 MG TAB PO SCH (08:30)
[2016-10-20] MEDS: DOCUSATE SODIUM/SENNA 50/8.6MG TAB PO SCH (08:30)
[2016-10-20] MEDS: DICLOFENAC SOD 1% GEL 100 GM TUBE EXT SCH ×3 (08:31→21:11)
[2016-10-20] MEDS: PREGABALIN 75 MG CAP PO SCH ×2 (08:36→21:07)
[2016-10-20] MEDS: ASPIRIN 81 MG CHEW PO SCH (08:36)
[2016-10-20] MEDS: INSULIN ASPART 100 UNITS/ML 3 ML PEN SC SCH ×4 (08:36→21:00)
[2016-10-20] MEDS: OXYCODONE HCL IR 5 MG TAB (IMMEDIATE RELEASE) PO PRN (09:13)
[2016-10-20 09:14] LABS: INR 2.4 (0.9-1.1); PROTHROMBIN TIME (PATIENT) 27.1 SECONDS (9.0-12.0)
[2016-10-20] MEDS: CEFTAROLINE FOSAMIL INJ 600 MG in SODIUM CHLORIDE 0.9% 250ML 250 ML IV SCH (09:59)
[2016-10-20 11:02] VITALS: O2SAT 94
[2016-10-20 11:36] VITALS: BP 135/78; PULSE 60; TEMP 36.3; O2SAT 93
[2016-10-20] MEDS ORDERED: IPRASOL4 INH (13:01)
[2016-10-20] MEDS ORDERED: CEFD300C2 PO (13:01)
--- NOTE | 2016-10-20 13:04 | Discharge Instructions ---
Discharge Instructions Date of Service Oct 20, 2016. Admission Reason for Admission: Altered Mental Status; Urinary Tract Infection Discharge Discharge Diagnosis / Problem: Altered mental status. MRSA in sputum. Discharge Goals Goal(s): Improve disease control Activity Recommendations Activity Limitations: resume your previous activity . Instructions / Follow-Up Instructions / Follow-Up Please take Cefdinir twice a day through 10/23/15; please start this evening. Current Hospital Diet Patient's current hospital diet: Diabetes Type 2 Diet, Low Fat Diet, AHA Diet ( Heart Healthy) Discharge Diet Recommended Diet: AHA Diet (Heart Healthy), Diabetes Type 2 Diet Pending Studies Studies pending at discharge: no Laboratory Results Hemoglobin A1c Test 09/28/16 22:17 Range/Units Estimated Average Glucose 169 mg/dl Hemoglobin A1c 7.5 H 4.5-5.6 % Medical Emergencies . Who to Call and When: Medical Emergencies: If at any time you feel your situation is an emergency, please call 911 immediately. . Non-Emergent Contact Non-Emergency issues call your: Primary Care Provider . . "Provider Documentation" section prepared by Shaye Yates. VTE Core Measure Inpt VTE Proph given/why not?: Warfarin (Coumadin)
[2016-10-20] MEDS: WARFARIN SOD 4 MG TAB PO SCH (15:57)
--- NOTE | 2016-10-20 19:51 | Discharge Summary ---
Discharge Summary Date of Service Oct 20, 2016. Discharge Summary Admission Date: Oct 12, 2016 at 12:38 Discharge Date: Oct 20, 2016 Discharge Disposition: [facility] facility Principal Diagnosis: Metabolic encephalopathy Procedures: CT head No acute intracranial findings Bone Scan Mild radiotracer uptake within the proximal right femur on the delayed sequences only located at the deformed proximal right femur in the region of the heterotopic ossification. No evidence for positive three-phase uptake. Therefore, this is less likely to represent infection. The radiotracer uptake may be related to the heterotopic ossification/new bone formation. CT a/p 1. Interval sigmoid resection with creation of a left lower quadrant ostomy 2. No evidence of bowel obstruction. No evidence of free air 3. Infiltration and nodularity of the mid pelvic mesenteric fat, likely postsurgical 4. No evidence of a drainable abscess 5. Mild retroperitoneal and pelvic lymphadenopathy, likely postsurgical. 6. 3 cm soft tissue nodule adjacent to the sigmoid stump, likely postsurgical. 7. Persistent erosive/destructive changes involving the right acetabulum. Joint effusion. Possible sinus tract to the right lateral skin surface 8. Bibasilar pulmonary opacities likely atelectatic Consultations: Infectious disease Medication Reconciliation New Medications: Cefdinir (Omnicef) 300 Mg Cap 1 CAP PO BID for 3 Days, #5 CAP Changed Medications: Ipratropium-Albuterol (Duoneb) 3 Ml Nebu 1 TREATMENT INH Q6H PRN for SOB/Wheezing for 30 Days, INHA (Changed from: 3; Removed Instructions) Continued Medications: Acetaminophen (Tylenol) 325 Mg Tab 650 MG PO Q4H PRN for Pain Acetaminophen (Tylenol) 500 Mg Tab 500 MG PO TID, TAB Alum & Mag Hydrox-Simethicone (Rulox) 1 Yasmeen Yasmeen 30 ML PO QD PRN for Indigestion Amitriptyline HCl (Amitriptyline HCl) 10 Mg Tab 10 MG PO BID Amlodipine (Norvasc) 5 Mg Tab 5 MG PO DAILY, TAB Aspirin (Aspirin Chewable) 81 Mg Chew 81 MG PO QAM, TAB Baclofen (Baclofen) 20 Mg Tab 20 MG PO BID Diclofenac Sodium (Topical) (Diclofenac Sodium) 1 % Gel 1 APPLN TOP TID APPLY DIRECTED TO LEFT SHOULDER Duloxetine HCl (Duloxetine HCl) 60 Mg Cap 60 MG PO QAM Emollient (Moisturizing Cream) 1 Cre Cre 1 APPLN TOP HS APPLY DIRECTED TO DRY FEET Ferrous Sulfate (Ferrous Sulfate) 325 Mg Tab 325 MG PO BIDM Furosemide (Lasix) 20 Mg Tab 20 MG PO QAM, TAB Magnesium Hydroxide (Milk Of Magnesia) 30 Ml Susp 30 ML PO UD PRN for Constipation, ML ONE TIME DAILY FOR NO BOWEL MOVEMENT FOR 3 DAYS. ADMINISTER ON THE MORNING OF DAY 4. Metformin Hcl (Glucophage) 1,000 Mg Tab 1000 MG PO BID, TAB Metolazone (Zaroxolyn) 2.5 Mg Tab 2.5 MG PO 2XWK, TAB TAKE THIS MEDICATION EVERY THURSDAY AND THURSDAY Oxycodone HCl (Oxycodone HCl) 5 Mg Tab 5 MG PO Q4H PRN for Moderate to Severe Pain Oxygen (Oxygen) Gas 2 LITERS NA UD PRN for Shortness of Breath Pantoprazole Sodium (Protonix) 40 Mg Tab 40 MG PO QAM, TAB Polyvinyl Alcohol (Artificial Tears) 1.4 % Rossy 2 DROPS OPB UD INSTIL 2 DROPS INTO BOTH EYES AT THESE HOURS: 0900 1100 1300 1500 1700 1900 2100 Potassium Chloride (Potassium Chloride Er) 10 Meq Tab 20 MEQ PO TID, TAB Pregabalin (Lyrica) 75 Mg Cap 75 MG PO BID, CAP Rosuvastatin Calcium (Crestor) 10 Mg Tab 10 MG PO DAILY Saline ([place] Nasal Strang) 0.65 % Spr 2 SPRAYS SABRINA Q4H PRN for DRYNESS Saline (Deep Sea Nasal Strang) 0.65 % Spr 2 SPRAYS SABRINA UD INSTILL 2 SPRAYS INTO EACH NOSTRIL AT THE FOLLOWING HOURS: 0700, 0900, 1100, 1500, 1700, 1900, 2100 AND 2300 HOURS Sennosides-Docusate Sodium (Sen[place]on-S) 1 Tab Tab 2 TABS PO DAILY Simethicone (Gas Relief Extra Strength) 125 Mg Chw 125 MG PO TID Sodium Phosphate/Biphosphate (Fleet Enema) Keila 1 EA SC UD PRN for Constipation, BTL DAILY NEEDED ON DAY 6 IF DULCOLAX SUPPOSITORY WAS INEFFECTIVE Sotalol Hcl (Sotalol Hcl) 80 Mg Tab 80 MG PO BID, TAB Warfarin Sodium (Coumadin) 2 Mg Tab 2 MG PO 4XWK, TAB TAKE 2 MG EVERY THURSDAY,THURSDAY,THURSDAY, THURSDAY OR OTHERWISE DIRECTED TO TAKE BY ANTICOAGULATION CLINIC/MD Zinc Oxide (Topical) (Desitin) 40 % Oin 1 APPLN TOP BID APPLY TO SACRAL AREAS DIRECTED Admission Information HPI (per Admitting provider): This is a 76 y/o male with PMHx of chronic respiratory failure on home O2 PRN, Diastolic CHF on Lasix, CAD, HTN, PAF on Coumadin, DM 2, 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 Pt was recently admitted to [facility] from 09/28-10/10 with recurrent sigmoid volvulus that was treated with sigmoid bowel resection. Post-operatively patient was transfused 2 units pRBCs and required intubation for respiratory failure (due to obesity- hypoventilation and CHF exacerbation). In addition, urine culture grew drug- resistant pseudomonas and E.coli and patient was treated with 10-day course of Primaxin. Pt was discharged in stable condition to [facility] home. Per cousin at bedside, patient was as his baseline upon discharge. This morning she received a call that the patient had become progressively more lethargic and unresponsive over the past 24 hrs. Cousin adds that this is how the patient typically presents when he has an infection. Pt is unable to give any history at this time due to AMS. In the ED, pt was hypoxic on room air upon arrival. He is afebrile with no leukocytosis. Creat 1.9. UA 1+ bacteria. CXR + low lung volumes with L basilar atelectasis. CT abd/pelvis negative for acute process. Pt will be admitted for further evaluation and treatment. Physical Exam (per Admitting): General Appearance: WD/WN, no apparent distress, + pertinent finding (Pt is laying in bed sleeping on my arrival; cousin is at bedside ) Head: normocephalic, atraumatic Eyes: normal inspection ENT: hearing grossly normal Neck: supple Respiratory/Chest: chest non-tender, lungs clear, normal breath sounds, no respiratory distress Cardiovascular: regular rate, rhythm, no murmur Abdomen/GI: normal bowel sounds, non tender, soft, + pertinent finding ( surgical scar noted to left lower abdomen; no erythema or drainage noted; colostomy bag contains light brown stool ) Back: + pertinent finding (unable to inspect back at this time ) Extremities/Musculoskelatal: no calf tenderness, + pedal edema (trace), + pertinent finding (L knee >R knee; chronic venous stasis skin changes) Neurologic/Psych: + pertinent finding (arousable but very somnolent ) Skin: normal color, warm/dry Hospital Course Patient was admitted with metabolic encephalopathy from infection, initially thought to be from UTI. Therefore patient was started on cefepime. However urine and blood cultures were negative. Sputum culture did grow MRSA. Cefepime was changed to ceftaroline and patient's mental status returned to baseline. CT head was negative. Bone scan was negative. Ceftaroline was changed to cefdinir upon discharge to complete a course. Hospital course was complicated with [place] that resolved with IVF's. Patient had colectomy with diverting colostomy during his last hospitalization in September. CT a/p on admission was unremarkable for acute process. The margie were removed during this hospitalization. Patient was continued on the remainder of his home medications. Patient deemed stable for discharge back to [facility]. PE on discharge: General- awake; alert; NAD Eyes- EOMI; no scleral icterus Neck- no stridor; trachea midline Lungs- CTA bilaterally; no wheezes/crackles Heart- RRR; no m/r/g Abdomen- soft; NTND; nBS; colostomy c/d/i; incision c/d/i Extremities- no deformity Neuro- paraplegia Skin- no appreciable rash . Total time spent on discharge = This includes examination of the patient, discharge planning, medication reconciliation, and communication with other providers. Discharge Instructions Discharge Instructions Date of Service Oct 20, 2016. Admission Reason for Admission: Altered Mental Status; Urinary Tract Infection Discharge Discharge Diagnosis / Problem: Altered mental status. MRSA in sputum. Discharge Goals Goal(s): Improve disease control Activity Recommendations Activity Limitations: resume your previous activity . Instructions / Follow-Up Instructions / Follow-Up Please take Cefdinir twice a day through 10/23/15; please start this evening. Current Hospital Diet Patient's current hospital diet: Diabetes Type 2 Diet, Low Fat Diet, AHA Diet ( Heart Healthy) Discharge Diet Recommended Diet: AHA Diet (Heart Healthy), Diabetes Type 2 Diet Pending Studies Studies pending at discharge: no Laboratory Results Hemoglobin A1c Test 09/28/16 22:17 Range/Units Estimated Average Glucose 169 mg/dl Hemoglobin A1c 7.5 H 4.5-5.6 % Medical Emergencies . Who to Call and When: Medical Emergencies: If at any time you feel your situation is an emergency, please call 911 immediately. . Non-Emergent Contact Non-Emergency issues call your: Primary Care Provider . . "Provider Documentation" section prepared by Shaye Yates. VTE Core Measure Inpt VTE Proph given/why not?: Warfarin (Coumadin) Additional Copies To Lilo Davis M.D.
--- NOTE | 2016-10-20 19:52 | Infectious Disease Progress Nt ---
Progress Note Date of Service Oct 20, 2016. Subjective Pt evaluation today including: conversation w/ patient, physical exam, chart review, lab review, review of studies, conversation w/ in home sales consultant, review of inpatient medication list patient offers no new complaints today. Remains afebrile. No increase cough or shortness of breath. No other problems overnight. All Other Systems: Reviewed and Negative Medications Current Inpatient Medications Medications (Trade) Dose Ordered Sig/Betzy Route Start Time Stop Time Status Last Admin Dose Admin Acetaminophen (Tylenol Tab) 650 mg Q4H PRN PO 10/12/16 12:15 11/11/16 12:14 10/19/16 21:49 650 MG Ondansetron HCl (Zofran Inj) 4 mg Q6H PRN IV 10/12/16 12:15 11/11/16 12:14 Glucose (Glucose 40% Gel) 15-30 GRAMS 15 GRAMS... UD PRN PO 10/12/16 12:30 11/11/16 12:29 Glucose (Glucose Chew Tab) 4-8 Tablets 4 Tabl... UD PRN PO 10/12/16 12:30 11/11/16 12:29 Dextrose (Dextrose 50% 50ML Syringe) 25-50ML OF 50% DW IV FOR... UD PRN IV 10/12/16 12:30 11/11/16 12:29 Glucagon (Glucagon Inj) 1 mg UD PRN SQ 10/12/16 12:30 11/11/16 12:29 Amitriptyline HCl (Elavil Tab) 10 mg BID PO 10/12/16 21:00 11/11/16 20:59 10/20/16 08:29 10 MG Amlodipine Besylate (Norvasc Tab) 5 mg DAILY PO 10/13/16 09:00 11/12/16 08:59 10/20/16 08:30 5 MG Aspirin (Aspirin Chew) 81 mg QAM PO 10/13/16 09:00 11/12/16 08:59 10/20/16 08:36 81 MG Baclofen (Lioresal Tab) 20 mg BID PO 10/12/16 21:00 11/11/16 20:59 10/20/16 08:30 20 MG Diclofenac Sodium (Voltaren 1% Top Gel) 1 appln TID EXT 10/12/16 14:00 11/11/16 13:59 10/20/16 14:11 1 APPLN Duloxetine HCl (Cymbalta Cap) 60 mg QAM PO 10/13/16 09:00 11/12/16 08:59 10/20/16 08:30 60 MG Ferrous Sulfate (Feosol Tab) 325 mg BIDM PO 10/12/16 16:45 11/11/16 17:59 10/20/16 17:12 325 MG Magnesium Hydroxide (Milk Of Magnesia Susp) 30 ml DAILY PRN PO 10/12/16 12:30 11/11/16 12:29 Oxycodone HCl (Roxicodone Immediate Rel Tab) 5 mg Q4H PRN PO 10/12/16 12:30 10/26/16 12:29 10/20/16 09:13 5 MG Pantoprazole Sodium (Protonix Tab) 40 mg QAM PO 10/13/16 09:00 11/12/16 08:59 10/20/16 08:29 40 MG Pregabalin (Lyrica Cap) 75 mg BID PO 10/12/16 21:00 11/11/16 20:59 10/20/16 08:36 75 MG Rosuvastatin Calcium (Crestor Tab) 10 mg DAILY PO 10/13/16 09:00 11/12/16 08:59 10/20/16 08:30 10 MG Sodium Chloride (Ulen Nasal [place]) 2 sprays Q4H PRN SABRINA 10/12/16 12:30 11/11/16 12:29 Senna/Docusate Sodium (Senokot S Tab) 2 tab DAILY PO 10/13/16 09:00 11/12/16 08:59 10/20/16 08:30 2 TAB Sodium Biphosphate/ Sodium Phosphate (Fleet Enema) 132 ml DAILY PRN [place] 10/12/16 12:30 11/11/16 12:29 Sotalol HCl (Betapace Tab) 80 mg BID PO 10/12/16 21:00 11/11/16 20:59 10/20/16 08:30 80 MG Warfarin Sodium (Coumadin Tab) 2 mg SuTuThSa@1600 PO 10/12/16 18:00 11/11/16 17:59 Future Hold 10/16/16 17:16 2 MG Nitroglycerin (Nitrostat Tab) 0.4 mg UD PRN SL 10/12/16 12:45 11/11/16 12:44 Warfarin Sodium (Coumadin Tab) 4 mg MoWeFr@1600 PO 10/13/16 16:00 11/12/16 15:59 10/20/16 15:57 4 MG Metoprolol Tartrate (Lopressor Iv) 5 mg Q6 PRN IV 10/12/16 21:45 11/11/16 21:44 Insulin Aspart (novoLOG ASPART) SLIDING SCALE If C... ACHS SC 10/13/16 11:00 11/12/16 10:59 10/20/16 18:25 2 UNITS Albuterol/ Ipratropium (Duoneb) 3 ml Q6R PRN INH 10/18/16 21:00 11/17/16 20:59 Cefdinir (Cefdinir) 300 mg Q12 PO 10/20/16 21:00 10/23/16 20:59 Objective Vital Signs Date Time Temp Pulse Resp B/P Pulse Ox O2 Delivery O2 Flow Rate FiO2 10/20/16 16:00 Room Air 10/20/16 11:36 36.3 60 14 135/78 93 Room Air 10/20/16 11:02 94 Room Air 10/20/16 09:23 36.3 60 14 93 Room Air 10/20/16 08:05 36.4 56 14 162/88 94 Room Air 10/20/16 08:00 94 Room Air 10/20/16 00:00 Room Air Physical Exam General Appearance: WD/WN, no apparent distress Eyes: normal inspection, sclerae normal ENT: normal ENT inspection, pharynx normal Neck: supple, no adenopathy, trachea midline Respiratory/Chest: lungs clear, normal breath sounds, no respiratory distress Cardiovascular: regular rate, rhythm, no gallop, no murmur Abdomen: normal bowel sounds, non tender, soft, no organomegaly Extremities: non-tender, no calf tenderness Neurologic/Psychiatric: alert Skin: normal color, warm/dry, no rash Lymphatic: no adenopathy Laboratory Results Last 24 Hours Test 10/19/16 20:34 10/20/16 07:28 10/20/16 08:48 10/20/16 11:05 Bedside Glucose 100 mg/dl 96 mg/dl 170 mg/dl Prothrombin Time 27.1 SECONDS Prothromb Time International Ratio 2.4 Test 10/20/16 17:00 Bedside Glucose 106 mg/dl Assessment and Plan 76-year-old male with history of neurogenic bladder and recurrent urinary tract infections with encephalopathy, status post recent hospitalization for sigmoid volvulus requiring resection, now presents with 1 day history of acute change in mental status and abnormal urinalysis, consistent with prior episodes of sepsis with urinary tract infection and encephalopathy. Urine culture is negative, sputum growing MRSA, now on ceftaroline. Appears slightly improved. He will be transitioned to oral antibiotics to allow outpatient therapy as discussed with hospitalist service.
[2016-10-20 20:17] VITALS: BP 126/75; PULSE 62; TEMP 36.5; O2SAT 93
[2016-10-20] MEDS: CEFDINIR 300 MG CAP PO SCH ×2 (21:00→21:13)
--- NOTE | 2016-10-21 12:40 | EDITING REQUIRED CODING QUERY ---
CODING QUERY To promote full compliance with coding requirements relating to patient care, provider participation is requested in all cases of surgical coder uncertainty. Please assist us with the question(s) below: Coding Question(s): Paraplegic patient admitted to Hospital with possible UTI/- All blood cultures and Urine culture was negative. Patient had metabolic encephalopathy on admission- Sputum MRSA positive. IV antibiotic changed to oral med on discharge. Please document , if known or suspected, the cause for the metabolic encephalopathy. Progress notes mention a possible infectious origin. Thanks for your help! Agustin Cornelius [facility] PHYSICIAN RESPONSE: Suspected pneumonia given positive sputum culture. Principal Diagnosis: "_that condition established after study, to be chiefly responsible for occasioning the admission of the patient to the hospital for care." Co-Existing Principal Diagnosis: "_when two or more diagnoses equally meet the criteria for principal diagnosis as determined by the circumstances of admission, diagnostic work up, and/or therapy provided, and the Alphabetic Index, Tabular List, or another coding guideline does not provide sequencing direction, any one of the diagnoses may be sequenced first." "When the physician has documented what appears to be a current diagnosis in the body of the record, but has not included the diagnosis in the final diagnostic statement, the physician should be asked whether the diagnosis should be added." (Source Coding Clinic 2 QTR90. p3-4)
[2016-12-07] MEDS ORDERED: LCTX PO (13:51)
[2016-12-07] MEDS ORDERED: LVQ750 PO (13:51)
[2016-12-07] MEDS ORDERED: LORA-741 PO (13:53)
[2016-12-07] MEDS ORDERED: OXYC-609 PO (13:53)
[2017-04-11] MEDS ORDERED: AMLO-110 PO (05:24)
[2017-04-11] MEDS ORDERED: ASPI81TA28 PO (11:00)
[2017-04-11] MEDS ORDERED: METO2.5T PO (15:20)
[2017-04-11] MEDS ORDERED: POTA-74 PO (15:30)
[2017-04-11] MEDS ORDERED: POLY99.0 OPB (15:45)
[2017-04-11] MEDS ORDERED: SOTA80TA PO (16:09)
[2017-04-11] MEDS ORDERED: SENN-83 PO (16:40)
[2017-04-11] MEDS ORDERED: FERR325T5 PO (17:08)
[2017-04-11] MEDS ORDERED: LCTX PO (17:09)
[2017-04-11] MEDS ORDERED: FRS/40 PO (17:09)
[2017-04-11] MEDS ORDERED: TRAM-10 PO ×2 (17:33)
[2017-04-11] MEDS ORDERED: MOML PO (17:33)
[2017-04-11] MEDS ORDERED: NYSCR30 TOP (17:33)
[2017-04-11] MEDS ORDERED: BISA-16 PO (17:33)
[2017-04-11] MEDS ORDERED: LYR100 PO (17:33)
[2017-04-11] MEDS ORDERED: CMD25 PO (17:43)
[2017-04-16] MEDS ORDERED: CEFE2INJ2 IV ×2 (14:58→15:00)
[2017-04-16] MEDS ORDERED: VNCE1000 IV (15:03)
== END 2016-10-20 21:20 | DRG 193 ==
LOC: CANRESERV → ENRESERVTM → ENRESERVDT → EDBD 09:01 → C.EDB 09:03 → C.2E 12:38 → EDBEDREQSVC 12:44 → EDBEDREQ 12:44 → EDBEDREQTM 12:46 → C.MED 10-15 15:40
PROVIDERS: ADMIT Internal Medicine; ATTEND Internal Medicine
DX: J18.9 Pneumonia, unspecified organism (principal); N17.9 Acute kidney failure, unspecified; G93.41 Metabolic encephalopathy; J96.11 Chronic respiratory failure with hypoxia; G82.20 Paraplegia, unspecified; I48.2 Chronic atrial fibrillation; I25.10 Atherosclerotic heart disease of native coronary artery without angina pectoris; I25.2 Old myocardial infarction; E86.0 Dehydration; N31.9 Neuromuscular dysfunction of bladder, unspecified; Z87.440 Personal history of urinary (tract) infections; Z96.649 Presence of unspecified artificial hip joint; Z87.891 Personal history of nicotine dependence; N18.3 Chronic kidney disease, stage 3 (moderate); I12.9 Hypertensive chronic kidney disease with stage 1 through stage 4 chronic kidney disease, or unspecified chronic kidney disease; E11.21 Type 2 diabetes mellitus with diabetic nephropathy; Z93.3 Colostomy status

== ENCOUNTER 2016-12-04 09:58 | Inpatient (IN) | payer OTHER, MEDICARE ==
[~2016-12-04] VITALS: Ht 177.8 cm; Wt 110.0 kg
[~2016-12-04 09:58] MED LIST changes: -WARF4TAB8 PO
[2016-12-04] MEDS ORDERED: MoRPHine SULFATE 10 MG/ML CARP/VIAL IM STA (10:33)
[2016-12-04] MEDS ORDERED: KETOROLAC TROMETHAMINE 60 MG/2 ML VIAL IM STA (10:33)
[2016-12-04] MEDS ORDERED: LYR50 PO (11:00)
[2016-12-04] MEDS ORDERED: CMD3 PO (11:00)
[2016-12-04] MEDS ORDERED: LORA-741 PO (11:00)
[2016-12-04] MEDS ORDERED: ACET325T96 PO (11:00)
[2016-12-04] MEDS ORDERED: WARF3TAB PO (11:00)
[2016-12-04 11:02] LABS: BASO % 0.2 %; BASO ABS # 0.01 K/uL (0-0.2); COMPLETE YES; EOS % 1.1 %; HEMATOCRIT 35.9 % (42-52); IG% 1.5 %; LYMPH % 15.3 %; LYMPH ABS # 1.01 K/uL (1.2-3.4); MEAN CELL VOLUME 83.7 fL (80-100); MEAN CORPUSCULAR HEMOGLOBIN 25.6 pg (25-34); MEAN CORPUSCULAR HGB CONC 30.6 g/dl (32-36); MEAN PLATELET VOLUME 9.8 fL (7.4-10.4); MONO % 12.4 %; NEUT % 69.5 %; PLATELET COUNT 217 K/uL (130-400); RED BLOOD COUNT 4.29 M/uL (4.7-6.1); WHITE BLOOD COUNT 6.62 K/uL (4.8-10.8)
[2016-12-04 11:11] LABS: INR 1.6 (0.9-1.1); PROTHROMBIN TIME (PATIENT) 17.4 SECONDS (9.0-12.0)
[2016-12-04 11:18] LABS: BUN/CREATININE RATIO 15.5 (10-20); CALCIUM 8.3 mg/dl (8.5-10.1); CREATININE 1.2 mg/dl (0.60-1.40); MAGNESIUM 2.3 mg/dl (1.8-2.4); POTASSIUM 3.6 mmol/L (3.5-5.1)
[2016-12-04] MEDS ORDERED: PIPERACILLIN/TAZOBACTAM 4.5 GM/100ML D5W IV STA (11:22)
[2016-12-04] MEDS ORDERED: SODIUM CHLORIDE 0.9% 1000ML 1,000 ML IV STA (11:22)
[2016-12-04 11:23] LABS: CKMB/CK RATIO 1.1 (0-3.0)
[2016-12-04 11:39] LABS: ISTAT CREATININE 1.2 mg/dl (0.6-1.3); ISTAT HEMOGLOBIN 11.9 g/dl (14.0-18.0); ISTAT IONIZED CALCIUM 0.91 mmol/l (1.12-1.32)
[2016-12-04 12:47] LABS: URINE APPEARANCE CLOUDY (CLEAR); URINE BILIRUBIN NEG (NEG); URINE COLOR YELLOW; URINE EPITHELIAL CELL AUTO 20-30 /lpf (0-5); URINE NITRITE NEG (NEG); URINE PH 5.5 (4.5-7.5); URINE SPECIFIC GRAVITY 1.014 (1.000-1.030); UROBILINOGEN NEG (NEG); ZZURINE CULT IF INDIC CATH YES
[2016-12-04 13:13] LABS: MANUAL MICROSCOPIC REQUIRED? NO; REVIEW REQ? YES
--- NOTE | 2016-12-04 13:18 | DIAGNOSTIC IMAGING REPORT ---
PA CHEST RADIOGRAPH AND UPRIGHT AND SUPINE AP RADIOGRAPHS OF THE ABDOMEN CLINICAL HISTORY: Fever. Ostomy. COMPARISON STUDY: Chest radiograph and CT of the abdomen and pelvis October 12, 2016. FINDINGS: Lung volumes are diminished. This is unchanged. Mild bibasilar opacities favor atelectasis. There is no evidence of pulmonary edema. There is severe arthritis of both glenohumeral joints. Deformity of the right hip is noted. Hardware within the proximal left femur is partially imaged. An ostomy is noted projecting over the left lower quadrant. The bowel gas pattern is normal. There is no evidence for free air. IMPRESSION: 1. No free air or evidence of bowel obstruction. 2. Diminished lung volumes with suspected bibasilar atelectasis. Electronically signed by: Chad Mcintyre M.D. 12/04/2016 1:16 PM Dictated Date/Time: 12/04/2016 1:13 PM
[2016-12-04] MEDS ORDERED: CEFEPIME IV 1,000 MG in DEXTROSE 5% 100ML 100 ML IV STA (13:26)
[2016-12-04] MEDS ORDERED: PIPERACILL/TAZOBAC CONSULT ACTIVE PRN (15:20)
[2016-12-04] MEDS ORDERED: VANCOMYCIN CONSULT ACTIVE PRN (15:26)
[2016-12-04] MEDS ORDERED: DEXTROSE 50% 50 ML SYR IV PRN (15:45)
[2016-12-04] MEDS ORDERED: GLUCOSE 40% GEL 15 GM TUBE PO PRN (15:45)
[2016-12-04] MEDS ORDERED: GLUCOSE 10 TABS/TUBE PO PRN (15:45)
[2016-12-04] MEDS ORDERED: GLUCAGON FOR INJ 1 MG VIAL SQ PRN (15:45)
--- NOTE | 2016-12-04 15:54 | History and Physical ---
History & Physical Date & Time of Service: December 04, 2016 at 14:56 Chief Complaint: Lethargic Primary Care Physician: Lilo Davis M.D. 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 Patient was recently admitted from October 12-2016 for metabolic encephalopathy due to infection, initially thought to have UTI and started on cefepime. Urine and blood cx were negative but sputum cx grew MRSA. Abx changed to ceftaroline. Patient was seen by ID last admission. Mental status was back to baseline by discharge (oriented x 3). Ten days ago patient was treated with Augmentin for LLE cellulitis. Per [facility] provider notes erythema returned to baseline w / chronic dermatitis bilat LE's. [facility] patient spiked fever 101.8 last night with chills, worsening generalized abdominal pain, bloating. Fever tx with Tylenol. This morning pt was lethargic and more confused than baseline. Pt was sent to ER for concern for sepsis and/or colonic obstruction. Pt reports feeling tired currently. Denies chest pain or abdominal pain. Cannot obtain more hx due to lethargy and confusion. I spoke to pt's cousin Darius on the phone who was in the ER w/ the patient earlier today- he said presentation is similar to prior infections. 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 (13) Warfarin anticoagulation Status: Chronic Surgical Problems: (1) H/O inguinal hernia repair Status: Chronic (2) H/O resection of large bowel Permanent Comment: colostomy Status: Chronic (3) H/O sinus surgery Status: Chronic (4) Status post hip hemiarthroplasty Permanent Comment: right Status: Chronic (5) Status post removal right hip prosthesis Status: Chronic (6) Status post total knee replacement Permanent Comment: BL, with revision of left Status: Chronic Family History Cerebral aneurysm BROTHER Colon cancer SISTER Diabetes mellitus MOTHER Heart disease FATHER MOTHER Hypertension FATHER Prostate cancer FATHER Stroke FATHER Social History Smoking Status: Unknown if Ever Smoked Drug Use: none Marital Status: single Housing status: [facility] Occupational Status: retired Immunizations History of Influenza Vaccine: Yes Influenza Vaccine Date: Apr 01, 2014 History of Tetanus Vaccine?: Yes Tetanus Immunization Date: May 13, 1996 History of Pneumococcal: Yes Pneumococcal Date: Jun 26, 2010 History of Hepatitis B Vaccine: No Multi-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, MRSA Allergies Coded Allergies: Latex (Verified Allergy, Mild, UNSURE - FROM [facility], 12/04/16) Macrolides and Ketolides (Verified Allergy, Unknown, UNKN, 12/04/16) Azithromycin (Verified Adverse Reaction, Mild, nausea, 12/04/16) with nausea and diarrhea Home Medications Scheduled Acetaminophen (Tylenol), 500 MG PO TID Acetaminophen Tab (Tylenol), 650 MG PO Q4H Amitriptyline HCl (Amitriptyline HCl), 10 MG PO BID Amlodipine (Norvasc), 5 MG PO DAILY Aspirin (Aspirin Ec), 81 MG PO DAILY Baclofen (Baclofen), 20 MG PO TID Diclofenac Sodium (Topical) (Diclofenac Sodium), 1 APPLN TOP TID Duloxetine HCl (Duloxetine HCl), 60 MG PO QAM Ferrous Sulfate (Ferrous Sulfate), 325 MG PO BIDM Furosemide (Lasix), 20 MG PO QAM Metformin Hcl (Glucophage), 1,000 MG PO BIDM Metolazone (Zaroxolyn), 2.5 MG PO 2XWK Pantoprazole Sodium (Protonix), 40 MG PO BID Polyvinyl Alcohol (Artificial Tears), 2 DROPS OPB UD Potassium Chloride (Potassium Chloride Er), 20 MEQ PO TID Pregabalin (Lyrica), 75 MG PO HS Pregabalin (Lyrica), 50 MG PO QAM Rosuvastatin Calcium (Crestor), 10 MG PO DAILY Saline (Deep Sea Nasal [place]), 2 SPRAYS SABRINA UD Sennosides-Docusate Sodium ([place]-S), 2 TABS PO BID Simethicone (Gas Relief Extra Strength), 125 MG PO TID Sotalol Hcl (Sotalol Hcl), 80 MG PO BID Warfarin Sod (Coumadin), 1.5 MG PO 2XWK Warfarin Sodium (Coumadin), 3 MG PO 5XWK Scheduled PRN Ipratropium-Albuterol (Duoneb), 1 TREATMENT INH Q6H PRN for SOB/Wheezing Lorazepam (Ativan), 0.5 MG PO Q8H PRN for Anxiety/Agitation Magnesium Hydroxide (Milk Of Magnesia), 30 ML PO UD PRN for Constipation Oxycodone HCl (Oxycodone HCl), 5 MG PO Q4H PRN for Moderate to Severe Pain Oxygen (Oxygen), 2 LITERS NA UD PRN for Shortness of Breath Saline (Deep Sea Nasal [place]), 2 SPRAYS SABRINA Q4H PRN for DRYNESS Sodium Phosphate/Biphosphate (Fleet Enema), 1 EA SC UD PRN for Constipation Review of Systems Unable to obtain ROS due to patient's mental status. Physical Exam Vital Signs Date Time Temp Pulse Resp B/P Pulse Ox O2 Delivery O2 Flow Rate FiO2 12/04/16 13:21 72 16 143/88 96 Nasal Cannula 3.0 12/04/16 13:15 69 12/04/16 11:46 66 16 124/78 94 Nasal Cannula 3.0 12/04/16 11:02 36.9 12/04/16 10:07 70 12/04/16 10:04 93 Nasal Cannula 4.0 12/04/16 10:04 36.9 70 18 135/94 93 Nasal Cannula 4.0 General Appearance: + obese, + pertinent finding (alert acutely ill 76 year old male, diaphoretic, lethargic, awakens to verbal stimulation but falls asleep during questioning, confused) Head: normocephalic, atraumatic Eyes: normal inspection, PERRL, EOMI ENT: hearing grossly normal, pharynx normal Neck: supple, trachea midline Respiratory/Chest: lungs clear, no respiratory distress, no accessory muscle use, + decreased breath sounds, + pertinent finding (saturating well on 3 liters NC) Cardiovascular: regular rate, rhythm, no murmur, normal peripheral pulses Abdomen/GI: normal bowel sounds, non tender, soft, + pertinent finding (mildly distended but soft, colostomy with green liquid stool, stoma appears viable) Extremities/Musculoskelatal: no pedal edema Neurologic/Psych: + pertinent finding (lethargic, awaknens to verbal stimulation briefly but falls asleep during exam, confused, identifies he is in the hospital, but unable to state his name or birthday. follows commands. no dysarthria or facial droop. upper extremity 5/5 bilat. 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 ) Skin: warm/dry, + pertinent finding (erythema and warmth L > R lower leg- unchanged from baseline chronic dermatitis per PA-C at [facility]'s note today CLAIM REP. multiple exchars on bilateral LE. no open wound or drainage.) Diagnostics Laboratory Results Results Past 24 Hours Test 12/04/16 10:10 12/04/16 11:22 12/04/16 11:26 12/04/16 12:15 Range/Units White Blood Count 6.62 4.8-10.8 K/uL Red Blood Count 4.29 4.7-6.1 M/uL Hemoglobin 11.0 14.0-18.0 g/dL Hematocrit 35.9 42-52 % Mean Corpuscular Volume 83.7 80-100 fL Mean Corpuscular Hemoglobin 25.6 25-34 pg Mean Corpuscular Hemoglobin Concent 30.6 32-36 g/dl Platelet Count 217 130-400 K/uL Mean Platelet Volume 9.8 7.4-10.4 fL Neutrophils (%) (Auto) 69.5 % Lymphocytes (%) (Auto) 15.3 % Monocytes (%) (Auto) 12.4 % Eosinophils (%) (Auto) 1.1 % Basophils (%) (Auto) 0.2 % Neutrophils # (Auto) 4.61 1.4-6.5 K/uL Lymphocytes # (Auto) 1.01 1.2-3.4 K/uL Monocytes # (Auto) 0.82 0.11-0.59 K/uL Eosinophils # (Auto) 0.07 0-0.5 K/uL Basophils # (Auto) 0.01 0-0.2 K/uL RDW Standard Deviation 56.6 36.4-46.3 fL RDW Coefficient of Variation 18.4 11.5-14.5 % Immature Granulocyte % (Auto) 1.5 % Immature Granulocyte # (Auto) 0.10 0.00-0.02 K/uL Prothrombin Time 17.4 9.0-12.0 SECONDS Prothromb Time International Ratio 1.6 0.9-1.1 Sodium Level 135 136-145 mmol/L Potassium Level 3.6 3.5-5.1 mmol/L Chloride Level 97 98-107 mmol/L Carbon Dioxide Level 32 21-32 mmol/L Anion Gap 6.0 17.0 16-25 mmol/L Blood Urea Nitrogen 19 7-18 mg/dl Creatinine 1.20 0.60-1.40 mg/dl Est Creatinine Clear Calc Drug Dose 66.0 ml/min Estimated GFR () 68.6 Estimated GFR (Non- 59.2 BUN/Creatinine Ratio 15.5 10-20 Random Glucose 130 70-99 mg/dl Calcium Level 8.3 8.5-10.1 mg/dl Magnesium Level 2.3 1.8-2.4 mg/dl Total Bilirubin 0.2 0.2-1 mg/dl Direct Bilirubin 0.1 0-0.2 mg/dl Aspartate Amino Transf (AST/SGOT) 34 15-37 U/L Alanine Aminotransferase (ALT/SGPT) 37 12-78 U/L Alkaline Phosphatase 126 45-117 U/L Total Creatine Kinase 62 39-308 U/L Creatine Kinase MB 0.7 0.5-3.6 ng/ml Creatine Kinase MB Ratio 1.1 0-3.0 Troponin I 0.020 0-0.045 ng/ml Total Protein 7.8 6.4-8.2 gm/dl Albumin 2.9 3.4-5.0 gm/dl Bedside Lactic Acid Venous 1.80 0.90-1.70 mmol/L Bedside Hemoglobin 11.9 14.0-18.0 g/dl Bedside Hematocrit 35 42-52 % Bedside Sodium 134 135-144 mEq/L Bedside Potassium 3.6 3.3-5.0 mEq/L Bedside Chloride 96 101-112 mEq/L Bedside Total CO2 25 24-31 mEq/l Bedside Blood Urea Nitrogen 18 7-18 mg/dl Bedside Creatinine 1.2 0.6-1.3 mg/dl Bedside Glucose (other) 137 70-99 mg/dl Bedside Ionized Calcium (Yoko) 0.91 1.12-1.32 mmol/l Urine Color YELLOW Urine Appearance CLOUDY CLEAR Urine pH 5.5 4.5-7.5 Urine Specific [place] 1.014 1.000-1.030 Urine Protein TRACE NEG Urine Glucose (UA) NEG NEG Urine Ketones NEG NEG Urine Occult Blood 3+ NEG Urine Nitrite NEG NEG Urine Bilirubin NEG NEG Urine Urobilinogen NEG NEG Urine Leukocyte Esterase LARGE NEG Urine WBC (Auto) >30 0-5 /hpf Urine RBC (Auto) 5-10 0-4 /hpf Urine Hyaline Casts (Auto) 5-10 0-5 /lpf Urine Epithelial Cells (Auto) 20-30 0-5 /lpf Urine Bacteria (Auto) 1+ NEG Microbiology Results 12/04/16 Blood Culture, Received Pending 12/04/16 Blood Culture, Received Pending 12/04/16 Urine Culture, Received Pending Diagnostic Radiology PA CHEST RADIOGRAPH AND UPRIGHT AND SUPINE AP RADIOGRAPHS OF THE ABDOMEN CLINICAL HISTORY: Fever. Ostomy. COMPARISON STUDY: Chest radiograph and CT of the abdomen and pelvis October 12, 2016. FINDINGS: Lung volumes are diminished. This is unchanged. Mild bibasilar opacities favor atelectasis. There is no evidence of pulmonary edema. There is severe arthritis of both glenohumeral joints. Deformity of the right hip is noted. Hardware within the proximal left femur is partially imaged. An ostomy is noted projecting over the left lower quadrant. The bowel gas pattern is normal. There is no evidence for free air. IMPRESSION: 1. No free air or evidence of bowel obstruction. 2. Diminished lung volumes with suspected bibasilar atelectasis. EKG NSR, LVH with repolarization abnormality, when compared to prior EKG nonspecific T wave abnormality, improved in Inferior leads, T wave inversion less evident in Anterior leads, T wave inversion more evident in Lateral leads, as per cardiology interpretation Impression Assessment and Plan ALTERED MENTAL STATUS Probable metabolic encephalopathy due to recurrent UTI in pt with chronic indwelling Kohli catheter; hx recurrent presentations for the same; no focal deficit on exam Prior urine cx grew pseudomonas and resistant E. coli Recent admission for metabolic encephalopathy from infection- grew MRSA on sputum cx in 10/2016- treated with ceftaroline -> cefdinir Recently tx for LLE cellulitis with Augmentin- bilat LE back to baseline per PAGlendy C at [facility]'s note today Reported fever of 101.8 yesterday, currently afebrile, no leukocytosis, no tachycardia or hypotension, lactic acid WNL; no apparent sepsis UA- large leuk esterase, WBC >30, epithelial cells 20-30, bacteria 1+ Chest/ abd x-ray shows lung volumes diminished, mild bibasilar opacities which favor atelectasis, no free air or evidence of bowel obstruction Blood cx and urine cx pending; will check sputum cx Treated with Zosyn, cefepime, and 1 liter IVFs in ER Will change abx to Zosyn and vancomycin (due to hx MRSA) Consult infectious disease NPO until more alert CHRONIC RESPIRATORY FAILURE Usually on PRN O2 per prior hospitalization notes Currently requiring 3 liters NC May be hypoventilating due to lethargy CXR with bibasilar opacities favoring atelectasis Check sputum culture Incentive spirometry once awake Continue supplemental O2 per protocol CKD STAGE III Creat is at baseline Received 1 liter NSS in ER Monitor renal function Avoid nephrotoxins SIGMOID COLECTOMY FOR SIGMOID VOLVULUS Colostomy putting out green liquid stool No evidence obstruction on x-ray PAF Currently in sinus rhythm rate controlled; continue sotalol once awake INR subtherapeutic at 1.6 Continue Coumadin once awake enough to take PO SQ heparin until INR therapeutic Monitor INR DIASTOLIC CHF Prior echo EF 60-65% Appears mildly dry Received IVF's 1 liter in ER Hold Lasix for now Monitor volume status DM 2 Recent A1C 7.5 in 09/2016 Hold oral antidiabetic meds Insulin sliding scale coverage HYPERTENSION Stable; continue amlodipine and sotalol once more awake CAD Stable; continue aspirin, statin, beta homer once more awake DVT PROPHYLAXIS Continue Coumadin once more awake Heparin SQ until INR therapeutic CODE STATUS DNR per discussion with WALLACE Gould (cousin) via phone call ([phone] ) DISPOSITION Resides at [facility] Patient seen in collaboration with Dr. David. Please see his addendum. Attending Addendum Pt was seen and examined. Agreed with Francisca Rothman, assessment and plan. 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 Pt was admitted few months ago with similar symptoms that was due to urinary infection. Pt denies any chest pain, palpitation and dizziness. General- obese, I saw the pt after a few hours he was awake Head- atraumatic Eyes- PERRL, EOMI ENT- oropharynx clear Neck- supple, no JVD Lungs- Coarse breath sound Heart- regular rhythm, no murmur Abdomen- normal bowel sounds, soft Extremities- no calf tenderness, erythema in LLE Neuro- alert, oriented (with time, place and person ) PERRL, EOMI; no facial palsy; Skin- warm & dry A/P ALTERED MENTAL STATUS Possible related to infection due to UTI Hx of chronic indwelling kohli catheter with recurrent UTI CXR showed diminished lung volumes with suspected bibasilar atelectasis. POC lactic acid slightly elevated, no leukocytosis Received Zosyn and cefepime in ER Blood cx and urine cx pending will check repeat lactic acid and check procalcitoni Will change abx to IV Vanco an Zosyn Will consult ID Will continue monitor closely Lab, EKG and Imaging reviewed Please refer to Francisca NOYOLA documentation for other problems. Heather David MD VTE Prophylaxis VTE Risk Assessment Done? Y/N: Yes Risk Level: Moderate Given or contraindicated: Warfarin (Coumadin)
[2016-12-04] MEDS ORDERED: VANCOMYCIN INJ 2,500 MG in SODIUM CHLORIDE 0.9% 500ML 500 ML IV SCH (16:00)
[2016-12-04] MEDS: INSULIN ASPART 100 UNITS/ML 3 ML PEN SC SCH ×3 (16:00→20:47)
--- NOTE | 2016-12-04 16:15 | Pharmacy Progress Note ---
Pharmacy Abx Initial Consult Date of Service December 04, 2016. Pharmacy Dosing Scope Date of Consult: 12/04/16 Consultation requested by: Dr. Davida Mcgill [facility] Pharmacy is consulted to initiate Vancomycin IV dosing therapy, order appropriate labs and adjust drug dose/frequency for UTI/Cellulitis/history of MRSA positive sputum culture. Subjective The patient is a 76 year old male admitted on 12/04/16. Objective Height (Feet): 5 Height (Inches): 9.00 Weight (Kilograms): 110.000 Vital Signs (Past 12Hrs) Vital Signs Past 12 Hours Date Time Temp Pulse Resp B/P Pulse Ox O2 Delivery O2 Flow Rate FiO2 12/04/16 15:53 73 16 125/89 94 Nasal Cannula 3.0 12/04/16 15:24 70 18 145/82 95 Nasal Cannula 3.0 12/04/16 13:21 72 16 143/88 96 Nasal Cannula 3.0 12/04/16 13:15 69 12/04/16 11:46 66 16 124/78 94 Nasal Cannula 3.0 12/04/16 11:02 36.9 12/04/16 10:07 70 12/04/16 10:04 93 Nasal Cannula 4.0 12/04/16 10:04 36.9 70 18 135/94 93 Nasal Cannula 4.0 Lab Results (24Hrs) Test 12/04/16 10:10 12/04/16 11:22 12/04/16 11:26 12/04/16 12:15 White Blood Count 6.62 K/uL (4.8-10.8) Red Blood Count 4.29 M/uL (4.7-6.1) Hemoglobin 11.0 g/dL (14.0-18.0) Hematocrit 35.9 % (42-52) Mean Corpuscular Volume 83.7 fL (80-100) Mean Corpuscular Hemoglobin 25.6 pg (25-34) Mean Corpuscular Hemoglobin Concent 30.6 g/dl (32-36) Platelet Count 217 K/uL (130-400) Mean Platelet Volume 9.8 fL (7.4-10.4) Neutrophils (%) (Auto) 69.5 % Lymphocytes (%) (Auto) 15.3 % Monocytes (%) (Auto) 12.4 % Eosinophils (%) (Auto) 1.1 % Basophils (%) (Auto) 0.2 % Neutrophils # (Auto) 4.61 K/uL (1.4-6.5) Lymphocytes # (Auto) 1.01 K/uL (1.2-3.4) Monocytes # (Auto) 0.82 K/uL (0.11-0.59) Eosinophils # (Auto) 0.07 K/uL (0-0.5) Basophils # (Auto) 0.01 K/uL (0-0.2) RDW Standard Deviation 56.6 fL (36.4-46.3) RDW Coefficient of Variation 18.4 % (11.5-14.5) Immature Granulocyte % (Auto) 1.5 % Immature Granulocyte # (Auto) 0.10 K/uL (0.00-0.02) Prothrombin Time 17.4 SECONDS (9.0-12.0) Prothromb Time International Ratio 1.6 (0.9-1.1) Sodium Level 135 mmol/L (136-145) Potassium Level 3.6 mmol/L (3.5-5.1) Chloride Level 97 mmol/L (98-107) Carbon Dioxide Level 32 mmol/L (21-32) Anion Gap 6.0 mmol/L (3-11) 17.0 mmol/L (16-25) Blood Urea Nitrogen 19 mg/dl (7-18) Creatinine 1.20 mg/dl (0.60-1.40) Est Creatinine Clear Calc Drug Dose 66.0 ml/min Estimated GFR () 68.6 Estimated GFR (Non- 59.2 BUN/Creatinine Ratio 15.5 (10-20) Random Glucose 130 mg/dl (70-99) Calcium Level 8.3 mg/dl (8.5-10.1) Magnesium Level 2.3 mg/dl (1.8-2.4) Total Bilirubin 0.2 mg/dl (0.2-1) Direct Bilirubin 0.1 mg/dl (0-0.2) Aspartate Amino Transf (AST/SGOT) 34 U/L (15-37) Alanine Aminotransferase (ALT/SGPT) 37 U/L (12-78) Alkaline Phosphatase 126 U/L (45-117) Total Creatine Kinase 62 U/L (39-308) Creatine Kinase MB 0.7 ng/ml (0.5-3.6) Creatine Kinase MB Ratio 1.1 (0-3.0) Troponin I 0.020 ng/ml (0-0.045) Total Protein 7.8 gm/dl (6.4-8.2) Albumin 2.9 gm/dl (3.4-5.0) Bedside Lactic Acid Venous 1.80 mmol/L (0.90-1.70) Bedside Hemoglobin 11.9 g/dl (14.0-18.0) Bedside Hematocrit 35 % (42-52) Bedside Sodium 134 mEq/L (135-144) Bedside Potassium 3.6 mEq/L (3.3-5.0) Bedside Chloride 96 mEq/L (101-112) Bedside Total CO2 25 mEq/l (24-31) Bedside Blood Urea Nitrogen 18 mg/dl (7-18) Bedside Creatinine 1.2 mg/dl (0.6-1.3) Bedside Glucose (other) 137 mg/dl (70-99) Bedside Ionized Calcium (Yoko) 0.91 mmol/l (1.12-1.32) Urine Color YELLOW Urine Appearance CLOUDY (CLEAR) Urine pH 5.5 (4.5-7.5) Urine Specific [place] 1.014 (1.000-1.030) Urine Protein TRACE (NEG) Urine Glucose (UA) NEG (NEG) Urine Ketones NEG (NEG) Urine Occult Blood 3+ (NEG) Urine Nitrite NEG (NEG) Urine Bilirubin NEG (NEG) Urine Urobilinogen NEG (NEG) Urine Leukocyte Esterase LARGE (NEG) Urine WBC (Auto) >30 /hpf (0-5) Urine RBC (Auto) 5-10 /hpf (0-4) Urine Hyaline Casts (Auto) 5-10 /lpf (0-5) Urine Epithelial Cells (Auto) 20-30 /lpf (0-5) Urine Bacteria (Auto) 1+ (NEG) Micro Results Date/Time Source Procedure Growth Status 12/04/16 11:20 Blood Blood Culture Pending Received 12/04/16 10:10 Blood Blood Culture Pending Received 12/04/16 12:15 Urine,Catheterized Urine Culture Pending Received Risk Factors for Resistance * Resident in a detention or extended-care facility. * Hospitalization within the past 90 days (in October 2016). * History of infection with a multidrug-resistant organism: MRSA positive sputum culture, urine culture that grew resistant E coli. * Antimicrobial use within the last 90 days: Augmentin for Cellulitis recently. Assessment & Plan Assessment 76 year old male paraplegic possibly getting admitted today for UTI, Cellulitis and positive MRSA in sputum culture last month. Plan Vancomycin IV * Loading dose: 2500 mg (22.7 mg/kg) x1 dose. * Maintenance dose: Vancomycin 1200 mg IV (10.9 mg/kg) every 24 hours * Goal trough level for possible bacteremia : 15 to 20 mcg/mL * Trough level ordered for 12/07/16 before dose at 1000 am. Piperacillin/tazobactam * 4.5 g bolus administered over 30 minutes, then 3.375 g IV extended infusion every 8 hours for CrCl greater than 20 mL/min. Pharmacy will continue to follow and will adjust dose/frequency as necessary. Thank you.
--- NOTE | 2016-12-04 17:01 | EMERGENCY ROOM VISIT NOTE ---
History Report prepared by Victorino: Naty Cabrera Under the Supervision of: Tres CamachoO. First contact with patient: 10:19 Chief Complaint: LETHARGIC Stated Complaint: LETHARGIC Nursing Triage Summary: Staff reported patient being lethargic and febrile. Given tylenol this AM, dose unknown. Colostomy and indwelling catheter noted. History of Present Illness The patient is a 76 year old male who presents to the Emergency Room with complaints of constant lethargy beginning [employer]. The patient is a resident at [facility]. Per staff there he has been febrile and lethargic all day. He was given Tylenol for his fever. The patient denies any pain. He denies headache, chest pain, nausea, vomiting, and diarrhea. He was brought to the ED by ambulance. The history is limited due to the patient's AMS. Source of History: patient, [facility] notes History Limited By: AMS Onset: this morning Position: other (global) Quality: other (lethargy) Timing: constant Associated Symptoms: + fevers, No chest pain, No diarrhea, No headache, No nausea, No vomiting Review of Systems ROS is limited secondary to the patient's AMS. 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 (14) UTI (urinary tract infection) (15) UTI (urinary tract infection) (16) Warfarin anticoagulation Surgical Problems: (1) H/O inguinal hernia repair (2) H/O resection of large bowel (3) H/O sinus surgery (4) Status post hip hemiarthroplasty (5) Status post removal right hip prosthesis (6) Status post total knee replacement Family History Cerebral aneurysm BROTHER Colon cancer SISTER Diabetes mellitus MOTHER Heart disease FATHER MOTHER Hypertension FATHER Prostate cancer FATHER Stroke FATHER Social History Smoking Status: Unknown if Ever Smoked Alcohol Use: none Drug Use: none Marital Status: single Housing Status: lives alone, [facility] Occupation Status: retired Current/Historical Medications Scheduled Acetaminophen (Tylenol), 500 MG PO TID Acetaminophen Tab (Tylenol), 650 MG PO Q4H Amitriptyline HCl (Amitriptyline HCl), 10 MG PO BID Amlodipine (Norvasc), 5 MG PO DAILY Aspirin (Aspirin Ec), 81 MG PO DAILY Baclofen (Baclofen), 20 MG PO TID Diclofenac Sodium (Topical) (Diclofenac Sodium), 1 APPLN TOP TID Duloxetine HCl (Duloxetine HCl), 60 MG PO QAM Ferrous Sulfate (Ferrous Sulfate), 325 MG PO BIDM Furosemide (Lasix), 20 MG PO QAM Metformin Hcl (Glucophage), 1,000 MG PO BIDM Metolazone (Zaroxolyn), 2.5 MG PO 2XWK Pantoprazole Sodium (Protonix), 40 MG PO BID Polyvinyl Alcohol (Artificial Tears), 2 DROPS OPB UD Potassium Chloride (Potassium Chloride Er), 20 MEQ PO TID Pregabalin (Lyrica), 75 MG PO HS Pregabalin (Lyrica), 50 MG PO QAM Rosuvastatin Calcium (Crestor), 10 MG PO DAILY Saline (Deep Sea Nasal [place]), 2 SPRAYS SABRINA UD Sennosides-Docusate Sodium (Senexon-S), 2 TABS PO BID Simethicone (Gas Relief Extra Strength), 125 MG PO TID Sotalol Hcl (Sotalol Hcl), 80 MG PO BID Warfarin Sod (Coumadin), 1.5 MG PO 2XWK Warfarin Sodium (Coumadin), 3 MG PO 5XWK Scheduled PRN Ipratropium-Albuterol (Duoneb), 1 TREATMENT INH Q6H PRN for SOB/Wheezing Lorazepam (Ativan), 0.5 MG PO Q8H PRN for Anxiety/Agitation Magnesium Hydroxide (Milk Of Magnesia), 30 ML PO UD PRN for Constipation Oxycodone HCl (Oxycodone HCl), 5 MG PO Q4H PRN for Moderate to Severe Pain Oxygen (Oxygen), 2 LITERS NA UD PRN for Shortness of Breath Saline (Deep Sea Nasal [place]), 2 SPRAYS SABRINA Q4H PRN for DRYNESS Sodium Phosphate/Biphosphate (Fleet Enema), 1 EA AR UD PRN for Constipation Allergies Coded Allergies: Latex (Verified Allergy, Mild, UNSURE - FROM [facility], 12/04/16) Macrolides and Ketolides (Verified Allergy, Unknown, UNKN, 12/04/16) Azithromycin (Verified Adverse Reaction, Mild, nausea, 12/04/16) with nausea and diarrhea Physical Exam Vital Signs Date Time Temp Pulse Resp B/P Pulse Ox O2 Delivery O2 Flow Rate FiO2 12/04/16 13:21 72 16 143/88 96 Nasal Cannula 3.0 12/04/16 13:15 69 12/04/16 11:46 66 16 124/78 94 Nasal Cannula 3.0 12/04/16 11:02 36.9 12/04/16 10:07 70 12/04/16 10:04 93 Nasal Cannula 4.0 12/04/16 10:04 36.9 70 18 135/94 93 Nasal Cannula 4.0 Physical Exam GENERAL: ill appearing, laying in bed with NC in place, awakens to voice EYE EXAM: normal conjunctiva, PERRL and EOM's grossly intact OROPHARYNX: no exudate, no erythema, lips, buccal mucosa, and tongue normal and mucous membranes are dry NECK: supple, no nuchal rigidity, no adenopathy, non-tender LUNGS: Coarse breath sounds at the bilateral bases with poor air movement. 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 Ostomy in place in the LLQ with green colored liquid stool. BACK: Back is symmetrical on inspection and there is no deformity, no midline tenderness, no CVA tenderness. : Cantrell catheter in place. SKIN: no rashes and no bruising UPPER EXTREMITIES: upper extremities are grossly normal. LOWER EXTREMITIES: Does not move lower extremities to commands. NEURO EXAM: Awakens to voice, oriented to name but not place or year. Medical Decision & Procedures ER Provider Diagnostic Interpretation: Radiology results as stated below per my review and the radiologist's interpretation: PA CHEST RADIOGRAPH AND UPRIGHT AND SUPINE AP RADIOGRAPHS OF THE ABDOMEN CLINICAL HISTORY: Fever. Ostomy. COMPARISON STUDY: Chest radiograph and CT of the abdomen and pelvis October 12, 2016. FINDINGS: Lung volumes are diminished. This is unchanged. Mild bibasilar opacities favor atelectasis. There is no evidence of pulmonary edema. There is severe arthritis of both glenohumeral joints. Deformity of the right hip is noted. Hardware within the proximal left femur is partially imaged. An ostomy is noted projecting over the left lower quadrant. The bowel gas pattern is normal. There is no evidence for free air. IMPRESSION: 1. No free air or evidence of bowel obstruction. 2. Diminished lung volumes with suspected bibasilar atelectasis. Electronically signed by: Chad Mcintyre M.D. 12/04/2016 1:16 PM Dictated Date/Time: 12/04/2016 1:13 PM Laboratory Results 12/04/16 10:10 Red Blood Count 4.29, Mean Corpuscular Volume 83.7, Mean Corpuscular Hemoglobin 25.6, Mean Corpuscular Hemoglobin Concent 30.6, Mean Platelet Volume 9.8, Neutrophils (%) (Auto) 69.5, Lymphocytes (%) (Auto) 15.3, Monocytes (%) (Auto) 12.4, Eosinophils (%) (Auto) 1.1, Basophils (%) (Auto) 0.2, Neutrophils # (Auto ) 4.61, Lymphocytes # (Auto) 1.01, Monocytes # (Auto) 0.82, Eosinophils # (Auto ) 0.07, Basophils # (Auto) 0.01 12/04/16 10:10 Test 12/04/16 10:10 12/04/16 11:22 12/04/16 11:26 12/04/16 12:15 White Blood Count 6.62 K/uL (4.8-10.8) Red Blood Count 4.29 M/uL (4.7-6.1) Hemoglobin 11.0 g/dL (14.0-18.0) Hematocrit 35.9 % (42-52) Mean Corpuscular Volume 83.7 fL (80-100) Mean Corpuscular Hemoglobin 25.6 pg (25-34) Mean Corpuscular Hemoglobin Concent 30.6 g/dl (32-36) Platelet Count 217 K/uL (130-400) Mean Platelet Volume 9.8 fL (7.4-10.4) Neutrophils (%) (Auto) 69.5 % Lymphocytes (%) (Auto) 15.3 % Monocytes (%) (Auto) 12.4 % Eosinophils (%) (Auto) 1.1 % Basophils (%) (Auto) 0.2 % Neutrophils # (Auto) 4.61 K/uL (1.4-6.5) Lymphocytes # (Auto) 1.01 K/uL (1.2-3.4) Monocytes # (Auto) 0.82 K/uL (0.11-0.59) Eosinophils # (Auto) 0.07 K/uL (0-0.5) Basophils # (Auto) 0.01 K/uL (0-0.2) RDW Standard Deviation 56.6 fL (36.4-46.3) RDW Coefficient of Variation 18.4 % (11.5-14.5) Immature Granulocyte % (Auto) 1.5 % Immature Granulocyte # (Auto) 0.10 K/uL (0.00-0.02) Prothrombin Time 17.4 SECONDS (9.0-12.0) Prothromb Time International Ratio 1.6 (0.9-1.1) Est Creatinine Clear Calc Drug Dose 66.0 ml/min Estimated GFR () 68.6 Estimated GFR (Non- 59.2 BUN/Creatinine Ratio 15.5 (10-20) Calcium Level 8.3 mg/dl (8.5-10.1) Magnesium Level 2.3 mg/dl (1.8-2.4) Total Bilirubin 0.2 mg/dl (0.2-1) Direct Bilirubin 0.1 mg/dl (0-0.2) Aspartate Amino Transf (AST/SGOT) 34 U/L (15-37) Alanine Aminotransferase (ALT/SGPT) 37 U/L (12-78) Alkaline Phosphatase 126 U/L (45-117) Total Creatine Kinase 62 U/L (39-308) Creatine Kinase MB 0.7 ng/ml (0.5-3.6) Creatine Kinase MB Ratio 1.1 (0-3.0) Troponin I 0.020 ng/ml (0-0.045) Total Protein 7.8 gm/dl (6.4-8.2) Albumin 2.9 gm/dl (3.4-5.0) Bedside Lactic Acid Venous 1.80 mmol/L (0.90-1.70) Bedside Hemoglobin 11.9 g/dl (14.0-18.0) Bedside Hematocrit 35 % (42-52) Bedside Sodium 134 mEq/L (135-144) Bedside Potassium 3.6 mEq/L (3.3-5.0) Bedside Chloride 96 mEq/L (101-112) Bedside Total CO2 25 mEq/l (24-31) Anion Gap 17.0 mmol/L (16-25) Bedside Blood Urea Nitrogen 18 mg/dl (7-18) Bedside Creatinine 1.2 mg/dl (0.6-1.3) Bedside Glucose (other) 137 mg/dl (70-99) Bedside Ionized Calcium (Yoko) 0.91 mmol/l (1.12-1.32) Urine Color YELLOW Urine Appearance CLOUDY (CLEAR) Urine pH 5.5 (4.5-7.5) Urine Specific [place] 1.014 (1.000-1.030) Urine Protein TRACE (NEG) Urine Glucose (UA) NEG (NEG) Urine Ketones NEG (NEG) Urine Occult Blood 3+ (NEG) Urine Nitrite NEG (NEG) Urine Bilirubin NEG (NEG) Urine Urobilinogen NEG (NEG) Urine Leukocyte Esterase LARGE (NEG) Urine WBC (Auto) >30 /hpf (0-5) Urine RBC (Auto) 5-10 /hpf (0-4) Urine Hyaline Casts (Auto) 5-10 /lpf (0-5) Urine Epithelial Cells (Auto) 20-30 /lpf (0-5) Urine Bacteria (Auto) 1+ (NEG) Laboratory results per my review. Medications Administered Medications (Trade) Dose Ordered Sig/Betzy Route Start Time Stop Time Status Last Admin Dose Admin Piperacillin Sod/ Tazobactam Sod 4.5 gm 4.5 gm NOW STAT IV 12/04/16 11:22 12/04/16 11:23 DC 12/04/16 11:46 4.5 GM Sodium Chloride 1,000 ml @ 999 mls/hr Q1H1M STAT IV 12/04/16 11:22 12/04/16 12:22 DC 12/04/16 11:44 999 MLS/HR Cefepime HCl/ Dextrose (Maxipime IV/D5 100ml) 111.3 ml @ 200 mls/hr NOW STAT IV 12/04/16 13:26 12/04/16 13:59 DC 12/04/16 13:52 200 MLS/HR ECG Indication: altered mental status Rate (beats per minute): 70 Rhythm: normal sinus Findings: nonspecific-ST abn (Anterior and lateral), T-wave inversion ( Anterior and high lateral), left axis deviation Comparison ECG Date: 10/12/16 Change: High lateral t-waves are flipped. ED Course ED COURSE: Vital signs were reviewed and showed normal vitals. The patients medical record was reviewed The above diagnostic studies were performed and reviewed. ED treatments and interventions as stated above. 1025: The patient was evaluated in room B4B. A complete history and physical examination was performed. 1033: Morphine sulfate 6 mg IM, Toradol 30 mg IM 1105: At this time I spoke with a JAZMÍN at [facility]. We discussed the patient' s case. She states that he has been much more confused today. Normally he would know where he is and the year. His abdomen is not distended today. Normally the patient gets UTIs or cellulitis. He has had fevers of 101 since last night. 1122: NSS 1000 ml @ 999 mls/hr IV, Zosyn 4.5 gm IV 1326: Cefepime HCl 1000 mg/Dextrose 111.3 ml @ 200 mls/hr IV 1329: Upon reevaluation, the patient is resting comfortably. Based on the patients age, coexisting illnesses, exam and lab findings the decision to treat as an inpatient was made. The patient remained stable while under my care. The patient will be evaluated for further management. 1334: I spoke with Davida Mcgill PA-C. We discussed the patients results and treatment plan. The patient will be evaluated by the [facility] for further management. Medical Decision Differential diagnoses includes but is not limited to toxic, metabolic, infectious, traumatic, cardiac, neurologic, hematologic, psychiatric and inflammatory etiologies. Patient is a 76-year-old male who presents the ER for altered mental status from with the health fevers of 101 since last night. Previous review of urine cultures shows pseudomonas and E. Coli with a good amount of resistance, susceptible to Cefepime. Patient awakens to voice but is not oriented to person place or time and this isn't normal. The PA that takes care of him at the [facility]. Patient is very groggy. CBC along with BMP, LFTs and bilirubin was unremarkable. Troponin was detectable but is not positive. Lactate was elevated at 1.8. UA shows esterase, white cells and bacteria. He does have a chronic indwelling Cantrell. No signs of trauma. Sclerae CT head was not performed. X-ray of the abdomen and chest shows no obvious obstruction. Based on his presentation I do feel this consistent with a metabolic encephalopathy which I favor is likely secondary to his urine. He was given IV antibiotics and admitted to internal medicine. He was covered for his previous urine cultures. Consults Time Called: [phone] Consulting Physician: JAZMÍN at [facility] Returned Call: [phone] At this time I spoke with a JAZMÍN at [facility]. We discussed the patient's case. She states that he has been much more confused today. Normally he would know where he is and the year. His abdomen is not distended today. Normally the patient gets UTIs or cellulitis. He has had fevers of 101 since last night. Additional Consults: Time Called: 1331 Consulted Physician: Davida Mcgill PA-C Returned Call: [phone] Additional Comments: I spoke with Davida Mcgill PA-C. We discussed the patients results and treatment plan. [facility]. Impression Primary Impression: Metabolic encephalopathy Additional Impression: UTI (urinary tract infection) Scribe Attestation The scribe's documentation has been prepared under my direction and personally reviewed by me in its entirety. I confirm that the note above accurately reflects all work, treatment, procedures, and medical decision making performed by me. Departure Information Dispostion Being Evaluated By Hospitalist Referrals Lilo Davis M.D. (PCP) Patient Instructions My [facility] Problem Qualifiers Additional Impression: UTI (urinary tract infection) Urinary tract infection type: site unspecified Hematuria presence: with hematuria Qualified Codes: N39.0 - Urinary tract infection, site not specified ; R31.9 - Hematuria, unspecified
[2016-12-04 17:28] VITALS: BP 127/80; PULSE 75; TEMP 37.1; O2SAT 90
[2016-12-04 19:24] VITALS: BP 127/80; PULSE 75; TEMP 37.1; O2SAT 90; Ht 177.8 cm; Wt 110.0 kg
[2016-12-04] MEDS: PIPERACILL/TAZOBAC IV 3.375 GM in DEXTROSE 5% 100ML 100 ML IV SCH (20:35)
[2016-12-04] MEDS: HEPARIN SOD 5000 UNIT/0.5 ML CARP SQ SCH (20:42)
[2016-12-04 23:31] VITALS: BP 147/82; PULSE 87; TEMP 36.9; O2SAT 82
[2016-12-05] MEDS: ACETAMINOPHEN 325 MG TAB PO PRN ×5 (00:01→19:59)
[2016-12-05] MEDS: PIPERACILL/TAZOBAC IV 3.375 GM in DEXTROSE 5% 100ML 100 ML IV SCH ×3 (02:21→17:32)
--- NOTE | 2016-12-05 06:54 | Clinical Documentation Query ---
CLINICAL DOCUMENTATION QUERY , If the UTI is due to the chronic kohli catheter, it must be documented exactly as below for the coders to apply the appropriate ICD 10 code In your clinical opinion is this patient being managed for: ( + ) UTI due to chronic indwelling kohli catheter ( ) Other explanation of clinical findings (Please Explain) ( ) Unable to determine (Please Define) ( ) Need to Discuss ( ) Not Agree The medical record reflects the following clinical findings, treatment, and risk factors. Clinical Indicators: 76 yo male presenting with lethargy and fever. Reportedly fevers of 101 with chills at custodial the past 24 hours with confusion. Diagnosed with UTI. Treatment:kohil catheter changed in ER, IV zosyn, IV maxipime, IV vancomycin, ID consult, IV fluid bolus, pending UA cx Risk Factors: neurogenic bladder requiring chronic indwelling kohli catheter, recurrent UTI's Please clarify and document your clinical opinion in the progress notes and discharge summary. Terms such as "probable", "suspected", "likely", "questionable", "possible", or "still to be ruled out" are acceptable. IF IN AGREEMENT, YOU MUST DOCUMENT ABOVE DIAGNOSTIC STATEMENT IN DAILY PROGRESS NOTES AND DISCHARGE SUMMARY. This document is not part of the patient's record. Thank You, Lianne Stevenson RN [phone]
[2016-12-05] MEDS: HEPARIN SOD 5000 UNIT/0.5 ML CARP SQ SCH ×2 (07:22→21:22)
[2016-12-05 07:47] VITALS: BP 112/68; PULSE 73; TEMP 37.2; O2SAT 91
[2016-12-05 08:00] VITALS: O2SAT 91
[2016-12-05 08:07] LABS: HEMATOCRIT 34.7 % (42-52); MEAN CELL VOLUME 82.8 fL (80-100); MEAN CORPUSCULAR HEMOGLOBIN 25.1 pg (25-34); MEAN CORPUSCULAR HGB CONC 30.3 g/dl (32-36); MEAN PLATELET VOLUME 9.6 fL (7.4-10.4); PLATELET COUNT 201 K/uL (130-400); RED BLOOD COUNT 4.19 M/uL (4.7-6.1); WHITE BLOOD COUNT 5.54 K/uL (4.8-10.8)
[2016-12-05 08:14] LABS: INR 1.5 (0.9-1.1); PROTHROMBIN TIME (PATIENT) 16.8 SECONDS (9.0-12.0)
[2016-12-05] MEDS: INSULIN ASPART 100 UNITS/ML 3 ML PEN SC SCH ×4 (08:21→21:00)
[2016-12-05 08:34] LABS: BUN/CREATININE RATIO 14.6 (10-20); CREATININE 1.1 mg/dl (0.60-1.40); POTASSIUM 3.3 mmol/L (3.5-5.1)
[2016-12-05 09:04] LABS: CALCIUM 7.9 mg/dl (8.5-10.1)
[2016-12-05] MEDS: VANCOMYCIN INJ 1,200 MG in SODIUM CHLORIDE 0.9% 250ML 250 ML IV SCH (10:04)
--- NOTE | 2016-12-05 10:59 | Medical Consult ---
Consultation Date of Consultation: December 05, 2016. Attending Physician: Bertha Rodriguez M.D. Reason for Consultation: Recurrent UTI with encephalopathy History of Present Illness Patient is a 76 yo male with history of Diabetes, Recurrent UTI, indwelling Cantrell catheter due to neurogenic bladder following spinal tumor, and other chronic illnesses listed below who presented to the ED from [facility] with AMS. The patient has history of multiple different infection including most recently UTI's and sputum that grew MRSA during his last admission. He was treated with IV Ceftaroline at that time and ultimately improvement and was discharged back to SNF. Since current admission, the patient was placed on IV Zosyn and Vancomycin for concerns of pulmonary versus urinary infection. WBC count on admission was 6.62, and POC Lactic acid was slightly elevated at 1.8. Urine culture is growing Probable Pseudomonas species and blood cultures are pending. Chest/Abdomen X-ray showed diminished lung volumes with bibasilar atelectasis but no free air or bowel obstruction. Past Medical/Surgical History Medical Problems: (1) Abdominal pain Status: Acute (2) Altered mental status Status: Acute (3) Altered mental status Status: Acute (4) Altered mental status Status: Acute (5) Altered mental status Status: Acute (6) Diffuse abdominal pain Status: Acute (7) Dislodged Cantrell catheter Status: Acute (8) Fever Status: Acute (9) Hematuria Status: Acute (10) Hyperglycemia Status: Acute (11) Hypomagnesemia Status: Acute (12) Hypoxia Status: Acute (13) Hypoxia Status: Acute (14) Hypoxia Status: Acute (15) Lactic acid acidosis Status: Acute (16) Left lower lobe pneumonia Status: Acute (17) Leukocytosis Status: Acute (18) Metabolic encephalopathy Status: Acute (19) Pneumonia Status: Acute (20) Renal insufficiency Status: Acute (21) Sepsis Status: Acute (22) Sigmoid volvulus Status: Acute (23) Sigmoid volvulus Status: Acute (24) UTI (urinary tract infection) Status: Acute (25) UTI (urinary tract infection) Status: Acute (26) UTI (urinary tract infection) Status: Acute (27) UTI (urinary tract infection) Status: Acute (28) UTI (urinary tract infection) Status: Acute Medical Problems: (1) Altered mental status (2) Atrial fibrillation (3) Chronic indwelling Cantrell catheter (4) Coronary artery disease (5) Dyslipidemia (6) History of myocardial infarction (7) Hypertension (8) Lumbar discitis (9) Neurogenic bladder (10) Osteoarthritis (11) Paraplegia (12) Pulmonary nodule (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 (14) UTI (urinary tract infection) (15) UTI (urinary tract infection) (16) Warfarin anticoagulation Surgical Problems: (1) H/O inguinal hernia repair (2) H/O resection of large bowel (3) H/O sinus surgery (4) Status post hip hemiarthroplasty (5) Status post removal right hip prosthesis (6) Status post total knee replacement Family History Cerebral aneurysm BROTHER Colon cancer SISTER Diabetes mellitus MOTHER Heart disease FATHER MOTHER Hypertension FATHER Prostate cancer FATHER Stroke FATHER Noncontributory Social History Smoking Status: Unknown if Ever Smoked Drug Use: none Marital Status: single Housing Status: lives alone, jail Occupation Status: retired Allergies Coded Allergies: Latex (Verified Allergy, Mild, UNSURE - FROM [facility], 12/04/16) Macrolides and Ketolides (Verified Allergy, Unknown, [facility], 12/04/16) Azithromycin (Verified Adverse Reaction, Mild, nausea, 12/04/16) with nausea and diarrhea Home Medications Reported Home Medications Medications Dose Route/Sig Max Daily Dose Days Date Category Dose Instructions Aspirin Ec (Aspirin) 81 Mg Tab 81 Mg PO DAILY 12/04/16 Reported Tylenol (Acetaminophen) 325 Mg Tab 650 Mg PO Q4H 12/04/16 Reported Coumadin (Warfarin Sodium) 3 Mg Tab 3 Mg PO 5XWK 12/04/16 Reported SUN,TUE,THU,THUR.SAT Coumadin (Warfarin Sod) 3 Mg Tab 1.5 Mg PO 2XWK 12/04/16 Reported ON MON&THU Ativan (Lorazepam) 0.5 Mg Tab 0.5 Mg PO Q8H PRN 12/04/16 Reported Lyrica (Pregabalin) 50 Mg Cap 50 Mg PO QAM 12/04/16 Reported Duoneb (Ipratropium-Albuterol) 3 Ml Nebu 1 Treatment INH Q6H PRN 30 10/20/16 Rx Sotalol Hcl 80 Mg Tab 80 Mg PO BID 08/12/16 Reported Diclofenac Sodium (Diclofenac Sodium (Topical)) 1 % Gel 1 Appln TOP TID 08/12/16 Reported APPLY DIRECTED TO LEFT SHOULDER Lyrica (Pregabalin) 75 Mg Cap 75 Mg PO HS 08/12/16 Reported Deep Sea Nasal Soso (Saline) 0.65 % Spr 2 Sprays SABRINA UD 08/12/16 Reported INSTILL 2 SPRAYS INTO EACH NOSTRIL AT THE FOLLOWING HOURS: 0700, 0900, 1100, 1500, 1700, 1900, 2100 AND 2300 HOURS Tylenol (Acetaminophen) 500 Mg Tab 500 Mg PO TID 08/12/16 Reported Artificial Tears (Polyvinyl Alcohol) 1.4 % Rossy 2 Drops OPB UD 08/12/16 Reported INSTIL 2 DROPS INTO BOTH EYES AT THESE HOURS: 0900 1100 1300 1500 1700 1900 2100 Potassium Chloride Er (Potassium Chloride) 10 Meq Tab 20 Meq PO TID 08/12/16 Reported Oxycodone HCl 5 Mg Tab 5 Mg PO Q4H PRN 08/12/16 Reported Milk Of Magnesia (Magnesium Hydroxide) 30 Ml Susp 30 Ml PO UD PRN 08/12/16 Reported ONE TIME DAILY FOR NO BOWEL MOVEMENT FOR 3 DAYS. ADMINISTER ON THE MORNING OF DAY 4. Deep Sea Nasal Soso (Saline) 0.65 % Spr 2 Sprays SABRINA Q4H PRN 08/12/16 Reported Gas Relief Extra Strength (Simethicone) 125 Mg Chw 125 Mg PO TID 04/29/16 Reported Norvasc (Amlodipine Besylate) 5 Mg Tab 5 Mg PO DAILY 04/29/16 Reported Zaroxolyn (Metolazone) 2.5 Mg Tab 2.5 Mg PO 2XWK 04/07/16 Reported TAKE THIS MEDICATION EVERY THURSDAY AND THURSDAY Lasix (Furosemide) 20 Mg Tab 20 Mg PO QAM 04/07/16 Reported Oxygen Gas 2 Liters NA UD PRN 02/20/16 Reported Glucophage (Metformin Hcl) 1,000 Mg Tab 1,000 Mg PO BIDM 02/05/16 Reported Fleet Enema (Sodium Phosphate/Biphosphate) Keila 1 Ea IN UD PRN 02/05/16 Reported DAILY NEEDED ON DAY 6 IF DULCOLAX SUPPOSITORY WAS INEFFECTIVE Senexon-S (Sennosides-Docusate Sodium) 1 Tab Tab 2 Tabs PO BID 02/05/16 Reported Protonix (Pantoprazole Sodium) 40 Mg Tab 40 Mg PO BID 01/07/16 Reported Duloxetine HCl 60 Mg Cap 60 Mg PO QAM 12/20/15 Reported Amitriptyline HCl 10 Mg Tab 10 Mg PO BID 08/25/15 Reported Ferrous Sulfate 325 Mg Tab 325 Mg PO BIDM 04/20/15 Reported Baclofen 20 Mg Tab 20 Mg PO TID 04/20/15 Reported Crestor (Rosuvastatin Calcium) 10 Mg Tab 10 Mg PO DAILY 04/20/15 Reported Current Inpatient Medications Current Inpatient Medications Medications (Trade) Dose Ordered Sig/Betzy Route Start Time Stop Time Status Last Admin Dose Admin Acetaminophen (Tylenol Tab) 650 mg Q4H PRN PO 12/04/16 14:45 01/03/17 14:44 12/05/16 10:12 650 MG Ondansetron HCl (Zofran Inj) 4 mg Q6H PRN IV 12/04/16 14:45 01/03/17 14:44 Heparin Sodium (Porcine) (Heparin Sq 5000 Unit/0.5ml) 5,000 unit Q12 SQ 12/04/16 21:00 01/03/17 20:59 12/05/16 07:22 5,000 UNIT Piperacillin Sod/ Tazobactam Sod (Consult) 1 ea UD PRN N/A 12/04/16 15:20 01/03/17 15:19 Vancomycin HCl 1 ea 1 ea UD PRN N/A 12/04/16 15:26 01/03/17 15:25 Piperacillin Sod/ Tazobactam Sod 3.375 gm/Dextrose 115 ml @ 28.75 mls/ hr Q8H IV 12/04/16 18:00 12/14/16 17:59 12/05/16 09:33 28.75 MLS/HR Vancomycin HCl/ Sodium Chloride (Vancomycin Inj/ Nss 250ml) 274 ml @ 125 mls/hr DAILY@1000 IV 12/05/16 10:00 12/15/16 09:59 12/05/16 10:04 125 MLS/HR Insulin Aspart (novoLOG ASPART) SLIDING SCALE If C... ACHS SC 12/04/16 16:00 01/03/17 15:59 12/05/16 08:21 3 UNITS Glucose (Glucose 40% Gel) 15-30 GRAMS 15 GRAMS... UD PRN PO 12/04/16 15:45 01/03/17 15:44 Glucose (Glucose Chew Tab) 4-8 Tablets 4 Tabl... UD PRN PO 12/04/16 15:45 01/03/17 15:44 Dextrose (Dextrose 50% 50ML Syringe) 25-50ML OF 50% DW IV FOR... UD PRN IV 12/04/16 15:45 01/03/17 15:44 Glucagon (Glucagon Inj) 1 mg UD PRN SQ 12/04/16 15:45 01/03/17 15:44 Review of Systems Constitutional: + fatigue, + weakness, No chills, No fever, No sweats Eyes: No worsening of vision ENT: No hearing loss Respiratory: No cough, No shortness of breath Cardiovascular: No chest pain Abdomen: + nausea, No diarrhea, No pain, No vomiting Musculoskeletal: + muscle pain (right leg pain increased), + swelling ( bilateral lower extremities), No joint pain Genitourinary - Male: + problem reported (chronic indwelling Cantrell) Integumentary: + color change (darkening/erythema of lower extremities- chronic venous changes), No itch, No rash Physical Exam Date Time Temp Pulse Resp B/P Pulse Ox O2 Delivery O2 Flow Rate FiO2 12/05/16 08:00 91 Nasal Cannula 2.0 12/05/16 07:47 37.2 73 20 112/68 91 Nasal Cannula 2.0 12/04/16 23:59 Nasal Cannula 3.0 12/04/16 23:31 36.9 87 16 147/82 82 Room Air 12/04/16 19:24 37.1 75 20 127/80 90 Nasal Cannula 3.0 12/04/16 17:28 37.1 75 20 127/80 90 Nasal Cannula 3.0 12/04/16 15:53 73 16 125/89 94 Nasal Cannula 3.0 12/04/16 15:24 70 18 145/82 95 Nasal Cannula 3.0 12/04/16 13:21 72 16 143/88 96 Nasal Cannula 3.0 12/04/16 13:15 69 12/04/16 11:46 66 16 124/78 94 Nasal Cannula 3.0 12/04/16 11:02 36.9 General Appearance: no apparent distress, + obese Head: normocephalic, atraumatic Eyes: normal inspection, sclerae normal ENT: hearing grossly normal Neck: supple, trachea midline Respiratory/Chest: chest non-tender, no respiratory distress, no accessory muscle use, + wheezing (mild throughout) Cardiovascular: regular rate, rhythm Abdomen/GI: normal bowel sounds, non tender, soft, + pertinent finding ( colostomy) Extremities/Musculoskelatal: + swelling (bilateral lower extremities-mild) Neurologic/Psych: alert, normal mood/affect Skin: warm/dry, + pertinent finding (left lower extremity with dark purple/ erythematous discoloration- appears chronic. RLE with mild erythema of the anterior tibial surface- mild warmth to palpation) Laboratory Results PA CHEST RADIOGRAPH AND UPRIGHT AND SUPINE AP RADIOGRAPHS OF THE ABDOMEN CLINICAL HISTORY: Fever. Ostomy. COMPARISON STUDY: Chest radiograph and CT of the abdomen and pelvis October 12, 2016. FINDINGS: Lung volumes are diminished. This is unchanged. Mild bibasilar opacities favor atelectasis. There is no evidence of pulmonary edema. There is severe arthritis of both glenohumeral joints. Deformity of the right hip is noted. Hardware within the proximal left femur is partially imaged. An ostomy is noted projecting over the left lower quadrant. The bowel gas pattern is normal. There is no evidence for free air. IMPRESSION: 1. No free air or evidence of bowel obstruction. 2. Diminished lung volumes with suspected bibasilar atelectasis. RUN DATE: 12/05/16 [facility] LAB PAGE 1 RUN TIME: 806 Specimen Inquiry PATIENT: CARLY BELLA LOC: ANNIE U # : [id number] AGE/SX: 76/M ROOM: W257 REG : 12/04/[address]: Heather David M.D. : 1940 BED: 1 DIS : STATUS: ADM IN TLOC: SPEC #: [id number] HOLGER: 12/04/16-1214 STATUS: RES REQ #: [id number] RECD: 12/04/16-[address]: Harsh Limon DO SOURCE: URINE CATH ENTR: 12/04/16-[address]: Lilo Davis M.D. SPDESC: ORDERED: CULTURE UR CATH Procedure Result Verified Site URINE CULTURE Preliminary 12/05/16-806 Organism 1 PROBABLE PSEUDOMONAS SPECIES COLONY COUNT >100,000 CFU/ml SENS SENSITIVITY TO FOLLOW Item Value Date Time Gram Stain - Final Resulted 12/04/16 1840 Sputum Expectorated Sputum Urine Culture - Preliminary Resulted 12/04/16 1215 Urine,Catheterized Probable Pseudomonas Species Blood Culture Received 12/04/16 1120 Blood Pending Blood Culture Received 12/04/16 1010 Blood Pending Last 24 Hours Test 12/04/16 11:22 12/04/16 11:26 12/04/16 12:15 12/04/16 17:19 Bedside Lactic Acid Venous 1.80 mmol/L Bedside Hemoglobin 11.9 g/dl Bedside Hematocrit 35 % Bedside Sodium 134 mEq/L Bedside Potassium 3.6 mEq/L Bedside Chloride 96 mEq/L Bedside Total CO2 25 mEq/l Anion Gap 17.0 mmol/L Bedside Blood Urea Nitrogen 18 mg/dl Bedside Creatinine 1.2 mg/dl Bedside Glucose (other) 137 mg/dl Bedside Ionized Calcium (Yoko) 0.91 mmol/l Urine Color YELLOW Urine Appearance CLOUDY Urine pH 5.5 Urine Specific [place] 1.014 Urine Protein TRACE Urine Glucose (UA) NEG Urine Ketones NEG Urine Occult Blood 3+ Urine Nitrite NEG Urine Bilirubin NEG Urine Urobilinogen NEG Urine Leukocyte Esterase LARGE Urine WBC (Auto) >30 /hpf Urine RBC (Auto) 5-10 /hpf Urine Hyaline Casts (Auto) 5-10 /lpf Urine Epithelial Cells (Auto) 20-30 /lpf Urine Bacteria (Auto) 1+ Bedside Glucose 153 mg/dl Test 12/04/16 20:20 12/04/16 20:38 12/05/16 07:20 12/05/16 07:32 Lactic Acid Level 1.5 mmol/L Procalcitonin 0.46 ng/ml Bedside Glucose 134 mg/dl 132 mg/dl White Blood Count 5.54 K/uL Red Blood Count 4.19 M/uL Hemoglobin 10.5 g/dL Hematocrit 34.7 % Mean Corpuscular Volume 82.8 fL Mean Corpuscular Hemoglobin 25.1 pg Mean Corpuscular Hemoglobin Concent 30.3 g/dl RDW Standard Deviation 55.2 fL RDW Coefficient of Variation 18.2 % Platelet Count 201 K/uL Mean Platelet Volume 9.6 fL Prothrombin Time 16.8 SECONDS Prothromb Time International Ratio 1.5 Sodium Level 137 mmol/L Potassium Level 3.3 mmol/L Chloride Level 98 mmol/L Carbon Dioxide Level 30 mmol/L Anion Gap 9.0 mmol/L Blood Urea Nitrogen 16 mg/dl Creatinine 1.10 mg/dl Est Creatinine Clear Calc Drug Dose 73.2 ml/min Estimated GFR () 76.2 Estimated GFR (Non- 65.8 BUN/Creatinine Ratio 14.6 Random Glucose 118 mg/dl Calcium Level 7.9 mg/dl Assessment & Plan Patient with neurogenic bladder and chronic indwelling Cantrell catheter with history of multiple UTI's and new onset encephalopathy and probable recurrent UTI. Urine culture growing Pseudomonas species currently. He is on IV Vancomycin and Zosyn. The patient does also have recent history of MRSA from sputum culture. Therefore, would recommend continued broad spectrum abx therapy pending final sputum and urine culture. Patient likely will need at least 10 days of abx therapy for recurrent UTI pending culture- has previously had quinolone sensitive Pseudomonas. We will follow. PROVIDER ADDENDUM: Patient examined and reviewed with Ms. Bah. Agree with above assessment.
[2016-12-05 14:23] VITALS: BP 135/84; PULSE 76; O2SAT 94
[2016-12-05] MEDS ORDERED: KETOROLAC TROMETHAMINE 15 MG/ML VIAL IV. SCH (15:30)
[2016-12-05 16:03] VITALS: BP 147/72; PULSE 74; TEMP 36.9; O2SAT 94
--- NOTE | 2016-12-05 16:12 | Progress Note ---
Internal Med Progress Note Date of Service: December 05, 2016. Provider Documentation: SUBJECTIVE: The patient was seen and examined Complains of Headache and sweating Nonspecific Chest pain as well OBJECTIVE: Vital Signs-as noted below Exam: General-no distress at rest Eyes-normal ENT-normal Neck-supple Lungs-clear to ausucltate bilaterally Heart-Regular,no murmur appreciated Abdomen-Benign,no masses,bowel sound present Colostomy site is OK Extremities-1+ Edema bilaterally Chronic skin changed bilaterally Bilateral Heel decubitus Neuro-AAOX3 Lab data as noted below. ASSESSMENT & PLAN: ALTERED MENTAL STATUS Metabolic encephalopathy due to recurrent UTI in pt with chronic indwelling Cantrell catheter; hx recurrent presentations for the same; No Apparent sepsis on admission Prior urine cx grew pseudomonas and resistant E. coli Recent admission for metabolic encephalopathy from infection- grew MRSA on sputum cx in 10/2016- treated with ceftaroline -> cefdinir Recently tx for LLE cellulitis with Augmentin- bilat LE back to baseline per PA- C at [facility]' note today Reported fever of 101.8 on 12/03/16 UA- large leuk esterase, WBC >30, epithelial cells 20-30, bacteria 1+ Blood cx and urine cx pending; will check sputum cx Started on Zosyn, cefepime, and 1 liter IVFs in ER Changed to Zosyn and vancomycin (due to hx MRSA) Appreciate ID input CHRONIC RESPIRATORY FAILURE Usually on PRN O2 per prior hospitalization notes Currently requiring 3 liters NC May be hypoventilating due to lethargy CXR with bibasilar opacities favoring atelectasis Check sputum culture Incentive spirometry once awake Continue supplemental O2 per protocol CKD STAGE III Creat is at baseline Received 1 liter NSS in ER Monitor renal function Avoid nephrotoxins Renal function normalized SIGMOID COLECTOMY FOR SIGMOID VOLVULUS Colostomy putting out green liquid stool No evidence obstruction on x-ray PAF Currently in sinus rhythm rate controlled; continue sotalol once awake INR subtherapeutic at 1.6 Continue Coumadin once awake enough to take PO SQ heparin until INR therapeutic Monitor INR DIASTOLIC CHF Prior echo EF 60-65% Appears mildly dry Received IVF's 1 liter in ER Hold Lasix for now Monitor volume status DM 2 Recent A1C 7.5 in 09/2016 Hold oral antidiabetic meds Insulin sliding scale coverage HYPERTENSION Stable; continue amlodipine and sotalol once more awake CAD Stable; continue aspirin, statin, beta homer once more awake DVT PROPHYLAXIS Continue Coumadin once more awake Heparin SQ until INR therapeutic Continue Coumadin CODE STATUS DNR per discussion with WALLACE Gould (cousin) via phone call ([phone] )-as per admiting physician Will call and update as needed DISPOSITION Resides at [facility] Vital Signs: Date Time Temp Pulse Resp B/P Pulse Ox O2 Delivery O2 Flow Rate FiO2 12/05/16 14:23 76 16 135/84 94 Nasal Cannula 2.0 12/05/16 08:00 91 Nasal Cannula 2.0 12/05/16 07:47 37.2 73 20 112/68 91 Nasal Cannula 2.0 12/04/16 23:59 Nasal Cannula 3.0 12/04/16 23:31 36.9 87 16 147/82 82 Room Air 12/04/16 19:24 37.1 75 20 127/80 90 Nasal Cannula 3.0 12/04/16 17:28 37.1 75 20 127/80 90 Nasal Cannula 3.0 Lab Results: Results Past 24 Hours Test 12/04/16 17:19 12/04/16 20:20 12/04/16 20:38 12/05/16 07:20 Range/Units Bedside Glucose 153 134 70-99 mg/dl Lactic Acid Level 1.5 0.4-2.0 mmol/L Procalcitonin 0.46 0-0.5 ng/ml White Blood Count 5.54 4.8-10.8 K/uL Red Blood Count 4.19 4.7-6.1 M/uL Hemoglobin 10.5 14.0-18.0 g/dL Hematocrit 34.7 42-52 % Mean Corpuscular Volume 82.8 80-100 fL Mean Corpuscular Hemoglobin 25.1 25-34 pg Mean Corpuscular Hemoglobin Concent 30.3 32-36 g/dl RDW Standard Deviation 55.2 36.4-46.3 fL RDW Coefficient of Variation 18.2 11.5-14.5 % Platelet Count 201 130-400 K/uL Mean Platelet Volume 9.6 7.4-10.4 fL Prothrombin Time 16.8 9.0-12.0 SECONDS Prothromb Time International Ratio 1.5 0.9-1.1 Sodium Level 137 136-145 mmol/L Potassium Level 3.3 3.5-5.1 mmol/L Chloride Level 98 98-107 mmol/L Carbon Dioxide Level 30 21-32 mmol/L Anion Gap 9.0 3-11 mmol/L Blood Urea Nitrogen 16 7-18 mg/dl Creatinine 1.10 0.60-1.40 mg/dl Est Creatinine Clear Calc Drug Dose 73.2 ml/min Estimated GFR () 76.2 Estimated GFR (Non- 65.8 BUN/Creatinine Ratio 14.6 10-20 Random Glucose 118 70-99 mg/dl Calcium Level 7.9 8.5-10.1 mg/dl Test 12/05/16 07:32 12/05/16 11:29 12/05/16 14:37 Range/Units Bedside Glucose 132 172 70-99 mg/dl Troponin I < 0.015 0-0.045 ng/ml Microbiology Results 12/04/16 Gram Stain - Final, Resulted 12/04/16 Sputum Culture - Preliminary, Resulted Staph Species
[2016-12-05] MEDS ORDERED: WARFARIN SOD 3 MG TAB PO ONE (16:36)
[2016-12-06 00:18] VITALS: BP 141/78; PULSE 74; TEMP 36.8; O2SAT 94
[2016-12-06] MEDS: TRAMADOL HCL 50 MG TAB PO PRN ×4 (00:34→22:21)
[2016-12-06] MEDS: PIPERACILL/TAZOBAC IV 3.375 GM in DEXTROSE 5% 100ML 100 ML IV SCH ×3 (02:22→18:47)
[2016-12-06] MEDS: ACETAMINOPHEN 325 MG TAB PO PRN ×4 (04:57→23:10)
[2016-12-06 07:34] LABS: INR 1.5 (0.9-1.1); PROTHROMBIN TIME (PATIENT) 16.7 SECONDS (9.0-12.0)
[2016-12-06 07:44] LABS: CREATININE 1.1 mg/dl (0.60-1.40)
[2016-12-06] MEDS: INSULIN ASPART 100 UNITS/ML 3 ML PEN SC SCH ×4 (08:01→21:10)
[2016-12-06] MEDS: HEPARIN SOD 5000 UNIT/0.5 ML CARP SQ SCH ×2 (08:01→21:10)
[2016-12-06 08:07] VITALS: BP 171/93; PULSE 78; TEMP 37; O2SAT 96
[2016-12-06] MEDS: PREGABALIN 50 MG CAP PO SCH (09:47)
[2016-12-06] MEDS: VANCOMYCIN INJ 1,200 MG in SODIUM CHLORIDE 0.9% 250ML 250 ML IV SCH (09:55)
[2016-12-06 12:15] VITALS: BP 180/85; PULSE 93
[2016-12-06] MEDS ORDERED: AMLODIPINE BESYLATE 5 MG TAB PO ONE (14:00)
[2016-12-06] MEDS ORDERED: FUROSEMIDE 20 MG TAB PO ONE (14:00)
[2016-12-06 15:32] VITALS: BP 159/76; PULSE 92; TEMP 36.9; O2SAT 96
--- NOTE | 2016-12-06 15:58 | Progress Note ---
Internal Med Progress Note Date of Service: December 06, 2016. Provider Documentation: SUBJECTIVE: The patient was seen and examined Complains of Headache and sweating -resolved Remains stable and wants to go back to [facility] OBJECTIVE: Vital Signs-as noted below Exam: General-no distress at rest Eyes-normal ENT-normal Neck-supple Lungs-clear to ausucltate bilaterally Heart-Regular,no murmur appreciated Abdomen-Benign,no masses,bowel sound present Colostomy site is OK Extremities-1+ Edema bilaterally Chronic skin changed bilaterally Bilateral Heel decubitus Neuro-AAOX3 Lab data as noted below. ASSESSMENT & PLAN: ALTERED MENTAL STATUS-resolved Metabolic encephalopathy due to recurrent UTI in pt with chronic indwelling Cantrell catheter; hx recurrent presentations for the same; No Apparent sepsis on admission Prior urine cx grew pseudomonas and resistant E. coli Recent admission for metabolic encephalopathy from infection- grew MRSA on sputum cx in 10/2016- treated with ceftaroline -> cefdinir Recently tx for LLE cellulitis with Augmentin- bilat LE back to baseline per PA- C at [facility]'s note today Reported fever of 101.8 on 12/03/16 UA- large leuk esterase, WBC >30, epithelial cells 20-30, bacteria 1+ Blood cx -negative Urine cx-Pseudomonas -sensitive to Quinolones Sputum cx-MRSA :no respiratory symptoms Started on Zosyn, cefepime, and 1 liter IVFs in ER Changed to Zosyn and vancomycin (due to hx MRSA) Appreciate ID input CHRONIC RESPIRATORY FAILURE Usually on PRN O2 per prior hospitalization notes Currently requiring 3 liters NC May be hypoventilating due to lethargy CXR with bibasilar opacities favoring atelectasis Check sputum culture Incentive spirometry once awake Continue supplemental O2 per protocol Doubt any Pneumonia CKD STAGE III Creat is at baseline Received 1 liter NSS in ER Monitor renal function Avoid nephrotoxins Renal function normalized SIGMOID COLECTOMY FOR SIGMOID VOLVULUS Colostomy putting out green liquid stool No evidence obstruction on x-ray PAF Currently in sinus rhythm rate controlled; continue sotalol once awake INR subtherapeutic at 1.6 Continue Coumadin once awake enough to take PO SQ heparin until INR therapeutic Monitor INR DIASTOLIC CHF Prior echo EF 60-65% Appears mildly dry Received IVF's 1 liter in ER Hold Lasix for now Monitor volume status DM 2 Recent A1C 7.5 in 09/2016 Hold oral antidiabetic meds Insulin sliding scale coverage HYPERTENSION Stable; continue amlodipine and sotalol once more awake Restart BP medications BP remains on higher side CAD Stable; continue aspirin, statin, beta homer once more awake DVT PROPHYLAXIS Continue Coumadin once more awake Heparin SQ until INR therapeutic Continue Coumadin CODE STATUS DNR per discussion with WALLACE Gould (cousin) via phone call ([phone] )-as per admiting physician Will call and update as needed DISPOSITION Resides at [facility] Likely back to tomorrow Discussed with significant other Vital Signs: Date Time Temp Pulse Resp B/P Pulse Ox O2 Delivery O2 Flow Rate FiO2 12/06/16 15:32 36.9 92 20 159/76 96 Nasal Cannula 2.0 12/06/16 12:15 93 180/85 12/06/16 08:07 37.0 78 20 171/93 96 Nasal Cannula 2.0 12/06/16 08:00 Nasal Cannula 2.0 12/06/16 00:18 36.8 74 19 141/78 94 Nasal Cannula 2.0 12/06/16 00:00 Nasal Cannula 3.0 12/05/16 17:17 Nasal Cannula 2.0 12/05/16 16:03 36.9 74 20 147/72 94 Nasal Cannula 3.0 Lab Results: Results Past 24 Hours Test 12/05/16 16:38 12/05/16 20:29 12/06/16 06:36 12/06/16 07:10 Range/Units Bedside Glucose 182 157 121 70-99 mg/dl Prothrombin Time 16.7 9.0-12.0 SECONDS Prothromb Time International Ratio 1.5 0.9-1.1 Creatinine 1.10 0.60-1.40 mg/dl Est Creatinine Clear Calc Drug Dose 73.2 ml/min Estimated GFR () 76.2 Estimated GFR (Non- 65.8 Test 12/06/16 11:24 Range/Units Bedside Glucose 191 70-99 mg/dl
[2016-12-06 16:00] VITALS: O2SAT 96
[2016-12-06] MEDS ORDERED: WARFARIN SOD 3 MG TAB PO SCH (16:00)
[2016-12-06] MEDS: ONDANSETRON INJ 2 MG/ML 2 ML VIAL IV PRN (16:27)
[2016-12-06] MEDS ORDERED: PREGABALIN 75 MG CAP PO SCH (21:00)
[2016-12-06] MEDS: SOTALOL HCL 80 MG TAB PO SCH (21:04)
[2016-12-06 23:28] VITALS: BP 136/75; PULSE 74; TEMP 37.1; O2SAT 94
[2016-12-07 01:53] VITALS: O2SAT 96
[2016-12-07] MEDS: PIPERACILL/TAZOBAC IV 3.375 GM in DEXTROSE 5% 100ML 100 ML IV SCH (02:11)
[2016-12-07] MEDS: ONDANSETRON INJ 2 MG/ML 2 ML VIAL IV PRN (03:27)
[2016-12-07] MEDS: ACETAMINOPHEN 325 MG TAB PO PRN ×3 (04:02→13:59)
[2016-12-07] MEDS: TRAMADOL HCL 50 MG TAB PO PRN ×3 (04:59→12:05)
[2016-12-07 07:54] LABS: HEMATOCRIT 35.3 % (42-52); MEAN CELL VOLUME 82.5 fL (80-100); MEAN CORPUSCULAR HEMOGLOBIN 25.7 pg (25-34); MEAN CORPUSCULAR HGB CONC 31.2 g/dl (32-36); MEAN PLATELET VOLUME 9.4 fL (7.4-10.4); PLATELET COUNT 228 K/uL (130-400); RED BLOOD COUNT 4.28 M/uL (4.7-6.1); WHITE BLOOD COUNT 4.13 K/uL (4.8-10.8)
[2016-12-07 08:06] LABS: INR 1.8 (0.9-1.1); PROTHROMBIN TIME (PATIENT) 19.4 SECONDS (9.0-12.0)
[2016-12-07] MEDS: SOTALOL HCL 80 MG TAB PO SCH (08:09)
[2016-12-07] MEDS: PREGABALIN 50 MG CAP PO SCH (08:09)
[2016-12-07 08:12] VITALS: BP 146/77; PULSE 71; TEMP 37.1; O2SAT 91
[2016-12-07] MEDS: INSULIN ASPART 100 UNITS/ML 3 ML PEN SC SCH ×2 (08:16→12:03)
[2016-12-07] MEDS: HEPARIN SOD 5000 UNIT/0.5 ML CARP SQ SCH (08:17)
[2016-12-07] MEDS ORDERED: AMLODIPINE BESYLATE 5 MG TAB PO SCH (09:00)
[2016-12-07] MEDS ORDERED: FUROSEMIDE 20 MG TAB PO SCH (09:00)
[2016-12-07] MEDS ORDERED: VANCOMYCIN TROUGH SCH (09:30)
--- NOTE | 2016-12-07 10:28 | Progress Note ---
Internal Med Progress Note Date of Service: December 07, 2016. Provider Documentation: SUBJECTIVE: The patient was seen and examined Feels fine Ready to be discharged OBJECTIVE: Vital Signs-as noted below Exam: General-no distress at rest Eyes-normal ENT-normal Neck-supple Lungs-clear to ausucltate bilaterally Heart-Regular,no murmur appreciated Abdomen-Benign,no masses,bowel sound present Colostomy site is OK Extremities-1+ Edema bilaterally Chronic skin changed bilaterally Bilateral Heel decubitus Neuro-AAOX3 Lab data as noted below. ASSESSMENT & PLAN: ALTERED MENTAL STATUS-resolved Metabolic encephalopathy due to recurrent UTI in pt with chronic indwelling Cantrell catheter; hx recurrent presentations for the same; No Apparent sepsis on admission Prior urine cx grew pseudomonas and resistant E. coli Recent admission for metabolic encephalopathy from infection- grew MRSA on sputum cx in 10/2016- treated with ceftaroline -> cefdinir Recently tx for LLE cellulitis with Augmentin- bilat LE back to baseline per PA- C at [facility]' note today Reported fever of 101.8 on 12/03/16 UA- large leuk esterase, WBC >30, epithelial cells 20-30, bacteria 1+ Blood cx -negative Urine cx-Pseudomonas -sensitive to Quinolones Sputum cx-MRSA :no respiratory symptoms Started on Zosyn, cefepime, and 1 liter IVFs in ER Changed to Zosyn and vancomycin (due to hx MRSA) Appreciate ID input-d/w ID ,can be discharged on oral Levaquin for 7 days in total Clinically much improved to be discharged CHRONIC RESPIRATORY FAILURE Usually on PRN O2 per prior hospitalization notes Currently requiring 3 liters NC May be hypoventilating due to lethargy CXR with bibasilar opacities favoring atelectasis Check sputum culture Incentive spirometry once awake Continue supplemental O2 per protocol Doubt any Pneumonia No issues now CKD STAGE III Creat is at baseline Received 1 liter NSS in ER Monitor renal function Avoid nephrotoxins Renal function normalized SIGMOID COLECTOMY FOR SIGMOID VOLVULUS Colostomy putting out green liquid stool No evidence obstruction on x-ray PAF Currently in sinus rhythm rate controlled; continue sotalol once awake INR subtherapeutic at 1.6 Continue Coumadin once awake enough to take PO SQ heparin until INR therapeutic Monitor INR-1.8 today DIASTOLIC CHF Prior echo EF 60-65% Appears mildly dry Received IVF's 1 liter in ER Hold Lasix for now Monitor volume status DM 2 Recent A1C 7.5 in 09/2016 Hold oral antidiabetic meds Insulin sliding scale coverage HYPERTENSION Stable; continue amlodipine and sotalol once more awake Restart BP medications BP remains on higher side CAD Stable; continue aspirin, statin, beta homer once more awake DVT PROPHYLAXIS Continue Coumadin once more awake Heparin SQ until INR therapeutic Continue Coumadin CODE STATUS DNR per discussion with WALLACE Gould (cousin) via phone call ([phone] )-as per admiting physician Will call and update as needed DISPOSITION Resides at [facility] Likely back to tomorrow Discussed with significant other Discharge to [facility] today Vital Signs: Date Time Temp Pulse Resp B/P Pulse Ox O2 Delivery O2 Flow Rate FiO2 12/07/16 08:12 37.1 71 20 146/77 91 Room Air 12/07/16 08:00 Nasal Cannula 3.0 12/07/16 01:53 96 Nasal Cannula 3.0 12/06/16 23:28 37.1 74 20 136/75 94 Room Air 12/06/16 16:00 96 Nasal Cannula 3.0 12/06/16 15:32 36.9 92 20 159/76 96 Nasal Cannula 2.0 12/06/16 12:15 93 180/85 Lab Results: Results Past 24 Hours Test 12/06/16 11:24 12/06/16 16:40 12/06/16 20:01 12/07/16 07:11 Range/Units Bedside Glucose 191 191 200 70-99 mg/dl White Blood Count 4.13 4.8-10.8 K/uL Red Blood Count 4.28 4.7-6.1 M/uL Hemoglobin 11.0 14.0-18.0 g/dL Hematocrit 35.3 42-52 % Mean Corpuscular Volume 82.5 80-100 fL Mean Corpuscular Hemoglobin 25.7 25-34 pg Mean Corpuscular Hemoglobin Concent 31.2 32-36 g/dl RDW Standard Deviation 54.8 36.4-46.3 fL RDW Coefficient of Variation 18.1 11.5-14.5 % Platelet Count 228 130-400 K/uL Mean Platelet Volume 9.4 7.4-10.4 fL Prothrombin Time 19.4 9.0-12.0 SECONDS Prothromb Time International Ratio 1.8 0.9-1.1 Creatinine 1.00 0.60-1.40 mg/dl Est Creatinine Clear Calc Drug Dose 80.5 ml/min Estimated GFR () 85.6 Estimated GFR (Non- 73.8 Test 12/07/16 07:48 Range/Units Bedside Glucose 128 70-99 mg/dl
[2016-12-07] MEDS ORDERED: LEVOFLOXACIN 750 MG TAB PO SCH (11:00)
[2016-12-07] MEDS ORDERED: LCTX PO (13:51)
[2016-12-07] MEDS ORDERED: LVQ750 PO (13:51)
[2016-12-07] MEDS ORDERED: LORA-741 PO (13:53)
[2016-12-07] MEDS ORDERED: OXYC-609 PO (13:53)
--- NOTE | 2016-12-07 13:55 | Discharge Instructions ---
Discharge Instructions Date of Service December 07, 2016. Admission Reason for Admission: Ams, Uti Discharge Discharge Diagnosis / Problem: Altered Mental Status due to UTI Discharge Goals Goal(s): Prevent Disease Progression Activity Recommendations Activity Level: Assistance Required Therapies: Physical Therapy, Occupational Therapy . Additional Information Patient informed of condition: Yes Advance Directives: No DNR: Yes Level of Care: Skilled Communicable Disease: No Prognosis: Stable Oxygen at (LPM): 3liters/min via [place] Cantrell Catheter: Yes Instructions / Follow-Up Instructions / Follow-Up As per Deysi xavier provider Current Hospital Diet Patient's current hospital diet: AHA Diet (Heart Healthy), Diabetes Type 2 Diet Discharge Diet Recommended Diet: AHA Diet (Heart Healthy), Diabetes Type 2 Diet Fluid Restriction: 1500 ml (6 cups) Pending Studies Studies pending at discharge: no Laboratory Results Hemoglobin A1c Test 09/28/16 22:17 Range/Units Estimated Average Glucose 169 mg/dl Hemoglobin A1c 7.5 H 4.5-5.6 % Medical Emergencies . Who to Call and When: Medical Emergencies: If at any time you feel your situation is an emergency, please call 911 immediately. . Non-Emergent Contact Non-Emergency issues call your: Primary Care Provider . 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 "Provider Documentation" section prepared by Bertha Rodriguez. . Core Measure Problem Core Measures: None
[2016-12-07 14:03] VITALS: BP 146/77; PULSE 71; TEMP 37.1; O2SAT 91
--- NOTE | 2016-12-08 08:06 | Discharge Summary ---
Discharge Summary Date of Service December 08, 2016. Discharge Summary Admission Date: December 04, 2016 at 14:18 Discharge Date: December 07, 2016 Discharge Disposition: [facility] facility Principal Diagnosis: Altered Mental Status due to UTI secondary to indwelling Kohli catheter Secondary Diagnoses/Problems: Please see H&P and Hospital Progress note Consultations: ID Medication Reconciliation New Medications: Lactobacillus Acidophilus (Lactinex) Tab 2 TAB PO BID, #30 TAB Levofloxacin (Levofloxacin) 750 Mg Tab 750 MG PO DAILY@11 for 6 Days, #6 TAB Continued Medications: Acetaminophen (Tylenol) 500 Mg Tab 500 MG PO TID, TAB Acetaminophen Tab (Tylenol) 325 Mg Tab 650 MG PO Q4H, TAB Amitriptyline HCl (Amitriptyline HCl) 10 Mg Tab 10 MG PO BID Amlodipine (Norvasc) 5 Mg Tab 5 MG PO DAILY, TAB Aspirin (Aspirin Ec) 81 Mg Tab 81 MG PO DAILY Baclofen (Baclofen) 20 Mg Tab 20 MG PO TID Diclofenac Sodium (Topical) (Diclofenac Sodium) 1 % Gel 1 APPLN TOP TID APPLY DIRECTED TO LEFT SHOULDER Duloxetine HCl (Duloxetine HCl) 60 Mg Cap 60 MG PO QAM Ferrous Sulfate (Ferrous Sulfate) 325 Mg Tab 325 MG PO BIDM Furosemide (Lasix) 20 Mg Tab 20 MG PO QAM, TAB Ipratropium-Albuterol (Duoneb) 3 Ml Nebu 1 TREATMENT INH Q6H PRN for SOB/Wheezing for 30 Days, INHA Lorazepam (Ativan) 0.5 Mg Tab 0.5 MG PO Q8H PRN for Anxiety/Agitation for 7 Days, #21 TAB (This prescription has been renewed) Magnesium Hydroxide (Milk Of Magnesia) 30 Ml Susp 30 ML PO UD PRN for Constipation, ML ONE TIME DAILY FOR NO BOWEL MOVEMENT FOR 3 DAYS. ADMINISTER ON THE MORNING OF DAY 4. Metformin Hcl (Glucophage) 1,000 Mg Tab 1000 MG PO BIDM, TAB Metolazone (Zaroxolyn) 2.5 Mg Tab 2.5 MG PO 2XWK, TAB TAKE THIS MEDICATION EVERY THURSDAY AND THURSDAY Oxycodone HCl (Oxycodone HCl) 5 Mg Tab 5 MG PO Q4H PRN for Moderate to Severe Pain for 7 Days, #20 (This prescription has been renewed) Oxygen (Oxygen) Gas 2 LITERS NA UD PRN for Shortness of Breath Pantoprazole Sodium (Protonix) 40 Mg Tab 40 MG PO BID, TAB Polyvinyl Alcohol (Artificial Tears) 1.4 % Rossy 2 DROPS OPB UD INSTIL 2 DROPS INTO BOTH EYES AT THESE HOURS: 0900 1100 1300 1500 1700 1900 2100 Potassium Chloride (Potassium Chloride Er) 10 Meq Tab 20 MEQ PO TID, TAB Pregabalin (Lyrica) 75 Mg Cap 75 MG PO HS, CAP Pregabalin (Lyrica) 50 Mg Cap 50 MG PO QAM, CAP Rosuvastatin Calcium (Crestor) 10 Mg Tab 10 MG PO DAILY Saline (Deep Sea Nasal Bloxom) 0.65 % Spr 2 SPRAYS SABRINA Q4H PRN for DRYNESS Saline (Deep Sea Nasal Bloxom) 0.65 % Spr 2 SPRAYS SABRINA UD INSTILL 2 SPRAYS INTO EACH NOSTRIL AT THE FOLLOWING HOURS: 0700, 0900, 1100, 1500, 1700, 1900, 2100 AND 2300 HOURS Sennosides-Docusate Sodium (Senexon-S) 1 Tab Tab 2 TABS PO BID Simethicone (Gas Relief Extra Strength) 125 Mg Chw 125 MG PO TID Sodium Phosphate/Biphosphate (Fleet Enema) Keila 1 EA AK UD PRN for Constipation, BTL DAILY NEEDED ON DAY 6 IF DULCOLAX SUPPOSITORY WAS INEFFECTIVE Sotalol Hcl (Sotalol Hcl) 80 Mg Tab 80 MG PO BID, TAB Warfarin Sod (Coumadin) 3 Mg Tab 1.5 MG PO 2XWK ON MON&FRI Warfarin Sodium (Coumadin) 3 Mg Tab 3 MG PO 5XWK, TAB THU,THU,THU,TH.SAT Admission Information HPI (per Admitting provider): This is a 76 y/o male with PMH of chronic resp failure on home O2 PRN, diastolic CHF, CAD, HTN, PAF on Coumadin, DM 2, paraplegia, recurrent UTI, chronic indwelling Kohli due to 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 Patient was recently admitted from October 12-2016 for metabolic encephalopathy due to infection, initially thought to have UTI and started on cefepime. Urine and blood cx were negative but sputum cx grew MRSA. Abx changed to ceftaroline. Patient was seen by ID last admission. Mental status was back to baseline by discharge (oriented x 3). Ten days ago patient was treated with Augmentin for LLE cellulitis. Per detention provider notes erythema returned to baseline w / chronic dermatitis bilat LE's. Per [place] provider patient spiked fever 101.8 last night with chills, worsening generalized abdominal pain, bloating. Fever tx with Tylenol. This morning pt was lethargic and more confused than baseline. Pt was sent to ER for concern for sepsis and/or colonic obstruction. Pt reports feeling tired currently. Denies chest pain or abdominal pain. Cannot obtain more hx due to lethargy and confusion. I spoke to pt's cousin Darius on the phone who was in the ER w/ the patient earlier today- he said presentation is similar to prior infections. 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 (13) Warfarin anticoagulation Status: Chronic Surgical Problems: (1) H/O inguinal hernia repair Status: Chronic (2) H/O resection of large bowel Permanent Comment: colostomy Status: Chronic (3) H/O sinus surgery Status: Chronic (4) Status post hip hemiarthroplasty Permanent Comment: right Status: Chronic (5) Status post removal right hip prosthesis Status: Chronic (6) Status post total knee replacement Permanent Comment: BL, with revision of left Status: Chronic Family History Cerebral aneurysm BROTHER Colon cancer SISTER Diabetes mellitus MOTHER Heart disease FATHER MOTHER Hypertension FATHER Prostate cancer FATHER Stroke FATHER Social History Smoking Status: Unknown if Ever Smoked Drug Use: none Marital Status: single Housing status: detention ([facility]) Occupational Status: retired Immunizations History of Influenza Vaccine: Yes Influenza Vaccine Date: Apr 01, 2014 History of Tetanus Vaccine?: Yes Tetanus Immunization Date: May 13, 1996 History of Pneumococcal: Yes Pneumococcal Date: Jun 26, 2010 History of Hepatitis B Vaccine: No Multi-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, MRSA Allergies Coded Allergies: Latex (Verified Allergy, Mild, UNSURE - FROM [facility], 12/04/16) Macrolides and Ketolides (Verified Allergy, Unknown, [facility], 12/04/16) Azithromycin (Verified Adverse Reaction, Mild, nausea, 12/04/16) with nausea and diarrhea Home Medications Scheduled Acetaminophen (Tylenol), 500 MG PO TID Acetaminophen Tab (Tylenol), 650 MG PO Q4H Amitriptyline HCl (Amitriptyline HCl), 10 MG PO BID Amlodipine (Norvasc), 5 MG PO DAILY Aspirin (Aspirin Ec), 81 MG PO DAILY Baclofen (Baclofen), 20 MG PO TID Diclofenac Sodium (Topical) (Diclofenac Sodium), 1 APPLN TOP TID Duloxetine HCl (Duloxetine HCl), 60 MG PO QAM Ferrous Sulfate (Ferrous Sulfate), 325 MG PO BIDM Furosemide (Lasix), 20 MG PO QAM Metformin Hcl (Glucophage), 1,000 MG PO BIDM Metolazone (Zaroxolyn), 2.5 MG PO 2XWK Pantoprazole Sodium (Protonix), 40 MG PO BID Polyvinyl Alcohol (Artificial Tears), 2 DROPS OPB UD Potassium Chloride (Potassium Chloride Er), 20 MEQ PO TID Pregabalin (Lyrica), 75 MG PO HS Pregabalin (Lyrica), 50 MG PO QAM Rosuvastatin Calcium (Crestor), 10 MG PO DAILY Saline (Deep Sea Nasal Bloxom), 2 SPRAYS SABRINA UD Sennosides-Docusate Sodium (Senexon-S), 2 TABS PO BID Simethicone (Gas Relief Extra Strength), 125 MG PO TID Sotalol Hcl (Sotalol Hcl), 80 MG PO BID Warfarin Sod (Coumadin), 1.5 MG PO 2XWK Warfarin Sodium (Coumadin), 3 MG PO 5XWK Scheduled PRN Ipratropium-Albuterol (Duoneb), 1 TREATMENT INH Q6H PRN for SOB/Wheezing Lorazepam (Ativan), 0.5 MG PO Q8H PRN for Anxiety/Agitation Magnesium Hydroxide (Milk Of Magnesia), 30 ML PO UD PRN for Constipation Oxycodone HCl (Oxycodone HCl), 5 MG PO Q4H PRN for Moderate to Severe Pain Oxygen (Oxygen), 2 LITERS NA UD PRN for Shortness of Breath Saline (Deep Sea Nasal Bloxom), 2 SPRAYS SABRINA Q4H PRN for DRYNESS Sodium Phosphate/Biphosphate (Fleet Enema), 1 EA AK UD PRN for Constipation Review of Systems Unable to obtain ROS due to patient's mental status. Physical Ex - H&P Physical Exam Vital Signs Date Time Temp Pulse Resp B/P Pulse Ox O2 Delivery O2 Flow Rate FiO2 12/04/16 13:21 72 16 143/88 96 Nasal Cannula 3.0 12/04/16 13:15 69 12/04/16 11:46 66 16 124/78 94 Nasal Cannula 3.0 12/04/16 11:02 36.9 12/04/16 10:07 70 12/04/16 10:04 93 Nasal Cannula 4.0 12/04/16 10:04 36.9 70 18 135/94 93 Nasal Cannula 4.0 General Appearance: + obese, + pertinent finding (alert acutely ill 76 year old male, diaphoretic, lethargic, awakens to verbal stimulation but falls asleep during questioning, confused) Head: normocephalic, atraumatic Eyes: normal inspection, PERRL, EOMI ENT: hearing grossly normal, pharynx normal Neck: supple, trachea midline Respiratory/Chest: lungs clear, no respiratory distress, no accessory muscle use, + decreased breath sounds, + pertinent finding (saturating well on 3 liters NC) Cardiovascular: regular rate, rhythm, no murmur, normal peripheral pulses Abdomen/GI: normal bowel sounds, non tender, soft, + pertinent finding (mildly distended but soft, colostomy with green liquid stool, stoma appears viable) Extremities/Musculoskelatal: no pedal edema Neurologic/Psych: + pertinent finding (lethargic, awaknens to verbal stimulation briefly but falls asleep during exam, confused, identifies he is in the hospital, but unable to state his name or birthday. follows commands. no dysarthria or facial droop. upper extremity 5/5 bilat. 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 multiple exchars on bilateral LE. no open wound or drainage.) Diagnostics - H&P Diagnostics Laboratory Results Results Past 24 Hours Test 12/04/16 10:10 12/04/16 11:22 12/04/16 11:26 12/04/16 12:15 Range/Units White Blood Count 6.62 4.8-10.8 K/uL Red Blood Count 4.29 4.7-6.1 M/uL Hemoglobin 11.0 14.0-18.0 g/dL Hematocrit 35.9 42-52 % Mean Corpuscular Volume 83.7 80-100 fL Mean Corpuscular Hemoglobin 25.6 25-34 pg Mean Corpuscular Hemoglobin Concent 30.6 32-36 g/dl Platelet Count 217 130-400 K/uL Mean Platelet Volume 9.8 7.4-10.4 fL Neutrophils (%) (Auto) 69.5 % Lymphocytes (%) (Auto) 15.3 % Monocytes (%) (Auto) 12.4 % Eosinophils (%) (Auto) 1.1 % Basophils (%) (Auto) 0.2 % Neutrophils # (Auto) 4.61 1.4-6.5 K/uL Lymphocytes # (Auto) 1.01 1.2-3.4 K/uL Monocytes # (Auto) 0.82 0.11-0.59 K/uL Eosinophils # (Auto) 0.07 0-0.5 K/uL Basophils # (Auto) 0.01 0-0.2 K/uL RDW Standard Deviation 56.6 36.4-46.3 fL RDW Coefficient of Variation 18.4 11.5-14.5 % Immature Granulocyte % (Auto) 1.5 % Immature Granulocyte # (Auto) 0.10 0.00-0.02 K/uL Prothrombin Time 17.4 9.0-12.0 SECONDS Prothromb Time International Ratio 1.6 0.9-1.1 Sodium Level 135 136-145 mmol/L Potassium Level 3.6 3.5-5.1 mmol/L Chloride Level 97 98-107 mmol/L Carbon Dioxide Level 32 21-32 mmol/L Anion Gap 6.0 17.0 16-25 mmol/L Blood Urea Nitrogen 19 7-18 mg/dl Creatinine 1.20 0.60-1.40 mg/dl Est Creatinine Clear Calc Drug Dose 66.0 ml/min Estimated GFR () 68.6 Estimated GFR (Non- 59.2 BUN/Creatinine Ratio 15.5 10-20 Random Glucose 130 70-99 mg/dl Calcium Level 8.3 8.5-10.1 mg/dl Magnesium Level 2.3 1.8-2.4 mg/dl Total Bilirubin 0.2 0.2-1 mg/dl Direct Bilirubin 0.1 0-0.2 mg/dl Aspartate Amino Transf (AST/SGOT) 34 15-37 U/L Alanine Aminotransferase (ALT/SGPT) 37 12-78 U/L Alkaline Phosphatase 126 45-117 U/L Total Creatine Kinase 62 39-308 U/L Creatine Kinase MB 0.7 0.5-3.6 ng/ml Creatine Kinase MB Ratio 1.1 0-3.0 Troponin I 0.020 0-0.045 ng/ml Total Protein 7.8 6.4-8.2 gm/dl Albumin 2.9 3.4-5.0 gm/dl Bedside Lactic Acid Venous 1.80 0.90-1.70 mmol/L Bedside Hemoglobin 11.9 14.0-18.0 g/dl Bedside Hematocrit 35 42-52 % Bedside Sodium 134 135-144 mEq/L Bedside Potassium 3.6 3.3-5.0 mEq/L Bedside Chloride 96 101-112 mEq/L Bedside Total CO2 25 24-31 mEq/l Bedside Blood Urea Nitrogen 18 7-18 mg/dl Bedside Creatinine 1.2 0.6-1.3 mg/dl Bedside Glucose (other) 137 70-99 mg/dl Bedside Ionized Calcium (Yoko) 0.91 1.12-1.32 mmol/l Urine Color YELLOW Urine Appearance CLOUDY CLEAR Urine pH 5.5 4.5-7.5 Urine Specific [place] 1.014 1.000-1.030 Urine Protein TRACE NEG Urine Glucose (UA) NEG NEG Urine Ketones NEG NEG Urine Occult Blood 3+ NEG Urine Nitrite NEG NEG Urine Bilirubin NEG NEG Urine Urobilinogen NEG NEG Urine Leukocyte Esterase LARGE NEG Urine WBC (Auto) >30 0-5 /hpf Urine RBC (Auto) 5-10 0-4 /hpf Urine Hyaline Casts (Auto) 5-10 0-5 /lpf Urine Epithelial Cells (Auto) 20-30 0-5 /lpf Urine Bacteria (Auto) 1+ NEG Microbiology Results 12/04/16 Blood Culture, Received Pending 12/04/16 Blood Culture, Received Pending 12/04/16 Urine Culture, Received Pending Diagnostic Radiology PA CHEST RADIOGRAPH AND UPRIGHT AND SUPINE AP RADIOGRAPHS OF THE ABDOMEN CLINICAL HISTORY: Fever. Ostomy. COMPARISON STUDY: Chest radiograph and CT of the abdomen and pelvis October 12, 2016. FINDINGS: Lung volumes are diminished. This is unchanged. Mild bibasilar opacities favor atelectasis. There is no evidence of pulmonary edema. There is severe arthritis of both glenohumeral joints. Deformity of the right hip is noted. Hardware within the proximal left femur is partially imaged. An ostomy is noted projecting over the left lower quadrant. The bowel gas pattern is normal. There is no evidence for free air. IMPRESSION: 1. No free air or evidence of bowel obstruction. 2. Diminished lung volumes with suspected bibasilar atelectasis. EKG NSR, LVH with repolarization abnormality, when compared to prior EKG nonspecific T wave abnormality, improved in Inferior leads, T wave inversion less evident in Anterior leads, T wave inversion more evident in Lateral leads, as per cardiology interpretation Impression - H&P Impression Assessment and Plan ALTERED MENTAL STATUS Probable metabolic encephalopathy due to recurrent UTI in pt with chronic indwelling Kohli catheter; hx recurrent presentations for the same; no focal deficit on exam Prior urine cx grew pseudomonas and resistant E. coli Recent admission for metabolic encephalopathy from infection- grew MRSA on sputum cx in 10/2016- treated with ceftaroline -> cefdinir Recently tx for LLE cellulitis with Augmentin- bilat LE back to baseline per PA- C at [facility]'s note today Reported fever of 101.8 yesterday, currently afebrile, no leukocytosis, no tachycardia or hypotension, lactic acid WNL; no apparent sepsis UA- large leuk esterase, WBC >30, epithelial cells 20-30, bacteria 1+ Chest/ abd x-ray shows lung volumes diminished, mild bibasilar opacities which favor atelectasis, no free air or evidence of bowel obstruction Blood cx and urine cx pending; will check sputum cx Treated with Zosyn, cefepime, and 1 liter IVFs in ER Will change abx to Zosyn and vancomycin (due to hx MRSA) Consult infectious disease NPO until more alert CHRONIC RESPIRATORY FAILURE Usually on PRN O2 per prior hospitalization notes Currently requiring 3 liters NC May be hypoventilating due to lethargy CXR with bibasilar opacities favoring atelectasis Check sputum culture Incentive spirometry once awake Continue supplemental O2 per protocol CKD STAGE III Creat is at baseline Received 1 liter NSS in ER Monitor renal function Avoid nephrotoxins SIGMOID COLECTOMY FOR SIGMOID VOLVULUS Colostomy putting out green liquid stool No evidence obstruction on x-ray PAF Currently in sinus rhythm rate controlled; continue sotalol once awake INR subtherapeutic at 1.6 Continue Coumadin once awake enough to take PO SQ heparin until INR therapeutic Monitor INR DIASTOLIC CHF Prior echo EF 60-65% Appears mildly dry Received IVF's 1 liter in ER Hold Lasix for now Monitor volume status DM 2 Recent A1C 7.5 in 09/2016 Hold oral antidiabetic meds Insulin sliding scale coverage HYPERTENSION Stable; continue amlodipine and sotalol once more awake CAD Stable; continue aspirin, statin, beta homer once more awake DVT PROPHYLAXIS Continue Coumadin once more awake Heparin SQ until INR therapeutic CODE STATUS DNR per discussion with WALLACE Gould (cousin) via phone call ([phone] ) DISPOSITION Resides at [facility] Patient seen in collaboration with Dr. David. Please see his addendum. Attending Addendum Pt was seen and examined. Agreed with Francisca Rothman, assessment and plan. 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 Pt was admitted few months ago with similar symptoms that was due to urinary infection. Pt denies any chest pain, palpitation and dizziness. General- obese, I saw the pt after a few hours he was awake Head- atraumatic Eyes- PERRL, EOMI ENT- oropharynx clear Neck- supple, no JVD Lungs- Coarse breath sound Heart- regular rhythm, no murmur Abdomen- normal bowel sounds, soft Extremities- no calf tenderness, erythema in LLE Neuro- alert, oriented (with time, place and person ) PERRL, EOMI; no facial palsy; Skin- warm & dry A/P ALTERED MENTAL STATUS Possible related to infection due to UTI Hx of chronic indwelling kohli catheter with recurrent UTI CXR showed diminished lung volumes with suspected bibasilar atelectasis. POC lactic acid slightly elevated, no leukocytosis Received Zosyn and cefepime in ER Blood cx and urine cx pending will check repeat lactic acid and check procalcitoni Will change abx to IV Vanco an Zosyn Will consult ID Will continue monitor closely Lab, EKG and Imaging reviewed Please refer to Francisca NOYOLA documentation for other problems. Heather David MD VTE Prophylaxis VTE Risk Assessment Done? Y/N: Yes Risk Level: Moderate Given or contraindicated: Warfarin (Coumadin) Physical Exam (per Admitting): General Appearance: + obese, + pertinent finding (alert acutely ill 76 year old male, diaphoretic, lethargic, awakens to verbal stimulation but falls asleep during questioning, confused) Head: normocephalic, atraumatic Eyes: normal inspection, PERRL, EOMI ENT: hearing grossly normal, pharynx normal Neck: supple, trachea midline Respiratory/Chest: lungs clear, no respiratory distress, no accessory muscle use, + decreased breath sounds, + pertinent finding (saturating well on 3 liters NC) Cardiovascular: regular rate, rhythm, no murmur, normal peripheral pulses Abdomen/GI: normal bowel sounds, non tender, soft, + pertinent finding ( mildly distended but soft, colostomy with green liquid stool, stoma appears viable) Extremities/Musculoskelatal: no pedal edema Neurologic/Psych: + pertinent finding (lethargic, awaknens to verbal stimulation briefly but falls asleep during exam, confused, identifies he is in the hospital, but unable to state his name or birthday. follows commands. no dysarthria or facial droop. upper extremity 5/5 bilat. 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 multiple exchars on bilateral LE. no open wound or drainage.) Hospital Course ALTERED MENTAL STATUS-resolved Metabolic encephalopathy due to recurrent UTI in pt with chronic indwelling Kohli catheter; hx recurrent presentations for the same; No Apparent sepsis on admission Prior urine cx grew pseudomonas and resistant E. coli Recent admission for metabolic encephalopathy from infection- grew MRSA on sputum cx in 10/2016- treated with ceftaroline -> cefdinir Recently tx for LLE cellulitis with Augmentin- bilat LE back to baseline per PAGlendy Perry at [facility]'s note today Reported fever of 101.8 on 12/03/16 UA- large leuk esterase, WBC >30, epithelial cells 20-30, bacteria 1+ Blood cx -negative Urine cx-Pseudomonas -sensitive to Quinolones Sputum cx-MRSA :no respiratory symptoms Started on Zosyn, cefepime, and 1 liter IVFs in ER Changed to Zosyn and vancomycin (due to hx MRSA) Appreciate ID input-d/w ID ,can be discharged on oral Levaquin for 7 days in total Clinically much improved to be discharged CHRONIC RESPIRATORY FAILURE Usually on PRN O2 per prior hospitalization notes Currently requiring 3 liters NC May be hypoventilating due to lethargy CXR with bibasilar opacities favoring atelectasis Check sputum culture Incentive spirometry once awake Continue supplemental O2 per protocol Doubt any Pneumonia No issues now CKD STAGE III Creat is at baseline Received 1 liter NSS in ER Monitor renal function Avoid nephrotoxins Renal function normalized SIGMOID COLECTOMY FOR SIGMOID VOLVULUS Colostomy putting out green liquid stool No evidence obstruction on x-ray PAF Currently in sinus rhythm rate controlled; continue sotalol once awake INR subtherapeutic at 1.6 Continue Coumadin once awake enough to take PO SQ heparin until INR therapeutic Monitor INR-1.8 today DIASTOLIC CHF Prior echo EF 60-65% Appears mildly dry Received IVF's 1 liter in ER Hold Lasix for now Monitor volume status DM 2 Recent A1C 7.5 in 09/2016 Hold oral antidiabetic meds Insulin sliding scale coverage HYPERTENSION Stable; continue amlodipine and sotalol once more awake Restart BP medications BP remains on higher side CAD Stable; continue aspirin, statin, beta homer once more awake DVT PROPHYLAXIS Continue Coumadin once more awake Heparin SQ until INR therapeutic Continue Coumadin CODE STATUS DNR per discussion with WALLACE Gould (cousin) via phone call ([phone] )-as per admiting physician Will call and update as needed DISPOSITION Resides at [facility] Likely back to tomorrow Discussed with significant other Discharge to [facility] today Total time spent on discharge = 40 minutes This includes examination of the patient, discharge planning, medication reconciliation, and communication with other providers. Discharge Instructions Date of Service December 07, 2016. Admission Reason for Admission: Ams, Uti Discharge Discharge Diagnosis / Problem: Altered Mental Status due to UTI Discharge Goals Goal(s): Prevent Disease Progression Activity Recommendations Activity Level: Assistance Required Therapies: Physical Therapy, Occupational Therapy . Additional Information Patient informed of condition: Yes Advance Directives: No DNR: Yes Level of Care: Skilled Communicable Disease: No Prognosis: Stable Oxygen at (LPM): 3liters/min via NC Kohli Catheter: Yes Instructions / Follow-Up Instructions / Follow-Up As per Deysi xavier provider Current Hospital Diet Patient's current hospital diet: AHA Diet (Heart Healthy), Diabetes Type 2 Diet Discharge Diet Recommended Diet: AHA Diet (Heart Healthy), Diabetes Type 2 Diet Fluid Restriction: 1500 ml (6 cups) Pending Studies Studies pending at discharge: no Laboratory Results Hemoglobin A1c Test 09/28/16 22:17 Range/Units Estimated Average Glucose 169 mg/dl Hemoglobin A1c 7.5 H 4.5-5.6 % Medical Emergencies . Who to Call and When: Medical Emergencies: If at any time you feel your situation is an emergency, please call 911 immediately. . Non-Emergent Contact Non-Emergency issues call your: Primary Care Provider . 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 "Provider Documentation" section prepared by Bertha Rodriguez. . Core Measure Problem Core Measures: None <Electronically signed by Bertha Rodriguez M.D.> Additional Copies To Mina Enciso M.D.
--- NOTE | 2016-12-23 10:56 | EDITING REQUIRED CODING QUERY ---
CODING QUERY To promote full compliance with coding requirements relating to patient care, provider participation is requested in all cases of field education coordinator uncertainty. Please assist us with the question(s) below: Coding Question(s): CLARIFICATION NEEDED FOR DIAGNOSIS OF UTI. FINAL IMPRESSION IS UTI IN A PATIENT WITH CHRONIC INDWELLING COLON CATHETER. PLEASE CLARIFY BELOW: Physician's Response(s): (+ ) UTI DUE TO COLON CATHETER ( ) UTI NOT DUE TO COLON CATHETER ( ) UNKNOWN IF UTI IS DUE TO COLON ( ) OTHER (PLEASE SPECIFY): Thank you María Elena Sigala Principal Diagnosis: "_that condition established after study, to be chiefly responsible for occasioning the admission of the patient to the hospital for care." Co-Existing Principal Diagnosis: "_when two or more diagnoses equally meet the criteria for principal diagnosis as determined by the circumstances of admission, diagnostic work up, and/or therapy provided, and the Alphabetic Index, Tabular List, or another coding guideline does not provide sequencing direction, any one of the diagnoses may be sequenced first." "When the physician has documented what appears to be a current diagnosis in the body of the record, but has not included the diagnosis in the final diagnostic statement, the physician should be asked whether the diagnosis should be added." (Source [facility]oding [facility] 2 QTR90. p3-4)
[2017-04-11] MEDS ORDERED: AMLO-110 PO (05:24)
[2017-04-11] MEDS ORDERED: ASPI81TA28 PO (11:00)
[2017-04-11] MEDS ORDERED: METO2.5T PO (15:20)
[2017-04-11] MEDS ORDERED: POTA-74 PO (15:30)
[2017-04-11] MEDS ORDERED: POLY99.0 OPB (15:45)
[2017-04-11] MEDS ORDERED: SOTA80TA PO (16:09)
[2017-04-11] MEDS ORDERED: SENN-83 PO (16:40)
[2017-04-11] MEDS ORDERED: FERR325T5 PO (17:08)
[2017-04-11] MEDS ORDERED: FRS/40 PO (17:09)
[2017-04-11] MEDS ORDERED: LCTX PO (17:09)
[2017-04-11] MEDS ORDERED: TRAM-10 PO ×2 (17:33)
[2017-04-11] MEDS ORDERED: BISA-16 PO (17:33)
[2017-04-11] MEDS ORDERED: MOML PO (17:33)
[2017-04-11] MEDS ORDERED: NYSCR30 TOP (17:33)
[2017-04-11] MEDS ORDERED: LYR100 PO (17:33)
[2017-04-11] MEDS ORDERED: CMD25 PO (17:43)
[2017-04-16] MEDS ORDERED: CEFE2INJ2 IV ×2 (14:58→15:00)
[2017-04-16] MEDS ORDERED: VNCE1000 IV (15:03)
== END 2016-12-07 15:30 | DRG 698 ==
LOC: ENRESERVDT → ENRESERVTM → EDBD 09:58 → C.EDB 10:00 → C.MS2W 14:18 → EDBEDREQ 15:12
PROVIDERS: ADMIT Internal Medicine; ATTEND Internal Medicine
DX: T83.511A Infection and inflammatory reaction due to indwelling urethral catheter, initial encounter (principal); G93.41 Metabolic encephalopathy; J96.10 Chronic respiratory failure, unspecified whether with hypoxia or hypercapnia; I50.32 Chronic diastolic (congestive) heart failure; G82.20 Paraplegia, unspecified; I13.0 Hypertensive heart and chronic kidney disease with heart failure and stage 1 through stage 4 chronic kidney disease, or unspecified chronic kidney disease; N39.0 Urinary tract infection, site not specified; R41.82 Altered mental status, unspecified; I25.10 Atherosclerotic heart disease of native coronary artery without angina pectoris; I48.0 Paroxysmal atrial fibrillation; Z79.01 Long term (current) use of anticoagulants; E11.9 Type 2 diabetes mellitus without complications; N31.9 Neuromuscular dysfunction of bladder, unspecified; Z90.49 Acquired absence of other specified parts of digestive tract; Z82.49 Family history of ischemic heart disease and other diseases of the circulatory system; Z83.3 Family history of diabetes mellitus; Z82.3 Family history of stroke; Z80.42 Family history of malignant neoplasm of prostate; Z80.0 Family history of malignant neoplasm of digestive organs; Z79.82 Long term (current) use of aspirin; N18.3 Chronic kidney disease, stage 3 (moderate); Y82.9 Unspecified medical devices associated with adverse incidents

== ENCOUNTER 2017-05-29 14:03 | Inpatient (IN) | payer OTHER, MEDICARE ==
[~2017-05-29] VITALS: Ht 165.1 cm; Wt 112.0 kg
[~2017-05-29 14:03] MED LIST changes: -ACET-1256 PO; +ACET325T96 PO; -ALUM-76 PO; +AMLO-110 PO; -AMT10 PO; -ASPCH81X PO; +ASPI81TA28 PO; +CEFE2INJ2 IV; +CMD25 PO; -CRS10 PO; -CYM60 PO; -DICL1GEL34 TOP; +FRS/40 PO; -FURO-85 PO; -IPRASOL4 INH; +LCTX PO; -LRS20 PO; +LYR100 PO; -METF-384 PO; +METO2.5T PO; +NYSCR30 TOP; -OXYC-609 PO; +POLY99.0 OPB; +POTA-74 PO; -PREG75CA PO; -SALI0.6517 NAE; +SENN-83 PO; -SIME1CHW3 PO; -SODIENE PR; +SOTA80TA PO; +TRAM-10 PO; -TYL325X PO; +VNCE1000 IV; -WARF2TAB PO; -ZINC40OI13 TOP; -[UNRECOGNIZED DRUG - CODE] TOP
[2017-05-29] MEDS ORDERED: ALBUT/IPRATROP 3MG/0.5MG NEB 3 ML VIAL INH STA (14:17)
[2017-05-29] MEDS ORDERED: PIPERACILLIN/TAZOBACTAM 3.375 GM/100ML D5W IV STA (14:17)
--- NOTE | 2017-05-29 14:38 | DIAGNOSTIC IMAGING REPORT ---
CHEST ONE VIEW PORTABLE CLINICAL HISTORY: sob dyspnea COMPARISON STUDY: 04/11/2017 FINDINGS: Placement of PICC catheter in the right atrium. No evidence of pneumothorax. Developing parenchymal infiltrate left base. Right lung is clear. IMPRESSION: PICC catheter in the right atrium. No evidence pneumothorax. Early parenchymal infiltrate left base The above report was generated using voice recognition software. It may contain grammatical, syntax or spelling errors. Electronically signed by: Julian Vargas M.D. 05/29/2017 2:37 PM Dictated Date/Time: 05/29/2017 2:36 PM
[2017-05-29] MEDS ORDERED: PIPERACILL/TAZOBAC IV 3.375 GM in DEXTROSE 5% 100ML IV ONE (14:45)
[2017-05-29 15:07] LABS: BASO % 0.4 %; BASO ABS # 0.03 K/uL (0-0.2); COMPLETE YES; EOS % 6.9 %; IG% 2.6 %; LYMPH % 14.7 %; MEAN CELL VOLUME 78.9 fL (80-100); MEAN CORPUSCULAR HEMOGLOBIN 25.5 pg (25-34); MEAN CORPUSCULAR HGB CONC 32.4 g/dl (32-36); MEAN PLATELET VOLUME 9.9 fL (7.4-10.4); MONO % 9.3 %; NEUT % 66.1 %; PLATELET COUNT 259 K/uL (130-400); RED BLOOD COUNT 4.31 M/uL (4.7-6.1); WHITE BLOOD COUNT 8.14 K/uL (4.8-10.8)
[2017-05-29 15:18] LABS: PARTIAL THROMBOPLASTIN RATIO 1.7; PROTHROMBIN TIME (PATIENT) 21.6 SECONDS (9.0-12.0)
[2017-05-29] MEDS ORDERED: ACET-1256 PO (15:21)
[2017-05-29] MEDS ORDERED: IPRASOL4 INH (15:22)
[2017-05-29] MEDS ORDERED: HEPA100I10 FLUSH (15:27)
[2017-05-29] MEDS ORDERED: SODIINJ24 IV (15:27)
[2017-05-29] MEDS ORDERED: INSDGI SC ×4 (15:27→15:34)
[2017-05-29 15:28] LABS: ALT/SGPT 38 U/L (12-78); AST/SGOT 35 U/L (15-37); BLOOD UREA NITROGEN 29 mg/dl (7-18); BUN/CREATININE RATIO 19.9 (10-20); CALCIUM 8.8 mg/dl (8.5-10.1); CARBON DIOXIDE 31 mmol/L (21-32); CHLORIDE 90 mmol/L (98-107); CREATININE 1.47 mg/dl (0.60-1.40); GLUCOSE 148 mg/dl (70-99); POTASSIUM 3.5 mmol/L (3.5-5.1); SODIUM 129 mmol/L (136-145)
[2017-05-29 15:30] LABS: ALB/GLOB RATIO 0.4 (0.9-2); ALKALINE PHOSPHATASE 151 U/L (45-117)
[2017-05-29] MEDS ORDERED: VANC1INJ IV (15:32)
[2017-05-29] MEDS ORDERED: VANCOMYCIN INJ 2,500 MG in SODIUM CHLORIDE 0.9% 500ML 500 ML IV STA (15:35)
[2017-05-29] MEDS ORDERED: ATOR-24 PO (15:36)
[2017-05-29] MEDS ORDERED: DOXY1TAB6 PO (15:37)
[2017-05-29] MEDS ORDERED: NVLG SC (15:41)
--- NOTE | 2017-05-29 15:44 | EMERGENCY ROOM VISIT NOTE ---
History Report prepared by Victorino: Walter Mcclelland Under the Supervision of: Dr. Imer Casiano D.O. First contact with patient: 14:07 Chief Complaint: SHORTNESS OF BREATH Stated Complaint: SHORTNESS OF BREATH History of Present Illness The patient is a 77 year old male who presents to the Emergency Room with complaints of a worsening cough for the past couple of days. The patient states that he has been having a cold the past couple of days, and he has been having a runny nose as well, though he denies any sore throat. He notes that he is coughing up a yellow sputum. He reports that he just finished a course of antibiotics. Per the nursing notes, the patient has had increased lethargy and shortness of breath as well. The patient notes that he is currently on Coumadin. Source of History: patient Onset: a couple of days ago Position: other (global) Quality: other (cough) Timing: worsening Associated Symptoms: + SOB, No sorethroat Note: Associated symptoms: runny nose and lethargy Review of Systems See HPI for pertinent positives & negatives. A total of 10 systems reviewed and were otherwise negative. 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 (15) UTI (urinary tract infection) (16) UTI (urinary tract infection) (17) Warfarin anticoagulation Surgical Problems: (1) H/O inguinal hernia repair (2) H/O resection of large bowel (3) H/O sinus surgery (4) Status post hip hemiarthroplasty (5) Status post removal right hip prosthesis (6) Status post total knee replacement Family History Cerebral aneurysm BROTHER Colon cancer SISTER Diabetes mellitus MOTHER Heart disease FATHER MOTHER Hypertension FATHER Prostate cancer FATHER Stroke FATHER Social History Smoking Status: Former Smoker Alcohol Use: none Drug Use: none Marital Status: single Housing Status: lives alone, fdc Occupation Status: retired Current/Historical Medications Scheduled Acetaminophen (Tylenol), 1 TAB PO BID Amlodipine (Norvasc), 5 MG PO DAILY Aspirin (Aspirin Ec), 81 MG PO DAILY Atorvastatin (Lipitor), 40 MG PO HS Doxycycline Hyclate (Doxycycline Hyclate), 1 TAB PO BID Furosemide (Lasix), 40 MG PO QAM Heparin Sodium (Porcine) Lock (Heparin Lock Flush), 1 DOSE FLUSH DAILY Insulin Aspart (Novolog), 36 UNITS SC WM Insulin Glargine (Lantus), 42 UNITS SC HS Insulin Glargine (Lantus), 36 UNITS SC QAM Ipratropium-Albuterol (Duoneb), 1 TREATMENT INH Q4H Lactobacillus Acidophilus (Lactinex), 1 TAB PO BID Magnesium Hydroxide (Milk Of Magnesia), 30 ML PO PRN UD Metolazone (Zaroxolyn), 2.5 MG PO 2XWK Nystatin (Nystatin Cream), 1 APPLN TOP BID Pantoprazole Sodium (Protonix), 40 MG PO DAILY Polyvinyl Alcohol (Artificial Tears), 2 DROPS OPB QS Potassium Chloride (Potassium Chloride Er), 20 MEQ PO TID Pregabalin (Lyrica), 100 MG PO BID Sennosides-Docusate Sodium (Senexon-S), 1 TABS PO BID Sotalol Hcl (Sotalol Hcl), 80 MG PO DAILY Vancomycin HCl in Sodium Chlor (Vancomycin Hydrochloride/ 1-0.9 gm/250Ml-%), 1 GM IV Q72H Warfarin Sod (Coumadin), 2.5 MG PO DAILY Scheduled PRN Home O2 Therapy (Oxygen), 2 LITERS NA HS PRN for Shortness of Breath Tramadol (Ultram), 50 MG PO Q6 PRN for MOD-SEVERE PAIN 5-10 Miscellaneous Medications Sodium Chloride Flush (Normal Saline I.v. Flush), 20 ML IV Allergies Coded Allergies: Latex (Verified Allergy, Mild, UNSURE - FROM [facility], 05/29/17) Macrolides and Ketolides (Verified Allergy, Unknown, [facility], 12/04/16) Azithromycin (Verified Adverse Reaction, Mild, nausea, 05/29/17) with nausea and diarrhea Physical Exam Vital Signs Date Time Temp Pulse Resp B/P (MAP) Pulse Ox O2 Delivery O2 Flow Rate FiO2 05/29/17 14:16 94 Nasal Cannula 2.0 05/29/17 14:11 72 05/29/17 14:11 36.5 77 20 159/97 87 Room Air Physical Exam CONSTITUTIONAL/VITAL SIGNS: Reviewed / noted above. GENERAL: Generalized weakness. Cantrell catheter in place. Non-toxic in appearance. INTEGUMENTARY: Warm, dry, and [place]. HEAD: Normocephalic. EYES: without scleral icterus or trauma. ENT/OROPHARYNX: clear and moist. LYMPHADENOPATHY/NECK: Is supple without lymphadenopathy or meningismus. RESPIRATORY: Coarseness noted in the right lung base. CARDIOVASCULAR: Regular rate and rhythm. GI/ABDOMEN: Soft and nontender. No organomegaly or pulsatile mass. No rebound or guarding. Normal bowel sounds. EXTREMITIES: Lower extremity edema and other chronic skin changes. Warm and well perfused. BACK: No CVA tenderness. NEUROLOGICAL: Intact without focal deficits. PSYCHIATRIC: normal affect. MUSCULOSKELETAL: Normally developed with good muscle tone. Medical Decision & Procedures ER Provider Diagnostic Interpretation: Radiology results as stated below per my review and radiologist interpretation: CHEST ONE VIEW PORTABLE CLINICAL HISTORY: sob dyspnea COMPARISON STUDY: 04/11/2017 FINDINGS: Placement of PICC catheter in the right atrium. No evidence of pneumothorax. Developing parenchymal infiltrate left base. Right lung is clear. IMPRESSION: PICC catheter in the right atrium. No evidence pneumothorax. Early parenchymal infiltrate left base The above report was generated using voice recognition software. It may contain grammatical, syntax or spelling errors. Electronically signed by: Julian Vargas M.D. 05/29/2017 2:37 PM Dictated Date/Time: 05/29/2017 2:36 PM Laboratory Results 05/29/17 14:40 Red Blood Count 4.31, Mean Corpuscular Volume 78.9, Mean Corpuscular Hemoglobin 25.5, Mean Corpuscular Hemoglobin Concent 32.4, Mean Platelet Volume 9.9, Neutrophils (%) (Auto) 66.1, Lymphocytes (%) (Auto) 14.7, Monocytes (%) (Auto) 9.3, Eosinophils (%) (Auto) 6.9, Basophils (%) (Auto) 0.4, Neutrophils # (Auto) 5.38, Lymphocytes # (Auto) 1.20, Monocytes # (Auto) 0.76, Eosinophils # (Auto) 0.56, Basophils # (Auto) 0.03 05/29/17 14:40 Test 05/29/17 14:40 White Blood Count 8.14 K/uL (4.8-10.8) Red Blood Count 4.31 M/uL (4.7-6.1) Hemoglobin 11.0 g/dL (14.0-18.0) Hematocrit 34.0 % (42-52) Mean Corpuscular Volume 78.9 fL (80-100) Mean Corpuscular Hemoglobin 25.5 pg (25-34) Mean Corpuscular Hemoglobin Concent 32.4 g/dl (32-36) Platelet Count 259 K/uL (130-400) Mean Platelet Volume 9.9 fL (7.4-10.4) Neutrophils (%) (Auto) 66.1 % Lymphocytes (%) (Auto) 14.7 % Monocytes (%) (Auto) 9.3 % Eosinophils (%) (Auto) 6.9 % Basophils (%) (Auto) 0.4 % Neutrophils # (Auto) 5.38 K/uL (1.4-6.5) Lymphocytes # (Auto) 1.20 K/uL (1.2-3.4) Monocytes # (Auto) 0.76 K/uL (0.11-0.59) Eosinophils # (Auto) 0.56 K/uL (0-0.5) Basophils # (Auto) 0.03 K/uL (0-0.2) RDW Standard Deviation 48.7 fL (36.4-46.3) RDW Coefficient of Variation 16.8 % (11.5-14.5) Immature Granulocyte % (Auto) 2.6 % Immature Granulocyte # (Auto) 0.21 K/uL (0.00-0.02) Nucleated RBC Absolute Count (auto) 0.03 K/uL (0-0) Nucleated Red Blood Cells % 0.3 % Prothrombin Time 21.6 SECONDS (9.0-12.0) Prothromb Time International Ratio 2.0 (0.9-1.1) Activated Partial Thromboplast Time 44.6 SECONDS (21.0-31.0) Partial Thromboplastin Ratio 1.7 Anion Gap 8.0 mmol/L (3-11) Est Creatinine Clear Calc Drug Dose 50.9 ml/min Estimated GFR () 53.3 Estimated GFR (Non- 46.0 BUN/Creatinine Ratio 19.9 (10-20) Calcium Level 8.8 mg/dl (8.5-10.1) Total Bilirubin 0.3 mg/dl (0.2-1) Aspartate Amino Transf (AST/SGOT) 35 U/L (15-37) Alanine Aminotransferase (ALT/SGPT) 38 U/L (12-78) Alkaline Phosphatase 151 U/L (45-117) Total Creatine Kinase 87 U/L (39-308) Creatine Kinase MB 2.6 ng/ml (0.5-3.6) Creatine Kinase MB Ratio 3.0 (0-3.0) Troponin I < 0.015 ng/ml (0-0.045) Total Protein 8.6 gm/dl (6.4-8.2) Albumin 2.6 gm/dl (3.4-5.0) Globulin 6.0 gm/dl (2.5-4.0) Albumin/Globulin Ratio 0.4 (0.9-2) Chemistry Specimen Hemolysis Laboratory results as stated above per my review. Medications Administered Medications (Trade) Dose Ordered Sig/Betzy Route Start Time Stop Time Status Last Admin Dose Admin Albuterol/ Ipratropium (Duoneb) 3 ml NOW STAT INH 05/29/17 14:17 05/29/17 14:19 DC 05/29/17 14:37 3 ML Piperacillin Sod/ Tazobactam Sod (Zosyn Iv) 3.375 gm NOW STAT IV 05/29/17 14:17 05/29/17 14:19 DC 05/29/17 15:19 3.375 GM Heparin Sodium (Porcine) (Heparin 10 Unit/ ml 5 ml Flush) 5 ml STK-MED ONCE .ROUTE 05/29/17 15:16 05/29/17 15:17 DC 05/29/17 15:19 5 ML ECG Indication: SOB/dyspnea Rate (beats per minute): 70 Findings: T-wave inversion (Anterolateral) Comparison ECG Date: 04/11/17 Change: no significant change ED Course 1407: Previous medical records were reviewed. The patient was evaluated in room B8. A complete history and physical examination was performed. 1417: Zosyn 3.375gm IV, DuoNeb 3ml INH 1516: Hperain Sodum 5ml IV 1535: Vancomycin HCl 2500mg/ Sodium Chloride 550ml @ 200mls/hr IV 1540: Discussed the patient's case with Azar Rankin PA-C. The patient will be evaluated for further treatment and disposition. Medical Decision the differential was considered includes acute myocardial infarction, acute coronary syndrome, myocarditis, pericarditis, pericardial effusions /tamponad, esophageal perforation, pulmonary embolism, pneumonia, pneumothorax, cardiomyopathy, congestive heart, anemia , COPD/asthma exacerbation. This is a 77-year-old male who presents to the ED with a chief complaint of shortness of breath and productive cough for yellow sputum. The patient reports that his symptoms started several days ago. His symptoms worsened today. He was found to have oxygen saturations in the mid 80s at the [facility]. He was sent here for evaluation. The patient is found to have a left lower lobe infiltrate. His oxygen saturations were 87% on room air here. His exam reveals coarse breath sounds in the bilateral bases. CBC was unremarkable. INR is 2. The patient's exam was otherwise remarkable for some lower show any edema and chronic changes of the skin. The patient's kidney function was slightly elevated and his sodium was slightly low. He was treated with IV vancomycin and IV Zosyn. He'll be seen by the hospitalist for further evaluation. Medication Reconcilliation Current Medication List: was personally reviewed by me Blood Pressure Screening Patient's blood pressure: Elevated blood pressure Monitored by the hospitalist Consults Time Called: 1534 Consulting Physician: Azar Rankin PA-C Returned Call: 1540 Discussed the patient's case with Azar Rankin PA-C. The patient will be evaluated for further treatment and disposition. Impression Primary Impression: Pneumonia Additional Impression: Hypoxia Scribe Attestation The scribe's documentation has been prepared under my direction and personally reviewed by me in its entirety. I confirm that the note above accurately reflects all work, treatment, procedures, and medical decision making performed by me. Departure Information Dispostion Being Evaluated By Hospitalist Referrals No Doctor, Assigned (PCP) Patient Instructions My [facility] Problem Qualifiers
[2017-05-29] MEDS ORDERED: ALUMINUM/MAGNESIUM/SIMETH (MAALOX MAX) 30 ML UDC PO PRN (16:45)
[2017-05-29] MEDS ORDERED: ONDANSETRON INJ 2 MG/ML 2 ML VIAL IV PRN (16:45)
[2017-05-29] MEDS ORDERED: MAGNESIUM HYDROXIDE SUSP 30 ML UDC PO PRN (17:00)
[2017-05-29] MEDS ORDERED: PHARMACY GLYCEMIC MGMT CONSULT SCH (18:37)
--- NOTE | 2017-05-29 19:23 | Pharmacy Progress Note ---
Glycemic Control Intl Consult Date of Service May 29, 2017. Scope Glycemic Pharmacist consulted by Dian ROSE on 05/29/17 for glycemic control and to write orders per [facility] inpatient glycemic control protocol Objective Weight (Kilograms): 115.000 Accuchecks BSG (last 24hrs): Test 05/29/17 14:40 Random Glucose 148 mg/dl (70-99) Laboratory Data (last 24hrs) Test 05/29/17 14:40 Anion Gap 8.0 mmol/L BUN/Creatinine Ratio 19.9 Blood Urea Nitrogen 29 mg/dl Creatinine 1.47 mg/dl Potassium Level 3.5 mmol/L Sodium Level 129 mmol/L White Blood Count 8.14 K/uL Red Blood Count 4.31 M/uL Hemoglobin 11.0 g/dL Hematocrit 34.0 % Mean Corpuscular Volume 78.9 fL Mean Corpuscular Hemoglobin 25.5 pg Mean Corpuscular Hemoglobin Concent 32.4 g/dl Platelet Count 259 K/uL Mean Platelet Volume 9.9 fL Neutrophils (%) (Auto) 66.1 % Lymphocytes (%) (Auto) 14.7 % Monocytes (%) (Auto) 9.3 % Eosinophils (%) (Auto) 6.9 % Basophils (%) (Auto) 0.4 % Neutrophils # (Auto) 5.38 K/uL Lymphocytes # (Auto) 1.20 K/uL Monocytes # (Auto) 0.76 K/uL Eosinophils # (Auto) 0.56 K/uL Basophils # (Auto) 0.03 K/uL HbA1c 12.3% 04/11/17 Recent Pertinent Medications Outpatient Anti-diabetic Regimen: * Lantus 36 units Q AM + 42 units Q PM * Novolog 36 units w/ meals * A1c = 12.3 % 04/11/17 Risk Factors for Insulin Resistance: * Infection: possible pneumonia (with risk factors for resistance): vancomycin + Zosyn * Diet: currently NPO Assessment & Plan ASSESSMENT: 05/29/17 * Type 2 diabetic, admitted from [facility] today for increasing SOB and sputum production, likely pneumonia * Patient is known to our glycemic control service from prior hospitalizations. * Per last admission, would expect the patient to require 100+ units of insulin per day when tolerating a diet. * Interestingly, sometimes he requires very little insulin. His insulin requirement can very greatly. * Will begin a reduced dose of Lantus based upon NPO status and anticipated insulin needs displayed on 04/11/17 admission PLAN FOR INPATIENT GLYCEMIC CONTROL: * Lantus 25 units SQ BID * Novolog SQ ACHS and at 0200 tonight * Correction factor 12 mg/dl/unit * Carb ratio 1 unit per 4 grams CHO consumed * Goal range Low 120 mg/dL - High 160 mg/dL * Please note that the plan above was derived based on current level of insulin resistance and hospital stress. These recommendations are appropriate for inpatient admission only. Plan of care upon discharge will need to be reassessed to avoid potential outpatient hypo/hyperglycemia. Thank you.
[2017-05-29 19:25] VITALS: BP 159/104; PULSE 76; TEMP 36.6; O2SAT 94; Ht 165.1 cm; Wt 112.0 kg
--- NOTE | 2017-05-29 19:36 | DIAGNOSTIC IMAGING REPORT ---
CT OF THE HEAD WITHOUT CONTRAST CLINICAL HISTORY: Altered mental status. COMPARISON STUDY: Head CT October 12, 2016. CT DOSE: 1375.95 mGy.cm TECHNIQUE: Helical axial images of the head were obtained without IV contrast. Automated exposure control was utilized for the study. A dose lowering technique was utilized adhering to the principles of ALARA. FINDINGS: No acute intracranial hemorrhage, midline shift or mass effect is present. Ventricular system is normal. Basilar cisterns are patent. There are no extra-axial collections. Mcdonnell-white differentiation is maintained. There are no findings to suggest acute dural sinus thrombosis or acute territorial infarct. There are no significant calvarial abnormalities. There are postsurgical findings within the sinuses. A left maxillary sinus air-fluid level is noted. There is moderate polypoid mucosal thickening of the left frontal sinus. There is mild mucosal thickening of the remainder of the sinuses. This has progressed since exam of October 12, 2016. IMPRESSION: 1. No acute intracranial findings. 2. Progression of paranasal sinus disease which may reflect acute on chronic sinusitis with a left maxillary sinus air-fluid level. Electronically signed by: Chad Mcintyre M.D. 05/29/2017 7:34 PM Dictated Date/Time: 05/29/2017 7:32 PM
--- NOTE | 2017-05-29 19:41 | History and Physical ---
History & Physical Date & Time of Service: May 29, 2017 at 19:28 Chief Complaint: Shortness Of Breath Primary Care Physician: Lilo Davis M.D. 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 Patient was diagnosed with PNA earlier this week at [facility] and was started on a course of doxycycline. Patient continued to have a productive cough with yellow sputum and was found to be hypoxic in the low 80s on room air. Was also found to be lethargic by staff, which is not his baseline. Is usually A&Ox3 and talkative. Was sent to ER for further evaluation. In the ER, patient was found to have an O2 saturation in the high 80s on RA but increased to high 90s on 3 L NC. Does not require O2 during the day at [facility] (uses 2L at night). ROS limited to patient' s lethargy on exam. Endorses runny nose, cough, SOB. Denies fever, chills, headache, sore throat, CP, abd pain, nausea, vomiting, pain. Was last admitted in Mar with a UTI and cultures grew pseudomonas and proteus. 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 Was recommended to undergo an above knee amputation during an admission to [facility] but patient refused. Has been receiving vancomycin by PICC line at [facility] since last discharged from [facility] in late Mar. Follows with ID. 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 (13) Warfarin anticoagulation Status: Chronic Surgical Problems: (1) H/O inguinal hernia repair Status: Chronic (2) H/O resection of large bowel Permanent Comment: colostomy Status: Chronic (3) H/O sinus surgery Status: Chronic (4) Status post hip hemiarthroplasty Permanent Comment: right Status: Chronic (5) Status post removal right hip prosthesis Status: Chronic (6) Status post total knee replacement Permanent Comment: BL, with revision of left Status: Chronic Family History Cerebral aneurysm BROTHER Colon cancer SISTER Diabetes mellitus MOTHER Heart disease FATHER MOTHER Hypertension FATHER Prostate cancer FATHER Stroke FATHER Social History Smoking Status: Former Smoker Drug Use: none Marital Status: single Housing status: shelter Occupational Status: retired Immunizations History of Influenza Vaccine: Yes Influenza Vaccine Date: Apr 01, 2014 History of Tetanus Vaccine?: Yes Tetanus Immunization Date: May 13, 1996 History of Pneumococcal: Yes Pneumococcal Date: Jun 26, 2010 History of Hepatitis B Vaccine: No Multi-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, MRSA Allergies Coded Allergies: Latex (Verified Allergy, Mild, UNSURE - FROM [facility], 05/29/17) Macrolides and Ketolides (Verified Allergy, Unknown, [facility], 12/04/16) Azithromycin (Verified Adverse Reaction, Mild, nausea, 05/29/17) with nausea and diarrhea Home Medications Scheduled Acetaminophen (Tylenol), 1 TAB PO BID Amlodipine (Norvasc), 5 MG PO DAILY Aspirin (Aspirin Ec), 81 MG PO DAILY Atorvastatin (Lipitor), 40 MG PO HS Doxycycline Hyclate (Doxycycline Hyclate), 1 TAB PO BID Furosemide (Lasix), 40 MG PO QAM Heparin Sodium (Porcine) Lock (Heparin Lock Flush), 1 DOSE FLUSH DAILY Insulin Aspart (Novolog), 36 UNITS SC WM Insulin Glargine (Lantus), 42 UNITS SC HS Insulin Glargine (Lantus), 36 UNITS SC QAM Ipratropium-Albuterol (Duoneb), 1 TREATMENT INH Q4H Lactobacillus Acidophilus (Lactinex), 1 TAB PO BID Magnesium Hydroxide (Milk Of Magnesia), 30 ML PO PRN UD Metolazone (Zaroxolyn), 2.5 MG PO 2XWK Nystatin (Nystatin Cream), 1 APPLN TOP BID Pantoprazole Sodium (Protonix), 40 MG PO DAILY Polyvinyl Alcohol (Artificial Tears), 2 DROPS OPB QS Potassium Chloride (Potassium Chloride Er), 20 MEQ PO TID Pregabalin (Lyrica), 100 MG PO BID Sennosides-Docusate Sodium (Senexon-S), 1 TABS PO BID Sotalol Hcl (Sotalol Hcl), 80 MG PO DAILY Vancomycin HCl in Sodium Chlor (Vancomycin Hydrochloride/ 1-0.9 gm/250Ml-%), 1 GM IV Q72H Warfarin Sod (Coumadin), 2.5 MG PO DAILY Scheduled PRN Home O2 Therapy (Oxygen), 2 LITERS NA HS PRN for Shortness of Breath Tramadol (Ultram), 50 MG PO Q6 PRN for MOD-SEVERE PAIN 5-10 Miscellaneous Medications Sodium Chloride Flush (Normal Saline I.v. Flush), 20 ML IV Review of Systems Ten systems reviewed and negative except as noted in the HPI. Physical Exam Vital Signs Date Time Temp Pulse Resp B/P (MAP) Pulse Ox O2 Delivery O2 Flow Rate FiO2 05/29/17 17:49 63 20 130/84 93 Nasal Cannula 3.0 05/29/17 16:16 69 20 152/96 97 Nasal Cannula 3.0 05/29/17 14:16 94 Nasal Cannula 2.0 05/29/17 14:11 72 05/29/17 14:11 36.5 77 20 159/97 87 Room Air General Appearance: + mild distress (Somnolent but followed commands ) Head: normocephalic, atraumatic Eyes: normal inspection, PERRL, sclerae normal (conjunctival pallor ) ENT: normal ENT inspection, hearing grossly normal, pharynx normal (dry mucous membranes ) Neck: supple, thyroid normal, trachea midline Respiratory/Chest: chest non-tender, no respiratory distress, + decreased breath sounds, + crackles (Coarse crackles heard at L lung base. Otherwise diminished but clear lung sounds ), + pertinent finding (Breathing comfortably on NC O2) Cardiovascular: regular rate, rhythm, no murmur Abdomen/GI: non tender, soft, no organomegaly, + pertinent finding (Ostomy bag visualized in LLQ ) Genitourinary - Male: + pertinent finding (Kohli in place draining reddish yellow urine ) Back: normal inspection Extremities/Musculoskelatal: no calf tenderness, + pertinent finding (Chronic dermatitis to knees bilaterally. Multiple scabbed wounds ) Neurologic/Psych: no motor/sensory deficits (No motor, sensory deficits of BUE. Chronic paraplegia of BLE. ), + pertinent finding (Lethargic. Oriented to self but not time or location. ) Skin: normal color, warm/dry Diagnostics Laboratory Results Results Past 24 Hours Test 05/29/17 14:40 Range/Units White Blood Count 8.14 4.8-10.8 K/uL Red Blood Count 4.31 4.7-6.1 M/uL Hemoglobin 11.0 14.0-18.0 g/dL Hematocrit 34.0 42-52 % Mean Corpuscular Volume 78.9 80-100 fL Mean Corpuscular Hemoglobin 25.5 25-34 pg Mean Corpuscular Hemoglobin Concent 32.4 32-36 g/dl Platelet Count 259 130-400 K/uL Mean Platelet Volume 9.9 7.4-10.4 fL Neutrophils (%) (Auto) 66.1 % Lymphocytes (%) (Auto) 14.7 % Monocytes (%) (Auto) 9.3 % Eosinophils (%) (Auto) 6.9 % Basophils (%) (Auto) 0.4 % Neutrophils # (Auto) 5.38 1.4-6.5 K/uL Lymphocytes # (Auto) 1.20 1.2-3.4 K/uL Monocytes # (Auto) 0.76 0.11-0.59 K/uL Eosinophils # (Auto) 0.56 0-0.5 K/uL Basophils # (Auto) 0.03 0-0.2 K/uL RDW Standard Deviation 48.7 36.4-46.3 fL RDW Coefficient of Variation 16.8 11.5-14.5 % Immature Granulocyte % (Auto) 2.6 % Immature Granulocyte # (Auto) 0.21 0.00-0.02 K/uL Nucleated RBC Absolute Count (auto) 0.03 0-0 K/uL Nucleated Red Blood Cells % 0.3 % Prothrombin Time 21.6 9.0-12.0 SECONDS Prothromb Time International Ratio 2.0 0.9-1.1 Activated Partial Thromboplast Time 44.6 21.0-31.0 SECONDS Partial Thromboplastin Ratio 1.7 Sodium Level 129 136-145 mmol/L Potassium Level 3.5 3.5-5.1 mmol/L Chloride Level 90 98-107 mmol/L Carbon Dioxide Level 31 21-32 mmol/L Anion Gap 8.0 3-11 mmol/L Blood Urea Nitrogen 29 7-18 mg/dl Creatinine 1.47 0.60-1.40 mg/dl Est Creatinine Clear Calc Drug Dose 50.9 ml/min Estimated GFR () 53.3 Estimated GFR (Non- 46.0 BUN/Creatinine Ratio 19.9 10-20 Random Glucose 148 70-99 mg/dl Osmolality 284 280-300 mOsm/kg Calcium Level 8.8 8.5-10.1 mg/dl Total Bilirubin 0.3 0.2-1 mg/dl Aspartate Amino Transf (AST/SGOT) 35 15-37 U/L Alanine Aminotransferase (ALT/SGPT) 38 12-78 U/L Alkaline Phosphatase 151 45-117 U/L Total Creatine Kinase 87 39-308 U/L Creatine Kinase MB 2.6 0.5-3.6 ng/ml Creatine Kinase MB Ratio 3.0 0-3.0 Troponin I < 0.015 0-0.045 ng/ml Total Protein 8.6 6.4-8.2 gm/dl Albumin 2.6 3.4-5.0 gm/dl Globulin 6.0 2.5-4.0 gm/dl Albumin/Globulin Ratio 0.4 0.9-2 Procalcitonin 0.17 0-0.5 ng/ml Chemistry Specimen Hemolysis Microbiology Results 05/29/17 Blood Culture, Received Pending 05/29/17 Blood Culture, Received Pending Diagnostic Radiology CT head: IMPRESSION: 1. No acute intracranial findings. 2. Progression of paranasal sinus disease which may reflect acute on chronic sinusitis with a left maxillary sinus air-fluid level. CXR: IMPRESSION: PICC catheter in the right atrium. No evidence pneumothorax. Early parenchymal infiltrate left base L Lower extremity CT: IMPRESSION: 1. Status post constrained total left knee arthroplasty. Hardware intact. No periprosthetic fracture or lucency. Cortical irregularity of the distal shaft of the left femur and the proximal shaft of the left tibia is likely chronic and related to remodeling. Study compromised due to streak artifact from the hardware. 2. Persistent gas within the left knee joint which was shown on radiographs of April 14, 2017. In the absence of recent intervention or open wound, this is concerning for an infectious process with septic arthritis. 3. Fluid attenuation along the anterior superior aspect of the joint space. This could reflect post surgical change or a fluid collection. Superimposed infection cannot be excluded on this exam. 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 HCAP Pneumonia: -Productive cough, SOB, hypoxia -CXR with parenchymal infiltrate left base -IV vanc and zosyn initiated in ER. Continue therapies -Peripheral, PICC line and sputum cultures pending -Duonebs, supplemental O2 Hypoxia: -Likely 2/2 PNA -Does not require O2 at shelter besides 2L qHS -Saturating in mid-high 90s on 3L NC -Wean when tolerated Altered mental status: -Likely metabolic encephalopathy 2/2 infection, possibly hyponatremia -Per shelter, patient is A&O x 3, communicative -Neuro exam limited by patient's lethargy -Able to follow commands and move BUE -CT head normal -Monitor closely Hyponatremia: -Seems to be chronic, 2/2 poor PO intake -Serum osm normal, urine osm pending -NSS at 75 mL/hr overnight -Na recheck ordered this evening H/o recurrent UTIs: -Indwelling catheter in setting of neurogenic bladder -Kohli draining cloudy reddish urine -Replaced catheter -UA and urine cath culture pending Chronic infection of L knee prosthesis: -Longstanding MRSA infection of knee -Has refused above knee amputation suggested previously -Receiving IV vanc by PICC line at [facility] -Followed by out-patient ID -LLE CT shows stable infection in joint -IV vanc -ID consult DM II: uncontrolled -Hgb a1c of 12.3 in Mar 2017 -Glycemic consult placed -BSG checks AC HS Paroxysmal A Fib: -NSR on EKG, no CP, palpitations -Cont home sotalol -INR is therapeutic at 2 -Continue home dose coumadin CAD: -Stable, no CP -Cont baby aspirin, statin DVT Ppx: On coumadin Code status: FULL, as per my discussion with shelter PCP: Ryan Dispo: -PT/OT/speech eval -Discharge planning back to [facility] once medically stable Patient seen in collaboration with Dr. Michael. Please see addendum. Attending physician Dr Michael addendum I have seen and examined the patient with EVIE Calderon and agree with the assessment and plan as above. This is a 77 year old M shortness of breath, cough with sputum, hypoxia, and diminished mental status with multiple sources of infection risks. Patient was last seen in April 2017 in this hospital with history of chronic antibiotic suppression for septic left knee prosthesis for which he was discharged with a PICC line for IV Vancomycin. CT lower extremity without worsening findings for septic arthritis compared to previous hospital admission. Also history of paralysis below the waist and has neurogenic bladder with chronic indwelling kohli. Patient now with new onset hyponatremia compared to inpatient labs on last admission in April but it is unclear whether this is acute or chronic hyponatremia lasting for more than 72 hours. Repeat serum sodium stable from 129 to 130. Cultures sent from peripheral blood and PICC line and urine. Patient requiring broad spectrum antibiotics. Infectious disease consult requested Level of Care Telemetry Resuscitation Status FULL RESUSCITATION VTE Prophylaxis VTE Risk Assessment Done? Y/N: Yes Risk Level: Moderate Given or contraindicated: Warfarin (Coumadin) Social Service Consult [facility]
--- NOTE | 2017-05-29 19:48 | DIAGNOSTIC IMAGING REPORT ---
CT OF THE LEFT KNEE WITHOUT CONTRAST CLINICAL HISTORY: Chronic left knee prosthesis infection. COMPARISON STUDY: Left knee ultrasound April 13, 2017 and left knee radiographs April 14, 2017. TECHNIQUE: Axial images of the left knee were obtained without IV contrast. Sagittal and coronal reconstructions were viewed. FINDINGS: Alignment of the constrained total left knee arthroplasty is anatomic. There is no periprosthetic fracture or lucency. Hardware is intact. There is a moderate-sized left knee joint effusion. There is a moderate amount of gas within the joint space. This was shown on radiographs of April 14, 2017. Cortical irregularity of the distal shaft of the left femur and proximal shaft of the left fibula is likely chronic. This is unchanged from earlier studies. Evaluation of the left knee is difficult due to streak artifact from the hardware. Note is made of a fluid attenuation anterior superior to the joint space. This measures approximately 5 x 3.3 cm. IMPRESSION: 1. Status post constrained total left knee arthroplasty. Hardware intact. No periprosthetic fracture or lucency. Cortical irregularity of the distal shaft of the left femur and the proximal shaft of the left tibia is likely chronic and related to remodeling. Study compromised due to streak artifact from the hardware. 2. Persistent gas within the left knee joint which was shown on radiographs of April 14, 2017. In the absence of recent intervention or open wound, this is concerning for an infectious process with septic arthritis. 3. Fluid attenuation along the anterior superior aspect of the joint space. This could reflect post surgical change or a fluid collection. Superimposed infection cannot be excluded on this exam. Electronically signed by: Chad Mcintyre M.D. 05/29/2017 7:46 PM Dictated Date/Time: 05/29/2017 7:35 PM
[2017-05-29] MEDS ORDERED: VANCOMYCIN CONSULT ACTIVE PRN (20:09)
[2017-05-29] MEDS ORDERED: PIPERACILL/TAZOBAC CONSULT ACTIVE PRN (20:15)
[2017-05-29] MEDS: SODIUM CHLORIDE 0.9% 1000ML 1,000 ML IV SCH (20:22)
[2017-05-29] MEDS: ALBUT/IPRATROP 3MG/0.5MG NEB 3 ML VIAL INH SCH (20:48)
[2017-05-29 20:50] VITALS: PULSE 78; O2SAT 93
[2017-05-29] MEDS ORDERED: INSULIN ASPART 100 UNITS/ML 3 ML PEN SC SCH (21:00)
[2017-05-29] MEDS ORDERED: INSULIN GLARGINE SOLOSTAR 100 UNITS/ML 3 ML PEN SC SCH (21:00)
[2017-05-29 21:37] LABS: URINE APPEARANCE CLEAR (CLEAR); URINE BILIRUBIN NEG (NEG); URINE COLOR YELLOW; URINE EPITHELIAL CELL AUTO >30 /lpf (0-5); URINE NITRITE NEG (NEG); URINE SPECIFIC GRAVITY 1.009 (1.000-1.030); UROBILINOGEN NEG (NEG)
[2017-05-29] MEDS: WARFARIN SOD 2.5 MG TAB PO SCH (21:37)
[2017-05-29] MEDS: ATORVASTATIN 40 MG TAB PO SCH (21:37)
[2017-05-29] MEDS: NYSTATIN CR 15 GM TUBE EXT SCH (21:38)
[2017-05-29] MEDS: DOCUSATE SODIUM/SENNA 50/8.6MG TAB PO SCH (21:38)
[2017-05-29] MEDS: PIPERACILL/TAZOBAC IV 3.375 GM in DEXTROSE 5% 100ML IV SCH (21:41)
[2017-05-29 21:49] LABS: MANUAL MICROSCOPIC REQUIRED? NO; REVIEW REQ? YES
[2017-05-29] MEDS: INSULIN ASPART 100 UNITS/ML 3 ML PEN SC SCH (23:59)
[2017-05-30] VITALS (15 sets, daily range): BP systolic 117–151; BP diastolic 73–85; PULSE 67–76; TEMP 36.5–36.9; O2SAT 91–97
[2017-05-30] MEDS ORDERED: INSULIN ASPART 100 UNITS/ML 3 ML PEN SC ONE (02:00)
[2017-05-30 02:08] LABS: BASO % 0.2 %; BASO ABS # 0.02 K/uL (0-0.2); COMPLETE YES; EOS % 5.2 %; IG% 1.5 %; LYMPH % 10.6 %; LYMPH ABS # 0.99 K/uL (1.2-3.4); MEAN CELL VOLUME 79.2 fL (80-100); MEAN CORPUSCULAR HEMOGLOBIN 24.8 pg (25-34); MEAN CORPUSCULAR HGB CONC 31.3 g/dl (32-36); MONO % 8.2 %; NEUT % 74.3 %; PLATELET COUNT 210 K/uL (130-400); RED BLOOD COUNT 4.04 M/uL (4.7-6.1); WHITE BLOOD COUNT 9.31 K/uL (4.8-10.8)
[2017-05-30 02:18] LABS: PARTIAL THROMBOPLASTIN RATIO 1.7; PROTHROMBIN TIME (PATIENT) 21.6 SECONDS (9.0-12.0)
[2017-05-30 02:25] LABS: BLOOD UREA NITROGEN 28 mg/dl (7-18); BUN/CREATININE RATIO 20.9 (10-20); CALCIUM 8.7 mg/dl (8.5-10.1); CARBON DIOXIDE 34 mmol/L (21-32); CHLORIDE 94 mmol/L (98-107); CREATININE 1.32 mg/dl (0.60-1.40); GLUCOSE 109 mg/dl (70-99); MAGNESIUM 1.8 mg/dl (1.8-2.4); SODIUM 134 mmol/L (136-145)
[2017-05-30] MEDS ORDERED: POTASSIUM CHLORIDE 10 MEQ TABCR PO ONE (04:30)
[2017-05-30] MEDS: PIPERACILL/TAZOBAC IV 3.375 GM in DEXTROSE 5% 100ML IV SCH ×3 (05:42→21:59)
[2017-05-30] MEDS: INSULIN ASPART 100 UNITS/ML 3 ML PEN SC SCH ×3 (06:00→16:25)
[2017-05-30] MEDS: ALBUT/IPRATROP 3MG/0.5MG NEB 3 ML VIAL INH SCH ×4 (07:37→20:00)
[2017-05-30] MEDS: SODIUM CHLORIDE 0.9% 1000ML 1,000 ML IV SCH ×2 (07:45→20:11)
[2017-05-30] MEDS: DOCUSATE SODIUM/SENNA 50/8.6MG TAB PO SCH ×2 (07:45→20:07)
[2017-05-30] MEDS: PANTOprazole SOD 40 MG TAB PO SCH (07:46)
[2017-05-30] MEDS: SOTALOL HCL 80 MG TAB PO SCH (07:46)
[2017-05-30] MEDS: ASPIRIN 81 MG ECTAB PO SCH (07:46)
[2017-05-30] MEDS: AMLODIPINE BESYLATE 5 MG TAB PO SCH (07:46)
[2017-05-30] MEDS: NYSTATIN CR 15 GM TUBE EXT SCH ×2 (07:46→20:07)
[2017-05-30] MEDS: POTASSIUM CHLORIDE 20 MEQ TABCR PO SCH ×3 (09:07→20:06)
[2017-05-30] MEDS: INSULIN GLARGINE SOLOSTAR 100 UNITS/ML 3 ML PEN SC SCH ×2 (09:08→20:55)
--- NOTE | 2017-05-30 11:12 | Pharmacy Progress Note ---
Pharmacy Glycemic Short Note 2 Date of Service May 30, 2017. OUTPATIENT ANTIDIABETIC REGIMEN: * Lantus 36 units Q AM + 42 units Q PM * Novolog 36 units w/ meals * A1c = 12.3 % 04/11/17 ASSESSMENT: * Type 2 diabetic, admitted from [facility] for increasing SOB and sputum production, likely pneumonia, receiving vanco and zosyn * Patient is known to our glycemic control service from prior hospitalizations. * Per last admission, would expect the patient to require 100+ units of insulin per day when tolerating a diet. * Interestingly, sometimes he requires very little insulin. His insulin requirement can very greatly. * Reduced dose of Lantus based upon NPO status was initiated on admission. * AM fasting BSG slightly below goal range @ 109 mg/dl. Additionally, his A1c is 12.3% so this normal BSG may feel hypo to him. * Will further reduce Lantus and continue to titrate based on BSG trends Item Value Date Time Bedside Glucose 109 mg/dl H 05/30/17 0557 Bedside Glucose 119 mg/dl H 05/30/17 0151 Bedside Glucose 146 mg/dl H 05/29/17 2347 Bedside Glucose 133 mg/dl H 05/29/172019 PLAN FOR INPATIENT GLYCEMIC CONTROL: * Basal insulin: decrease dose * Lantus 15 units SQ BID * Bolus insulin * NovoLog per scale ACHS or Q6hrs while NPO * Goal Range: Low 120 mg/dL - High 160 mg/dL * Correction Factor: 12 mg/dL/unit * Nutritional / Prandial insulin per carb ratio of 1 unit per 4 grams CHO consumed
--- NOTE | 2017-05-30 13:32 | Orthopedic Consultation ---
Orthopedic Consultation Date of Consultation: May 30, 2017. Attending Physician: Charo Monsalve DO Reason for Consultation: Chronic left total knee infection History of Present Illness Patient is a 77-year-old male with fairly extensive past medical history. He is previously undergone a distal femoral replacement total knee arthroplasty. This is known to have a chronic infection. At last evaluation in April options were discussed with him. The only surgical intervention would be for a amputation which as high as stem goes in his knee would amount to a hip disarticulation. He elected for chronic IV antibiotic suppression. Currently the patient is somnolent and not answering questions. History is gathered from the chart. Past Medical/Surgical History Medical Problems: (1) Abdominal pain Status: Acute (2) Altered mental status Status: Acute (3) Altered mental status Status: Acute (4) Altered mental status Status: Acute (5) Altered mental status Status: Acute (6) Diffuse abdominal pain Status: Acute (7) Dislodged Cantrell catheter Status: Acute (8) Fever Status: Acute (9) Hematuria Status: Acute (10) Hyperglycemia Status: Acute (11) Hyperglycemia Status: Acute (12) Hypomagnesemia Status: Acute (13) Hyponatremia Status: Acute (14) Hypoxia Status: Acute (15) Hypoxia Status: Acute (16) Hypoxia Status: Acute (17) Hypoxia Status: Acute (18) Lactic acid acidosis Status: Acute (19) Left lower lobe pneumonia Status: Acute (20) Leukocytosis Status: Acute (21) Metabolic encephalopathy Status: Acute (22) Pneumonia Status: Acute (23) Pneumonia Status: Acute (24) Renal failure Status: Acute (25) Renal insufficiency Status: Acute (26) RUQ abdominal pain Status: Acute (27) Sepsis Status: Acute (28) Sigmoid volvulus Status: Acute (29) Sigmoid volvulus Status: Acute (30) UTI (urinary tract infection) Status: Acute (31) UTI (urinary tract infection) Status: Acute (32) UTI (urinary tract infection) Status: Acute (33) UTI (urinary tract infection) Status: Acute (34) UTI (urinary tract infection) Status: Acute Family History Cerebral aneurysm BROTHER Colon cancer SISTER Diabetes mellitus MOTHER Heart disease FATHER MOTHER Hypertension FATHER Prostate cancer FATHER Stroke FATHER Social History Smoking Status: Former Smoker Drug Use: none Marital Status: single Housing Status: lives alone, shelter Occupation Status: retired Allergies Coded Allergies: Latex (Verified Allergy, Mild, UNSURE - FROM [facility], 05/29/17) Macrolides and Ketolides (Verified Allergy, Unknown, [facility]KN, 12/04/16) Azithromycin (Verified Adverse Reaction, Mild, nausea, 05/29/17) with nausea and diarrhea Home Medications Scheduled Acetaminophen (Tylenol), 1 TAB PO BID Amlodipine (Norvasc), 5 MG PO DAILY Aspirin (Aspirin Ec), 81 MG PO DAILY Atorvastatin (Lipitor), 40 MG PO HS Doxycycline Hyclate (Doxycycline Hyclate), 1 TAB PO BID Furosemide (Lasix), 40 MG PO QAM Heparin Sodium (Porcine) Lock (Heparin Lock Flush), 1 DOSE FLUSH DAILY Insulin Aspart (Novolog), 36 UNITS SC WM Insulin Glargine (Lantus), 42 UNITS SC HS Insulin Glargine (Lantus), 36 UNITS SC QAM Ipratropium-Albuterol (Duoneb), 1 TREATMENT INH Q4H Lactobacillus Acidophilus (Lactinex), 1 TAB PO BID Magnesium Hydroxide (Milk Of Magnesia), 30 ML PO PRN UD Metolazone (Zaroxolyn), 2.5 MG PO 2XWK Nystatin (Nystatin Cream), 1 APPLN TOP BID Pantoprazole Sodium (Protonix), 40 MG PO DAILY Polyvinyl Alcohol (Artificial Tears), 2 DROPS OPB QS Potassium Chloride (Potassium Chloride Er), 20 MEQ PO TID Pregabalin (Lyrica), 100 MG PO BID Sennosides-Docusate Sodium (Senexon-S), 1 TABS PO BID Sotalol Hcl (Sotalol Hcl), 80 MG PO DAILY Vancomycin HCl in Sodium Chlor (Vancomycin Hydrochloride/ 1-0.9 gm/250Ml-%), 1 GM IV Q72H Warfarin Sod (Coumadin), 2.5 MG PO DAILY Scheduled PRN Home O2 Therapy (Oxygen), 2 LITERS NA HS PRN for Shortness of Breath Tramadol (Ultram), 50 MG PO Q6 PRN for MOD-SEVERE PAIN 5-10 Miscellaneous Medications Sodium Chloride Flush (Normal Saline I.v. Flush), 20 ML IV Current Inpatient Medications Current Inpatient Medications Medications (Trade) Dose Ordered Sig/Betzy Route Start Time Stop Time Status Last Admin Dose Admin Albuterol/ Ipratropium (Duoneb) 3 ml QIDR INH 05/29/17 20:00 06/28/17 19:59 05/30/17 11:12 3 ML Vancomycin HCl (Consult) 1 ea UD PRN N/A 05/29/17 20:09 06/28/17 20:08 Miscellaneous Information (Consult Glycemic Management Pharmacy) 1 ea UD N/A 05/29/17 18:37 06/28/17 18:36 Al Hydrox/Mg Hydrox/Simethicone (Maalox Max Susp) 15 ml Q4H PRN PO 05/29/17 16:45 06/28/17 16:44 Ondansetron HCl (Zofran Inj) 4 mg Q6H PRN IV 05/29/17 16:45 06/28/17 16:44 Sodium Chloride 1,000 ml @ 75 mls/hr [id number] IV 05/29/17 19:24 06/28/17 19:23 05/30/17 07:45 75 MLS/HR Amlodipine Besylate (Norvasc Tab) 5 mg DAILY PO 05/30/17 09:00 06/29/17 08:59 05/30/17 07:46 5 MG Aspirin (Ecotrin Tab) 81 mg DAILY PO 05/30/17 09:00 06/29/17 08:59 05/30/17 07:46 81 MG Atorvastatin Calcium (Lipitor Tab) 40 mg HS PO 05/29/17 21:00 06/28/17 20:59 05/29/17 21:37 40 MG Magnesium Hydroxide (Milk Of Magnesia Susp) 30 ml DAILY PRN PO 05/29/17 17:00 06/28/17 16:59 Nystatin (Mycostatin Crm) 1 appln BID EXT 05/29/17 21:00 06/28/17 20:59 05/30/17 07:46 1 APPLN Pantoprazole Sodium (Protonix Tab) 40 mg DAILY PO 05/30/17 09:00 06/29/17 08:59 05/30/17 07:46 40 MG Senna/Docusate Sodium (Senokot S Tab) 1 tab BID PO 05/29/17 21:00 06/28/17 20:59 05/30/17 07:45 1 TAB Sotalol HCl (Betapace Tab) 80 mg DAILY PO 05/30/17 09:00 06/29/17 08:59 05/30/17 07:46 80 MG Warfarin Sodium (Coumadin Tab) 2.5 mg DAILY@1600 PO 05/29/17 21:00 06/28/17 20:59 05/29/17 21:37 2.5 MG Piperacillin Sod/ Tazobactam Sod (Consult) 1 ea UD PRN N/A 05/29/17 20:15 06/28/17 20:14 Piperacillin Sod/ Tazobactam Sod 3.375 gm/Dextrose 115 ml @ 28.75 mls/ hr Q8H IV 05/29/17 22:00 06/05/17 21:59 05/30/17 05:42 28.75 MLS/HR Insulin Aspart (novoLOG ASPART) SLIDING SCALE Q6 SC 05/30/17 00:00 06/29/17 00:00 Heparin Sodium (Porcine) (Heparin 10 Unit/ ml 5 ml Flush) 5 ml PRN PRN FLUSH 05/30/17 01:00 06/29/17 00:59 Insulin Glargine (Lantus Solostar Pen) 15 units BID SC 05/30/17 09:00 06/29/17 08:59 05/30/17 09:08 15 UNITS Potassium Chloride (Klor-Con Tab) 40 meq Q6H PO 05/30/17 08:30 05/30/17 20:31 05/30/17 09:07 40 MEQ Physical Exam Date Time Temp Pulse Resp B/P (MAP) Pulse Ox O2 Delivery O2 Flow Rate FiO2 05/30/17 12:00 95 Nasal Cannula 2.0 05/30/17 11:18 36.9 67 20 134/77 (96) 95 Nasal Cannula 2.0 05/30/17 11:13 70 18 91 Nasal Cannula 2.0 05/30/17 08:00 95 Nasal Cannula 2.0 05/30/17 08:00 95 Nasal Cannula 2.0 05/30/17 07:38 73 18 95 Nasal Cannula 3.0 05/30/17 07:36 36.8 71 19 151/85 (107) 96 Nasal Cannula 3.0 05/30/17 04:40 36.9 70 18 128/74 (92) 94 Nasal Cannula 3.0 05/30/17 04:00 Nasal Cannula 3.0 05/30/17 00:00 36.5 76 20 117/78 (91) 94 Nasal Cannula 3.0 05/30/17 00:00 94 Nasal Cannula 3.0 05/29/17 20:50 78 20 93 Nasal Cannula 3.0 05/29/17 19:25 36.6 76 18 159/104 94 Nasal Cannula 3.0 05/29/17 17:49 63 20 130/84 93 Nasal Cannula 3.0 05/29/17 16:16 69 20 152/96 97 Nasal Cannula 3.0 05/29/17 14:16 94 Nasal Cannula 2.0 05/29/17 14:11 72 05/29/17 14:11 36.5 77 20 159/97 87 Room Air Left lower extremity: There is a well-healed anterior surgical scar. There is chronic venous stasis type changes over the anterior aspect of the tibia. There is swelling within the knee. No overt erythema over the knee. There is mild erythema over the anterior aspect the tibia as well as medially over the femur. He appears to have some pain with passive range of motion but is not currently following commands General Appearance: + pertinent finding (somnolent) Head: normocephalic ENT: normal ENT inspection Neck: supple Laboratory Results Last 24 Hours Test 05/29/17 14:40 05/29/17 20:20 05/29/17 20:56 05/29/17 21:00 White Blood Count 8.14 K/uL Red Blood Count 4.31 M/uL Hemoglobin 11.0 g/dL Hematocrit 34.0 % Mean Corpuscular Volume 78.9 fL Mean Corpuscular Hemoglobin 25.5 pg Mean Corpuscular Hemoglobin Concent 32.4 g/dl Platelet Count 259 K/uL Mean Platelet Volume 9.9 fL Neutrophils (%) (Auto) 66.1 % Lymphocytes (%) (Auto) 14.7 % Monocytes (%) (Auto) 9.3 % Eosinophils (%) (Auto) 6.9 % Basophils (%) (Auto) 0.4 % Neutrophils # (Auto) 5.38 K/uL Lymphocytes # (Auto) 1.20 K/uL Monocytes # (Auto) 0.76 K/uL Eosinophils # (Auto) 0.56 K/uL Basophils # (Auto) 0.03 K/uL RDW Standard Deviation 48.7 fL RDW Coefficient of Variation 16.8 % Immature Granulocyte % (Auto) 2.6 % Immature Granulocyte # (Auto) 0.21 K/uL Nucleated RBC Absolute Count (auto) 0.03 K/uL Nucleated Red Blood Cells % 0.3 % Prothrombin Time 21.6 SECONDS Prothromb Time International Ratio 2.0 Activated Partial Thromboplast Time 44.6 SECONDS Partial Thromboplastin Ratio 1.7 Sodium Level 129 mmol/L 130 mmol/L Potassium Level 3.5 mmol/L Chloride Level 90 mmol/L Carbon Dioxide Level 31 mmol/L Anion Gap 8.0 mmol/L Blood Urea Nitrogen 29 mg/dl Creatinine 1.47 mg/dl Est Creatinine Clear Calc Drug Dose 50.9 ml/min Estimated GFR () 53.3 Estimated GFR (Non- 46.0 BUN/Creatinine Ratio 19.9 Random Glucose 148 mg/dl Osmolality 284 mOsm/kg Calcium Level 8.8 mg/dl Total Bilirubin 0.3 mg/dl Aspartate Amino Transf (AST/SGOT) 35 U/L Alanine Aminotransferase (ALT/SGPT) 38 U/L Alkaline Phosphatase 151 U/L Total Creatine Kinase 87 U/L Creatine Kinase MB 2.6 ng/ml Creatine Kinase MB Ratio 3.0 Troponin I < 0.015 ng/ml Total Protein 8.6 gm/dl Albumin 2.6 gm/dl Globulin 6.0 gm/dl Albumin/Globulin Ratio 0.4 Procalcitonin 0.17 ng/ml Chemistry Specimen Hemolysis Bedside Glucose 133 mg/dl Urine Color YELLOW Urine Appearance CLEAR Urine pH 6.0 Urine Specific Harbert 1.009 Urine Protein NEG Urine Glucose (UA) NEG Urine Ketones NEG Urine Occult Blood 3+ Urine Nitrite NEG Urine Bilirubin NEG Urine Urobilinogen NEG Urine Leukocyte Esterase MODERATE Urine WBC (Auto) 10-30 /hpf Urine RBC (Auto) 10-30 /hpf Urine Hyaline Casts (Auto) 5-10 /lpf Urine Epithelial Cells (Auto) >30 /lpf Urine Bacteria (Auto) NEG Urine Renal Epithelial Cells /lpf Urine Osmolality 240 mOms/kg Test 05/29/17 23:47 05/30/17 01:51 05/30/17 01:57 05/30/17 05:57 Bedside Glucose 146 mg/dl 119 mg/dl 109 mg/dl White Blood Count 9.31 K/uL Red Blood Count 4.04 M/uL Hemoglobin 10.0 g/dL Hematocrit 32.0 % Mean Corpuscular Volume 79.2 fL Mean Corpuscular Hemoglobin 24.8 pg Mean Corpuscular Hemoglobin Concent 31.3 g/dl Platelet Count 210 K/uL Mean Platelet Volume 9.0 fL Neutrophils (%) (Auto) 74.3 % Lymphocytes (%) (Auto) 10.6 % Monocytes (%) (Auto) 8.2 % Eosinophils (%) (Auto) 5.2 % Basophils (%) (Auto) 0.2 % Neutrophils # (Auto) 6.92 K/uL Lymphocytes # (Auto) 0.99 K/uL Monocytes # (Auto) 0.76 K/uL Eosinophils # (Auto) 0.48 K/uL Basophils # (Auto) 0.02 K/uL RDW Standard Deviation 48.6 fL RDW Coefficient of Variation 16.8 % Immature Granulocyte % (Auto) 1.5 % Immature Granulocyte # (Auto) 0.14 K/uL Prothrombin Time 21.6 SECONDS Prothromb Time International Ratio 2.0 Activated Partial Thromboplast Time 43.9 SECONDS Partial Thromboplastin Ratio 1.7 Sodium Level 134 mmol/L Potassium Level 3.0 mmol/L Chloride Level 94 mmol/L Carbon Dioxide Level 34 mmol/L Anion Gap 6.0 mmol/L Blood Urea Nitrogen 28 mg/dl Creatinine 1.32 mg/dl Est Creatinine Clear Calc Drug Dose 55.8 ml/min Estimated GFR () 60.7 Estimated GFR (Non- 52.4 BUN/Creatinine Ratio 20.9 Random Glucose 109 mg/dl Calcium Level 8.7 mg/dl Magnesium Level 1.8 mg/dl Troponin I < 0.015 ng/ml Random Vancomycin Level 43.5 mcg/ml Test 05/30/17 11:56 Bedside Glucose 108 mg/dl Assessment & Plan Chronic left knee infection status post distal femoral replacement Currently the patient is somnolent and is not responsive to questioning or commands. At his previous admission options were discussed with him about IV suppression versus amputation. With the large stem that he has in proximally after his distal femoral replacement an amputation would amount to a hip disarticulation. I am unable to ascertain his thoughts on that currently but he previously refused this treatment back in April. That is not a procedure that we are equipped to handle here and if there is concern of persistent infections coming from the knee then he would need to be transferred to a tertiary care facility for more definitive treatment and he has previously been recommended for amputation when he is previously admitted at [facility]. I don't have any other further recommendation treatments at this time.
--- NOTE | 2017-05-30 14:01 | Medical Consult ---
Consultation Date of Consultation: May 30, 2017. Attending Physician: Charo Monsalve DO Reason for Consultation: Chronic left TKA infection History of Present Illness 77-year-old male well known to the Infectious Disease service with history of chronically infected left TKA with MRSA, on chronic vancomycin therapy, chronic indwelling Cantrell catheter with history of recurrent urinary tract infections, most recently with Pseudomonas, who now presents with 1 week history of progressively worsening cough, shortness of breath, hypoxia, and yellow sputum production. Was treated for possible pneumonia as an outpatient with doxycycline without improvement. Chest x-ray, read by me, shows possible new lower lobe infiltrate. Patient now being treated with vancomycin and Zosyn. Cultures are pending. Patient complaining of ongoing pain in his left knee, rated 5/10 in intensity currently. Past Medical/Surgical History Medical Problems: (1) Abdominal pain Status: Acute (2) Altered mental status Status: Acute (3) Altered mental status Status: Acute (4) Altered mental status Status: Acute (5) Altered mental status Status: Acute (6) Diffuse abdominal pain Status: Acute (7) Dislodged Cantrell catheter Status: Acute (8) Fever Status: Acute (9) Hematuria Status: Acute (10) Hyperglycemia Status: Acute (11) Hyperglycemia Status: Acute (12) Hypomagnesemia Status: Acute (13) Hyponatremia Status: Acute (14) Hypoxia Status: Acute (15) Hypoxia Status: Acute (16) Hypoxia Status: Acute (17) Hypoxia Status: Acute (18) Lactic acid acidosis Status: Acute (19) Left lower lobe pneumonia Status: Acute (20) Leukocytosis Status: Acute (21) Metabolic encephalopathy Status: Acute (22) Pneumonia Status: Acute (23) Pneumonia Status: Acute (24) Renal failure Status: Acute (25) Renal insufficiency Status: Acute (26) RUQ abdominal pain Status: Acute (27) Sepsis Status: Acute (28) Sigmoid volvulus Status: Acute (29) Sigmoid volvulus Status: Acute (30) UTI (urinary tract infection) Status: Acute (31) UTI (urinary tract infection) Status: Acute (32) UTI (urinary tract infection) Status: Acute (33) UTI (urinary tract infection) Status: Acute (34) UTI (urinary tract infection) Status: Acute Medical Problems: (1) Atrial fibrillation (2) Chronic indwelling Cantrell catheter (3) Coronary artery disease (4) Dyslipidemia (5) History of myocardial infarction (6) Hypertension (7) Lumbar discitis (8) Neurogenic bladder (9) Osteoarthritis (10) Paraplegia (11) Pulmonary nodule (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 (13) UTI (urinary tract infection) (14) Warfarin anticoagulation Surgical Problems: (1) H/O inguinal hernia repair (2) H/O resection of large bowel (3) H/O sinus surgery (4) Status post hip hemiarthroplasty (5) Status post removal right hip prosthesis (6) Status post total knee replacement Family History Cerebral aneurysm BROTHER Colon cancer SISTER Diabetes mellitus MOTHER Heart disease FATHER MOTHER Hypertension FATHER Prostate cancer FATHER Stroke FATHER Social History Smoking Status: Former Smoker Drug Use: none Marital Status: single Housing Status: lives alone, intermediate Occupation Status: retired Allergies Coded Allergies: Latex (Verified Allergy, Mild, UNSURE - FROM [facility], 05/29/17) Macrolides and Ketolides (Verified Allergy, Unknown, [facility], 12/04/16) Azithromycin (Verified Adverse Reaction, Mild, nausea, 05/29/17) with nausea and diarrhea Current Inpatient Medications Current Inpatient Medications Medications (Trade) Dose Ordered Sig/Betzy Route Start Time Stop Time Status Last Admin Dose Admin Albuterol/ Ipratropium (Duoneb) 3 ml QIDR INH 05/29/17 20:00 06/28/17 19:59 05/30/17 11:12 3 ML Vancomycin HCl (Consult) 1 ea UD PRN N/A 05/29/17 20:09 06/28/17 20:08 Miscellaneous Information (Consult Glycemic Management Pharmacy) 1 ea UD N/A 05/29/17 18:37 06/28/17 18:36 Al Hydrox/Mg Hydrox/Simethicone (Maalox Max Susp) 15 ml Q4H PRN PO 05/29/17 16:45 06/28/17 16:44 Ondansetron HCl (Zofran Inj) 4 mg Q6H PRN IV 05/29/17 16:45 06/28/17 16:44 Sodium Chloride 1,000 ml @ 75 mls/hr [id number] IV 05/29/17 19:24 06/28/17 19:23 05/30/17 07:45 75 MLS/HR Amlodipine Besylate (Norvasc Tab) 5 mg DAILY PO 05/30/17 09:00 06/29/17 08:59 05/30/17 07:46 5 MG Aspirin (Ecotrin Tab) 81 mg DAILY PO 05/30/17 09:00 06/29/17 08:59 05/30/17 07:46 81 MG Atorvastatin Calcium (Lipitor Tab) 40 mg HS PO 05/29/17 21:00 06/28/17 20:59 05/29/17 21:37 40 MG Magnesium Hydroxide (Milk Of Magnesia Susp) 30 ml DAILY PRN PO 05/29/17 17:00 06/28/17 16:59 Nystatin (Mycostatin Crm) 1 appln BID EXT 05/29/17 21:00 06/28/17 20:59 05/30/17 07:46 1 APPLN Pantoprazole Sodium (Protonix Tab) 40 mg DAILY PO 05/30/17 09:00 06/29/17 08:59 05/30/17 07:46 40 MG Senna/Docusate Sodium (Senokot S Tab) 1 tab BID PO 05/29/17 21:00 06/28/17 20:59 05/30/17 07:45 1 TAB Sotalol HCl (Betapace Tab) 80 mg DAILY PO 05/30/17 09:00 06/29/17 08:59 05/30/17 07:46 80 MG Warfarin Sodium (Coumadin Tab) 2.5 mg DAILY@1600 PO 05/29/17 21:00 06/28/17 20:59 05/29/17 21:37 2.5 MG Piperacillin Sod/ Tazobactam Sod (Consult) 1 ea UD PRN N/A 05/29/17 20:15 06/28/17 20:14 Piperacillin Sod/ Tazobactam Sod 3.375 gm/Dextrose 115 ml @ 28.75 mls/ hr Q8H IV 05/29/17 22:00 06/05/17 21:59 05/30/17 13:55 28.75 MLS/HR Insulin Aspart (novoLOG ASPART) SLIDING SCALE Q6 SC 05/30/17 00:00 06/29/17 00:00 Heparin Sodium (Porcine) (Heparin 10 Unit/ ml 5 ml Flush) 5 ml PRN PRN FLUSH 05/30/17 01:00 06/29/17 00:59 Insulin Glargine (Lantus Solostar Pen) 15 units BID SC 05/30/17 09:00 06/29/17 08:59 05/30/17 09:08 15 UNITS Potassium Chloride (Klor-Con Tab) 40 meq Q6H PO 05/30/17 08:30 05/30/17 20:31 05/30/17 09:07 40 MEQ Review of Systems All systems were reviewed and are negative except as per HPI Physical Exam Date Time Temp Pulse Resp B/P (MAP) Pulse Ox O2 Delivery O2 Flow Rate FiO2 05/30/17 12:00 95 Nasal Cannula 2.0 05/30/17 11:18 36.9 67 20 134/77 (96) 95 Nasal Cannula 2.0 05/30/17 11:13 70 18 91 Nasal Cannula 2.0 05/30/17 08:00 95 Nasal Cannula 2.0 05/30/17 08:00 95 Nasal Cannula 2.0 05/30/17 07:38 73 18 95 Nasal Cannula 3.0 05/30/17 07:36 36.8 71 19 151/85 (107) 96 Nasal Cannula 3.0 05/30/17 04:40 36.9 70 18 128/74 (92) 94 Nasal Cannula 3.0 05/30/17 04:00 Nasal Cannula 3.0 05/30/17 00:00 36.5 76 20 117/78 (91) 94 Nasal Cannula 3.0 05/30/17 00:00 94 Nasal Cannula 3.0 05/29/17 20:50 78 20 93 Nasal Cannula 3.0 05/29/17 19:25 36.6 76 18 159/104 94 Nasal Cannula 3.0 05/29/17 17:49 63 20 130/84 93 Nasal Cannula 3.0 05/29/17 16:16 69 20 152/96 97 Nasal Cannula 3.0 05/29/17 14:16 94 Nasal Cannula 2.0 05/29/17 14:11 72 05/29/17 14:11 36.5 77 20 159/97 87 Room Air General Appearance: WD/WN, no apparent distress Head: normocephalic, atraumatic Eyes: normal inspection, EOMI, sclerae normal ENT: normal ENT inspection, pharynx normal Neck: supple, no adenopathy, thyroid normal, trachea midline Respiratory/Chest: chest non-tender, no respiratory distress, no accessory muscle use, + rales (Left base) Cardiovascular: regular rate, rhythm, no gallop, no murmur Abdomen/GI: normal bowel sounds, non tender, soft, no organomegaly, + pertinent finding (Ostomy site clean) Back: normal inspection, no CVA tenderness Extremities/Musculoskelatal: no calf tenderness, + swelling (Mild bilateral), + pertinent finding (Left knee mildly swollen, with overlying erythema and some increase in warmth, no drainage) Neurologic/Psych: alert, oriented x 3 Skin: normal color, + pertinent finding (Bilateral venous stasis changes both shins) Lymphatic: no adenopathy Laboratory Results Date/Time Source Procedure Growth Status 05/29/17 15:09 Blood Blood Culture Pending Received 05/29/17 14:40 Blood Blood Culture Pending Received 05/29/17 21:00 Urine,Catheterized Urine Culture Pending Received Last 24 Hours Test 05/29/17 14:40 05/29/17 20:20 05/29/17 20:56 05/29/17 21:00 White Blood Count 8.14 K/uL Red Blood Count 4.31 M/uL Hemoglobin 11.0 g/dL Hematocrit 34.0 % Mean Corpuscular Volume 78.9 fL Mean Corpuscular Hemoglobin 25.5 pg Mean Corpuscular Hemoglobin Concent 32.4 g/dl Platelet Count 259 K/uL Mean Platelet Volume 9.9 fL Neutrophils (%) (Auto) 66.1 % Lymphocytes (%) (Auto) 14.7 % Monocytes (%) (Auto) 9.3 % Eosinophils (%) (Auto) 6.9 % Basophils (%) (Auto) 0.4 % Neutrophils # (Auto) 5.38 K/uL Lymphocytes # (Auto) 1.20 K/uL Monocytes # (Auto) 0.76 K/uL Eosinophils # (Auto) 0.56 K/uL Basophils # (Auto) 0.03 K/uL RDW Standard Deviation 48.7 fL RDW Coefficient of Variation 16.8 % Immature Granulocyte % (Auto) 2.6 % Immature Granulocyte # (Auto) 0.21 K/uL Nucleated RBC Absolute Count (auto) 0.03 K/uL Nucleated Red Blood Cells % 0.3 % Prothrombin Time 21.6 SECONDS Prothromb Time International Ratio 2.0 Activated Partial Thromboplast Time 44.6 SECONDS Partial Thromboplastin Ratio 1.7 Sodium Level 129 mmol/L 130 mmol/L Potassium Level 3.5 mmol/L Chloride Level 90 mmol/L Carbon Dioxide Level 31 mmol/L Anion Gap 8.0 mmol/L Blood Urea Nitrogen 29 mg/dl Creatinine 1.47 mg/dl Est Creatinine Clear Calc Drug Dose 50.9 ml/min Estimated GFR () 53.3 Estimated GFR (Non- 46.0 BUN/Creatinine Ratio 19.9 Random Glucose 148 mg/dl Osmolality 284 mOsm/kg Calcium Level 8.8 mg/dl Total Bilirubin 0.3 mg/dl Aspartate Amino Transf (AST/SGOT) 35 U/L Alanine Aminotransferase (ALT/SGPT) 38 U/L Alkaline Phosphatase 151 U/L Total Creatine Kinase 87 U/L Creatine Kinase MB 2.6 ng/ml Creatine Kinase MB Ratio 3.0 Troponin I < 0.015 ng/ml Total Protein 8.6 gm/dl Albumin 2.6 gm/dl Globulin 6.0 gm/dl Albumin/Globulin Ratio 0.4 Procalcitonin 0.17 ng/ml Chemistry Specimen Hemolysis Bedside Glucose 133 mg/dl Urine Color YELLOW Urine Appearance CLEAR Urine pH 6.0 Urine Specific [place] 1.009 Urine Protein NEG Urine Glucose (UA) NEG Urine Ketones NEG Urine Occult Blood 3+ Urine Nitrite NEG Urine Bilirubin NEG Urine Urobilinogen NEG Urine Leukocyte Esterase MODERATE Urine WBC (Auto) 10-30 /hpf Urine RBC (Auto) 10-30 /hpf Urine Hyaline Casts (Auto) 5-10 /lpf Urine Epithelial Cells (Auto) >30 /lpf Urine Bacteria (Auto) NEG Urine Renal Epithelial Cells /lpf Urine Osmolality 240 mOms/kg Test 05/29/17 23:47 05/30/17 01:51 05/30/17 01:57 05/30/17 05:57 Bedside Glucose 146 mg/dl 119 mg/dl 109 mg/dl White Blood Count 9.31 K/uL Red Blood Count 4.04 M/uL Hemoglobin 10.0 g/dL Hematocrit 32.0 % Mean Corpuscular Volume 79.2 fL Mean Corpuscular Hemoglobin 24.8 pg Mean Corpuscular Hemoglobin Concent 31.3 g/dl Platelet Count 210 K/uL Mean Platelet Volume 9.0 fL Neutrophils (%) (Auto) 74.3 % Lymphocytes (%) (Auto) 10.6 % Monocytes (%) (Auto) 8.2 % Eosinophils (%) (Auto) 5.2 % Basophils (%) (Auto) 0.2 % Neutrophils # (Auto) 6.92 K/uL Lymphocytes # (Auto) 0.99 K/uL Monocytes # (Auto) 0.76 K/uL Eosinophils # (Auto) 0.48 K/uL Basophils # (Auto) 0.02 K/uL RDW Standard Deviation 48.6 fL RDW Coefficient of Variation 16.8 % Immature Granulocyte % (Auto) 1.5 % Immature Granulocyte # (Auto) 0.14 K/uL Prothrombin Time 21.6 SECONDS Prothromb Time International Ratio 2.0 Activated Partial Thromboplast Time 43.9 SECONDS Partial Thromboplastin Ratio 1.7 Sodium Level 134 mmol/L Potassium Level 3.0 mmol/L Chloride Level 94 mmol/L Carbon Dioxide Level 34 mmol/L Anion Gap 6.0 mmol/L Blood Urea Nitrogen 28 mg/dl Creatinine 1.32 mg/dl Est Creatinine Clear Calc Drug Dose 55.8 ml/min Estimated GFR () 60.7 Estimated GFR (Non- 52.4 BUN/Creatinine Ratio 20.9 Random Glucose 109 mg/dl Calcium Level 8.7 mg/dl Magnesium Level 1.8 mg/dl Troponin I < 0.015 ng/ml Random Vancomycin Level 43.5 mcg/ml Test 05/30/17 11:56 Bedside Glucose 108 mg/dl Patient Name: CARLY BELLA Unit Number: [id number] Dictated: 05/29/171435 Transcribed: 05/29/171435 MS Printed Date/Time: [~ rep prt dt]/[~ rep prt tm] [~ rep ct labl] - [~ rep ct ivnm] [facility] [place] [place] [address] Dictated: 05/29/171435 Transcribed: 05/29/171435 MS Printed Date/Time: [~ rep prt dt]/[~ rep prt tm] [~ rep ct labl] - [~ rep ct ivnm] [facility]ST [facility] PORTABLE CLINICAL HISTORY: sob dyspnea COMPARISON STUDY: 04/11/2017 FINDINGS: Placement of PICC catheter in the right atrium. No evidence of pneumothorax. Developing parenchymal infiltrate left base. Right lung is clear. IMPRESSION: PICC catheter in the right atrium. No evidence pneumothorax. Early parenchymal infiltrate left base The above report was generated using voice recognition software. It may contain grammatical, syntax or spelling errors. Electronically signed by: Julian Vargas M.D. 05/29/2017 2:37 PM Dictated Date/Time: 05/29/2017 2:36 PM The status of this report is Signed. Draft = Not yet reviewed or approved by Radiologist. Signed = Reviewed and approved by Radiologist. <AttendingPhy></AttendingPhy> <FamilyPhy>Lilo Davis M.D.</FamilyPhy> < PrimaryPhy>Lilo Davis M.D.</PrimaryPhy> <UnitNumber>[id number]</UnitNumber > <VisitNumber>[id number]</VisitNumber> <PatientName>CARLY BELLA</ PatientName> <DateOfBirth>1940</DateOfBirth> <Location>[facility]</Location> < ServiceDate>05/29/17</ServiceDate> <MNE>ESINDI</MNE> <OrderingPhy>Imer Casiano D.O.</OrderingPhy> <OrderingPhyMNE>f rep ord dr wells</OrderingPhyMNE> < DictatingPhyMNE>f rep dict dr wells</DictatingPhyMNE> <CCListMNE>f rep ct vanessae</ CCListMNE> <AdmittingPhyMNE>f pt admit dr wells</AdmittingPhyMNE> <AttendingPhyMNE >f pt attend dr wells</AttendingPhyMNE> <ConsultingPhyMNE>f pt consult dr wells</ConsultingPhyMNE> <FamilyPhyMNE>f pt fam dr wells</FamilyPhyMNE> <OtherPhyMNE>f pt other dr wells</OtherPhyMNE> < PrimaryPhyMNE>f pt prim care dr wells</PrimaryPhyMNE> <ReferringPhyMNE>f pt referring dr wells</ReferringPhyMNE> Assessment & Plan Patient with chronically infected left TKA with MRSA, 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 Patient now with left lower lobe pneumonia. Pending further culture results, patient should be continued on vancomycin and Zosyn. Will need to continue on chronic suppressive therapy given his wish not to have further surgery of his knee. Will follow.
--- NOTE | 2017-05-30 14:21 | Progress Note ---
Medicine Progress Note Date & Time of Visit: May 30, 2017 at 13:51. 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 -states he ate something this morning, however, he is NPO. Objective Last 8 Hrs Date Time Temp Pulse Resp B/P (MAP) Pulse Ox O2 Delivery O2 Flow Rate FiO2 05/30/17 12:00 95 Nasal Cannula 2.0 05/30/17 11:18 36.9 67 20 134/77 (96) 95 Nasal Cannula 2.0 05/30/17 11:13 70 18 91 Nasal Cannula 2.0 05/30/17 08:00 95 Nasal Cannula 2.0 05/30/17 08:00 95 Nasal Cannula 2.0 05/30/17 07:38 73 18 95 Nasal Cannula 3.0 05/30/17 07:36 36.8 71 19 151/85 (107) 96 Nasal Cannula 3.0 Physical Exam: GEN: obese, in no acute distress, lethargic, awakens to verbal and physical stimulus but doesn't stay awake long. HEENT: NC/AT, PERRL, normal sclerae CARDIO: reg rate, S1/2 heard without m/g/r LUNGS: CTA bilaterally, no crackles, rales or wheezes, good diaphragmatic excursion-exam was limited by poor effort from patient. ABD: +BS, soft, non-tender, non-distended, no rebound or guarding EXTREMITY: RICC in place, no LE swelling or edema, extremities are warm and well -perfused. LLE: L knee effusion with erythema and well-healed incision vertically which is erythematous. RLE has some anterior lower leg erythema. NEURO: as above, difficult to assess 2/2 patient lethargy MUSC: 5/5 strength throughout, no focal deficits SKIN: warm and dry and as above. Laboratory Results: 05/30/17 01:57 Red Blood Count 4.04, Mean Corpuscular Volume 79.2, Mean Corpuscular Hemoglobin 24.8, Mean Corpuscular Hemoglobin Concent 31.3, Mean Platelet Volume 9.0, Neutrophils (%) (Auto) 74.3, Lymphocytes (%) (Auto) 10.6, Monocytes (%) (Auto) 8.2, Eosinophils (%) (Auto) 5.2, Basophils (%) (Auto) 0.2, Neutrophils # (Auto) 6.92, Lymphocytes # (Auto) 0.99, Monocytes # (Auto) 0.76, Eosinophils # (Auto) 0.48, Basophils # (Auto) 0.02 05/30/17 01:57 Test 05/29/17 14:40 05/29/17 21:00 05/30/17 01:57 05/30/17 11:56 Nucleated RBC Absolute Count (auto) 0.03 K/uL (0-0) Nucleated Red Blood Cells % 0.3 % Osmolality 284 mOsm/kg (280-300) Total Bilirubin 0.3 mg/dl (0.2-1) Aspartate Amino Transf (AST/SGOT) 35 U/L (15-37) Alanine Aminotransferase (ALT/SGPT) 38 U/L (12-78) Alkaline Phosphatase 151 U/L (45-117) Total Creatine Kinase 87 U/L (39-308) Creatine Kinase MB 2.6 ng/ml (0.5-3.6) Creatine Kinase MB Ratio 3.0 (0-3.0) Total Protein 8.6 gm/dl (6.4-8.2) Albumin 2.6 gm/dl (3.4-5.0) Globulin 6.0 gm/dl (2.5-4.0) Albumin/Globulin Ratio 0.4 (0.9-2) Procalcitonin 0.17 ng/ml (0-0.5) Chemistry Specimen Hemolysis Urine Color YELLOW Urine Appearance CLEAR (CLEAR) Urine pH 6.0 (4.5-7.5) Urine Specific Paxton 1.009 (1.000-1.030) Urine Protein NEG (NEG) Urine Glucose (UA) NEG (NEG) Urine Ketones NEG (NEG) Urine Occult Blood 3+ (NEG) Urine Nitrite NEG (NEG) Urine Bilirubin NEG (NEG) Urine Urobilinogen NEG (NEG) Urine Leukocyte Esterase MODERATE (NEG) Urine WBC (Auto) 10-30 /hpf (0-5) Urine RBC (Auto) 10-30 /hpf (0-4) Urine Hyaline Casts (Auto) 5-10 /lpf (0-5) Urine Epithelial Cells (Auto) >30 /lpf (0-5) Urine Bacteria (Auto) NEG (NEG) Urine Renal Epithelial Cells /lpf (0-5) Urine Osmolality 240 mOms/kg (500-800) White Blood Count 9.31 K/uL (4.8-10.8) Red Blood Count 4.04 M/uL (4.7-6.1) Hemoglobin 10.0 g/dL (14.0-18.0) Hematocrit 32.0 % (42-52) Mean Corpuscular Volume 79.2 fL (80-100) Mean Corpuscular Hemoglobin 24.8 pg (25-34) Mean Corpuscular Hemoglobin Concent 31.3 g/dl (32-36) Platelet Count 210 K/uL (130-400) Mean Platelet Volume 9.0 fL (7.4-10.4) Neutrophils (%) (Auto) 74.3 % Lymphocytes (%) (Auto) 10.6 % Monocytes (%) (Auto) 8.2 % Eosinophils (%) (Auto) 5.2 % Basophils (%) (Auto) 0.2 % Neutrophils # (Auto) 6.92 K/uL (1.4-6.5) Lymphocytes # (Auto) 0.99 K/uL (1.2-3.4) Monocytes # (Auto) 0.76 K/uL (0.11-0.59) Eosinophils # (Auto) 0.48 K/uL (0-0.5) Basophils # (Auto) 0.02 K/uL (0-0.2) RDW Standard Deviation 48.6 fL (36.4-46.3) RDW Coefficient of Variation 16.8 % (11.5-14.5) Immature Granulocyte % (Auto) 1.5 % Immature Granulocyte # (Auto) 0.14 K/uL (0.00-0.02) Prothrombin Time 21.6 SECONDS (9.0-12.0) Prothromb Time International Ratio 2.0 (0.9-1.1) Activated Partial Thromboplast Time 43.9 SECONDS (21.0-31.0) Partial Thromboplastin Ratio 1.7 Anion Gap 6.0 mmol/L (3-11) Est Creatinine Clear Calc Drug Dose 55.8 ml/min Estimated GFR () 60.7 Estimated GFR (Non- 52.4 BUN/Creatinine Ratio 20.9 (10-20) Calcium Level 8.7 mg/dl (8.5-10.1) Magnesium Level 1.8 mg/dl (1.8-2.4) Troponin I < 0.015 ng/ml (0-0.045) Bedside Glucose 108 mg/dl (70-99) Test 05/30/17 14:00 Date/Time Source Procedure Growth Status 05/29/17 15:09 Blood Blood Culture Pending Received 05/29/17 00:00 Sputum Expectorated Sputum Gram Stain - Final Resulted 05/29/17 00:00 Sputum Expectorated Sputum Sputum Culture Pending Resulted 05/29/17 21:00 Urine,Catheterized Urine Culture Pending Received Last 24 Hours Test 05/29/17 14:40 05/29/17 20:20 05/29/17 20:56 05/29/17 21:00 White Blood Count 8.14 K/uL Red Blood Count 4.31 M/uL Hemoglobin 11.0 g/dL Hematocrit 34.0 % Mean Corpuscular Volume 78.9 fL Mean Corpuscular Hemoglobin 25.5 pg Mean Corpuscular Hemoglobin Concent 32.4 g/dl Platelet Count 259 K/uL Mean Platelet Volume 9.9 fL Neutrophils (%) (Auto) 66.1 % Lymphocytes (%) (Auto) 14.7 % Monocytes (%) (Auto) 9.3 % Eosinophils (%) (Auto) 6.9 % Basophils (%) (Auto) 0.4 % Neutrophils # (Auto) 5.38 K/uL Lymphocytes # (Auto) 1.20 K/uL Monocytes # (Auto) 0.76 K/uL Eosinophils # (Auto) 0.56 K/uL Basophils # (Auto) 0.03 K/uL RDW Standard Deviation 48.7 fL RDW Coefficient of Variation 16.8 % Immature Granulocyte % (Auto) 2.6 % Immature Granulocyte # (Auto) 0.21 K/uL Nucleated RBC Absolute Count (auto) 0.03 K/uL Nucleated Red Blood Cells % 0.3 % Prothrombin Time 21.6 SECONDS Prothromb Time International Ratio 2.0 Activated Partial Thromboplast Time 44.6 SECONDS Partial Thromboplastin Ratio 1.7 Sodium Level 129 mmol/L 130 mmol/L Potassium Level 3.5 mmol/L Chloride Level 90 mmol/L Carbon Dioxide Level 31 mmol/L Anion Gap 8.0 mmol/L Blood Urea Nitrogen 29 mg/dl Creatinine 1.47 mg/dl Est Creatinine Clear Calc Drug Dose 50.9 ml/min Estimated GFR () 53.3 Estimated GFR (Non- 46.0 BUN/Creatinine Ratio 19.9 Random Glucose 148 mg/dl Osmolality 284 mOsm/kg Calcium Level 8.8 mg/dl Total Bilirubin 0.3 mg/dl Aspartate Amino Transf (AST/SGOT) 35 U/L Alanine Aminotransferase (ALT/SGPT) 38 U/L Alkaline Phosphatase 151 U/L Total Creatine Kinase 87 U/L Creatine Kinase MB 2.6 ng/ml Creatine Kinase MB Ratio 3.0 Troponin I < 0.015 ng/ml Total Protein 8.6 gm/dl Albumin 2.6 gm/dl Globulin 6.0 gm/dl Albumin/Globulin Ratio 0.4 Procalcitonin 0.17 ng/ml Chemistry Specimen Hemolysis Bedside Glucose 133 mg/dl Urine Color YELLOW Urine Appearance CLEAR Urine pH 6.0 Urine Specific Paxton 1.009 Urine Protein NEG Urine Glucose (UA) NEG Urine Ketones NEG Urine Occult Blood 3+ Urine Nitrite NEG Urine Bilirubin NEG Urine Urobilinogen NEG Urine Leukocyte Esterase MODERATE Urine WBC (Auto) 10-30 /hpf Urine RBC (Auto) 10-30 /hpf Urine Hyaline Casts (Auto) 5-10 /lpf Urine Epithelial Cells (Auto) >30 /lpf Urine Bacteria (Auto) NEG Urine Renal Epithelial Cells /lpf Urine Osmolality 240 mOms/kg Test 05/29/17 23:47 05/30/17 01:51 05/30/17 01:57 05/30/17 05:57 Bedside Glucose 146 mg/dl 119 mg/dl 109 mg/dl White Blood Count 9.31 K/uL Red Blood Count 4.04 M/uL Hemoglobin 10.0 g/dL Hematocrit 32.0 % Mean Corpuscular Volume 79.2 fL Mean Corpuscular Hemoglobin 24.8 pg Mean Corpuscular Hemoglobin Concent 31.3 g/dl Platelet Count 210 K/uL Mean Platelet Volume 9.0 fL Neutrophils (%) (Auto) 74.3 % Lymphocytes (%) (Auto) 10.6 % Monocytes (%) (Auto) 8.2 % Eosinophils (%) (Auto) 5.2 % Basophils (%) (Auto) 0.2 % Neutrophils # (Auto) 6.92 K/uL Lymphocytes # (Auto) 0.99 K/uL Monocytes # (Auto) 0.76 K/uL Eosinophils # (Auto) 0.48 K/uL Basophils # (Auto) 0.02 K/uL RDW Standard Deviation 48.6 fL RDW Coefficient of Variation 16.8 % Immature Granulocyte % (Auto) 1.5 % Immature Granulocyte # (Auto) 0.14 K/uL Prothrombin Time 21.6 SECONDS Prothromb Time International Ratio 2.0 Activated Partial Thromboplast Time 43.9 SECONDS Partial Thromboplastin Ratio 1.7 Sodium Level 134 mmol/L Potassium Level 3.0 mmol/L Chloride Level 94 mmol/L Carbon Dioxide Level 34 mmol/L Anion Gap 6.0 mmol/L Blood Urea Nitrogen 28 mg/dl Creatinine 1.32 mg/dl Est Creatinine Clear Calc Drug Dose 55.8 ml/min Estimated GFR () 60.7 Estimated GFR (Non- 52.4 BUN/Creatinine Ratio 20.9 Random Glucose 109 mg/dl Calcium Level 8.7 mg/dl Magnesium Level 1.8 mg/dl Troponin I < 0.015 ng/ml Random Vancomycin Level 43.5 mcg/ml Test 05/30/17 11:56 Bedside Glucose 108 mg/dl Date/Time Source Procedure Growth Status 05/29/17 15:09 Blood Blood Culture Pending Received 05/29/17 14:40 Blood Blood Culture Pending Received 05/29/17 21:00 Urine,Catheterized Urine Culture Pending Received Assessment & Plan 77 yo M with 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 Acute hypoxic respiratory failure 2/2 HCAP Pneumonia: Pt in no respiratory distress. Only uses oxygen at night typically. Very fatigued and easily falls asleep during exam. Denies fevers or chills and states that he does feel somewhat improved since arrival to the hospital. IV Vancomycin and Zosyn continue. Cultures are pending. Cont Duonebs and oxygen. Cont to try to get him more awake and poss in chair later if he wakes up more. 2. Metabolic encephalopathy-likely 2/2 chronic knee infection and recent HCAP. Still some confusion present but he is able to concentrate and respond appropriately with excessive verbal stimuli. Neuro exam is very limited 2/2 patient's inability to cooperate with exam, his obesity and paralyzed state. CT head was normal on admission. Cont to treat infection and minimize and sedating medications if possible. Speech eval could not be performed 2/2 lethargy. Maintains NPO status for now. 3. Hyponatremia-likely 2/2 poor PO intake. Responded to IVF overnight. While patient lethargic and not eating much, will cont IVF another day. Monitor PRP daily. 4. Hypokalemia-replaced. Repeat PRP in am. Normal Mg level noted. 5. h/o recurrent UTIs: 2/2 indwelling Cantrell in setting of neurogenic bladder. Repeat UA revealed no evidence of bacteria and patient denies the ability to feel any symptoms in his bladder. Continues on broad spectrum abx while awaiting Urine culture. 6. 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 Continues on suppressive therapy with Vancomycin. 7. DMII-uncontrolled with A1C of 12 in Mar 2017. Cont ISS with carb coverage and Glargine. Apprec glycemic pharmacist recs. 8. PAF-SR on admission EKG. Continues on home sotalol and INR therapeutic on current dose of coumadin. 9. CAD-stable, no chest pain or other active symptoms reported. Cont ASA, statin. 10. Anemia-chronic, stable. No indication for transfusion at this time. DVT PPx: On coumadin Code status: FULL CODE (admitting team discussed this with the custodial on admission) Dispo: -PT/OT/speech eval -Discharge planning back to [facility] once medically stable Charo Monsalve DO [facility] Hospitalist Consultants: RENUKA, Ortho Current Inpatient Medications: Current Inpatient Medications Medications (Trade) Dose Ordered Sig/Betzy Route Start Time Stop Time Status Last Admin Dose Admin Albuterol/ Ipratropium (Duoneb) 3 ml QIDR INH 05/29/17 20:00 06/28/17 19:59 05/30/17 11:12 3 ML Vancomycin HCl (Consult) 1 ea UD PRN N/A 05/29/17 20:09 06/28/17 20:08 Miscellaneous Information (Consult Glycemic Management Pharmacy) 1 ea UD N/A 05/29/17 18:37 06/28/17 18:36 Al Hydrox/Mg Hydrox/Simethicone (Maalox Max Susp) 15 ml Q4H PRN PO 05/29/17 16:45 06/28/17 16:44 Ondansetron HCl (Zofran Inj) 4 mg Q6H PRN IV 05/29/17 16:45 06/28/17 16:44 Sodium Chloride 1,000 ml @ 75 mls/hr [id number] IV 05/29/17 19:24 06/28/17 19:23 05/30/17 07:45 75 MLS/HR Amlodipine Besylate (Norvasc Tab) 5 mg DAILY PO 05/30/17 09:00 06/29/17 08:59 05/30/17 07:46 5 MG Aspirin (Ecotrin Tab) 81 mg DAILY PO 05/30/17 09:00 06/29/17 08:59 05/30/17 07:46 81 MG Atorvastatin Calcium (Lipitor Tab) 40 mg HS PO 05/29/17 21:00 06/28/17 20:59 05/29/17 21:37 40 MG Magnesium Hydroxide (Milk Of Magnesia Susp) 30 ml DAILY PRN PO 05/29/17 17:00 06/28/17 16:59 Nystatin (Mycostatin Crm) 1 appln BID EXT 05/29/17 21:00 06/28/17 20:59 05/30/17 07:46 1 APPLN Pantoprazole Sodium (Protonix Tab) 40 mg DAILY PO 05/30/17 09:00 06/29/17 08:59 05/30/17 07:46 40 MG Senna/Docusate Sodium (Senokot S Tab) 1 tab BID PO 05/29/17 21:00 06/28/17 20:59 05/30/17 07:45 1 TAB Sotalol HCl (Betapace Tab) 80 mg DAILY PO 05/30/17 09:00 06/29/17 08:59 05/30/17 07:46 80 MG Warfarin Sodium (Coumadin Tab) 2.5 mg DAILY@1600 PO 05/29/17 21:00 06/28/17 20:59 05/29/17 21:37 2.5 MG Piperacillin Sod/ Tazobactam Sod (Consult) 1 ea UD PRN N/A 05/29/17 20:15 06/28/17 20:14 Piperacillin Sod/ Tazobactam Sod 3.375 gm/Dextrose 115 ml @ 28.75 mls/ hr Q8H IV 05/29/17 22:00 06/05/17 21:59 05/30/17 05:42 28.75 MLS/HR Insulin Aspart (novoLOG ASPART) SLIDING SCALE Q6 SC 05/30/17 00:00 06/29/17 00:00 Heparin Sodium (Porcine) (Heparin 10 Unit/ ml 5 ml Flush) 5 ml PRN PRN FLUSH 05/30/17 01:00 06/29/17 00:59 Insulin Glargine (Lantus Solostar Pen) 15 units BID SC 05/30/17 09:00 06/29/17 08:59 05/30/17 09:08 15 UNITS Potassium Chloride (Klor-Con Tab) 40 meq Q6H PO 05/30/17 08:30 05/30/17 20:31 05/30/17 09:07 40 MEQ
[2017-05-30] MEDS: WARFARIN SOD 2.5 MG TAB PO SCH (15:20)
--- NOTE | 2017-05-30 15:57 | Pharmacy Progress Note ---
Pharmacy Abx Initial Consult Date of Service May 30, 2017. Pharmacy Dosing Scope Date of Consult: 05/29/17 Consultation requested by: Lupe Calderon PA-C Pharmacy is consulted to initiate Vancomycin IV dosing therapy, order appropriate labs and adjust drug dose/frequency. Subjective The patient is a 77 year old male admitted on May 29, 2017 at 16:11. Objective Height (Feet): 5 Height (Inches): 5.00 Weight (Kilograms): 110.000 Vital Signs (Past 12Hrs) Vital Signs Past 12 Hours Date Time Temp Pulse Resp B/P (MAP) Pulse Ox O2 Delivery O2 Flow Rate FiO2 05/30/17 12:00 95 Nasal Cannula 2.0 05/30/17 11:18 36.9 67 20 134/77 (96) 95 Nasal Cannula 2.0 05/30/17 11:13 70 18 91 Nasal Cannula 2.0 05/30/17 08:00 95 Nasal Cannula 2.0 05/30/17 08:00 95 Nasal Cannula 2.0 05/30/17 07:38 73 18 95 Nasal Cannula 3.0 05/30/17 07:36 36.8 71 19 151/85 (107) 96 Nasal Cannula 3.0 05/30/17 04:40 36.9 70 18 128/74 (92) 94 Nasal Cannula 3.0 05/30/17 04:00 Nasal Cannula 3.0 Lab Results (24Hrs) Item Value Date Time Random Vancomycin Level 43.5 mcg/ml 05/30/17 0157 Random Vancomycin Level 35.0 mcg/ml 05/30/17 1441 Laboratory Tests (24 Hours) Test 05/30/17 01:57 White Blood Count 9.31 K/uL (4.8-10.8) Red Blood Count 4.04 M/uL (4.7-6.1) L Hemoglobin 10.0 g/dL (14.0-18.0) L Hematocrit 32.0 % (42-52) L Mean Corpuscular Volume 79.2 fL (80-100) L Mean Corpuscular Hemoglobin 24.8 pg (25-34) L Mean Corpuscular Hemoglobin Concent 31.3 g/dl (32-36) L Platelet Count 210 K/uL (130-400) Mean Platelet Volume 9.0 fL (7.4-10.4) Neutrophils (%) (Auto) 74.3 % Lymphocytes (%) (Auto) 10.6 % Monocytes (%) (Auto) 8.2 % Eosinophils (%) (Auto) 5.2 % Basophils (%) (Auto) 0.2 % Neutrophils # (Auto) 6.92 K/uL (1.4-6.5) H Lymphocytes # (Auto) 0.99 K/uL (1.2-3.4) L Monocytes # (Auto) 0.76 K/uL (0.11-0.59) H Eosinophils # (Auto) 0.48 K/uL (0-0.5) Basophils # (Auto) 0.02 K/uL (0-0.2) Micro Results Date/Time Source Procedure Growth Status 05/29/17 15:09 Blood Blood Culture Pending Received 05/29/17 14:40 Blood Blood Culture Pending Received 05/29/17 00:00 Sputum Expectorated Sputum Gram Stain - Final Resulted 05/29/17 00:00 Sputum Expectorated Sputum Sputum Culture - Preliminary LIGHT NORMAL JACKI Present, Final Rep... Resulted 05/29/17 21:00 Urine,Catheterized Urine Culture - Preliminary Gram Negative Bacilli Resulted Risk Factors for Resistance * Resident in a custodial or extended-care facility * Hospitalization for 48 hours or more within the past 90 days * History of infection with a multidrug-resistant organism: MRSA of left knee prosthesis. * On Vancomycin 1 gm IV q72h for chronic suppressive therapy. Assessment & Plan Assessment 77 year old male with paraplegia, admitted for possible HCAP. Plan Vancomycin for treatment of HCAP Vancomycin IV * Loading dose: 2500 mg (21.7 mg/kg) was given yesterday at 1620. 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 * On prior admissions, patient received one-time doses of Vancomycin based on random levels. * Random level ordered by physician at 01:57 yesterday was 43.5 mcg/ml, today at 14:41 it was 35 mcg/ml. * Goal trough level for HCAP: 15 to 20 mcg/mL * Patient is taking a while to clear the loading dose. This dose was probably too high for him. * A random Vanc level ordered for 05/31/17 with AM labs. * Will order further doses based on levels as we did on prior admissions. Pharmacy will continue to follow and will adjust dose/frequency as necessary. Thank you.
[2017-05-30] MEDS ORDERED: PREGABALIN 50 MG CAP PO SCH ×2 (16:30→22:00)
[2017-05-30] MEDS: TRAMADOL HCL 50 MG TAB PO PRN (18:30)
[2017-05-30] MEDS: ATORVASTATIN 40 MG TAB PO SCH (20:06)
[2017-05-30] MEDS: GUAIFENESIN SUGAR FREE 100 MG/5 ML UDC PO PRN (22:00)
[2017-05-31] VITALS (16 sets, daily range): BP systolic 113–134; BP diastolic 64–83; PULSE 68–88; TEMP 36.6–37.2; O2SAT 90–99
[2017-05-31] MEDS: TRAMADOL HCL 50 MG TAB PO PRN ×4 (00:09→22:07)
[2017-05-31] MEDS ORDERED: NURSING VERBAL MED ORDER ONE (00:15)
[2017-05-31] MEDS: GUAIFENESIN SUGAR FREE 100 MG/5 ML UDC PO PRN ×3 (03:10→20:45)
[2017-05-31] MEDS: PIPERACILL/TAZOBAC IV 3.375 GM in DEXTROSE 5% 100ML IV SCH ×3 (05:27→22:06)
[2017-05-31 05:57] LABS: HEMATOCRIT 31.6 % (42-52); MEAN CORPUSCULAR HEMOGLOBIN 24.4 pg (25-34); MEAN CORPUSCULAR HGB CONC 30.1 g/dl (32-36); MEAN PLATELET VOLUME 9.6 fL (7.4-10.4); PLATELET COUNT 241 K/uL (130-400); WHITE BLOOD COUNT 8.55 K/uL (4.8-10.8)
[2017-05-31 06:09] LABS: INR 1.9 (0.9-1.1); PROTHROMBIN TIME (PATIENT) 20.8 SECONDS (9.0-12.0)
[2017-05-31 06:45] LABS: BUN/CREATININE RATIO 16.1 (10-20); CALCIUM 8.6 mg/dl (8.5-10.1); CREATININE 1.48 mg/dl (0.60-1.40); MAGNESIUM 1.9 mg/dl (1.8-2.4); POTASSIUM 3.7 mmol/L (3.5-5.1)
[2017-05-31] MEDS: ALBUT/IPRATROP 3MG/0.5MG NEB 3 ML VIAL INH SCH ×4 (06:57→19:30)
[2017-05-31] MEDS: INSULIN ASPART 100 UNITS/ML 3 ML PEN SC SCH ×4 (07:00→21:00)
[2017-05-31] MEDS: PREGABALIN 100 MG CAP PO SCH ×2 (08:06→20:44)
[2017-05-31] MEDS: INSULIN GLARGINE SOLOSTAR 100 UNITS/ML 3 ML PEN SC SCH ×2 (08:06→21:01)
[2017-05-31] MEDS: DOCUSATE SODIUM/SENNA 50/8.6MG TAB PO SCH ×2 (08:07→20:44)
[2017-05-31] MEDS: AMLODIPINE BESYLATE 5 MG TAB PO SCH (08:07)
[2017-05-31] MEDS: ASPIRIN 81 MG ECTAB PO SCH (08:07)
[2017-05-31] MEDS: SOTALOL HCL 80 MG TAB PO SCH (08:07)
[2017-05-31] MEDS: PANTOprazole SOD 40 MG TAB PO SCH (08:07)
[2017-05-31] MEDS: NYSTATIN CR 15 GM TUBE EXT SCH ×2 (08:08→20:45)
--- NOTE | 2017-05-31 11:09 | Pharmacy Progress Note ---
Pharmacy Glycemic Short Note 2 Date of Service May 31, 2017. OUTPATIENT ANTIDIABETIC REGIMEN: * Lantus 36 units Q AM + 42 units Q PM * Novolog 36 units w/ meals * A1c = 12.3 % 04/11/17 ASSESSMENT: * Type 2 diabetic, admitted from [facility] receiving vanco and zosyn for HAP & chronic MRSA left knee prosthetic joint infection. * Patient is known to our glycemic control service from prior hospitalizations. * Per last admission, would expect the patient to require 100+ units of insulin per day when tolerating a diet. * Interestingly, sometimes he requires very little insulin. His insulin requirement can very greatly. Item Value Date Time Bedside Glucose 100 mg/dl H 05/31/17 0707 Bedside Glucose 161 mg/dl H 05/30/172021 Bedside Glucose 95 mg/dl 05/30/17 1620 Bedside Glucose 108 mg/dl H 05/30/17 1156 Bedside Glucose 109 mg/dl H 05/30/17 0557 Bedside Glucose 119 mg/dl H 05/30/17 0151 Bedside Glucose 146 mg/dl H 05/29/17 2347 * Pt has been receiving reduced outpatient Lantus dosing for NPO status (Lantus 15 units BID). Pt has not required any NovoLog coverage while NPO * AM fasting BSG slightly below goal range @ 109, 100 mg/dl today. Additionally , his A1c is 12.3% so this normal BSG may feel hypo to him. * Diet has been changed from NPO to full diabetic diet. However, pt did not eat breakfast. Pt tolerated a good lunch. Expect insulin needs to increase with increased PO intake. - Will order Lantus per scale this evening and continue to titrate based on BSG trends * Most BSGs are below goal range. Will decrease insulin regimen accordingly to prevent hypo. PLAN FOR INPATIENT GLYCEMIC CONTROL: * Basal insulin: change to "scale/range based dosing" for uncertain needs with increased PO intake * Lantus SQ BID - dosing based on bsg * BSG below 140 mg/dl --> 15 units * BSG 140-180 mg/dl --> 20 units * BSG 81 mg/dl or above --> 25 units * Bolus insulin: * NovoLog per scale ACHS or Q6hrs while NPO * Goal Range: Low 120 mg/dL - High 150 mg/dL * Correction Factor: 15 mg/dL/unit * Nutritional / Prandial insulin per carb ratio of 1 unit per 5 grams CHO consumed
[2017-05-31] MEDS: SODIUM CHLORIDE 0.9% 1000ML 1,000 ML IV SCH (11:32)
--- NOTE | 2017-05-31 12:03 | Pharmacy Progress Note ---
Pharmacy Abx Dose Short Note Date of Service May 31, 2017. Assessment & Plan Assessment 77 year old male receiving one-time doses of Vancomycin for possible HCAP and history of MRSA in L knee prosthesis. Day # 3 of antimicrobial therapy. Plan Vancomycin * After a hefty dose of 2500 mg IV x 1 given at 1620 on 05/29, we have been checking random Vanco levels to determine when he needs to be re-dosed. * Random level this AM was 28.4 mcg/ml at 05:32. * Goal trough level: 15 to 20 mcg/mL * Level is still too high. Will wait till it falls below 20 mcg/ml before we re- dose. * Random level ordered for: 06/01/17 with AM labs Pharmacy will continue to follow and will adjust dose/frequency as necessary. Thank you.
[2017-05-31] MEDS: WARFARIN SOD 2.5 MG TAB PO SCH (15:59)
--- NOTE | 2017-05-31 16:33 | Progress Note ---
Medicine Progress Note Date & Time of Visit: May 31, 2017 at 14:39. 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. He was admitted and placed on broad spectrum antibiotics with Zosyn added to his chronic Vancomycin. He was still lethargic on HD 2 but now is more awake and is conversing. He is still requiring oxygen which he is not on at home, but this is improving also from 3L to 2L via nasal canula. He remains afebrile. He is tolerating PO and is otherwise asymptomatic. Objective Last 8 Hrs Date Time Temp Pulse Resp B/P (MAP) Pulse Ox O2 Delivery O2 Flow Rate FiO2 05/31/17 12:00 95 Nasal Cannula 2.0 05/31/17 11:41 36.6 74 28 116/69 (85) 90 2.0 05/31/17 11:12 71 22 90 Nasal Cannula 2.0 05/31/17 09:58 75 91 05/31/17 08:00 95 Nasal Cannula 2.0 05/31/17 08:00 95 Nasal Cannula 2.0 05/31/17 07:32 37.2 69 18 129/77 (94) 99 2.0 05/31/17 06:58 71 20 94 Nasal Cannula 2.0 Physical Exam: GEN: obese, in no acute distress, lethargic, awakens to verbal and physical stimulus but doesn't stay awake long. Paraplegic HEENT: NC/AT, PERRL, normal sclerae CARDIO: reg rate, S1/2 heard without m/g/r LUNGS: Rales at bases bilaterally, good diaphragmatic excursion ABD: +BS, soft, non-tender, non-distended, no rebound or guarding EXTREMITY: R PICC in place, no LE swelling or edema, extremities are warm and well-perfused. LLE: L knee effusion with erythema and well-healed incision vertically which is erythematous. RLE has some anterior lower leg erythema unchanged from yesterday. NEURO: as above, difficult to assess 2/2 patient lethargy MUSC: 5/5 strength throughout, no focal deficits SKIN: warm and dry and as above. Laboratory Results: 05/31/17 05:32 05/31/17 05:32 Test 05/29/17 14:40 05/29/17 21:00 05/30/17 01:57 05/31/17 05:32 Nucleated RBC Absolute Count (auto) 0.03 K/uL (0-0) Nucleated Red Blood Cells % 0.3 % Osmolality 284 mOsm/kg (280-300) Total Bilirubin 0.3 mg/dl (0.2-1) Aspartate Amino Transf (AST/SGOT) 35 U/L (15-37) Alanine Aminotransferase (ALT/SGPT) 38 U/L (12-78) Alkaline Phosphatase 151 U/L (45-117) Total Creatine Kinase 87 U/L (39-308) Creatine Kinase MB 2.6 ng/ml (0.5-3.6) Creatine Kinase MB Ratio 3.0 (0-3.0) Total Protein 8.6 gm/dl (6.4-8.2) Albumin 2.6 gm/dl (3.4-5.0) Globulin 6.0 gm/dl (2.5-4.0) Albumin/Globulin Ratio 0.4 (0.9-2) Procalcitonin 0.17 ng/ml (0-0.5) Chemistry Specimen Hemolysis Urine Color YELLOW Urine Appearance CLEAR (CLEAR) Urine pH 6.0 (4.5-7.5) Urine Specific [place] 1.009 (1.000-1.030) Urine Protein NEG (NEG) Urine Glucose (UA) NEG (NEG) Urine Ketones NEG (NEG) Urine Occult Blood 3+ (NEG) Urine Nitrite NEG (NEG) Urine Bilirubin NEG (NEG) Urine Urobilinogen NEG (NEG) Urine Leukocyte Esterase MODERATE (NEG) Urine WBC (Auto) 10-30 /hpf (0-5) Urine RBC (Auto) 10-30 /hpf (0-4) Urine Hyaline Casts (Auto) 5-10 /lpf (0-5) Urine Epithelial Cells (Auto) >30 /lpf (0-5) Urine Bacteria (Auto) NEG (NEG) Urine Renal Epithelial Cells /lpf (0-5) Urine Osmolality 240 mOms/kg (500-800) Immature Granulocyte % (Auto) 1.5 % White Blood Count 9.31 K/uL (4.8-10.8) Red Blood Count 4.04 M/uL (4.7-6.1) 3.90 M/uL (4.7-6.1) Hemoglobin 10.0 g/dL (14.0-18.0) Hematocrit 32.0 % (42-52) Mean Corpuscular Volume 79.2 fL (80-100) 81.0 fL (80-100) Mean Corpuscular Hemoglobin 24.8 pg (25-34) 24.4 pg (25-34) Mean Corpuscular Hemoglobin Concent 31.3 g/dl (32-36) 30.1 g/dl (32-36) Platelet Count 210 K/uL (130-400) Mean Platelet Volume 9.0 fL (7.4-10.4) 9.6 fL (7.4-10.4) Neutrophils (%) (Auto) 74.3 % Lymphocytes (%) (Auto) 10.6 % Monocytes (%) (Auto) 8.2 % Eosinophils (%) (Auto) 5.2 % Basophils (%) (Auto) 0.2 % Neutrophils # (Auto) 6.92 K/uL (1.4-6.5) Lymphocytes # (Auto) 0.99 K/uL (1.2-3.4) Monocytes # (Auto) 0.76 K/uL (0.11-0.59) Eosinophils # (Auto) 0.48 K/uL (0-0.5) Basophils # (Auto) 0.02 K/uL (0-0.2) Immature Granulocyte # (Auto) 0.14 K/uL (0.00-0.02) Activated Partial Thromboplast Time 43.9 SECONDS (21.0-31.0) Partial Thromboplastin Ratio 1.7 Troponin I < 0.015 ng/ml (0-0.045) RDW Standard Deviation 50.9 fL (36.4-46.3) RDW Coefficient of Variation 17.3 % (11.5-14.5) Prothrombin Time 20.8 SECONDS (9.0-12.0) Prothromb Time International Ratio 1.9 (0.9-1.1) Anion Gap 7.0 mmol/L (3-11) Est Creatinine Clear Calc Drug Dose 49.6 ml/min Estimated GFR () 52.9 Estimated GFR (Non- 45.6 BUN/Creatinine Ratio 16.1 (10-20) Calcium Level 8.6 mg/dl (8.5-10.1) Magnesium Level 1.9 mg/dl (1.8-2.4) Random Vancomycin Level 28.4 mcg/ml Test 05/31/17 11:08 05/31/17 16:26 Bedside Glucose 166 mg/dl (70-99) Date/Time Source Procedure Growth Status 05/29/17 15:09 Blood Blood Culture - Preliminary NO GROWTH TO DATE. Resulted 05/29/17 00:00 Sputum Expectorated Sputum Gram Stain - Final Resulted 05/29/17 00:00 Sputum Expectorated Sputum Sputum Culture - Preliminary LIGHT NORMAL JACKI Present, Final Rep... Resulted 05/29/17 21:00 Urine,Catheterized Urine Culture - Final Pseudomonas Aeruginosa Complete Last 24 Hours Test 05/30/17 14:41 05/30/17 16:20 05/30/17 20:22 05/31/17 05:32 Random Vancomycin Level 35.0 mcg/ml 28.4 mcg/ml Bedside Glucose 95 mg/dl 161 mg/dl White Blood Count 8.55 K/uL Red Blood Count 3.90 M/uL Hemoglobin 9.5 g/dL Hematocrit 31.6 % Mean Corpuscular Volume 81.0 fL Mean Corpuscular Hemoglobin 24.4 pg Mean Corpuscular Hemoglobin Concent 30.1 g/dl RDW Standard Deviation 50.9 fL RDW Coefficient of Variation 17.3 % Platelet Count 241 K/uL Mean Platelet Volume 9.6 fL Prothrombin Time 20.8 SECONDS Prothromb Time International Ratio 1.9 Sodium Level 136 mmol/L Potassium Level 3.7 mmol/L Chloride Level 98 mmol/L Carbon Dioxide Level 31 mmol/L Anion Gap 7.0 mmol/L Blood Urea Nitrogen 24 mg/dl Creatinine 1.48 mg/dl Est Creatinine Clear Calc Drug Dose 49.6 ml/min Estimated GFR () 52.9 Estimated GFR (Non- 45.6 BUN/Creatinine Ratio 16.1 Random Glucose 91 mg/dl Calcium Level 8.6 mg/dl Magnesium Level 1.9 mg/dl Test 05/31/17 07:07 05/31/17 11:08 Bedside Glucose 100 mg/dl 166 mg/dl Assessment & Plan 77 yo M with 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. He was admitted and placed on broad spectrum antibiotics with Zosyn added to his chronic Vancomycin. He was still lethargic on HD 2 but now is more awake and is conversing. He is still requiring oxygen which he is not on at home, but this is improving also from 3L to 2L via nasal canula. He remains afebrile. He is tolerating PO and is otherwise asymptomatic. 1. Acute hypoxic respiratory failure 2/2 HCAP Pneumonia: no respiratory distress, cont IV Vancomycin and Zosyn. Blood cultures reveal no growth to date. Cont Duonebs and oxygen. Added flutter valve and incentive spirometry. 2. Metabolic encephalopathy-likely 2/2 chronic knee infection and recent HCAP. Resolved and patient is now tolerating PO without difficulty. 3. Hyponatremia-likely 2/2 poor PO intake. resolved. 4. CLINTON-urine lytes ordered. Repeat PRP. 5. h/o recurrent UTIs: 2/2 indwelling Cantrell in setting of neurogenic bladder. Urine culture grew 50K Pseudomonas. Pt remains on broad spectrum abx for infections in knee and lungs. 6. 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 Continues on suppressive therapy with Vancomycin. 7. DMII-uncontrolled with A1C of 12 in Mar 2017. Cont ISS with carb coverage and Glargine. Apprec glycemic pharmacist recs. 8. PAF-SR on admission EKG. Continues on home sotalol and INR therapeutic on current dose of coumadin. 9. CAD-stable, no chest pain or other active symptoms reported. Cont ASA, statin. 10. Anemia-chronic, stable. No indication for transfusion at this time. DVT PPx: On coumadin Code status: FULL CODE (admitting team discussed this with the senior living on admission) Dispo: -PT/OT/speech eval -Discharge planning back to [facility] once medically stable with resolution of hypoxia. DO Azar Mccrary Hospitalist Consultants: ID, Ortho Current Inpatient Medications: Current Inpatient Medications Medications (Trade) Dose Ordered Sig/Betzy Route Start Time Stop Time Status Last Admin Dose Admin Albuterol/ Ipratropium (Duoneb) 3 ml QIDR INH 05/29/17 20:00 06/28/17 19:59 05/31/17 11:12 3 ML Vancomycin HCl (Consult) 1 ea UD PRN N/A 05/29/17 20:09 06/28/17 20:08 Miscellaneous Information (Consult Glycemic Management Pharmacy) 1 ea UD N/A 05/29/17 18:37 06/28/17 18:36 Al Hydrox/Mg Hydrox/Simethicone (Maalox Max Susp) 15 ml Q4H PRN PO 05/29/17 16:45 06/28/17 16:44 Ondansetron HCl (Zofran Inj) 4 mg Q6H PRN IV 05/29/17 16:45 06/28/17 16:44 Sodium Chloride 1,000 ml @ 75 mls/hr [id number] IV 05/29/17 19:24 06/01/17 00:43 05/31/17 11:32 75 MLS/HR Amlodipine Besylate (Norvasc Tab) 5 mg DAILY PO 05/30/17 09:00 06/29/17 08:59 05/31/17 08:07 5 MG Aspirin (Ecotrin Tab) 81 mg DAILY PO 05/30/17 09:00 06/29/17 08:59 05/31/17 08:07 81 MG Atorvastatin Calcium (Lipitor Tab) 40 mg HS PO 05/29/17 21:00 06/28/17 20:59 05/30/17 20:06 40 MG Magnesium Hydroxide (Milk Of Magnesia Susp) 30 ml DAILY PRN PO 05/29/17 17:00 06/28/17 16:59 Nystatin (Mycostatin Crm) 1 appln BID EXT 05/29/17 21:00 06/28/17 20:59 05/31/17 08:08 1 APPLN Pantoprazole Sodium (Protonix Tab) 40 mg DAILY PO 05/30/17 09:00 06/29/17 08:59 05/31/17 08:07 40 MG Senna/Docusate Sodium (Senokot S Tab) 1 tab BID PO 05/29/17 21:00 06/28/17 20:59 05/31/17 08:07 1 TAB Sotalol HCl (Betapace Tab) 80 mg DAILY PO 05/30/17 09:00 06/29/17 08:59 05/31/17 08:07 80 MG Warfarin Sodium (Coumadin Tab) 2.5 mg DAILY@1600 PO 05/29/17 21:00 06/28/17 20:59 05/30/17 15:20 2.5 MG Piperacillin Sod/ Tazobactam Sod (Consult) 1 ea UD PRN N/A 05/29/17 20:15 06/28/17 20:14 Piperacillin Sod/ Tazobactam Sod 3.375 gm/Dextrose 115 ml @ 28.75 mls/ hr Q8H IV 05/29/17 22:00 06/05/17 21:59 05/31/17 14:23 28.75 MLS/HR Heparin Sodium (Porcine) (Heparin 10 Unit/ ml 5 ml Flush) 5 ml PRN PRN FLUSH 05/30/17 01:00 06/29/17 00:59 Pregabalin (Lyrica Cap) 100 mg BID PO 05/31/17 09:00 06/30/17 08:59 05/31/17 08:06 100 MG Tramadol HCl (Ultram Tab) 50 mg Q6H PRN PO 05/30/17 15:45 06/29/17 15:44 05/31/17 09:59 50 MG Guaifenesin (Robitussin Sugar Free Syrup) 100 mg Q6H PRN PO 05/30/17 21:30 06/29/17 21:29 05/31/17 11:31 100 MG Insulin Aspart (novoLOG ASPART) SLIDING SCALE ACHS SC 05/31/17 07:00 06/30/17 06:59 05/31/17 11:38 10 UNITS Insulin Glargine (Lantus Solostar Pen) SEE PROTOCOL TEXT BID SC 05/31/17 21:00 06/30/17 20:59
[2017-05-31 17:10] LABS: CREATININE RANDOM URINE 60.4 mg/dl
[2017-05-31] MEDS: ATORVASTATIN 40 MG TAB PO SCH (20:45)
[2017-05-31] MEDS ORDERED: INSULIN GLARGINE SOLOSTAR 100 UNITS/ML 3 ML PEN SC SCH (21:00)
[2017-06-01] VITALS (16 sets, daily range): BP systolic 124–134; BP diastolic 72–85; PULSE 65–83; TEMP 36.9–37; O2SAT 72–94
[2017-06-01] MEDS: GUAIFENESIN SUGAR FREE 100 MG/5 ML UDC PO PRN ×2 (03:56→20:27)
[2017-06-01] MEDS: TRAMADOL HCL 50 MG TAB PO PRN ×3 (03:56→20:10)
[2017-06-01] MEDS: PIPERACILL/TAZOBAC IV 3.375 GM in DEXTROSE 5% 100ML IV SCH ×3 (05:39→20:26)
[2017-06-01 06:31] LABS: INR 1.9 (0.9-1.1); PROTHROMBIN TIME (PATIENT) 21.4 SECONDS (9.0-12.0)
[2017-06-01 06:42] LABS: BUN/CREATININE RATIO 12.4 (10-20); CALCIUM 8.4 mg/dl (8.5-10.1); CREATININE 1.56 mg/dl (0.60-1.40); MAGNESIUM 1.8 mg/dl (1.8-2.4); POTASSIUM 3.5 mmol/L (3.5-5.1)
[2017-06-01] MEDS: ALBUT/IPRATROP 3MG/0.5MG NEB 3 ML VIAL INH SCH ×4 (07:13→19:52)
[2017-06-01] MEDS: DOCUSATE SODIUM/SENNA 50/8.6MG TAB PO SCH ×3 (09:00→20:37)
[2017-06-01] MEDS: PANTOprazole SOD 40 MG TAB PO SCH (10:37)
[2017-06-01] MEDS: ASPIRIN 81 MG ECTAB PO SCH (10:37)
[2017-06-01] MEDS: SOTALOL HCL 80 MG TAB PO SCH (10:38)
[2017-06-01] MEDS: AMLODIPINE BESYLATE 5 MG TAB PO SCH (10:38)
[2017-06-01] MEDS: INSULIN ASPART 100 UNITS/ML 3 ML PEN SC SCH ×4 (10:43→20:26)
[2017-06-01] MEDS: INSULIN GLARGINE SOLOSTAR 100 UNITS/ML 3 ML PEN SC SCH ×2 (10:44→20:30)
--- NOTE | 2017-06-01 10:46 | Pharmacy Progress Note ---
Pharmacy Abx Dose Short Note Date of Service Jun 01, 2017. Assessment & Plan Assessment 77 year old male receiving Vancomycin/Zosyn IV for treatment of HCAP/UTI/ chronic MRSA knee infection. ID following. Day # 4 IV Zosyn Day #? 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 * Pt's outpatient Vancomycin dosing was 1 g IV every 72 hours; however, he received a load of Vancomycin on admission in addition to his regular scheduled 1 g IV dose the day prior at [facility]. * My plan will be to continue with 1 g X 1 today and reassess a level in 48 hours. * Goal level to guide re-dosin-20 mcg/mL. * A random level ordered for: 06/03/17 with AM labs. Pharmacy will continue to follow and will adjust dose/frequency as necessary. Thank you.
[2017-06-01] MEDS: PREGABALIN 100 MG CAP PO SCH ×2 (10:49→20:37)
[2017-06-01] MEDS: NYSTATIN CR 15 GM TUBE EXT SCH ×2 (10:50→20:27)
[2017-06-01] MEDS ORDERED: VANCOMYCIN INJ 1,000 MG in SODIUM CHLORIDE 0.9% 250ML 250 ML IV ONE (11:00)
[2017-06-01] MEDS: WARFARIN SOD 2.5 MG TAB PO SCH (16:20)
--- NOTE | 2017-06-01 17:54 | Progress Note ---
Medicine Progress Note Date & Time of Visit: Jun 01, 2017 at 11:52. 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 He was admitted and placed on broad spectrum antibiotics with Zosyn added to his chronic Vancomycin. He was still lethargic on HD 2 but then became more awake and is conversing as of HD3. He is still requiring oxygen which he is not on at home, but this is improving also from 3L to 2L via nasal canula. He remains afebrile. He is tolerating PO and is otherwise asymptomatic. He is tolerating PO and mentating at baseline. Objective Last 8 Hrs Date Time Temp Pulse Resp B/P (MAP) Pulse Ox O2 Delivery O2 Flow Rate FiO2 06/01/17 11:14 76 18 90 Nasal Cannula 2.0 06/01/17 08:18 36.9 83 18 134/79 (97) 90 Nasal Cannula 06/01/17 07:13 71 18 93 Nasal Cannula 3.0 06/01/17 04:00 Nasal Cannula 2.0 Physical Exam: GEN: obese, in no acute distress, paraplegic, alert and appropriate HEENT: NC/AT, normal sclerae, MMM CARDIO: reg rate, S1/2 heard without m/g/r LUNGS: CTAB, good diaphragmatic excursion ABD: +BS, soft, non-tender, non-distended, no rebound or guarding, colostomy bag in place-normal stool seen in bag EXTREMITY: R PICC in place, no LE swelling or edema, extremities are warm and well-perfused. LLE: L knee effusion with erythema and well-healed incision vertically which is erythematous. RLE has some anterior lower leg erythema unchanged from yesterday. NEURO: paraplegic, otherwise very deconditioned and difficult to assess, mentating clearly MUSC: very deconditioned. SKIN: warm and dry and as above. Laboratory Results: 05/31/17 05:32 06/01/17 05:39 Test 05/29/17 14:40 05/29/17 21:00 05/30/17 01:57 05/31/17 00:00 Nucleated RBC Absolute Count (auto) 0.03 K/uL (0-0) Nucleated Red Blood Cells % 0.3 % Osmolality 284 mOsm/kg (280-300) Total Bilirubin 0.3 mg/dl (0.2-1) Aspartate Amino Transf (AST/SGOT) 35 U/L (15-37) Alanine Aminotransferase (ALT/SGPT) 38 U/L (12-78) Alkaline Phosphatase 151 U/L (45-117) Total Creatine Kinase 87 U/L (39-308) Creatine Kinase MB 2.6 ng/ml (0.5-3.6) Creatine Kinase MB Ratio 3.0 (0-3.0) Total Protein 8.6 gm/dl (6.4-8.2) Albumin 2.6 gm/dl (3.4-5.0) Globulin 6.0 gm/dl (2.5-4.0) Albumin/Globulin Ratio 0.4 (0.9-2) Procalcitonin 0.17 ng/ml (0-0.5) Chemistry Specimen Hemolysis Urine Color YELLOW Urine Appearance CLEAR (CLEAR) Urine pH 6.0 (4.5-7.5) Urine Specific [place] 1.009 (1.000-1.030) Urine Protein NEG (NEG) Urine Glucose (UA) NEG (NEG) Urine Ketones NEG (NEG) Urine Occult Blood 3+ (NEG) Urine Nitrite NEG (NEG) Urine Bilirubin NEG (NEG) Urine Urobilinogen NEG (NEG) Urine Leukocyte Esterase MODERATE (NEG) Urine WBC (Auto) 10-30 /hpf (0-5) Urine RBC (Auto) 10-30 /hpf (0-4) Urine Hyaline Casts (Auto) 5-10 /lpf (0-5) Urine Epithelial Cells (Auto) >30 /lpf (0-5) Urine Bacteria (Auto) NEG (NEG) Urine Renal Epithelial Cells /lpf (0-5) Urine Osmolality 240 mOms/kg (500-800) Immature Granulocyte % (Auto) 1.5 % White Blood Count 9.31 K/uL (4.8-10.8) Red Blood Count 4.04 M/uL (4.7-6.1) Hemoglobin 10.0 g/dL (14.0-18.0) Hematocrit 32.0 % (42-52) Mean Corpuscular Volume 79.2 fL (80-100) Mean Corpuscular Hemoglobin 24.8 pg (25-34) Mean Corpuscular Hemoglobin Concent 31.3 g/dl (32-36) Platelet Count 210 K/uL (130-400) Mean Platelet Volume 9.0 fL (7.4-10.4) Neutrophils (%) (Auto) 74.3 % Lymphocytes (%) (Auto) 10.6 % Monocytes (%) (Auto) 8.2 % Eosinophils (%) (Auto) 5.2 % Basophils (%) (Auto) 0.2 % Neutrophils # (Auto) 6.92 K/uL (1.4-6.5) Lymphocytes # (Auto) 0.99 K/uL (1.2-3.4) Monocytes # (Auto) 0.76 K/uL (0.11-0.59) Eosinophils # (Auto) 0.48 K/uL (0-0.5) Basophils # (Auto) 0.02 K/uL (0-0.2) Immature Granulocyte # (Auto) 0.14 K/uL (0.00-0.02) Activated Partial Thromboplast Time 43.9 SECONDS (21.0-31.0) Partial Thromboplastin Ratio 1.7 Troponin I < 0.015 ng/ml (0-0.045) Urine Random Creatinine 60.4 mg/dl Urine Random Sodium 65 mEq/L Test 05/31/17 05:32 06/01/17 05:39 06/01/17 16:53 Red Blood Count 3.90 M/uL (4.7-6.1) Mean Corpuscular Volume 81.0 fL (80-100) Mean Corpuscular Hemoglobin 24.4 pg (25-34) Mean Corpuscular Hemoglobin Concent 30.1 g/dl (32-36) RDW Standard Deviation 50.9 fL (36.4-46.3) RDW Coefficient of Variation 17.3 % (11.5-14.5) Mean Platelet Volume 9.6 fL (7.4-10.4) Prothrombin Time 21.4 SECONDS (9.0-12.0) Prothromb Time International Ratio 1.9 (0.9-1.1) Anion Gap 7.0 mmol/L (3-11) Est Creatinine Clear Calc Drug Dose 47.0 ml/min Estimated GFR () 49.6 Estimated GFR (Non- 42.8 BUN/Creatinine Ratio 12.4 (10-20) Calcium Level 8.4 mg/dl (8.5-10.1) Magnesium Level 1.8 mg/dl (1.8-2.4) Random Vancomycin Level 20.1 mcg/ml Bedside Glucose 105 mg/dl (70-99) Date/Time Source Procedure Growth Status 05/29/17 15:09 Blood Blood Culture - Preliminary NO GROWTH TO DATE. Resulted 05/29/17 00:00 Sputum Expectorated Sputum Gram Stain - Final Complete 05/29/17 00:00 Sputum Expectorated Sputum Sputum Culture - Final LIGHT NORMAL JACKI. Complete 05/29/17 21:00 Urine,Catheterized Urine Culture - Final Pseudomonas Aeruginosa Complete Last 24 Hours Test 05/31/17 16:26 05/31/17 20:20 06/01/17 05:39 06/01/17 06:31 Bedside Glucose 174 mg/dl 157 mg/dl 97 mg/dl Prothrombin Time 21.4 SECONDS Prothromb Time International Ratio 1.9 Sodium Level 134 mmol/L Potassium Level 3.5 mmol/L Chloride Level 97 mmol/L Carbon Dioxide Level 30 mmol/L Anion Gap 7.0 mmol/L Blood Urea Nitrogen 19 mg/dl Creatinine 1.56 mg/dl Est Creatinine Clear Calc Drug Dose 47.0 ml/min Estimated GFR () 49.6 Estimated GFR (Non- 42.8 BUN/Creatinine Ratio 12.4 Random Glucose 94 mg/dl Calcium Level 8.4 mg/dl Magnesium Level 1.8 mg/dl Random Vancomycin Level 20.1 mcg/ml Assessment & Plan 77 yo M with 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 He was admitted and placed on broad spectrum antibiotics with Zosyn added to his chronic Vancomycin. He was still lethargic on HD 2 but then became more awake and is conversing as of HD3. He is still requiring oxygen which he is not on at home, but this is improving also from 3L to 2L via nasal canula. He remains afebrile. He is tolerating PO and is otherwise asymptomatic. He is tolerating PO and mentating at baseline. 1. Acute hypoxic respiratory failure 2/2 HCAP Pneumonia: no respiratory distress, cont IV Vancomycin and Zosyn. Blood cultures reveal no growth to date. Cont Duonebs and oxygen. Added flutter valve and incentive spirometry. Monitor for improvement of hypoxia. 2. CLINTON-urine lytes ordered. Fena is 1.2%. Uncertain etiology. Cantrell in place. IVF today. Repeat PRP in am. 5. h/o recurrent UTIs: 2/2 indwelling Cantrell in setting of neurogenic bladder. Urine culture grew 50K Pseudomonas. Pt remains on broad spectrum abx for infections in knee and lungs. 6. 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 Continues on suppressive therapy with Vancomycin. 7. DMII-uncontrolled with A1C of 12 in Mar 2017. Cont ISS with carb coverage and Glargine. Apprec glycemic pharmacist recs. 8. PAF-SR on admission EKG. Continues on home sotalol and INR therapeutic on current dose of coumadin. 9. CAD-stable, no chest pain or other active symptoms reported. Cont ASA, statin. 10. Anemia-chronic, stable. No indication for transfusion at this time. DVT PPx: On coumadin Code status: FULL CODE (admitting team discussed this with the half-way on admission) Dispo: Discharge planning back to [facility] once medically stable with resolution of hypoxia. Will cont with IV Vanc through PICC indefinitely DO Azar Mccrary Hospitalist Consultants: Misty GRAYSON Current Inpatient Medications: Current Inpatient Medications Medications (Trade) Dose Ordered Sig/Betzy Route Start Time Stop Time Status Last Admin Dose Admin Albuterol/ Ipratropium (Duoneb) 3 ml QIDR INH 05/29/17 20:00 06/28/17 19:59 06/01/17 11:14 3 ML Vancomycin HCl (Consult) 1 ea UD PRN N/A 05/29/17 20:09 06/28/17 20:08 Miscellaneous Information (Consult Glycemic Management Pharmacy) 1 UD N/A 05/29/17 18:37 06/28/17 18:36 Al Hydrox/Mg Hydrox/Simethicone (Maalox Max Susp) 15 ml Q4H PRN PO 05/29/17 16:45 06/28/17 16:44 Ondansetron HCl (Zofran Inj) 4 mg Q6H PRN IV 05/29/17 16:45 12/17/17 16:44 Amlodipine Besylate (Norvasc Tab) 5 mg DAILY PO 05/30/17 09:00 06/29/17 08:59 06/01/17 10:38 5 MG Aspirin (Ecotrin Tab) 81 mg DAILY PO 05/30/17 09:00 06/29/17 08:59 06/01/17 10:37 81 MG Atorvastatin Calcium (Lipitor Tab) 40 mg HS PO 05/29/17 21:00 06/28/17 20:59 05/31/17 20:45 40 MG Magnesium Hydroxide (Milk Of Magnesia Susp) 30 ml DAILY PRN PO 05/29/17 17:00 06/28/17 16:59 Nystatin (Mycostatin Crm) 1 appln BID EXT 05/29/17 21:00 06/28/17 20:59 06/01/17 10:50 1 APPLN Pantoprazole Sodium (Protonix Tab) 40 mg DAILY PO 05/30/17 09:00 06/29/17 08:59 06/01/17 10:37 40 MG Senna/Docusate Sodium (Senokot S Tab) 1 tab BID PO 05/29/17 21:00 06/28/17 20:59 05/31/17 20:44 1 TAB Sotalol HCl (Betapace Tab) 80 mg DAILY PO 05/30/17 09:00 06/29/17 08:59 06/01/17 10:38 80 MG Warfarin Sodium (Coumadin Tab) 2.5 mg DAILY@1600 PO 05/29/17 21:00 06/28/17 20:59 05/31/17 15:59 2.5 MG Piperacillin Sod/ Tazobactam Sod (Consult) 1 ea UD PRN N/A 05/29/17 20:15 06/28/17 20:14 Piperacillin Sod/ Tazobactam Sod 3.375 gm/Dextrose 115 ml @ 28.75 mls/ hr Q8H IV 05/29/17 22:00 06/05/17 21:59 06/01/17 05:39 28.75 MLS/HR Heparin Sodium (Porcine) (Heparin 10 Unit/ ml 5 ml Flush) 5 ml PRN PRN FLUSH 05/30/17 01:00 06/29/17 00:59 Pregabalin (Lyrica Cap) 100 mg BID PO 05/31/17 09:00 06/30/17 08:59 06/01/17 10:49 100 MG Tramadol HCl (Ultram Tab) 50 mg Q6H PRN PO 05/30/17 15:45 06/29/17 15:44 06/01/17 03:56 50 MG Guaifenesin (Robitussin Sugar Free Syrup) 100 mg Q6H PRN PO 05/30/17 21:30 06/29/17 21:29 06/01/17 03:56 100 MG Insulin Aspart (novoLOG ASPART) SLIDING SCALE ACHS SC 05/31/17 07:00 06/30/17 06:59 06/01/17 10:43 12 UNITS Insulin Glargine (Lantus Solostar Pen) SEE PROTOCOL TEXT BID SC 05/31/17 21:00 06/30/17 20:59 06/01/17 10:44 15 UNITS Vancomycin HCl 1000 mg/Sodium Chloride 270 ml @ 125 mls/hr TODAY@1100 ONCE IV 06/01/17 11:00 06/01/17 13:09 06/01/17 10:54 125 MLS/HR
[2017-06-01] MEDS: SODIUM CHLORIDE 0.9% 1000ML 1,000 ML IV SCH (18:39)
--- NOTE | 2017-06-01 20:16 | Infectious Disease Progress Nt ---
Progress Note Date of Service Jun 01, 2017. Subjective Pt evaluation today including: conversation w/ patient, physical exam, chart review, lab review, review of studies, conversation w/ validation consultant, review of inpatient medication list patient appears somewhat improved today. States less short of breath. No fever. Tolerating antibiotics without apparent difficulty. All Other Systems: Reviewed and Negative Medications Current Inpatient Medications Medications (Trade) Dose Ordered Sig/Betzy Route Start Time Stop Time Status Last Admin Dose Admin Albuterol/ Ipratropium (Duoneb) 3 ml QIDR INH 05/29/17 20:00 06/28/17 19:59 06/01/17 19:52 3 ML Vancomycin HCl (Consult) 1 ea UD PRN N/A 05/29/17 20:09 06/28/17 20:08 Miscellaneous Information (Consult Glycemic Management Pharmacy) 1 ea UD N/A 05/29/17 18:37 06/28/17 18:36 Al Hydrox/Mg Hydrox/Simethicone (Maalox Max Susp) 15 ml Q4H PRN PO 05/29/17 16:45 06/28/17 16:44 06/01/17 17:47 15 ML Ondansetron HCl (Zofran Inj) 4 mg Q6H PRN IV 05/29/17 16:45 06/28/17 16:44 06/01/17 15:25 4 MG Amlodipine Besylate (Norvasc Tab) 5 mg DAILY PO 05/30/17 09:00 06/29/17 08:59 06/01/17 10:38 5 MG Aspirin (Ecotrin Tab) 81 mg DAILY PO 05/30/17 09:00 06/29/17 08:59 06/01/17 10:37 81 MG Atorvastatin Calcium (Lipitor Tab) 40 mg HS PO 05/29/17 21:00 06/28/17 20:59 05/31/17 20:45 40 MG Magnesium Hydroxide (Milk Of Magnesia Susp) 30 ml DAILY PRN PO 05/29/17 17:00 06/28/17 16:59 Nystatin (Mycostatin Crm) 1 appln BID EXT 05/29/17 21:00 06/28/17 20:59 06/01/17 10:50 1 APPLN Pantoprazole Sodium (Protonix Tab) 40 mg DAILY PO 05/30/17 09:00 06/29/17 08:59 06/01/17 10:37 40 MG Senna/Docusate Sodium (Senokot S Tab) 1 tab BID PO 05/29/17 21:00 06/28/17 20:59 06/01/17 12:32 1 TAB Sotalol HCl (Betapace Tab) 80 mg DAILY PO 05/30/17 09:00 06/29/17 08:59 06/01/17 10:38 80 MG Warfarin Sodium (Coumadin Tab) 2.5 mg DAILY@1600 PO 05/29/17 21:00 06/28/17 20:59 06/01/17 16:20 2.5 MG Piperacillin Sod/ Tazobactam Sod (Consult) 1 ea UD PRN N/A 05/29/17 20:15 06/28/17 20:14 Piperacillin Sod/ Tazobactam Sod 3.375 gm/Dextrose 115 ml @ 28.75 mls/ hr Q8H IV 05/29/17 22:00 06/05/17 21:59 06/01/17 15:17 28.75 MLS/HR Heparin Sodium (Porcine) (Heparin 10 Unit/ ml 5 ml Flush) 5 ml PRN PRN FLUSH 05/30/17 01:00 06/29/17 00:59 06/01/17 13:11 5 ML Pregabalin (Lyrica Cap) 100 mg BID PO 05/31/17 09:00 06/30/17 08:59 06/01/17 10:49 100 MG Tramadol HCl (Ultram Tab) 50 mg Q6H PRN PO 05/30/17 15:45 06/29/17 15:44 06/01/17 20:10 50 MG Guaifenesin (Robitussin Sugar Free Syrup) 100 mg Q6H PRN PO 05/30/17 21:30 06/29/17 21:29 06/01/17 03:56 100 MG Insulin Aspart (novoLOG ASPART) SLIDING SCALE ACHS SC 05/31/17 07:00 06/30/17 06:59 06/01/17 17:17 2 UNITS Insulin Glargine (Lantus Solostar Pen) SEE PROTOCOL TEXT BID SC 05/31/17 21:00 06/30/17 20:59 06/01/17 10:44 15 UNITS Sodium Chloride 1,000 ml @ 100 mls/hr Q10H IV 06/01/17 18:00 06/02/17 13:59 06/01/17 18:39 100 MLS/HR Objective Vital Signs Date Time Temp Pulse Resp B/P (MAP) Pulse Ox O2 Delivery O2 Flow Rate FiO2 06/01/17 19:52 68 18 85 Room Air 06/01/17 16:00 Nasal Cannula 3.0 06/01/17 14:56 68 18 94 Nasal Cannula 3.0 06/01/17 14:22 36.9 65 18 91 3.0 06/01/17 14:08 36.9 65 18 133/85 (101) 91 Nasal Cannula 3.0 06/01/17 12:32 36.9 75 20 133/74 (93) 91 Nasal Cannula 2.0 06/01/17 12:00 Nasal Cannula 2.0 06/01/17 11:14 76 18 90 Nasal Cannula 2.0 06/01/17 10:10 90 Nasal Cannula 1.0 06/01/17 10:00 88 Room Air 06/01/17 08:18 36.9 83 18 134/79 (97) 90 Nasal Cannula 06/01/17 08:00 94 Nasal Cannula 2.0 06/01/17 07:13 71 18 93 Nasal Cannula 3.0 06/01/17 04:00 Nasal Cannula 2.0 06/01/17 03:40 37.0 76 19 124/72 (89) 91 Nasal Cannula 3.0 06/01/17 00:25 37.0 71 15 131/72 (91) 90 Nasal Cannula 2.0 06/01/17 00:06 Nasal Cannula 2.0 Physical Exam General Appearance: WD/WN, no apparent distress, + pertinent finding ( Chronically ill-appearing) Eyes: normal inspection, EOMI, sclerae normal ENT: normal ENT inspection, pharynx normal Neck: supple, no adenopathy, trachea midline Respiratory/Chest: chest non-tender, no respiratory distress, + rales Cardiovascular: regular rate, rhythm, no gallop, no murmur Abdomen: normal bowel sounds, non tender, soft, no organomegaly Extremities: no calf tenderness, + pertinent finding ( left knee unchanged) Neurologic/Psychiatric: alert, oriented x 3 Skin: normal color, no rash Lymphatic: no adenopathy Laboratory Results Last 24 Hours Test 05/31/17 20:20 06/01/17 05:39 06/01/17 06:31 06/01/17 11:22 Bedside Glucose 157 mg/dl 97 mg/dl 204 mg/dl Prothrombin Time 21.4 SECONDS Prothromb Time International Ratio 1.9 Sodium Level 134 mmol/L Potassium Level 3.5 mmol/L Chloride Level 97 mmol/L Carbon Dioxide Level 30 mmol/L Anion Gap 7.0 mmol/L Blood Urea Nitrogen 19 mg/dl Creatinine 1.56 mg/dl Est Creatinine Clear Calc Drug Dose 47.0 ml/min Estimated GFR () 49.6 Estimated GFR (Non- 42.8 BUN/Creatinine Ratio 12.4 Random Glucose 94 mg/dl Calcium Level 8.4 mg/dl Magnesium Level 1.8 mg/dl Random Vancomycin Level 20.1 mcg/ml Test 06/01/17 16:53 Bedside Glucose 105 mg/dl Assessment and Plan Patient with chronically infected left TKA with MRSA, 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 Patient now with left lower lobe pneumonia. Pending further culture results, patient should be continued on vancomycin and Zosyn. Will need to continue on chronic suppressive therapy given his wish not to have further surgery of his knee. Will follow.
[2017-06-01] MEDS: ATORVASTATIN 40 MG TAB PO SCH (20:27)
[2017-06-01] MEDS: LIDODERM (LIDOCAINE) PATCH 5% TD SCH (22:47)
[2017-06-02] VITALS (54 sets, daily range): BP systolic 88–194; BP diastolic 56–94; PULSE 65–86; TEMP 36.7–37.9; O2SAT 70–100
[2017-06-02] MEDS ORDERED: MoRPHine SULFATE 2 MG/ML CARP ONE (00:10)
[2017-06-02] MEDS ORDERED: NURSING VERBAL MED ORDER ONE ×4 (00:15→14:45)
[2017-06-02] MEDS ORDERED: ALBUT/IPRATROP 3MG/0.5MG NEB 3 ML VIAL INH ONE (00:15)
[2017-06-02] MEDS ORDERED: MoRPHine SULFATE 2 MG/ML CARP IV STA (00:27)
[2017-06-02] MEDS ORDERED: LORAZEPAM INJ 1 MG in SYRINGE 0.5 ML IV ONE (00:30)
[2017-06-02] MEDS ORDERED: MAGNESIUM SULFATE 1GM / D5W 1 GM in PREMIXED IN D5W 100 ML IV STA (00:36)
[2017-06-02 00:44] LABS: ARTERIAL BLOOD GAS BASE EXCESS 2.2 mEq/L (-9-1.8); ARTERIAL BLOOD GAS HCO3 31 mmol/L (19-24); ARTERIAL BLOOD GAS PO2 40 mm/Hg (80-95); ARTERIAL BLOOD GAS pH 7.25 (7.35-7.45)
[2017-06-02 00:55] LABS: ALLEN TEST POS (POS)
[2017-06-02 00:56] LABS: O2 ADMINISTRATION 15 OXYMASK
[2017-06-02] MEDS ORDERED: NALOXONE HCL 0.4 MG/1 ML VIAL/CARP ONE (01:32)
[2017-06-02 02:08] LABS: IPAP 15; ISTAT ALLEN TEST Pass; ISTAT ARTERIAL BLOOD GAS HCO3 31 meq/L (19-24); ISTAT ARTERIAL BLOOD GAS PCO2 74 mmHg (35-46); ISTAT ARTERIAL BLOOD GAS PO2 85 mmHg (80-95); ISTAT ARTERIAL BLOOD GAS pH 7.23 (7.35-7.45); ISTAT CARBON DIOXIDE 33 mEq/l (24-31); ISTAT DELIVERY SYSTEM BIPAP; ISTAT FIO2 100 %; ISTAT RATE 19; ISTAT SITE L Radial
[2017-06-02] MEDS ORDERED: RAPID SEQUENCE INDUCTION BAG ONE (02:15)
[2017-06-02 02:16] LABS: BASO % 0.2 %; BASO ABS # 0.02 K/uL (0-0.2); COMPLETE YES; EOS % 2.7 %; HEMATOCRIT 31.7 % (42-52); IG% 1.6 %; LYMPH % 7.9 %; LYMPH ABS # 0.89 K/uL (1.2-3.4); MEAN CELL VOLUME 81.1 fL (80-100); MEAN CORPUSCULAR HEMOGLOBIN 25.3 pg (25-34); MEAN CORPUSCULAR HGB CONC 31.2 g/dl (32-36); MEAN PLATELET VOLUME 9.4 fL (7.4-10.4); MONO % 5.4 %; NEUT % 82.2 %; PLATELET COUNT 237 K/uL (130-400); RED BLOOD COUNT 3.91 M/uL (4.7-6.1); WHITE BLOOD COUNT 11.21 K/uL (4.8-10.8)
[2017-06-02 02:44] LABS: BUN/CREATININE RATIO 11.2 (10-20); CALCIUM 8.2 mg/dl (8.5-10.1); CREATININE 1.48 mg/dl (0.60-1.40); MAGNESIUM 2.2 mg/dl (1.8-2.4); POTASSIUM 3.7 mmol/L (3.5-5.1)
[2017-06-02] MEDS ORDERED: MIDAZOLAM 125MG/250ML D5W 250 ML IV PRN (02:44)
[2017-06-02 02:45] LABS: PHOSPHORUS 3.8 mg/dl (2.5-4.9)
[2017-06-02] MEDS: FENTANYL CITRATE INJ 50 MCG/1 ML 2 ML VIAL IV SCH ×11 (03:00→22:40)
[2017-06-02] MEDS: PANTOprazole INJ 40 MG in SYRINGE 0 ML IV SCH ×2 (03:03→10:25)
[2017-06-02] MEDS ORDERED: OPTIRAY 320 IV PRN (03:15)
--- NOTE | 2017-06-02 03:16 | Critical Care Consultation ---
Critical Care Consultation Date of Consultation: Jun 02, 2017. Attending Physician: Charo Monsalve DO Reason for Consultation: Hypercarbic Respiratory Failure History of Present Illness Homero Liner is a 77 yr old male who presented to [facility] for worsening cough with cold symptoms on 05/29. Patient was being actively treated for a left lower lobe pneumonia and was on the medical surgical floor on 06/01. Early the morning on 06/02 patient was transferred to telemetry status for altered mental status and placed on BiPAP for presumed elevated CO2 levels. It is absent this point in time that the patient had been on BiPAP for approximately 2 hours. I did ask Dr. Chung to touch base with family and clarify CODE STATUS. Family stated that patient wouldn't want to be intubated if it would be short-term. I called Dr. Morejon to provide him with the situation on this patient. I explained that patients respite try status had not improved over the course of 2 hours on BiPAP and would be transferred to the ICU for intubation. Dr. Morejon arrived patient was intubated with an 8.0 tube 24cm at the lip. Breath sounds were heard bilaterally by significantly diminished on the right. Pt was sedated on Versed and Fentanyl. After receiving 30 of Etomidate for RSI. He was placed on AC 14/500/5/100%. 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 Patient has a chronic left knee infection with known left knee arthroplasty that he refuses to have operated on. Surgeons have told him that he will require amputation to probably fix infection. Thus patient will not go to the operating room. Patient is being followed by Dr. Dong and is currently on Zosyn and vancomycin for prophylaxis. Patient's other past medical history includes A. fib on Coumadin, type 2 diabetes, neurogenic bladder with chronic indwelling Cantrell. Patient has recurrent UTIs and on this admission urine grew pseudomonas aeruginosa. Also treated for hypertension coronary artery disease. Patient does reside at local skilled nursing [facility]. He has had multiple admissions in the course of the last year. Most recent one being in March for UTI that grew Pseudomonas and Proteus. 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 Secondary to refusal of above-knee amputation patient has had a chronic PICC line and has been receiving vancomycin IV at skilled nursing since March. Patient was nonverbal and unresponsive to painful/verbal stimuli upon my examination. Therefore ROS could not be obtained secondary to condition and later intubation and sedation. 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 UTI (urinary tract infection) Warfarin anticoagulation Surgical Problems: H/O inguinal hernia repair H/O resection of large bowel H/O sinus surgery Status post hip hemiarthroplasty Status post removal right hip prosthesis Status post total knee replacement Family History Cerebral aneurysm BROTHER Colon cancer SISTER Diabetes mellitus MOTHER Heart disease FATHER MOTHER Hypertension FATHER Prostate cancer FATHER Stroke FATHER Social History Smoking Status: Former Smoker Drug Use: none Marital Status: single Housing Status: lives alone, skilled nursing Occupation Status: retired Allergies Coded Allergies: Latex (Verified Allergy, Mild, UNSURE - FROM [facility], 05/29/17) Macrolides and Ketolides (Verified Allergy, Unknown, [facility], 12/04/16) Azithromycin (Verified Adverse Reaction, Mild, nausea, 05/29/17) with nausea and diarrhea Home Medications Scheduled Acetaminophen (Tylenol), 1 TAB PO BID Amlodipine (Norvasc), 5 MG PO DAILY Aspirin (Aspirin Ec), 81 MG PO DAILY Atorvastatin (Lipitor), 40 MG PO HS Doxycycline Hyclate (Doxycycline Hyclate), 1 TAB PO BID Furosemide (Lasix), 40 MG PO QAM Heparin Sodium (Porcine) Lock (Heparin Lock Flush), 1 DOSE FLUSH DAILY Insulin Aspart (Novolog), 36 UNITS SC WM Insulin Glargine (Lantus), 42 UNITS SC HS Insulin Glargine (Lantus), 36 UNITS SC QAM Ipratropium-Albuterol (Duoneb), 1 TREATMENT INH Q4H Lactobacillus Acidophilus (Lactinex), 1 TAB PO BID Magnesium Hydroxide (Milk Of Magnesia), 30 ML PO PRN UD Metolazone (Zaroxolyn), 2.5 MG PO 2XWK Nystatin (Nystatin Cream), 1 APPLN TOP BID Pantoprazole Sodium (Protonix), 40 MG PO DAILY Polyvinyl Alcohol (Artificial Tears), 2 DROPS OPB QS Potassium Chloride (Potassium Chloride Er), 20 MEQ PO TID Pregabalin (Lyrica), 100 MG PO BID Sennosides-Docusate Sodium (Senexon-S), 1 TABS PO BID Sotalol Hcl (Sotalol Hcl), 80 MG PO DAILY Vancomycin HCl in Sodium Chlor (Vancomycin Hydrochloride/ 1-0.9 gm/250Ml-%), 1 GM IV Q72H Warfarin Sod (Coumadin), 2.5 MG PO DAILY Scheduled PRN Home O2 Therapy (Oxygen), 2 LITERS NA HS PRN for Shortness of Breath Tramadol (Ultram), 50 MG PO Q6 PRN for MOD-SEVERE PAIN 5-10 Miscellaneous Medications Sodium Chloride Flush (Normal Saline I.v. Flush), 20 ML IV Current Inpatient Medications Current Inpatient Medications Medications (Trade) Dose Ordered Sig/Betzy Route Start Time Stop Time Status Last Admin Dose Admin Albuterol/ Ipratropium (Duoneb) 3 ml QIDR INH 05/29/17 20:00 06/28/17 19:59 06/01/17 19:52 3 ML Vancomycin HCl (Consult) 1 ea UD PRN N/A 05/29/17 20:09 06/28/17 20:08 Miscellaneous Information (Consult Glycemic Management Pharmacy) 1 ea UD N/A 05/29/17 18:37 06/28/17 18:36 Al Hydrox/Mg Hydrox/Simethicone (Maalox Max Susp) 15 ml Q4H PRN PO 05/29/17 16:45 06/28/17 16:44 06/01/17 17:47 15 ML Ondansetron HCl (Zofran Inj) 4 mg Q6H PRN IV 05/29/17 16:45 06/28/17 16:44 06/01/17 15:25 4 MG Amlodipine Besylate (Norvasc Tab) 5 mg DAILY PO 05/30/17 09:00 06/29/17 08:59 06/01/17 10:38 5 MG Aspirin (Ecotrin Tab) 81 mg DAILY PO 05/30/17 09:00 06/29/17 08:59 06/01/17 10:37 81 MG Atorvastatin Calcium (Lipitor Tab) 40 mg HS PO 05/29/17 21:00 06/28/17 20:59 06/01/17 20:27 40 MG Magnesium Hydroxide (Milk Of Magnesia Susp) 30 ml DAILY PRN PO 05/29/17 17:00 06/28/17 16:59 Nystatin (Mycostatin Crm) 1 appln BID EXT 05/29/17 21:00 06/28/17 20:59 06/01/17 20:27 1 APPLN Pantoprazole Sodium (Protonix Tab) 40 mg DAILY PO 05/30/17 09:00 06/29/17 08:59 06/01/17 10:37 40 MG Senna/Docusate Sodium (Senokot S Tab) 1 tab BID PO 05/29/17 21:00 06/28/17 20:59 06/01/17 12:32 1 TAB Sotalol HCl (Betapace Tab) 80 mg DAILY PO 05/30/17 09:00 06/29/17 08:59 06/01/17 10:38 80 MG Warfarin Sodium (Coumadin Tab) 2.5 mg DAILY@1600 PO 05/29/17 21:00 06/28/17 20:59 06/01/17 16:20 2.5 MG Piperacillin Sod/ Tazobactam Sod (Consult) 1 ea UD PRN N/A 05/29/17 20:15 06/28/17 20:14 Piperacillin Sod/ Tazobactam Sod 3.375 gm/Dextrose 115 ml @ 28.75 mls/ hr Q8H IV 05/29/17 22:00 06/05/17 21:59 06/01/17 20:26 28.75 MLS/HR Heparin Sodium (Porcine) (Heparin 10 Unit/ ml 5 ml Flush) 5 ml PRN PRN FLUSH 05/30/17 01:00 06/29/17 00:59 06/01/17 13:11 5 ML Pregabalin (Lyrica Cap) 100 mg BID PO 05/31/17 09:00 06/30/17 08:59 06/01/17 20:37 100 MG Tramadol HCl (Ultram Tab) 50 mg Q6H PRN PO 05/30/17 15:45 06/29/17 15:44 06/01/17 20:10 50 MG Guaifenesin (Robitussin Sugar Free Syrup) 100 mg Q6H PRN PO 05/30/17 21:30 06/29/17 21:29 06/01/17 20:27 100 MG Insulin Aspart (novoLOG ASPART) SLIDING SCALE ACHS SC 05/31/17 07:00 06/30/17 06:59 06/01/17 17:17 2 UNITS Insulin Glargine (Lantus Solostar Pen) SEE PROTOCOL TEXT BID SC 05/31/17 21:00 06/30/17 20:59 06/01/17 20:30 15 UNITS Sodium Chloride 1,000 ml @ 100 mls/hr Q10H IV 06/01/17 18:00 06/02/17 13:59 06/01/17 18:39 100 MLS/HR Lidocaine (Lidoderm Patch 5%) 1 patch QAM TD 06/02/17 09:00 07/02/17 08:59 06/01/17 22:47 1 PATCH Miscellaneous (Remove Lidoderm Patch) 1 ea DAILY@21 N/A 06/02/17 08:59 07/02/17 08:58 Fentanyl Citrate (Fentanyl Inj) 50 mcg Q2H IV 06/02/17 03:00 06/16/17 02:59 Midazolam HCl 250 ml @ 0 mls/hr Q0M PRN IV 06/02/17 02:44 07/02/17 02:43 06/02/17 03:00 2 MLS/HR Pantoprazole Sodium 40 mg/ Syringe 10 ml @ 5 mls/min DAILY@1100 IV 06/02/17 03:00 07/02/17 02:59 06/02/17 03:03 5 MLS/MIN Ioversol (Optiray 320) 100 ml UD PRN IV 06/02/17 03:15 06/06/17 03:14 UNV Review of Systems Could not be obtained secondary to unresponsive altered mental status as well as later intubation sedation. Physical Exam Date Time Temp Pulse Resp B/P (MAP) Pulse Ox O2 Delivery O2 Flow Rate FiO2 06/02/17 01:33 74 91 100 06/02/17 00:55 76 18 93 BiPAP/CPAP 100 06/02/17 00:31 71 90 100 06/01/17 23:47 36.9 76 18 131/74 (93) 91 Nasal Cannula 5.0 06/01/17 19:52 68 18 85 Room Air 06/01/17 16:01 94 Nasal Cannula 3.0 06/01/17 16:00 Nasal Cannula 3.0 06/01/17 14:56 68 18 94 Nasal Cannula 3.0 06/01/17 14:22 36.9 65 18 91 3.0 06/01/17 14:08 36.9 65 18 133/85 (101) 91 Nasal Cannula 3.0 06/01/17 12:32 36.9 75 20 133/74 (93) 91 Nasal Cannula 2.0 06/01/17 12:00 Nasal Cannula 2.0 06/01/17 11:14 76 18 90 Nasal Cannula 2.0 06/01/17 10:10 90 Nasal Cannula 1.0 06/01/17 10:00 88 Room Air 06/01/17 08:18 36.9 83 18 134/79 (97) 90 Nasal Cannula 06/01/17 08:00 94 Nasal Cannula 2.0 06/01/17 07:13 71 18 93 Nasal Cannula 3.0 06/01/17 04:00 Nasal Cannula 2.0 06/01/17 03:40 37.0 76 19 124/72 (89) 91 Nasal Cannula 3.0 Vital Signs - as noted Laboratory Data - as noted Physical Exam: General -patient unresponsive, appears to be in some distress, tachypneic. Eyes - PERRL, No icterus, gaze conjugate ENT - Mucosa moist, no lesions or candidiasis, multiple missing teeth Neck - Supple, trachea midline, no masses or lymphadenopathy, no JVD or bruits Lungs - No paradoxical chest wall movement, severely diminished breath sounds R > L with diffuse bilateral rhonchi, Coarse bilaterally. no wheezes or rales, Heart - Reg rate and rhythm, No murmur, rubs, clicks, or gallops appreciated Abdomen -BS present, no bruits noted, tympanic to percussion, soft, nontender, distended, no organomegaly Extremities - Edema Noted, pedal pulses intact Neuro - Lacey Come Scale: 3 Prior to sedation and intubation Strength: Unable to access CN:PERRL, no facial asymmetry, uvula/tongue midline Laboratory Results Last 24 Hours Test 06/01/17 05:39 06/01/17 06:31 06/01/17 11:22 06/01/17 16:53 Prothrombin Time 21.4 SECONDS Prothromb Time International Ratio 1.9 Sodium Level 134 mmol/L Potassium Level 3.5 mmol/L Chloride Level 97 mmol/L Carbon Dioxide Level 30 mmol/L Anion Gap 7.0 mmol/L Blood Urea Nitrogen 19 mg/dl Creatinine 1.56 mg/dl Est Creatinine Clear Calc Drug Dose 47.0 ml/min Estimated GFR () 49.6 Estimated GFR (Non- 42.8 BUN/Creatinine Ratio 12.4 Random Glucose 94 mg/dl Calcium Level 8.4 mg/dl Magnesium Level 1.8 mg/dl Random Vancomycin Level 20.1 mcg/ml Bedside Glucose 97 mg/dl 204 mg/dl 105 mg/dl Test 06/01/17 20:14 06/02/17 00:30 06/02/17 01:44 06/02/17 01:54 Bedside Glucose 122 mg/dl 119 mg/dl Arterial Blood pH 7.25 Arterial Blood Partial Pressure CO2 73 mmHg Arterial Blood Partial Pressure O2 40 mm/Hg Arterial Blood HCO3 31 mmol/L Arterial Blood Oxygen Saturation 69.0 % Arterial Blood Base Excess 2.2 mEq/L Arterial Blood Gas Delivery 15 OXYMASK Junior Test POS Pass Blood Gas Sample Site L Radial Bedside Blood Gas pH (LAB) 7.23 Bedside Blood Gas pCO2 (LAB) 74 mmHg Bedside Blood Gas pO2 (LAB) 85 mmHg Bedside Blood Gas HCO3 (LAB) 31 meq/L Bedside Blood Gas Total CO2 33 mEq/l Bedside Blood Gas Base Excess (LAB) 4.0 meq/L Bedside Blood Gas O2 Saturation 94.0 % Oxygen Delivery Device BIPAP Bedside Oxygen Rate (breaths/min) 19 Bedside FiO2 100 % Blood Gas IPAP 15 Test 06/02/17 01:56 06/02/17 02:01 Sodium Level 132 mmol/L Potassium Level 3.7 mmol/L Chloride Level 95 mmol/L Carbon Dioxide Level 30 mmol/L Anion Gap 7.0 mmol/L Blood Urea Nitrogen 17 mg/dl Creatinine 1.48 mg/dl Est Creatinine Clear Calc Drug Dose 49.5 ml/min Estimated GFR () 52.9 Estimated GFR (Non- 45.6 BUN/Creatinine Ratio 11.2 Random Glucose 127 mg/dl Calcium Level 8.2 mg/dl Phosphorus Level 3.8 mg/dl Magnesium Level 2.2 mg/dl White Blood Count 11.21 K/uL Red Blood Count 3.91 M/uL Hemoglobin 9.9 g/dL Hematocrit 31.7 % Mean Corpuscular Volume 81.1 fL Mean Corpuscular Hemoglobin 25.3 pg Mean Corpuscular Hemoglobin Concent 31.2 g/dl Platelet Count 237 K/uL Mean Platelet Volume 9.4 fL Neutrophils (%) (Auto) 82.2 % Lymphocytes (%) (Auto) 7.9 % Monocytes (%) (Auto) 5.4 % Eosinophils (%) (Auto) 2.7 % Basophils (%) (Auto) 0.2 % Neutrophils # (Auto) 9.21 K/uL Lymphocytes # (Auto) 0.89 K/uL Monocytes # (Auto) 0.61 K/uL Eosinophils # (Auto) 0.30 K/uL Basophils # (Auto) 0.02 K/uL RDW Standard Deviation 50.7 fL RDW Coefficient of Variation 17.3 % Immature Granulocyte % (Auto) 1.6 % Immature Granulocyte # (Auto) 0.18 K/uL Nucleated RBC Absolute Count (auto) 0.02 K/uL Nucleated Red Blood Cells % 0.2 % Lactic Acid Level 0.6 mmol/L Procalcitonin 0.06 ng/ml Diagnostic Results 06/[address] with contrast: Endotracheal tube terminating slightly superior to the suad. Recommend retraction by 1-2 cm. Right upper extremity PICC with tip in the cavoatrial junction. Enteric tube with tip in the gastric body. No evidence of pulmonary embolism. No thoracic aortic dissection or aneurysm. Small to moderate bilateral pleural effusions. Consolidation noted throughout the right lung and the dependent left lower lobe. Findings may represent atelectasis with pneumonia not excluded. There is a smooth intralobular septal thickening seen within the left lung apex with groundglass opacities suggesting an element of pulmonary vascular congestion. Subcentimeter mediastinal lymph nodes. Likely reactive. Upper abdomen is unremarkable. No acute osseous abnormality. Markedly degenerative changes of both glenohumeral joints. Bilateral gynecomastia. Radiologist: Harsh Collazo MD Reat [id number] CT OF THE HEAD WITHOUT CONTRAST CLINICAL HISTORY: Altered mental status. COMPARISON STUDY: Head CT October 12, 2016. CT DOSE: 1375.95 mGy.cm TECHNIQUE: Helical axial images of the head were obtained without IV contrast. Automated exposure control was utilized for the study. A dose lowering technique was utilized adhering to the principles of ALARA. FINDINGS: No acute intracranial hemorrhage, midline shift or mass effect is present. Ventricular system is normal. Basilar cisterns are patent. There are no extra-axial collections. Mcdonnell-white differentiation is maintained. There are no findings to suggest acute dural sinus thrombosis or acute territorial infarct. There are no significant calvarial abnormalities. There are postsurgical findings within the sinuses. A left maxillary sinus air-fluid level is noted. There is moderate polypoid mucosal thickening of the left frontal sinus. There is mild mucosal thickening of the remainder of the sinuses. This has progressed since exam of October 12, 2016. IMPRESSION: 1. No acute intracranial findings. 2. Progression of paranasal sinus disease which may reflect acute on chronic sinusitis with a left maxillary sinus air-fluid level. Electronically signed by: Chad Mcintyre M.D. 05/29/2017 7:34 PM Dictated Date/Time: 05/29/2017 7:[address] OF THE LEFT KNEE WITHOUT CONTRAST CLINICAL HISTORY: Chronic left knee prosthesis infection. COMPARISON STUDY: Left knee ultrasound April 13, 2017 and left knee radiographs April 14, 2017. TECHNIQUE: Axial images of the left knee were obtained without IV contrast. Sagittal and coronal reconstructions were viewed. FINDINGS: Alignment of the constrained total left knee arthroplasty is anatomic. There is no periprosthetic fracture or lucency. Hardware is intact. There is a moderate-sized left knee joint effusion. There is a moderate amount of gas within the joint space. This was shown on radiographs of April 14, 2017. Cortical irregularity of the distal shaft of the left femur and proximal shaft of the left fibula is likely chronic. This is unchanged from earlier studies. Evaluation of the left knee is difficult due to streak artifact from the hardware. Note is made of a fluid attenuation anterior superior to the joint space. This measures approximately 5 x 3.3 cm. IMPRESSION: 1. Status post constrained total left knee arthroplasty. Hardware intact. No periprosthetic fracture or lucency. Cortical irregularity of the distal shaft of the left femur and the proximal shaft of the left tibia is likely chronic and related to remodeling. Study compromised due to streak artifact from the hardware. 2. Persistent gas within the left knee joint which was shown on radiographs of April 14, 2017. In the absence of recent intervention or open wound, this is concerning for an infectious process with septic arthritis. 3. Fluid attenuation along the anterior superior aspect of the joint space. This could reflect post surgical change or a fluid collection. Superimposed infection cannot be excluded on this exam. Electronically signed by: Chad Mcintyre M.D. 05/29/2017 7:46 PM Dictated Date/Time: 05/29/2017 7:35 PM _ CHEST ONE VIEW PORTABLE CLINICAL HISTORY: sob dyspnea COMPARISON STUDY: 04/11/2017 FINDINGS: Placement of PICC catheter in the right atrium. No evidence of pneumothorax. Developing parenchymal infiltrate left base. Right lung is clear. IMPRESSION: PICC catheter in the right atrium. No evidence pneumothorax. Early parenchymal infiltrate left base The above report was generated using voice recognition software. It may contain grammatical, syntax or spelling errors. Electronically signed by: Julian Vargas M.D. 05/29/2017 2:37 PM Dictated Date/Time: 05/29/2017 2:36 PM Assessment & Plan Reason Critically Ill: Patient is an 77-year-old male who is transferred to the ICU for Acute Hypercarbic Respiratory Failure. PLAN: Resp: * Intubated: 06/02 8.0 ET 24cm at lip * Retract 2 cm today * May likely require Bronchoscopy * Current Vent Settings: AC 15/500/5/100% * Not breathing over the vent at this time * AB.266/63.5/65/29 * Increased Rate to 16 and Peep to 10 * Repeat ABG as needed/with changes * Daily CXR and ABG qAM * Continue Broad Spectrum Coverage * ID Following * Continue Respiratory Regimen Neuro: * Continue Versed Infusion and Fentanyl PRN * Goal RASS -1; Rest Today CV: * Known History of HTN & CAD * SBP One teens * Monitor on telemetry * Continue ASA, Statin. Norvasc, Sotalol as tolerated * Check Troponin with AM Labs * Hemodynamically stable Fluids/Renal: * Creatinine improving, continue to monitor * Normal Saline @ 100 * Cantrell in place * Fluid Balance: Negative this admission (300cc) * Strict I&Os * Monitor PRP Daily ID: * ID Following * Appreciate Input * Continue Zosyn/Vanco Currently * Repeat Blood Cultures order (1 from PICC Line) * Negative Procal/Lactic Acid GI/Nutrition: * NPO * OG Tube 65cm, verified by CT * GI Prophylaxis in place Heme: * H&H 9.9/31.7, Stable * Plts 237 * Coags: 21.4/1.9 Endocrine: * Accu-Checks per protocol, started insulin infusion for 2 blood sugars greater than 180 * Will cut daily Lantus by 1/2 while NPO. Monitor Glucose per protocol CCT: 45 Minutes; This time is exclusive of all separately billable procedures. Thank you for involving us in the care of this patient. Please refer to Dr. Ashwin Morejon addendum for further recommendations. I have personally evaluated and examined this patient. I agree with assessment and plan of Tommy Zeng PA-C. Had extensive discussion with the patient's cousin who has been his medical decision maker for some time. Patient previously been a DO NOT RESUSCITATE, the decision was made to proceed with intubation as this may be a treatable and reversible cause and not true end-stage condition. When we discussed the case further the patient has expressed that he would not want heroic efforts done, he is repeatedly denied desire to undergo amputation of his and infected prosthesis. All family members, Dagoberto Souza R in agreement that the patient has been chronically critically ill and his frequency of hospitalizations has been increasing. Even if the patient is able to overcome this episode and pneumonia he will still require living in a skilled nursing and this has been a major sort of frustration for him as he was previously a very active hannah. At this point we will not escalate care in terms of bronchoscopy , he is on broad-spectrum antibiotics, infectious disease has been consult. We will median later and discuss long-term goals of care.
[2017-06-02] MEDS ORDERED: FENTANYL CITRATE 100 MCG 2 ML CARP IV ONE (03:30)
[2017-06-02] MEDS ORDERED: ETOMIDATE 2 MG/ML 20 ML VIAL IV ONE (03:30)
[2017-06-02 04:49] LABS: ISTAT ALLEN TEST Pass; ISTAT ARTERIAL BLOOD GAS HCO3 29 meq/L (19-24); ISTAT ARTERIAL BLOOD GAS PCO2 64 mmHg (35-46); ISTAT ARTERIAL BLOOD GAS PO2 65 mmHg (80-95); ISTAT ARTERIAL BLOOD GAS pH 7.27 (7.35-7.45); ISTAT CARBON DIOXIDE 31 mEq/l (24-31); ISTAT DELIVERY SYSTEM Ventilator; ISTAT FIO2 100 %; ISTAT PEEP 5; ISTAT RATE 14; ISTAT SITE R Radial; VE 6.1; Vt 500
[2017-06-02] MEDS: SODIUM CHLORIDE 0.9% 1000ML 1,000 ML IV SCH (04:55)
--- NOTE | 2017-06-02 06:20 | Procedure Note ---
Procedure Note Procedure Date Jun 02, 2017. (Alexandria Zeng PA-C) I was present and assisted during the entire procedure. The initial procedure was aborted Tommy Zeng I successfully completed the second attempt (Ashwin Morejon, D.OAlexis) Procedure Description Comments: Procedure Date: 06/02/17 Procedure: Endotracheal intubation Pre-procedure Diagnosis: Acute hypercarbic respiratory failure Post-procedure Diagnosis: same as above Prior to Procedure: Informed Consent: [Emergent] Attending: Staff: Zaria Morejon DO Procedure Performed by: Alexandria Zeng PA-C Indications: Acute Hypercarbic Respiratory Failure The identity of the patient was confirmed and a bedside time out was performed. Description of Procedure: Patient was evaluated and required intubation for respiratory failure. The patient was prepared in the usual fashion. A 4 MAC laryngoscope was used. An 8 Fr endotracheal tube was placed endotracheally with a Grade 3 view under direct visualization to 24 cm at the teeth. The endotracheal tube was noted to pass through the vocal cords. Chest rise was bilateral. Bilateral breath sounds were heard without air sounds in the abdomen. Mist was noted in the endotracheal tube. End-tidal CO2 measurement was positive. CT shows proper endotracheal tube placement. Complications: Failure to initially pass ET Tube; Dr. Morejon successfully attempted Findings: not applicable Specimens: not applicable Estimated blood loss: Zero (Alexandria Zeng PA-C)
[2017-06-02] MEDS: INSULIN ASPART 100 UNITS/ML 3 ML PEN SC SCH ×3 (06:30→17:57)
[2017-06-02 06:36] LABS: ISTAT ALLEN TEST Pass; ISTAT ARTERIAL BLOOD GAS HCO3 28 meq/L (19-24); ISTAT ARTERIAL BLOOD GAS PCO2 50 mmHg (35-46); ISTAT ARTERIAL BLOOD GAS PO2 114 mmHg (80-95); ISTAT ARTERIAL BLOOD GAS pH 7.36 (7.35-7.45); ISTAT CARBON DIOXIDE 29 mEq/l (24-31); ISTAT DELIVERY SYSTEM Ventilator; ISTAT FIO2 100 %; ISTAT PEEP 10; ISTAT RATE 16; ISTAT SITE R Radial; VE 6.9; Vt 500
[2017-06-02] MEDS: PIPERACILL/TAZOBAC IV 3.375 GM in DEXTROSE 5% 100ML IV SCH ×3 (06:47→22:14)
--- NOTE | 2017-06-02 07:19 | DIAGNOSTIC IMAGING REPORT ---
CHEST ONE VIEW PORTABLE HISTORY: ET OG Tube Placement COMPARISON: Chest 05/29/2017. FINDINGS: No pneumothorax. Small bilateral pleural effusions. Bibasilar densities have progressed. Left basilar density favors left lower lobe collapse. Hazy airspace opacity within the right midlung zone and diffuse interstitial vascular thickening. This likely represents pulmonary edema. Right PICC terminates in the superior cavoatrial junction. The tip the endotracheal tube is difficult to identify but appears to be positioned approximately 1.7 vision the suad. Nasogastric tube terminates below the diaphragm. IMPRESSION: 1. Suboptimal study. 2. However, there appears to be satisfactory support line placement as described above. 3. Progressive pulmonary edema, small bilateral pleural effusions, bibasilar densities. 4. Left basilar density favors left lower lobe collapse and the right medial lung base density may represent partial collapse of the right middle lobe. Electronically signed by: Jorge Veronica M.D. 06/02/2017 7:18 AM Dictated Date/Time: 06/02/2017 7:15 AM
--- NOTE | 2017-06-02 07:28 | DIAGNOSTIC IMAGING REPORT ---
CT SCAN OF THE CHEST WITH IV CONTRAST CLINICAL HISTORY: Respiratory failure. Hypoxia. COMPARISON STUDY: Chest CT scans dated 04/11/2017 and 06/20/2010. Chest x-ray dated 06/02/2017. TECHNIQUE: Following the IV administration of 95 cc of Optiray 320, CT scan of the thorax was performed from the thoracic inlet to the upper abdomen. Images are reviewed in the axial, sagittal, and coronal planes. IV contrast was administered without complication. A dose lowering technique was utilized adhering to the principles of ALARA. The examination is significantly degraded by streak artifact from the patient's arms which could not be elevated above the chest as well as by motion artifact. CT DOSE: 1264.83 mGy.cm FINDINGS: Thyroid: Imaged portions of the thyroid gland are normal in size and attenuation. Thoracic aorta: There is mild atherosclerotic calcification of the thoracic aorta, which is normal in caliber and demonstrates standard 3-vessel arch anatomy. No dissection is seen. Pulmonary vasculature: The main pulmonary arteries are mildly dilated suggesting pulmonary artery hypertension. There are no filling defects identified in the central pulmonary vessels to indicate pulmonary embolus. Note that this examination was not protocoled for evaluation of the pulmonary arteries. Heart: The heart is enlarged and without pericardial effusion. A PICC line is present in the right upper extremity. Lungs and pleural spaces: An endotracheal tube terminates at the level of the suad. Fluid/debris fills the bronchus intermedius. Evaluation of the lung parenchyma is significantly degraded by motion artifact. There are small bilateral pleural effusions. Loculated pleural fluid is seen at the right apex. There is dense airspace consolidation throughout the right lung. Dense consolidation is also seen in the left lower lung. More patchy consolidation is identified in the left upper lobe. Intralobular septal thickening is noted in the aerated left upper lobe. Mediastinum: Prominent mediastinal lymph nodes measure up to 11 mm in short axis. Fabi: Clear. Axillae: There is no axillary lymphadenopathy. Upper abdomen: The liver is enlarged and steatotic. An enteric tube terminates in the distal stomach. The partially visualized kidneys demonstrate cortical atrophy. Gynecomastia is observed. Subcentimeter cortical hypodensities in the upper pole of left kidney likely represent cysts but are too small for definitive characterization. An indeterminant 2.0 cm hyperdense lesion is seen in the right lobe of liver on image #[id number]. This was also seen on 04/11/2017. 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 Skeletal structures: The skeletal structures are osteopenic. No lytic or blastic bony lesions are seen. Advanced arthritic change and deformity is seen in the shoulders. There are numerous thoracic compression deformities. Degenerative change is noted throughout the thoracic spine. IMPRESSION: 1. Significantly streak and motion compromised examination. 2. An endotracheal tube terminates at the level of the suad. This should be pulled back. 3. There is dense airspace consolidation seen throughout the right lung and at the left lung base. This could represent atelectasis and/or pneumonia, and this appears significantly progressed from today's earlier chest x-ray. 4. There are small bilateral pleural effusions with loculated fluid seen at the right apex. 5. Cardiomegaly. 6. There is intralobular septal thickening with patchy groundglass consolidation in the aerated left upper lobe. This could represent a component of congestive failure and/or pneumonia. Clinical correlation will be required. 7. A right PICC line and enteric tube are in place. 8. Hepatomegaly and hepatic steatosis. 9. 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 10. Additional findings as above. Electronically signed by: Juan Garcia M.D. 06/02/2017 7:27 AM Dictated Date/Time: 06/02/2017 7:18 AM
[2017-06-02] MEDS: ALBUTEROL HFA 8 GM INHALER INH SCH ×4 (07:31→20:00)
[2017-06-02] MEDS: IPRATROPIUM BROMIDE HFA INHALER INH SCH ×4 (07:31→20:00)
[2017-06-02] MEDS: LIDODERM (LIDOCAINE) PATCH 5% TD SCH (08:26)
[2017-06-02] MEDS: NYSTATIN CR 15 GM TUBE EXT SCH ×2 (08:27→21:26)
--- NOTE | 2017-06-02 08:37 | DIAGNOSTIC IMAGING REPORT ---
CHEST ONE VIEW PORTABLE HISTORY: Left airway collapse. Verify ET tube placement COMPARISON: Chest 06/02/2017. FINDINGS: Endotracheal tube terminates 1.9 cm in the suad. Nasogastric tube terminates below the diaphragm. The tip is not included on this study. Right PICC terminates at the right atrium. Right basilar density persists and favors partial atelectasis/consolidation of the right middle lobe. Mild pulmonary edema and small bilateral pleural effusions are again noted. Improved aeration within the left lower lobe. IMPRESSION: 1. Improved aeration within the left lower lobe. 2. Satisfactory support line placement. 3. Pulmonary edema and small bilateral pleural effusions persist. 4. Opacification within the right medial lung base remains unchanged. This favors partial collapse/consolidation of the right middle lobe. Electronically signed by: Jorge Veronica M.D. 06/02/2017 8:36 AM Dictated Date/Time: 06/02/2017 8:34 AM
[2017-06-02] MEDS: AMLODIPINE BESYLATE 5 MG TAB PO SCH (09:00)
[2017-06-02] MEDS: PREGABALIN 100 MG CAP PO SCH (09:00)
[2017-06-02] MEDS ORDERED: SCOPOLAMINE 1.5 MG TDSY TD SCH (09:00)
[2017-06-02 09:02] LABS: INR 2.1 (0.9-1.1); PROTHROMBIN TIME (PATIENT) 22.7 SECONDS (9.0-12.0)
[2017-06-02] MEDS: SOTALOL HCL 80 MG TAB PO SCH (10:21)
[2017-06-02] MEDS: ASPIRIN 81 MG CHEW NG SCH (10:21)
[2017-06-02] MEDS: DOCUSATE SODIUM/SENNA 50/8.6MG TAB PO SCH ×2 (10:22→21:26)
[2017-06-02] MEDS: INSULIN GLARGINE SOLOSTAR 100 UNITS/ML 3 ML PEN SC SCH ×2 (10:24→21:27)
--- NOTE | 2017-06-02 10:24 | Pharmacy Progress Note ---
Pharmacy Glycemic Short Note 2 Date of Service Jun 02, 2017. 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 * Patient is known to our glycemic control service from prior hospitalizations. * Pt can require very little insulin to 100 + units of insulin per day * Pt intubated overnight and transferred to ICU for respiratory failure/ worsening lethargy * Pt's BSGs stable and did not spike post intubation * Fasting BSG this AM <100 mg/dL * If steroids initiated - insulin drip will be recommended * If not - pt will be NPO at this time and insulin will need scaled back PLAN FOR INPATIENT GLYCEMIC CONTROL: * Basal insulin: change to "scale/range based dosing" for uncertain needs with critical status/NPO * Lantus SQ BID - dosing based on bsg * BSG below 100 mg/dl --> 0 units * BSG 100-140 mg/dl --> 10 units * BSG 141 mg/dl - 180 mg/dl --> 15 units * BSG greater than 181 mg/dl --> 20 units * Bolus insulin: * NovoLog per scale Q6hrs while NPO * Goal Range: Low 120 mg/dL - High 150 mg/dL * Correction Factor: 15 mg/dL/unit * Nutritional / Prandial insulin per carb ratio of 1 unit per 5 grams CHO consumed
[2017-06-02 10:46] LABS: INFLUENZA A PCR Neg for Influ A (NEG); INFLUENZA B PCR Neg for Influ B (NEG)
[2017-06-02] MEDS ORDERED: NORMOSOL R 1,000 ML IV SCH (12:00)
--- NOTE | 2017-06-02 14:02 | Progress Note ---
Medicine Progress Note Date & Time of Visit: Jun 02, 2017 at ~ 11:30 . Subjective Worsening respiratory status during the night. Transferred to ICU and intubated. Unresponsive; unable to answer questions. . Objective Last 8 Hrs Date Time Temp Pulse Resp B/P (MAP) Pulse Ox O2 Delivery O2 Flow Rate FiO2 06/02/17 12:31 72 16 95/58 (70) 94 Mechanical Ventilator 100 06/02/17 12:16 72 16 89/58 (68) 94 Mechanical Ventilator 100 06/02/17 12:00 80 06/02/17 12:00 Mechanical Ventilator 80 06/02/17 12:00 37.9 65 16 92/59 (70) 94 Mechanical Ventilator 100 06/02/17 10:58 100 06/02/17 10:46 73 16 91/65 (74) 95 Mechanical Ventilator 100 06/02/17 10:31 73 16 96/64 (75) 95 Mechanical Ventilator 100 06/02/17 10:26 72 16 90/61 (71) 96 Mechanical Ventilator 100 06/02/17 10:16 67 12 88/66 (73) 97 Mechanical Ventilator 100 06/02/17 10:00 71 16 106/66 (79) 100 Mechanical Ventilator 100 06/02/17 08:00 37.4 74 16 100/62 (75) 100 Mechanical Ventilator 100 06/02/17 08:00 Mechanical Ventilator 100 06/02/17 08:00 100 06/02/17 08:00 Mechanical Ventilator 100 06/02/17 07:25 100 06/02/17 07:16 68 16 116/77 (90) 100 06/02/17 07:15 73 16 100 06/02/17 07:01 71 16 110/70 (83) 100 Mechanical Ventilator 100 06/02/17 07:00 71 16 100 06/02/17 06:50 100 06/02/17 06:46 72 16 111/71 (84) 100 06/02/17 06:45 72 16 100 06/02/17 06:31 72 16 110/67 (81) 100 06/02/17 06:30 73 16 100 06/02/17 06:16 72 16 116/70 (85) 100 06/02/17 06:15 73 16 100 06/02/17 06:08 73 16 118/70 (86) 100 Mechanical Ventilator 100 Physical Exam: General- no apparent distress Eyes- anicteric ENT- oral ETT, oral GT Neck- Lungs- scattered rhonchi Heart- RRR Abdomen- quiet, soft, nontender - [facility] Extremities- 2+ pretibial / pedal edema Neuro- sedated Skin- warm & dry . Laboratory Results: Last 24 Hours Test 06/01/17 16:53 06/01/17 20:14 06/02/17 00:30 06/02/17 01:44 Bedside Glucose 105 mg/dl 122 mg/dl 119 mg/dl Arterial Blood pH 7.25 Arterial Blood Partial Pressure CO2 73 mmHg Arterial Blood Partial Pressure O2 40 mm/Hg Arterial Blood HCO3 31 mmol/L Arterial Blood Oxygen Saturation 69.0 % Arterial Blood Base Excess 2.2 mEq/L Arterial Blood Gas Delivery 15 OXYMASK Junior Test POS Test 06/02/17 01:54 06/02/17 01:56 06/02/17 02:01 06/02/17 04:34 Blood Gas Sample Site L Radial R Radial Bedside Blood Gas pH (LAB) 7.23 7.27 Bedside Blood Gas pCO2 (LAB) 74 mmHg 64 mmHg Bedside Blood Gas pO2 (LAB) 85 mmHg 65 mmHg Bedside Blood Gas HCO3 (LAB) 31 meq/L 29 meq/L Bedside Blood Gas Total CO2 33 mEq/l 31 mEq/l Bedside Blood Gas Base Excess (LAB) 4.0 meq/L 2.0 meq/L Bedside Blood Gas O2 Saturation 94.0 % 88.0 % Junior Test Pass Pass Oxygen Delivery Device BIPAP Ventilator Bedside Oxygen Rate (breaths/min) 19 14 Bedside FiO2 100 % 100 % Blood Gas IPAP 15 Sodium Level 132 mmol/L Potassium Level 3.7 mmol/L Chloride Level 95 mmol/L Carbon Dioxide Level 30 mmol/L Anion Gap 7.0 mmol/L Blood Urea Nitrogen 17 mg/dl Creatinine 1.48 mg/dl Est Creatinine Clear Calc Drug Dose 49.5 ml/min Estimated GFR () 52.9 Estimated GFR (Non- 45.6 BUN/Creatinine Ratio 11.2 Random Glucose 127 mg/dl Calcium Level 8.2 mg/dl Phosphorus Level 3.8 mg/dl Magnesium Level 2.2 mg/dl White Blood Count 11.21 K/uL Red Blood Count 3.91 M/uL Hemoglobin 9.9 g/dL Hematocrit 31.7 % Mean Corpuscular Volume 81.1 fL Mean Corpuscular Hemoglobin 25.3 pg Mean Corpuscular Hemoglobin Concent 31.2 g/dl Platelet Count 237 K/uL Mean Platelet Volume 9.4 fL Neutrophils (%) (Auto) 82.2 % Lymphocytes (%) (Auto) 7.9 % Monocytes (%) (Auto) 5.4 % Eosinophils (%) (Auto) 2.7 % Basophils (%) (Auto) 0.2 % Neutrophils # (Auto) 9.21 K/uL Lymphocytes # (Auto) 0.89 K/uL Monocytes # (Auto) 0.61 K/uL Eosinophils # (Auto) 0.30 K/uL Basophils # (Auto) 0.02 K/uL RDW Standard Deviation 50.7 fL RDW Coefficient of Variation 17.3 % Immature Granulocyte % (Auto) 1.6 % Immature Granulocyte # (Auto) 0.18 K/uL Nucleated RBC Absolute Count (auto) 0.02 K/uL Nucleated Red Blood Cells % 0.2 % Lactic Acid Level 0.6 mmol/L Procalcitonin 0.06 ng/ml Blood Gas Minute Ventilation 6.1 Blood Gas Tidal Volume 500 Blood Gas PEEP 5 Test 06/02/17 06:21 06/02/17 06:25 06/02/17 08:30 06/02/17 08:39 Blood Gas Sample Site R Radial Bedside Blood Gas pH (LAB) 7.36 Bedside Blood Gas pCO2 (LAB) 50 mmHg Bedside Blood Gas pO2 (LAB) 114 mmHg Bedside Blood Gas HCO3 (LAB) 28 meq/L Bedside Blood Gas Total CO2 29 mEq/l Bedside Blood Gas Base Excess (LAB) 2.0 meq/L Bedside Blood Gas O2 Saturation 98.0 % Junior Test Pass Oxygen Delivery Device Ventilator Bedside Oxygen Rate (breaths/min) 16 Blood Gas Minute Ventilation 6.9 Bedside FiO2 100 % Blood Gas Tidal Volume 500 Blood Gas PEEP 10 Troponin I 0.023 ng/ml Influenza Type A (RT-PCR) Neg for Influ A Influenza Type B (RT-PCR) Neg for Influ B Prothrombin Time 22.7 SECONDS Prothromb Time International Ratio 2.1 Test 06/02/17 09:37 06/02/17 12:35 Bedside Glucose 95 mg/dl 100 mg/dl Date/Time Source Procedure Growth Status 06/02/17 02:23 Blood Blood Culture Pending Received 06/02/17 02:02 Blood Blood Culture Pending Received Assessment & Plan ACUTE RESPIRATORY FAILURE Worsening respiratory failure last night requiring intubation / mechanical ventilation. ? due to worsening pneumonia, mucus plugging, ARDS. Management per CCM. PNEUMONIA Presented with cough and SOB. Chest x-ray showed infiltrate left base. Blood cultures obtained. IV vancomycin continued and piperacillin / tazobactam initiated. ALTERED MENTAL STATUS Confused at time of presentation. Probable encephalopathy secondary to pneumonia. CORONARY ARTERY DISEASE Continue aspirin and sotalol. PAROXYSMAL ATRIAL FIB Continue sotalol and warfarin. CHRONIC HYPERCAPNIC RESPIRATORY FAILURE Currently intubated. Resume CPAP after extubation. DM TYPE 2 Lantus / NovoLog per protocol. CHRONIC MRSA INFECTION LEFT KNEE Patient has declined surgical intervention. Continue IV vancomycin. BACTERURIA Urine culture growing Pseudomonas aeruginosa. Has chronic Cantrell catheter. Colonization vs infection? Receiving piperacillin / tazobactam for pneumonia. CHRONIC URINARY RETENTION Continue Cantrell cath; change before discharge. VTE PROPHYLAXIS Warfarin. DISPOSITION Critically ill. Discharge disposition to be determined. . Consultants: ID, Ortho Current Inpatient Medications: Current Inpatient Medications Medications (Trade) Dose Ordered Sig/Betzy Route Start Time Stop Time Status Last Admin Dose Admin Vancomycin HCl (Consult) 1 ea UD PRN N/A 05/29/17 20:09 06/28/17 20:08 Miscellaneous Information (Consult Glycemic Management Pharmacy) 1 ea UD N/A 05/29/17 18:37 06/28/17 18:36 Al Hydrox/Mg Hydrox/Simethicone (Maalox Max Susp) 15 ml Q4H PRN PO 05/29/17 16:45 06/28/17 16:44 06/01/17 17:47 15 ML Ondansetron HCl (Zofran Inj) 4 mg Q6H PRN IV 05/29/17 16:45 06/28/17 16:44 06/01/17 15:25 4 MG Amlodipine Besylate (Norvasc Tab) 5 mg DAILY PO 05/30/17 09:00 06/29/17 08:59 06/01/17 10:38 5 MG Atorvastatin Calcium (Lipitor Tab) 40 mg HS PO 05/29/17 21:00 06/28/17 20:59 06/01/17 20:27 40 MG Magnesium Hydroxide (Milk Of Magnesia Susp) 30 ml DAILY PRN PO 05/29/17 17:00 06/28/17 16:59 Nystatin (Mycostatin Crm) 1 appln BID EXT 05/29/17 21:00 06/28/17 20:59 06/02/17 08:27 1 APPLN Senna/Docusate Sodium (Senokot S Tab) 1 tab BID PO 05/29/17 21:00 06/28/17 20:59 06/02/17 10:22 1 TAB Sotalol HCl (Betapace Tab) 80 mg DAILY PO 05/30/17 09:00 06/29/17 08:59 06/02/17 10:21 80 MG Warfarin Sodium (Coumadin Tab) 2.5 mg DAILY@1600 PO 05/29/17 21:00 06/28/17 20:59 06/01/17 16:20 2.5 MG Piperacillin Sod/ Tazobactam Sod (Consult) 1 ea UD PRN N/A 05/29/17 20:15 06/28/17 20:14 Piperacillin Sod/ Tazobactam Sod 3.375 gm/Dextrose 115 ml @ 28.75 mls/ hr Q8H IV 05/29/17 22:00 06/05/17 21:59 06/02/17 06:47 28.75 MLS/HR Heparin Sodium (Porcine) (Heparin 10 Unit/ ml 5 ml Flush) 5 ml PRN PRN FLUSH 05/30/17 01:00 06/29/17 00:59 06/01/17 13:11 5 ML Pregabalin (Lyrica Cap) 100 mg BID PO 05/31/17 09:00 06/30/17 08:59 Future Hold 06/01/17 20:37 100 MG Tramadol HCl (Ultram Tab) 50 mg Q6H PRN PO 05/30/17 15:45 06/29/17 15:44 06/01/17 20:10 50 MG Guaifenesin (Robitussin Sugar Free Syrup) 100 mg Q6H PRN PO 05/30/17 21:30 06/29/17 21:29 06/01/17 20:27 100 MG Insulin Glargine (Lantus Solostar Pen) SEE PROTOCOL TEXT BID SC 05/31/17 21:00 06/30/17 20:59 06/02/17 10:24 10 UNITS Lidocaine (Lidoderm Patch 5%) 1 patch QAM TD 06/02/17 09:00 07/02/17 08:59 06/02/17 08:26 1 PATCH Miscellaneous (Remove Lidoderm Patch) 1 ea DAILY@21 N/A 06/02/17 08:59 07/02/17 08:58 Fentanyl Citrate (Fentanyl Inj) 50 mcg Q2H IV 06/02/17 03:00 06/16/17 02:59 06/02/17 10:20 50 MCG Midazolam HCl 250 ml @ 0 mls/hr Q0M PRN IV 06/02/17 02:44 07/02/17 02:43 06/02/17 03:00 2 MLS/HR Pantoprazole Sodium 40 mg/ Syringe 10 ml @ 5 mls/min DAILY@1100 IV 06/02/17 03:00 07/02/17 02:59 06/02/17 10:25 5 MLS/MIN Ioversol (Optiray 320) 100 ml UD PRN IV 06/02/17 03:15 06/06/17 03:14 Ipratropium [place] (Atrovent Hfa Inhaler) 4 puffs QIDR INH 06/02/17 08:00 07/02/17 07:59 06/02/17 10:57 4 PUFFS Albuterol (Ventolin Hfa Inhaler) 4 puffs QIDR INH 06/02/17 08:00 07/02/17 07:59 06/02/17 10:58 4 PUFFS Insulin Aspart (novoLOG ASPART) SLIDING SCALE Q6 SC 06/02/17 06:30 07/02/17 06:29 Scopolamine (Transderm-Scop Patch) 1.5 mg Q72H TD 06/02/17 09:00 07/02/17 08:59 06/02/17 10:21 1.5 MG Miscellaneous (Remove Transderm-Scop Patch) 1 ea Q72H N/A 06/05/17 08:59 07/05/17 08:58 Miscellaneous Information (Check Scopolamine Patch Placement) 1 ea QS N/A 06/02/17 16:00 07/02/17 15:59 Aspirin (Aspirin Chew) 81 mg QAM NG 06/02/17 09:00 07/02/17 08:59 06/02/17 10:21 81 MG Doxycycline Hyclate 100 mg/ Dextrose 110 ml @ 50 mls/hr Q12H IV 06/02/17 13:00 06/09/17 12:59 Parenteral Electrolyte Solution 1,000 ml @ 75 mls/hr [id number] IV 06/02/17 12:00 07/02/17 11:59 06/02/17 12:33 75 MLS/HR
[2017-06-02] MEDS: DOXYCYCLINE IV 100 MG in DEXTROSE 5% 100ML 100 ML IV SCH (14:25)
[2017-06-02] MEDS: CHECK SCOPOLAMINE PATCH PLACEMENT SCH (16:00)
[2017-06-02] MEDS: LACTATED RINGER'S 1000ML 1,000 ML IV SCH (16:02)
[2017-06-02] MEDS: WARFARIN SOD 2.5 MG TAB PO SCH (16:02)
--- NOTE | 2017-06-02 16:55 | Infectious Disease Progress Nt ---
Progress Note Date of Service Jun 02, 2017. Subjective Pt evaluation today including: conversation w/ patient, physical exam, chart review, lab review, review of studies, conversation w/ solar energy consultant and designer, review of inpatient medication list Patient required intubation for respiratory failure. Now sedated on ventilator. Hemodynamically stable at present, temperature currently normal. Additional Comments: Not obtainable as patient is sedated on ventilator Medications Current Inpatient Medications Medications (Trade) Dose Ordered Sig/Betzy Route Start Time Stop Time Status Last Admin Dose Admin Vancomycin HCl (Consult) 1 ea UD PRN N/A 05/29/17 20:09 06/28/17 20:08 Miscellaneous Information (Consult Glycemic Management Pharmacy) 1 ea UD N/A 05/29/17 18:37 06/28/17 18:36 Al Hydrox/Mg Hydrox/Simethicone (Maalox Max Susp) 15 ml Q4H PRN PO 05/29/17 16:45 06/28/17 16:44 06/01/17 17:47 15 ML Ondansetron HCl (Zofran Inj) 4 mg Q6H PRN IV 05/29/17 16:45 06/28/17 16:44 06/01/17 15:25 4 MG Atorvastatin Calcium (Lipitor Tab) 40 mg HS PO 05/29/17 21:00 06/28/17 20:59 06/01/17 20:27 40 MG Magnesium Hydroxide (Milk Of Magnesia Susp) 30 ml DAILY PRN PO 05/29/17 17:00 06/28/17 16:59 Nystatin (Mycostatin Crm) 1 appln BID EXT 05/29/17 21:00 06/28/17 20:59 06/02/17 08:27 1 APPLN Senna/Docusate Sodium (Senokot S Tab) 1 tab BID PO 05/29/17 21:00 06/28/17 20:59 06/02/17 10:22 1 TAB Sotalol HCl (Betapace Tab) 80 mg DAILY PO 05/30/17 09:00 06/29/17 08:59 06/02/17 10:21 80 MG Warfarin Sodium (Coumadin Tab) 2.5 mg DAILY@1600 PO 05/29/17 21:00 06/28/17 20:59 06/02/17 16:02 2.5 MG Piperacillin Sod/ Tazobactam Sod (Consult) 1 ea UD PRN N/A 05/29/17 20:15 06/28/17 20:14 Piperacillin Sod/ Tazobactam Sod 3.375 gm/Dextrose 115 ml @ 28.75 mls/ hr Q8H IV 05/29/17 22:00 06/05/17 21:59 06/02/17 14:25 28.75 MLS/HR Heparin Sodium (Porcine) (Heparin 10 Unit/ ml 5 ml Flush) 5 ml PRN PRN FLUSH 05/30/17 01:00 06/29/17 00:59 06/01/17 13:11 5 ML Pregabalin (Lyrica Cap) 100 mg BID PO 05/31/17 09:00 06/30/17 08:59 Future Hold 06/01/17 20:37 100 MG Tramadol HCl (Ultram Tab) 50 mg Q6H PRN PO 05/30/17 15:45 06/29/17 15:44 06/01/17 20:10 50 MG Guaifenesin (Robitussin Sugar Free Syrup) 100 mg Q6H PRN PO 05/30/17 21:30 06/29/17 21:29 06/01/17 20:27 100 MG Insulin Glargine (Lantus Solostar Pen) SEE PROTOCOL TEXT BID SC 05/31/17 21:00 06/30/17 20:59 06/02/17 10:24 10 UNITS Lidocaine (Lidoderm Patch 5%) 1 patch QAM TD 06/02/17 09:00 07/02/17 08:59 06/02/17 08:26 1 PATCH Miscellaneous (Remove Lidoderm Patch) 1 ea DAILY@21 N/A 06/02/17 08:59 07/02/17 08:58 Fentanyl Citrate (Fentanyl Inj) 50 mcg Q2H IV 06/02/17 03:00 06/16/17 02:59 06/02/17 10:20 50 MCG Midazolam HCl 250 ml @ 0 mls/hr Q0M PRN IV 06/02/17 02:44 07/02/17 02:43 06/02/17 03:00 2 MLS/HR Pantoprazole Sodium 40 mg/ Syringe 10 ml @ 5 mls/min DAILY@1100 IV 06/02/17 03:00 07/02/17 02:59 06/02/17 10:25 5 MLS/MIN Ioversol (Optiray 320) 100 ml UD PRN IV 06/02/17 03:15 06/06/17 03:14 Ipratropium [place] (Atrovent Hfa Inhaler) 4 puffs QIDR INH 06/02/17 08:00 07/02/17 07:59 06/02/17 14:30 4 PUFFS Albuterol (Ventolin Hfa Inhaler) 4 puffs QIDR INH 06/02/17 08:00 07/02/17 07:59 06/02/17 14:30 4 PUFFS Insulin Aspart (novoLOG ASPART) SLIDING SCALE Q6 SC 06/02/17 06:30 07/02/17 06:29 Scopolamine (Transderm-Scop Patch) 1.5 mg Q72H TD 06/02/17 09:00 07/02/17 08:59 06/02/17 10:21 1.5 MG Miscellaneous (Remove Transderm-Scop Patch) 1 ea Q72H N/A 06/05/17 08:59 07/05/17 08:58 Miscellaneous Information (Check Scopolamine Patch Placement) 1 ea QS N/A 06/02/17 16:00 07/02/17 15:59 06/02/17 16:00 1 EA Aspirin (Aspirin Chew) 81 mg QAM NG 06/02/17 09:00 07/02/17 08:59 06/02/17 10:21 81 MG Doxycycline Hyclate 100 mg/ Dextrose 110 ml @ 50 mls/hr Q12H IV 06/02/17 13:00 06/09/17 12:59 06/02/17 14:25 50 MLS/HR Lactated Ringer's 1,000 ml @ 75 mls/hr [id number] IV 06/02/17 14:45 07/02/17 14:44 06/02/17 16:02 75 MLS/HR Objective Vital Signs Date Time Temp Pulse Resp B/P (MAP) Pulse Ox O2 Delivery O2 Flow Rate FiO2 06/02/17 16:00 37.4 81 16 102/59 (73) 97 Mechanical Ventilator 70 06/02/17 14:30 80 06/02/17 14:00 71 16 103/61 (75) 96 Mechanical Ventilator 80 06/02/17 12:31 72 16 95/58 (70) 94 Mechanical Ventilator 100 06/02/17 12:16 72 16 89/58 (68) 94 Mechanical Ventilator 100 06/02/17 12:00 80 06/02/17 12:00 Mechanical Ventilator 80 06/02/17 12:00 37.9 65 16 92/59 (70) 94 Mechanical Ventilator 100 06/02/17 10:58 100 06/02/17 10:46 73 16 91/65 (74) 95 Mechanical Ventilator 100 06/02/17 10:31 73 16 96/64 (75) 95 Mechanical Ventilator 100 06/02/17 10:26 72 16 90/61 (71) 96 Mechanical Ventilator 100 06/02/17 10:16 67 12 88/66 (73) 97 Mechanical Ventilator 100 06/02/17 10:00 71 16 106/66 (79) 100 Mechanical Ventilator 100 06/02/17 08:00 37.4 74 16 100/62 (75) 100 Mechanical Ventilator 100 06/02/17 08:00 Mechanical Ventilator 100 06/02/17 08:00 100 06/02/17 08:00 Mechanical Ventilator 100 06/02/17 07:25 100 06/02/17 07:16 68 16 116/77 (90) 100 06/02/17 07:15 73 16 100 06/02/17 07:01 71 16 110/70 (83) 100 Mechanical Ventilator 100 06/02/17 07:00 71 16 100 06/02/17 06:50 100 06/02/17 06:46 72 16 111/71 (84) 100 06/02/17 06:45 72 16 100 06/02/17 06:31 72 16 110/67 (81) 100 06/02/17 06:30 73 16 100 06/02/17 06:16 72 16 116/70 (85) 100 06/02/17 06:15 73 16 100 06/02/17 06:08 73 16 118/70 (86) 100 Mechanical Ventilator 100 06/02/17 06:00 73 16 100 06/02/17 04:55 74 16 96 06/02/17 04:45 36.7 75 16 124/79 (94) 97 06/02/17 04:40 73 16 96 06/02/17 04:30 76 14 129/80 (96) 95 06/02/17 04:25 75 14 96 06/02/17 04:15 75 14 122/74 (90) 96 06/02/17 04:10 75 14 98 06/02/17 04:01 73 16 116/72 (87) 98 06/02/17 04:00 Mechanical Ventilator 100 06/02/17 04:00 100 06/02/17 03:55 74 16 97 06/02/17 03:52 76 16 142/83 (102) 95 06/02/17 03:16 75 14 132/70 (90) 95 06/02/17 03:10 86 14 91 06/02/17 03:01 36.8 75 14 134/78 (96) 97 06/02/17 02:55 76 14 96 06/02/17 02:46 81 16 194/94 (127) 91 06/02/17 02:40 84 25 70 06/02/17 02:31 78 35 152/88 (109) 76 06/02/17 02:25 72 19 84 06/02/17 02:15 81 23 147/80 (102) 06/02/17 01:33 74 91 100 06/02/17 00:55 76 18 93 BiPAP/CPAP 100 06/02/17 00:31 71 90 100 06/01/17 23:47 36.9 76 18 131/74 (93) 91 Nasal Cannula 5.0 06/01/17 19:52 68 18 85 Room Air Physical Exam General Appearance: no apparent distress, + pertinent finding ( chronically ill -appearing) Eyes: normal inspection, EOMI, sclerae normal ENT: + pertinent finding ( endotracheal tube in place) Neck: supple, no adenopathy, trachea midline Respiratory/Chest: chest non-tender, no respiratory distress, + rhonchi Cardiovascular: regular rate, rhythm, no gallop, no murmur Abdomen: normal bowel sounds, non tender, soft, no organomegaly, + distended Extremities: non-tender, + pertinent finding ( moderate left knee swelling) Neurologic/Psychiatric: + pertinent finding ( sedated on a ventilator, no new obvious deficits) Skin: normal color, no rash Lymphatic: no adenopathy Laboratory Results Date/Time Source Procedure Growth Status 06/02/17 02:23 Blood Blood Culture Pending Received 06/02/17 02:02 Blood Blood Culture Pending Received Last 24 Hours Test 06/01/17 16:53 06/01/17 20:14 06/02/17 00:30 06/02/17 01:44 Bedside Glucose 105 mg/dl 122 mg/dl 119 mg/dl Arterial Blood pH 7.25 Arterial Blood Partial Pressure CO2 73 mmHg Arterial Blood Partial Pressure O2 40 mm/Hg Arterial Blood HCO3 31 mmol/L Arterial Blood Oxygen Saturation 69.0 % Arterial Blood Base Excess 2.2 mEq/L Arterial Blood Gas Delivery 15 OXYMASK Junior Test POS Test 06/02/17 01:54 06/02/17 01:56 06/02/17 02:01 06/02/17 04:34 Blood Gas Sample Site L Radial R Radial Bedside Blood Gas pH (LAB) 7.23 7.27 Bedside Blood Gas pCO2 (LAB) 74 mmHg 64 mmHg Bedside Blood Gas pO2 (LAB) 85 mmHg 65 mmHg Bedside Blood Gas HCO3 (LAB) 31 meq/L 29 meq/L Bedside Blood Gas Total CO2 33 mEq/l 31 mEq/l Bedside Blood Gas Base Excess (LAB) 4.0 meq/L 2.0 meq/L Bedside Blood Gas O2 Saturation 94.0 % 88.0 % Junior Test Pass Pass Oxygen Delivery Device BIPAP Ventilator Bedside Oxygen Rate (breaths/min) 19 14 Bedside FiO2 100 % 100 % Blood Gas IPAP 15 Sodium Level 132 mmol/L Potassium Level 3.7 mmol/L Chloride Level 95 mmol/L Carbon Dioxide Level 30 mmol/L Anion Gap 7.0 mmol/L Blood Urea Nitrogen 17 mg/dl Creatinine 1.48 mg/dl Est Creatinine Clear Calc Drug Dose 49.5 ml/min Estimated GFR () 52.9 Estimated GFR (Non- 45.6 BUN/Creatinine Ratio 11.2 Random Glucose 127 mg/dl Calcium Level 8.2 mg/dl Phosphorus Level 3.8 mg/dl Magnesium Level 2.2 mg/dl White Blood Count 11.21 K/uL Red Blood Count 3.91 M/uL Hemoglobin 9.9 g/dL Hematocrit 31.7 % Mean Corpuscular Volume 81.1 fL Mean Corpuscular Hemoglobin 25.3 pg Mean Corpuscular Hemoglobin Concent 31.2 g/dl Platelet Count 237 K/uL Mean Platelet Volume 9.4 fL Neutrophils (%) (Auto) 82.2 % Lymphocytes (%) (Auto) 7.9 % Monocytes (%) (Auto) 5.4 % Eosinophils (%) (Auto) 2.7 % Basophils (%) (Auto) 0.2 % Neutrophils # (Auto) 9.21 K/uL Lymphocytes # (Auto) 0.89 K/uL Monocytes # (Auto) 0.61 K/uL Eosinophils # (Auto) 0.30 K/uL Basophils # (Auto) 0.02 K/uL RDW Standard Deviation 50.7 fL RDW Coefficient of Variation 17.3 % Immature Granulocyte % (Auto) 1.6 % Immature Granulocyte # (Auto) 0.18 K/uL Nucleated RBC Absolute Count (auto) 0.02 K/uL Nucleated Red Blood Cells % 0.2 % Lactic Acid Level 0.6 mmol/L Procalcitonin 0.06 ng/ml Blood Gas Minute Ventilation 6.1 Blood Gas Tidal Volume 500 Blood Gas PEEP 5 Test 06/02/17 06:21 06/02/17 06:25 06/02/17 08:30 06/02/17 08:39 Blood Gas Sample Site R Radial Bedside Blood Gas pH (LAB) 7.36 Bedside Blood Gas pCO2 (LAB) 50 mmHg Bedside Blood Gas pO2 (LAB) 114 mmHg Bedside Blood Gas HCO3 (LAB) 28 meq/L Bedside Blood Gas Total CO2 29 mEq/l Bedside Blood Gas Base Excess (LAB) 2.0 meq/L Bedside Blood Gas O2 Saturation 98.0 % Junior Test Pass Oxygen Delivery Device Ventilator Bedside Oxygen Rate (breaths/min) 16 Blood Gas Minute Ventilation 6.9 Bedside FiO2 100 % Blood Gas Tidal Volume 500 Blood Gas PEEP 10 Troponin I 0.023 ng/ml Influenza Type A (RT-PCR) Neg for Influ A Influenza Type B (RT-PCR) Neg for Influ B Prothrombin Time 22.7 SECONDS Prothromb Time International Ratio 2.1 Test 06/02/17 09:37 06/02/17 12:35 Bedside Glucose 95 mg/dl 100 mg/dl CHEST ONE VIEW PORTABLE HISTORY: Left airway collapse. Verify ET tube placement COMPARISON: Chest 06/02/2017. FINDINGS: Endotracheal tube terminates 1.9 cm in the suad. Nasogastric tube terminates below the diaphragm. The tip is not included on this study. Right PICC terminates at the right atrium. Right basilar density persists and favors partial atelectasis/consolidation of the right middle lobe. Mild pulmonary edema and small bilateral pleural effusions are again noted. Improved aeration within the left lower lobe. IMPRESSION: 1. Improved aeration within the left lower lobe. 2. Satisfactory support line placement. 3. Pulmonary edema and small bilateral pleural effusions persist. 4. Opacification within the right medial lung base remains unchanged. This favors partial collapse/consolidation of the right middle lobe. Electronically signed by: Jorge Veronica M.D. 06/02/2017 8:36 Assessment and Plan Patient with chronically infected left TKA with MRSA, 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 Patient now with left lower lobe pneumonia with respiratory failure. Patient be continued on broad-spectrum antibiotics pending further culture results. Will follow.
[2017-06-02] MEDS: ATORVASTATIN 40 MG TAB PO SCH (21:26)
[2017-06-03] VITALS (14 sets, daily range): BP systolic 108–153; BP diastolic 61–88; PULSE 57–76; TEMP 36.8–37.2; O2SAT 83–100
[2017-06-03] MEDS: CHECK SCOPOLAMINE PATCH PLACEMENT SCH ×3 (00:15→15:41)
[2017-06-03] MEDS: INSULIN ASPART 100 UNITS/ML 3 ML PEN SC SCH ×4 (00:15→17:12)
[2017-06-03] MEDS: FENTANYL CITRATE INJ 50 MCG/1 ML 2 ML VIAL IV SCH ×5 (01:00→08:22)
[2017-06-03] MEDS: DOXYCYCLINE IV 100 MG in DEXTROSE 5% 100ML 100 ML IV SCH (01:29)
[2017-06-03 05:37] LABS: HEMATOCRIT 29.1 % (42-52); MEAN CELL VOLUME 79.1 fL (80-100); MEAN CORPUSCULAR HEMOGLOBIN 23.6 pg (25-34); MEAN CORPUSCULAR HGB CONC 29.9 g/dl (32-36); MEAN PLATELET VOLUME 9.4 fL (7.4-10.4); PLATELET COUNT 212 K/uL (130-400); RED BLOOD COUNT 3.68 M/uL (4.7-6.1); WHITE BLOOD COUNT 7.01 K/uL (4.8-10.8)
[2017-06-03 05:47] LABS: INR 2.2 (0.9-1.1); PROTHROMBIN TIME (PATIENT) 24.6 SECONDS (9.0-12.0)
[2017-06-03 05:56] LABS: BUN/CREATININE RATIO 10.4 (10-20); CALCIUM 8.2 mg/dl (8.5-10.1); CREATININE 1.43 mg/dl (0.60-1.40); MAGNESIUM 2.1 mg/dl (1.8-2.4); PHOSPHORUS 2.7 mg/dl (2.5-4.9); POTASSIUM 3.1 mmol/L (3.5-5.1)
[2017-06-03 06:22] LABS: ISTAT ALLEN TEST Pass; ISTAT ARTERIAL BLOOD GAS HCO3 27 meq/L (19-24); ISTAT ARTERIAL BLOOD GAS PCO2 42 mmHg (35-46); ISTAT ARTERIAL BLOOD GAS PO2 67 mmHg (80-95); ISTAT ARTERIAL BLOOD GAS pH 7.41 (7.35-7.45); ISTAT CARBON DIOXIDE 28 mEq/l (24-31); ISTAT DELIVERY SYSTEM Ventilator; ISTAT FIO2 35 %; ISTAT PEEP 12; ISTAT RATE 16; ISTAT SITE L Radial; VE 6.7; Vt 500
[2017-06-03] MEDS: PIPERACILL/TAZOBAC IV 3.375 GM in DEXTROSE 5% 100ML IV SCH (06:24)
[2017-06-03] MEDS: POTASSIUM CHLR 20 MEQ / WTR 20 MEQ in PREMIXED WATER 100 ML IV SCH ×2 (06:33→08:15)
--- NOTE | 2017-06-03 07:13 | DIAGNOSTIC IMAGING REPORT ---
CHEST ONE VIEW PORTABLE CLINICAL HISTORY: Intubated RESPIRATORY FAILURE COMPARISON STUDY: 06/02/2017 FINDINGS: There is an endotracheal tube 24 mm above the suad. There is a nasogastric tube which passes in the stomach. There is a right-sided PICC catheter which terminates near the atriocaval junction. There are small bilateral pleural effusions. There is improving interstitial pulmonary edema. There are improving right mid and lower lung zone airspace opacities. IMPRESSION: 1. Improving interstitial edema 2. Improving right mid and lower lung zone airspace opacities 3. Persistent small bilateral pleural effusions Electronically signed by: Hitesh Fajardo M.D. 06/03/2017 7:11 AM Dictated Date/Time: 06/03/2017 7:04 AM
[2017-06-03] MEDS ORDERED: VANCOMYCIN INJ 1,000 MG in SODIUM CHLORIDE 0.9% 250ML 250 ML IV ONE (07:30)
[2017-06-03] MEDS: ALBUTEROL HFA 8 GM INHALER INH SCH ×4 (07:33→20:26)
[2017-06-03] MEDS: IPRATROPIUM BROMIDE HFA INHALER INH SCH ×4 (07:33→20:27)
[2017-06-03] MEDS: LACTATED RINGER'S 1000ML 1,000 ML IV SCH (08:13)
[2017-06-03] MEDS: ASPIRIN 81 MG CHEW NG SCH (08:15)
[2017-06-03] MEDS: NYSTATIN CR 15 GM TUBE EXT SCH ×2 (08:15→20:27)
[2017-06-03] MEDS: SOTALOL HCL 80 MG TAB PO SCH (08:16)
[2017-06-03] MEDS: DOCUSATE SODIUM/SENNA 50/8.6MG TAB PO SCH ×2 (08:16→20:26)
[2017-06-03] MEDS: LIDODERM (LIDOCAINE) PATCH 5% TD SCH (08:19)
[2017-06-03] MEDS: INSULIN GLARGINE SOLOSTAR 100 UNITS/ML 3 ML PEN SC SCH ×2 (08:19→20:31)
--- NOTE | 2017-06-03 09:54 | Pharmacy Progress Note ---
Pharmacy Abx Dose Short Note Date of Service Jun 03, 2017. Assessment & Plan Assessment 77 year old male receiving Vancomycin/Zosyn IV for treatment of HCAP/UTI/ chronic MRSA knee infection. ID following. Day #6 IV Zosyn Day #? of IV Vancomycin - pt on Vancomycin for knee infection at [facility] - unsure of start date Plan Vancomycin * Random level of 18.1 mcg/mL is therapeutic and indicates that patient is able to be re-dosed at this time. * My plan will be to continue with 1 g X 1 today and reassess a level in 48 hours. * Goal level to guide re-dosin-20 mcg/mL. * A random level ordered for: 06/05/17 with AM labs. Pharmacy will continue to follow and will adjust dose/frequency as necessary. Thank you.
--- NOTE | 2017-06-03 10:24 | Progress Note ---
Medicine Progress Note Date & Time of Visit: Jun 03, 2017 at 08:45 . Subjective Remains sedated on vent. Oxygenation improved. FIO2 weaned to 35%. No new problems reported. . Objective Last 8 Hrs Date Time Temp Pulse Resp B/P (MAP) Pulse Ox O2 Delivery O2 Flow Rate FiO2 06/03/17 08:00 36.8 63 16 130/76 (94) 99 Mechanical Ventilator 35 06/03/17 08:00 Mechanical Ventilator 35 06/03/17 08:00 35 06/03/17 07:33 35 06/03/17 06:01 71 16 113/71 (85) 99 06/03/17 05:20 60 06/03/17 05:01 76 16 134/82 (99) 99 06/03/17 04:01 59 16 113/64 (75) 99 06/03/17 04:00 37.1 06/03/17 04:00 45 06/03/17 03:01 58 16 108/61 (71) 100 06/03/17 02:45 60 Physical Exam: General- intubated, no apparent distress Eyes- anicteric ENT- oral ETT, oral GT Lungs- scattered rhonchi Heart- RRR Abdomen- quiet, soft, nontender - Cantrell cath draining clear urine Extremities- 2+ pretibial and pedal edema Neuro- sedated, minimally responsive to stimuli; pupils 3 mm, reactive . Laboratory Results: Last 24 Hours Test 06/02/17 12:35 06/02/17 17:54 06/02/17 21:23 06/03/17 00:26 Bedside Glucose 100 mg/dl 100 mg/dl 108 mg/dl 106 mg/dl Test 06/03/17 05:16 06/03/17 05:51 White Blood Count 7.01 K/uL Red Blood Count 3.68 M/uL Hemoglobin 8.7 g/dL Hematocrit 29.1 % Mean Corpuscular Volume 79.1 fL Mean Corpuscular Hemoglobin 23.6 pg Mean Corpuscular Hemoglobin Concent 29.9 g/dl RDW Standard Deviation 49.9 fL RDW Coefficient of Variation 17.4 % Platelet Count 212 K/uL Mean Platelet Volume 9.4 fL Prothrombin Time 24.6 SECONDS Prothromb Time International Ratio 2.2 Sodium Level 135 mmol/L Potassium Level 3.1 mmol/L Chloride Level 99 mmol/L Carbon Dioxide Level 30 mmol/L Anion Gap 6.0 mmol/L Blood Urea Nitrogen 15 mg/dl Creatinine 1.43 mg/dl Est Creatinine Clear Calc Drug Dose 52.1 ml/min Estimated GFR () 55.1 Estimated GFR (Non- 47.6 BUN/Creatinine Ratio 10.4 Random Glucose 121 mg/dl Lactic Acid Level 0.9 mmol/L Calcium Level 8.2 mg/dl Phosphorus Level 2.7 mg/dl Magnesium Level 2.1 mg/dl Random Vancomycin Level 18.1 mcg/ml Blood Gas Sample Site L Radial Bedside Blood Gas pH (LAB) 7.41 Bedside Blood Gas pCO2 (LAB) 42 mmHg Bedside Blood Gas pO2 (LAB) 67 mmHg Bedside Blood Gas HCO3 (LAB) 27 meq/L Bedside Blood Gas Total CO2 28 mEq/l Bedside Blood Gas Base Excess (LAB) 2.0 meq/L Bedside Blood Gas O2 Saturation 93.0 % Junior Test Pass Oxygen Delivery Device Ventilator Bedside Oxygen Rate (breaths/min) 16 Blood Gas Minute Ventilation 6.7 Bedside FiO2 35 % Blood Gas Tidal Volume 500 Blood Gas PEEP 12 Date/Time Source Procedure Growth Status 06/02/17 17:30 Nasal MRSA DNA Surveillance Screen - Final Specimen Negative for MRSA by DNA Probe Complete Assessment & Plan ACUTE RESPIRATORY FAILURE Worsening respiratory failure requiring intubation / mechanical ventilation. ? due to worsening pneumonia, mucus plugging, ? ARDS. Oxygenation / chest x-ray improved. Weaning / vent management per [facility]. PNEUMONIA Presented with cough and SOB. Chest x-ray showed infiltrate left base. Blood cultures obtained. IV vancomycin continued and piperacillin / tazobactam initiated. ALTERED MENTAL STATUS Confused at time of presentation. Probable encephalopathy secondary to pneumonia. CORONARY ARTERY DISEASE Continue aspirin and sotalol. PAROXYSMAL ATRIAL FIB Continue sotalol and warfarin. CHRONIC HYPERCAPNIC RESPIRATORY FAILURE Currently intubated. Resume CPAP after extubation. DM TYPE 2 Lantus / NovoLog per protocol. CHRONIC MRSA INFECTION LEFT KNEE Patient has declined surgical intervention. Continue IV vancomycin. BACTERURIA (present on admission) Urine culture growing Pseudomonas aeruginosa. Has chronic Cantrell catheter. Colonization vs infection? Receiving piperacillin / tazobactam for pneumonia. CHRONIC URINARY RETENTION Continue Cantrell cath; change before discharge. VTE PROPHYLAXIS Warfarin. DISPOSITION Critically ill. Discharge disposition to be determined. ADDENDUM: [facility] team discussed status and options with family. Decision made to extubate. Patient has history of sleep apnea, but refuses CPAP. Antibiotic coverage for pneumonia changed to levofloxacin. Will transfer to Med-Surg floor. . Consultants: IDMisty Current Inpatient Medications: Current Inpatient Medications Medications (Trade) Dose Ordered Sig/Betzy Route Start Time Stop Time Status Last Admin Dose Admin Vancomycin HCl (Consult) 1 ea UD PRN N/A 05/29/17 20:09 06/28/17 20:08 Miscellaneous Information (Consult Glycemic Management Pharmacy) 1 UD N/A 05/29/17 18:37 06/28/17 18:36 Al Hydrox/Mg Hydrox/Simethicone (Maalox Max Susp) 15 ml Q4H PRN PO 05/29/17 16:45 06/28/17 16:44 06/01/17 17:47 15 ML Ondansetron HCl (Zofran Inj) 4 mg Q6H PRN IV 05/29/17 16:45 06/28/17 16:44 06/01/17 15:25 4 MG Atorvastatin Calcium (Lipitor Tab) 40 mg HS PO 05/29/17 21:00 06/28/17 20:59 06/02/17 21:26 40 MG Magnesium Hydroxide (Milk Of Magnesia Susp) 30 ml DAILY PRN PO 05/29/17 17:00 06/28/17 16:59 Nystatin (Mycostatin Crm) 1 appln BID EXT 05/29/17 21:00 06/28/17 20:59 06/03/17 08:15 1 APPLN Senna/Docusate Sodium (Senokot S Tab) 1 tab BID PO 05/29/17 21:00 06/28/17 20:59 06/03/17 08:16 1 TAB Sotalol HCl (Betapace Tab) 80 mg DAILY PO 05/30/17 09:00 06/29/17 08:59 06/03/17 08:16 80 MG Warfarin Sodium (Coumadin Tab) 2.5 mg DAILY@1600 PO 05/29/17 21:00 06/28/17 20:59 06/02/17 16:02 2.5 MG Piperacillin Sod/ Tazobactam Sod (Consult) 1 ea UD PRN N/A 05/29/17 20:15 06/28/17 20:14 Piperacillin Sod/ Tazobactam Sod 3.375 gm/Dextrose 115 ml @ 28.75 mls/ hr Q8H IV 05/29/17 22:00 06/05/17 21:59 06/03/17 06:24 28.75 MLS/HR Heparin Sodium (Porcine) (Heparin 10 Unit/ ml 5 ml Flush) 5 ml PRN PRN FLUSH 05/30/17 01:00 06/29/17 00:59 06/01/17 13:11 5 ML Pregabalin (Lyrica Cap) 100 mg BID PO 05/31/17 09:00 06/30/17 08:59 Future Hold 06/01/17 20:37 100 MG Tramadol HCl (Ultram Tab) 50 mg Q6H PRN PO 05/30/17 15:45 06/29/17 15:44 06/01/17 20:10 50 MG Guaifenesin (Robitussin Sugar Free Syrup) 100 mg Q6H PRN PO 05/30/17 21:30 06/29/17 21:29 06/01/17 20:27 100 MG Insulin Glargine (Lantus Solostar Pen) SEE PROTOCOL TEXT BID SC 05/31/17 21:00 06/30/17 20:59 06/03/17 08:19 10 UNITS Lidocaine (Lidoderm Patch 5%) 1 patch QAM TD 06/02/17 09:00 07/02/17 08:59 06/03/17 08:19 1 PATCH Miscellaneous (Remove Lidoderm Patch) 1 ea DAILY@21 N/A 06/02/17 08:59 07/02/17 08:58 Fentanyl Citrate (Fentanyl Inj) 50 mcg Q2H IV 06/02/17 03:00 06/16/17 02:59 06/02/17 10:20 50 MCG Midazolam HCl 250 ml @ 0 mls/hr Q0M PRN IV 06/02/17 02:44 07/02/17 02:43 06/02/17 03:00 2 MLS/HR Pantoprazole Sodium 40 mg/ Syringe 10 ml @ 5 mls/min DAILY@1100 IV 06/02/17 03:00 07/02/17 02:59 06/02/17 10:25 5 MLS/MIN Ioversol (Optiray 320) 100 ml UD PRN IV 06/02/17 03:15 06/06/17 03:14 Ipratropium [place] (Atrovent Hfa Inhaler) 4 puffs QIDR INH 06/02/17 08:00 07/02/17 07:59 06/03/17 07:33 4 PUFFS Albuterol (Ventolin Hfa Inhaler) 4 puffs QIDR INH 06/02/17 08:00 07/02/17 07:59 06/03/17 07:33 4 PUFFS Insulin Aspart (novoLOG ASPART) SLIDING SCALE Q6 SC 06/02/17 06:30 07/02/17 06:29 Scopolamine (Transderm-Scop Patch) 1.5 mg Q72H TD 06/02/17 09:00 07/02/17 08:59 06/02/17 10:21 1.5 MG Miscellaneous (Remove Transderm-Scop Patch) 1 ea Q72H N/A 06/05/17 08:59 07/05/17 08:58 Miscellaneous Information (Check Scopolamine Patch Placement) 1 ea QS N/A 06/02/17 16:00 07/02/17 15:59 06/03/17 08:14 1 EA Aspirin (Aspirin Chew) 81 mg QAM NG 06/02/17 09:00 07/02/17 08:59 06/03/17 08:15 81 MG Doxycycline Hyclate 100 mg/ Dextrose 110 ml @ 50 mls/hr Q12H IV 06/02/17 13:00 06/09/17 12:59 06/03/17 01:29 50 MLS/HR Lactated Ringer's 1,000 ml @ 75 mls/hr [id number] IV 06/02/17 14:45 07/02/17 14:44 06/03/17 08:13 75 MLS/HR Potassium Chloride 20 meq/ Prmx 100 ml @ 50 mls/hr Q2H IV 06/03/17 06:30 06/03/17 10:29 06/03/17 08:15 50 MLS/HR
[2017-06-03] MEDS ORDERED: AMLODIPINE BESYLATE 5 MG TAB PO ONE (11:15)
[2017-06-03] MEDS: PANTOprazole INJ 40 MG in SYRINGE 0 ML IV SCH (11:22)
[2017-06-03] MEDS ORDERED: FENTANYL CITRATE INJ 50 MCG/1 ML 2 ML VIAL IV PRN (11:30)
[2017-06-03] MEDS: D5W AND 1/2NSS + 20MEQ KCL 1000 ML IV SCH (13:14)
[2017-06-03] MEDS: LEVOFLOXACIN 750MG / D5W IV SCH (13:14)
[2017-06-03] MEDS: MoRPHine SULFATE 2 MG/ML CARP IV PRN ×5 (15:15→23:16)
[2017-06-03] MEDS: WARFARIN SOD 2.5 MG TAB PO SCH (15:41)
--- NOTE | 2017-06-03 16:44 | Palliative Care Consultation ---
Consultation Date of Consultation: Jun 03, 2017. Requesting Physician: Dr. Morejon Attending Physician: Dr. Morejon, Dr. 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 Being seen by palliative care to establish goals of care. Patient was admitted to medical unit and receiving IV abx when he developed altered mental status and respiratory failure. He was placed on bipap, sent to ICU, and eventually intubated two nights ago. Patient has likely worsening pneumonia and is now in ARDS. Yesterday, when patient's nephew/POA, Dagoberto Liner, spoke with the dance coach about plan and goals of care, Dagoberto indicated that patient is tired of being so ill and in/out of hospital. Repairer Cylinder Heads offered options for care including bronchoscopy to see if any mucous plugging could be cleared, but Dagoberto wanted to hold off for now in accordance with what his uncle's wishes would be. Dagoberto asked for some time with his family and his about plan going forward. Today, I spoke with Dagoberto who stated that his family is all coming in to see the patient and they would like to move to comfort measures only. He stated that once patient was extubated, there would be no plan for intubation and they are ready to allow nature to take its course and for patient to be made comfortable. At the time that I evaluated patient this morning, he was still on ventilator. This afternoon he is now extubated, has confusion but is somewhat awake and asking for a drink. He is unable to participate in any meaningful goals of care conversation. Family is at bedside and supportive. 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 (13) Warfarin anticoagulation Status: Chronic Surgical Problems: (1) H/O inguinal hernia repair Status: Chronic (2) H/O resection of large bowel Permanent Comment: colostomy Status: Chronic (3) H/O sinus surgery Status: Chronic (4) Status post hip hemiarthroplasty Permanent Comment: right Status: Chronic (5) Status post removal right hip prosthesis Status: Chronic (6) Status post total knee replacement Permanent Comment: BL, with revision of left Status: Chronic Social History Smoking Status: Former Smoker History of Alcohol Use: No Drug Use: none Marital Status: single Housing Status: senior living Occupation Status: retired Review of Systems unable to obtain ROS due to mental status Allergies Coded Allergies: Latex (Verified Allergy, Mild, UNSURE - FROM [facility], 05/29/17) Macrolides and Ketolides (Verified Allergy, Unknown, [facility], 12/04/16) Azithromycin (Verified Adverse Reaction, Mild, nausea, 05/29/17) with nausea and diarrhea Medications Current Inpatient Medications Medications (Trade) Dose Ordered Sig/Betzy Route Start Time Stop Time Status Last Admin Dose Admin Vancomycin HCl (Consult) 1 ea UD PRN N/A 05/29/17 20:09 06/28/17 20:08 Miscellaneous Information (Consult Glycemic Management Pharmacy) 1 ea UD N/A 05/29/17 18:37 06/28/17 18:36 Al Hydrox/Mg Hydrox/Simethicone (Maalox Max Susp) 15 ml Q4H PRN PO 05/29/17 16:45 06/28/17 16:44 06/01/17 17:47 15 ML Ondansetron HCl (Zofran Inj) 4 mg Q6H PRN IV 05/29/17 16:45 06/28/17 16:44 06/01/17 15:25 4 MG Atorvastatin Calcium (Lipitor Tab) 40 mg HS PO 05/29/17 21:00 06/28/17 20:59 06/02/17 21:26 40 MG Magnesium Hydroxide (Milk Of Magnesia Susp) 30 ml DAILY PRN PO 05/29/17 17:00 06/28/17 16:59 Nystatin (Mycostatin Crm) 1 appln BID EXT 05/29/17 21:00 06/28/17 20:59 06/03/17 08:15 1 APPLN Senna/Docusate Sodium (Senokot S Tab) 1 tab BID PO 05/29/17 21:00 06/28/17 20:59 06/03/17 08:16 1 TAB Sotalol HCl (Betapace Tab) 80 mg DAILY PO 05/30/17 09:00 06/29/17 08:59 06/03/17 08:16 80 MG Warfarin Sodium (Coumadin Tab) 2.5 mg DAILY@1600 PO 05/29/17 21:00 06/28/17 20:59 06/03/17 15:41 2.5 MG Heparin Sodium (Porcine) (Heparin 10 Unit/ ml 5 ml Flush) 5 ml PRN PRN FLUSH 05/30/17 01:00 06/29/17 00:59 06/01/17 13:11 5 ML Pregabalin (Lyrica Cap) 100 mg BID PO 05/31/17 09:00 06/30/17 08:59 Future Hold 06/01/17 20:37 100 MG Guaifenesin (Robitussin Sugar Free Syrup) 100 mg Q6H PRN PO 05/30/17 21:30 06/29/17 21:29 06/01/17 20:27 100 MG Insulin Glargine (Lantus Solostar Pen) SEE PROTOCOL TEXT BID SC 05/31/17 21:00 06/30/17 20:59 06/03/17 08:19 10 UNITS Lidocaine (Lidoderm Patch 5%) 1 patch QAM TD 06/02/17 09:00 07/02/17 08:59 06/03/17 08:19 1 PATCH Miscellaneous (Remove Lidoderm Patch) 1 ea DAILY@21 N/A 06/02/17 08:59 07/02/17 08:58 Midazolam HCl 250 ml @ 0 mls/hr Q0M PRN IV 06/02/17 02:44 07/02/17 02:43 06/02/17 03:00 2 MLS/HR Pantoprazole Sodium 40 mg/ Syringe 10 ml @ 5 mls/min DAILY@1100 IV 06/02/17 03:00 07/02/17 02:59 06/03/17 11:22 5 MLS/MIN Ioversol (Optiray 320) 100 ml UD PRN IV 06/02/17 03:15 06/06/17 03:14 Ipratropium [place] (Atrovent Hfa Inhaler) 4 puffs QIDR INH 06/02/17 08:00 07/02/17 07:59 06/03/17 14:27 4 PUFFS Albuterol (Ventolin Hfa Inhaler) 4 puffs QIDR INH 06/02/17 08:00 07/02/17 07:59 06/03/17 14:27 4 PUFFS Insulin Aspart (novoLOG ASPART) SLIDING SCALE Q6 SC 06/02/17 06:30 07/02/17 06:29 Scopolamine (Transderm-Scop Patch) 1.5 mg Q72H TD 06/02/17 09:00 07/02/17 08:59 06/02/17 10:21 1.5 MG Miscellaneous (Remove Transderm-Scop Patch) 1 ea Q72H N/A 06/05/17 08:59 07/05/17 08:58 Miscellaneous Information (Check Scopolamine Patch Placement) 1 ea QS N/A 06/02/17 16:00 07/02/17 15:59 06/03/17 15:41 1 EA Aspirin (Aspirin Chew) 81 mg QAM NG 06/02/17 09:00 07/02/17 08:59 06/03/17 08:15 81 MG Amlodipine Besylate (Norvasc Tab) 5 mg DAILY PO 06/04/17 09:00 07/04/17 08:59 Potassium Chloride/Dextrose/ Sod Cl 1,000 ml @ 75 mls/hr [id number] IV 06/03/17 11:30 07/03/17 11:29 06/03/17 13:14 75 MLS/HR Levofloxacin 750 mg/Prmx 150 ml @ 100 mls/hr Q24H IV 06/03/17 12:00 06/13/17 11:59 06/03/17 13:14 100 MLS/HR Morphine Sulfate (MoRPHine SULFATE INJ) 2 mg Q30M PRN IV 06/03/17 15:15 06/17/17 15:14 06/03/17 15:15 2 MG Physical Exam Date Time Temp Pulse Resp B/P (MAP) Pulse Ox O2 Delivery O2 Flow Rate FiO2 06/03/17 14:27 35 06/03/17 14:00 57 16 133/77 (95) 93 Mechanical Ventilator 35 06/03/17 12:00 Mechanical Ventilator 35 06/03/17 12:00 37.0 66 16 153/88 (109) 93 Mechanical Ventilator 35 06/03/17 12:00 35 06/03/17 11:54 35 06/03/17 08:00 36.8 63 16 130/76 (94) 99 Mechanical Ventilator 35 06/03/17 08:00 Mechanical Ventilator 35 06/03/17 08:00 35 06/03/17 07:33 35 06/03/17 06:01 71 16 113/71 (85) 99 06/03/17 05:20 60 06/03/17 05:01 76 16 134/82 (99) 99 06/03/17 04:01 59 16 113/64 (75) 99 06/03/17 04:00 37.1 06/03/17 04:00 45 06/03/17 03:01 58 16 108/61 (71) 100 06/03/17 02:45 60 06/03/17 02:01 59 16 111/63 (73) 100 06/03/17 01:01 62 16 109/64 (73) 100 06/03/17 00:01 66 16 121/70 (82) 98 06/03/17 00:00 60 06/03/17 00:00 37.2 06/02/17 23:37 60 06/02/17 23:31 66 16 130/76 (90) 100 06/02/17 23:01 66 16 108/58 (61) 97 06/02/17 22:01 72 16 128/76 (90) 99 06/02/17 21:01 67 16 99/56 (70) 98 06/02/17 20:46 60 06/02/17 20:31 68 16 109/62 (73) 99 06/02/17 20:01 65 16 122/65 (84) 100 06/02/17 20:00 60 06/02/17 20:00 36.9 06/02/17 18:00 68 16 105/60 (75) 97 Mechanical Ventilator 70 06/02/17 17:35 70 General Appearance: no apparent distress Neck: supple, no JVD Respiratory: no respiratory distress, no accessory muscle use, + rhonchi ( coarse throughout) Cardiovascular: regular rate, rhythm (with hx paroxysmal afib) Abdomen: normal bowel sounds, soft Neurologic/Psychiatric: + disoriented Skin: normal color Laboratory Results Last 24 Hours Test 06/02/17 17:54 06/02/17 21:23 06/03/17 00:26 06/03/17 05:16 Bedside Glucose 100 mg/dl 108 mg/dl 106 mg/dl White Blood Count 7.01 K/uL Red Blood Count 3.68 M/uL Hemoglobin 8.7 g/dL Hematocrit 29.1 % Mean Corpuscular Volume 79.1 fL Mean Corpuscular Hemoglobin 23.6 pg Mean Corpuscular Hemoglobin Concent 29.9 g/dl RDW Standard Deviation 49.9 fL RDW Coefficient of Variation 17.4 % Platelet Count 212 K/uL Mean Platelet Volume 9.4 fL Prothrombin Time 24.6 SECONDS Prothromb Time International Ratio 2.2 Sodium Level 135 mmol/L Potassium Level 3.1 mmol/L Chloride Level 99 mmol/L Carbon Dioxide Level 30 mmol/L Anion Gap 6.0 mmol/L Blood Urea Nitrogen 15 mg/dl Creatinine 1.43 mg/dl Est Creatinine Clear Calc Drug Dose 52.1 ml/min Estimated GFR () 55.1 Estimated GFR (Non- 47.6 BUN/Creatinine Ratio 10.4 Random Glucose 121 mg/dl Lactic Acid Level 0.9 mmol/L Calcium Level 8.2 mg/dl Phosphorus Level 2.7 mg/dl Magnesium Level 2.1 mg/dl Random Vancomycin Level 18.1 mcg/ml Test 06/03/17 05:51 06/03/17 11:28 Blood Gas Sample Site L Radial Bedside Blood Gas pH (LAB) 7.41 Bedside Blood Gas pCO2 (LAB) 42 mmHg Bedside Blood Gas pO2 (LAB) 67 mmHg Bedside Blood Gas HCO3 (LAB) 27 meq/L Bedside Blood Gas Total CO2 28 mEq/l Bedside Blood Gas Base Excess (LAB) 2.0 meq/L Bedside Blood Gas O2 Saturation 93.0 % Junior Test Pass Oxygen Delivery Device Ventilator Bedside Oxygen Rate (breaths/min) 16 Blood Gas Minute Ventilation 6.7 Bedside FiO2 35 % Blood Gas Tidal Volume 500 Blood Gas PEEP 12 Bedside Glucose 101 mg/dl Assessment & Plan Problem list: Acute respiratory failure Worsening pneumonia, now with in ARDS Altered mental status 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 Morejon. -Patient is level 5/DNR already. -Goal is for comfort and terminal extubation today. Patient now extubated and somewhat awake. -According to Dagoberto and what patient's wishes would be, there will be no escalation of care at this point and plan is for comfort measures only. -Difficult to know at this time what kind of recovery or course patient will have at this point. Will depend on his mental status and ability to take in nutrition or not. -Patient remains on IVF and IV abx at this time, but if no improvement or decline in next 24-48 hours would be reasonable to consider discontinuing. -Patient has comfort medications ordered: PRN IV morphine, scopolamine patch. -Further goals and plan of care to be determined depending on patient's hospital course/potential recovery. Thank you kindly for this consult. Please contact me with any palliative care needs.
[2017-06-03] MEDS: ATORVASTATIN 40 MG TAB PO SCH (20:26)
[2017-06-03] MEDS ORDERED: LEVALBUTEROL 0.63MG/3 ML NEB INH PRN (21:15)
[2017-06-04] VITALS (10 sets, daily range): BP systolic 138–158; BP diastolic 74–84; PULSE 71–89; TEMP 36.8–37.1; O2SAT 80–94
[2017-06-04] MEDS: D5W AND 1/2NSS + 20MEQ KCL 1000 ML IV SCH ×2 (00:51→15:16)
[2017-06-04] MEDS: MoRPHine SULFATE 2 MG/ML CARP IV PRN ×9 (01:31→23:17)
[2017-06-04] MEDS: INSULIN ASPART 100 UNITS/ML 3 ML PEN SC SCH ×2 (06:00)
[2017-06-04 06:39] LABS: HEMATOCRIT 31.4 % (42-52); MEAN CELL VOLUME 82.4 fL (80-100); MEAN CORPUSCULAR HEMOGLOBIN 24.7 pg (25-34); MEAN CORPUSCULAR HGB CONC 29.9 g/dl (32-36); MEAN PLATELET VOLUME 9.3 fL (7.4-10.4); PLATELET COUNT 227 K/uL (130-400); RED BLOOD COUNT 3.81 M/uL (4.7-6.1); WHITE BLOOD COUNT 11.45 K/uL (4.8-10.8)
[2017-06-04 06:45] LABS: INR 2.4 (0.9-1.1)
[2017-06-04] MEDS ORDERED: NURSING VERBAL MED ORDER ONE (06:45)
[2017-06-04] MEDS: IPRATROPIUM BROMIDE NEB SOLN 0.02% 2.5 ML VIAL INH SCH ×4 (07:05→19:29)
[2017-06-04] MEDS: LEVALBUTEROL 1.25MG/0.5ML NEB INH SCH ×4 (07:06→19:29)
[2017-06-04 07:18] LABS: BUN/CREATININE RATIO 9.9 (10-20); CALCIUM 8.5 mg/dl (8.5-10.1); CREATININE 1.16 mg/dl (0.60-1.40); POTASSIUM 3.7 mmol/L (3.5-5.1)
[2017-06-04] MEDS ORDERED: AMLODIPINE BESYLATE 5 MG TAB PO SCH (09:00)
[2017-06-04] MEDS ORDERED: PANTOprazole SOD 40 MG TAB PO SCH (09:00)
[2017-06-04] MEDS: NYSTATIN CR 15 GM TUBE EXT SCH (09:00)
[2017-06-04] MEDS: ASPIRIN 81 MG CHEW NG SCH (10:21)
[2017-06-04] MEDS: SOTALOL HCL 80 MG TAB PO SCH (10:22)
[2017-06-04] MEDS: PREGABALIN 100 MG CAP PO SCH (10:23)
[2017-06-04] MEDS: DOCUSATE SODIUM/SENNA 50/8.6MG TAB PO SCH (10:25)
[2017-06-04] MEDS: LIDODERM (LIDOCAINE) PATCH 5% TD SCH (10:27)
[2017-06-04] MEDS: INSULIN GLARGINE SOLOSTAR 100 UNITS/ML 3 ML PEN SC SCH (10:27)
[2017-06-04] MEDS: GUAIFENESIN SUGAR FREE 100 MG/5 ML UDC PO PRN (10:56)
--- NOTE | 2017-06-04 11:33 | Critical Care Progress Note ---
Critical Care Progress Note Date of Service Jun 03, 2017. ICU Day ICU Day Number: [address] Morejon Subjective Patient intubated and sedated Objective General -sedated Eyes - PERRL, No icterus, gaze conjugate ENT - Mucosa moist, no lesions or candidiasis, multiple missing teeth Neck - Supple, trachea midline, no masses or lymphadenopathy, no JVD or bruits Lungs - No paradoxical chest wall movement, severely diminished breath sounds R > L with diffuse bilateral rhonchi, Coarse bilaterally. no wheezes or rales, Heart - Reg rate and rhythm, No murmur, rubs, clicks, or gallops appreciated Abdomen -BS present, no bruits noted, tympanic to percussion, soft, nontender, distended, no organomegaly Extremities - Edema Noted, pedal pulses intact Neuro -localizes to pain Strength: Unable to access CN:PERRL, no facial asymmetry, uvula/tongue midline Current SOFA Score SOFA Score Response (Comments) Value SaO2 / FIO2 142 - 220 2 Platelets (x10) > 150 0 Bilirubin (mg/dL) < 1.2 0 Loraine Coma Score 13 - 14 1 Level of Hypotension No Hypotension 0 Creatinine (mg/dL) 1.2 - 1.9 1 Total 4 Assessment & Plan PLAN: Resp: * Acute respiratory distress syndrome * Infiltrate on chest x-ray * Patient was initially started on broad-spectrum antibiotics for a presumptive pneumonia. We did not obtain a sputum specimen secondary to no escalation of care however we are able to downgraded him to 10 day treatment course of Levaquin. The patient has been on vancomycin chronically, and a urine culture is positive for pseudomonas. Levaquin will cover atypicals and should cover other respiratory pathogens. Neuro: * In discussion with family we will proceed with a terminal extubation we have held all sedation CV: * Known History of HTN & CAD * SBP One teens * Monitor on telemetry * Continue ASA, Statin. Norvasc, Sotalol as tolerated * Check Troponin with AM Labs * Hemodynamically stable Fluids/Renal: * Creatinine stable ID: * ID Following * Appreciate Input * D escalated to vancomycin and Levaquin GI/Nutrition: * GI Prophylaxis in place Heme: * H&H 9.9/31.7, Stable * Plts 237 * Coags: 21.4/1.9 Endocrine: * Accu-Checks per protocol, started insulin infusion for 2 blood sugars greater than 180 * Will cut daily Lantus by 1/2 while NPO. Monitor Glucose per protocol We had an extensive discussion with the patient's caregivers. They're in agreement that the patient would not want heroic nor artificial life sustaining measures. We waited for additional family to come from [facility]. All were in agreement the patient would not want to remain intubated and feel his wishes would be to be extubated and will be acceptable of the outcome whether he should experience worsening respiratory failure or have improved to a point that he may recover from this pneumonia. Patient was successfully extubated. He did have some waxing and waning mental status however he did appear to appropriately respond to questions. When asked if he would want additional intervention, or breathing tube should his breathing get worse he shook his head no. Patient is a DO NOT RESUSCITATE DO NOT INTUBATE and stable for downgraded out of the ICU at this time I have personally spent 40 minutes of critical care time in the direct management of this patient. This is a life/limb threatening event. This includes time spent evaluating patient, direct bedside care, chart review, placing orders, interpretation of diagnostic studies, discussion with consultants, patient, and family members, as well as other required patient management activities. This time is exclusive of all separately billable procedures, and teaching time and separate from and in addition to any other critical care service time. Consults & Procedures Consultants: Infectious disease Procedures: Intubation on 06/02/2017 Data Medications: Current Inpatient Medications Medications (Trade) Dose Ordered Sig/Betzy Route Start Time Stop Time Status Last Admin Dose Admin Vancomycin HCl (Consult) 1 ea UD PRN N/A 05/29/17 20:09 06/28/17 20:08 Miscellaneous Information (Consult Glycemic Management Pharmacy) 1 ea UD N/A 05/29/17 18:37 06/28/17 18:36 Al Hydrox/Mg Hydrox/Simethicone (Maalox Max Susp) 15 ml Q4H PRN PO 05/29/17 16:45 06/28/17 16:44 06/01/17 17:47 15 ML Ondansetron HCl (Zofran Inj) 4 mg Q6H PRN IV 05/29/17 16:45 06/28/17 16:44 06/01/17 15:25 4 MG Atorvastatin Calcium (Lipitor Tab) 40 mg HS PO 05/29/17 21:00 06/28/17 20:59 06/03/17 20:26 40 MG Magnesium Hydroxide (Milk Of Magnesia Susp) 30 ml DAILY PRN PO 05/29/17 17:00 06/28/17 16:59 Nystatin (Mycostatin Crm) 1 appln BID EXT 05/29/17 21:00 06/28/17 20:59 06/03/17 20:27 1 APPLN Senna/Docusate Sodium (Senokot S Tab) 1 tab BID PO 05/29/17 21:00 06/28/17 20:59 06/04/17 10:25 1 TAB Sotalol HCl (Betapace Tab) 80 mg DAILY PO 05/30/17 09:00 06/29/17 08:59 06/04/17 10:22 80 MG Warfarin Sodium (Coumadin Tab) 2.5 mg DAILY@1600 PO 05/29/17 21:00 06/28/17 20:59 06/03/17 15:41 2.5 MG Heparin Sodium (Porcine) (Heparin 10 Unit/ ml 5 ml Flush) 5 ml PRN PRN FLUSH 05/30/17 01:00 06/29/17 00:59 06/01/17 13:11 5 ML Pregabalin (Lyrica Cap) 100 mg BID PO 05/31/17 09:00 06/30/17 08:59 Future hold 06/04/17 10:23 100 MG Guaifenesin (Robitussin Sugar Free Syrup) 100 mg Q6H PRN PO 05/30/17 21:30 06/29/17 21:29 06/04/17 10:56 100 MG Insulin Glargine (Lantus Solostar Pen) SEE PROTOCOL TEXT BID SC 05/31/17 21:00 06/30/17 20:59 06/04/17 10:27 10 UNITS Lidocaine (Lidoderm Patch 5%) 1 patch QAM TD 06/02/17 09:00 07/02/17 08:59 06/04/17 10:27 1 PATCH Miscellaneous (Remove Lidoderm Patch) 1 ea DAILY@21 N/A 06/02/17 08:59 07/02/17 08:58 06/03/17 20:26 1 EA Ioversol (Optiray 320) 100 ml UD PRN IV 06/02/17 03:15 06/06/17 03:14 Insulin Aspart (novoLOG ASPART) SLIDING SCALE Q6 SC 06/02/17 06:30 07/02/17 06:29 Aspirin (Aspirin Chew) 81 mg QAM NG 06/02/17 09:00 07/02/17 08:59 06/04/17 10:21 81 MG Amlodipine Besylate (Norvasc Tab) 5 mg DAILY PO 06/04/17 09:00 07/04/17 08:59 06/04/17 10:23 5 MG Potassium Chloride/Dextrose/ Sod Cl 1,000 ml @ 75 mls/hr [id number] IV 06/03/17 11:30 07/03/17 11:29 06/04/17 00:51 75 MLS/HR Levofloxacin 750 mg/Prmx 150 ml @ 100 mls/hr Q24H IV 06/03/17 12:00 06/13/17 11:59 06/03/17 13:14 100 MLS/HR Pantoprazole Sodium (Protonix Tab) 40 mg QAM PO 06/04/17 09:00 07/04/17 08:59 06/04/17 10:24 40 MG Ipratropium [place] (Atrovent 0.02% 0.5MG/2.5ML Neb) 0.5 mg QIDR INH 06/04/17 08:00 07/04/17 07:59 06/04/17 07:05 0.5 MG Levalbuterol (Xopenex 1.25MG/ 0.5ML Neb) 1.25 mg QIDR INH 06/04/17 08:00 07/04/17 07:59 06/04/17 07:06 1.25 MG Levalbuterol (Xopenex 0.63 Mg/ 3 Ml Neb) 0.63 mg Q2H PRN INH 06/03/17 21:15 07/03/17 21:14 Morphine Sulfate (MoRPHine SULFATE INJ) 2 mg Q3H PRN IV 06/04/17 07:00 06/18/17 06:59 06/04/17 10:28 2 MG Vital Signs: Date Time Temp Pulse Resp B/P (MAP) Pulse Ox O2 Delivery O2 Flow Rate FiO2 06/04/17 07:58 36.8 89 24 149/80 (103) 94 Nasal Cannula 5.0 06/04/17 07:05 71 20 94 Nasal Cannula 5.5 06/04/17 01:11 36.8 71 22 158/84 (108) 87 Nasal Cannula 4.0 06/04/17 00:00 Nasal Cannula 5.0 06/03/17 19:15 Nasal Cannula 5.0 06/03/17 19:15 36.8 73 18 122/67 (85) 83 Nasal Cannula 5.0 06/03/17 16:00 68 16 131/74 (93) 85 Nasal Cannula 5.0 06/03/17 16:00 Nasal Cannula 5.0 06/03/17 14:27 35 06/03/17 14:00 57 16 133/77 (95) 93 Mechanical Ventilator 35 06/03/17 12:00 Mechanical Ventilator 35 06/03/17 12:00 37.0 66 16 153/88 (109) 93 Mechanical Ventilator 35 06/03/17 12:00 35 06/03/17 11:54 35 Laboratory Results: Last 24 Hours Test 06/03/17 11:28 06/03/17 16:58 06/03/17 20:16 06/04/17 06:19 Bedside Glucose 101 mg/dl 125 mg/dl 132 mg/dl White Blood Count 11.45 K/uL Red Blood Count 3.81 M/uL Hemoglobin 9.4 g/dL Hematocrit 31.4 % Mean Corpuscular Volume 82.4 fL Mean Corpuscular Hemoglobin 24.7 pg Mean Corpuscular Hemoglobin Concent 29.9 g/dl RDW Standard Deviation 53.6 fL RDW Coefficient of Variation 17.9 % Platelet Count 227 K/uL Mean Platelet Volume 9.3 fL Prothrombin Time 27.0 SECONDS Prothromb Time International Ratio 2.4 Sodium Level 135 mmol/L Potassium Level 3.7 mmol/L Chloride Level 99 mmol/L Carbon Dioxide Level 28 mmol/L Anion Gap 8.0 mmol/L Blood Urea Nitrogen 12 mg/dl Creatinine 1.16 mg/dl Est Creatinine Clear Calc Drug Dose 63.6 ml/min Estimated GFR () 71.0 Estimated GFR (Non- 61.3 BUN/Creatinine Ratio 9.9 Random Glucose 127 mg/dl Calcium Level 8.5 mg/dl Test 06/04/17 07:43 Bedside Glucose 122 mg/dl
[2017-06-04] MEDS: LEVOFLOXACIN 750MG / D5W IV SCH (12:51)
[2017-06-04] MEDS ORDERED: INSULIN ASPART 100 UNITS/ML 3 ML PEN SC SCH (16:30)
[2017-06-04] MEDS: WARFARIN SOD 2.5 MG TAB PO SCH (16:55)
[2017-06-04] MEDS ORDERED: OLANZAPINE ZYDIS 5 MG ORALLY DIS. TAB PO PRN (20:00)
[2017-06-04] MEDS ORDERED: SCOPOLAMINE 1.5 MG TDSY TD SCH (20:00)
[2017-06-04] MEDS ORDERED: MoRPHine SULF/NSS 250MG/250ML 250 ML IV PRN (20:00)
[2017-06-04] MEDS ORDERED: FUROSEMIDE INJ 40 MG in SYRINGE 0 ML IV ONE (20:00)
--- NOTE | 2017-06-04 20:17 | Progress Note ---
Medicine Progress Note Date & Time of Visit: Jun 04, 2017 at 20:09 . Subjective Patient evaluated this afternoon and reassessed this evening. Experiencing chest congestion and low oxygen saturations. CPAP/BiPAP not being utilized because of intolerance/patient preference. Intermittent pain in chest, back, abdomen requiring multiple doses of morphine for relief. Mental status waxing and waning. Patient indicated to his family that he wishes only to have comfort measures at this time. . Objective Last 8 Hrs Date Time Temp Pulse Resp B/P (MAP) Pulse Ox O2 Delivery O2 Flow Rate FiO2 06/04/17 17:07 80 Nasal Cannula 15.0 35 Mask 06/04/17 15:17 37.1 77 22 143/78 (99) 80 Mask 15.0 06/04/17 14:57 83 20 Mask 15.0 06/04/17 13:32 81 22 138/74 (95) 85 Mask 15.0 Physical Exam: General- appears to be uncomfortable Lungs- scattered rhonchi Heart- RRR Abdomen- quiet, soft, nontender - Cantrell cath draining clear urine Extremities- 2+ pretibial and pedal edema Neuro- sedated, minimally responsive . Laboratory Results: Last 24 Hours Test 06/03/17 20:16 06/04/17 06:19 06/04/17 07:43 06/04/17 11:18 Bedside Glucose 132 mg/dl 122 mg/dl 143 mg/dl White Blood Count 11.45 K/uL Red Blood Count 3.81 M/uL Hemoglobin 9.4 g/dL Hematocrit 31.4 % Mean Corpuscular Volume 82.4 fL Mean Corpuscular Hemoglobin 24.7 pg Mean Corpuscular Hemoglobin Concent 29.9 g/dl RDW Standard Deviation 53.6 fL RDW Coefficient of Variation 17.9 % Platelet Count 227 K/uL Mean Platelet Volume 9.3 fL Prothrombin Time 27.0 SECONDS Prothromb Time International Ratio 2.4 Sodium Level 135 mmol/L Potassium Level 3.7 mmol/L Chloride Level 99 mmol/L Carbon Dioxide Level 28 mmol/L Anion Gap 8.0 mmol/L Blood Urea Nitrogen 12 mg/dl Creatinine 1.16 mg/dl Est Creatinine Clear Calc Drug Dose 63.6 ml/min Estimated GFR () 71.0 Estimated GFR (Non- 61.3 BUN/Creatinine Ratio 9.9 Random Glucose 127 mg/dl Calcium Level 8.5 mg/dl Test 06/04/17 16:43 Bedside Glucose 143 mg/dl Assessment & Plan Multiple acute and chronic problems. Intubated for worsening respiratory status. Extubated 06/03 after extensive discussions with family by [facility]. Worsening dyspnea, hypoxia, and discomfort today. Patient has been chronically ill with accumulating problems and declining quality of life. He has indicated to his family that he wishes comfort measures only at this time. Discussed with Darius (cousin, POA) who confirms his wishes. Management transitioned to palliative care / comfort measures only. . Consultants: Misty GRAYSON
[2017-06-05] VITALS: O2SAT 80
[2017-06-05] MEDS ORDERED: CHECK SCOPOLAMINE PATCH PLACEMENT SCH
--- NOTE | 2017-06-05 01:32 | Progress Note ---
Progress Note Date of Service Jun 05, 2017. Progress Note I was called in to see the patient who had stopped breathing at around 1:10AM on 06/05/17 Patient had a complicated hospital course, including an ICU transfer with intubation. Most recently, Mr. Krishnamurthyr and family decided that he wanted to be comfort measures only. Morphine drip was started and patient had been comfortable. I entered the room and met with multiple family members, offered condolences. They agreed that patient was comfortable throughout the night. Short exam: Pupils are fixed and dilated No spontaneous respirations No pulse Time of : 1:10AM on 06/05/2017 Cause of : Multifactorial; pneumonia, ARDS, chronic MRSA infection, chronic hypercapnic respiratory failure, paraplegia
== END 2017-06-05 03:31 | disposition expired | DRG 193 ==
LOC: EDBD 14:03 → C.EDB 14:05 → C.2E 16:11 → ENRESERV 17:31 → CANBEDREQ 06-01 12:20 → C.MS2W 06-01 14:05 → CANBEDREQ 06-02 00:53 → CANRESERV 06-02 00:58 → ENRESERV 06-02 00:58 → C.2E 06-02 01:35 → ENRESERV 06-02 02:13 → C.MSICU 06-02 02:14 → ENRESERV 06-03 17:58 → C.MS2W 06-03 19:14
PROVIDERS: ADMIT Hospitalist; ATTEND Hospitalist
DX: J18.9 Pneumonia, unspecified organism (principal); G93.41 Metabolic encephalopathy; J96.01 Acute respiratory failure with hypoxia; G82.20 Paraplegia, unspecified; N39.0 Urinary tract infection, site not specified; Z51.5 Encounter for palliative care; I48.91 Unspecified atrial fibrillation; I25.10 Atherosclerotic heart disease of native coronary artery without angina pectoris; E78.5 Hyperlipidemia, unspecified; I10 Essential (primary) hypertension; I25.2 Old myocardial infarction; Z79.01 Long term (current) use of anticoagulants; Z87.891 Personal history of nicotine dependence; Z87.440 Personal history of urinary (tract) infections; Z79.4 Long term (current) use of insulin; Z83.3 Family history of diabetes mellitus; Z82.49 Family history of ischemic heart disease and other diseases of the circulatory system; Z80.42 Family history of malignant neoplasm of prostate; Z80.8 Family history of malignant neoplasm of other organs or systems; Z82.3 Family history of stroke